=== PATIENT | male | born 1995 | race Two or more races ===

== ENCOUNTER 2024-06-07 17:27 | Inpatient (IN) | payer BC ==
[~2024-06-07] VITALS: Ht 167.6 cm; Wt 68.5 kg
[2024-06-08] VITALS (8 sets, daily range): BP systolic 109–118; BP diastolic 69–79; PULSE 94–126; RESP 17–96; TEMP 97.4–98.4; O2SAT 90–97
--- NOTE | 2024-06-08 10:52 | DVHHP2 ---
History of Present Illness History of Present Illness A 28-year-old homosexual male patient; who was recently diagnosed with HIV, not on treatment; who presented with cough to [facility] and was transferred to [facility] for further evaluation and treatment. Smoke: No ALCOHOL: none Drugs: None Review of Systems Respiratory: Cough (Productive) Allergies: Coded Allergies: NO KNOWN ALLERGIES (Unverified , 06/08/24) Exam Vital Signs Vital Signs Date Time Temp Pulse Resp B/P (MAP) Pulse Ox O2 Delivery O2 Flow Rate FiO2 06/08/24 08:53 97.9 94 17 109/75 (86) 96 97.9 06/08/24 05:35 Room Air* 0 21 Exam Multiple tattoos General Appearance: Alert, Oriented X3, Cooperative, No acute distress HEENT: Atraumatic Respiratory: Other (Scattered crackles; good air entry bilateral) Cardiovascular: Regular rate, Normal S1, Normal S2 Abdominal: Normal bowel sounds, Soft, No tenderness Neuro: Normal gait, Normal speech, Strength at 5/5 X4 ext, Normal tone, Sensation intact, Cranial nerves 3-12 NL, Reflexes 2+ Psych/Mental Status: Mental status NL, Mood NL Labs/Xrays Ordered chest CT without contrast along with blood work and sputum culture Assessment/Plan Assessment/Plan A 28-year-old homosexual male patient; who was recently diagnosed with HIV, not on treatment; who presented with cough to [facility] and was transferred to [facility] for further evaluation and treatment. #Productive cough due to bilateral pneumonia with the possibility of atypical infection including atypical tubercular mycobacterial fungal infections in the setting of recently diagnosed HIV; started on IV azithromycin and ceftriaxone; ordered and reviewed chest CT without IV contrast; ordered sputum culture; pulmonology is following; ID consulted; now on room air; to start oxygen therapy if indicated; continue monitoring #Recently diagnosed with HIV in the setting of homosexual male; ordered blood work; ID consulted; discussed using protection for sexual activities; continue monitoring #Normocytic anemia; unclear etiology; no signs/symptoms of active bleeding; continue monitoring #Elevated liver enzymes; mild; unclear etiology; avoid hepatotoxic agents; continue monitoring Goals of care discussed with the patient for 20 minutes; full code. Late Entry. This medical document was created using an electronic medical record system with computerized dictation system. Although this document has been carefully reviewed, there might still be some phonetic and typographical errors. These areas are purely typographical due to imperfections of the software programs, and do not reflect any compromise in the patient's medical care. Plan discussed with: Patient, Other (Nurse) Date of Service: Jun 08, 2024 Billing Provider: MADY BAEZ MD Common Visit Codes: 90570-[id number] INP/OBS CARE (HIGH) Secondary Visit Codes: 34580-[id number] CARE PLAN 30 MINUTES (20 minutes) MADY BAEZ MD Jun 08, 2024 10:52
[2024-06-08 11:49] LABS: Hematocrit 34.3 % (41.0-53.0); Hemoglobin 11.5 g/dL (13.5-17.5); Mean Corpuscular Hemoglobin 27.7 pg (28.0-32.0); Mean Corpuscular Hgb Conc. 33.5 g/dL (32.0-36.0); Mean Corpuscular Volume 82.6 fL (80.0-100.0); Platelet Count (auto) 253 10^3/uL (140-450); Red Blood Cells 4.16 10^6/uL (4.5-5.90); Red Cell Distribution Width 15.7 % (11.8-14.3); White Blood Cell 5.5 10^3/uL (4.4-10.8)
[2024-06-08 11:56] LABS: Basophils % (manual) 0 (0.0-2.0); Blast Cells 0; Metamyelocytes % 0; Myelocytes % 0; Promyelocytes % 0; Reactive Lymphocytes 0
[2024-06-08 11:57] LABS: Alanine Aminotransferase 30 U/L (7-40); Albumin 3.9 g/dL (3.2-4.8); Anion Gap 8 (5-15); Bilirubin, Total 0.5 mg/dL (0.2-1.0); Calcium 9.7 mg/dL (8.7-10.4); Carbon Dioxide 27 mmol/L (20-31); Chloride 101 mmol/L (98-107); Glucose 93 mg/dL (74-106); Potassium 3.7 mmol/L (3.5-5.1); Sodium 136 mmol/L (136-145); Total Protein 8.1 g/dL (5.7-8.2)
[2024-06-08 12:01] LABS: Alkaline Phosphatase 117 U/L (46-116); Aspartate Aminotransferase 45 U/L (13-40); Blood Urea Nitrogen 9 mg/dL (9-23)
[2024-06-08] MEDS: guaiFENesin-DM 100/10mg/5ml SYR PO ONE (12:10)
--- NOTE | 2024-06-08 12:30 | DVH ---
Procedure: CT CHEST WITHOUT CONTRAST Reason for study/Clinical History: 28 years old, Male; Acute respiratory distress in HIV positive pa steven.. Comparison Study: None available at time of dictation. Exam Date: 06/08/2024 11:27 AM TECHNIQUE: Multidetector CT of the chest was performed from the lung apices to the upper abdomen with out the use of intravenous contract. Axial, coronal and sagittal multiplanar reformats were performed . Radiation dose Information: CT Dose: CTDI volume is 5.45 mGy. Dose-length product is 203.89 mGy*cm The dose indicators for CT are the volume computed Tomography (CT) dose Index (CTDIvol) and the dose Length product (DLP), and are measured in units of mGy and mGy-cm, respectively. These indicators are not patient dose, but values generated from the CT scanner acquisition factors. The report includes radiation exposure data for exposures received during this examination. FINDINGS: Lower neck: Normal thyroid. Lungs: Patchy ground-glass opacities in both lungs. Nodules in the left lower lung measuring up to 23 mm and 12 mm. Atelectasis and scarring in the lung bases. Heart/Vascular Structures: Normal heart size. No pericardial effusion. Lymph Nodes: No adenopathy Pleura: No pleural effusion or significant pneumothorax. Musculoskeletal: No acute osseous abnormality. Soft tissues: Normal. Upper abdomen: Limited portions of the upper abdomen are unremarkable. IMPRESSION: 1. Patchy ground-glass opacities in both lungs with superimposed nodules in the left lower lung. Fin dings are likely infectious / inflammatory. Consider atypical infections. Nodules would be amenable t o CT-guided biopsy if clinically indicated. Recommend clinical correlation and continued follow-up to resolution. Radiation optimization: All CT scans at this facility use at least one of these dose optimization soumya hniques: Automated exposure control mA and/or kV adjustment per patient size (includes targeted exams where dose is matched to clinical indication) or iterative reconstruction. HS:Y
[2024-06-08] MEDS: AZITHROMYCIN 500MG/ 250ML 250 ML IV ONE ×2 (13:15→17:30)
[2024-06-08 13:18] LABS: Band Neutrophils % (manual) 7; Eosinophils % (manual) 4 (0-7); Lymphocytes % (manual) 25 (10.0-50.0); Monocytes % (manual) 14 (0-12); Platelet Estimate Adequate
[2024-06-08] MEDS: cefTRIAXone 1GM/50ML D5W 50 ML IV ONE (15:46)
[2024-06-08] MEDS: guaiFENesin-DM 100/10mg/5ml SYR PO PRN (16:18)
--- NOTE | 2024-06-08 17:01 | ECG ---
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
--- NOTE | 2024-06-08 19:21 | DVHINCON2 ---
Date of service: Jun 08, [address] Cruz Reason for Consultation atypical pneumonia History of Present Illness A 28 yo M with recent diagnosis of HIV at [facility] with bilateral infiltrates. The patient was transferred for possible bronchoscopy and ID evaluation to [facility] c/o cough since February, progressively getting worse. A/w some fever and weight loss. . PAST MEDICAL HISTORY: no medical problems PAST SURGICAL HISTORY: None. ALLERGIES: None. SOCIAL HISTORY: Occasionally drinks. Denies any smoking or major drug use. Homosexual. FAMILY HISTORY: Noncontributory. MEDICATIONS: Reviewed. Family History: Diabetes mellitus G8 MOTHER G8 FATHER Ischemic heart disease G8 MOTHER G8 FATHER Allergies: Coded Allergies: NO KNOWN ALLERGIES (Unverified , 06/08/24) Home Meds No Active Prescriptions or Reported Meds Current Medications Current Medications Medications (Trade) Dose Ordered Sig/Sean Route PRN Reason Start Time Stop Time Status Last Admin Guaifenesin/ Dextromethorphan (Robitussin-Dm Liquid) 10 ml Q4HP PRN PO FOR COUGH 06/08/24 11:00 06/08/24 16:18 Azithromycin 250 ml @ 125 mls/hr DAILY IV 06/09/24 10:00 06/08/24 17:27 DC Ceftriaxone Sodium 50 ml @ 100 mls/hr DAILY@09 IV 06/09/24 09:00 Azithromycin 250 ml @ 125 mls/hr DAILY IV 06/09/24 10:00 Vital Signs Vital Signs Date Time Temp Pulse Resp B/P (MAP) Pulse Ox O2 Delivery O2 Flow Rate FiO2 06/08/24 16:40 98.0 126 17 116/79 (91) 91 98.0 06/08/24 08:00 Room Air* 0 21 Physical Exam General alert and oriented HEENT: Atraumatic Neck: No swelling Lungs: Equal air entry and clear to auscultation Cardiovascular: S2 heard no murmur Abdomen: Soft nontender, no organomegaly, nondistended Neuro: Alert and oriented, no focal deficit Psych: Normal mood and affect Labs/Diagnostic Data Labs Test 06/08/24 11:16 Range/Units White Blood Count 5.5 4.4-10.8 10^3/uL Red Blood Count 4.16 L 4.5-5.90 10^6/uL Hemoglobin 11.5 L 13.5-17.5 g/dL Hematocrit 34.3 L 41.0-53.0 % Mean Corpuscular Volume 82.6 80.0-100.0 fL Mean Corpuscular Hemoglobin 27.7 L 28.0-32.0 pg Mean Corpuscular Hemoglobin Concent 33.5 32.0-36.0 g/dL Red Cell Distribution Width 15.7 H 11.8-14.3 % Platelet Count 253 140-450 10^3/uL Mean Platelet Volume 9.7 6.9-10.8 fL Neutrophils (%) (Auto) 37.0-80.0 % Lymphocytes (%) (Auto) 10.0-50.0 % Monocytes (%) (Auto) 0.0-12.0 % Basophils (%) (Auto) 0.0-2.0 % Neutrophils # (Auto) 1.6-8.6 10 ^3/uL Lymphocytes # (Auto) 0.4-5.4 10 ^3/uL Monocytes # (Auto) 0-1.3 10 ^3/uL Differential Total Cells Counted 100.0 100 Neutrophils % (Manual) 50 37.0-80.0 Band Neutrophils % (Manual) 7 Lymphocytes % (Manual) 25 10.0-50.0 Monocytes % (Manual) 14 H 0-12 Eosinophils % (Manual) 4 0-7 Basophils % (Manual) 0 0.0-2.0 Metamyelocytes % (manual) 0 Myelocytes % (Manual) 0 Promyelocytes % (Manual) 0 Blast Cells % (Manual) 0 Reactive Lymphocytes 0 Platelet Estimate Adequate Sodium Level 136 136-145 mmol/L Potassium Level 3.7 3.5-5.1 mmol/L Chloride Level 101 98-107 mmol/L Carbon Dioxide Level 27 20-31 mmol/L Anion Gap 8 5-15 Blood Urea Nitrogen 9 9-23 mg/dL Creatinine 0.60 L 0.700-1.30 mg/dL Glomerular Filtration Rate Calc 135 >90 mL/min BUN/Creatinine Ratio 15.0 10.0-20.0 Serum Glucose 93 74-106 mg/dL Calcium Level 9.7 8.7-10.4 mg/dL Total Bilirubin 0.5 0.2-1.0 mg/dL Aspartate Amino Transferase (AST) 45 H 13-40 U/L Alanine Aminotransferase (ALT) 30 7-40 U/L Alkaline Phosphatase 117 H 46-116 U/L Total Protein 8.1 5.7-8.2 g/dL Albumin 3.9 3.2-4.8 g/dL Assessment A 28 yo male with Newly diagnosed HIV multifocal pneumonia: atypical in nature pulmonary nodule Homosexual recommendations Pulmonary consult need bronchoscopy patient is clinically stable DD is MAC/ Fungal like PCP or viral.. however bacterial cannot be ruled out send sputum cultures. recommend bronch, BAL sample to be sent for bacterial, fungal, AFB and viral cultures. also need BAL for PCP, urine legionella ag mycoplasma serology send blood sample for Cd4 count. prognosis gaurded thank you for consult Plan discussed with: Other HOMERO VIGIL MD Jun 08, 2024 19:21
--- NOTE | 2024-06-08 20:16 | DVHINCON2 ---
DATE OF CONSULTATION: 06/08/2024 PULMONARY CONSULT PRIMARY PHYSICIAN: Dr. Ernestine Cruz The patient was seen earlier in the day. The patient was transferred to [facility] where he was detected to be HIV positive with bilateral infiltrates. The patient was transferred for possible bronchoscopy and ID evaluation. The patient has been having cough since February, which is sometimes getting worse and sometimes the same. The patient does bring up expectoration, it is mostly blood, but sometimes yellow. He had some fever intermittently, but does not have any fever currently. He denies any orthopnea or PND. He is mildly short of breath with exertion. He has lost about 3-4 pounds. He denies any orthopnea, PND, hemoptysis. PAST MEDICAL HISTORY: Largely unremarkable. Denies any known history of hypertension, diabetes, coronary artery disease, congestive heart failure, strokes. Denies any liver, kidney or thyroid problems. Denies any known cancers. He did not know prior to the admission that he was HIV positive. He was not on any medications. He did not know his viral load or CD4 count. He was not on any prophylaxis. PAST SURGICAL HISTORY: None. ALLERGIES: None. SOCIAL HISTORY: Occasionally drinks. Denies any smoking or major drug use. FAMILY HISTORY: Noncontributory. MEDICATIONS: Reviewed. PHYSICAL EXAMINATION: VITAL SIGNS: Stable, afebrile. Respiratory rate is 18. He is in no distress. GENERAL: He is lying flat in bed. There is no obvious orthopnea, no use of accessory muscles. HEENT: Unremarkable. Tongue moist. NECK: Supple. CHEST: Reveals bilateral rales, diminished air entry at bases. COR: S1, S2. No murmurs, no gallops. ABDOMEN: Soft, nontender. Bowel sounds normal. EXTREMITIES: No edema or clubbing. LABORATORY DATA: Lab work was noted. WBC 5.6, hematocrit 34, platelet count 253, 50% neutrophils, 25% lymphocytes, 14% monocytes. The CMP reveals AST of 45, alkaline phosphatase 117. Serology is pending. PSR is pending. The patient's ID consult is pending. CAT scan from [facility] had shown bilateral infiltrates with some areas of consolidation. There is also ground glass opacities. The patient also had CT done over here, which was reviewed and shows patchy ground glass opacities in both lungs, superimposed nodules in the left lung. HIV antibodies were positive in [place]. The CD4 count was around 89. IMPRESSION: Bilateral pneumonia, possible risk of atypical infections, risk of atypical tubercular mycobacterial fungal infections. PCP were all discussed with the patient. I will await evaluation by ID and start of antiviral therapy. We will start him on azithromycin and Rocephin, guaifenesin for sputum cultures. Titrate oxygen if needed to keep saturations greater than 90. I will await infectious control clearance before proceeding with bronchoscopy. I have asked the bedside RN to call us once that has been obtained. Risks, benefits, options, alternatives and limitations of bronchoscopy were discussed with the patient. Importance of regular followup compliance and treatment of HIV was also discussed. I have also asked him to inform his partners. Rest of medical management depends on response and course in hospital. Dr. Banda is covering for me over the weekend if needed. Thank you for asking me to see this patient. MD JUNIOR Herron/AMARI TID: [id number] RECEIPT: [id number] cc: Ernestine Cruz
[2024-06-09] VITALS (7 sets, daily range): BP systolic 96–123; BP diastolic 50–73; PULSE 98–115; RESP 18–96; TEMP 97.6–98.9; O2SAT 94–98
--- NOTE | 2024-06-09 06:57 | DVHPN2 ---
Subjective Continue to have protective cough Reviewed: Care Plan, H&P, Labs, Medications, Previous Orders, Radiology, Other (Consultations) Changes from previous H/P or p: No Changes Objective Vitals Vital Signs Date Time Temp Pulse Resp B/P (MAP) Pulse Ox O2 Delivery O2 Flow Rate FiO2 06/09/24 05:00 97.6 113 19 105/73 (84) 95 97.6 06/08/24 20:00 Room Air* 0 21 Intake/Output Intake and Output 06/09/24 07:00 Intake Total 800 ml Balance 800 ml Intake Oral 800 ml # Voids 3 # Bowel Movements 2 General Appearance: Alert, Oriented X3, Cooperative, No acute distress HEENT: Atraumatic Lungs: Other (Bibasal wet crackles) Cardiovascular: Regular rate, Normal S1, Normal S2, No murmurs Abdomen: Normal bowel sounds, Soft, No tenderness, No hepatospenomegaly Extremities: No edema Neuro: Normal speech, Cranial nerves 3-12 NL Psych/Mental Status: Mental status NL, Mood NL Medications Current Medications Medications Dose Ordered Sig/Sean Route Start Time Stop Time Status Last Admin Dose Admin Guaifenesin/ Dextromethorphan 10 ml Q4HP PRN PO 06/08/24 11:00 06/08/24 16:18 10 ML Ceftriaxone Sodium 50 ml @ 100 mls/hr DAILY@09 IV 06/09/24 09:00 Azithromycin 250 ml @ 125 mls/hr DAILY IV 06/09/24 10:00 Laboratory Results Laboratory Tests 06/08/24 11:16 Chemistry Test 06/08/24 11:16 Albumin 3.9 g/dL (3.2-4.8) Calcium Level 9.7 mg/dL (8.7-10.4) Total Protein 8.1 g/dL (5.7-8.2) LFT Test 06/08/24 11:16 Alanine Aminotransferase (ALT) 30 U/L (7-40) Alkaline Phosphatase 117 U/L (46-116) H Aspartate Amino Transferase (AST) 45 U/L (13-40) H Total Bilirubin 0.5 mg/dL (0.2-1.0) Labs and/or images reviewed: Labs reviewed by me, Image(s) reviewed by me Assessment/Plan Assessment/Plan A 28-year-old homosexual male patient; who was recently diagnosed with HIV, not on treatment; who presented with cough to [facility] and was transferred to [facility] for further evaluation and treatment. #Productive cough due to bilateral pneumonia with the possibility of atypical infection including atypical tubercular mycobacterial fungal infections in the setting of recently diagnosed HIV; started on IV azithromycin and ceftriaxone; ordered and reviewed chest CT without IV contrast; ordered sputum culture; pulmonology is following; ID is following: Recommended bronchoscopy with BAL; now on room air; to start oxygen therapy if indicated; continue monitoring #Recently diagnosed with HIV in the setting of homosexual male; pending blood work; ID is following; discussed using protection for sexual activities; continue monitoring #Normocytic anemia; unclear etiology; no signs/symptoms of active bleeding; continue monitoring #Elevated liver enzymes; mild; unclear etiology; avoid hepatotoxic agents; continue monitoring Late Entry. This medical document was created using an electronic medical record system with computerized dictation system. Although this document has been carefully reviewed, there might still be some phonetic and typographical errors. These areas are purely typographical due to imperfections of the software programs, and do not reflect any compromise in the patient's medical care. Plan discussed with: Patient, Other (Nurse) My Orders Orders - MADY BAEZ MD Procedure Category Date Status Time Admit ADMIT 06/08/24 Transmitted 10:52 * Infectious [place]- Dr. CONS 06/08/24 Transmitted [place] 10:55 Regular Diet DIET 06/08/24 Transmitted Lunch Guaifenesin-Dextromet PHA 06/08/24 In Process Liquid (Robitussin 11:[address] 06/08/24 Resulted 10:55 Hiv 1 Quant Pcr LAB 06/08/24 In Process Nongraphical 11:00 Complete Blood Count LAB 06/09/24 Logged 04:00 Comprehensive LAB 06/09/24 Logged Metabolic Panel 04:00 Ceftriaxone 1gm/50ml PHA 06/09/24 In Process D5w (Rocephin) 09:00 Azithromycin 500mg/ PHA 06/09/24 In Process 250ml (Zithromax 50 10:00 Hiv 1&2 Antibody LAB 06/08/24 Logged 18:46 Code Status CODE 06/09/24 Transmitted 06:47 Complete Blood Count LAB 06/10/24 Verified 04:00 Comprehensive LAB 06/10/24 Verified Metabolic Panel 04:00 Complete Blood Count LAB 06/11/24 Verified 05:00 Complete Blood Count LAB 06/12/24 Verified 05:00 Complete Blood Count LAB 06/13/24 Verified 05:00 Complete Blood Count LAB 06/14/24 Verified 05:00 Comprehensive LAB 06/11/24 Verified Metabolic Panel 04:00 Date of Service: Jun 09, 2024 Billing Provider: MADY BAEZ MD Common Visit Codes: [id number] INP/OBS CARE(HIGH) MADY BAEZ MD Jun 09, 2024 06:57
[2024-06-09] MEDS ORDERED: AZITHROMYCIN 500MG/ 250ML 250 ML IV SCH (10:00)
[2024-06-09 10:53] LABS: Hemoglobin 11.8 g/dL (13.5-17.5); Mean Corpuscular Hemoglobin 27.9 pg (28.0-32.0); Mean Corpuscular Hgb Conc. 33.8 g/dL (32.0-36.0); Mean Corpuscular Volume 82.5 fL (80.0-100.0); Platelet Count (auto) 262 10^3/uL (140-450); Red Blood Cells 4.24 10^6/uL (4.5-5.90); Red Cell Distribution Width 15.9 % (11.8-14.3); White Blood Cell 5.4 10^3/uL (4.4-10.8)
[2024-06-09 10:56] LABS: Basophils % (manual) 0 (0.0-2.0); Blast Cells 0; Metamyelocytes % 0; Myelocytes % 0; Promyelocytes % 0; Reactive Lymphocytes 0
[2024-06-09 11:03] LABS: Alanine Aminotransferase 31 U/L (7-40); Anion Gap 7 (5-15); BUN/Creatinine Ratio 14.8 (10.0-20.0); Bilirubin, Total 0.5 mg/dL (0.2-1.0); Blood Urea Nitrogen 9 mg/dL (9-23); Calcium 9.5 mg/dL (8.7-10.4); Carbon Dioxide 27 mmol/L (20-31); Chloride 101 mmol/L (98-107); Potassium 3.7 mmol/L (3.5-5.1); Total Protein 8.1 g/dL (5.7-8.2)
[2024-06-09] MEDS: cefTRIAXone 1GM/50ML D5W 50 ML IV SCH (11:08)
[2024-06-09 11:10] LABS: Alkaline Phosphatase 119 U/L (46-116); Aspartate Aminotransferase 40 U/L (13-40); Glucose 114 mg/dL (74-106); Sodium 135 mmol/L (136-145)
[2024-06-09 11:22] LABS: Band Neutrophils % (manual) 2; Eosinophils % (manual) 6 (0-7); Lymphocytes % (manual) 21 (10.0-50.0); Monocytes % (manual) 9 (0-12)
[2024-06-09 11:25] LABS: Platelet Estimate Adequate
[2024-06-09] MEDS: AZITHROMYCIN 500MG/ 250ML 250 ML IV SCH (11:38)
--- NOTE | 2024-06-09 21:21 | DVHPN2 ---
Progress Note - Dictate Date Seen: Jun 09, 2024 Medical Necessity Reason Pt with a Central, PICC or Fol: No Subjective patient is awake and alert. No S/S of distress/SOB or pain. vital signs Vital Sign Date Time Temp Pulse Resp B/P (MAP) Pulse Ox O2 Delivery O2 Flow Rate FiO2 06/09/24 17:00 98.9 111 20 105/52 (69) 96 98.9 06/09/24 07:37 Room Air* 0 21 Total Intake and Output 06/08/24 06/08/24 06/09/24 15:00 23:00 07:00 Intake Total 500 ml 300 ml Balance 500 ml 300 ml medications Current Medications Medications Dose Ordered Sig/Sean Route Start Time Stop Time Status Last Admin Dose Admin Guaifenesin/ Dextromethorphan 10 ml Q4HP PRN PO 06/08/24 11:00 06/09/24 14:24 10 ML Ceftriaxone Sodium 50 ml @ 100 mls/hr DAILY@09 IV 06/09/24 09:00 06/09/24 11:08 100 MLS/HR Azithromycin 250 ml @ 125 mls/hr DAILY IV 06/09/24 10:00 06/09/24 11:38 125 MLS/HR Enoxaparin Sodium 40 mg DAILY SC 06/10/24 10:00 objective General Appearance: Alert, Oriented X3, Cooperative, No acute distress HEENT: Atraumatic Respiratory: Other (Scattered crackles; good air entry bilateral) Cardiovascular: Regular rate, Normal S1, Normal S2 Abdominal: Normal bowel sounds, Soft, No tenderness Neuro: Normal gait, Normal speech, Strength at 5/5 X4 ext, Normal tone, Sensation intact, Cranial nerves 3-12 NL, Reflexes 2+ Psych/Mental Status: Mental status NL, Mood NL laboratory and microbiology Laboratory Tests 06/09/24 10:26 Test 06/09/24 10:26 Range/Units Serum Glucose 114 H 74-106 mg/dL Assessment/Plan A 28 yo male with Newly diagnosed HIV multifocal pneumonia: atypical in nature pulmonary nodule Homosexual elevated LFT anemia recommendations Pulmonary consult need bronchoscopy patient is clinically stable ; cont ceftriaxone and Azithromycin DD is MAC/ Fungal like PCP or viral.. however bacterial cannot be ruled out send sputum cultures. recommend bronch, BAL sample to be sent for bacterial, fungal, AFB and viral cultures. also need BAL for PCP, urine legionella ag mycoplasma serology send blood sample for Cd4 count. prognosis gaurded thank you for consult Plan discussed with: HOMERO Gray MD Jun 09, 2024 21:21
--- NOTE | 2024-06-09 23:51 | DVHINCON2 ---
Date of service: Jun 09, 2024 Referring Physician Ernestine Cruz MD Reason for Consultation Cough, possible bronchoscopy History of Present Illness A 28-year-old man with recent diagnosis of HIV at [facility] with bilateral infiltrates. The patient was transferred for possible bronchoscopy and ID evaluation to [facility] on 06/08/24. Patient complains of cough since February, progressively getting worse and associated with some fever and weight loss. Patient was admitted for further care and pulmonary consultation is requested for evaluation and management due to the above findings. Review of Systems: 14-point review of systems negative unless otherwise noted above. Past Medical History: Recent diagnosis of HIV Past Surgical History: Denies Medications: Reviewed. Allergies: No known drug allergies. Family History: DM and heart disease. Social History: Nonsmoker. Alcohol - occasionally drinks. No illicit drug use. Patient is homosexual. Family History: Diabetes mellitus G8 MOTHER G8 FATHER Ischemic heart disease G8 MOTHER G8 FATHER Allergies: Coded Allergies: NO KNOWN ALLERGIES (Unverified , 06/08/24) Home Meds No Active Prescriptions or Reported Meds Current Medications Current Medications Medications (Trade) Dose Ordered Sig/Sean Route PRN Reason Start Time Stop Time Status Last Admin Azithromycin 250 ml @ 125 mls/hr DAILY IV 06/09/24 10:00 06/08/24 17:27 DC Ceftriaxone Sodium 50 ml @ 100 mls/hr DAILY@09 IV 06/09/24 09:00 06/09/24 11:08 Azithromycin 250 ml @ 125 mls/hr DAILY IV 06/09/24 10:00 06/09/24 11:38 Enoxaparin Sodium (Lovenox) 40 mg DAILY SC 06/10/24 10:00 Vital Signs Vital Signs Date Time Temp Pulse Resp B/P (MAP) Pulse Ox O2 Delivery O2 Flow Rate FiO2 06/09/24 21:00 98.5 115 18 123/73 (90) 94 98.5 06/09/24 20:00 Room Air* 0 21 Physical Exam Gen.: Patient lying in bed in no apparent distress. Breathing on room air. Head: Normocephalic, atraumatic. Eyes: EOMI/PERRLA. Ears: Normal hearing. Normal anatomy. Neck/trachea: Trachea midline, supple. Nose: Normal external anatomy. Mouth: Moist mucous membranes. Chest: Decreased air entry bilaterally. No wheezing or rhonchi. Cardiovascular: Positive S1, positive S2. Regular rate and rhythm. Abdomen: Positive bowel sounds in all 4 quadrants. Soft, non-tender, non- distended. : Deferred. Rectal: Deferred. Skin: Warm, dry. Intact. Extremities: 2+ radial pulses bilaterally. No lower extremity edema. Neuro: Awake, alert, oriented x3. No gross motor or sensory deficits. Cranial nerves II through XII intact. Gait not assessed. Labs/Diagnostic Data Labs Test 06/09/24 23:22 06/09/24 10:26 06/08/24 11:16 Range/Units White Blood Count 5.4 4.4-10.8 10^3/uL Red Blood Count 4.24 L 4.5-5.90 10^6/uL Hemoglobin 11.8 L 13.5-17.5 g/dL Hematocrit 35.0 L 41.0-53.0 % Mean Corpuscular Volume 82.5 80.0-100.0 fL Mean Corpuscular Hemoglobin 27.9 L 28.0-32.0 pg Mean Corpuscular Hemoglobin Concent 33.8 32.0-36.0 g/dL Red Cell Distribution Width 15.9 H 11.8-14.3 % Platelet Count 262 140-450 10^3/uL Mean Platelet Volume 9.7 6.9-10.8 fL Neutrophils (%) (Auto) 37.0-80.0 % Lymphocytes (%) (Auto) 10.0-50.0 % Monocytes (%) (Auto) 0.0-12.0 % Basophils (%) (Auto) 0.0-2.0 % Neutrophils # (Auto) 1.6-8.6 10 ^3/uL Lymphocytes # (Auto) 0.4-5.4 10 ^3/uL Monocytes # (Auto) 0-1.3 10 ^3/uL Differential Total Cells Counted 100.0 100 Neutrophils % (Manual) 62 37.0-80.0 Band Neutrophils % (Manual) 2 Lymphocytes % (Manual) 21 10.0-50.0 Monocytes % (Manual) 9 0-12 Eosinophils % (Manual) 6 0-7 Basophils % (Manual) 0 0.0-2.0 Metamyelocytes % (manual) 0 Myelocytes % (Manual) 0 Promyelocytes % (Manual) 0 Blast Cells % (Manual) 0 Reactive Lymphocytes 0 Platelet Estimate Adequate Sodium Level 135 L 136-145 mmol/L Potassium Level 3.7 3.5-5.1 mmol/L Chloride Level 101 98-107 mmol/L Carbon Dioxide Level 27 20-31 mmol/L Anion Gap 7 5-15 Blood Urea Nitrogen 9 9-23 mg/dL Creatinine 0.61 L 0.700-1.30 mg/dL Glomerular Filtration Rate Calc 134 >90 mL/min BUN/Creatinine Ratio 14.8 10.0-20.0 Serum Glucose 114 H 74-106 mg/dL Calcium Level 9.5 8.7-10.4 mg/dL Total Bilirubin 0.5 0.2-1.0 mg/dL Aspartate Amino Transferase (AST) 40 13-40 U/L Alanine Aminotransferase (ALT) 31 7-40 U/L Alkaline Phosphatase 119 H 46-116 U/L Total Protein 8.1 5.7-8.2 g/dL Albumin 4.0 3.2-4.8 g/dL HIV (1&2) Antibody Deferred Negative Assessment Impression: Cough HIV (recent diagnosis) Anemia Elevated LFTs Acute hypoxic respiratory failure, resolved Plan: Supplemental oxygen PRN Titrate to keep O2 sats above 92%. Follow up ID recommendations regarding bronch with BAL to r/o opportunistic infection Continue antibiotics Follow up cultures Monitor renal function. Monitor electrolytes. Supplement as necessary. Monitor ins and outs. DVT prophylaxis. Prognosis: Poor given patient's multiple co-morbidities. Rest of plan per hospitalist and other consultants. Thank you Dr. Cruz, for allowing me to participate in this patient's care. Further recommendations will depend on the patient's clinical course. Please do not hesitate to contact me if you have any questions or concerns. This medical document was created using an electronic medical record system with [employer] dictation system. Although these documentations are being carefully reviewed, there may still be some phonetic and typographical changes. The errors are purely typographical, due to imperfection on the software program, and do not reflect any compromise in the patient's medical care. Plan discussed with: Patient, Other (RN/MD Cruz) ANGELIC OTOOLE MD Jun 09, 2024 23:51
[2024-06-10] VITALS (8 sets, daily range): BP systolic 111–132; BP diastolic 66–84; PULSE 105–114; RESP 18–20; TEMP 98.1–98.7; O2SAT 95–97
[2024-06-10 05:55] LABS: Hemoglobin 11.7 g/dL (13.5-17.5); Mean Corpuscular Hemoglobin 27.6 pg (28.0-32.0); Mean Corpuscular Hgb Conc. 33.5 g/dL (32.0-36.0); Mean Corpuscular Volume 82.4 fL (80.0-100.0); Platelet Count (auto) 246 10^3/uL (140-450); Red Blood Cells 4.24 10^6/uL (4.5-5.90); White Blood Cell 4.9 10^3/uL (4.4-10.8)
[2024-06-10 06:05] LABS: Basophils % (manual) 0 (0.0-2.0); Blast Cells 0; Metamyelocytes % 0; Myelocytes % 0; Promyelocytes % 0; Reactive Lymphocytes 0
[2024-06-10 06:17] LABS: Alanine Aminotransferase 31 U/L (7-40); Albumin 3.9 g/dL (3.2-4.8); Anion Gap 7 (5-15); Aspartate Aminotransferase 36 U/L (13-40); BUN/Creatinine Ratio 13.3 (10.0-20.0); Calcium 9.6 mg/dL (8.7-10.4); Carbon Dioxide 25 mmol/L (20-31); Chloride 102 mmol/L (98-107); Glucose 103 mg/dL (74-106); Potassium 3.8 mmol/L (3.5-5.1)
[2024-06-10 06:18] LABS: Bilirubin, Total 0.4 mg/dL (0.2-1.0); Total Protein 8.1 g/dL (5.7-8.2)
[2024-06-10 06:34] LABS: Alkaline Phosphatase 121 U/L (46-116); Blood Urea Nitrogen 8 mg/dL (9-23); Sodium 134 mmol/L (136-145)
[2024-06-10 07:32] LABS: Band Neutrophils % (manual) 10; Eosinophils % (manual) 2 (0-7); Lymphocytes % (manual) 23 (10.0-50.0); Monocytes % (manual) 9 (0-12); Platelet Estimate Adequate
[2024-06-10] MEDS: ENOXAPARIN SOD 40 MG/0.4 ML SYRINGE SC SCH (09:55)
--- NOTE | 2024-06-10 16:15 | DVHPN2 ---
Subjective Decreasing protective cough Reviewed: Care Plan, H&P, Labs, Medications, Previous Orders, Radiology, Other (Consultations) Changes from previous H/P or p: Changes Objective Vitals Vital Signs Date Time Temp Pulse Resp B/P (MAP) Pulse Ox O2 Delivery O2 Flow Rate FiO2 06/10/24 13:00 98.1 105 18 114/66 (82) 96 98.1 06/10/24 08:10 Room Air* 0 21 Intake/Output Intake and Output 06/10/24 07:00 Intake Total 2210 ml Balance 2210 ml Intake Oral 1910 ml IV Total 300 ml # Voids 5 # Bowel Movements 1 General Appearance: Alert, Oriented X3, Cooperative, No acute distress HEENT: Atraumatic Lungs: Other (Bibasal wet crackles) Cardiovascular: Regular rate, Normal S1, Normal S2, No murmurs Abdomen: Normal bowel sounds, Soft, No tenderness, No hepatospenomegaly Extremities: No edema Neuro: Normal speech, Cranial nerves 3-12 NL Psych/Mental Status: Mental status NL, Mood NL Medications Current Medications Medications Dose Ordered Sig/Sean Route Start Time Stop Time Status Last Admin Dose Admin Guaifenesin/ Dextromethorphan 10 ml Q4HP PRN PO 06/08/24 11:00 06/10/24 09:10 10 ML Ceftriaxone Sodium 50 ml @ 100 mls/hr DAILY@09 IV 06/09/24 09:00 06/10/24 09:01 100 MLS/HR Azithromycin 250 ml @ 125 mls/hr DAILY IV 06/09/24 10:00 06/10/24 09:55 125 MLS/HR Enoxaparin Sodium 40 mg DAILY SC 06/10/24 10:00 06/10/24 09:55 40 MG Laboratory Results Laboratory Tests 06/10/24 05:42 Chemistry Test 06/10/24 05:42 Albumin 3.9 g/dL (3.2-4.8) Calcium Level 9.6 mg/dL (8.7-10.4) Total Protein 8.1 g/dL (5.7-8.2) LFT Test 06/10/24 05:42 Alanine Aminotransferase (ALT) 31 U/L (7-40) Alkaline Phosphatase 121 U/L (46-116) H Aspartate Amino Transferase (AST) 36 U/L (13-40) Total Bilirubin 0.4 mg/dL (0.2-1.0) Microbiology Microbiology Date/Time Source Procedure Growth Status 06/09/24 05:00 Sputum Gram Stain - Final Resulted 06/09/24 05:00 Sputum Respiratory Culture - Preliminary Resulted Labs and/or images reviewed: Labs reviewed by me, Image(s) reviewed by me Assessment/Plan Assessment/Plan A 28-year-old homosexual male patient; who was recently diagnosed with HIV, not on treatment; who presented with cough to [facility] and was transferred to [facility] for further evaluation and treatment. #Productive cough due to bilateral pneumonia with the possibility of atypical infection including atypical tubercular mycobacterial fungal infections in the setting of recently diagnosed HIV; continue IV azithromycin and ceftriaxone; ordered and reviewed chest CT without IV contrast; reviewed initial results of sputum culture; pulmonology is following; ID is following: Recommended bronchoscopy with BAL; now on room air; to start oxygen therapy if indicated; to rule out TB; to keep in airborne isolation; continue monitoring #Recently diagnosed with HIV in the setting of homosexual male; reviewed resulted blood work by ID; ID is following; discussed using protection for sexual activities; continue monitoring #Normocytic anemia; unclear etiology; no signs/symptoms of active bleeding; continue monitoring #Elevated liver enzymes; mild; unclear etiology; avoid hepatotoxic agents; continue monitoring #Hyponatremia; very mild; asymptomatic; unclear etiology; continue monitoring Late Entry. This medical document was created using an electronic medical record system with computerized dictation system. Although this document has been carefully reviewed, there might still be some phonetic and typographical errors. These areas are purely typographical due to imperfections of the software programs, and do not reflect any compromise in the patient's medical care. Plan discussed with: Patient, Other (Nurse) Date of Service: Jun 10, 2024 Billing Provider: MADY BAEZ MD Common Visit Codes: [id number] INP/OBS CARE(HIGH) MADY BAEZ MD Jun 10, 2024 16:15
--- NOTE | 2024-06-10 19:41 | DVHPN2 ---
Progress Note - Dictate Date Seen: Jun 10, 2024 Medical Necessity Reason Pt with a Central, PICC or Fol: No Subjective patient is awake and alert. No S/S of distress/SOB or pain. Continue to have cough vital signs Vital Sign Date Time Temp Pulse Resp B/P (MAP) Pulse Ox O2 Delivery O2 Flow Rate FiO2 06/10/24 16:33 98.7 110 20 132/84 (100) 97 98.7 06/10/24 08:10 Room Air* 0 21 Total Intake and Output 06/09/24 06/09/24 06/10/24 15:00 23:00 07:00 Intake Total 300 ml 1260 ml 650 ml Balance 300 ml 1260 ml 650 ml medications Current Medications Medications Dose Ordered Sig/Sean Route Start Time Stop Time Status Last Admin Dose Admin Guaifenesin/ Dextromethorphan 10 ml Q4HP PRN PO 06/08/24 11:00 06/10/24 09:10 10 ML Ceftriaxone Sodium 50 ml @ 100 mls/hr DAILY@09 IV 06/09/24 09:00 06/10/24 09:01 100 MLS/HR Azithromycin 250 ml @ 125 mls/hr DAILY IV 06/09/24 10:00 06/10/24 09:55 125 MLS/HR Enoxaparin Sodium 40 mg DAILY SC 06/10/24 10:00 06/10/24 09:55 40 MG objective General Appearance: Alert, Oriented X3, Cooperative, No acute distress HEENT: Atraumatic Respiratory: Other (Scattered crackles; good air entry bilateral) Cardiovascular: Regular rate, Normal S1, Normal S2 Abdominal: Normal bowel sounds, Soft, No tenderness Neuro: Normal gait, Normal speech, Strength at 5/5 X4 ext, Normal tone, Sensation intact, Cranial nerves 3-12 NL, Reflexes 2+ Psych/Mental Status: Mental status NL, Mood NL laboratory and microbiology Laboratory Tests 06/10/24 05:42 Test 06/10/24 05:42 Range/Units Serum Glucose 103 74-106 mg/dL Assessment/Plan A 28 yo male with Newly diagnosed HIV multifocal pneumonia: atypical in nature pulmonary nodule Homosexual elevated LFT anemia recommendations Pulmonary consult need bronchoscopy patient is clinically stable ; cont ceftriaxone and Azithromycin DD is MAC/ Fungal like PCP or viral.. however bacterial cannot be ruled out send sputum cultures. recommend bronch, BAL sample to be sent for bacterial, fungal, AFB and viral cultures. also need BAL for PCP, urine legionella ag mycoplasma serology send blood sample for Cd4 count. 06/09 : Blood cultures : WBC . epithelial cells and gram positive cocci in pairs present respiratory cultures ; Many growth : Normal Oropharyngeal Karina prognosis gaurded thank you for consult Plan discussed with: Patient HOMERO VIGIL MD Jun 10, 2024 19:41
--- NOTE | 2024-06-10 23:26 | DVHPN2 ---
Progress Note - Dictate Date Seen: Jun 10, 2024 Medical Necessity Reason Pt with a Central, PICC or Fol: No Subjective Patient seen and examined at bedside. Breathing comfortably on room air. Overnight events reviewed. vital signs Vital Sign Date Time Temp Pulse Resp B/P (MAP) Pulse Ox O2 Delivery O2 Flow Rate FiO2 06/10/24 21:00 98.3 111 18 111/66 (81) 96 98.3 06/10/24 20:00 Room Air* 0 21 Total Intake and Output 06/09/24 06/09/24 06/10/24 15:00 23:00 07:00 Intake Total 300 ml 1260 ml 650 ml Balance 300 ml 1260 ml 650 ml medications Current Medications Medications Dose Ordered Sig/Sean Route Start Time Stop Time Status Last Admin Dose Admin Guaifenesin/ Dextromethorphan 10 ml Q4HP PRN PO 06/08/24 11:00 06/10/24 20:41 10 ML Ceftriaxone Sodium 50 ml @ 100 mls/hr DAILY@09 IV 06/09/24 09:00 06/10/24 09:01 100 MLS/HR Azithromycin 250 ml @ 125 mls/hr DAILY IV 06/09/24 10:00 06/10/24 09:55 125 MLS/HR Enoxaparin Sodium 40 mg DAILY SC 06/10/24 10:00 06/10/24 09:55 40 MG objective Gen.: Patient lying in bed in no apparent distress. Breathing on room air. Head: Normocephalic, atraumatic. Eyes: EOMI/PERRLA. Ears: Normal hearing. Normal anatomy. Neck/trachea: Trachea midline, supple. Nose: Normal external anatomy. Mouth: Moist mucous membranes. Chest: Decreased air entry bilaterally. No wheezing or rhonchi. Cardiovascular: Positive S1, positive S2. Regular rate and rhythm. Abdomen: Positive bowel sounds in all 4 quadrants. Soft, non-tender, non- distended. : Deferred. Rectal: Deferred. Skin: Warm, dry. Intact. Extremities: 2+ radial pulses bilaterally. No lower extremity edema. Neuro: Awake, alert, oriented x3. No gross motor or sensory deficits. Cranial nerves II through XII intact. Gait not assessed. laboratory and microbiology Laboratory Tests 06/10/24 05:42 Test 06/10/24 05:42 Range/Units Serum Glucose 103 74-106 mg/dL Assessment/Plan Impression: Cough HIV (recent diagnosis) Anemia Elevated LFTs Events: Remains on room air No respiratory distress. Continue antibiotics Antitussive for cough Obtain consent for bronchoscopy ID recommendations appreciated. Labs reviewed. Rest of plan as noted below Plan: Supplemental oxygen PRN Titrate to keep O2 sats above 92%. ID recommendations appreciated. Obtain consent for bronchoscopy with BAL to r/o opportunistic infection Continue antibiotics Follow up cultures Monitor renal function. Monitor electrolytes. Supplement as necessary. Monitor ins and outs. DVT prophylaxis. Prognosis: Poor given patient's multiple co-morbidities. Rest of plan per hospitalist and other consultants. Thank you Dr. Cruz, for allowing me to participate in this patient's care. Further recommendations will depend on the patient's clinical course. Please do not hesitate to contact me if you have any questions or concerns. This medical document was created using an electronic medical record system with [employer] dictation system. Although these documentations are being carefully reviewed, there may still be some phonetic and typographical changes. The errors are purely typographical, due to imperfection on the software program, and do not reflect any compromise in the patient's medical care. Plan discussed with: Patient, Other (AALIYAH Rain) ANGELIC OTOOLE MD Jun 10, 2024 23:26
[2024-06-11] VITALS (16 sets, daily range): BP systolic 107–120; BP diastolic 70–80; PULSE 101–130; RESP 16–20; TEMP 97.8–100; O2SAT 88–99
[2024-06-11 07:04] LABS: Alanine Aminotransferase 27 U/L (7-40); Albumin 4.2 g/dL (3.2-4.8); Anion Gap 9 (5-15); Aspartate Aminotransferase 36 U/L (13-40); BUN/Creatinine Ratio 13.6 (10.0-20.0); Bilirubin, Total 0.6 mg/dL (0.2-1.0); Calcium 9.9 mg/dL (8.7-10.4); Carbon Dioxide 24 mmol/L (20-31); Chloride 100 mmol/L (98-107); Glucose 96 mg/dL (74-106); Potassium 3.9 mmol/L (3.5-5.1)
[2024-06-11 07:12] LABS: Hematocrit 36.4 % (41.0-53.0); Hemoglobin 12.1 g/dL (13.5-17.5); Mean Corpuscular Hemoglobin 27.3 pg (28.0-32.0); Mean Corpuscular Hgb Conc. 33.1 g/dL (32.0-36.0); Mean Corpuscular Volume 82.5 fL (80.0-100.0); Platelet Count (auto) 270 10^3/uL (140-450); Red Blood Cells 4.42 10^6/uL (4.5-5.90); Red Cell Distribution Width 16.1 % (11.8-14.3); White Blood Cell 6.3 10^3/uL (4.4-10.8)
[2024-06-11 07:13] LABS: Alkaline Phosphatase 123 U/L (46-116); Blood Urea Nitrogen 9 mg/dL (9-23); Sodium 133 mmol/L (136-145); Total Protein 8.7 g/dL (5.7-8.2)
[2024-06-11 08:13] LABS: Basophils % (manual) 0 (0.0-2.0); Blast Cells 0; Metamyelocytes % 0; Myelocytes % 0; Promyelocytes % 0; Reactive Lymphocytes 0
[2024-06-11 09:09] LABS: Band Neutrophils % (manual) 2; Eosinophils % (manual) 4 (0-7); Lymphocytes % (manual) 25 (10.0-50.0); Monocytes % (manual) 8 (0-12); Platelet Estimate Adequate
--- NOTE | 2024-06-11 11:40 | DVHPN2 ---
Subjective Complaining of shortness of breath, and chills Reviewed: Care Plan, H&P, Labs, Medications, Previous Orders, Radiology, Other (Consultations) Changes from previous H/P or p: Changes Objective Vitals Vital Signs Date Time Temp Pulse Resp B/P (MAP) Pulse Ox O2 Delivery O2 Flow Rate FiO2 06/11/24 08:32 97.8 110 18 117/80 (92) 95 97.8 06/11/24 08:06 Room Air* 0 21 Intake/Output Intake and Output 06/11/24 07:00 Intake Total 2260 ml Balance 2260 ml Intake Oral 1960 ml IV Total 300 ml # Voids 5 General Appearance: Alert, Oriented X3, Cooperative, moderate distress HEENT: Atraumatic Lungs: Other (Bibasal wet crackles) Cardiovascular: Regular rate, Normal S1, Normal S2, No murmurs Abdomen: Normal bowel sounds, Soft, No tenderness, No hepatospenomegaly Extremities: No edema Neuro: Normal speech, Cranial nerves 3-12 NL Psych/Mental Status: Mental status NL, Mood NL Medications Current Medications Medications Dose Ordered Sig/Sean Route Start Time Stop Time Status Last Admin Dose Admin Guaifenesin/ Dextromethorphan 10 ml Q4HP PRN PO 06/08/24 11:00 06/11/24 09:27 10 ML Ceftriaxone Sodium 50 ml @ 100 mls/hr DAILY@09 IV 06/09/24 09:00 06/11/24 08:55 100 MLS/HR Azithromycin 250 ml @ 125 mls/hr DAILY IV 06/09/24 10:00 06/11/24 09:28 125 MLS/HR Enoxaparin Sodium 40 mg DAILY SC 06/10/24 10:00 06/11/24 09:27 40 MG Laboratory Results Laboratory Tests 06/11/24 06:00 Chemistry Test 06/11/24 06:00 Albumin 4.2 g/dL (3.2-4.8) Calcium Level 9.9 mg/dL (8.7-10.4) Total Protein 8.7 g/dL (5.7-8.2) H LFT Test 06/11/24 06:00 Alanine Aminotransferase (ALT) 27 U/L (7-40) Alkaline Phosphatase 123 U/L (46-116) H Aspartate Amino Transferase (AST) 36 U/L (13-40) Total Bilirubin 0.6 mg/dL (0.2-1.0) Microbiology Microbiology Date/Time Source Procedure Growth Status 06/09/24 05:00 Sputum Gram Stain - Final Resulted 06/09/24 05:00 Sputum Respiratory Culture - Preliminary Resulted Labs and/or images reviewed: Labs reviewed by me, Image(s) reviewed by me Assessment/Plan Assessment/Plan A 28-year-old homosexual male patient; who was recently diagnosed with HIV, not on treatment; who presented with cough to [facility] and was transferred to [facility] for further evaluation and treatment. #Suspected sepsis in the setting of fever and tachycardia; due to suspected bilateral pneumonia; ordered repeat blood cultures; continue current IV antibiotics; ID is following; ordered lactic acid; continue close monitoring #Acute hypoxic respiratory failure; sudden onset with decreased O2 saturation on room air to 88%; ordered and reviewed repeat chest x-ray; started on oxygen therapy as indicated; ordered nebulizer treatments; ordered D-dimer; continue close monitoring #Productive cough due to bilateral pneumonia with the possibility of atypical infection including atypical tubercular mycobacterial fungal infections in the setting of recently diagnosed HIV; continue IV azithromycin and ceftriaxone; ordered and reviewed chest CT without IV contrast; reviewed initial results of sputum culture; pulmonology is following; ID is following: Recommended bronchoscopy with BAL; now on room air; to start oxygen therapy if indicated; to rule out TB; to keep in airborne isolation; continue monitoring #Recently diagnosed with HIV in the setting of homosexual male; reviewed resulted blood work by ID; ID is following; discussed using protection for sexual activities; continue monitoring #Normocytic anemia; unclear etiology; no signs/symptoms of active bleeding; continue monitoring #Elevated liver enzymes; mild; unclear etiology; avoid hepatotoxic agents; continue monitoring #Hyponatremia; very mild; asymptomatic; unclear etiology; continue monitoring #Elevated D-dimer; ordered chest angiogram; on DVT prophylaxis; continue close monitoring 55 minutes of critical care time. Late Entry. This medical document was created using an electronic medical record system with computerized dictation system. Although this document has been carefully reviewed, there might still be some phonetic and typographical errors. These areas are purely typographical due to imperfections of the software programs, and do not reflect any compromise in the patient's medical care. Plan discussed with: Patient, Other (Nurse) Date of Service: Jun 11, 2024 Billing Provider: MADY BAEZ MD Common Visit Codes: [id number] CARE 30-74 MIN (55 minutes) MADY BAEZ MD Jun 11, 2024 11:40
[2024-06-11] MEDS: ALBUTEROL SULF 2.5 MG/0.5ML(0.5%) NEB SOLN NEB SCH (14:42)
--- NOTE | 2024-06-11 15:19 | DVH ---
Chest x-ray AP portable Comparison: CT chest done 06/08/2024 CLINICAL INDICATION: Shortness of breath FINDINGS: Heart size is normal. Bilateral lower lobe infiltrates, right greater than left. IMPRESSION: 1. Compared to prior CT exam continuing evidence of bibasilar infiltrates
--- NOTE | 2024-06-11 17:13 | DVHPN2 ---
Progress Note - Dictate Date Seen: Jun 11, 2024 Medical Necessity Reason Pt with a Central, PICC or Fol: No Subjective No new acute complaint noted at this time. Decreasing productive cough. vital signs Vital Sign Date Time Temp Pulse Resp B/P (MAP) Pulse Ox O2 Delivery O2 Flow Rate FiO2 06/11/24 16:32 98.6 118 20 111/76 (88) 97 98.6 06/11/24 15:06 2.0 06/11/24 14:42 Nasal Cannula* 28 Total Intake and Output 06/10/24 06/10/24 06/11/24 15:00 23:00 07:00 Intake Total 300 ml 1460 ml 500 ml Balance 300 ml 1460 ml 500 ml medications Current Medications Medications Dose Ordered Sig/Sean Route Start Time Stop Time Status Last Admin Dose Admin Guaifenesin/ Dextromethorphan 10 ml Q4HP PRN PO 06/08/24 11:00 06/11/24 09:27 10 ML Ceftriaxone Sodium 50 ml @ 100 mls/hr DAILY@09 IV 06/09/24 09:00 06/11/24 08:55 100 MLS/HR Azithromycin 250 ml @ 125 mls/hr DAILY IV 06/09/24 10:00 06/11/24 09:28 125 MLS/HR Enoxaparin Sodium 40 mg DAILY SC 06/10/24 10:00 06/11/24 09:27 40 MG Albuterol 2.5 mg Q4HR NEB 06/11/24 11:45 06/11/24 14:42 2.5 MG objective General Appearance: Alert, Oriented X3, Cooperative, No acute distress HEENT: Atraumatic Respiratory: Other (Scattered crackles; good air entry bilateral) Cardiovascular: Regular rate, Normal S1, Normal S2 Abdominal: Normal bowel sounds, Soft, No tenderness Neuro: Normal gait, Normal speech, Strength at 5/5 X4 ext, Normal tone, Sensation intact, Cranial nerves 3-12 NL, Reflexes 2+ Psych/Mental Status: Mental status NL, Mood NL laboratory and microbiology Laboratory Tests 06/11/24 06:00 Test 06/11/24 06:00 Range/Units Serum Glucose 96 74-106 mg/dL Assessment/Plan Patient is a 28-year-old male with AIDS, Cd4: 89 multifocal pneumonia: atypical in nature pulmonary nodule Homosexual elevated LFT anemia Recommendations Patient denies exposure to TB, travel to endemic country, being homeless or in half-way. denies iv drug use. 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 Pulmonary consulted Plan for bronchoscopy tomorrow Patient is clinically stable ; cont Ceftriaxone and Azithromycin DD is MAC/ Fungal like PCP or viral.. however bacterial cannot be ruled out recommend bronch, BAL sample to be sent for bacterial, fungal, AFB and viral cultures. also need BAL for PCP, urine legionella ag mycoplasma serology 06/09 : Blood cultures : WBC . epithelial cells and gram positive cocci in pairs present respiratory cultures ; Many growth : Normal Oropharyngeal Karina 06/11, Blood culture showed no growth prognosis guarded Thank you for consult Plan discussed with: Patient HOMERO VIGIL MD Jun 11, 2024 17:13
--- NOTE | 2024-06-11 23:01 | DVHPN2 ---
Progress Note - Dictate Date Seen: Jun 11, 2024 Medical Necessity Reason Pt with a Central, PICC or Fol: No Subjective Patient seen and examined at bedside. Breathing comfortably on room air. Overnight events reviewed. vital signs Vital Sign Date Time Temp Pulse Resp B/P (MAP) Pulse Ox O2 Delivery O2 Flow Rate FiO2 06/11/24 23:00 108 18 99 06/11/24 21:00 98.7 114/73 (87) 98.7 06/11/24 19:49 Nasal Cannula* 2 28 Total Intake and Output 06/10/24 06/10/24 06/11/24 15:00 23:00 07:00 Intake Total 300 ml 1460 ml 500 ml Balance 300 ml 1460 ml 500 ml medications Current Medications Medications Dose Ordered Sig/Sean Route Start Time Stop Time Status Last Admin Dose Admin Guaifenesin/ Dextromethorphan 10 ml Q4HP PRN PO 06/08/24 11:00 06/11/24 20:52 10 ML Ceftriaxone Sodium 50 ml @ 100 mls/hr DAILY@09 IV 06/09/24 09:00 06/11/24 08:55 100 MLS/HR Azithromycin 250 ml @ 125 mls/hr DAILY IV 06/09/24 10:00 06/11/24 09:28 125 MLS/HR Enoxaparin Sodium 40 mg DAILY SC 06/10/24 10:00 06/11/24 09:27 40 MG Albuterol 2.5 mg Q4HR NEB 06/11/24 11:45 06/11/24 22:51 2.5 MG objective Gen.: Patient lying in bed in no apparent distress. Breathing on room air. Head: Normocephalic, atraumatic. Eyes: EOMI/PERRLA. Ears: Normal hearing. Normal anatomy. Neck/trachea: Trachea midline, supple. Nose: Normal external anatomy. Mouth: Moist mucous membranes. Chest: Decreased air entry bilaterally. No wheezing or rhonchi. Cardiovascular: Positive S1, positive S2. Regular rate and rhythm. Abdomen: Positive bowel sounds in all 4 quadrants. Soft, non-tender, non- distended. : Deferred. Rectal: Deferred. Skin: Warm, dry. Intact. Extremities: 2+ radial pulses bilaterally. No lower extremity edema. Neuro: Awake, alert, oriented x3. No gross motor or sensory deficits. Cranial nerves II through XII intact. Gait not assessed. laboratory and microbiology Laboratory Tests 06/11/24 06:00 Test 06/11/24 06:00 Range/Units Serum Glucose 96 74-106 mg/dL Assessment/Plan Impression: Cough HIV (recent diagnosis) Anemia Elevated LFTs Atypical pneumonia Events: Remains on room air No respiratory distress. Continue antibiotics Antitussive for cough Obtain consent for bronchoscopy ID recommendations appreciated. Plan for bronchoscopy in the morning to obtain BAL for cultures. With full knowledge of the risks and benefits, patient agreed to proceed with procedure. Labs reviewed. Rest of plan as noted below Plan: Supplemental oxygen PRN Titrate to keep O2 sats above 92%. ID recommendations appreciated. Obtain consent for bronchoscopy with BAL to r/o opportunistic infection Continue antibiotics Follow up cultures Monitor renal function. Monitor electrolytes. Supplement as necessary. Monitor ins and outs. DVT prophylaxis. Prognosis: Poor given patient's multiple co-morbidities. Rest of plan per hospitalist and other consultants. Thank you Dr. Cruz, for allowing me to participate in this patient's care. Further recommendations will depend on the patient's clinical course. Please do not hesitate to contact me if you have any questions or concerns. This medical document was created using an electronic medical record system with Zafu dictation system. Although these documentations are being carefully reviewed, there may still be some phonetic and typographical changes. The errors are purely typographical, due to imperfection on the software program, and do not reflect any compromise in the patient's medical care. Plan discussed with: Patient, Other (RN, MD) ANGELIC OTOOLE MD Jun 11, 2024 23:01
[2024-06-12] VITALS (19 sets, daily range): BP systolic 96–118; BP diastolic 48–77; PULSE 98–131; RESP 14–65; TEMP 97.4–100.9; O2SAT 92–100
[2024-06-12 06:48] LABS: INR 1.06 (0.9-1.15); Partial Thromboplastin Time 29.3 SEC (24.5-34.5); Prothrombin Time 11.2 sec (9.3-11.8)
[2024-06-12 07:02] LABS: Hematocrit 34.9 % (41.0-53.0); Hemoglobin 11.7 g/dL (13.5-17.5); Mean Corpuscular Hemoglobin 27.7 pg (28.0-32.0); Mean Corpuscular Hgb Conc. 33.6 g/dL (32.0-36.0); Mean Corpuscular Volume 82.4 fL (80.0-100.0); Platelet Count (auto) 233 10^3/uL (140-450); Red Blood Cells 4.24 10^6/uL (4.5-5.90); White Blood Cell 6.4 10^3/uL (4.4-10.8)
[2024-06-12 07:22] LABS: Alanine Aminotransferase 29 U/L (7-40); Albumin 4.3 g/dL (3.2-4.8); Anion Gap 10 (5-15); Aspartate Aminotransferase 37 U/L (13-40); BUN/Creatinine Ratio 14.5 (10.0-20.0); Blood Urea Nitrogen 9 mg/dL (9-23); Calcium 9.8 mg/dL (8.7-10.4); Carbon Dioxide 23 mmol/L (20-31); Chloride 101 mmol/L (98-107); Glucose 102 mg/dL (74-106)
[2024-06-12 07:23] LABS: Bilirubin, Total 0.5 mg/dL (0.2-1.0)
[2024-06-12 07:24] LABS: Basophils % (manual) 0 (0.0-2.0); Blast Cells 0; Eosinophils % (manual) 0 (0-7); Metamyelocytes % 0; Monocytes % (manual) 0 (0-12); Myelocytes % 0; Promyelocytes % 0; Reactive Lymphocytes 0
[2024-06-12 07:26] LABS: Alkaline Phosphatase 123 U/L (46-116); Sodium 134 mmol/L (136-145); Total Protein 8.6 g/dL (5.7-8.2)
[2024-06-12] MEDS ORDERED: SODIUM CHLORIDE LOCK 10 ML ONE (08:31)
[2024-06-12] MEDS ORDERED: MIDAZOLAM HCL 2MG/2ML 2ml VIAL (1mg/ml) ONE (08:31)
[2024-06-12] MEDS ORDERED: LIDOCAINE 2%HCL (LOCAL ANESTH.) INJ 20ML MDV ONE (08:33)
[2024-06-12] MEDS ORDERED: EPINEPHrine HCL 1 MG/1 ML AMP ONE (08:33)
[2024-06-12] MEDS ORDERED: LIDOCAINE 2% JELLY 11ml (GLYDO) ONE (08:33)
[2024-06-12 09:01] LABS: Band Neutrophils % (manual) 2; Lymphocytes % (manual) 27 (10.0-50.0)
[2024-06-12 09:02] LABS: Platelet Estimate Adequate
[2024-06-12] MEDS: fentaNYL CITRATE 100 MCG/2 ML VL ONE (10:40)
[2024-06-12] MEDS: GLYCOPYRROLATE 0.2 MG/ML 1ML VIAL ONE (10:40)
[2024-06-12] MEDS: diphenhdrAMINE HCL 50 MG/1 ML VL ONE (10:40)
[2024-06-12] MEDS: MIDAZOLAM HCL 5 MG/ML-1ML VIAL ONE (10:40)
--- NOTE | 2024-06-12 11:35 | DVHNC2 ---
Procedure - Bronchoscopy procedure note: Indications: Obtain culture for PCP, AFB smear/culture, Viral, fungal, and gram stain and culture due pt being immunocompromised. 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 Versed 2 mg, Fentanyl 25 mcg, Glycopyrrolate 0.2 mg, Benadryl 50 mg IVP Complications: None Procedure: Patient medications and allergies reviewed. The risks and benefits of the procedure and the sedation options and risk were discussed with the patient's healthcare proxy. All questions were answered and informed consent was obtained. Patient identification and proposed procedure were verified prior to the procedure by the physician, and a nurse, and the respiratory therapist in patient's room. The heart rate, respiratory rate, oxygen saturations, blood pressure, adequacy of pulmonary ventilation, and response to care were monitored throughout the procedure. The physical status of the patient was reassessed after the procedure. After obtaining informed consent, the bronchoscope was introduced through the endotracheal tube and advanced into the trachea bronchial tree of both lungs. The procedure was accomplished without difficulty. The patient tolerated the procedure well. Findings: The trachea is in normal caliber. The bucky is sharp. The tracheobronchial tree of the right lung was examined to at least the first subsegmental level. The bronchial mucosa and anatomy in the right lung are normal. There are no endobronchial lesions. There were no secretions. Right middle lobe (RML) Bronchoalveolar lavage (BAL) obtained. RML BAL sent for gram stain and culture, viral culture, fungal culture, and AFB smear and culture and for silver stain to r/o pneumocystis jiroveci. The left upper lobe, lingula, and left lower lobe were examined to at least the first subsegmental level. Bronchial mucosa and anatomy in the left upper lobe and lingula are normal. There were no endobronchial lesions. There were no secretions. Lingula Bronchoalveolar lavage (BAL) obtained. Lingula BAL sent for gram stain and culture, viral culture, fungal culture, and AFB smear and culture and for silver stain to r/o pneumocystis jiroveci. There was no active bleeding at the completion of the procedure. Estimated blood loss: Less than 5 mL. Impression: RML BAL performed Lingula BAL performed Recommendation: Follow-up RML and lingula BAL results. Procedure codes: 72727, bronchoscopy, rigid and flexible, including fluoroscopic guidance, one performed; with bronchial endobronchial broncho-alveolar lavage, single or multiple sites ANGELIC OTOOLE MD Jun 12, 2024 11:35
--- NOTE | 2024-06-12 11:36 | DVHPN2 ---
Subjective Still complaining of shortness breaths; no recurrence of chills Reviewed: Care Plan, H&P, Labs, Medications, Previous Orders, Radiology, Other (Consultations) Changes from previous H/P or p: Changes Objective Vitals Vital Signs Date Time Temp Pulse Resp B/P (MAP) Pulse Ox O2 Delivery O2 Flow Rate FiO2 06/12/24 09:51 107 16 100 06/12/24 09:45 Nasal Cannula 2.0 06/12/24 09:45 28 06/12/24 09:06 98.4 112/74 (87) 98.4 Intake/Output Intake and Output 06/12/24 07:00 Intake Total 2310 ml Balance 2310 ml Intake Oral 2010 ml IV Total 300 ml # Voids 5 General Appearance: Alert, Oriented X3, Cooperative, mild distress HEENT: Atraumatic Lungs: Other (Bibasal wet crackles) Cardiovascular: Regular rate, Normal S1, Normal S2, No murmurs Abdomen: Normal bowel sounds, Soft, No tenderness, No hepatospenomegaly Extremities: No edema Neuro: Normal speech, Cranial nerves 3-12 NL Psych/Mental Status: Mental status NL, Mood NL Medications Current Medications Medications Dose Ordered Sig/Sean Route Start Time Stop Time Status Last Admin Dose Admin Guaifenesin/ Dextromethorphan 10 ml Q4HP PRN PO 06/08/24 11:00 06/11/24 20:52 10 ML Ceftriaxone Sodium 50 ml @ 100 mls/hr DAILY@09 IV 06/09/24 09:00 06/12/24 08:44 100 MLS/HR Azithromycin 250 ml @ 125 mls/hr DAILY IV 06/09/24 10:00 06/11/24 09:28 125 MLS/HR Enoxaparin Sodium 40 mg DAILY SC 06/10/24 10:00 06/12/24 08:45 40 MG Albuterol 2.5 mg Q4HR NEB 06/11/24 11:45 06/12/24 09:45 2.5 MG Laboratory Results Laboratory Tests 06/12/24 05:40 Chemistry Test 06/12/24 05:40 Albumin 4.3 g/dL (3.2-4.8) Calcium Level 9.8 mg/dL (8.7-10.4) Total Protein 8.6 g/dL (5.7-8.2) H Coagulation Test 06/11/24 13:10 06/12/24 05:40 D-Dimer, Quantitative 1.49 mg/L FEU (0.0-0.49) H Prothrombin Time 11.2 sec (9.3-11.8) Prothrombin Time INR 1.06 (0.9-1.15) Activated Partial Thromboplast Time 29.3 SEC (24.5-34.5) LFT Test 06/12/24 05:40 Alanine Aminotransferase (ALT) 29 U/L (7-40) Alkaline Phosphatase 123 U/L (46-116) H Aspartate Amino Transferase (AST) 37 U/L (13-40) Total Bilirubin 0.5 mg/dL (0.2-1.0) Microbiology Microbiology Date/Time Source Procedure Growth Status 06/09/24 05:00 Sputum Gram Stain - Final Complete 06/09/24 05:00 Sputum Respiratory Culture - Final Complete Labs and/or images reviewed: Labs reviewed by me, Image(s) reviewed by me Assessment/Plan Assessment/Plan A 28-year-old homosexual male patient; who was recently diagnosed with HIV, not on treatment; who presented with cough to [facility] and was transferred to [facility] for further evaluation and treatment. #Suspected sepsis in the setting of fever and tachycardia; due to suspected bilateral pneumonia; repeat blood cultures with no growth so far; continue current IV antibiotics; ID is following; normal lactic acid level; continue close monitoring #Acute hypoxic respiratory failure; status post bronchoscopy with BAL this morning by pulmonology; reviewed chest x-ray after bronchoscopy; continue oxygen therapy as indicated; continue nebulizer treatments; continue close monitoring #Productive cough due to bilateral pneumonia with the possibility of atypical infection including atypical tubercular mycobacterial fungal infections in the setting of recently diagnosed HIV; continue IV azithromycin and ceftriaxone; ordered and reviewed chest CT without IV contrast; reviewed initial results of sputum culture; pulmonology is following; ID is following: Recommended bronchoscopy with BAL; now on room air; to start oxygen therapy if indicated; to rule out TB; to keep in airborne isolation; continue monitoring #Recently diagnosed AIDS in the setting of homosexual male; reviewed resulted blood work by ID; ID is following; discussed using protection for sexual activities; continue monitoring #Normocytic anemia; unclear etiology but most likely inflammatory; no signs/symptoms of active bleeding; continue monitoring #Elevated liver enzymes; mild; unclear etiology; avoid hepatotoxic agents; continue monitoring #Hyponatremia; very mild; asymptomatic; unclear etiology; continue monitoring #Elevated D-dimer; reordered chest angiogram and also placed communication order; on DVT prophylaxis; continue close monitoring Late Entry. This medical document was created using an electronic medical record system with computerized dictation system. Although this document has been carefully reviewed, there might still be some phonetic and typographical errors. These areas are purely typographical due to imperfections of the software programs, and do not reflect any compromise in the patient's medical care. Plan discussed with: Patient, Other (Nurse) My Orders Orders - MADY BAEZ MD Procedure Category Date Status Time Chest Xray 1 View XY 06/11/24 Resulted 11:38 Albuterol Medneb PHA 06/11/24 In Process (Ventolin Medneb) 11:45 Blood Culture [place] 06/11/24 In Process 11:51 Oxygen By Nasal RT 06/11/24 Transmitted Cannula 11:[address] 06/11/24 Logged Contrast 14:52 Urinalysis LAB 06/12/24 Uncollected 02:30 Comprehensive LAB 06/13/24 Verified Metabolic Panel 04:00 Communication Order ORDERS 06/12/24 Transmitted 03:51 Date of Service: Jun 12, 2024 Billing Provider: MADY BAEZ MD Common Visit Codes: [id number] INP/OBS CARE(HIGH) MADY BAEZ MD Jun 12, 2024 11:36
--- NOTE | 2024-06-12 11:39 | DVHNC2 ---
Procedure - I administered moderate sedation throughout the 10 minutes of the procedure. An independent observer administered medications at my direction and monitored the patient's level of consciousness and physiological status throughout the procedure. CPT 06360 for the first 15 minutes. CONSCIOUS SEDATION PROCEDURE NOTE: Procedural Sedation Performed by: Dr Banda Indications: Bronchoscopy for BAL [place] Protocol: a time out was performed and the correct patient and site were verified Consent: The risks and benefits of monitored anesthesia care, including the risk of aspiration, deep sedation requiring airway management including possible intubation, nausea/vomiting and the risks of not performing the procedure, including severe pain and inability to complete the procedure, were all discussed with the patient. The alternatives of performing the procedure, including local anesthesia and IV analgesia, also discussed. The patient has a ride home available. ASA Class: II-mild systemic disease Mallampati Score: 2 Pre-anesthesia evaluation, including history, exam, and informed consent is documented in the note above. Monitoring: Continuous monitoring of heart rate, respiratory rate, pulse oximetry and ETCO2. Supplemental oxygen prior to and during procedure via nasal cannula. Resuscitation equipment available at the bedside during sedation. Intra-service start time: 1042 am Intra-service stop time: 1052 am The patient received Fentanyl 25 mcg, Versed 2 mg ivp, Glycopyrrolate 0.2 mg, and Benadryl 50mg IVP and dosages were recorded on the sedation form. The patient was recovered from the sedation without complication or incident. Patient returned to pre-sedation level of awareness. The monitoring was discontinued at this time. Post-anesthesia evaluation: Respiratory function, cardiovascular function, temperature, and mental status [did/did not] return to pre-anesthetic state. Pain was controlled. The patient did tolerate p.o. ANGELIC BANDA MD Jun 12, 2024 11:39
--- NOTE | 2024-06-12 15:56 | DVH ---
CHEST RADIOGRAPH Indication: s/p bronchoscopy with bronchoalveolar lavage, r/o ptx Technique: Single frontal view of the chest was obtained Comparison: XY CHEST XRAY 1 VIEW on DOS: 06/11/24 FINDINGS: Lines and Tubes: None Lungs: Diffuse bilateral perihilar peribronchial thickening. Findings may represent bronchitis. Pleura: No effusion. No pneumothorax. Cardiomediastinal contours: Unremarkable Bones: No acute osseous abnormality. IMPRESSION: 1. Diffuse bilateral perihilar peribronchial thickening. Findings may represent bronchitis. 2. Linear atelectasis both bases
--- NOTE | 2024-06-12 17:43 | DVHPN2 ---
Progress Note - Dictate Date Seen: Jun 12, 2024 Medical Necessity Reason Pt with a Central, PICC or Fol: No Subjective Patient reports shortness of breath and chills. He had bronchoscopy today. vital signs Vital Sign Date Time Temp Pulse Resp B/P (MAP) Pulse Ox O2 Delivery O2 Flow Rate FiO2 06/12/24 16:39 100.9 131 20 103/63 (76) 94 100.9 06/12/24 13:50 Nasal Cannula 2.0 06/12/24 13:50 28 Total Intake and Output 06/11/24 06/11/24 06/12/24 15:00 23:00 07:00 Intake Total 1460 ml 850 ml Balance 1460 ml 850 ml medications Current Medications Medications Dose Ordered Sig/Sean Route Start Time Stop Time Status Last Admin Dose Admin Guaifenesin/ Dextromethorphan 10 ml Q4HP PRN PO 06/08/24 11:00 06/11/24 20:52 10 ML Ceftriaxone Sodium 50 ml @ 100 mls/hr DAILY@09 IV 06/09/24 09:00 06/12/24 08:44 100 MLS/HR Azithromycin 250 ml @ 125 mls/hr DAILY IV 06/09/24 10:00 06/12/24 13:52 125 MLS/HR Enoxaparin Sodium 40 mg DAILY SC 06/10/24 10:00 06/12/24 08:45 40 MG Albuterol 2.5 mg Q4HR NEB 06/11/24 11:45 06/12/24 13:50 2.5 MG objective General Appearance: Alert, Oriented X3, Cooperative, No acute distress HEENT: Atraumatic Respiratory: Other (Scattered crackles; good air entry bilateral) Cardiovascular: Regular rate, Normal S1, Normal S2 Abdominal: Normal bowel sounds, Soft, No tenderness Neuro: Normal gait, Normal speech, Strength at 5/5 X4 ext, Normal tone, Sensation intact, Cranial nerves 3-12 NL, Reflexes 2+ Psych/Mental Status: Mental status NL, Mood NL laboratory and microbiology Laboratory Tests 06/12/24 05:40 Test 06/12/24 05:40 Range/Units Serum Glucose 102 74-106 mg/dL Assessment/Plan Patient is a 28-year-old male with AIDS multifocal pneumonia: atypical in nature Possible PCP pneumonia pulmonary nodule Homosexual elevated LFT anemia Recommendations Patient denies exposure to TB, travel to endemic country, being homeless or in alf. Denies IV drug use. 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 S/P bronchoscopy Cont Ceftriaxone and Azithromycin Will empirically start Bactrim for possible PCP pneumonia DD is MAC/ Fungal like PCP or viral.. however bacterial cannot be ruled out BAL sample to be sent for bacterial, fungal, AFB and viral cultures. also need BAL for PCP, urine legionella ag mycoplasma serology 06/09 : Blood cultures : WBC . epithelial cells and gram positive cocci in pairs present respiratory cultures ; Many growth : Normal Oropharyngeal Karina 06/11, Blood culture showed no growth 06/12 Chest x-ray showed Diffuse bilateral perihilar peribronchial thickening. Findings may represent bronchitis. Linear atelectasis both bases. prognosis guarded Thank you for consult Plan discussed with: Patient HOMERO VIGIL MD Jun 12, 2024 17:43
[2024-06-12] MEDS ORDERED: BACTRIM 5MG/KG Q8HR PER RX 0 ML IV SCH (20:30)
[2024-06-12 20:54] LABS: Urine Bacteria None Seen /hpf (None Seen)
[2024-06-12 21:07] LABS: Urine Blood Negative /uL (Negative); Urine Clarity Clear (Clear); Urine Color Yellow (Yellow); Urine Mucus FEW (None Seen); Urine Protein, UAD TRACE (Negative); Urine Squamous Epithelial Cell None Seen /hpf (<5); Urine Urobilinogen 3 mg/dL (Negative); Urine WBC 1 /hpf (0 - 3); Urine pH 6.5 (5.0-9.0)
[2024-06-12 21:09] LABS: Urine Specific Gravity > 1.035 (1.001-1.035)
[2024-06-12] MEDS: D5W 5% IV SCH (22:50)
[2024-06-12] MEDS: SULFAMETH TRIMETH IV SCH (22:50)
--- NOTE | 2024-06-12 23:39 | DVHPN2 ---
Progress Note - Dictate Date Seen: Jun 12, 2024 Medical Necessity Reason Pt with a Central, PICC or Fol: No Subjective Patient seen and examined at bedside. Breathing comfortably on room air. Overnight events reviewed. vital signs Vital Sign Date Time Temp Pulse Resp B/P (MAP) Pulse Ox O2 Delivery O2 Flow Rate FiO2 06/12/24 23:04 112 18 98 06/12/24 22:56 Nasal Cannula* 2 28 06/12/24 21:00 98.5 102/48 (66) 98.5 Total Intake and Output 06/11/24 06/11/24 06/12/24 15:00 23:00 07:00 Intake Total 1460 ml 850 ml Balance 1460 ml 850 ml medications Current Medications Medications Dose Ordered Sig/Sean Route Start Time Stop Time Status Last Admin Dose Admin Guaifenesin/ Dextromethorphan 10 ml Q4HP PRN PO 06/08/24 11:00 06/12/24 20:34 10 ML Ceftriaxone Sodium 50 ml @ 100 mls/hr DAILY@09 IV 06/09/24 09:00 06/12/24 08:44 100 MLS/HR Azithromycin 250 ml @ 125 mls/hr DAILY IV 06/09/24 10:00 06/12/24 13:52 125 MLS/HR Enoxaparin Sodium 40 mg DAILY SC 06/10/24 10:00 06/12/24 08:45 40 MG Albuterol 2.5 mg Q4HR NEB 06/11/24 11:45 06/12/24 22:56 2.5 MG Trimethoprim/ Sulfamethoxazole 0 ml @ 0 mls/hr PER PHARMACY IV 06/12/24 20:30 Trimethoprim/ Sulfamethoxazole 19 ml/Dextrose 519 ml @ 129.75 mls/ hr Q8HR IV 06/12/24 22:00 06/12/24 22:50 129.75 MLS/HR objective Gen.: Patient lying in bed in no apparent distress. Breathing on room air. Head: Normocephalic, atraumatic. Eyes: EOMI/PERRLA. Ears: Normal hearing. Normal anatomy. Neck/trachea: Trachea midline, supple. Nose: Normal external anatomy. Mouth: Moist mucous membranes. Chest: Decreased air entry bilaterally. No wheezing or rhonchi. Cardiovascular: Positive S1, positive S2. Regular rate and rhythm. Abdomen: Positive bowel sounds in all 4 quadrants. Soft, non-tender, non- distended. : Deferred. Rectal: Deferred. Skin: Warm, dry. Intact. Extremities: 2+ radial pulses bilaterally. No lower extremity edema. Neuro: Awake, alert, oriented x3. No gross motor or sensory deficits. Cranial nerves II through XII intact. Gait not assessed. laboratory and microbiology Laboratory Tests 06/12/24 05:40 Test 06/12/24 05:40 Range/Units Serum Glucose 102 74-106 mg/dL Assessment/Plan Impression: Cough HIV (recent diagnosis) Anemia Elevated LFTs Atypical pneumonia Events: Remains on room air No respiratory distress. Continue antibiotics Antitussive for cough S/p bronchoscopy with bronchoalveolar lavage of RML + lingula Fluid sent for Gram stain and cultures - fungal, viral, AFB smear and culture and silver stain Follow up results. ID recommendations appreciated. Labs reviewed. Rest of plan as noted below Plan: Supplemental oxygen PRN Titrate to keep O2 sats above 92%. ID recommendations appreciated. S/p bronchoscopy with bronchoalveolar lavage of RML + lingula Continue antibiotics Follow up cultures Monitor renal function. Monitor electrolytes. Supplement as necessary. Monitor ins and outs. DVT prophylaxis. Prognosis: Poor given patient's multiple co-morbidities. Rest of plan per hospitalist and other consultants. Thank you Dr. Cruz, for allowing me to participate in this patient's care. Further recommendations will depend on the patient's clinical course. Please do not hesitate to contact me if you have any questions or concerns. This medical document was created using an electronic medical record system with [employer] dictation system. Although these documentations are being carefully reviewed, there may still be some phonetic and typographical changes. The errors are purely typographical, due to imperfection on the software program, and do not reflect any compromise in the patient's medical care. Plan discussed with: Patient, Other (AALIYAH Bruner) ANGELIC OTOOLE MD Jun 12, 2024 23:39
[2024-06-13] VITALS (19 sets, daily range): BP systolic 94–138; BP diastolic 46–71; PULSE 96–118; RESP 16–22; TEMP 97.8–98.9; O2SAT 93–99
[2024-06-13 06:08] LABS: Hematocrit 30.7 % (41.0-53.0); Hemoglobin 10.3 g/dL (13.5-17.5); Mean Corpuscular Hemoglobin 27.8 pg (28.0-32.0); Mean Corpuscular Hgb Conc. 33.5 g/dL (32.0-36.0); Mean Corpuscular Volume 82.8 fL (80.0-100.0); Platelet Count (auto) 180 10^3/uL (140-450); Red Blood Cells 3.71 10^6/uL (4.5-5.90); Red Cell Distribution Width 15.6 % (11.8-14.3); White Blood Cell 4.4 10^3/uL (4.4-10.8)
[2024-06-13 06:24] LABS: Basophils % (manual) 0 (0.0-2.0); Blast Cells 0; Metamyelocytes % 0; Myelocytes % 0; Promyelocytes % 0; Reactive Lymphocytes 0
[2024-06-13 06:28] LABS: Alanine Aminotransferase 25 U/L (7-40); Albumin 3.7 g/dL (3.2-4.8); Anion Gap 8 (5-15); Aspartate Aminotransferase 39 U/L (13-40); BUN/Creatinine Ratio 10.2 (10.0-20.0); Bilirubin, Total 0.3 mg/dL (0.2-1.0); Calcium 9.1 mg/dL (8.7-10.4); Carbon Dioxide 25 mmol/L (20-31); Chloride 100 mmol/L (98-107); Glucose 93 mg/dL (74-106); Potassium 3.7 mmol/L (3.5-5.1)
[2024-06-13 06:29] LABS: Total Protein 7.7 g/dL (5.7-8.2)
[2024-06-13 06:30] LABS: Alkaline Phosphatase 118 U/L (46-116); Blood Urea Nitrogen 6 mg/dL (9-23); Sodium 133 mmol/L (136-145)
--- NOTE | 2024-06-13 07:32 | DVH ---
CLINICAL INFORMATION: 28 years old, Male; Elevated D-dimer. TECHNIQUE: Axial CTA images of the chest were obtained after the uneventful administration of 100 mL of Omnipaque 350 IV contrast. Coronal and sagittal reformatted images and MIP images were obtained, reviewed, and stored. One or more of the following dose reduction techniques were used: Automated exp osure control. Adjustment of mA and/or kV according to patient size. CTDIvol = 9.16, 11.83 mGy DLP = 336.91 mGy-cm COMPARISON: Chest radiograph dated 06/12/2024. Prior CT chest dated 06/08/2024. FINDINGS: Pulmonary arteries: Limited evaluation for pulmonary embolism due to extensive respiratory motion art ifact. No central or lobar pulmonary embolism visualized. Can not exclude segmental or subsegmental p ulmonary emboli. Aorta: No aneurysm or dissection. Cardiac: Heart size is of the upper limits of normal. Mediastinum/marine: No mass or adenopathy. Lungs: Respiratory motion artifact limits evaluation. Worsening ground-glass opacities and interstiti al opacities bilaterally. Patchy airspace opacities opacities in the lower lobes also noted. Focal pu lmonary nodule in the superior segment of the left lower lobe measuring up to 2 cm, unchanged compare d to the recent exam. Additional nodule in the left lower lobe seen on the prior exam may be obscured by respiratory motion. No pneumothorax or pleural effusion. Chest wall: Grossly stable appearing mildly prominent bilateral axillary lymph nodes measuring up to 1 cm in short axis dimension. Upper abdomen: Hepatic steatosis. Left adrenal nodule measuring up to 1.8 cm in greatest dimension ap pears stable. Bones: No fracture or suspicious intraosseous lesions. IMPRESSION: 1. Respiratory motion artifact limits evaluation. 2. No central or lobar pulmonary embolism visualized. Can not exclude segmental or subsegmental pulmo nary emboli due to extensive respiratory motion artifact. 3. Worsening ground-glass opacities and interstitial opacities bilaterally, may be infectious or infl ammatory in nature or due to pulmonary edema. 4. No significant change in size in the 2 cm nodule/ mass in the superior segment of the right lower lobe compared to the recent exam. Additional nodule seen on the prior exam is not visualized, likely obscured by respiratory motion artifact. 5. Stable indeterminate left adrenal nodule. Nonemergent MRI adrenal mass protocol could be obtained to further characterize. 6. Stable nonspecific mildly prominent bilateral axillary lymph nodes, most likely reactive. Correlat e with clinical findings. 7. Additional findings as detailed above.
[2024-06-13 08:52] LABS: Band Neutrophils % (manual) 4; Eosinophils % (manual) 1 (0-7); Lymphocytes % (manual) 17 (10.0-50.0); Monocytes % (manual) 12 (0-12); Platelet Estimate Adequate
--- NOTE | 2024-06-13 15:53 | DVHPN2 ---
Subjective patient in bed. Calm. No new Issues. Reviewed: Care Plan, H&P, Labs, Medications, Previous Orders, Radiology, Other (Consultations) Changes from previous H/P or p: No Changes General: No Night Sweats, No Fatigue Neurological: No Weakness, No Numbness Cardiovascular: No Chest Pain Respiratory: Cough, Shortness of breath Gastrointestinal: No Nausea Musculoskeletal: No leg pain Endocrine: No Cold Intolerance Hematology: No Abnormal Bleeding Objective Vitals Vital Signs Date Time Temp Pulse Resp B/P (MAP) Pulse Ox O2 Delivery O2 Flow Rate FiO2 06/13/24 14:11 118 18 99 06/13/24 14:05 Nasal Cannula 2.0 06/13/24 14:05 28 06/13/24 12:45 97.8 96/52 (67) 97.8 Intake/Output Intake and Output 06/13/24 07:00 Intake Total 2219 ml Balance 2219 ml Intake Oral 1400 ml IV Total 819 ml # Voids 3 General Appearance: Alert, Oriented X3, Cooperative; No mild distress HEENT: Atraumatic Lungs: Other (Bibasal crackles) Cardiovascular: Regular rate, Normal S1, Normal S2, No murmurs Abdomen: Normal bowel sounds, Soft, No tenderness, No hepatospenomegaly Extremities: No edema Neuro: Normal speech, Sensation intact Psych/Mental Status: Mental status NL, Mood NL Medications Current Medications Medications Dose Ordered Sig/Sean Route Start Time Stop Time Status Last Admin Dose Admin Guaifenesin/ Dextromethorphan 10 ml Q4HP PRN PO 06/08/24 11:00 06/12/24 20:34 10 ML Ceftriaxone Sodium 50 ml @ 100 mls/hr DAILY@09 IV 06/09/24 09:00 06/13/24 09:02 100 MLS/HR Azithromycin 250 ml @ 125 mls/hr DAILY IV 06/09/24 10:00 06/13/24 12:01 125 MLS/HR Enoxaparin Sodium 40 mg DAILY SC 06/10/24 10:00 06/13/24 09:03 40 MG Albuterol 2.5 mg Q4HR NEB 06/11/24 11:45 06/13/24 14:05 2.5 MG Trimethoprim/ Sulfamethoxazole 0 ml @ 0 mls/hr PER PHARMACY IV 06/12/24 20:30 Trimethoprim/ Sulfamethoxazole 19 ml/Dextrose 519 ml @ 129.75 mls/ hr Q8HR IV 06/12/24 22:00 06/13/24 14:36 129.75 MLS/HR Laboratory Results Laboratory Tests 06/13/24 05:34 Chemistry Test 06/13/24 05:34 Albumin 3.7 g/dL (3.2-4.8) Calcium Level 9.1 mg/dL (8.7-10.4) Total Protein 7.7 g/dL (5.7-8.2) LFT Test 06/13/24 05:34 Alanine Aminotransferase (ALT) 25 U/L (7-40) Alkaline Phosphatase 118 U/L (46-116) H Aspartate Amino Transferase (AST) 39 U/L (13-40) Total Bilirubin 0.3 mg/dL (0.2-1.0) Urinalysis Test 06/12/24 20:52 Urine Color Yellow (Yellow) Urine Clarity Clear (Clear) Urine pH 6.5 (5.0-9.0) Urine Specific [place] > 1.035 (1.001-1.035) Urine Protein Trace (Negative) H Urine Ketones Trace (Negative) Urine Blood Negative /uL (Negative) Urine Nitrite Negative (Negative) Urine Bilirubin Negative (Negative) Urine Urobilinogen 3 mg/dL (Negative) H Urine Leukocyte Esterase Negative /uL (Negative) Urine RBC <1 /hpf (0 - 3) Urine WBC 1 /hpf (0 - 3) Urine Squamous Epithelial Cells None seen /hpf (<5) Urine Bacteria None seen /hpf (None Seen) Urine Mucus Few (None Seen) Urine Glucose Normal mg/dL (Normal) Microbiology Microbiology Date/Time Source Procedure Growth Status 06/12/24 10:45 Other Pending Resulted 06/12/24 10:45 Other Pending Resulted 06/12/24 10:45 Other Pending Resulted 06/12/24 10:45 Other Pending Resulted 06/12/24 10:45 Other - Final See Separate Report... Resulted 06/12/24 10:45 Bronchial Washings AFB Broth Culture Pending Resulted 06/12/24 10:45 Bronchial Washings - Final Resulted 06/12/24 10:45 Bronchial Washings - Final Resulted 06/12/24 10:45 Bronchial Washings Acid Fast Bacilli Culture Pending Resulted 06/11/24 13:10 Blood Blood Culture - Preliminary NO GROWTH AFTER 48 HOURS OF INCUBATION. Resulted Assessment/Plan Assessment/Plan #Suspected sepsis in the setting of fever and tachycardia; due to suspected bilateral pneumonia; repeat blood cultures with no growth so far; continue ; ID is following; - Cont ABX - F/u TB #Acute hypoxic respiratory failure; status post bronchoscopy with BAL this morning by pulmonology; reviewed chest x-ray after bronchoscopy; continue oxygen therapy as indicated; continue nebulizer treatments; continue close monitoring #Productive cough due to bilateral pneumonia with the possibility of atypical infection including atypical tubercular mycobacterial fungal infections in the setting of recently diagnosed HIV;; ordered and reviewed chest CT without IV contrast; reviewed initial results of sputum culture; pulmonology is following; ID is following: Recommended bronchoscopy with BAL; now on room air; to start oxygen therapy if indicated; to rule out TB; to keep in airborne isolation; continue monitoring - Cont Bactrm, Azitro and Ceft. #HIV - Recently diagnosed homosexual male; reviewed resulted blood work by ID; ID is following; discussed using protection for sexual activities; - ID consulted. #Normocytic anemia; unclear etiology but most likely inflammatory; no signs/symptoms of active bleeding; continue monitoring #Hyponatremia; very mild; asymptomatic; unclear etiology; continue monitoring #Elevated D-dimer; reordered chest angiogram and also placed communication order; on DVT prophylaxis; continue close monitoring Plan discussed with: Patient Date of Service: Jun 13, 2024 Billing Provider: FABY FLANAGAN MD Common Visit Codes: [id number] INP/OBS CARE(HIGH) FABY FLANAGAN MD Jun 13, 2024 15:53
--- NOTE | 2024-06-13 20:16 | DVHPN2 ---
Progress Note - Dictate Date Seen: Jun 13, 2024 Medical Necessity Reason Pt with a Central, PICC or Fol: No Subjective Patient seen and examined at bedside. Breathing comfortably on room air. Overnight events reviewed. vital signs Vital Sign Date Time Temp Pulse Resp B/P (MAP) Pulse Ox O2 Delivery O2 Flow Rate FiO2 06/13/24 18:40 113 22 96 06/13/24 18:30 Nasal Cannula 2.0 06/13/24 18:30 28 06/13/24 16:38 97.9 138/71 (93) 97.9 Total Intake and Output 06/12/24 06/12/24 06/13/24 15:00 23:00 07:00 Intake Total 50 ml 950 ml 1219 ml Balance 50 ml 950 ml 1219 ml medications Current Medications Medications Dose Ordered Sig/Sean Route Start Time Stop Time Status Last Admin Dose Admin Guaifenesin/ Dextromethorphan 10 ml Q4HP PRN PO 06/08/24 11:00 06/12/24 20:34 10 ML Ceftriaxone Sodium 50 ml @ 100 mls/hr DAILY@09 IV 06/09/24 09:00 06/13/24 09:02 100 MLS/HR Azithromycin 250 ml @ 125 mls/hr DAILY IV 06/09/24 10:00 06/13/24 12:01 125 MLS/HR Enoxaparin Sodium 40 mg DAILY SC 06/10/24 10:00 06/13/24 09:03 40 MG Albuterol 2.5 mg Q4HR NEB 06/11/24 11:45 06/13/24 18:30 2.5 MG Trimethoprim/ Sulfamethoxazole 0 ml @ 0 mls/hr PER PHARMACY IV 06/12/24 20:30 Trimethoprim/ Sulfamethoxazole 19 ml/Dextrose 519 ml @ 129.75 mls/ hr Q8HR IV 06/12/24 22:00 06/13/24 14:36 129.75 MLS/HR objective Gen.: Patient lying in bed in no apparent distress. Breathing on room air. Head: Normocephalic, atraumatic. Eyes: EOMI/PERRLA. Ears: Normal hearing. Normal anatomy. Neck/trachea: Trachea midline, supple. Nose: Normal external anatomy. Mouth: Moist mucous membranes. Chest: Decreased air entry bilaterally. No wheezing or rhonchi. Cardiovascular: Positive S1, positive S2. Regular rate and rhythm. Abdomen: Positive bowel sounds in all 4 quadrants. Soft, non-tender, non- distended. : Deferred. Rectal: Deferred. Skin: Warm, dry. Intact. Extremities: 2+ radial pulses bilaterally. No lower extremity edema. Neuro: Awake, alert, oriented x3. No gross motor or sensory deficits. Cranial nerves II through XII intact. Gait not assessed. laboratory and microbiology Laboratory Tests 06/13/24 05:34 Test 06/13/24 05:34 Range/Units Serum Glucose 93 74-106 mg/dL Assessment/Plan Impression: Cough HIV (recent diagnosis) Anemia Elevated LFTs Atypical pneumonia Events: Remains on room air No respiratory distress. Continue antibiotics Antitussive for cough Awaiting cultures ID recommendations appreciated. Labs reviewed. Rest of plan as noted below Plan: Supplemental oxygen PRN Titrate to keep O2 sats above 92%. S/p bronchoscopy on 06/12/24 with bronchoalveolar lavage of RML + lingula Fluid sent for Gram stain and cultures - fungal, viral, AFB smear and culture and silver stain Follow up results. Continue antibiotics Follow up cultures Monitor renal function. Monitor electrolytes. Supplement as necessary. Monitor ins and outs. DVT prophylaxis. Prognosis: Poor given patient's multiple co-morbidities. Rest of plan per hospitalist and other consultants. Thank you Dr. Cruz, for allowing me to participate in this patient's care. Further recommendations will depend on the patient's clinical course. Please do not hesitate to contact me if you have any questions or concerns. This medical document was created using an electronic medical record system with [employer] dictation system. Although these documentations are being carefully reviewed, there may still be some phonetic and typographical changes. The errors are purely typographical, due to imperfection on the software program, and do not reflect any compromise in the patient's medical care. Dietary Evaluation Review Comments: Encourage and monitor PO intake to meet 75% of his needs Expected Outcomes/Goals: free from symptoms, gradual weight gain. Plan discussed with: Patient, Other (AALIYAH Bruner) ANGELIC OTOOLE MD Jun 13, 2024 20:16
--- NOTE | 2024-06-13 21:10 | DVHPN2 ---
Progress Note - Dictate Date Seen: Jun 13, 2024 Medical Necessity Reason Pt with a Central, PICC or Fol: No Subjective No new acute complaints noted at this time. He had bronchoscopy yesterday. vital signs Vital Sign Date Time Temp Pulse Resp B/P (MAP) Pulse Ox O2 Delivery O2 Flow Rate FiO2 06/13/24 18:40 113 22 96 06/13/24 18:30 Nasal Cannula 2.0 06/13/24 18:30 28 06/13/24 16:38 97.9 138/71 (93) 97.9 Total Intake and Output 06/12/24 06/12/24 06/13/24 15:00 23:00 07:00 Intake Total 50 ml 950 ml 1219 ml Balance 50 ml 950 ml 1219 ml medications Current Medications Medications Dose Ordered Sig/Sean Route Start Time Stop Time Status Last Admin Dose Admin Guaifenesin/ Dextromethorphan 10 ml Q4HP PRN PO 06/08/24 11:00 06/12/24 20:34 10 ML Ceftriaxone Sodium 50 ml @ 100 mls/hr DAILY@09 IV 06/09/24 09:00 06/13/24 09:02 100 MLS/HR Azithromycin 250 ml @ 125 mls/hr DAILY IV 06/09/24 10:00 06/13/24 12:01 125 MLS/HR Enoxaparin Sodium 40 mg DAILY SC 06/10/24 10:00 06/13/24 09:03 40 MG Albuterol 2.5 mg Q4HR NEB 06/11/24 11:45 06/13/24 18:30 2.5 MG Trimethoprim/ Sulfamethoxazole 0 ml @ 0 mls/hr PER PHARMACY IV 06/12/24 20:30 Trimethoprim/ Sulfamethoxazole 19 ml/Dextrose 519 ml @ 129.75 mls/ hr Q8HR IV 06/12/24 22:00 06/13/24 14:36 129.75 MLS/HR objective General Appearance: Alert, Oriented X3, Cooperative, No acute distress HEENT: Atraumatic Respiratory: Other (Scattered crackles; good air entry bilateral) Cardiovascular: Regular rate, Normal S1, Normal S2 Abdominal: Normal bowel sounds, Soft, No tenderness Neuro: Normal gait, Normal speech, Strength at 5/5 X4 ext, Normal tone, Sensation intact, Cranial nerves 3-12 NL, Reflexes 2+ Psych/Mental Status: Mental status NL, Mood NL laboratory and microbiology Laboratory Tests 06/13/24 05:34 Test 06/13/24 05:34 Range/Units Serum Glucose 93 74-106 mg/dL Assessment/Plan Patient is a 28-year-old male with AIDS multifocal pneumonia: atypical in nature Possible PCP pneumonia pulmonary nodule Homosexual elevated LFT anemia Recommendations Patient denies exposure to TB, travel to endemic country, being homeless or in fpc. Denies IV drug use. 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 S/P bronchoscopy Cont IV Ceftriaxone and Azithromycin Continue IV Bactrim 519 ml @ 129.75 q8h HIV-1 RNA [PCR]: [id number];need to start ART therapy after AFB cultures are ruled out. DD is MAC/ Fungal like PCP or viral.. however bacterial cannot be ruled out BAL sample to be sent for bacterial, fungal, AFB and viral cultures. also need BAL for PCP, urine legionella ag mycoplasma serology 06/09 : sputum cultures : WBC . epithelial cells and gram positive cocci in pairs present respiratory cultures ; Many growth : Normal Oropharyngeal Karina 06/11, Blood culture showed no growth 06/12 Chest x-ray showed Diffuse bilateral perihilar peribronchial thickening. Findings may represent bronchitis. Linear atelectasis both bases. prognosis guarded Thank you for consult Dietary Evaluation Review Comments: Encourage and monitor PO intake to meet 75% of his needs Expected Outcomes/Goals: free from symptoms, gradual weight gain. Plan discussed with: Patient, Other HOMERO VIGIL MD Jun 13, 2024 21:10
[2024-06-14] VITALS (21 sets, daily range): BP systolic 90–144; BP diastolic 49–68; PULSE 100–120; RESP 17–22; TEMP 97.7–98.2; O2SAT 94–100
[2024-06-14 06:13] LABS: Hematocrit 31.1 % (41.0-53.0); Hemoglobin 10.3 g/dL (13.5-17.5); Mean Corpuscular Hemoglobin 27.5 pg (28.0-32.0); Mean Corpuscular Hgb Conc. 33.2 g/dL (32.0-36.0); Mean Corpuscular Volume 82.7 fL (80.0-100.0); Platelet Count (auto) 187 10^3/uL (140-450); Red Blood Cells 3.77 10^6/uL (4.5-5.90); Red Cell Distribution Width 15.8 % (11.8-14.3); White Blood Cell 3.8 10^3/uL (4.4-10.8)
[2024-06-14 06:35] LABS: Basophils % (manual) 0 (0.0-2.0); Blast Cells 0; Metamyelocytes % 0; Myelocytes % 0; Promyelocytes % 0; Reactive Lymphocytes 0
[2024-06-14 08:06] LABS: HIV 1 Antibody Reactive (Non Reactive); HIV 2 Antibody Non Reactive (Non Reactive); INTERPRETATION HIV-1 Positive (.)
[2024-06-14 08:59] LABS: Anisocytosis Slight; Band Neutrophils % (manual) 2; Eosinophils % (manual) 1 (0-7); Lymphocytes % (manual) 19 (10.0-50.0); Monocytes % (manual) 12 (0-12); Platelet Estimate Adequate
--- NOTE | 2024-06-14 10:15 | DVHPN2 ---
Subjective patient in bed. Calm. has questions about his diagnosis. Reviewed: Care Plan, H&P, Labs, Medications, Previous Orders, Radiology, Other (Consultations) Changes from previous H/P or p: No Changes General: No Night Sweats, No Fatigue Neurological: No Weakness, No Numbness Cardiovascular: No Chest Pain Respiratory: Cough, Shortness of breath Gastrointestinal: No Nausea Musculoskeletal: No leg pain Endocrine: No Cold Intolerance Hematology: No Abnormal Bleeding Objective Vitals Vital Signs Date Time Temp Pulse Resp B/P (MAP) Pulse Ox O2 Delivery O2 Flow Rate FiO2 06/14/24 08:46 97.7 100 18 140/68 (92) 100 97.7 06/14/24 08:00 Nasal Cannula* 2 28 Intake/Output Intake and Output 06/14/24 07:00 Intake Total 3054 ml Output Total 2450 ml Balance 604 ml Intake Oral 1716 ml IV Total 1338 ml Output Urine Total 2450 ml # Bowel Movements 1 General Appearance: Alert, Oriented X3, Cooperative HEENT: Atraumatic Lungs: Other Cardiovascular: Regular rate, Normal S1, Normal S2, No murmurs Abdomen: Normal bowel sounds, Soft, No tenderness, No hepatospenomegaly Extremities: No edema Neuro: Normal speech, Sensation intact Psych/Mental Status: Mental status NL, Mood NL Medications Current Medications Medications Dose Ordered Sig/Sean Route Start Time Stop Time Status Last Admin Dose Admin Guaifenesin/ Dextromethorphan 10 ml Q4HP PRN PO 06/08/24 11:00 06/12/24 20:34 10 ML Ceftriaxone Sodium 50 ml @ 100 mls/hr DAILY@09 IV 06/09/24 09:00 06/14/24 09:50 100 MLS/HR Azithromycin 250 ml @ 125 mls/hr DAILY IV 06/09/24 10:00 06/13/24 12:01 125 MLS/HR Enoxaparin Sodium 40 mg DAILY SC 06/10/24 10:00 06/14/24 09:50 40 MG Albuterol 2.5 mg Q4HR NEB 06/11/24 11:45 06/14/24 06:06 2.5 MG Trimethoprim/ Sulfamethoxazole 0 ml @ 0 mls/hr PER PHARMACY IV 06/12/24 20:30 Trimethoprim/ Sulfamethoxazole 19 ml/Dextrose 519 ml @ 129.75 mls/ hr Q8HR IV 06/12/24 22:00 06/14/24 05:45 129.75 MLS/HR Laboratory Results Laboratory Tests 06/13/24 05:34 06/14/24 05:26 Urinalysis Test 06/12/24 20:52 Urine Color Yellow (Yellow) Urine Clarity Clear (Clear) Urine pH 6.5 (5.0-9.0) Urine Specific [place] > 1.035 (1.001-1.035) Urine Protein Trace (Negative) H Urine Ketones Trace (Negative) Urine Blood Negative /uL (Negative) Urine Nitrite Negative (Negative) Urine Bilirubin Negative (Negative) Urine Urobilinogen 3 mg/dL (Negative) H Urine Leukocyte Esterase Negative /uL (Negative) Urine RBC <1 /hpf (0 - 3) Urine WBC 1 /hpf (0 - 3) Urine Squamous Epithelial Cells None seen /hpf (<5) Urine Bacteria None seen /hpf (None Seen) Urine Mucus Few (None Seen) Urine Glucose Normal mg/dL (Normal) Microbiology Microbiology Date/Time Source Procedure Growth Status 06/13/24 04:50 Sputum Gram Stain Pending Resulted 06/13/24 04:50 Sputum Respiratory Culture - Preliminary Resulted 06/12/24 10:45 Other Pending Resulted 06/12/24 10:45 Other Pending Resulted 06/12/24 10:45 Other Pending Resulted 06/12/24 10:45 Other Pending Resulted 06/12/24 10:45 Other - Final See Separate Report... Resulted 06/11/24 13:10 Blood Blood Culture - Preliminary NO GROWTH AFTER 48 HOURS OF INCUBATION. Resulted Assessment/Plan Assessment/Plan #Suspected sepsis in the setting of fever and tachycardia and HIV and Pneumonia; repeat blood cultures with no growth so far; continue DDX includes bacterial, viral and fungal ID is following; - Cont ABX - F/u TB , legionella, mycoplasma #Acute hypoxic respiratory failure; status post bronchoscopy with BAL this morning by pulmonology; continue oxygen therapy as indicated; continue nebulizer treatments; continue close monitoring - as above. #Productive cough due to bilateral pneumonia with the possibility of atypical infection including atypical tubercular mycobacterial fungal infections in the setting of recently diagnosed HIV;; ordered and reviewed chest CT without IV contrast; reviewed initial results of sputum culture; pulmonology is following; ID is following: Recommended bronchoscopy with BAL; now on room air; to start oxygen therapy if indicated; to rule out TB; to keep in airborne isolation; continue monitoring - Cont Bactrm, Azitro and Ceft. #HIV - Recently diagnosed homosexual male; reviewed resulted blood work by ID; ID is following; discussed using protection for sexual activities; - ID consulted. - Will need to establish care outpatient for ART therapy. #Normocytic anemia; unclear etiology but most likely inflammatory; no signs/symptoms of active bleeding; continue monitoring - rectic and smera. #Hyponatremia; very mild; asymptomatic; unclear etiology; continue monitoring Plan discussed with: Patient My Orders Orders - FABY FLANAGAN MD Procedure Category Date Status Time Reticulocyte Count LAB 06/14/24 In Process 09:55 [place] Stain Slide LAB 06/14/24 In Process 09:55 Date of Service: Jun 14, 2024 Billing Provider: FABY FLANAGAN MD Common Visit Codes: [id number] INP/OBS CARE(HIGH) FABY FLANAGAN MD Jun 14, 2024 10:15
[2024-06-14 11:09] LABS: Wright Stain Ready for Review
[2024-06-14] MEDS: DOCUSATE SOD 100 MG CAP PO PRN (15:50)
--- NOTE | 2024-06-14 17:50 | DVHPN2 ---
Progress Note - Dictate Date Seen: Jun 14, 2024 Medical Necessity Reason Pt with a Central, PICC or Fol: No Subjective No new acute complaints noted at this time. Bactrim tolerating He had bronchoscopy done on 06/12. vital signs Vital Sign Date Time Temp Pulse Resp B/P (MAP) Pulse Ox O2 Delivery O2 Flow Rate FiO2 06/14/24 16:49 98.0 102 17 144/62 (89) 98 98.0 06/14/24 14:53 2.0 28 06/14/24 08:00 Nasal Cannula* Total Intake and Output 06/13/24 06/13/24 06/14/24 15:00 23:00 07:00 Intake Total 819 ml 1435 ml 800 ml Output Total 1350 ml 1100 ml Balance 819 ml 85 ml -300 ml medications Current Medications Medications Dose Ordered Sig/Sean Route Start Time Stop Time Status Last Admin Dose Admin Guaifenesin/ Dextromethorphan 10 ml Q4HP PRN PO 06/08/24 11:00 06/12/24 20:34 10 ML Ceftriaxone Sodium 50 ml @ 100 mls/hr DAILY@09 IV 06/09/24 09:00 06/14/24 09:50 100 MLS/HR Azithromycin 250 ml @ 125 mls/hr DAILY IV 06/09/24 10:00 06/14/24 10:41 125 MLS/HR Enoxaparin Sodium 40 mg DAILY SC 06/10/24 10:00 06/14/24 09:50 40 MG Albuterol 2.5 mg Q4HR NEB 06/11/24 11:45 06/14/24 14:15 2.5 MG Trimethoprim/ Sulfamethoxazole 0 ml @ 0 mls/hr PER PHARMACY IV 06/12/24 20:30 Trimethoprim/ Sulfamethoxazole 19 ml/Dextrose 519 ml @ 129.75 mls/ hr Q8HR IV 06/12/24 22:00 06/14/24 13:18 129.75 MLS/HR Docusate Sodium 100 mg BIDPRN PRN PO 06/14/24 12:45 objective General Appearance: Alert, Oriented X3, Cooperative, No acute distress HEENT: Atraumatic Respiratory: Other (Scattered crackles; good air entry bilateral) Cardiovascular: Regular rate, Normal S1, Normal S2 Abdominal: Normal bowel sounds, Soft, No tenderness Neuro: Normal gait, Normal speech, Strength at 5/5 X4 ext, Normal tone, Sensation intact, Cranial nerves 3-12 NL, Reflexes 2+ Psych/Mental Status: Mental status NL, Mood NL laboratory and microbiology Laboratory Tests 06/14/24 05:26 06/13/24 05:34 Test 06/13/24 05:34 Range/Units Serum Glucose 93 74-106 mg/dL Assessment/Plan Patient is a 28-year-old male with AIDS multifocal pneumonia: atypical in nature Possible PCP pneumonia pulmonary nodule Homosexual elevated LFT anemia Recommendations Patient denies exposure to TB, travel to endemic country, being homeless or in [place] [facility]. Denies IV drug use. 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 S/P bronchoscopy will send Quantiferon gold, Discont Ceftriaxone and Azithromycin Continue IV Bactrim 519 ml @ 129.75 q8h; will switch to oral to complete 21 days course.. as the lab sent to outside labs will take time. HIV-1 RNA [PCR]: [id number]: needs ART therapy however will wait for cultures of AFB; follow up as outpt BAL sample to be sent for bacterial, fungal, AFB and viral cultures. also need BAL for PCP, urine legionella ag mycoplasma serology need to follow all these labs prognosis guarded Thank you for consult Dietary Evaluation Review Comments: Encourage and monitor PO intake to meet 75% of his needs Expected Outcomes/Goals: free from symptoms, gradual weight gain. Plan discussed with: Other HOMERO VIGIL MD Jun 14, 2024 17:50
[2024-06-14 20:06] LABS: Legionella pneumophila Abs Non Reactive (Non Reactive); Mycoplasma pneumoniae IgG Ab 395 U/mL (0-99)
--- NOTE | 2024-06-14 23:07 | DVHPN2 ---
Progress Note - Dictate Date Seen: Jun 14, 2024 Medical Necessity Reason Pt with a Central, PICC or Fol: No Subjective Patient seen and examined at bedside. Breathing comfortably on room air. Overnight events reviewed. vital signs Vital Sign Date Time Temp Pulse Resp B/P (MAP) Pulse Ox O2 Delivery O2 Flow Rate FiO2 06/14/24 21:14 112 20 99 06/14/24 21:09 Nasal Cannula* 2 28 06/14/24 21:00 98.0 96/50 (65) 98.0 Total Intake and Output 06/13/24 06/13/24 06/14/24 15:00 23:00 07:00 Intake Total 819 ml 1435 ml 800 ml Output Total 1350 ml 1100 ml Balance 819 ml 85 ml -300 ml medications Current Medications Medications Dose Ordered Sig/Sean Route Start Time Stop Time Status Last Admin Dose Admin Guaifenesin/ Dextromethorphan 10 ml Q4HP PRN PO 06/08/24 11:00 06/12/24 20:34 10 ML Enoxaparin Sodium 40 mg DAILY SC 06/10/24 10:00 06/14/24 09:50 40 MG Albuterol 2.5 mg Q4HR NEB 06/11/24 11:45 06/14/24 21:09 2.5 MG Trimethoprim/ Sulfamethoxazole 0 ml @ 0 mls/hr PER PHARMACY IV 06/12/24 20:30 Trimethoprim/ Sulfamethoxazole 19 ml/Dextrose 519 ml @ 129.75 mls/ hr Q8HR IV 06/12/24 22:00 06/14/24 22:29 129.75 MLS/HR Docusate Sodium 100 mg BIDPRN PRN PO 06/14/24 12:45 objective Gen.: Patient lying in bed in no apparent distress. Breathing on room air. Head: Normocephalic, atraumatic. Eyes: EOMI/PERRLA. Ears: Normal hearing. Normal anatomy. Neck/trachea: Trachea midline, supple. Nose: Normal external anatomy. Mouth: Moist mucous membranes. Chest: Decreased air entry bilaterally. No wheezing or rhonchi. Cardiovascular: Positive S1, positive S2. Regular rate and rhythm. Abdomen: Positive bowel sounds in all 4 quadrants. Soft, non-tender, non- distended. : Deferred. Rectal: Deferred. Skin: Warm, dry. Intact. Extremities: 2+ radial pulses bilaterally. No lower extremity edema. Neuro: Awake, alert, oriented x3. No gross motor or sensory deficits. Cranial nerves II through XII intact. Gait not assessed. laboratory and microbiology Laboratory Tests 06/14/24 05:26 06/13/24 05:34 Test 06/13/24 05:34 Range/Units Serum Glucose 93 74-106 mg/dL Assessment/Plan Impression: Cough HIV (recent diagnosis) Anemia Elevated LFTs Atypical pneumonia Events: Remains on room air No respiratory distress. Continue antibiotics Antitussive for cough Awaiting cultures ID recommendations appreciated. Labs reviewed. Rest of plan as noted below Plan: Supplemental oxygen PRN Titrate to keep O2 sats above 92%. S/p bronchoscopy on 06/12/24 with bronchoalveolar lavage of RML + lingula Fluid sent for Gram stain and cultures - fungal, viral, AFB smear and culture and silver stain Follow up results. Continue antibiotics Follow up cultures Monitor renal function. Monitor electrolytes. Supplement as necessary. Monitor ins and outs. DVT prophylaxis. Prognosis: Poor given patient's multiple co-morbidities. Rest of plan per hospitalist and other consultants. Thank you Dr. Cruz, for allowing me to participate in this patient's care. Further recommendations will depend on the patient's clinical course. Please do not hesitate to contact me if you have any questions or concerns. This medical document was created using an electronic medical record system with [employer] dictation system. Although these documentations are being carefully reviewed, there may still be some phonetic and typographical changes. The errors are purely typographical, due to imperfection on the software program, and do not reflect any compromise in the patient's medical care. Dietary Evaluation Review Comments: Encourage and monitor PO intake to meet 75% of his needs Expected Outcomes/Goals: free from symptoms, gradual weight gain. Plan discussed with: Patient, Other (AALIYAH Guerra) ANGELIC OTOOLE MD Jun 14, 2024 23:07
[2024-06-15] VITALS (20 sets, daily range): BP systolic 105–160; BP diastolic 55–80; PULSE 11–113; RESP 16–21; TEMP 96.5–98.6; O2SAT 95–100
--- NOTE | 2024-06-15 10:31 | DVH ---
CHEST RADIOGRAPH Indication: F/U PRIOR CXR AND OPACITIES. Technique: Single frontal view of the chest was obtained Comparison: XY CHEST XRAY 1 VIEW on DOS: 06/12/24 FINDINGS: Lines and Tubes: None Lungs: Bilateral opacities noted. Pleura: No effusion. No pneumothorax. Cardiomediastinal contours: Unremarkable Bones: No acute osseous abnormality. IMPRESSION: 1. Bilateral opacities which may reflect multifocal pneumonia.
--- NOTE | 2024-06-15 11:28 | DVHPN2 ---
Subjective still weak. but feeling better. Anxious about diagnosis. Reviewed: Care Plan, H&P, Labs, Medications, Previous Orders, Radiology, Other (Consultations) Changes from previous H/P or p: No Changes General: No Night Sweats, No Fatigue Neurological: No Weakness, No Numbness Cardiovascular: No Chest Pain Respiratory: Cough, Shortness of breath Gastrointestinal: No Nausea Musculoskeletal: No leg pain Endocrine: No Cold Intolerance Hematology: No Abnormal Bleeding Objective Vitals Vital Signs Date Time Temp Pulse Resp B/P (MAP) Pulse Ox O2 Delivery O2 Flow Rate FiO2 06/15/24 10:23 103 18 98 06/15/24 10:17 Nasal Cannula* 2 28 06/15/24 09:00 96.5 106/64 (78) 96.5 Intake/Output Intake and Output 06/15/24 06:59 Intake Total 1919 ml Output Total 2360 ml Balance -441 ml Intake Oral 1100 ml IV Total 819 ml Output Urine Total 2360 ml # Bowel Movements 2 General Appearance: Alert, Oriented X3, Cooperative HEENT: Atraumatic Lungs: Other Cardiovascular: Regular rate, Normal S1, Normal S2, No murmurs Abdomen: Normal bowel sounds, Soft, No tenderness, No hepatospenomegaly Extremities: No edema Neuro: Normal speech, Sensation intact Psych/Mental Status: Mental status NL, Mood NL Medications Current Medications Medications Dose Ordered Sig/Sean Route Start Time Stop Time Status Last Admin Dose Admin Guaifenesin/ Dextromethorphan 10 ml Q4HP PRN PO 06/08/24 11:00 06/12/24 20:34 10 ML Enoxaparin Sodium 40 mg DAILY SC 06/10/24 10:00 06/15/24 10:30 40 MG Albuterol 2.5 mg Q4HR NEB 06/11/24 11:45 06/15/24 10:17 2.5 MG Trimethoprim/ Sulfamethoxazole 0 ml @ 0 mls/hr PER PHARMACY IV 06/12/24 20:30 Trimethoprim/ Sulfamethoxazole 19 ml/Dextrose 519 ml @ 129.75 mls/ hr Q8HR IV 06/12/24 22:00 06/15/24 08:09 129.75 MLS/HR Docusate Sodium 100 mg BIDPRN PRN PO 06/14/24 12:45 Laboratory Results Laboratory Tests 06/13/24 05:34 06/14/24 05:26 Urinalysis Test 06/12/24 20:52 Urine Color Yellow (Yellow) Urine Clarity Clear (Clear) Urine pH 6.5 (5.0-9.0) Urine Specific [place] > 1.035 (1.001-1.035) Urine Protein Trace (Negative) H Urine Ketones Trace (Negative) Urine Blood Negative /uL (Negative) Urine Nitrite Negative (Negative) Urine Bilirubin Negative (Negative) Urine Urobilinogen 3 mg/dL (Negative) H Urine Leukocyte Esterase Negative /uL (Negative) Urine RBC <1 /hpf (0 - 3) Urine WBC 1 /hpf (0 - 3) Urine Squamous Epithelial Cells None seen /hpf (<5) Urine Bacteria None seen /hpf (None Seen) Urine Mucus Few (None Seen) Urine Glucose Normal mg/dL (Normal) Microbiology Microbiology Date/Time Source Procedure Growth Status 06/14/24 15:30 Sputum Gram Stain - Final Resulted 06/14/24 15:30 Sputum Respiratory Culture - Preliminary Resulted 06/12/24 10:45 Other Pending Resulted 06/12/24 10:45 Other Pending Resulted 06/12/24 10:45 Other Pending Resulted 06/12/24 10:45 Other Pending Resulted 06/12/24 10:45 Other - Final See Separate Report... Resulted 06/11/24 13:10 Blood Blood Culture - Preliminary NO GROWTH AFTER 72 HOURS OF INCUBATION. Resulted Assessment/Plan Assessment/Plan #Sespsis improved but continues to have pna and cough. present on admission. Ruling out TB. Labs have been sent our for AFB staining. QFG pending. - Completed course of ceft + azitro - Cont Bactrim for possible HIV Related PCP. - F/u TB - ID following. #Acute hypoxic respiratory failure; status post bronchoscopy with BAL this morning by pulmonology; continue oxygen therapy as indicated; continue nebulizer treatments; continue close monitoring - as above. #Productive cough due to bilateral pneumonia with the possibility of atypical infection including atypical tubercular mycobacterial fungal infections in the setting of recently diagnosed HIV;; ordered and reviewed chest CT without IV contrast; reviewed initial results of sputum culture; pulmonology is following; ID is following: Recommended bronchoscopy with BAL; now on room air; to start oxygen therapy if indicated; to rule out TB; to keep in airborne isolation; continue monitoring - Cont Bactrm, Azitro and Ceft. #HIV - Recently diagnosed homosexual male; reviewed resulted blood work by ID; ID is following; discussed using protection for sexual activities; - ID consulted. - Will need to establish care outpatient for ART therapy. #Normocytic anemia; unclear etiology but most likely early inflammatory; no signs/symptoms of active bleeding; continue monitoring - rectic low. - f/u smeear #Hyponatremia; very mild; asymptomatic; unclear etiology; continue monitoring Plan discussed with: Patient My Orders Orders - FABY FLANAGAN MD Procedure Category Date Status Time Docusate Sodium PHA 06/14/24 In Process Capsule (Colace 12:45 Respiratory Culture [place] 06/14/24 In Process W/ Gs 15:22 Complete Blood Count LAB 06/15/24 Logged 09:34 Chest Xray 1 View XY 06/15/24 Resulted 09:35 Complete Blood Count LAB 06/16/24 Verified 04:00 Comprehensive LAB 06/15/24 Logged Metabolic Panel 09:36 Date of Service: Jun 15, 2024 Billing Provider: FABY FLANAGAN MD Common Visit Codes: [id number] INP/OBS CARE(HIGH) FABY FLANAGAN MD Jun 15, 2024 11:27
[2024-06-15 12:13] LABS: Basophils # (auto) 0 10 ^3/uL (0-0.2); Basophils % (auto) 0.4 % (0.0-2.0); Eosinophils # (auto) 0.1 10 ^3/uL (0-0.8); Eosinophils % (auto) 1.3 % (0.0-7.0); Hematocrit 31.6 % (41.0-53.0); Hemoglobin 10.5 g/dL (13.5-17.5); Lymphocytes # (auto) 1.4 10 ^3/uL (0.4-5.4); Mean Corpuscular Hemoglobin 27.2 pg (28.0-32.0); Mean Corpuscular Hgb Conc. 33.4 g/dL (32.0-36.0); Mean Corpuscular Volume 81.4 fL (80.0-100.0); Monocytes # (auto) 0.4 10 ^3/uL (0-1.3); Monocytes % (auto) 9.9 % (0.0-12.0); Neutrophils # (auto) 2.4 10 ^3/uL (1.6-8.6); Neutrophils % (auto) 56.4 % (37.0-80.0); Platelet Count (auto) 219 10^3/uL (140-450); Red Blood Cells 3.88 10^6/uL (4.5-5.90); White Blood Cell 4.3 10^3/uL (4.4-10.8)
[2024-06-15 12:17] LABS: Alanine Aminotransferase 29 U/L (7-40); Alkaline Phosphatase 112 U/L (46-116); Anion Gap 8 (5-15); Aspartate Aminotransferase 34 U/L (13-40); BUN/Creatinine Ratio 9.5 (10.0-20.0); Calcium 9.6 mg/dL (8.7-10.4); Carbon Dioxide 24 mmol/L (20-31); Potassium 4.3 mmol/L (3.5-5.1); Total Protein 8.2 g/dL (5.7-8.2)
[2024-06-15 12:18] LABS: Bilirubin, Total 0.2 mg/dL (0.2-1.0); Blood Urea Nitrogen 7 mg/dL (9-23); Chloride 97 mmol/L (98-107); Glucose 114 mg/dL (74-106); Sodium 129 mmol/L (136-145)
--- NOTE | 2024-06-15 17:51 | DVHPN2 ---
Progress Note - Dictate Date Seen: Jun 15, 2024 Medical Necessity Reason Pt with a Central, PICC or Fol: No Subjective Patient reports that he is still weak but, feeling better. Bactrim tolerating He had bronchoscopy done on 06/12. vital signs Vital Sign Date Time Temp Pulse Resp B/P (MAP) Pulse Ox O2 Delivery O2 Flow Rate FiO2 06/15/24 17:00 98.6 108 16 112/70 (84) 98 98.6 06/15/24 13:53 Nasal Cannula 2.0 06/15/24 13:53 28 Total Intake and Output 06/14/24 06/14/24 06/15/24 15:00 23:00 07:00 Intake Total 300 ml 1319 ml 300 ml Output Total 1200 ml 1160 ml Balance 300 ml 119 ml -860 ml medications Current Medications Medications Dose Ordered Sig/Sean Route Start Time Stop Time Status Last Admin Dose Admin Guaifenesin/ Dextromethorphan 10 ml Q4HP PRN PO 06/08/24 11:00 06/12/24 20:34 10 ML Enoxaparin Sodium 40 mg DAILY SC 06/10/24 10:00 06/15/24 10:30 40 MG Albuterol 2.5 mg Q4HR NEB 06/11/24 11:45 06/15/24 13:53 2.5 MG Trimethoprim/ Sulfamethoxazole 0 ml @ 0 mls/hr PER PHARMACY IV 06/12/24 20:30 Trimethoprim/ Sulfamethoxazole 19 ml/Dextrose 519 ml @ 129.75 mls/ hr Q8HR IV 06/12/24 22:00 06/15/24 14:00 129.75 MLS/HR Docusate Sodium 100 mg BIDPRN PRN PO 06/14/24 12:45 objective General Appearance: Alert, Oriented X3, Cooperative, No acute distress HEENT: Atraumatic Respiratory: Other (Scattered crackles; good air entry bilateral) Cardiovascular: Regular rate, Normal S1, Normal S2 Abdominal: Normal bowel sounds, Soft, No tenderness Neuro: Normal gait, Normal speech, Strength at 5/5 X4 ext, Normal tone, Sensation intact, Cranial nerves 3-12 NL, Reflexes 2+ Psych/Mental Status: Mental status NL, Mood NL laboratory and microbiology Laboratory Tests 06/15/24 10:41 Test 06/15/24 10:41 Range/Units Serum Glucose 114 H 74-106 mg/dL Assessment/Plan Patient is a 28-year-old male with AIDS Pneumocystis Jerovoci or Carini Pneumonia ( opportunistic infection) multifocal pneumonia: atypical in nature Possible PCP pneumonia pulmonary nodule Homosexual elevated LFT anemia Immunosuppressed Recommendations Discussed with Pathologist Dr Garcia, Silver stain from BAL for PCP Pneumonia is +ve AFB stain is negative follow Quantiferon gold, Discontinue Ceftriaxone and Azithromycin Continue IV Bactrim 519 ml @ 129.75 q8h; will switch to oral to complete 21 days course.. ( trimethoprim 15mg/kg/day dose) HIV-1 RNA [PCR]: [id number]: needs ART therapy will start as outpt 06/14, Sputum culture showed Normal Oropharyngeal Karina BAL sample to be sent for bacterial, fungal, AFB and viral cultures. critical time 35 minutes spent. Prognosis guarded Thank you for consult Dietary Evaluation Review Comments: Encourage and monitor PO intake to meet 75% of his needs Expected Outcomes/Goals: free from symptoms, gradual weight gain. Plan discussed with: Other HOMERO VIGIL MD Jun 15, 2024 17:51
--- NOTE | 2024-06-15 23:20 | DVHPN2 ---
Progress Note - Dictate Date Seen: Jun 15, 2024 Medical Necessity Reason Pt with a Central, PICC or Fol: No Subjective Patient seen and examined at bedside. On supplemental oxygen Overnight events reviewed. vital signs Vital Sign Date Time Temp Pulse Resp B/P (MAP) Pulse Ox O2 Delivery O2 Flow Rate FiO2 06/15/24 22:24 102 18 100 06/15/24 22:17 Nasal Cannula* 2 28 06/15/24 21:00 97.9 108/64 (79) 97.9 Total Intake and Output 06/14/24 06/14/24 06/15/24 15:00 23:00 07:00 Intake Total 300 ml 1319 ml 300 ml Output Total 1200 ml 1160 ml Balance 300 ml 119 ml -860 ml medications Current Medications Medications Dose Ordered Sig/Sean Route Start Time Stop Time Status Last Admin Dose Admin Guaifenesin/ Dextromethorphan 10 ml Q4HP PRN PO 06/08/24 11:00 06/12/24 20:34 10 ML Enoxaparin Sodium 40 mg DAILY SC 06/10/24 10:00 06/15/24 10:30 40 MG Albuterol 2.5 mg Q4HR NEB 06/11/24 11:45 06/15/24 22:18 2.5 MG Trimethoprim/ Sulfamethoxazole 0 ml @ 0 mls/hr PER PHARMACY IV 06/12/24 20:30 Trimethoprim/ Sulfamethoxazole 19 ml/Dextrose 519 ml @ 129.75 mls/ hr Q8HR IV 06/12/24 22:00 06/15/24 21:27 129.75 MLS/HR Docusate Sodium 100 mg BIDPRN PRN PO 06/14/24 12:45 objective Gen.: Patient lying in bed in no apparent distress. On supplemental oxygen Head: Normocephalic, atraumatic. Eyes: EOMI/PERRLA. Ears: Normal hearing. Normal anatomy. Neck/trachea: Trachea midline, supple. Nose: Normal external anatomy. Mouth: Moist mucous membranes. Chest: Decreased air entry bilaterally. No wheezing or rhonchi. Cardiovascular: Positive S1, positive S2. Regular rate and rhythm. Abdomen: Positive bowel sounds in all 4 quadrants. Soft, non-tender, non- distended. : Deferred. Rectal: Deferred. Skin: Warm, dry. Intact. Extremities: 2+ radial pulses bilaterally. No lower extremity edema. Neuro: Awake, alert, oriented x3. No gross motor or sensory deficits. Cranial nerves II through XII intact. Gait not assessed. 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 Labs reviewed. Rest of plan as noted below Plan: Supplemental oxygen Titrate to keep O2 sats above 92%. S/p bronchoscopy on 06/12/24 with bronchoalveolar lavage of RML + lingula Fluid sent for Gram stain and cultures - fungal, viral, AFB smear and culture and silver stain Follow up results. Continue antibiotics Follow up cultures Monitor renal function. Monitor electrolytes. Supplement as necessary. Monitor ins and outs. DVT prophylaxis. Prognosis: Poor given patient's multiple co-morbidities. Rest of plan per hospitalist and other consultants. Thank you Dr. Cruz, for allowing me to participate in this patient's care. Further recommendations will depend on the patient's clinical course. Please do not hesitate to contact me if you have any questions or concerns. This medical document was created using an electronic medical record system with [employer] dictation system. Although these documentations are being carefully reviewed, there may still be some phonetic and typographical changes. The errors are purely typographical, due to imperfection on the software program, and do not reflect any compromise in the patient's medical care. Dietary Evaluation Review Comments: Encourage and monitor PO intake to meet 75% of his needs Expected Outcomes/Goals: free from symptoms, gradual weight gain. Plan discussed with: Patient, Other (RN Cynthia) ANGELIC OTOOLE MD Jun 15, 2024 23:20
[2024-06-16] VITALS (17 sets, daily range): BP systolic 92–171; BP diastolic 56–74; PULSE 90–118; RESP 16–20; TEMP 97.2–98.1; O2SAT 96–100
[2024-06-16 05:41] LABS: Basophils # (auto) 0 10 ^3/uL (0-0.2); Basophils % (auto) 0.4 % (0.0-2.0); Eosinophils # (auto) 0.1 10 ^3/uL (0-0.8); Hematocrit 32.9 % (41.0-53.0); Hemoglobin 11.2 g/dL (13.5-17.5); Lymphocytes # (auto) 0.9 10 ^3/uL (0.4-5.4); Mean Corpuscular Hemoglobin 27.7 pg (28.0-32.0); Mean Corpuscular Hgb Conc. 34.1 g/dL (32.0-36.0); Mean Corpuscular Volume 81.2 fL (80.0-100.0); Monocytes # (auto) 0.4 10 ^3/uL (0-1.3); Monocytes % (auto) 9.3 % (0.0-12.0); Neutrophils # (auto) 2.7 10 ^3/uL (1.6-8.6); Neutrophils % (auto) 65.3 % (37.0-80.0); Nucleated Red Blood Cells % 0.1 %; Platelet Count (auto) 240 10^3/uL (140-450); Red Blood Cells 4.05 10^6/uL (4.5-5.90); Red Cell Distribution Width 16.1 % (11.8-14.3); White Blood Cell 4.2 10^3/uL (4.4-10.8)
[2024-06-16 05:53] LABS: Chloride 99 mmol/L (98-107); Potassium 4.5 mmol/L (3.5-5.1)
[2024-06-16 05:54] LABS: Anion Gap 9 (5-15); Calcium 9.6 mg/dL (8.7-10.4); Carbon Dioxide 22 mmol/L (20-31)
[2024-06-16 05:59] LABS: BUN/Creatinine Ratio 8.3 (10.0-20.0); Glucose 97 mg/dL (74-106)
[2024-06-16 06:36] LABS: Blood Urea Nitrogen 6 mg/dL (9-23); Sodium 130 mmol/L (136-145)
--- NOTE | 2024-06-16 13:57 | DVHPN2 ---
Subjective Patient continues to report shortness of breath. Also reports having lower back pain. Reviewed: Care Plan, H&P, Labs, Medications, Previous Orders, Radiology, Other (Consultations) Changes from previous H/P or p: No Changes General: No Night Sweats, No Fatigue Neurological: No Weakness, No Numbness Cardiovascular: No Chest Pain Respiratory: Cough, Shortness of breath Gastrointestinal: No Nausea Musculoskeletal: No leg pain Endocrine: No Cold Intolerance Hematology: No Abnormal Bleeding Objective Vitals Vital Signs Date Time Temp Pulse Resp B/P (MAP) Pulse Ox O2 Delivery O2 Flow Rate FiO2 06/16/24 12:57 97.3 111 17 109/68 (82) 96 97.3 06/16/24 08:00 Nasal Cannula* 2 28 Intake/Output Intake and Output 06/16/24 07:00 Intake Total 1369 ml Output Total 1625 ml Balance -256 ml Intake Oral 850 ml IV Total 519 ml Output Urine Total 1625 ml General Appearance: Alert, Oriented X3, Cooperative, moderate distress HEENT: Atraumatic Lungs: Other Cardiovascular: Regular rate, Normal S1, Normal S2, No murmurs Abdomen: Normal bowel sounds, Soft, No tenderness, No hepatospenomegaly Extremities: No edema Neuro: Normal speech, Sensation intact Skin: Dry, Intact Psych/Mental Status: Mental status NL, Mood NL Medications Current Medications Medications Dose Ordered Sig/Sean Route Start Time Stop Time Status Last Admin Dose Admin Guaifenesin/ Dextromethorphan 10 ml Q4HP PRN PO 06/08/24 11:00 06/12/24 20:34 10 ML Enoxaparin Sodium 40 mg DAILY SC 06/10/24 10:00 06/16/24 10:03 40 MG Albuterol 2.5 mg Q4HR NEB 06/11/24 11:45 06/16/24 06:43 2.5 MG Trimethoprim/ Sulfamethoxazole 0 ml @ 0 mls/hr PER PHARMACY IV 06/12/24 20:30 Trimethoprim/ Sulfamethoxazole 19 ml/Dextrose 519 ml @ 129.75 mls/ hr Q8HR IV 06/12/24 22:00 06/16/24 07:53 129.75 MLS/HR Docusate Sodium 100 mg BIDPRN PRN PO 06/14/24 12:45 Morphine Sulfate 1 mg Q4HPRN PRN IV 06/16/24 14:00 UNV Acetaminophen/ Hydrocodone Bitart 1 tab Q6HPRN PRN PO 06/16/24 14:00 UNV Acetaminophen 500 mg Q8HP PRN PO 06/16/24 14:00 UNV Ondansetron HCl 4 mg Q6HP PRN IV 06/16/24 14:00 UNV Docusate Sodium 100 mg BID PRN PO 06/16/24 14:00 UNV Laboratory Results Laboratory Tests 06/16/24 05:12 Chemistry Test 06/16/24 05:12 Calcium Level 9.6 mg/dL (8.7-10.4) Urinalysis Test 06/12/24 20:52 Urine Color Yellow (Yellow) Urine Clarity Clear (Clear) Urine pH 6.5 (5.0-9.0) Urine Specific [place] > 1.035 (1.001-1.035) Urine Protein Trace (Negative) H Urine Ketones Trace (Negative) Urine Blood Negative /uL (Negative) Urine Nitrite Negative (Negative) Urine Bilirubin Negative (Negative) Urine Urobilinogen 3 mg/dL (Negative) H Urine Leukocyte Esterase Negative /uL (Negative) Urine RBC <1 /hpf (0 - 3) Urine WBC 1 /hpf (0 - 3) Urine Squamous Epithelial Cells None seen /hpf (<5) Urine Bacteria None seen /hpf (None Seen) Urine Mucus Few (None Seen) Urine Glucose Normal mg/dL (Normal) Microbiology Microbiology Date/Time Source Procedure Growth Status 06/14/24 15:30 Sputum Gram Stain - Final Resulted 06/14/24 15:30 Sputum Respiratory Culture - Preliminary Resulted 06/12/24 10:45 Other Pending Resulted 06/12/24 10:45 Other Pending Resulted 06/12/24 10:45 Other Pending Resulted 06/12/24 10:45 Other Pending Resulted 06/12/24 10:45 Other - Final See Separate Report... Resulted 06/11/24 13:10 Blood Blood Culture - Final NO GROWTH AFTER 5 DAYS OF INCUBATION. Complete Labs and/or images reviewed: Labs reviewed by me, Image(s) reviewed by me Assessment/Plan Assessment/Plan Impression: -acute hypoxic respiratory failure -multifocal pneumonia, probable P [place] -rule out tuberculosis -scoliosis -HIV/aids -hyponatremia Plan: -continue antibiotics per Infectious Disease doctor. Currently on Bactrim. Monitor for worsening hyponatremia -start pain management with Tylenol, [place] -O2 supplementation to keep saturation greater 92% -pulmonary consultation -monitor for results bronchial alveolar wash -repeat labs in a.m. Total time spent with patient discussing and formulating plan of care: 35 minutes. This medical document was created using an electronic medical record system with [employer] dictation system. Although this document has been carefully reviewed, there may still be some phonetic and typographical errors. These areas are purely typographical due to imperfections of the software programs, and do not reflect any compromise in the patient's medical care. Plan discussed with: Patient, Other (RN) My Orders Orders - MATTHEW MAURER NP Procedure Category Date Status Time Morphine Sulfate PHA 06/16/24 Logged Injection 14:00 Hydrocodone-Acet PHA 06/16/24 Logged 5/325mg Tab ([place] 14:00 Acetaminophen Tab Or PHA 06/16/24 Logged Cap (Tylenol Tablet 14:00 Ondansetron Hcl PHA 06/16/24 Logged (Zofran) 14:00 Docusate Sodium PHA 06/16/24 Logged Capsule (Colace 14:00 Basic Metabolic Panel LAB 06/17/24 Verified 04:00 Date of Service: Jun 16, 2024 Billing Provider: MATTHEW MAURER NP Common Visit Codes: [id number] INP/OBS CARE(HIGH) MATTHEW MAURER NP Jun 16, 2024 13:57
[2024-06-16] MEDS ORDERED: SULFAMETH TRIMETH IV SCH (14:58)
[2024-06-16] MEDS ORDERED: D5W 5% IV SCH (14:58)
[2024-06-16] MEDS: SULFAMETH-TRIMETH 80/16MG-ML 10 ML in D5W 5% 250 ML IV SCH (16:00)
--- NOTE | 2024-06-16 18:09 | DVHPN2 ---
Progress Note - Dictate Date Seen: Jun 16, 2024 Medical Necessity Reason Pt with a Central, PICC or Fol: No Subjective Patient seen and examined at bedside. On supplemental oxygen Overnight events reviewed. vital signs Vital Sign Date Time Temp Pulse Resp B/P (MAP) Pulse Ox O2 Delivery O2 Flow Rate FiO2 06/16/24 16:15 98.0 114 17 92/62 (72) 96 98.0 06/16/24 08:00 Nasal Cannula* 2 28 Total Intake and Output 06/15/24 06/15/24 06/16/24 15:00 23:00 07:00 Intake Total 519 ml 450 ml 400 ml Output Total 750 ml 875 ml Balance 519 ml -300 ml -475 ml medications Current Medications Medications Dose Ordered Sig/Sean Route Start Time Stop Time Status Last Admin Dose Admin Guaifenesin/ Dextromethorphan 10 ml Q4HP PRN PO 06/08/24 11:00 06/12/24 20:34 10 ML Enoxaparin Sodium 40 mg DAILY SC 06/10/24 10:00 06/16/24 10:03 40 MG Albuterol 2.5 mg Q4HR NEB 06/11/24 11:45 06/16/24 14:11 2.5 MG Trimethoprim/ Sulfamethoxazole 0 ml @ 0 mls/hr PER PHARMACY IV 06/12/24 20:30 Morphine Sulfate 1 mg Q4HPRN PRN IV 06/16/24 14:00 Acetaminophen/ Hydrocodone Bitart 1 tab Q6HPRN PRN PO 06/16/24 14:00 Acetaminophen 500 mg Q8HP PRN PO 06/16/24 14:00 Ondansetron HCl 4 mg Q6HP PRN IV 06/16/24 14:00 Docusate Sodium 100 mg BID PRN PO 06/16/24 14:00 Trimethoprim/ Sulfamethoxazole 10 ml/Dextrose 260 ml @ 130 mls/hr 0000,0600,0800,1400,1600,2200 IV 06/16/24 16:00 objective Gen.: Patient lying in bed in no apparent distress. On supplemental oxygen Head: Normocephalic, atraumatic. Eyes: EOMI/PERRLA. Ears: Normal hearing. Normal anatomy. Neck/trachea: Trachea midline, supple. Nose: Normal external anatomy. Mouth: Moist mucous membranes. Chest: Decreased air entry bilaterally. No wheezing or rhonchi. Cardiovascular: Positive S1, positive S2. Regular rate and rhythm. Abdomen: Positive bowel sounds in all 4 quadrants. Soft, non-tender, non- distended. : Deferred. Rectal: Deferred. Skin: Warm, dry. Intact. Extremities: 2+ radial pulses bilaterally. No lower extremity edema. Neuro: Awake, alert, oriented x3. No gross motor or sensory deficits. Cranial nerves II through XII intact. Gait not assessed. laboratory and microbiology Laboratory Tests 06/16/24 05:12 Test 06/16/24 05:12 Range/Units Serum Glucose 97 74-106 mg/dL Assessment/Plan Impression: Cough HIV (recent diagnosis) Anemia Elevated LFTs Atypical pneumonia Events: Remains on 2 LPM NC supplemental oxygen Taper O2 as tolerated Continue antibiotics - Bactrim for PCP of lung Continue bronchodilators Antitussive for cough Incentive spirometry ID recommendations appreciated. Labs reviewed. Rest of plan as noted below Plan: Supplemental oxygen Titrate to keep O2 sats above 92%. S/p bronchoscopy on 06/12/24 with bronchoalveolar lavage of RML + lingula Fluid sent for Gram stain and cultures - fungal, viral, AFB smear and culture and silver stain Follow up results. 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 Monitor electrolytes. Supplement as necessary. Monitor ins and outs. DVT prophylaxis. Prognosis: Poor given patient's multiple co-morbidities. Rest of plan per hospitalist and other consultants. Thank you Dr. Cruz, for allowing me to participate in this patient's care. Further recommendations will depend on the patient's clinical course. Please do not hesitate to contact me if you have any questions or concerns. This medical document was created using an electronic medical record system with [employer] dictation system. Although these documentations are being carefully reviewed, there may still be some phonetic and typographical changes. The errors are purely typographical, due to imperfection on the software program, and do not reflect any compromise in the patient's medical care. Dietary Evaluation Review Comments: Encourage and monitor PO intake to meet 75% of his needs Expected Outcomes/Goals: free from symptoms, gradual weight gain. Plan discussed with: Patient, Other (AALIYAH Hidalgo) ANGELIC OTOOLE MD Jun 16, 2024 18:09
--- NOTE | 2024-06-16 21:04 | DVHPN2 ---
Progress Note - Dictate Date Seen: Jun 16, 2024 Medical Necessity Reason Pt with a Central, PICC or Fol: No Subjective Patient continues to report shortness of breath. Also reports having lower back pain. Bactrim tolerating He had bronchoscopy done on 06/12. vital signs Vital Sign Date Time Temp Pulse Resp B/P (MAP) Pulse Ox O2 Delivery O2 Flow Rate FiO2 06/16/24 18:52 102 18 100 06/16/24 18:47 Nasal Cannula 2.0 06/16/24 18:47 28 06/16/24 16:15 98.0 92/62 (72) 98.0 Total Intake and Output 06/15/24 06/15/24 06/16/24 15:00 23:00 07:00 Intake Total 519 ml 450 ml 400 ml Output Total 750 ml 875 ml Balance 519 ml -300 ml -475 ml medications Current Medications Medications Dose Ordered Sig/Sean Route Start Time Stop Time Status Last Admin Dose Admin Guaifenesin/ Dextromethorphan 10 ml Q4HP PRN PO 06/08/24 11:00 06/12/24 20:34 10 ML Enoxaparin Sodium 40 mg DAILY SC 06/10/24 10:00 06/16/24 10:03 40 MG Albuterol 2.5 mg Q4HR NEB 06/11/24 11:45 06/16/24 18:47 2.5 MG Trimethoprim/ Sulfamethoxazole 0 ml @ 0 mls/hr PER PHARMACY IV 06/12/24 20:30 Morphine Sulfate 1 mg Q4HPRN PRN IV 06/16/24 14:00 Acetaminophen/ Hydrocodone Bitart 1 tab Q6HPRN PRN PO 06/16/24 14:00 Acetaminophen 500 mg Q8HP PRN PO 06/16/24 14:00 Ondansetron HCl 4 mg Q6HP PRN IV 06/16/24 14:00 Docusate Sodium 100 mg BID PRN PO 06/16/24 14:00 Trimethoprim/ Sulfamethoxazole 10 ml/Dextrose 260 ml @ 130 mls/hr 0000,0600,0800,1400,1600,2200 IV 06/16/24 16:00 06/16/24 16:00 130 MLS/HR objective General Appearance: Alert, Oriented X3, Cooperative, No acute distress HEENT: Atraumatic Respiratory: Other (Scattered crackles; good air entry bilateral) Cardiovascular: Regular rate, Normal S1, Normal S2 Abdominal: Normal bowel sounds, Soft, No tenderness Neuro: Normal gait, Normal speech, Strength at 5/5 X4 ext, Normal tone, Sensation intact, Cranial nerves 3-12 NL, Reflexes 2+ Psych/Mental Status: Mental status NL, Mood NL laboratory and microbiology Laboratory Tests 06/16/24 05:12 Test 06/16/24 05:12 Range/Units Serum Glucose 97 74-106 mg/dL Assessment/Plan Patient is a 28-year-old male with # hyponatremia AIDS Pneumocystis Jerovoci or Carini Pneumonia ( opportunistic infection) multifocal pneumonia: atypical in nature Possible PCP pneumonia pulmonary nodule Homosexual elevated LFT anemia Immunosuppressed Recommendations Discussed with Pathologist Dr Garcia, Silver stain from BAL for PCP Pneumonia is +ve AFB stain is negative follow Quantiferon gold, Discontinue Ceftriaxone and Azithromycin Continue IV Bactrim 519 ml @ 129.75 q8h; will switch to oral to complete 21 days course.. ( trimethoprim 15mg/kg/day dose) monitor hyponatremia HIV-1 RNA [PCR]: [id number]: needs ART therapy will start as outpt 06/14, Sputum culture showed Normal Oropharyngeal Karina BAL sample to be sent for bacterial, fungal, AFB and viral cultures. 06/15/2024 : Chest x-ray showed Bilateral opacities which may reflect multifocal pneumonia. critical time 35 minutes spent. Prognosis guarded Thank you for consult Dietary Evaluation Review Comments: Encourage and monitor PO intake to meet 75% of his needs Expected Outcomes/Goals: free from symptoms, gradual weight gain. Plan discussed with: HOMERO Gray MD Jun 16, 2024 21:04
[2024-06-16] MEDS: HYDROcodone-ACET 5/325MG TAB PO PRN (21:07)
[2024-06-17] VITALS (18 sets, daily range): BP systolic 103–117; BP diastolic 65–72; PULSE 72–106; RESP 16–19; TEMP 97.6–98.4; O2SAT 96–100
[2024-06-17] MEDS: ONDANSETRON HCL 4 MG/2 ML VIAL IV PRN (05:13)
[2024-06-17 06:17] LABS: Anion Gap 10 (5-15); Calcium 9.8 mg/dL (8.7-10.4); Carbon Dioxide 21 mmol/L (20-31); Potassium 4.2 mmol/L (3.5-5.1)
[2024-06-17 06:23] LABS: BUN/Creatinine Ratio 7.7 (10.0-20.0); Glucose 101 mg/dL (74-106)
[2024-06-17 06:39] LABS: Blood Urea Nitrogen 6 mg/dL (9-23); Chloride 97 mmol/L (98-107); Sodium 128 mmol/L (136-145)
[2024-06-17] MEDS: ACETAMINOPHEN 500 MG TAB or CAP PO PRN (10:35)
--- NOTE | 2024-06-17 16:18 | DVHPN2 ---
Subjective Patient continues to report shortness of breath. Also reports having lower back pain. Reviewed: Care Plan, H&P, Labs, Medications, Previous Orders, Radiology, Other (Consultations) Changes from previous H/P or p: No Changes General: No Night Sweats, No Fatigue Neurological: No Weakness, No Numbness Cardiovascular: No Chest Pain Respiratory: Cough, Shortness of breath Gastrointestinal: No Nausea Musculoskeletal: No leg pain Endocrine: No Cold Intolerance Hematology: No Abnormal Bleeding Objective Vitals Vital Signs Date Time Temp Pulse Resp B/P (MAP) Pulse Ox O2 Delivery O2 Flow Rate FiO2 06/17/24 14:36 100 18 100 06/17/24 14:30 Nasal Cannula 2.0 06/17/24 14:30 28 06/17/24 12:56 98.0 106/68 (81) 98.0 Intake/Output Intake and Output 06/17/24 07:00 Intake Total 1120 ml Output Total 900 ml Balance 220 ml Intake Oral 600 ml IV Total 520 ml Output Urine Total 900 ml # Voids 2 General Appearance: Alert, Oriented X3, Cooperative, moderate distress HEENT: Atraumatic Lungs: Other Cardiovascular: Regular rate, Normal S1, Normal S2, No murmurs Abdomen: Normal bowel sounds, Soft, No tenderness, No hepatospenomegaly Extremities: No edema Neuro: Normal speech, Sensation intact Skin: Dry, Intact Psych/Mental Status: Mental status NL, Mood NL Medications Current Medications Medications Dose Ordered Sig/Sean Route Start Time Stop Time Status Last Admin Dose Admin Guaifenesin/ Dextromethorphan 10 ml Q4HP PRN PO 06/08/24 11:00 06/17/24 05:14 10 ML Enoxaparin Sodium 40 mg DAILY SC 06/10/24 10:00 06/17/24 10:25 40 MG Albuterol 2.5 mg Q4HR NEB 06/11/24 11:45 06/17/24 14:24 2.5 MG Trimethoprim/ Sulfamethoxazole 0 ml @ 0 mls/hr PER PHARMACY IV 06/12/24 20:30 Morphine Sulfate 1 mg Q4HPRN PRN IV 06/16/24 14:00 Acetaminophen/ Hydrocodone Bitart 1 tab Q6HPRN PRN PO 06/16/24 14:00 06/16/24 21:07 1 TAB Acetaminophen 500 mg Q8HP PRN PO 06/16/24 14:00 06/17/24 10:35 500 MG Ondansetron HCl 4 mg Q6HP PRN IV 06/16/24 14:00 06/17/24 05:13 4 MG Docusate Sodium 100 mg BID PRN PO 06/16/24 14:00 Trimethoprim/ Sulfamethoxazole 10 ml/Dextrose 260 ml @ 130 mls/hr 0000,0600,0800,1400,1600,2200 IV 06/16/24 16:00 06/17/24 15:05 130 MLS/HR Laboratory Results Laboratory Tests 06/16/24 05:12 06/17/24 05:26 Chemistry Test 06/17/24 05:26 Calcium Level 9.8 mg/dL (8.7-10.4) Urinalysis Test 06/12/24 20:52 Urine Color Yellow (Yellow) Urine Clarity Clear (Clear) Urine pH 6.5 (5.0-9.0) Urine Specific [place] > 1.035 (1.001-1.035) Urine Protein Trace (Negative) H Urine Ketones Trace (Negative) Urine Blood Negative /uL (Negative) Urine Nitrite Negative (Negative) Urine Bilirubin Negative (Negative) Urine Urobilinogen 3 mg/dL (Negative) H Urine Leukocyte Esterase Negative /uL (Negative) Urine RBC <1 /hpf (0 - 3) Urine WBC 1 /hpf (0 - 3) Urine Squamous Epithelial Cells None seen /hpf (<5) Urine Bacteria None seen /hpf (None Seen) Urine Mucus Few (None Seen) Urine Glucose Normal mg/dL (Normal) Microbiology Microbiology Date/Time Source Procedure Growth Status 06/14/24 15:30 Sputum Gram Stain - Final Complete 06/14/24 15:30 Sputum Respiratory Culture - Final Complete 06/12/24 10:45 Other Pending Resulted 06/12/24 10:45 Other Pending Resulted 06/12/24 10:45 Other Pending Resulted 06/12/24 10:45 Other Pending Resulted 06/12/24 10:45 Other - Final See Separate Report... Resulted 06/11/24 13:10 Blood Blood Culture - Final NO GROWTH AFTER 5 DAYS OF INCUBATION. Complete Labs and/or images reviewed: Labs reviewed by me, Image(s) reviewed by me Assessment/Plan Assessment/Plan Impression: -acute hypoxic respiratory failure -multifocal pneumonia, probable P [place] -rule out tuberculosis -scoliosis -HIV/AIDS : New diagnosis -hyponatremia Plan: Events: Patient was states that his back pain has improved. Reports that he was still dyspneic with ambulation. Continue current treatment plan. -continue antibiotics per Infectious Disease doctor. Currently on Bactrim. Monitor for worsening hyponatremia -pain management: Tylenol, [place] -O2 supplementation to keep saturation greater 92% -pulmonary consultation -monitor for results bronchial alveolar wash -repeat labs in a.m. Total time spent with patient discussing and formulating plan of care: 35 minutes. This medical document was created using an electronic medical record system with [employer] dictation system. Although this document has been carefully reviewed, there may still be some phonetic and typographical errors. These areas are purely typographical due to imperfections of the software programs, and do not reflect any compromise in the patient's medical care. Plan discussed with: Patient, Other (RN) My Orders Orders - MATTHEW MAURER NP Procedure Category Date Status Time Chest Xray 1 View XY 06/17/24 Logged 14:45 Date of Service: Jun 17, 2024 Billing Provider: MATTHEW MAURER NP Common Visit Codes: [id number] INP/OBS CARE(HIGH) MATTHEW MAURER NP Jun 17, 2024 16:18
--- NOTE | 2024-06-17 16:45 | DVH ---
CHEST RADIOGRAPH Indication: pna Technique: Single frontal view of the chest was obtained COMPARISON: XY CHEST XRAY 1 VIEW on DOS: 06/15/24, XY CHEST XRAY 1 VIEW on DOS: 06/12/24, XY CHEST XRAY 1 VIEW on DOS: 06/11/24 FINDINGS: Lines and Tubes: None Lungs: Multifocal airspace disease. Pleura: No effusion. No pneumothorax. Cardiomediastinal contours: Unremarkable Bones: Unremarkable IMPRESSION: No significant interval change.
--- NOTE | 2024-06-17 23:07 | DVHPN2 ---
Progress Note - Dictate Date Seen: Jun 17, 2024 Medical Necessity Reason Pt with a Central, PICC or Fol: No Subjective Patient seen and examined at bedside. On supplemental oxygen Overnight events reviewed. vital signs Vital Sign Date Time Temp Pulse Resp B/P (MAP) Pulse Ox O2 Delivery O2 Flow Rate FiO2 06/17/24 22:00 92 18 100 06/17/24 21:00 98.4 108/65 (79) 98.4 06/17/24 14:30 Nasal Cannula 2.0 06/17/24 14:30 28 Total Intake and Output 06/16/24 06/16/24 06/17/24 15:00 23:00 07:00 Intake Total 200 ml 920 ml Output Total 900 ml Balance 200 ml 20 ml medications Current Medications Medications Dose Ordered Sig/Sean Route Start Time Stop Time Status Last Admin Dose Admin Guaifenesin/ Dextromethorphan 10 ml Q4HP PRN PO 06/08/24 11:00 06/17/24 05:14 10 ML Enoxaparin Sodium 40 mg DAILY SC 06/10/24 10:00 06/17/24 10:25 40 MG Albuterol 2.5 mg Q4HR NEB 06/11/24 11:45 06/17/24 21:57 2.5 MG Trimethoprim/ Sulfamethoxazole 0 ml @ 0 mls/hr PER PHARMACY IV 06/12/24 20:30 Morphine Sulfate 1 mg Q4HPRN PRN IV 06/16/24 14:00 Acetaminophen/ Hydrocodone Bitart 1 tab Q6HPRN PRN PO 06/16/24 14:00 06/17/24 22:21 1 TAB Acetaminophen 500 mg Q8HP PRN PO 06/16/24 14:00 06/17/24 10:35 500 MG Ondansetron HCl 4 mg Q6HP PRN IV 06/16/24 14:00 06/17/24 05:13 4 MG Docusate Sodium 100 mg BID PRN PO 06/16/24 14:00 Trimethoprim/ Sulfamethoxazole 10 ml/Dextrose 260 ml @ 130 mls/hr 0000,0600,0800,1400,1600,2200 IV 06/16/24 16:00 06/17/24 22:20 130 MLS/HR objective Gen.: Patient lying in bed in no apparent distress. On supplemental oxygen Head: Normocephalic, atraumatic. Eyes: EOMI/PERRLA. Ears: Normal hearing. Normal anatomy. Neck/trachea: Trachea midline, supple. Nose: Normal external anatomy. Mouth: Moist mucous membranes. Chest: Decreased air entry bilaterally. No wheezing or rhonchi. Cardiovascular: Positive S1, positive S2. Regular rate and rhythm. Abdomen: Positive bowel sounds in all 4 quadrants. Soft, non-tender, non- distended. : Deferred. Rectal: Deferred. Skin: Warm, dry. Intact. Extremities: 2+ radial pulses bilaterally. No lower extremity edema. Neuro: Awake, alert, oriented x3. No gross motor or sensory deficits. Cranial nerves II through XII intact. Gait not assessed. laboratory and microbiology Laboratory Tests 06/17/24 05:26 06/16/24 05:12 Test 06/17/24 05:26 Range/Units Serum Glucose 101 74-106 mg/dL Assessment/Plan Impression: Cough HIV (recent diagnosis) Anemia Elevated LFTs Atypical pneumonia Events: Remains on 2 LPM NC supplemental oxygen Taper O2 as tolerated Continue antibiotics - Bactrim for PCP of lung Continue bronchodilators Antitussive for cough Incentive spirometry ID recommendations appreciated. DVT prophylaxis w/ Lovenox Labs reviewed. Rest of plan as noted below Plan: Supplemental oxygen Titrate to keep O2 sats above 92%. S/p bronchoscopy on 06/12/24 with bronchoalveolar lavage of RML + lingula Fluid sent for Gram stain and cultures - fungal, viral, AFB smear and culture and silver stain Follow up results. 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 Monitor electrolytes. Supplement as necessary. Monitor ins and outs. DVT prophylaxis. Prognosis: Poor given patient's multiple co-morbidities. Rest of plan per hospitalist and other consultants. Thank you Dr. Cruz, for allowing me to participate in this patient's care. Further recommendations will depend on the patient's clinical course. Please do not hesitate to contact me if you have any questions or concerns. This medical document was created using an electronic medical record system with [employer] system. Although these documentations are being carefully reviewed, there may still be some phonetic and typographical changes. The errors are purely typographical, due to imperfection on the software program, and do not reflect any compromise in the patient's medical care. Dietary Evaluation Review Comments: Encourage and monitor PO intake to meet 75% of his needs Expected Outcomes/Goals: free from symptoms, gradual weight gain. Plan discussed with: Patient, Other (AALIYAH Machado) ANGELIC OTOOLE MD Jun 17, 2024 23:07
[2024-06-18] VITALS (17 sets, daily range): BP systolic 100–130; BP diastolic 60–80; PULSE 92–114; RESP 16–18; TEMP 97.2–98.9; O2SAT 96–100
--- NOTE | 2024-06-18 15:18 | DVHPN2 ---
Subjective Reports that his shortness of breath is improving. Reviewed: Care Plan, H&P, Labs, Medications, Previous Orders, Radiology, Other (Consultations) Changes from previous H/P or p: Changes General: No Night Sweats, No Fatigue Neurological: No Weakness, No Numbness Cardiovascular: No Chest Pain Respiratory: Cough, Shortness of breath Gastrointestinal: No Nausea Musculoskeletal: No leg pain Endocrine: No Cold Intolerance Hematology: No Abnormal Bleeding Objective Vitals Vital Signs Date Time Temp Pulse Resp B/P (MAP) Pulse Ox O2 Delivery O2 Flow Rate FiO2 06/18/24 11:30 99 18 100 06/18/24 11:25 Room Air* 0 21 06/18/24 09:00 97.3 107/77 (87) 97.3 Intake/Output Intake and Output 06/18/24 07:00 Intake Total 2380 ml Output Total 2150 ml Balance 230 ml Intake Oral 1600 ml IV Total 780 ml Output Urine Total 2150 ml General Appearance: Alert, Oriented X3, Cooperative, moderate distress HEENT: Atraumatic Lungs: Other Cardiovascular: Regular rate, Normal S1, Normal S2, No murmurs Abdomen: Normal bowel sounds, Soft, No tenderness, No hepatospenomegaly Extremities: No edema Neuro: Normal speech, Sensation intact Skin: Dry, Intact Psych/Mental Status: Mental status NL, Mood NL Medications Current Medications Medications Dose Ordered Sig/Sean Route Start Time Stop Time Status Last Admin Dose Admin Guaifenesin/ Dextromethorphan 10 ml Q4HP PRN PO 06/08/24 11:00 06/18/24 10:27 10 ML Enoxaparin Sodium 40 mg DAILY SC 06/10/24 10:00 06/18/24 10:10 40 MG Albuterol 2.5 mg Q4HR NEB 06/11/24 11:45 06/18/24 11:25 2.5 MG Trimethoprim/ Sulfamethoxazole 0 ml @ 0 mls/hr PER PHARMACY IV 06/12/24 20:30 Morphine Sulfate 1 mg Q4HPRN PRN IV 06/16/24 14:00 Acetaminophen/ Hydrocodone Bitart 1 tab Q6HPRN PRN PO 06/16/24 14:00 06/17/24 22:21 1 TAB Acetaminophen 500 mg Q8HP PRN PO 06/16/24 14:00 06/18/24 10:27 500 MG Ondansetron HCl 4 mg Q6HP PRN IV 06/16/24 14:00 06/17/24 05:13 4 MG Docusate Sodium 100 mg BID PRN PO 06/16/24 14:00 Trimethoprim/ Sulfamethoxazole 10 ml/Dextrose 260 ml @ 130 mls/hr 0000,0600,0800,1400,1600,2200 IV 06/16/24 16:00 06/18/24 14:43 130 MLS/HR Laboratory Results Laboratory Tests 06/16/24 05:12 06/17/24 05:26 Urinalysis Test 06/12/24 20:52 Urine Color Yellow (Yellow) Urine Clarity Clear (Clear) Urine pH 6.5 (5.0-9.0) Urine Specific [place] > 1.035 (1.001-1.035) Urine Protein Trace (Negative) H Urine Ketones Trace (Negative) Urine Blood Negative /uL (Negative) Urine Nitrite Negative (Negative) Urine Bilirubin Negative (Negative) Urine Urobilinogen 3 mg/dL (Negative) H Urine Leukocyte Esterase Negative /uL (Negative) Urine RBC <1 /hpf (0 - 3) Urine WBC 1 /hpf (0 - 3) Urine Squamous Epithelial Cells None seen /hpf (<5) Urine Bacteria None seen /hpf (None Seen) Urine Mucus Few (None Seen) Urine Glucose Normal mg/dL (Normal) Microbiology Microbiology Date/Time Source Procedure Growth Status 06/14/24 15:30 Sputum Gram Stain - Final Complete 06/14/24 15:30 Sputum Respiratory Culture - Final Complete 06/12/24 10:45 Other Pending Resulted 06/12/24 10:45 Other Pending Resulted 06/12/24 10:45 Other Pending Resulted 06/12/24 10:45 Other Pending Resulted 06/12/24 10:45 Other - Final See Separate Report... Resulted 06/11/24 13:10 Blood Blood Culture - Final NO GROWTH AFTER 5 DAYS OF INCUBATION. Complete Labs and/or images reviewed: Labs reviewed by me, Image(s) reviewed by me Assessment/Plan Assessment/Plan Impression: -acute hypoxic respiratory failure -multifocal pneumonia, probable P [place] -rule out tuberculosis -scoliosis -HIV/AIDS : New diagnosis -hyponatremia Plan: Events: Patient now on room air. Noted persistent hyponatremia. -check urine sodium, serum osmolality -free water restriction -continue antibiotics per Infectious Disease doctor. Currently on Bactrim. Monitor for worsening hyponatremia -pain management: Tylenol, [place] -O2 supplementation to keep saturation greater 92% -pulmonary consultation -monitor for results bronchial alveolar wash -repeat labs in a.m. Total time spent with patient discussing and formulating plan of care: 35 minutes. This medical document was created using an electronic medical record system with [employer] dictation system. Although this document has been carefully reviewed, there may still be some phonetic and typographical errors. These areas are purely typographical due to imperfections of the software programs, and do not reflect any compromise in the patient's medical care. Plan discussed with: Patient, Other (RN) My Orders Orders - MATTHEW MAURER NP Procedure Category Date Status Time Basic Metabolic Panel LAB 06/19/24 Verified 05:00 Basic Metabolic Panel LAB 06/20/24 Verified 05:00 Basic Metabolic Panel LAB 06/21/24 Verified 05:00 Complete Blood Count LAB 06/19/24 Verified 05:00 Complete Blood Count LAB 06/20/24 Verified 05:00 Complete Blood Count LAB 06/21/24 Verified 05:00 Date of Service: Jun 18, 2024 Billing Provider: MATTHEW MAURER NP Common Visit Codes: [id number] INP/OBS CARE(HIGH) MATTHEW MAURER NP Jun 18, 2024 15:18
--- NOTE | 2024-06-18 16:42 | DVHPN2 ---
Progress Note - Dictate Date Seen: Jun 18, 2024 Medical Necessity Reason Pt with a Central, PICC or Fol: No Subjective Patient reports that shortness of breath has been improved. Bactrim tolerating; sodium is low He had bronchoscopy done on 06/12. vital signs Vital Sign Date Time Temp Pulse Resp B/P (MAP) Pulse Ox O2 Delivery O2 Flow Rate FiO2 06/18/24 15:47 97 Room Air 0.0 06/18/24 15:47 96 16 06/18/24 15:47 21 06/18/24 13:00 97.4 130/75 (93) 97.4 Total Intake and Output 06/17/24 06/17/24 06/18/24 15:00 23:00 07:00 Intake Total 860 ml 1520 ml Output Total 800 ml 1350 ml Balance 60 ml 170 ml medications Current Medications Medications Dose Ordered Sig/Sean Route Start Time Stop Time Status Last Admin Dose Admin Guaifenesin/ Dextromethorphan 10 ml Q4HP PRN PO 06/08/24 11:00 06/18/24 10:27 10 ML Enoxaparin Sodium 40 mg DAILY SC 06/10/24 10:00 06/18/24 10:10 40 MG Albuterol 2.5 mg Q4HR NEB 06/11/24 11:45 06/18/24 15:47 2.5 MG Trimethoprim/ Sulfamethoxazole 0 ml @ 0 mls/hr PER PHARMACY IV 06/12/24 20:30 Morphine Sulfate 1 mg Q4HPRN PRN IV 06/16/24 14:00 Acetaminophen/ Hydrocodone Bitart 1 tab Q6HPRN PRN PO 06/16/24 14:00 06/17/24 22:21 1 TAB Acetaminophen 500 mg Q8HP PRN PO 06/16/24 14:00 06/18/24 10:27 500 MG Ondansetron HCl 4 mg Q6HP PRN IV 06/16/24 14:00 06/17/24 05:13 4 MG Docusate Sodium 100 mg BID PRN PO 06/16/24 14:00 Trimethoprim/ Sulfamethoxazole 10 ml/Dextrose 260 ml @ 130 mls/hr 0000,0600,0800,1400,1600,2200 IV 06/16/24 16:00 06/18/24 16:02 130 MLS/HR objective General Appearance: Alert, Oriented X3, Cooperative, No acute distress HEENT: Atraumatic Respiratory: Other (Scattered crackles; good air entry bilateral) Cardiovascular: Regular rate, Normal S1, Normal S2 Abdominal: Normal bowel sounds, Soft, No tenderness Neuro: Normal gait, Normal speech, Strength at 5/5 X4 ext, Normal tone, Sensation intact, Cranial nerves 3-12 NL, Reflexes 2+ Psych/Mental Status: Mental status NL, Mood NL laboratory and microbiology Laboratory Tests 06/17/24 05:26 06/16/24 05:12 Test 06/17/24 05:26 Range/Units Serum Glucose 101 74-106 mg/dL Assessment/Plan Patient is a 28-year-old male with # hyponatremia AIDS Pneumocystis Jerovoci or Carini Pneumonia ( opportunistic infection) multifocal pneumonia: atypical in nature Possible PCP pneumonia pulmonary nodule Homosexual elevated LFT anemia Immunosuppressed Recommendations Discussed with Pathologist Dr Garcia, Silver stain from BAL for PCP Pneumonia is +ve AFB stain is negative follow Quantiferon gold, off Ceftriaxone and Azithromycin Continue IV Bactrim 519 ml @ 129.75 q8h; will switch to oral to complete 21 days course.. ( trimethoprim 15mg/kg/day dose). Stop date is 07/04/2024 hyponatremia; likely due to bactrim follow chemistry restrict free water HIV-1 RNA [PCR]: [id number]: needs ART therapy will start as outpt 06/14, Sputum culture showed Normal Oropharyngeal Karina BAL sample to be sent for bacterial, fungal, AFB and viral cultures. follow 06/17/2024 : Chest x-ray showed Bilateral opacities which may reflect multifocal pneumonia. Prognosis guarded Thank you for consult Dietary Evaluation Review Comments: Encourage and monitor PO intake to meet 75% of his needs Expected Outcomes/Goals: free from symptoms, gradual weight gain. Plan discussed with: Other HOMERO VIGIL MD Jun 18, 2024 16:42
--- NOTE | 2024-06-18 23:12 | DVHPN2 ---
Progress Note - Dictate Date Seen: Jun 18, 2024 Medical Necessity Reason Pt with a Central, PICC or Fol: No Subjective Patient seen and examined at bedside. On supplemental oxygen Overnight events reviewed. vital signs Vital Sign Date Time Temp Pulse Resp B/P (MAP) Pulse Ox O2 Delivery O2 Flow Rate FiO2 06/18/24 21:50 105 18 100 06/18/24 21:43 Room Air* 0 21 06/18/24 21:00 98.9 119/71 (87) 98.9 Total Intake and Output 06/17/24 06/17/24 06/18/24 15:00 23:00 07:00 Intake Total 860 ml 1520 ml Output Total 800 ml 1350 ml Balance 60 ml 170 ml medications Current Medications Medications Dose Ordered Sig/Sean Route Start Time Stop Time Status Last Admin Dose Admin Guaifenesin/ Dextromethorphan 10 ml Q4HP PRN PO 06/08/24 11:00 06/18/24 10:27 10 ML Enoxaparin Sodium 40 mg DAILY SC 06/10/24 10:00 06/18/24 10:10 40 MG Albuterol 2.5 mg Q4HR NEB 06/11/24 11:45 06/18/24 21:43 2.5 MG Trimethoprim/ Sulfamethoxazole 0 ml @ 0 mls/hr PER PHARMACY IV 06/12/24 20:30 Morphine Sulfate 1 mg Q4HPRN PRN IV 06/16/24 14:00 Acetaminophen/ Hydrocodone Bitart 1 tab Q6HPRN PRN PO 06/16/24 14:00 06/17/24 22:21 1 TAB Acetaminophen 500 mg Q8HP PRN PO 06/16/24 14:00 06/18/24 18:41 500 MG Ondansetron HCl 4 mg Q6HP PRN IV 06/16/24 14:00 06/17/24 05:13 4 MG Docusate Sodium 100 mg BID PRN PO 06/16/24 14:00 Trimethoprim/ Sulfamethoxazole 10 ml/Dextrose 260 ml @ 130 mls/hr 0000,0600,0800,1400,1600,2200 IV 06/16/24 16:00 06/18/24 22:00 130 MLS/HR objective Gen.: Patient lying in bed in no apparent distress. On supplemental oxygen Head: Normocephalic, atraumatic. Eyes: EOMI/PERRLA. Ears: Normal hearing. Normal anatomy. Neck/trachea: Trachea midline, supple. Nose: Normal external anatomy. Mouth: Moist mucous membranes. Chest: Decreased air entry bilaterally. No wheezing or rhonchi. Cardiovascular: Positive S1, positive S2. Regular rate and rhythm. Abdomen: Positive bowel sounds in all 4 quadrants. Soft, non-tender, non- distended. : Deferred. Rectal: Deferred. Skin: Warm, dry. Intact. Extremities: 2+ radial pulses bilaterally. No lower extremity edema. Neuro: Awake, alert, oriented x3. No gross motor or sensory deficits. Cranial nerves II through XII intact. Gait not assessed. laboratory and microbiology Laboratory Tests 06/17/24 05:26 06/16/24 05:12 Test 06/17/24 05:26 Range/Units Serum Glucose 101 74-106 mg/dL Assessment/Plan Impression: Cough HIV (recent diagnosis) Anemia Elevated LFTs Atypical pneumonia Events: Remains on 1 LPM NC supplemental oxygen (down from 2 LPM) Taper O2 as tolerated Improved O2 requirements Continue antibiotics - Bactrim for PCP of lung Continue bronchodilators Antitussive for cough Incentive spirometry ID recommendations appreciated. DVT prophylaxis w/ Lovenox Disposition per hospitalist. Labs reviewed. Rest of plan as noted below Plan: Supplemental oxygen Titrate to keep O2 sats above 92%. 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 Monitor electrolytes. Supplement as necessary. Monitor ins and outs. DVT prophylaxis. Prognosis: Poor given patient's multiple co-morbidities. Rest of plan per hospitalist and other consultants. Thank you Dr. Cruz, for allowing me to participate in this patient's care. Further recommendations will depend on the patient's clinical course. Please do not hesitate to contact me if you have any questions or concerns. This medical document was created using an electronic medical record system with [employer] system. Although these documentations are being carefully reviewed, there may still be some phonetic and typographical changes. The errors are purely typographical, due to imperfection on the software program, and do not reflect any compromise in the patient's medical care. Dietary Evaluation Review Comments: Encourage and monitor PO intake to meet 75% of his needs Expected Outcomes/Goals: free from symptoms, gradual weight gain. Plan discussed with: Patient, Other (AALIYAH Machado) ANGELIC OTOOLE MD Jun 18, 2024 23:12
[2024-06-19] VITALS (17 sets, daily range): BP systolic 84–130; BP diastolic 49–78; PULSE 51–136; RESP 16–19; TEMP 97.6–98.6; O2SAT 96–100
[2024-06-19 06:58] LABS: Hemoglobin 11.7 g/dL (13.5-17.5); Mean Corpuscular Hemoglobin 27.3 pg (28.0-32.0); Mean Corpuscular Hgb Conc. 33.5 g/dL (32.0-36.0); Mean Corpuscular Volume 81.4 fL (80.0-100.0); Platelet Count (auto) 256 10^3/uL (140-450); White Blood Cell 2.5 10^3/uL (4.4-10.8)
[2024-06-19 07:13] LABS: Anion Gap 10 (5-15); Carbon Dioxide 22 mmol/L (20-31); Potassium 4.9 mmol/L (3.5-5.1)
[2024-06-19 07:15] LABS: Calcium 9.8 mg/dL (8.7-10.4)
[2024-06-19 07:18] LABS: Glucose 82 mg/dL (74-106)
[2024-06-19 07:19] LABS: BUN/Creatinine Ratio 8.2 (10.0-20.0)
[2024-06-19 07:21] LABS: Blood Urea Nitrogen 7 mg/dL (9-23); Chloride 95 mmol/L (98-107); Sodium 127 mmol/L (136-145)
[2024-06-19 07:26] LABS: Basophils % (manual) 0 (0.0-2.0); Blast Cells 0; Eosinophils % (manual) 0 (0-7); Metamyelocytes % 0; Myelocytes % 0; Promyelocytes % 0; Reactive Lymphocytes 0
[2024-06-19 08:10] LABS: Band Neutrophils % (manual) 11; Lymphocytes % (manual) 16 (10.0-50.0); Monocytes % (manual) 7 (0-12); Platelet Estimate Adequate
--- NOTE | 2024-06-19 14:22 | DVHPN2 ---
Progress Note - Dictate Date Seen: Jun 19, 2024 Medical Necessity Reason Pt with a Central, PICC or Fol: No Subjective Patient reports that shortness of breath has been improved. Bactrim tolerating; sodium is low He had bronchoscopy done on 06/12. vital signs Vital Sign Date Time Temp Pulse Resp B/P (MAP) Pulse Ox O2 Delivery O2 Flow Rate FiO2 06/19/24 12:43 97.9 120 16 127/71 (89) 98 97.9 06/19/24 08:00 Room Air* 0 21 Total Intake and Output 06/18/24 06/18/24 06/19/24 15:00 23:00 07:00 Intake Total 260 ml 420 ml 1075 ml Balance 260 ml 420 ml 1075 ml medications Current Medications Medications Dose Ordered Sig/Sean Route Start Time Stop Time Status Last Admin Dose Admin Guaifenesin/ Dextromethorphan 10 ml Q4HP PRN PO 06/08/24 11:00 06/18/24 10:27 10 ML Enoxaparin Sodium 40 mg DAILY SC 06/10/24 10:00 06/19/24 10:19 40 MG Albuterol 2.5 mg Q4HR NEB 06/11/24 11:45 06/19/24 14:17 2.5 MG Trimethoprim/ Sulfamethoxazole 0 ml @ 0 mls/hr PER PHARMACY IV 06/12/24 20:30 Morphine Sulfate 1 mg Q4HPRN PRN IV 06/16/24 14:00 Acetaminophen/ Hydrocodone Bitart 1 tab Q6HPRN PRN PO 06/16/24 14:00 06/19/24 13:19 1 TAB Acetaminophen 500 mg Q8HP PRN PO 06/16/24 14:00 06/19/24 05:51 500 MG Ondansetron HCl 4 mg Q6HP PRN IV 06/16/24 14:00 06/19/24 10:20 4 MG Docusate Sodium 100 mg BID PRN PO 06/16/24 14:00 Trimethoprim/ Sulfamethoxazole 10 ml/Dextrose 260 ml @ 130 mls/hr 0000,0600,0800,1400,1600,2200 IV 06/16/24 16:00 06/19/24 10:19 130 MLS/HR objective General Appearance: Alert, Oriented X3, Cooperative, No acute distress HEENT: Atraumatic Respiratory: Other (Scattered crackles; good air entry bilateral) Cardiovascular: Regular rate, Normal S1, Normal S2 Abdominal: Normal bowel sounds, Soft, No tenderness Neuro: Normal gait, Normal speech, Strength at 5/5 X4 ext, Normal tone, Sensation intact, Cranial nerves 3-12 NL, Reflexes 2+ Psych/Mental Status: Mental status NL, Mood NL laboratory and microbiology Laboratory Tests 06/19/24 05:41 Test 06/19/24 05:41 Range/Units Serum Glucose 82 74-106 mg/dL Assessment/Plan Patient is a 28-year-old male with # hyponatremia AIDS Pneumocystis Jerovoci or Carini Pneumonia ( opportunistic infection) multifocal pneumonia: atypical in nature Possible PCP pneumonia pulmonary nodule Homosexual elevated LFT anemia Immunosuppressed Recommendations Discussed with Pathologist Dr Garcia, Silver stain from BAL for PCP Pneumonia is +ve AFB stain is negative follow Quantiferon gold, off Ceftriaxone and Azithromycin Continue IV Bactrim 519 ml @ 129.75 q8h; will switch to oral to complete 21 days course.. ( trimethoprim 15mg/kg/day dose). Stop date is 07/04/2024 hyponatremia; likely due to bactrim follow chemistry restrict free water HIV-1 RNA [PCR]: [id number]: needs ART therapy will start as outpt 06/14, Sputum culture showed Normal Oropharyngeal Karina BAL sample to be sent for bacterial, fungal, AFB and viral cultures. follow 06/17/2024 : Chest x-ray showed Bilateral opacities which may reflect multifocal pneumonia. Prognosis guarded Thank you for consult Dietary Evaluation Review Comments: Encourage and monitor PO intake to meet 75% of his needs Expected Outcomes/Goals: free from symptoms, gradual weight gain. Plan discussed with: HOMERO Gray MD Jun 19, 2024 14:22
--- NOTE | 2024-06-19 16:53 | DVHPN2 ---
Subjective Reports that his shortness of breath is improving. Reviewed: Care Plan, H&P, Labs, Medications, Previous Orders, Radiology, Other (Consultations) Changes from previous H/P or p: No Changes General: No Night Sweats, No Fatigue Neurological: No Weakness, No Numbness Cardiovascular: No Chest Pain Respiratory: Cough, Shortness of breath Gastrointestinal: No Nausea Musculoskeletal: No leg pain Endocrine: No Cold Intolerance Hematology: No Abnormal Bleeding Objective Vitals Vital Signs Date Time Temp Pulse Resp B/P (MAP) Pulse Ox O2 Delivery O2 Flow Rate FiO2 06/19/24 16:33 98.0 121 16 130/78 (95) 97 98.0 06/19/24 08:00 Room Air* 0 21 Intake/Output Intake and Output 06/19/24 07:00 Intake Total 1755 ml Balance 1755 ml Intake Oral 980 ml IV Total 775 ml # Voids 2 General Appearance: Alert, Oriented X3, Cooperative, moderate distress HEENT: Atraumatic, PERRLA Lungs: Other Cardiovascular: Regular rate, Normal S1, Normal S2, No murmurs Abdomen: Normal bowel sounds, Soft, No tenderness, No hepatospenomegaly Extremities: No edema Neuro: Normal speech, Sensation intact Skin: Dry, Intact Psych/Mental Status: Mental status NL, Mood NL Medications Current Medications Medications Dose Ordered Sig/Sean Route Start Time Stop Time Status Last Admin Dose Admin Guaifenesin/ Dextromethorphan 10 ml Q4HP PRN PO 06/08/24 11:00 06/18/24 10:27 10 ML Enoxaparin Sodium 40 mg DAILY SC 06/10/24 10:00 06/19/24 10:19 40 MG Albuterol 2.5 mg Q4HR NEB 06/11/24 11:45 06/19/24 14:17 2.5 MG Trimethoprim/ Sulfamethoxazole 0 ml @ 0 mls/hr PER PHARMACY IV 06/12/24 20:30 Morphine Sulfate 1 mg Q4HPRN PRN IV 06/16/24 14:00 Acetaminophen/ Hydrocodone Bitart 1 tab Q6HPRN PRN PO 06/16/24 14:00 06/19/24 13:19 1 TAB Acetaminophen 500 mg Q8HP PRN PO 06/16/24 14:00 06/19/24 05:51 500 MG Ondansetron HCl 4 mg Q6HP PRN IV 06/16/24 14:00 06/19/24 16:22 4 MG Docusate Sodium 100 mg BID PRN PO 06/16/24 14:00 Trimethoprim/ Sulfamethoxazole 10 ml/Dextrose 260 ml @ 130 mls/hr 0000,0600,0800,1400,1600,2200 IV 06/16/24 16:00 06/19/24 15:05 130 MLS/HR Laboratory Results Laboratory Tests 06/19/24 05:41 Chemistry Test 06/19/24 05:41 Calcium Level 9.8 mg/dL (8.7-10.4) Urinalysis Test 06/12/24 20:52 06/19/24 10:30 Urine Color Yellow (Yellow) Urine Clarity Clear (Clear) Urine pH 6.5 (5.0-9.0) Urine Specific [place] > 1.035 (1.001-1.035) Urine Protein Trace (Negative) H Urine Ketones Trace (Negative) Urine Blood Negative /uL (Negative) Urine Nitrite Negative (Negative) Urine Bilirubin Negative (Negative) Urine Urobilinogen 3 mg/dL (Negative) H Urine Leukocyte Esterase Negative /uL (Negative) Urine RBC <1 /hpf (0 - 3) Urine WBC 1 /hpf (0 - 3) Urine Squamous Epithelial Cells None seen /hpf (<5) Urine Bacteria None seen /hpf (None Seen) Urine Mucus Few (None Seen) Urine Glucose Normal mg/dL (Normal) Urine Sodium 76 mmol/L (40-220) Microbiology Microbiology Date/Time Source Procedure Growth Status 06/14/24 15:30 Sputum Gram Stain - Final Complete 06/14/24 15:30 Sputum Respiratory Culture - Final Complete 06/12/24 10:45 Other Pending Resulted 06/12/24 10:45 Other Pending Resulted 06/12/24 10:45 Other Pending Resulted 06/12/24 10:45 Other Pending Resulted 06/12/24 10:45 Other - Final See Separate Report... Resulted 06/11/24 13:10 Blood Blood Culture - Final NO GROWTH AFTER 5 DAYS OF INCUBATION. Complete Labs and/or images reviewed: Labs reviewed by me, Image(s) reviewed by me Assessment/Plan Assessment/Plan Impression: -acute hypoxic respiratory failure -multifocal pneumonia, probable P [place] -rule out tuberculosis -scoliosis -HIV/AIDS : New diagnosis -hyponatremia -rule out SIADH Plan: Events: Discussed case with Infectious Disease. Sodium 127. Serum osmolality normal. Urine sodium pending. -check urine sodium, serum osmolality -nephrology consultation -free water restriction -continue antibiotics per Infectious Disease doctor. Currently on Bactrim. Monitor for worsening hyponatremia -pain management: Tylenol, [place] -O2 supplementation to keep saturation greater 92% -pulmonary consultation -monitor for results bronchial alveolar wash -repeat labs in a.m. Total time spent with patient discussing and formulating plan of care: 35 minutes. This medical document was created using an electronic medical record system with [employer] dictation system. Although this document has been carefully reviewed, there may still be some phonetic and typographical errors. These areas are purely typographical due to imperfections of the software programs, and do not reflect any compromise in the patient's medical care. Plan discussed with: Patient, Other (RN) My Orders Orders - MATTHEW MAURER NP Procedure Category Date Status Time *[facility] CONS 06/19/24 Transmitted -[place] 15:42 Osmolality, Serum LAB 06/19/24 Logged 15:42 Date of Service: Jun 19, 2024 Billing Provider: MATTHEW MAURER NP Common Visit Codes: 60140-HYVUXYTOHS INP/OBS CARE(HIGH) MATTHEW MAURER NP Jun 19, 2024 16:53
[2024-06-19 22:06] LABS: Mycoplasma pneumoniae IgM Ab <770 U/mL (0-769)
--- NOTE | 2024-06-19 22:35 | DVHPN2 ---
Progress Note - Dictate Date Seen: Jun 19, 2024 Medical Necessity Reason Pt with a Central, PICC or Fol: No Subjective Patient seen and examined at bedside. On room air Overnight events reviewed. vital signs Vital Sign Date Time Temp Pulse Resp B/P (MAP) Pulse Ox O2 Delivery O2 Flow Rate FiO2 06/19/24 21:00 97.6 120 18 127/67 (87) 99 97.6 06/19/24 18:32 Room Air* 0 21 Total Intake and Output 06/18/24 06/18/24 06/19/24 15:00 23:00 07:00 Intake Total 260 ml 420 ml 1075 ml Balance 260 ml 420 ml 1075 ml medications Current Medications Medications Dose Ordered Sig/Sean Route Start Time Stop Time Status Last Admin Dose Admin Guaifenesin/ Dextromethorphan 10 ml Q4HP PRN PO 06/08/24 11:00 06/18/24 10:27 10 ML Enoxaparin Sodium 40 mg DAILY SC 06/10/24 10:00 06/19/24 10:19 40 MG Albuterol 2.5 mg Q4HR NEB 06/11/24 11:45 06/19/24 18:32 2.5 MG Trimethoprim/ Sulfamethoxazole 0 ml @ 0 mls/hr PER PHARMACY IV 06/12/24 20:30 Morphine Sulfate 1 mg Q4HPRN PRN IV 06/16/24 14:00 Acetaminophen/ Hydrocodone Bitart 1 tab Q6HPRN PRN PO 06/16/24 14:00 06/19/24 13:19 1 TAB Acetaminophen 500 mg Q8HP PRN PO 06/16/24 14:00 06/19/24 18:20 500 MG Ondansetron HCl 4 mg Q6HP PRN IV 06/16/24 14:00 06/19/24 16:22 4 MG Docusate Sodium 100 mg BID PRN PO 06/16/24 14:00 Trimethoprim/ Sulfamethoxazole 10 ml/Dextrose 260 ml @ 130 mls/hr 0000,0600,0800,1400,1600,2200 IV 06/16/24 16:00 06/19/24 17:22 130 MLS/HR objective Gen.: Patient lying in bed in no apparent distress. On room air Head: Normocephalic, atraumatic. Eyes: EOMI/PERRLA. Ears: Normal hearing. Normal anatomy. Neck/trachea: Trachea midline, supple. Nose: Normal external anatomy. Mouth: Moist mucous membranes. Chest: Decreased air entry bilaterally. No wheezing or rhonchi. Cardiovascular: Positive S1, positive S2. Regular rate and rhythm. Abdomen: Positive bowel sounds in all 4 quadrants. Soft, non-tender, non- distended. : Deferred. Rectal: Deferred. Skin: Warm, dry. Intact. Extremities: 2+ radial pulses bilaterally. No lower extremity edema. Neuro: Awake, alert, oriented x3. No gross motor or sensory deficits. Cranial nerves II through XII intact. Gait not assessed. laboratory and microbiology Laboratory Tests 06/19/24 05:41 Test 06/19/24 05:41 Range/Units Serum Glucose 82 74-106 mg/dL Assessment/Plan Impression: Cough HIV (recent diagnosis) Anemia Elevated LFTs Atypical pneumonia Events: Currently on room air Supplemental oxygen PRN Improved O2 requirements Pt with nausea/vomiting Antiemetic - Zofran Continue antibiotics - Bactrim for PCP of lung Incentive spirometry Follow up ID recommendations DVT prophylaxis w/ Lovenox Disposition per hospitalist. Labs reviewed. Rest of plan as noted below Plan: On room air Supplemental oxygen PRN Titrate to keep O2 sats above 92%. 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 Monitor electrolytes. Supplement as necessary. Monitor ins and outs. DVT prophylaxis. Prognosis: Poor given patient's multiple co-morbidities. Rest of plan per hospitalist and other consultants. Thank you Dr. Cruz, for allowing me to participate in this patient's care. Further recommendations will depend on the patient's clinical course. Please do not hesitate to contact me if you have any questions or concerns. This medical document was created using an electronic medical record system with [employer] dictation system. Although these documentations are being carefully reviewed, there may still be some phonetic and typographical changes. The errors are purely typographical, due to imperfection on the software program, and do not reflect any compromise in the patient's medical care. Dietary Evaluation Review Comments: Encourage and monitor PO intake to meet 75% of his needs Expected Outcomes/Goals: free from symptoms, gradual weight gain. Plan discussed with: Patient, Other (AALIYAH Davis) ANGELIC OTOOLE MD Jun 19, 2024 22:35
[2024-06-20] VITALS (19 sets, daily range): BP systolic 93–112; BP diastolic 57–67; PULSE 20–133; RESP 16–20; TEMP 97.7–100.4; O2SAT 95–100
[2024-06-20 07:14] LABS: Basophils # (auto) 0 10 ^3/uL (0-0.2); Basophils % (auto) 0.8 % (0.0-2.0); Eosinophils # (auto) 0 10 ^3/uL (0-0.8); Eosinophils % (auto) 0.9 % (0.0-7.0); Hemoglobin 11.4 g/dL (13.5-17.5); Lymphocytes # (auto) 0.5 10 ^3/uL (0.4-5.4); Lymphocytes % (auto) 23.3 % (10.0-50.0); Mean Corpuscular Hemoglobin 27.3 pg (28.0-32.0); Mean Corpuscular Hgb Conc. 33.6 g/dL (32.0-36.0); Mean Corpuscular Volume 81.3 fL (80.0-100.0); Monocytes # (auto) 0.1 10 ^3/uL (0-1.3); Monocytes % (auto) 4.7 % (0.0-12.0); Neutrophils # (auto) 1.6 10 ^3/uL (1.6-8.6); Neutrophils % (auto) 70.3 % (37.0-80.0); Nucleated Red Blood Cells % 0.3 %; Platelet Count (auto) 233 10^3/uL (140-450); Red Blood Cells 4.18 10^6/uL (4.5-5.90); Red Cell Distribution Width 16.4 % (11.8-14.3); White Blood Cell 2.3 10^3/uL (4.4-10.8)
[2024-06-20 07:19] LABS: Potassium 4.7 mmol/L (3.5-5.1)
[2024-06-20 07:20] LABS: Anion Gap 7 (5-15); Calcium 9.6 mg/dL (8.7-10.4); Carbon Dioxide 24 mmol/L (20-31)
[2024-06-20 07:22] LABS: Chloride 91 mmol/L (98-107); Sodium 122 mmol/L (136-145)
[2024-06-20 07:25] LABS: BUN/Creatinine Ratio 10.2 (10.0-20.0); Blood Urea Nitrogen 10 mg/dL (9-23); Glucose 92 mg/dL (74-106)
--- NOTE | 2024-06-20 12:49 | DVHPN2 ---
Subjective Reports Nausea Reviewed: Care Plan, H&P, Labs, Medications, Previous Orders, Radiology, Other (Consultations) Changes from previous H/P or p: No Changes General: No Night Sweats, No Fatigue Neurological: No Weakness, No Numbness Cardiovascular: No Chest Pain Respiratory: Cough, Shortness of breath Gastrointestinal: No Nausea Musculoskeletal: No leg pain Endocrine: No Cold Intolerance Hematology: No Abnormal Bleeding Objective Vitals Vital Signs Date Time Temp Pulse Resp B/P (MAP) Pulse Ox O2 Delivery O2 Flow Rate FiO2 06/20/24 09:42 108 18 100 06/20/24 09:37 Room Air* 0 21 06/20/24 09:00 98.4 102/67 (79) 98.4 Intake/Output Intake and Output 06/20/24 07:00 Intake Total 2040 ml Balance 2040 ml Intake Oral 1000 ml IV Total 1040 ml # Voids 4 General Appearance: Alert, Oriented X3, Cooperative, moderate distress HEENT: Atraumatic, PERRLA Lungs: Other Cardiovascular: Regular rate, Normal S1, Normal S2, No murmurs Abdomen: Normal bowel sounds, Soft, No tenderness, No hepatospenomegaly Genitourinary: No Apparent Abnormalities Extremities: No edema Neuro: Normal speech, Sensation intact Skin: Dry, Intact Psych/Mental Status: Mental status NL, Mood NL Medications Current Medications Medications Dose Ordered Sig/Sean Route Start Time Stop Time Status Last Admin Dose Admin Guaifenesin/ Dextromethorphan 10 ml Q4HP PRN PO 06/08/24 11:00 06/18/24 10:27 10 ML Enoxaparin Sodium 40 mg DAILY SC 06/10/24 10:00 06/20/24 10:15 40 MG Albuterol 2.5 mg Q4HR NEB 06/11/24 11:45 06/20/24 09:37 2.5 MG Trimethoprim/ Sulfamethoxazole 0 ml @ 0 mls/hr PER PHARMACY IV 06/12/24 20:30 Morphine Sulfate 1 mg Q4HPRN PRN IV 06/16/24 14:00 Acetaminophen/ Hydrocodone Bitart 1 tab Q6HPRN PRN PO 06/16/24 14:00 06/20/24 06:04 1 TAB Acetaminophen 500 mg Q8HP PRN PO 06/16/24 14:00 06/20/24 10:18 500 MG Ondansetron HCl 4 mg Q6HP PRN IV 06/16/24 14:00 06/20/24 12:03 4 MG Docusate Sodium 100 mg BID PRN PO 06/16/24 14:00 Trimethoprim/ Sulfamethoxazole 10 ml/Dextrose 260 ml @ 130 mls/hr 0000,0600,0800,1400,1600,2200 IV 06/16/24 16:00 06/20/24 10:15 130 MLS/HR Laboratory Results Laboratory Tests 06/20/24 06:42 Chemistry Test 06/20/24 06:42 Calcium Level 9.6 mg/dL (8.7-10.4) Urinalysis Test 06/12/24 20:52 06/19/24 10:30 Urine Color Yellow (Yellow) Urine Clarity Clear (Clear) Urine pH 6.5 (5.0-9.0) Urine Specific [place] > 1.035 (1.001-1.035) Urine Protein Trace (Negative) H Urine Ketones Trace (Negative) Urine Blood Negative /uL (Negative) Urine Nitrite Negative (Negative) Urine Bilirubin Negative (Negative) Urine Urobilinogen 3 mg/dL (Negative) H Urine Leukocyte Esterase Negative /uL (Negative) Urine RBC <1 /hpf (0 - 3) Urine WBC 1 /hpf (0 - 3) Urine Squamous Epithelial Cells None seen /hpf (<5) Urine Bacteria None seen /hpf (None Seen) Urine Mucus Few (None Seen) Urine Glucose Normal mg/dL (Normal) Urine Sodium 76 mmol/L (40-220) Microbiology Microbiology Date/Time Source Procedure Growth Status 06/14/24 15:30 Sputum Gram Stain - Final Complete 06/14/24 15:30 Sputum Respiratory Culture - Final Complete 06/12/24 10:45 Other Pending Resulted 06/12/24 10:45 Other Pending Resulted 06/12/24 10:45 Other Pending Resulted 06/12/24 10:45 Other Pending Resulted 06/12/24 10:45 Other - Final See Separate Report... Resulted 06/11/24 13:10 Blood Blood Culture - Final NO GROWTH AFTER 5 DAYS OF INCUBATION. Complete Labs and/or images reviewed: Labs reviewed by me, Image(s) reviewed by me Assessment/Plan Assessment/Plan Impression: -acute hypoxic respiratory failure -multifocal pneumonia, probable P [place] -rule out tuberculosis -scoliosis -HIV/AIDS : New diagnosis -hyponatremia -rule out SIADH Plan: Events: Sodium now decreased to 122. Discussed case with Nephrology. Urine osmo pending. -antiemetics -nephrology consultation -free water restriction -continue antibiotics per Infectious Disease doctor. Currently on Bactrim. Monitor for worsening hyponatremia -pain management: Tylenol, Sloan -O2 supplementation to keep saturation greater 92% -pulmonary consultation -monitor for results bronchial alveolar wash -repeat labs in a.m. Total time spent with patient discussing and formulating plan of care: 35 minutes. This medical document was created using an electronic medical record system with Preo dictation system. Although this document has been carefully reviewed, there may still be some phonetic and typographical errors. These areas are purely typographical due to imperfections of the software programs, and do not reflect any compromise in the patient's medical care. Plan discussed with: Patient, Other (RN) My Orders Orders - MATTHEW MAURER NP Procedure Category Date Status Time *Dr[facility] CONS 06/19/24 Transmitted -High [facility] 15:42 Osmolality Urine LAB 06/20/24 Logged 11:04 Date of Service: Jun 20, 2024 Billing Provider: MATTHEW MAURER NP Common Visit Codes: [id number] INP/OBS CARE(HIGH) MATTHEW MAURER NP Jun 20, 2024 12:49
--- NOTE | 2024-06-20 15:42 | DVHPNRES ---
Progress Note Date Seen: Jun 20, 2024 Resident Creating Document: SHEILA RUANO RESIDENT Medical Necessity Reason Pt with a Central, PICC or Fol: No Subjective Review of Systems Reasons for consultation: atypical pneumonia Patient reports that shortness of breath has been improved. Bactrim tolerating; sodium is low He had bronchoscopy done on 06/12. Objective vital signs Vital Sign Date Time Temp Pulse Resp B/P (MAP) Pulse Ox O2 Delivery O2 Flow Rate FiO2 06/20/24 13:36 97 Room Air* 0 21 06/20/24 13:36 106 16 06/20/24 12:51 98.1 109/59 (76) 98.1 Total Intake and Output 06/19/24 06/19/24 06/20/24 15:00 23:00 07:00 Intake Total 260 ml 1160 ml 620 ml Balance 260 ml 1160 ml 620 ml medications Current Medications Medications Dose Ordered Sig/Sean Route Start Time Stop Time Status Last Admin Dose Admin Guaifenesin/ Dextromethorphan 10 ml Q4HP PRN PO 06/08/24 11:00 06/18/24 10:27 10 ML Enoxaparin Sodium 40 mg DAILY SC 06/10/24 10:00 06/20/24 10:15 40 MG Albuterol 2.5 mg Q4HR NEB 06/11/24 11:45 06/20/24 09:37 2.5 MG Trimethoprim/ Sulfamethoxazole 0 ml @ 0 mls/hr PER PHARMACY IV 06/12/24 20:30 Morphine Sulfate 1 mg Q4HPRN PRN IV 06/16/24 14:00 Acetaminophen/ Hydrocodone Bitart 1 tab Q6HPRN PRN PO 06/16/24 14:00 06/20/24 06:04 1 TAB Acetaminophen 500 mg Q8HP PRN PO 06/16/24 14:00 06/20/24 10:18 500 MG Ondansetron HCl 4 mg Q6HP PRN IV 06/16/24 14:00 06/20/24 12:03 4 MG Docusate Sodium 100 mg BID PRN PO 06/16/24 14:00 Trimethoprim/ Sulfamethoxazole 10 ml/Dextrose 260 ml @ 130 mls/hr 0000,0600,0800,1400,1600,2200 IV 06/16/24 16:00 06/20/24 15:10 130 MLS/HR Examination General Appearance: Alert, Oriented X3, Cooperative, No acute distress HEENT: Atraumatic Respiratory: Other (Scattered crackles; good air entry bilateral) Cardiovascular: Regular rate, Normal S1, Normal S2 Abdominal: Normal bowel sounds, Soft, No tenderness Neuro: Normal gait, Normal speech, Strength at 5/5 X4 ext, Normal tone, Sensation intact, Cranial nerves 3-12 NL, Reflexes 2+ Psych/Mental Status: Mental status NL, Mood NL laboratory and microbiology Laboratory Tests 06/20/24 06:42 Test 06/20/24 06:42 Range/Units Serum Glucose 92 74-106 mg/dL Microbiology Date/Time Source Procedure Growth Status 06/14/24 15:30 Sputum Gram Stain - Final Complete 06/14/24 15:30 Sputum Respiratory Culture - Final Complete 06/12/24 10:45 Other Pending Resulted 06/12/24 10:45 Other Pending Resulted 06/12/24 10:45 Other Pending Resulted 06/12/24 10:45 Other Pending Resulted 06/12/24 10:45 Other - Final See Separate Report... Resulted 06/11/24 13:10 Blood Blood Culture - Final NO GROWTH AFTER 5 DAYS OF INCUBATION. Complete Problem List/Assessment/Plan Problem List/Assessment/Plan ID Assessment: Patient is a 28-year-old male with hyponatremia AIDS Pneumocystis Jerovoci or Carini Pneumonia ( opportunistic infection) multifocal pneumonia: atypical in nature Possible PCP pneumonia pulmonary nodule Homosexual elevated LFT anemia Immunosuppressed ID Plan: Silver stain from BAL for PCP Pneumonia is +ve AFB stain is negative Quantiferon gold: Result pending # Medications: Antibiotic status: Continue IV Bactrim 519 ml @ 129.75 q8h; will switch to oral to complete 21 days course.. ( trimethoprim 15mg/kg/day dose). Stop date is 07/04/2024 Lab: 06/14, Sputum culture showed Normal Oropharyngeal Karina BAL sample to be sent for bacterial, fungal, AFB and viral cultures. follow 06/17/2024 : Chest x-ray showed Bilateral opacities which may reflect multifocal pneumonia. Others: hyponatremia; likely due to bactrim follow chemistry restrict free water HIV-1 RNA [PCR]: [id number]: needs ART therapy will start as outpt Prognosis guarded Thank you so much for the opportunity to consult on your patient. In case of any questions or concerns please feel free to reach out. Case and plan discussed with Dr. Galvan. Complex care planning needed total 23 minutes of detailed discussion. The patient and caregiver team agreed to the plan. Plan discussed with: Patient Dietary Evaluation Review Comments: Encourage and monitor PO intake to meet 75% of his needs Expected Outcomes/Goals: free from symptoms, gradual weight gain. SHEILA RUANO RESIDENT Jun 20, 2024 15:42
--- NOTE | 2024-06-20 17:01 | DVHINCON2 ---
Date of service: Jun 20, 2024 Reason for Consultation hyponatremia History of Present Illness 28 year old male w/ AIDS p/w SOB. Found to have PCP he was started on bactrim IV for treatment. Nephrology called due to worsening Na Past Medical History as above Allergies: Coded Allergies: NO KNOWN ALLERGIES (Unverified , 06/08/24) Home Meds No Active Prescriptions or Reported Meds Family History: Diabetes mellitus G8 MOTHER G8 FATHER Ischemic heart disease G8 MOTHER G8 FATHER H&P Exam Vital Signs/I&O Vital Sign Date Time Temp Pulse Resp B/P (MAP) Pulse Ox O2 Delivery O2 Flow Rate FiO2 06/20/24 13:36 97 Room Air* 0 21 06/20/24 13:36 106 16 06/20/24 12:51 98.1 109/59 (76) 98.1 Intake and Output 06/19/24 06/20/24 19:00 07:00 Intake Total 1060 ml 980 ml Balance 1060 ml 980 ml Intake Oral 800 ml 200 ml IV Total 260 ml 780 ml # Voids 2 2 Physical Exam young male rrr no edema rhochi Labs/Diagnostic Data Labs/Diagnostic Data Laboratory Tests Test 06/20/24 12:50 06/20/24 06:42 06/19/24 10:30 06/19/24 05:41 Range/Units White Blood Count 2.3 L 2.5 L 4.4-10.8 10^3/uL Red Blood Count 4.18 L 4.30 L 4.5-5.90 10^6/uL Hemoglobin 11.4 L 11.7 L 13.5-17.5 g/dL Hematocrit 34.0 L 35.0 L 41.0-53.0 % Mean Corpuscular Volume 81.3 81.4 80.0-100.0 fL Mean Corpuscular Hemoglobin 27.3 L 27.3 L 28.0-32.0 pg Mean Corpuscular Hemoglobin Concent 33.6 33.5 32.0-36.0 g/dL Red Cell Distribution Width 16.4 H 16.0 H 11.8-14.3 % Platelet Count 233 256 140-450 10^3/uL Mean Platelet Volume 9.1 9.5 6.9-10.8 fL Neutrophils (%) (Auto) 70.3 37.0-80.0 % Lymphocytes (%) (Auto) 23.3 10.0-50.0 % Monocytes (%) (Auto) 4.7 0.0-12.0 % Eosinophils (%) (Auto) 0.9 0.0-7.0 % Basophils (%) (Auto) 0.8 0.0-2.0 % Neutrophils # (Auto) 1.6 1.6-8.6 10 ^3/uL Lymphocytes # (Auto) 0.5 0.4-5.4 10 ^3/uL Monocytes # (Auto) 0.1 0-1.3 10 ^3/uL Eosinophils # (Auto) 0 0-0.8 10 ^3/uL Basophils # (Auto) 0 0-0.2 10 ^3/uL Nucleated Red Blood Cells 0.3 % Sodium Level 122 #L 127 L 136-145 mmol/L Potassium Level 4.7 4.9 3.5-5.1 mmol/L Chloride Level 91 L 95 L 98-107 mmol/L Carbon Dioxide Level 24 22 20-31 mmol/L Anion Gap 7 10 5-15 Blood Urea Nitrogen 10 7 L 9-23 mg/dL Creatinine 0.98 0.85 0.700-1.30 mg/dL Glomerular Filtration Rate Calc 108 121 >90 mL/min BUN/Creatinine Ratio 10.2 8.2 L 10.0-20.0 Serum Glucose 92 82 74-106 mg/dL Calcium Level 9.6 9.8 8.7-10.4 mg/dL Urine Sodium 76 40-220 mmol/L Differential Total Cells Counted 100.0 100 Neutrophils % (Manual) 66 37.0-80.0 Band Neutrophils % (Manual) 11 Lymphocytes % (Manual) 16 10.0-50.0 Monocytes % (Manual) 7 0-12 Eosinophils % (Manual) 0 0-7 Basophils % (Manual) 0 0.0-2.0 Metamyelocytes % (manual) 0 Myelocytes % (Manual) 0 Promyelocytes % (Manual) 0 Blast Cells % (Manual) 0 Reactive Lymphocytes 0 Platelet Estimate Adequate Serum Osmolality 269 L 278-298 mOsm/kg Test 06/18/24 17:58 06/17/24 05:26 06/16/24 05:12 06/15/24 10:41 Range/Units Serum Osmolality 282 278-298 mOsm/kg Sodium Level 128 L 130 L 129 L 136-145 mmol/L Potassium Level 4.2 4.5 4.3 3.5-5.1 mmol/L Chloride Level 97 L 99 97 L 98-107 mmol/L Carbon Dioxide Level 21 22 24 20-31 mmol/L Anion Gap 10 9 8 5-15 Blood Urea Nitrogen 6 L 6 L 7 L 9-23 mg/dL Creatinine 0.78 0.72 0.74 0.700-1.30 mg/dL Glomerular Filtration Rate Calc 125 128 127 >90 mL/min BUN/Creatinine Ratio 7.7 L 8.3 L 9.5 L 10.0-20.0 Serum Glucose 101 97 114 H 74-106 mg/dL Calcium Level 9.8 9.6 9.6 8.7-10.4 mg/dL White Blood Count 4.2 L 4.3 L 4.4-10.8 10^3/uL Red Blood Count 4.05 L 3.88 L 4.5-5.90 10^6/uL Hemoglobin 11.2 L 10.5 L 13.5-17.5 g/dL Hematocrit 32.9 L 31.6 L 41.0-53.0 % Mean Corpuscular Volume 81.2 81.4 80.0-100.0 fL Mean Corpuscular Hemoglobin 27.7 L 27.2 L 28.0-32.0 pg Mean Corpuscular Hemoglobin Concent 34.1 33.4 32.0-36.0 g/dL Red Cell Distribution Width 16.1 H 16.0 H 11.8-14.3 % Platelet Count 240 219 140-450 10^3/uL Mean Platelet Volume 9.9 10.3 6.9-10.8 fL Neutrophils (%) (Auto) 65.3 56.4 37.0-80.0 % Lymphocytes (%) (Auto) 22.0 32.0 10.0-50.0 % Monocytes (%) (Auto) 9.3 9.9 0.0-12.0 % Eosinophils (%) (Auto) 3.0 1.3 0.0-7.0 % Basophils (%) (Auto) 0.4 0.4 0.0-2.0 % Neutrophils # (Auto) 2.7 2.4 1.6-8.6 10 ^3/uL Lymphocytes # (Auto) 0.9 1.4 0.4-5.4 10 ^3/uL Monocytes # (Auto) 0.4 0.4 0-1.3 10 ^3/uL Eosinophils # (Auto) 0.1 0.1 0-0.8 10 ^3/uL Basophils # (Auto) 0 0 0-0.2 10 ^3/uL Nucleated Red Blood Cells 0.1 0.0 % Total Bilirubin 0.2 0.2-1.0 mg/dL Aspartate Amino Transferase (AST) 34 13-40 U/L Alanine Aminotransferase (ALT) 29 7-40 U/L Alkaline Phosphatase 112 46-116 U/L Total Protein 8.2 5.7-8.2 g/dL Albumin 4.0 3.2-4.8 g/dL Test 06/14/24 05:26 06/13/24 05:34 06/12/24 20:52 06/12/24 09:00 Range/Units White Blood Count 3.8 L 4.4 # 4.4-10.8 10^3/uL Red Blood Count 3.77 L 3.71 L 4.5-5.90 10^6/uL Hemoglobin 10.3 L 10.3 L 13.5-17.5 g/dL Hematocrit 31.1 L 30.7 #L 41.0-53.0 % Mean Corpuscular Volume 82.7 82.8 80.0-100.0 fL Mean Corpuscular Hemoglobin 27.5 L 27.8 L 28.0-32.0 pg Mean Corpuscular Hemoglobin Concent 33.2 33.5 32.0-36.0 g/dL Red Cell Distribution Width 15.8 H 15.6 H 11.8-14.3 % Platelet Count 187 180 140-450 10^3/uL Mean Platelet Volume 10.2 10.1 6.9-10.8 fL Neutrophils (%) (Auto) 37.0-80.0 % Lymphocytes (%) (Auto) 10.0-50.0 % Monocytes (%) (Auto) 0.0-12.0 % Basophils (%) (Auto) 0.0-2.0 % Neutrophils # (Auto) 1.6-8.6 10 ^3/uL Lymphocytes # (Auto) 0.4-5.4 10 ^3/uL Monocytes # (Auto) 0-1.3 10 ^3/uL Differential Total Cells Counted 100.0 100.0 100 Neutrophils % (Manual) 66 66 37.0-80.0 Band Neutrophils % (Manual) 2 4 Lymphocytes % (Manual) 19 17 10.0-50.0 Monocytes % (Manual) 12 12 0-12 Eosinophils % (Manual) 1 1 0-7 Basophils % (Manual) 0 0 0.0-2.0 Metamyelocytes % (manual) 0 0 Myelocytes % (Manual) 0 0 Promyelocytes % (Manual) 0 0 Blast Cells % (Manual) 0 0 Reactive Lymphocytes 0 0 Platelet Estimate Adequate Adequate Anisocytosis (manual) Slight Reticulocyte Count (auto) 0.50 0.5-1.5 % Sodium Level 133 L 136-145 mmol/L Potassium Level 3.7 3.5-5.1 mmol/L Chloride Level 100 98-107 mmol/L Carbon Dioxide Level 25 20-31 mmol/L Anion Gap 8 5-15 Blood Urea Nitrogen 6 L 9-23 mg/dL Creatinine 0.59 L 0.700-1.30 mg/dL Glomerular Filtration Rate Calc 136 >90 mL/min BUN/Creatinine Ratio 10.2 10.0-20.0 Serum Glucose 93 74-106 mg/dL Calcium Level 9.1 8.7-10.4 mg/dL Total Bilirubin 0.3 0.2-1.0 mg/dL Aspartate Amino Transferase (AST) 39 13-40 U/L Alanine Aminotransferase (ALT) 25 7-40 U/L Alkaline Phosphatase 118 H 46-116 U/L Total Protein 7.7 5.7-8.2 g/dL Albumin 3.7 3.2-4.8 g/dL Urine Color Yellow Yellow Urine Clarity Clear Clear Urine pH 6.5 5.0-9.0 Urine Specific [place] > 1.035 H 1.001-1.035 Urine Protein Trace H Negative Urine Ketones Trace Negative Urine Blood Negative Negative /uL Urine Nitrite Negative Negative Urine Bilirubin Negative Negative Urine Urobilinogen 3 H Negative mg/dL Urine Leukocyte Esterase Negative Negative /uL Urine RBC <1 0 - 3 /hpf Urine WBC 1 0 - 3 /hpf Urine Squamous Epithelial Cells None seen <5 /hpf Urine Bacteria None seen None Seen /hpf Urine Mucus Few None Seen Urine Glucose Normal Normal mg/dL Lactic Acid Level 0.8 0.4-2.0 mmol/L Test 06/12/24 05:40 06/11/24 13:10 06/11/24 06:00 06/10/24 05:42 Range/Units White Blood Count 6.4 6.3 # 4.9 4.4-10.8 10^3/uL Red Blood Count 4.24 L 4.42 L 4.24 L 4.5-5.90 10^6/uL Hemoglobin 11.7 L 12.1 L 11.7 L 13.5-17.5 g/dL Hematocrit 34.9 L 36.4 L 35.0 L 41.0-53.0 % Mean Corpuscular Volume 82.4 82.5 82.4 80.0-100.0 fL Mean Corpuscular Hemoglobin 27.7 L 27.3 L 27.6 L 28.0-32.0 pg Mean Corpuscular Hemoglobin Concent 33.6 33.1 33.5 32.0-36.0 g/dL Red Cell Distribution Width 16.0 H 16.1 H 16.0 H 11.8-14.3 % Platelet Count 233 270 246 140-450 10^3/uL Mean Platelet Volume 10.1 10.0 9.2 6.9-10.8 fL Neutrophils (%) (Auto) 37.0-80.0 % Lymphocytes (%) (Auto) 10.0-50.0 % Monocytes (%) (Auto) 0.0-12.0 % Basophils (%) (Auto) 0.0-2.0 % Neutrophils # (Auto) 1.6-8.6 10 ^3/uL Lymphocytes # (Auto) 0.4-5.4 10 ^3/uL Monocytes # (Auto) 0-1.3 10 ^3/uL Differential Total Cells Counted 100.0 100.0 100.0 100 Neutrophils % (Manual) 71 61 56 37.0-80.0 Band Neutrophils % (Manual) 2 2 10 Lymphocytes % (Manual) 27 25 23 10.0-50.0 Monocytes % (Manual) 0 8 9 0-12 Eosinophils % (Manual) 0 4 2 0-7 Basophils % (Manual) 0 0 0 0.0-2.0 Metamyelocytes % (manual) 0 0 0 Myelocytes % (Manual) 0 0 0 Promyelocytes % (Manual) 0 0 0 Blast Cells % (Manual) 0 0 0 Reactive Lymphocytes 0 0 0 Platelet Estimate Adequate Adequate Adequate Prothrombin Time 11.2 9.3-11.8 sec Prothrombin Time INR 1.06 0.9-1.15 Activated Partial Thromboplast Time 29.3 24.5-34.5 SEC Sodium Level 134 L 133 L 134 L 136-145 mmol/L Potassium Level 4.0 3.9 3.8 3.5-5.1 mmol/L Chloride Level 101 100 102 98-107 mmol/L Carbon Dioxide Level 23 24 25 20-31 mmol/L Anion Gap 10 9 7 5-15 Blood Urea Nitrogen 9 9 8 L 9-23 mg/dL Creatinine 0.62 L 0.66 L 0.60 L 0.700-1.30 mg/dL Glomerular Filtration Rate Calc 134 131 135 >90 mL/min BUN/Creatinine Ratio 14.5 13.6 13.3 10.0-20.0 Serum Glucose 102 96 103 74-106 mg/dL Calcium Level 9.8 9.9 9.6 8.7-10.4 mg/dL Total Bilirubin 0.5 0.6 0.4 0.2-1.0 mg/dL Aspartate Amino Transferase (AST) 37 36 36 13-40 U/L Alanine Aminotransferase (ALT) 29 27 31 7-40 U/L Alkaline Phosphatase 123 H 123 H 121 H 46-116 U/L Total Protein 8.6 H 8.7 H 8.1 5.7-8.2 g/dL Albumin 4.3 4.2 3.9 3.2-4.8 g/dL D-Dimer, Quantitative 1.49 H 0.0-0.49 mg/L FEU Test 06/09/24 23:22 06/09/24 10:26 06/08/24 11:16 Range/Units Legionella pneumophila S1-6 Abs Non reactive Non Reactive Mycoplasma pneumoniae IgG Antibody 395 H 0-99 U/mL Mycoplasma pneumoniae IgM Antibody <770 0-769 U/mL White Blood Count 5.4 5.5 4.4-10.8 10^3/uL Red Blood Count 4.24 L 4.16 L 4.5-5.90 10^6/uL Hemoglobin 11.8 L 11.5 L 13.5-17.5 g/dL Hematocrit 35.0 L 34.3 L 41.0-53.0 % Mean Corpuscular Volume 82.5 82.6 80.0-100.0 fL Mean Corpuscular Hemoglobin 27.9 L 27.7 L 28.0-32.0 pg Mean Corpuscular Hemoglobin Concent 33.8 33.5 32.0-36.0 g/dL Red Cell Distribution Width 15.9 H 15.7 H 11.8-14.3 % Platelet Count 262 253 140-450 10^3/uL Mean Platelet Volume 9.7 9.7 6.9-10.8 fL Neutrophils (%) (Auto) 37.0-80.0 % Lymphocytes (%) (Auto) 10.0-50.0 % Monocytes (%) (Auto) 0.0-12.0 % Basophils (%) (Auto) 0.0-2.0 % Neutrophils # (Auto) 1.6-8.6 10 ^3/uL Lymphocytes # (Auto) 0.4-5.4 10 ^3/uL Monocytes # (Auto) 0-1.3 10 ^3/uL Differential Total Cells Counted 100.0 100.0 100 Neutrophils % (Manual) 62 50 37.0-80.0 Band Neutrophils % (Manual) 2 7 Lymphocytes % (Manual) 21 25 10.0-50.0 Monocytes % (Manual) 9 14 H 0-12 Eosinophils % (Manual) 6 4 0-7 Basophils % (Manual) 0 0 0.0-2.0 Metamyelocytes % (manual) 0 0 Myelocytes % (Manual) 0 0 Promyelocytes % (Manual) 0 0 Blast Cells % (Manual) 0 0 Reactive Lymphocytes 0 0 Platelet Estimate Adequate Adequate Sodium Level 135 L 136 136-145 mmol/L Potassium Level 3.7 3.7 3.5-5.1 mmol/L Chloride Level 101 101 98-107 mmol/L Carbon Dioxide Level 27 27 20-31 mmol/L Anion Gap 7 8 5-15 Blood Urea Nitrogen 9 9 9-23 mg/dL Creatinine 0.61 L 0.60 L 0.700-1.30 mg/dL Glomerular Filtration Rate Calc 134 135 >90 mL/min BUN/Creatinine Ratio 14.8 15.0 10.0-20.0 Serum Glucose 114 H 93 74-106 mg/dL Calcium Level 9.5 9.7 8.7-10.4 mg/dL Total Bilirubin 0.5 0.5 0.2-1.0 mg/dL Aspartate Amino Transferase (AST) 40 45 H 13-40 U/L Alanine Aminotransferase (ALT) 31 30 7-40 U/L Alkaline Phosphatase 119 H 117 H 46-116 U/L Total Protein 8.1 8.1 5.7-8.2 g/dL Albumin 4.0 3.9 3.2-4.8 g/dL HIV-1 Antibody Confirmation Reactive Non Reactive HIV-2 Antibody Confirmation Non reactive Non Reactive HIV (1&2) Ag and Ab, 4th Generation Preliminary reactive Non Reactive HIV (1&2) Antibody Deferred Negative HIV (1&2) Antibody Interpretation Hiv-1 positive H . HIV-1 RNA (PCR) [id number] . copies/mL HIV-1 RNA (PCR) log10 Value 6.294 . Microbiology Date/Time Source Procedure Growth Status 06/14/24 15:30 Sputum Gram Stain - Final Complete 06/14/24 15:30 Sputum Respiratory Culture - Final Complete 06/11/24 13:10 Blood Blood Culture - Final NO GROWTH AFTER 5 DAYS OF INCUBATION. Complete Assessment hyponatremia AIDS PCP on bactrim IV PNA leukopenia IV Bactrim is large volume also noted to be in D5W. See if can be in be in NS and volume reduced. See if po will be tolerated /or effective if unable will give lasix to increase UOP Plan discussed with: Patient BELL BLANK MD Jun 20, 2024 17:01
[2024-06-20] MEDS: SULFAMETHOX W/TRIMETH(800/160MG) DS TAB PO SCH (21:55)
--- NOTE | 2024-06-20 22:25 | DVHPN2 ---
Progress Note - Dictate Date Seen: Jun 20, 2024 Medical Necessity Reason Pt with a Central, PICC or Fol: No Subjective Patient seen and examined at bedside. On room air Overnight events reviewed. vital signs Vital Sign Date Time Temp Pulse Resp B/P (MAP) Pulse Ox O2 Delivery O2 Flow Rate FiO2 06/20/24 22:15 101 18 100 06/20/24 22:09 Room Air* 0 21 06/20/24 18:06 97.7 97.7 06/20/24 17:07 108/63 (78) Total Intake and Output 06/19/24 06/19/24 06/20/24 15:00 23:00 07:00 Intake Total 260 ml 1160 ml 620 ml Balance 260 ml 1160 ml 620 ml medications Current Medications Medications Dose Ordered Sig/Sean Route Start Time Stop Time Status Last Admin Dose Admin Guaifenesin/ Dextromethorphan 10 ml Q4HP PRN PO 06/08/24 11:00 06/18/24 10:27 10 ML Enoxaparin Sodium 40 mg DAILY SC 06/10/24 10:00 06/20/24 10:15 40 MG Albuterol 2.5 mg Q4HR NEB 06/11/24 11:45 06/20/24 22:06 2.5 MG Morphine Sulfate 1 mg Q4HPRN PRN IV 06/16/24 14:00 Acetaminophen/ Hydrocodone Bitart 1 tab Q6HPRN PRN PO 06/16/24 14:00 06/20/24 16:55 1 TAB Acetaminophen 500 mg Q8HP PRN PO 06/16/24 14:00 06/20/24 10:18 500 MG Ondansetron HCl 4 mg Q6HP PRN IV 06/16/24 14:00 06/20/24 12:03 4 MG Docusate Sodium 100 mg BID PRN PO 06/16/24 14:00 Trimethoprim/ Sulfamethoxazole 2 tab TID PO 06/20/24 22:00 06/20/24 21:55 2 TAB objective Gen.: Patient lying in bed in no apparent distress. On room air Head: Normocephalic, atraumatic. Eyes: EOMI/PERRLA. Ears: Normal hearing. Normal anatomy. Neck/trachea: Trachea midline, supple. Nose: Normal external anatomy. Mouth: Moist mucous membranes. Chest: Decreased air entry bilaterally. No wheezing or rhonchi. Cardiovascular: Positive S1, positive S2. Regular rate and rhythm. Abdomen: Positive bowel sounds in all 4 quadrants. Soft, non-tender, non- distended. : Deferred. Rectal: Deferred. Skin: Warm, dry. Intact. Extremities: 2+ radial pulses bilaterally. No lower extremity edema. Neuro: Awake, alert, oriented x3. No gross motor or sensory deficits. Cranial nerves II through XII intact. Gait not assessed. laboratory and microbiology Laboratory Tests 06/20/24 06:42 Test 06/20/24 06:42 Range/Units Serum Glucose 92 74-106 mg/dL Assessment/Plan Impression: Cough HIV (recent diagnosis) Anemia Elevated LFTs Atypical pneumonia Events: Remains on room air Supplemental oxygen PRN Zofran PRN - complaints of nausea Continue antibiotics - Bactrim for PCP of lung Incentive spirometry ID recommendations appreciated. Monitor renal function Monitor electrolytes - supplement as necessary Monitor sodium Get Quantiferon testing - if negative, can D/C isolation for TB. DVT prophylaxis w/ Lovenox Disposition per hospitalist. Labs reviewed. Rest of plan as noted below Plan: On room air Supplemental oxygen PRN Titrate to keep O2 sats above 92%. 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 Monitor electrolytes. Supplement as necessary. Monitor ins and outs. DVT prophylaxis. Prognosis: Poor given patient's multiple co-morbidities. Rest of plan per hospitalist and other consultants. Thank you Dr. Cruz, for allowing me to participate in this patient's care. Further recommendations will depend on the patient's clinical course. Please do not hesitate to contact me if you have any questions or concerns. This medical document was created using an electronic medical record system with [employer] dictation system. Although these documentations are being carefully reviewed, there may still be some phonetic and typographical changes. The errors are purely typographical, due to imperfection on the software program, and do not reflect any compromise in the patient's medical care. Dietary Evaluation Review Comments: Encourage and monitor PO intake to meet 75% of his needs Expected Outcomes/Goals: free from symptoms, gradual weight gain. Plan discussed with: Patient, Other (AALIYAH Davis) ANGELIC OTOOLE MD Jun 20, 2024 22:25
[2024-06-21] VITALS (36 sets, daily range): BP systolic 88–109; BP diastolic 36–61; PULSE 96–135; RESP 13–29; TEMP 98.1–101.5; O2SAT 93–100
[2024-06-21 06:05] LABS: Basophils # (auto) 0 10 ^3/uL (0-0.2); Basophils % (auto) 0.7 % (0.0-2.0); Eosinophils # (auto) 0 10 ^3/uL (0-0.8); Eosinophils % (auto) 0.1 % (0.0-7.0); Hemoglobin 11.7 g/dL (13.5-17.5); Lymphocytes # (auto) 0.7 10 ^3/uL (0.4-5.4); Lymphocytes % (auto) 26.7 % (10.0-50.0); Mean Corpuscular Hemoglobin 27.2 pg (28.0-32.0); Mean Corpuscular Hgb Conc. 33.5 g/dL (32.0-36.0); Mean Corpuscular Volume 81.2 fL (80.0-100.0); Monocytes # (auto) 0.1 10 ^3/uL (0-1.3); Neutrophils # (auto) 1.6 10 ^3/uL (1.6-8.6); Neutrophils % (auto) 66.5 % (37.0-80.0); Nucleated Red Blood Cells % 0.1 %; Platelet Count (auto) 189 10^3/uL (140-450); Red Blood Cells 4.31 10^6/uL (4.5-5.90); Red Cell Distribution Width 16.4 % (11.8-14.3); White Blood Cell 2.5 10^3/uL (4.4-10.8)
[2024-06-21 06:33] LABS: Anion Gap 9 (5-15); Carbon Dioxide 21 mmol/L (20-31)
[2024-06-21 06:35] LABS: Calcium 9.3 mg/dL (8.7-10.4)
[2024-06-21 06:39] LABS: BUN/Creatinine Ratio 13.3 (10.0-20.0); Blood Urea Nitrogen 20 mg/dL (9-23); Chloride 89 mmol/L (98-107); Glucose 78 mg/dL (74-106); Potassium 5.3 mmol/L (3.5-5.1)
[2024-06-21 06:41] LABS: Sodium 119 mmol/L (136-145)
--- NOTE | 2024-06-21 08:00 | DVHPN2 ---
Progress Note Date Seen: Jun 21, 2024 Medical Necessity Reason Pt with a Central, PICC or Fol: No Subjective Patient reports: No new complaints Objective vital signs Vital Sign Date Time Temp Pulse Resp B/P (MAP) Pulse Ox O2 Delivery O2 Flow Rate FiO2 06/21/24 05:00 99.1 132 18 109/61 (77) 93 99.1 06/20/24 22:09 Room Air* 0 21 Total Intake and Output 06/20/24 06/20/24 06/21/24 14:59 22:59 06:59 Intake Total 220 ml 340 ml 250 ml Output Total 525 ml Balance 220 ml 340 ml -275 ml medications Current Medications Medications Dose Ordered Sig/Sean Route Start Time Stop Time Status Last Admin Dose Admin Guaifenesin/ Dextromethorphan 10 ml Q4HP PRN PO 06/08/24 11:00 06/18/24 10:27 10 ML Enoxaparin Sodium 40 mg DAILY SC 06/10/24 10:00 06/20/24 10:15 40 MG Albuterol 2.5 mg Q4HR NEB 06/11/24 11:45 06/20/24 22:06 2.5 MG Morphine Sulfate 1 mg Q4HPRN PRN IV 06/16/24 14:00 Acetaminophen/ Hydrocodone Bitart 1 tab Q6HPRN PRN PO 06/16/24 14:00 06/21/24 04:21 1 TAB Acetaminophen 500 mg Q8HP PRN PO 06/16/24 14:00 06/20/24 10:18 500 MG Ondansetron HCl 4 mg Q6HP PRN IV 06/16/24 14:00 06/21/24 04:25 4 MG Docusate Sodium 100 mg BID PRN PO 06/16/24 14:00 Trimethoprim/ Sulfamethoxazole 2 tab TID PO 06/20/24 22:00 06/21/24 05:16 2 TAB Examination: GENERAL:Abnormal, CVS:Normal laboratory and microbiology Laboratory Tests 06/21/24 05:29 Test 06/21/24 05:29 Range/Units Serum Glucose 78 74-106 mg/dL Microbiology Date/Time Source Procedure Growth Status 06/14/24 15:30 Sputum Gram Stain - Final Complete 06/14/24 15:30 Sputum Respiratory Culture - Final Complete 06/12/24 10:45 Other Pending Resulted 06/12/24 10:45 Other Pending Resulted 06/12/24 10:45 Other Pending Resulted 06/12/24 10:45 Other Pending Resulted 06/12/24 10:45 Other - Final See Separate Report... Resulted 06/11/24 13:10 Blood Blood Culture - Final NO GROWTH AFTER 5 DAYS OF INCUBATION. 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 will give 3% NACL and repeat Na in 3 hours Plan discussed with: Patient My Orders My Orders Orders - BELL BLANK MD Procedure Category Date Status Time Sodium Chl 3% PHA 06/21/24 Transmitted 08:00 Dietary Evaluation Review Comments: Encourage and monitor PO intake to meet 75% of his needs Expected Outcomes/Goals: free from symptoms, gradual weight gain. BELL BLANK MD Jun 21, 2024 08:00
--- NOTE | 2024-06-21 09:44 | DVHPNRES ---
Progress Note Date Seen: Jun 21, 2024 Resident Creating Document: SHEILA RUANO RESIDENT Medical Necessity Reason Pt with a Central, PICC or Fol: No Subjective Review of Systems Reasons for consultation: atypical pneumonia, AIDS Patient reports that shortness of breath has been improved. Bactrim tolerating; sodium is low He had bronchoscopy done on 06/12. Objective vital signs Vital Sign Date Time Temp Pulse Resp B/P (MAP) Pulse Ox O2 Delivery O2 Flow Rate FiO2 06/21/24 09:00 98.2 121 19 98/51 (67) 98 98.2 06/20/24 22:09 Room Air* 0 21 Total Intake and Output 06/20/24 06/20/24 06/21/24 15:00 23:00 07:00 Intake Total 220 ml 340 ml 250 ml Output Total 525 ml Balance 220 ml 340 ml -275 ml medications Current Medications Medications Dose Ordered Sig/Sean Route Start Time Stop Time Status Last Admin Dose Admin Guaifenesin/ Dextromethorphan 10 ml Q4HP PRN PO 06/08/24 11:00 06/18/24 10:27 10 ML Enoxaparin Sodium 40 mg DAILY SC 06/10/24 10:00 06/20/24 10:15 40 MG Albuterol 2.5 mg Q4HR NEB 06/11/24 11:45 06/20/24 22:06 2.5 MG Morphine Sulfate 1 mg Q4HPRN PRN IV 06/16/24 14:00 Acetaminophen/ Hydrocodone Bitart 1 tab Q6HPRN PRN PO 06/16/24 14:00 06/21/24 04:21 1 TAB Acetaminophen 500 mg Q8HP PRN PO 06/16/24 14:00 06/20/24 10:18 500 MG Ondansetron HCl 4 mg Q6HP PRN IV 06/16/24 14:00 06/21/24 04:25 4 MG Docusate Sodium 100 mg BID PRN PO 06/16/24 14:00 Trimethoprim/ Sulfamethoxazole 2 tab TID PO 06/20/24 22:00 06/21/24 05:16 2 TAB Examination General Appearance: Alert, Oriented X3, Cooperative, No acute distress HEENT: Atraumatic Respiratory: Other (Scattered crackles; good air entry bilateral) Cardiovascular: Regular rate, Normal S1, Normal S2 Abdominal: Normal bowel sounds, Soft, No tenderness Neuro: Normal gait, Normal speech, Strength at 5/5 X4 ext, Normal tone, Sensation intact, Cranial nerves 3-12 NL, Reflexes 2+ Psych/Mental Status: Mental status NL, Mood NL laboratory and microbiology Laboratory Tests 06/21/24 05:29 Test 06/21/24 05:29 Range/Units Serum Glucose 78 74-106 mg/dL Microbiology Date/Time Source Procedure Growth Status 06/14/24 15:30 Sputum Gram Stain - Final Complete 06/14/24 15:30 Sputum Respiratory Culture - Final Complete 06/12/24 10:45 Other Pending Resulted 06/12/24 10:45 Other Pending Resulted 06/12/24 10:45 Other Pending Resulted 06/12/24 10:45 Other Pending Resulted 06/12/24 10:45 Other - Final See Separate Report... Resulted 06/11/24 13:10 Blood Blood Culture - Final NO GROWTH AFTER 5 DAYS OF INCUBATION. Complete Problem List/Assessment/Plan Problem List/Assessment/Plan ID Assessment: Patient is a 28-year-old male with hyponatremia, SIADH AIDS Pneumocystis Jerovoci or Carini Pneumonia ( opportunistic infection) multifocal pneumonia: atypical in nature Possible PCP pneumonia pulmonary nodule Homosexual elevated LFT anemia Immunosuppressed ID Plan: Silver stain from BAL for PCP Pneumonia is +ve AFB stain is negative Quantiferon gold: Result pending # Medications: Antibiotic status: D/C IV Bactrim . switched to oral due to SIADH, to complete 21 days course. Bactrim 2 Tab PO TID. Lab: 06/14, Sputum culture showed Normal Oropharyngeal Karina BAL sample to be sent for bacterial, fungal, AFB and viral cultures. follow 06/17/2024 : Chest x-ray showed Bilateral opacities which may reflect multifocal pneumonia. Na+ Level today 119 Others: hyponatremia (SIADH); likely due to bactrim Nephrology on Board switched IV Bactrim to oral, 2 Tab PO TID. Will will give 3% NACL and repeat Na in 3 hours as per nephrology recommendation follow chemistry restrict free water HIV-1 RNA [PCR]: : needs ART therapy will start as outpt Prognosis guarded Thank you so much for the opportunity to consult on your patient. In case of any questions or concerns please feel free to reach out. Case and plan discussed with Dr. Galvan. Complex care planning needed total 21 minutes of detailed discussion. Plan discussed with: Patient Dietary Evaluation Review Comments: Encourage and monitor PO intake to meet 75% of his needs Expected Outcomes/Goals: free from symptoms, gradual weight gain. SEHILA RUANO RESIDENT Jun 21, 2024 09:44
[2024-06-21] MEDS: SODIUM CHL 3% 150 ML IV ONE (09:55)
--- NOTE | 2024-06-21 12:38 | DVHPN2 ---
Subjective Reports Nausea Reviewed: Care Plan, H&P, Labs, Medications, Previous Orders, Radiology, Other (Consultations) Changes from previous H/P or p: No Changes General: No Night Sweats, No Fatigue Neurological: No Weakness, No Numbness Cardiovascular: No Chest Pain Respiratory: Cough, Shortness of breath Gastrointestinal: No Nausea Musculoskeletal: No leg pain Endocrine: No Cold Intolerance Hematology: No Abnormal Bleeding Objective Vitals Vital Signs Date Time Temp Pulse Resp B/P (MAP) Pulse Ox O2 Delivery O2 Flow Rate FiO2 06/21/24 10:55 120 20 100 06/21/24 10:49 Room Air 06/21/24 10:49 0 21 06/21/24 09:00 98.2 98/51 (67) 98.2 Intake/Output Intake and Output 06/21/24 07:00 Intake Total 810 ml Output Total 525 ml Balance 285 ml Intake Oral 810 ml Output Urine Total 525 ml General Appearance: Alert, Oriented X3, Cooperative, moderate distress HEENT: Atraumatic, PERRLA Lungs: Other Cardiovascular: Regular rate, Normal S1, Normal S2, No murmurs Abdomen: Normal bowel sounds, Soft, No tenderness, No hepatospenomegaly Genitourinary: No Apparent Abnormalities Extremities: No edema Neuro: Normal speech, Sensation intact Skin: Dry, Intact Psych/Mental Status: Mental status NL, Mood NL Medications Current Medications Medications Dose Ordered Sig/Sean Route Start Time Stop Time Status Last Admin Dose Admin Guaifenesin/ Dextromethorphan 10 ml Q4HP PRN PO 06/08/24 11:00 06/18/24 10:27 10 ML Enoxaparin Sodium 40 mg DAILY SC 06/10/24 10:00 06/21/24 09:52 40 MG Albuterol 2.5 mg Q4HR NEB 06/11/24 11:45 06/21/24 10:49 2.5 MG Morphine Sulfate 1 mg Q4HPRN PRN IV 06/16/24 14:00 Acetaminophen/ Hydrocodone Bitart 1 tab Q6HPRN PRN PO 06/16/24 14:00 06/21/24 04:21 1 TAB Acetaminophen 500 mg Q8HP PRN PO 06/16/24 14:00 06/20/24 10:18 500 MG Ondansetron HCl 4 mg Q6HP PRN IV 06/16/24 14:00 06/21/24 04:25 4 MG Docusate Sodium 100 mg BID PRN PO 06/16/24 14:00 Trimethoprim/ Sulfamethoxazole 2 tab TID PO 06/20/24 22:00 06/21/24 05:16 2 TAB Laboratory Results Laboratory Tests 06/21/24 05:29 Chemistry Test 06/21/24 05:29 Calcium Level 9.3 mg/dL (8.7-10.4) Urinalysis Test 06/12/24 20:52 06/19/24 10:30 06/20/24 22:24 Urine Color Yellow (Yellow) Urine Clarity Clear (Clear) Urine pH 6.5 (5.0-9.0) Urine Specific Ona > 1.035 (1.001-1.035) Urine Protein Trace (Negative) H Urine Ketones Trace (Negative) Urine Blood Negative /uL (Negative) Urine Nitrite Negative (Negative) Urine Bilirubin Negative (Negative) Urine Urobilinogen 3 mg/dL (Negative) H Urine Leukocyte Esterase Negative /uL (Negative) Urine RBC <1 /hpf (0 - 3) Urine WBC 1 /hpf (0 - 3) Urine Squamous Epithelial Cells None seen /hpf (<5) Urine Bacteria None seen /hpf (None Seen) Urine Mucus Few (None Seen) Urine Glucose Normal mg/dL (Normal) Urine Sodium 76 mmol/L (40-220) Urine Osmolality 485 mOsm/kg Microbiology Microbiology Date/Time Source Procedure Growth Status 06/14/24 15:30 Sputum Gram Stain - Final Complete 06/14/24 15:30 Sputum Respiratory Culture - Final Complete 06/12/24 10:45 Other Pending Resulted 06/12/24 10:45 Other Pending Resulted 06/12/24 10:45 Other Pending Resulted 06/12/24 10:45 Other Pending Resulted 06/12/24 10:45 Other - Final See Separate Report... Resulted 06/11/24 13:10 Blood Blood Culture - Final NO GROWTH AFTER 5 DAYS OF INCUBATION. Complete Labs and/or images reviewed: Labs reviewed by me, Image(s) reviewed by me Assessment/Plan Assessment/Plan Impression: -acute hypoxic respiratory failure -multifocal pneumonia, probable P [place] -rule out tuberculosis -scoliosis -HIV/AIDS : New diagnosis -hyponatremia -rule out SIADH Plan: Events: Patient was serum sodium now 119. Discussed case with both Infectious Disease doctor as well as Nephrology. Patient has transitioned from IV to oral Bactrim. Patient now on 3% saline. -antiemetics -nephrology consultation -free water restriction -continue antibiotics per Infectious Disease doctor. Currently on Bactrim. Monitor for worsening hyponatremia -pain management: Tylenol, [place] -O2 supplementation to keep saturation greater 92% -pulmonary consultation -monitor for results bronchial alveolar wash -repeat labs in a.m. Transfer to step-down ICU Critical care time spent with patient discussing and formulating plan of care: 40 minutes. This does not include time spent performing procedures. This medical document was created using an electronic medical record system with [employer] dictation system. Although this document has been carefully reviewed, there may still be some phonetic and typographical errors. These areas are purely typographical due to imperfections of the software programs, and do not reflect any compromise in the patient's medical care. Plan discussed with: Patient, Other (RN) My Orders Orders - MATTHEW MAURER NP Procedure Category Date Status Time Sulfamethoxazole PHA 06/20/24 In Process W/Trimeth Tab (Bactrim 22:00 Basic Metabolic Panel LAB 06/22/24 Verified 05:00 Basic Metabolic Panel LAB 06/23/24 Verified 05:00 Basic Metabolic Panel LAB 06/24/24 Verified 05:00 Transfer Orders XFER 06/21/24 Transmitted 12:12 Date of Service: Jun 21, 2024 Billing Provider: MATTHEW MAURER NP Common Visit Codes: 40426-[id number] CARE 30-74 MIN MATTHEW MAURER NP Jun 21, 2024 12:38
[2024-06-21] MEDS: SODIUM CHLORIDE 0.9% 1,000 ML IV ONE (14:15)
[2024-06-21] MEDS: diphenhdrAMINE HCL 50 MG/1 ML VL IV ONE (16:00)
[2024-06-21] MEDS: predniSONE 20 MG TAB PO ONE (16:00)
[2024-06-21 16:28] LABS: BUN/Creatinine Ratio 17.1 (10.0-20.0); Glucose 97 mg/dL (74-106)
[2024-06-21 16:30] LABS: Blood Urea Nitrogen 34 mg/dL (9-23); Calcium 8.7 mg/dL (8.7-10.4); Carbon Dioxide 18 mmol/L (20-31)
[2024-06-21 16:31] LABS: Anion Gap 9 (5-15); Chloride 96 mmol/L (98-107); Potassium 5.2 mmol/L (3.5-5.1); Sodium 123 mmol/L (136-145)
[2024-06-21] MEDS: IBUPROFEN 800 MG TAB PO ONE ×2 (17:00→17:25)
[2024-06-21] MEDS: SODIUM CHLORIDE 0.9% 1,000 ML IV SCH (17:25)
[2024-06-21 20:11] LABS: Anion Gap 8 (5-15)
[2024-06-21 20:12] LABS: Calcium 8.8 mg/dL (8.7-10.4)
[2024-06-21 20:16] LABS: Glucose 89 mg/dL (74-106)
[2024-06-21 20:17] LABS: BUN/Creatinine Ratio 17.7 (10.0-20.0)
[2024-06-21 20:18] LABS: Blood Urea Nitrogen 31 mg/dL (9-23); Carbon Dioxide 20 mmol/L (20-31); Chloride 96 mmol/L (98-107); Potassium 5.2 mmol/L (3.5-5.1); Sodium 124 mmol/L (136-145)
--- NOTE | 2024-06-21 22:49 | DVHPN2 ---
Progress Note - Dictate Date Seen: Jun 21, 2024 Medical Necessity Reason Pt with a Central, PICC or Fol: No Subjective Patient seen and examined at bedside. On room air Overnight events reviewed. vital signs Vital Sign Date Time Temp Pulse Resp B/P (MAP) Pulse Ox O2 Delivery O2 Flow Rate FiO2 06/21/24 22:00 99.7 107 14 88/36 (53) 97 99.7 06/21/24 20:00 Room Air* 0 21 Total Intake and Output 06/20/24 06/20/24 06/21/24 15:00 23:00 07:00 Intake Total 220 ml 340 ml 250 ml Output Total 525 ml Balance 220 ml 340 ml -275 ml medications Current Medications Medications Dose Ordered Sig/Sean Route Start Time Stop Time Status Last Admin Dose Admin Guaifenesin/ Dextromethorphan 10 ml Q4HP PRN PO 06/08/24 11:00 06/18/24 10:27 10 ML Enoxaparin Sodium 40 mg DAILY SC 06/10/24 10:00 06/21/24 09:52 40 MG Albuterol 2.5 mg Q4HR NEB 06/11/24 11:45 06/21/24 18:18 2.5 MG Morphine Sulfate 1 mg Q4HPRN PRN IV 06/16/24 14:00 Docusate Sodium 100 mg BID PRN PO 06/16/24 14:00 Trimethoprim/ Sulfamethoxazole 2 tab TID PO 06/20/24 22:00 06/21/24 22:00 2 TAB Ondansetron HCl 4 mg Q4HP PRN IV 06/21/24 16:00 Oxycodone/ Acetaminophen 1 tab Q4HP PRN PO 06/21/24 16:00 Prednisone 40 mg DAILY PO 06/22/24 10:00 06/27/24 09:59 Metoclopramide HCl 10 mg Q8HPRN PRN IV 06/21/24 16:00 Acetaminophen 500 mg Q6HP PRN PO 06/21/24 17:00 Diphenhydramine HCl 25 mg Q6HP PRN PO 06/21/24 17:00 Sodium Chloride 1,000 ml @ 100 mls/hr Q10H IV 06/21/24 17:15 06/21/24 17:25 100 MLS/HR objective Gen.: Patient lying in bed in no apparent distress. On room air Head: Normocephalic, atraumatic. Eyes: EOMI/PERRLA. Ears: Normal hearing. Normal anatomy. Neck/trachea: Trachea midline, supple. Nose: Normal external anatomy. Mouth: Moist mucous membranes. Chest: Decreased air entry bilaterally. No wheezing or rhonchi. Cardiovascular: Positive S1, positive S2. Regular rate and rhythm. Abdomen: Positive bowel sounds in all 4 quadrants. Soft, non-tender, non- distended. : Deferred. Rectal: Deferred. Skin: Warm, dry. Intact. Extremities: 2+ radial pulses bilaterally. No lower extremity edema. Neuro: Awake, alert, oriented x3. No gross motor or sensory deficits. Cranial nerves II through XII intact. Gait not assessed. laboratory and microbiology Laboratory Tests 06/21/24 19:31 06/21/24 05:29 Test 06/21/24 19:31 Range/Units Serum Glucose 89 74-106 mg/dL Assessment/Plan Impression: Cough HIV (recent diagnosis) Anemia Elevated LFTs Atypical pneumonia Events: Remains on room air Supplemental oxygen PRN Patient continues to have nausea Antiemetic- Zofran PRN Obtain CXR to assess for interval changes. Continue antibiotics - Bactrim for PCP of lung Incentive spirometry Follow up ID recommendations Monitor renal function Monitor electrolytes - supplement as necessary Sodium trending down - continue close monitoring Plan for 3% NS. Awaiting Quantiferon testing - if negative, can D/C isolation for TB. DVT prophylaxis w/ Lovenox We will upgrade to STELLA. Labs reviewed. Rest of plan as noted below Plan: On room air Supplemental oxygen PRN Titrate to keep O2 sats above 92%. 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 Monitor electrolytes. Supplement as necessary. Monitor ins and outs. DVT prophylaxis. Prognosis: Poor given patient's multiple co-morbidities. Rest of plan per hospitalist and other consultants. Thank you Dr. Cruz, for allowing me to participate in this patient's care. Further recommendations will depend on the patient's clinical course. Please do not hesitate to contact me if you have any questions or concerns. This medical document was created using an electronic medical record system with [employer] dictation system. Although these documentations are being carefully reviewed, there may still be some phonetic and typographical changes. The errors are purely typographical, due to imperfection on the software program, and do not reflect any compromise in the patient's medical care. Dietary Evaluation Review Comments: Encourage and monitor PO intake to meet 75% of his needs Expected Outcomes/Goals: free from symptoms, gradual weight gain. Plan discussed with: Patient, Other (RN Ehruz) ANGELIC OTOOLE MD Jun 21, 2024 22:48
[2024-06-21] MEDS: SODIUM ZIRCONIUM CYCL 10 GM PAK PO ONE (23:59)
[2024-06-22] VITALS (29 sets, daily range): BP systolic 100–121; BP diastolic 46–71; PULSE 89–118; RESP 12–31; TEMP 97.9–101.8; O2SAT 15–100
[2024-06-22] MEDS: MORPHINE SULFATE INJ 2 MG/ml SYRG IV PRN (02:34)
[2024-06-22 05:49] LABS: Basophils # (auto) 0 10 ^3/uL (0-0.2); Basophils % (auto) 0.4 % (0.0-2.0); Eosinophils # (auto) 0 10 ^3/uL (0-0.8); Hematocrit 31.4 % (41.0-53.0); Hemoglobin 10.3 g/dL (13.5-17.5); Lymphocytes # (auto) 0.4 10 ^3/uL (0.4-5.4); Lymphocytes % (auto) 12.7 % (10.0-50.0); Mean Corpuscular Hemoglobin 27.3 pg (28.0-32.0); Mean Corpuscular Hgb Conc. 32.9 g/dL (32.0-36.0); Monocytes # (auto) 0.1 10 ^3/uL (0-1.3); Monocytes % (auto) 2.7 % (0.0-12.0); Neutrophils # (auto) 2.6 10 ^3/uL (1.6-8.6); Neutrophils % (auto) 84.2 % (37.0-80.0); Nucleated Red Blood Cells % 0.1 %; Platelet Count (auto) 160 10^3/uL (140-450); Red Blood Cells 3.79 10^6/uL (4.5-5.90); Red Cell Distribution Width 16.2 % (11.8-14.3)
[2024-06-22] MEDS: OXYCODONE W/ ACETAMINOPHEN 5/325MG TABLET PO PRN (05:58)
[2024-06-22 05:59] LABS: Calcium 9.4 mg/dL (8.7-10.4); Potassium 4.8 mmol/L (3.5-5.1)
[2024-06-22 06:00] LABS: Anion Gap 9 (5-15)
[2024-06-22 06:05] LABS: BUN/Creatinine Ratio 19.3 (10.0-20.0); Blood Urea Nitrogen 22 mg/dL (9-23); Glucose 95 mg/dL (74-106)
[2024-06-22 06:19] LABS: Carbon Dioxide 18 mmol/L (20-31); Chloride 97 mmol/L (98-107); Sodium 124 mmol/L (136-145)
[2024-06-22] MEDS: predniSONE 20 MG TAB PO SCH (08:33)
--- NOTE | 2024-06-22 08:56 | DVHPN2 ---
Subjective Patient was states that his nausea and fever have resolved. Reviewed: Care Plan, H&P, Labs, Medications, Previous Orders, Radiology, Other (Consultations) Changes from previous H/P or p: No Changes General: No Night Sweats, No Fatigue Neurological: No Weakness, No Numbness Cardiovascular: No Chest Pain Respiratory: Cough, Shortness of breath Gastrointestinal: No Nausea Musculoskeletal: No leg pain Endocrine: No Cold Intolerance Hematology: No Abnormal Bleeding Objective Vitals Vital Signs Date Time Temp Pulse Resp B/P (MAP) Pulse Ox O2 Delivery O2 Flow Rate FiO2 06/22/24 08:00 98.8 98 12 100/46 (64) 209.8 06/22/24 06:37 99 06/22/24 06:37 Room Air* 0 21 Intake/Output Intake and Output 06/22/24 07:00 Intake Total 2765 ml Output Total 1800 ml Balance 965 ml Intake Oral 405 ml IV Total 2360 ml Output Urine Total 1800 ml # Voids 4 General Appearance: Alert, Oriented X3, Cooperative, moderate distress HEENT: Atraumatic, PERRLA Lungs: Other Cardiovascular: Regular rate, Normal S1, Normal S2, No murmurs Abdomen: Normal bowel sounds, Soft, No tenderness, No hepatospenomegaly Genitourinary: No Apparent Abnormalities Extremities: No edema Neuro: Normal speech, Sensation intact Skin: Dry, Intact Psych/Mental Status: Mental status NL, Mood NL Medications Current Medications Medications Dose Ordered Sig/Sean Route Start Time Stop Time Status Last Admin Dose Admin Guaifenesin/ Dextromethorphan 10 ml Q4HP PRN PO 06/08/24 11:00 06/18/24 10:27 10 ML Enoxaparin Sodium 40 mg DAILY SC 06/10/24 10:00 06/22/24 08:34 40 MG Albuterol 2.5 mg Q4HR NEB 06/11/24 11:45 06/22/24 06:37 2.5 MG Morphine Sulfate 1 mg Q4HPRN PRN IV 06/16/24 14:00 06/22/24 02:34 1 MG Docusate Sodium 100 mg BID PRN PO 06/16/24 14:00 Trimethoprim/ Sulfamethoxazole 2 tab TID PO 06/20/24 22:00 06/22/24 05:30 2 TAB Ondansetron HCl 4 mg Q4HP PRN IV 06/21/24 16:00 Oxycodone/ Acetaminophen 1 tab Q4HP PRN PO 06/21/24 16:00 06/22/24 05:58 1 TAB Metoclopramide HCl 10 mg Q8HPRN PRN IV 06/21/24 16:00 Acetaminophen 500 mg Q6HP PRN PO 06/21/24 17:00 Diphenhydramine HCl 25 mg Q6HP PRN PO 06/21/24 17:00 Sodium Chloride 1,000 ml @ 100 mls/hr Q10H IV 06/21/24 17:15 06/22/24 05:30 100 MLS/HR Prednisone 40 mg BID PO 06/22/24 10:00 06/27/24 09:59 06/22/24 08:33 40 MG Laboratory Results Laboratory Tests 06/22/24 05:09 Chemistry Test 06/21/24 15:55 06/21/24 19:31 06/22/24 05:09 Calcium Level 8.7 mg/dL (8.7-10.4) 8.8 mg/dL (8.7-10.4) 9.4 mg/dL (8.7-10.4) Urinalysis Test 06/12/24 20:52 06/19/24 10:30 06/20/24 22:24 Urine Color Yellow (Yellow) Urine Clarity Clear (Clear) Urine pH 6.5 (5.0-9.0) Urine Specific [place] > 1.035 (1.001-1.035) Urine Protein Trace (Negative) H Urine Ketones Trace (Negative) Urine Blood Negative /uL (Negative) Urine Nitrite Negative (Negative) Urine Bilirubin Negative (Negative) Urine Urobilinogen 3 mg/dL (Negative) H Urine Leukocyte Esterase Negative /uL (Negative) Urine RBC <1 /hpf (0 - 3) Urine WBC 1 /hpf (0 - 3) Urine Squamous Epithelial Cells None seen /hpf (<5) Urine Bacteria None seen /hpf (None Seen) Urine Mucus Few (None Seen) Urine Glucose Normal mg/dL (Normal) Urine Sodium 76 mmol/L (40-220) Urine Osmolality 485 mOsm/kg Microbiology Microbiology Date/Time Source Procedure Growth Status 06/14/24 15:30 Sputum Gram Stain - Final Complete 06/14/24 15:30 Sputum Respiratory Culture - Final Complete 06/12/24 10:45 Other Pending Resulted 06/12/24 10:45 Other Pending Resulted 06/12/24 10:45 Other Pending Resulted 06/12/24 10:45 Other Pending Resulted 06/12/24 10:45 Other - Final See Separate Report... Resulted 06/11/24 13:10 Blood Blood Culture - Final NO GROWTH AFTER 5 DAYS OF INCUBATION. Complete Labs and/or images reviewed: Labs reviewed by me, Image(s) reviewed by me Assessment/Plan Assessment/Plan Impression: -acute hypoxic respiratory failure -multifocal pneumonia, probable P TENNILLE -rule out tuberculosis -scoliosis -HIV/AIDS : New diagnosis -hyponatremia -SIADH Plan: Events: Patient was transferred to step-down ICU yesterday. Patient was treated with 3% saline, as well as 0.9% saline by Nephrology. Both renal function and sodium has improved. Patient no longer symptomatic. Patient was started on prednisone 40 mg p.o. twice a day -antiemetics -nephrology consultation -free water restriction -continue antibiotics per Infectious Disease doctor. Currently on Bactrim. Monitor for worsening hyponatremia -pain management: Tylenol, [place] -O2 supplementation to keep saturation greater 92% -pulmonary consultation -monitor for results bronchial alveolar wash -repeat labs in a.m. Transfer to step-down ICU Critical care time spent with patient discussing and formulating plan of care: 40 minutes. This does not include time spent performing procedures. This medical document was created using an electronic medical record system with [employer] dictation system. Although this document has been carefully reviewed, there may still be some phonetic and typographical errors. These areas are purely typographical due to imperfections of the software programs, and do not reflect any compromise in the patient's medical care. Plan discussed with: Patient, Other My Orders Orders - MATTHEW MAURER ASSISTANT PROFESSOR OF ECONOMICS Procedure Category Date Status Time Transfer Orders XFER 06/21/24 Transmitted 12:12 Mrsa Screen [place] 06/21/24 In Process 14:49 Insert Midline ORDERS 06/21/24 Transmitted 15:31 Ondansetron Hcl PHA 06/21/24 In Process (Zofran) 16:00 Oxycodone W/ Acet PHA 06/21/24 In Process 5/325mg Tab (Percocet 16:00 Metoclopramide PHA 06/21/24 In Process Injection (Reglan 16:00 Acetaminophen Tab Or PHA 06/21/24 In Process Cap (Tylenol Tablet 17:00 Diphenhdramine PHA 06/21/24 In Process Capsule (Benadryl 17:00 Prednisone Tablet PHA 06/22/24 In Process 10:00 Date of Service: Jun 22, 2024 Billing Provider: MATTHEW MAURER NP Common Visit Codes: [id number] CARE 30-74 MIN MATTHEW MAURER NP Jun 22, 2024 08:56
[2024-06-22] MEDS ORDERED: predniSONE 20 MG TAB PO SCH (10:00)
--- NOTE | 2024-06-22 10:50 | DVHPNRES ---
Progress Note Date Seen: Jun 22, 2024 Resident Creating Document: SHEILA RUANO RESIDENT Medical Necessity Reason Pt with a Central, PICC or Fol: No Subjective Review of Systems Reasons for consultation: atypical pneumonia, AIDS Patient reports that shortness of breath has been improved. Bactrim tolerating; sodium is low He had bronchoscopy done on 06/12. Objective vital signs Vital Sign Date Time Temp Pulse Resp B/P (MAP) Pulse Ox O2 Delivery O2 Flow Rate FiO2 06/22/24 09:30 99 15 110/56 06/22/24 08:00 98.8 209.8 06/22/24 06:37 99 06/22/24 06:37 Room Air* 0 21 Total Intake and Output 06/21/24 06/21/24 06/22/24 15:00 23:00 07:00 Intake Total 30 ml 1735 ml 1000 ml Output Total 1800 ml Balance 30 ml 1735 ml -800 ml medications Current Medications Medications Dose Ordered Sig/Sean Route Start Time Stop Time Status Last Admin Dose Admin Guaifenesin/ Dextromethorphan 10 ml Q4HP PRN PO 06/08/24 11:00 06/18/24 10:27 10 ML Enoxaparin Sodium 40 mg DAILY SC 06/10/24 10:00 06/22/24 08:34 40 MG Albuterol 2.5 mg Q4HR NEB 06/11/24 11:45 06/22/24 06:37 2.5 MG Morphine Sulfate 1 mg Q4HPRN PRN IV 06/16/24 14:00 06/22/24 09:00 1 MG Docusate Sodium 100 mg BID PRN PO 06/16/24 14:00 Trimethoprim/ Sulfamethoxazole 2 tab TID PO 06/20/24 22:00 06/22/24 05:30 2 TAB Ondansetron HCl 4 mg Q4HP PRN IV 06/21/24 16:00 Oxycodone/ Acetaminophen 1 tab Q4HP PRN PO 06/21/24 16:00 06/22/24 05:58 1 TAB Metoclopramide HCl 10 mg Q8HPRN PRN IV 06/21/24 16:00 Acetaminophen 500 mg Q6HP PRN PO 06/21/24 17:00 Diphenhydramine HCl 25 mg Q6HP PRN PO 06/21/24 17:00 Sodium Chloride 1,000 ml @ 100 mls/hr Q10H IV 06/21/24 17:15 06/22/24 05:30 100 MLS/HR Prednisone 40 mg BID PO 06/22/24 10:00 06/27/24 09:59 06/22/24 08:33 40 MG Examination General Appearance: Alert, Oriented X3, Cooperative, No acute distress HEENT: Atraumatic Respiratory: Other (Scattered crackles; good air entry bilateral) Cardiovascular: Regular rate, Normal S1, Normal S2 Abdominal: Normal bowel sounds, Soft, No tenderness Neuro: Normal gait, Normal speech, Strength at 5/5 X4 ext, Normal tone, Sensation intact, Cranial nerves 3-12 NL, Reflexes 2+ Psych/Mental Status: Mental status NL, Mood NL laboratory and microbiology Laboratory Tests 06/22/24 05:09 Test 06/22/24 05:09 Range/Units Serum Glucose 95 74-106 mg/dL Microbiology Date/Time Source Procedure Growth Status 06/14/24 15:30 Sputum Gram Stain - Final Complete 06/14/24 15:30 Sputum Respiratory Culture - Final Complete 06/12/24 10:45 Other Pending Resulted 06/12/24 10:45 Other Pending Resulted 06/12/24 10:45 Other Pending Resulted 06/12/24 10:45 Other Pending Resulted 06/12/24 10:45 Other - Final See Separate Report... Resulted 06/11/24 13:10 Blood Blood Culture - Final NO GROWTH AFTER 5 DAYS OF INCUBATION. Complete Problem List/Assessment/Plan Problem List/Assessment/Plan ID Assessment: Patient is a 28-year-old male with hyponatremia, SIADH AIDS Pneumocystis Jerovoci or Carini Pneumonia ( opportunistic infection) multifocal pneumonia: atypical in nature Possible PCP pneumonia pulmonary nodule Homosexual elevated LFT anemia Immunosuppressed Hyperkalemia ID Plan: Silver stain from BAL for PCP Pneumonia is +ve AFB stain is negative Quantiferon gold: Result pending # Medications: Antibiotic status: D/C IV Bactrim . switched to oral due to SIADH, to complete 21 days course. Bactrim 2 Tab PO TID. Lab: 06/14, Sputum culture showed Normal Oropharyngeal Karina BAL sample to be sent for bacterial, fungal, AFB and viral cultures. follow 06/17/2024 : Chest x-ray showed Bilateral opacities which may reflect multifocal pneumonia. Na+ Level today 119 Others: hyponatremia (SIADH); likely due to bactrim Nephrology on Board Cont. IV Bactrim to oral, 2 Tab PO TID. Will will give 3% NACL and repeat Na in 3 hours as per nephrology recommendation follow chemistry restrict free water HIV-1 RNA [PCR]: : needs ART therapy will start as outpt Prognosis guarded Thank you so much for the opportunity to consult on your patient. In case of any questions or concerns please feel free to reach out. Case and plan discussed with Dr. Galvan. Complex care planning needed total 24 minutes of detailed discussion. Plan discussed with: Patient Dietary Evaluation Review Comments: Encourage and monitor PO intake to meet 75% of his needs Expected Outcomes/Goals: free from symptoms, gradual weight gain. SHEILA RUANO RESIDENT Jun 22, 2024 10:50
[2024-06-22] MEDS: ACETAMINOPHEN 500 MG TAB or CAP PO PRN (11:06)
[2024-06-22] MEDS: ONDANSETRON HCL 4 MG/2 ML VIAL IV PRN (14:49)
--- NOTE | 2024-06-22 19:56 | DVHPN2 ---
Progress Note Date Seen: Jun 22, 2024 Medical Necessity Reason Pt with a Central, PICC or Fol: No Subjective Patient reports: No new complaints, Other Review of Systems: Deferred Objective vital signs Vital Sign Date Time Temp Pulse Resp B/P (MAP) Pulse Ox O2 Delivery O2 Flow Rate FiO2 06/22/24 19:05 99 18 99 06/22/24 19:00 99.7 121/64 (83) 211.5 06/22/24 18:57 Room Air 06/22/24 18:57 0 21 Total Intake and Output 06/21/24 06/21/24 06/22/24 15:00 23:00 07:00 Intake Total 30 ml 1735 ml 1100 ml Output Total 1800 ml Balance 30 ml 1735 ml -700 ml medications Current Medications Medications Dose Ordered Sig/Sean Route Start Time Stop Time Status Last Admin Dose Admin Guaifenesin/ Dextromethorphan 10 ml Q4HP PRN PO 06/08/24 11:00 06/18/24 10:27 10 ML Enoxaparin Sodium 40 mg DAILY SC 06/10/24 10:00 06/22/24 08:34 40 MG Albuterol 2.5 mg Q4HR NEB 06/11/24 11:45 06/22/24 18:57 2.5 MG Morphine Sulfate 1 mg Q4HPRN PRN IV 06/16/24 14:00 06/22/24 14:48 1 MG Docusate Sodium 100 mg BID PRN PO 06/16/24 14:00 Trimethoprim/ Sulfamethoxazole 2 tab TID PO 06/20/24 22:00 06/22/24 14:34 2 TAB Ondansetron HCl 4 mg Q4HP PRN IV 06/21/24 16:00 06/22/24 14:49 4 MG Oxycodone/ Acetaminophen 1 tab Q4HP PRN PO 06/21/24 16:00 06/22/24 13:05 1 TAB Metoclopramide HCl 10 mg Q8HPRN PRN IV 06/21/24 16:00 Acetaminophen 500 mg Q6HP PRN PO 06/21/24 17:00 06/22/24 11:06 500 MG Diphenhydramine HCl 25 mg Q6HP PRN PO 06/21/24 17:00 Sodium Chloride 1,000 ml @ 100 mls/hr Q10H IV 06/21/24 17:15 06/22/24 15:02 100 MLS/HR Prednisone 40 mg BID PO 06/22/24 10:00 06/27/24 09:59 06/22/24 08:33 40 MG laboratory and microbiology Laboratory Tests 06/22/24 05:09 Test 06/22/24 05:09 Range/Units Serum Glucose 95 74-106 mg/dL Microbiology Date/Time Source Procedure Growth Status 06/21/24 18:18 Blood Blood Culture - Preliminary NO GROWTH AFTER 24 HOURS OF INCUBATION. Resulted 06/21/24 14:30 Nose MRSA Screen - Final Complete 06/14/24 15:30 Sputum Gram Stain - Final Complete 06/14/24 15:30 Sputum Respiratory Culture - Final Complete Problem List/Assessment/Plan Problem List/Assessment/Plan hyponatremia likely secondary to IV Bactrim AIDS PCP on bactrim IV now switch to p.o. PNA leukopenia Recommendations Continue IV fluids Sodium is better Renal function getting better Plan discussed with: Patient Dietary Evaluation Review Comments: Encourage and monitor PO intake to meet 75% of his needs Expected Outcomes/Goals: free from symptoms, gradual weight gain. BAILEE WATTERS MD Jun 22, 2024 19:56
[2024-06-22] MEDS: DOCUSATE SOD 100 MG CAP PO PRN (21:48)
[2024-06-22] MEDS: diphenhdrAMINE HCL 25 MG CAP PO PRN (21:48)
--- NOTE | 2024-06-22 21:59 | DVHPN2 ---
Progress Note - Dictate Date Seen: Jun 22, 2024 Medical Necessity Reason Pt with a Central, PICC or Fol: No Subjective Patient seen and examined at bedside. On room air Overnight events reviewed. vital signs Vital Sign Date Time Temp Pulse Resp B/P (MAP) Pulse Ox O2 Delivery O2 Flow Rate FiO2 06/22/24 21:47 104 20 111/68 06/22/24 19:05 99 06/22/24 19:00 99.7 211.5 06/22/24 18:57 Room Air 06/22/24 18:57 0 21 Total Intake and Output 06/21/24 06/21/24 06/22/24 15:00 23:00 07:00 Intake Total 30 ml 1735 ml 1100 ml Output Total 1800 ml Balance 30 ml 1735 ml -700 ml medications Current Medications Medications Dose Ordered Sig/Sean Route Start Time Stop Time Status Last Admin Dose Admin Guaifenesin/ Dextromethorphan 10 ml Q4HP PRN PO 06/08/24 11:00 06/22/24 21:47 10 ML Enoxaparin Sodium 40 mg DAILY SC 06/10/24 10:00 06/22/24 08:34 40 MG Albuterol 2.5 mg Q4HR NEB 06/11/24 11:45 06/22/24 18:57 2.5 MG Morphine Sulfate 1 mg Q4HPRN PRN IV 06/16/24 14:00 06/22/24 21:47 1 MG Docusate Sodium 100 mg BID PRN PO 06/16/24 14:00 06/22/24 21:48 100 MG Trimethoprim/ Sulfamethoxazole 2 tab TID PO 06/20/24 22:00 06/22/24 21:47 2 TAB Ondansetron HCl 4 mg Q4HP PRN IV 06/21/24 16:00 06/22/24 14:49 4 MG Oxycodone/ Acetaminophen 1 tab Q4HP PRN PO 06/21/24 16:00 06/22/24 13:05 1 TAB Metoclopramide HCl 10 mg Q8HPRN PRN IV 06/21/24 16:00 Acetaminophen 500 mg Q6HP PRN PO 06/21/24 17:00 06/22/24 11:06 500 MG Diphenhydramine HCl 25 mg Q6HP PRN PO 06/21/24 17:00 06/22/24 21:48 25 MG Sodium Chloride 1,000 ml @ 100 mls/hr Q10H IV 06/21/24 17:15 06/22/24 15:02 100 MLS/HR Prednisone 40 mg BID PO 06/22/24 10:00 06/27/24 09:59 06/22/24 21:48 40 MG objective Gen.: Patient lying in bed in no apparent distress. On room air Head: Normocephalic, atraumatic. Eyes: EOMI/PERRLA. Ears: Normal hearing. Normal anatomy. Neck/trachea: Trachea midline, supple. Nose: Normal external anatomy. Mouth: Moist mucous membranes. Chest: Decreased air entry bilaterally. No wheezing or rhonchi. Cardiovascular: Positive S1, positive S2. Regular rate and rhythm. Abdomen: Positive bowel sounds in all 4 quadrants. Soft, non-tender, non- distended. : Deferred. Rectal: Deferred. Skin: Warm, dry. Intact. Extremities: 2+ radial pulses bilaterally. No lower extremity edema. Neuro: Awake, alert, oriented x3. No gross motor or sensory deficits. Cranial nerves II through XII intact. Gait not assessed. laboratory and microbiology Laboratory Tests 06/22/24 05:09 Test 06/22/24 05:09 Range/Units Serum Glucose 95 74-106 mg/dL Assessment/Plan Impression: Cough HIV (recent diagnosis) Anemia Elevated LFTs Atypical pneumonia Events: Remains on room air Supplemental oxygen PRN Antiemetic- Zofran PRN Continue antibiotics - Bactrim for PCP of lung Incentive spirometry ID recommendations appreciated. Pain control Avoid oversedation Monitor renal function Monitor electrolytes - supplement as necessary Sodium is 124 - received 3% NS for 3 hours yesterday. Awaiting Quantiferon testing - if negative, can D/C isolation for TB. DVT prophylaxis w/ Lovenox Labs reviewed. Rest of plan as noted below Plan: On room air Supplemental oxygen PRN Titrate to keep O2 sats above 92%. 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 Monitor electrolytes. Supplement as necessary. Monitor ins and outs. DVT prophylaxis. Prognosis: Poor given patient's multiple co-morbidities. Condition: Critical Rest of plan per hospitalist and other consultants. A total of 35 minutes of critical care time was spent reviewing the patient record, examining the patient, making a diagnostic and therapeutic plan, discussing this plan with the medical personnel, following up on diagnostic studies and following the patient for clinical stability excluding any and all procedures. At least 50% of this time was spent in direct, [id number] contact. Thank you Dr. Cruz, for allowing me to participate in this patient's care. Further recommendations will depend on the patient's clinical course. Please do not hesitate to contact me if you have any questions or concerns. This medical document was created using an electronic medical record system with [employer] computerized dictation system. Although these documentations are being carefully reviewed, there may still be some phonetic and typographical changes. The errors are purely typographical, due to imperfection on the software program, and do not reflect any compromise in the patient's medical care. Dietary Evaluation Review Comments: Encourage and monitor PO intake to meet 75% of his needs Expected Outcomes/Goals: free from symptoms, gradual weight gain. Plan discussed with: Patient, Other (AALIYAH Lopez) Critical Care Time(min): 35 ANGELIC OTOOLE MD Jun 22, 2024 21:59
[2024-06-23] VITALS (72 sets, daily range): BP systolic 88–114; BP diastolic 48–71; PULSE 88–131; RESP 10–43; TEMP 97.3–101.3; O2SAT 95–100
[2024-06-23 04:33] LABS: Anion Gap 7 (5-15); Carbon Dioxide 21 mmol/L (20-31)
[2024-06-23 04:34] LABS: Calcium 9.3 mg/dL (8.7-10.4)
[2024-06-23 04:39] LABS: Blood Urea Nitrogen 15 mg/dL (9-23); Glucose 103 mg/dL (74-106)
[2024-06-23 04:51] LABS: Chloride 91 mmol/L (98-107); Potassium 5.4 mmol/L (3.5-5.1)
[2024-06-23 04:52] LABS: Sodium 119 mmol/L (136-145)
[2024-06-23] MEDS: SODIUM ZIRCONIUM CYCL 10 GM PAK PO ONE (06:32)
[2024-06-23 06:38] LABS: Basophils # (auto) 0 10 ^3/uL (0-0.2); Basophils % (auto) 0.6 % (0.0-2.0); Eosinophils # (auto) 0 10 ^3/uL (0-0.8); Eosinophils % (auto) 0.1 % (0.0-7.0); Hematocrit 31.3 % (41.0-53.0); Hemoglobin 10.5 g/dL (13.5-17.5); Lymphocytes # (auto) 0.3 10 ^3/uL (0.4-5.4); Mean Corpuscular Hemoglobin 27.2 pg (28.0-32.0); Mean Corpuscular Hgb Conc. 33.5 g/dL (32.0-36.0); Mean Corpuscular Volume 81.3 fL (80.0-100.0); Monocytes # (auto) 0.1 10 ^3/uL (0-1.3); Monocytes % (auto) 2.8 % (0.0-12.0); Neutrophils # (auto) 2.4 10 ^3/uL (1.6-8.6); Neutrophils % (auto) 86.5 % (37.0-80.0); Nucleated Red Blood Cells % 0.4 %; Platelet Count (auto) 151 10^3/uL (140-450); Red Blood Cells 3.86 10^6/uL (4.5-5.90); Red Cell Distribution Width 16.3 % (11.8-14.3); White Blood Cell 2.8 10^3/uL (4.4-10.8)
[2024-06-23 11:23] LABS: Urine Bacteria None Seen /hpf (None Seen)
[2024-06-23 11:45] LABS: Urine Blood TRACE /uL (Negative); Urine Clarity Clear (Clear); Urine Color Yellow (Yellow); Urine Protein, UAD TRACE (Negative); Urine Specific Gravity 1.013 (1.001-1.035); Urine Squamous Epithelial Cell None Seen /hpf (<5); Urine Urobilinogen 6 mg/dL (Negative); Urine WBC 1 /hpf (0 - 3); Urine pH 6.5 (5.0-9.0)
[2024-06-23] MEDS: PANTOPRAZOLE 40 MG/10 ML VIAL INJ IV SCH (12:51)
--- NOTE | 2024-06-23 13:56 | DVHPN2 ---
Reviewed: Care Plan, H&P, Labs, Medications, Previous Orders, Radiology, Other (Consultations) Changes from previous H/P or p: No Changes General: No Night Sweats, No Fatigue Neurological: No Weakness, No Numbness Cardiovascular: No Chest Pain Respiratory: Cough, Shortness of breath Gastrointestinal: No Nausea Musculoskeletal: No leg pain Endocrine: No Cold Intolerance Hematology: No Abnormal Bleeding Objective Vitals Vital Signs Date Time Temp Pulse Resp B/P (MAP) Pulse Ox O2 Delivery O2 Flow Rate FiO2 06/23/24 13:30 99.5 106 14 96 211.1 06/23/24 08:57 21 06/23/24 08:00 Room Air* 0 Intake/Output Intake and Output 06/23/24 07:00 Intake Total 3380 ml Output Total 3550 ml Balance -170 ml Intake Oral 1180 ml IV Total 2200 ml Output Urine Total 3550 ml # Voids 2 General Appearance: Alert, Oriented X3, Cooperative, moderate distress HEENT: Atraumatic, PERRLA Lungs: Other Cardiovascular: Regular rate, Normal S1, Normal S2, No murmurs Abdomen: Normal bowel sounds, Soft, No tenderness, No hepatospenomegaly Genitourinary: No Apparent Abnormalities Extremities: No edema Neuro: Normal speech, Sensation intact Skin: Dry, Intact Psych/Mental Status: Mental status NL, Mood NL Medications Current Medications Medications Dose Ordered Sig/Sean Route Start Time Stop Time Status Last Admin Dose Admin Guaifenesin/ Dextromethorphan 10 ml Q4HP PRN PO 06/08/24 11:00 06/18/24 10:27 10 ML Enoxaparin Sodium 40 mg DAILY SC 06/10/24 10:00 06/23/24 09:52 40 MG Albuterol 2.5 mg Q4HR NEB 06/11/24 11:45 06/23/24 10:00 2.5 MG Morphine Sulfate 1 mg Q4HPRN PRN IV 06/16/24 14:00 06/22/24 21:47 1 MG Docusate Sodium 100 mg BID PRN PO 06/16/24 14:00 06/22/24 21:48 100 MG Trimethoprim/ Sulfamethoxazole 2 tab TID PO 06/20/24 22:00 06/23/24 05:36 2 TAB Ondansetron HCl 4 mg Q4HP PRN IV 06/21/24 16:00 06/22/24 14:49 4 MG Oxycodone/ Acetaminophen 1 tab Q4HP PRN PO 06/21/24 16:00 06/23/24 12:51 1 TAB Metoclopramide HCl 10 mg Q8HPRN PRN IV 06/21/24 16:00 Acetaminophen 500 mg Q6HP PRN PO 06/21/24 17:00 06/23/24 09:50 500 MG Diphenhydramine HCl 25 mg Q6HP PRN PO 06/21/24 17:00 Prednisone 40 mg BID PO 06/22/24 10:00 06/27/24 09:59 06/23/24 09:51 40 MG Pantoprazole Sodium 40 mg DAILY IV 06/23/24 12:45 06/23/24 12:51 40 MG Laboratory Results Laboratory Tests 06/23/24 03:52 Chemistry Test 06/23/24 03:52 Calcium Level 9.3 mg/dL (8.7-10.4) Urinalysis Test 06/12/24 20:52 06/19/24 10:30 06/23/24 09:13 Urine Mucus Few (None Seen) Urine Sodium 76 mmol/L (40-220) Urine Color Yellow (Yellow) Urine Clarity Clear (Clear) Urine pH 6.5 (5.0-9.0) Urine Specific [place] 1.013 (1.001-1.035) Urine Protein Trace (Negative) H Urine Ketones Negative (Negative) Urine Blood Trace /uL (Negative) H Urine Nitrite Negative (Negative) Urine Bilirubin 1+ (Negative) Urine Urobilinogen 6 mg/dL (Negative) Urine Leukocyte Esterase Negative /uL (Negative) Urine RBC <1 /hpf (0 - 3) Urine WBC 1 /hpf (0 - 3) Urine Squamous Epithelial Cells None seen /hpf (<5) Urine Bacteria None seen /hpf (None Seen) Urine Osmolality 421 mOsm/kg Urine Glucose Normal mg/dL (Normal) Microbiology Microbiology Date/Time Source Procedure Growth Status 06/21/24 18:18 Blood Blood Culture - Preliminary NO GROWTH AFTER 24 HOURS OF INCUBATION. 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
--- NOTE | 2024-06-23 17:07 | DVHPN2 ---
Progress Note Date Seen: Jun 23, 2024 Medical Necessity Reason Pt with a Central, PICC or Fol: No Subjective Patient reports: Other (fevers) Review of Systems: Deferred Objective vital signs Vital Sign Date Time Temp Pulse Resp B/P (MAP) Pulse Ox O2 Delivery O2 Flow Rate FiO2 06/23/24 15:30 99.1 104 18 99 210.4 06/23/24 08:57 21 06/23/24 08:00 Room Air* 0 Total Intake and Output 06/22/24 06/22/24 06/23/24 15:00 23:00 07:00 Intake Total 1040 ml 1340 ml 1000 ml Output Total 1250 ml 2300 ml Balance 1040 ml 90 ml -1300 ml medications Current Medications Medications Dose Ordered Sig/Sean Route Start Time Stop Time Status Last Admin Dose Admin Guaifenesin/ Dextromethorphan 10 ml Q4HP PRN PO 06/08/24 11:00 06/18/24 10:27 10 ML Enoxaparin Sodium 40 mg DAILY SC 06/10/24 10:00 06/23/24 09:52 40 MG Albuterol 2.5 mg Q4HR NEB 06/11/24 11:45 06/23/24 14:41 2.5 MG Morphine Sulfate 1 mg Q4HPRN PRN IV 06/16/24 14:00 06/22/24 21:47 1 MG Docusate Sodium 100 mg BID PRN PO 06/16/24 14:00 06/22/24 21:48 100 MG Trimethoprim/ Sulfamethoxazole 2 tab TID PO 06/20/24 22:00 06/23/24 15:21 2 TAB Ondansetron HCl 4 mg Q4HP PRN IV 06/21/24 16:00 06/22/24 14:49 4 MG Oxycodone/ Acetaminophen 1 tab Q4HP PRN PO 06/21/24 16:00 06/23/24 12:51 1 TAB Metoclopramide HCl 10 mg Q8HPRN PRN IV 06/21/24 16:00 Acetaminophen 500 mg Q6HP PRN PO 06/21/24 17:00 06/23/24 09:50 500 MG Diphenhydramine HCl 25 mg Q6HP PRN PO 06/21/24 17:00 Prednisone 40 mg BID PO 06/22/24 10:00 06/27/24 09:59 06/23/24 09:51 40 MG Pantoprazole Sodium 40 mg DAILY IV 06/23/24 12:45 06/23/24 12:51 40 MG Urea 15 gm BID PO 06/23/24 17:15 UNV Examination: LUNGS:Abnormal, MSK:Abnormal, NEURO:Normal laboratory and microbiology Laboratory Tests 06/23/24 03:52 Test 06/23/24 03:52 Range/Units Serum Glucose 103 74-106 mg/dL Microbiology Date/Time Source Procedure Growth Status 06/21/24 18:18 Blood Blood Culture - Preliminary NO GROWTH AFTER 24 HOURS OF INCUBATION. Resulted 06/21/24 14:30 Nose MRSA Screen - Final Complete 06/14/24 15:30 Sputum Gram Stain - Final Complete 06/14/24 15:30 Sputum Respiratory Culture - Final Complete Problem List/Assessment/Plan Problem List/Assessment/Plan hyponatremia likely secondary to IV Bactrim +siadh AIDS PCP on bactrim IV now switched to p.o. PNA leukopenia Recommendations dc ivf trial of simms as ordered lasix 1 dose for kaliuresis Renal function getting better Plan discussed with: Patient My Orders My Orders Orders - BAILEE WATTERS MD Procedure Category Date Status Time Regular Diet DIET 06/23/24 Transmitted Breakfast Pantoprazole PHA 06/23/24 In Process (Protonix) 12:45 Urea (Ure-Na) PHA 06/23/24 Logged 17:15 Furosemide Injection PHA 06/23/24 Logged (Lasix Injection) 17:15 Dietary Evaluation Review Comments: Encourage and monitor PO intake to meet 75% of his needs Expected Outcomes/Goals: free from symptoms, gradual weight gain. BAILEE WATTERS MD Jun 23, 2024 17:07
--- NOTE | 2024-06-23 17:57 | DVHPN2 ---
Progress Note - Dictate Date Seen: Jun 23, 2024 Medical Necessity Reason Pt with a Central, PICC or Fol: No Subjective fever has improved Bactrim tolerating; sodium is low He had bronchoscopy done on 06/12. vital signs Vital Sign Date Time Temp Pulse Resp B/P (MAP) Pulse Ox O2 Delivery O2 Flow Rate FiO2 06/23/24 15:30 99.1 104 18 99 210.4 06/23/24 08:57 21 06/23/24 08:00 Room Air* 0 Total Intake and Output 06/22/24 06/22/24 06/23/24 15:00 23:00 07:00 Intake Total 1040 ml 1340 ml 1000 ml Output Total 1250 ml 2300 ml Balance 1040 ml 90 ml -1300 ml medications Current Medications Medications Dose Ordered Sig/Sean Route Start Time Stop Time Status Last Admin Dose Admin Guaifenesin/ Dextromethorphan 10 ml Q4HP PRN PO 06/08/24 11:00 06/18/24 10:27 10 ML Enoxaparin Sodium 40 mg DAILY SC 06/10/24 10:00 06/23/24 09:52 40 MG Albuterol 2.5 mg Q4HR NEB 06/11/24 11:45 06/23/24 14:41 2.5 MG Morphine Sulfate 1 mg Q4HPRN PRN IV 06/16/24 14:00 06/22/24 21:47 1 MG Docusate Sodium 100 mg BID PRN PO 06/16/24 14:00 06/22/24 21:48 100 MG Trimethoprim/ Sulfamethoxazole 2 tab TID PO 06/20/24 22:00 06/23/24 15:21 2 TAB Ondansetron HCl 4 mg Q4HP PRN IV 06/21/24 16:00 06/22/24 14:49 4 MG Oxycodone/ Acetaminophen 1 tab Q4HP PRN PO 06/21/24 16:00 06/23/24 12:51 1 TAB Metoclopramide HCl 10 mg Q8HPRN PRN IV 06/21/24 16:00 Acetaminophen 500 mg Q6HP PRN PO 06/21/24 17:00 06/23/24 09:50 500 MG Diphenhydramine HCl 25 mg Q6HP PRN PO 06/21/24 17:00 Prednisone 40 mg BID PO 06/22/24 10:00 06/27/24 09:59 06/23/24 09:51 40 MG Pantoprazole Sodium 40 mg DAILY IV 06/23/24 12:45 06/23/24 12:51 40 MG Urea 15 gm BID PO 06/23/24 17:15 objective General Appearance: Alert, Oriented X3, Cooperative, No acute distress HEENT: Atraumatic Respiratory: Other (Scattered crackles; good air entry bilateral) Cardiovascular: Regular rate, Normal S1, Normal S2 Abdominal: Normal bowel sounds, Soft, No tenderness Neuro: Normal gait, Normal speech, Strength at 5/5 X4 ext, Normal tone, Sensation intact, Cranial nerves 3-12 NL, Reflexes 2+ Psych/Mental Status: Mental status NL, Mood NL laboratory and microbiology Laboratory Tests 06/23/24 03:52 Test 06/23/24 03:52 Range/Units Serum Glucose 103 74-106 mg/dL Assessment/Plan Patient is a 28-year-old male with # hyponatremia SIADH AIDS Pneumocystis Jerovoci or Carini Pneumonia ( opportunistic infection) multifocal pneumonia: atypical in nature Possible PCP pneumonia pulmonary nodule Homosexual elevated LFT anemia Immunosuppressed Recommendations Bactrim switched to oral Stop date is 07/04/2024, following which we will switch to prophylaxis dose severe hyponatremia, nephrology on board IVF stopped Discussed with Pathologist Dr Garcia, Silver stain from BAL for PCP Pneumonia is +ve AFB stain is negative follow Quantiferon gold, new blood cultures no growth to date HIV-1 RNA [PCR]: [id number]: needs ART therapy will start as outpt BAL sample to be sent for bacterial, fungal, AFB and viral cultures. follow 06/17/2024 : Chest x-ray showed Bilateral opacities which may reflect multifocal pneumonia. Prognosis guarded Thank you for consult Dietary Evaluation Review Comments: Encourage and monitor PO intake to meet 75% of his needs Expected Outcomes/Goals: free from symptoms, gradual weight gain. Plan discussed with: Other HOMERO VIGIL MD Jun 23, 2024 17:57
[2024-06-23] MEDS: FUROSEMIDE 40 MG/4 ML VIAL IV ONE (18:15)
[2024-06-23] MEDS: UREA 15gm PO Powder PKG PO SCH (18:16)
--- NOTE | 2024-06-23 20:18 | ECG ---
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
[2024-06-23] MEDS: METOCLOPRAMIDE HCL 5MG/ml INJ 2ml VIAL IV PRN (21:15)
[2024-06-23] MEDS ORDERED: MORPHINE SULFATE 4 MG/ML SYR/VIAL IV PRN (21:15)
--- NOTE | 2024-06-23 23:03 | DVHPN2 ---
Progress Note - Dictate Date Seen: Jun 23, 2024 Medical Necessity Reason Pt with a Central, PICC or Fol: No Subjective Patient seen and examined at bedside. On room air Overnight events reviewed. vital signs Vital Sign Date Time Temp Pulse Resp B/P (MAP) Pulse Ox O2 Delivery O2 Flow Rate FiO2 06/23/24 18:30 99.0 113 17 98 210.2 06/23/24 18:12 Room Air 06/23/24 18:12 0 21 Total Intake and Output 06/22/24 06/22/24 06/23/24 15:00 23:00 07:00 Intake Total 1040 ml 1340 ml 1000 ml Output Total 1250 ml 2300 ml Balance 1040 ml 90 ml -1300 ml medications Current Medications Medications Dose Ordered Sig/Sean Route Start Time Stop Time Status Last Admin Dose Admin Guaifenesin/ Dextromethorphan 10 ml Q4HP PRN PO 06/08/24 11:00 06/18/24 10:27 10 ML Enoxaparin Sodium 40 mg DAILY SC 06/10/24 10:00 06/23/24 09:52 40 MG Albuterol 2.5 mg Q4HR NEB 06/11/24 11:45 06/23/24 18:12 2.5 MG Morphine Sulfate 1 mg Q4HPRN PRN IV 06/16/24 14:00 06/22/24 21:47 1 MG Docusate Sodium 100 mg BID PRN PO 06/16/24 14:00 06/22/24 21:48 100 MG Trimethoprim/ Sulfamethoxazole 2 tab TID PO 06/20/24 22:00 06/23/24 21:38 2 TAB Ondansetron HCl 4 mg Q4HP PRN IV 06/21/24 16:00 06/22/24 14:49 4 MG Oxycodone/ Acetaminophen 1 tab Q4HP PRN PO 06/21/24 16:00 06/23/24 20:50 1 TAB Metoclopramide HCl 10 mg Q8HPRN PRN IV 06/21/24 16:00 06/23/24 21:15 10 MG Acetaminophen 500 mg Q6HP PRN PO 06/21/24 17:00 06/23/24 09:50 500 MG Diphenhydramine HCl 25 mg Q6HP PRN PO 06/21/24 17:00 Prednisone 40 mg BID PO 06/22/24 10:00 06/27/24 09:59 06/23/24 21:38 40 MG Pantoprazole Sodium 40 mg DAILY IV 06/23/24 12:45 06/23/24 12:51 40 MG Urea 15 gm BID PO 06/23/24 17:15 06/23/24 21:38 15 GM Morphine Sulfate 2 mg Q30MP PRN IV 06/23/24 21:15 objective Gen.: Patient lying in bed in no apparent distress. On room air Head: Normocephalic, atraumatic. Eyes: EOMI/PERRLA. Ears: Normal hearing. Normal anatomy. Neck/trachea: Trachea midline, supple. Nose: Normal external anatomy. Mouth: Moist mucous membranes. Chest: Decreased air entry bilaterally. No wheezing or rhonchi. Cardiovascular: Positive S1, positive S2. Regular rate and rhythm. Abdomen: Positive bowel sounds in all 4 quadrants. Soft, non-tender, non- distended. : Deferred. Rectal: Deferred. Skin: Warm, dry. Intact. Extremities: 2+ radial pulses bilaterally. No lower extremity edema. Neuro: Awake, alert, oriented x3. No gross motor or sensory deficits. Cranial nerves II through XII intact. Gait not assessed. laboratory and microbiology Laboratory Tests 06/23/24 21:41 06/23/24 03:52 Test 06/23/24 03:52 Range/Units Serum Glucose 103 74-106 mg/dL Assessment/Plan Impression: Cough HIV (recent diagnosis) Anemia Elevated LFTs Atypical pneumonia Events: Remains on room air Supplemental oxygen PRN Continue antibiotics - Bactrim for PCP of lung Incentive spirometry ID recommendations appreciated. WBC trending down. Patient is having on and off fever. Continue steroids - prednisone PO Pain control Avoid oversedation Monitor renal function Monitor electrolytes - supplement as necessary Hyponatremia w/ sodium 119 - f/u Nephrology recommendations Awaiting Quantiferon testing - if negative, can D/C isolation for TB. DVT prophylaxis w/ Lovenox Labs reviewed. Rest of plan as noted below Plan: On room air Supplemental oxygen PRN Titrate to keep O2 sats above 92%. 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 Monitor electrolytes. Supplement as necessary. Monitor ins and outs. DVT prophylaxis. Prognosis: Poor given patient's multiple co-morbidities. Condition: Critical Rest of plan per hospitalist and other consultants. A total of 35 minutes of critical care time was spent reviewing the patient record, examining the patient, making a diagnostic and therapeutic plan, discussing this plan with the medical personnel, following up on diagnostic studies and following the patient for clinical stability excluding any and all procedures. At least 50% of this time was spent in direct, [id number] contact. Thank you Dr. Cruz, for allowing me to participate in this patient's care. Further recommendations will depend on the patient's clinical course. Please do not hesitate to contact me if you have any questions or concerns. This medical document was created using an electronic medical record system with [employer] dictation system. Although these documentations are being carefully reviewed, there may still be some phonetic and typographical changes. The errors are purely typographical, due to imperfection on the software program, and do not reflect any compromise in the patient's medical care. Dietary Evaluation Review Comments: Encourage and monitor PO intake to meet 75% of his needs Expected Outcomes/Goals: free from symptoms, gradual weight gain. Plan discussed with: Patient, Other (AALIYAH Arana) ANGELIC OTOOLE MD Jun 23, 2024 23:03
[2024-06-24] VITALS (22 sets, daily range): BP systolic 103–121; BP diastolic 54–67; PULSE 87–128; RESP 15–20; TEMP 97.3–98.5; O2SAT 95–100
[2024-06-24] MEDS: SODIUM CHLORIDE 1 GM TAB PO ONE (00:39)
[2024-06-24 07:03] LABS: Albumin 3.7 g/dL (3.2-4.8); Anion Gap 9 (5-15); BUN/Creatinine Ratio 48.1 (10.0-20.0); Calcium 9.6 mg/dL (8.7-10.4); Magnesium 2.6 mg/dL (1.6-2.6); Total Protein 8.1 g/dL (5.7-8.2)
[2024-06-24 07:06] LABS: QuantiFERON-TB Gold Plus Indeterminate (Negative)
[2024-06-24 07:12] LABS: Mean Corpuscular Volume 80.5 fL (80.0-100.0); Platelet Count (auto) 145 10^3/uL (140-450)
[2024-06-24 07:15] LABS: Hematocrit 31.8 % (41.0-53.0); Hemoglobin 10.7 g/dL (13.5-17.5); Mean Corpuscular Hemoglobin 27.2 pg (28.0-32.0); Mean Corpuscular Hgb Conc. 33.7 g/dL (32.0-36.0); Red Blood Cells 3.95 10^6/uL (4.5-5.90); Red Cell Distribution Width 16.8 % (11.8-14.3)
[2024-06-24 07:41] LABS: White Blood Cell 1.8 10^3/uL (4.4-10.8)
[2024-06-24 07:42] LABS: Basophils % (manual) 0 (0.0-2.0); Blast Cells 0; Eosinophils % (manual) 0 (0-7); Metamyelocytes % 0; Myelocytes % 0; Promyelocytes % 0; Reactive Lymphocytes 0
[2024-06-24 07:57] LABS: Alanine Aminotransferase 1321 U/L (7-40); Alkaline Phosphatase 482 U/L (46-116); Aspartate Aminotransferase 2516 U/L (13-40); Bilirubin, Total 4.5 mg/dL (0.2-1.0); Blood Urea Nitrogen 39 mg/dL (9-23); Carbon Dioxide 20 mmol/L (20-31); Chloride 90 mmol/L (98-107); Glucose 112 mg/dL (74-106); Potassium 5.1 mmol/L (3.5-5.1)
[2024-06-24 07:58] LABS: Sodium 119 mmol/L (136-145)
--- NOTE | 2024-06-24 08:02 | ECG ---
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
[2024-06-24 09:03] LABS: Band Neutrophils % (manual) 8; Lymphocytes % (manual) 10 (10.0-50.0); Monocytes % (manual) 3 (0-12)
[2024-06-24 09:05] LABS: Platelet Estimate Adequate
[2024-06-24 09:06] LABS: Anisocytosis Slight; Ovalocytes FEW
--- NOTE | 2024-06-24 10:07 | DVHPN2 ---
Reviewed: Care Plan, H&P, Labs, Medications, Previous Orders, Radiology, Other (Consultations) Changes from previous H/P or p: No Changes General: No Night Sweats, No Fatigue Neurological: No Weakness, No Numbness Cardiovascular: No Chest Pain Respiratory: Cough, Shortness of breath Gastrointestinal: No Nausea Musculoskeletal: No leg pain Endocrine: No Cold Intolerance Hematology: No Abnormal Bleeding Objective Vitals Vital Signs Date Time Temp Pulse Resp B/P (MAP) Pulse Ox O2 Delivery O2 Flow Rate FiO2 06/24/24 09:43 110 16 100 06/24/24 09:37 Room Air* 0 21 06/24/24 05:00 98.0 112/56 (74) 98.0 Intake/Output Intake and Output 06/24/24 07:00 Intake Total 900 ml Output Total 1650 ml Balance -750 ml Intake Oral 900 ml Output Urine Total 1350 ml Emesis 300 ml General Appearance: Alert, Oriented X3, Cooperative, moderate distress HEENT: Atraumatic, PERRLA Lungs: Other Cardiovascular: Regular rate, Normal S1, Normal S2, No murmurs Abdomen: Normal bowel sounds, Soft, No tenderness, No hepatospenomegaly Genitourinary: No Apparent Abnormalities Extremities: No edema Neuro: Normal speech, Sensation intact Skin: Dry, Intact Psych/Mental Status: Mental status NL, Mood NL Medications Current Medications Medications Dose Ordered Sig/Sean Route Start Time Stop Time Status Last Admin Dose Admin Guaifenesin/ Dextromethorphan 10 ml Q4HP PRN PO 06/08/24 11:00 06/18/24 10:27 10 ML Enoxaparin Sodium 40 mg DAILY SC 06/10/24 10:00 06/23/24 09:52 40 MG Albuterol 2.5 mg Q4HR NEB 06/11/24 11:45 06/24/24 09:37 2.5 MG Morphine Sulfate 1 mg Q4HPRN PRN IV 06/16/24 14:00 06/22/24 21:47 1 MG Docusate Sodium 100 mg BID PRN PO 06/16/24 14:00 06/22/24 21:48 100 MG Trimethoprim/ Sulfamethoxazole 2 tab TID PO 06/20/24 22:00 06/24/24 05:43 2 TAB Ondansetron HCl 4 mg Q4HP PRN IV 06/21/24 16:00 06/24/24 01:25 4 MG Oxycodone/ Acetaminophen 1 tab Q4HP PRN PO 06/21/24 16:00 06/24/24 01:25 1 TAB Metoclopramide HCl 10 mg Q8HPRN PRN IV 06/21/24 16:00 06/23/24 21:15 10 MG Acetaminophen 500 mg Q6HP PRN PO 06/21/24 17:00 06/23/24 09:50 500 MG Diphenhydramine HCl 25 mg Q6HP PRN PO 06/21/24 17:00 Prednisone 40 mg BID PO 06/22/24 10:00 06/27/24 09:59 06/23/24 21:38 40 MG Pantoprazole Sodium 40 mg DAILY IV 06/23/24 12:45 06/23/24 12:51 40 MG Urea 15 gm BID PO 06/23/24 17:15 06/23/24 21:38 15 GM Morphine Sulfate 2 mg Q30MP PRN IV 06/23/24 21:15 Laboratory Results Laboratory Tests 06/24/24 05:27 Chemistry Test 06/24/24 05:27 Albumin 3.7 g/dL (3.2-4.8) Calcium Level 9.6 mg/dL (8.7-10.4) Magnesium Level 2.6 mg/dL (1.6-2.6) Total Protein 8.1 g/dL (5.7-8.2) LFT Test 06/24/24 05:27 Alanine Aminotransferase (ALT) 1321 U/L (7-40) H Alkaline Phosphatase 482 U/L (46-116) H Aspartate Amino Transferase (AST) 2516 U/L (13-40) H Total Bilirubin 4.5 mg/dL (0.2-1.0) H Urinalysis Test 06/12/24 20:52 06/19/24 10:30 06/23/24 09:13 Urine Mucus Few (None Seen) Urine Sodium 76 mmol/L (40-220) Urine Color Yellow (Yellow) Urine Clarity Clear (Clear) Urine pH 6.5 (5.0-9.0) Urine Specific [place] 1.013 (1.001-1.035) Urine Protein Trace (Negative) H Urine Ketones Negative (Negative) Urine Blood Trace /uL (Negative) H Urine Nitrite Negative (Negative) Urine Bilirubin 1+ (Negative) Urine Urobilinogen 6 mg/dL (Negative) Urine Leukocyte Esterase Negative /uL (Negative) Urine RBC <1 /hpf (0 - 3) Urine WBC 1 /hpf (0 - 3) Urine Squamous Epithelial Cells None seen /hpf (<5) Urine Bacteria None seen /hpf (None Seen) Urine Osmolality 421 mOsm/kg Urine Glucose Normal mg/dL (Normal) Microbiology Microbiology Date/Time Source Procedure Growth Status 06/21/24 18:18 Blood Blood Culture - Preliminary NO GROWTH AFTER 48 HOURS OF INCUBATION. Resulted 06/21/24 14:30 Nose MRSA Screen - Final Complete 06/14/24 15:30 Sputum Gram Stain - Final Complete 06/14/24 15:30 Sputum Respiratory Culture - Final Complete Labs and/or images reviewed: Labs reviewed by me, Image(s) reviewed by me Assessment/Plan Assessment/Plan -covering for WAF[employer] TESTER Blake sullivan acute hypoxic respiratory failure -multifocal pneumonia, probable P [place] -rule out tuberculosis -scoliosis -HIV/AIDS : New diagnosis -hyponatremia -SIADH Continue Current management Time spent 45 minutes Seen in [facility] Plan discussed with: Patient Date of Service: Jun 24, 2024 Billing Provider: ANKITA JOHN MD Common Visit Codes: [id number] INP/OBS CARE(HIGH) ANKITA JOHN MD Jun 24, 2024 10:07
--- NOTE | 2024-06-24 14:01 | DVHPN2 ---
Progress Note Date Seen: Jun 24, 2024 Medical Necessity Reason Pt with a Central, PICC or Fol: No Subjective Patient reports: No new complaints Review of Systems: Deferred Objective vital signs Vital Sign Date Time Temp Pulse Resp B/P (MAP) Pulse Ox O2 Delivery O2 Flow Rate FiO2 06/24/24 13:21 98.1 128 17 115/54 (74) 96 98.1 06/24/24 09:37 Room Air* 0 21 Total Intake and Output 06/23/24 06/23/24 06/24/24 15:00 23:00 07:00 Intake Total 800 ml 100 ml Output Total 1650 ml 0 ml Balance -850 ml 100 ml medications Current Medications Medications Dose Ordered Sig/Sean Route Start Time Stop Time Status Last Admin Dose Admin Guaifenesin/ Dextromethorphan 10 ml Q4HP PRN PO 06/08/24 11:00 06/18/24 10:27 10 ML Enoxaparin Sodium 40 mg DAILY SC 06/10/24 10:00 06/24/24 10:25 40 MG Albuterol 2.5 mg Q4HR NEB 06/11/24 11:45 06/24/24 09:37 2.5 MG Morphine Sulfate 1 mg Q4HPRN PRN IV 06/16/24 14:00 06/22/24 21:47 1 MG Docusate Sodium 100 mg BID PRN PO 06/16/24 14:00 06/22/24 21:48 100 MG Trimethoprim/ Sulfamethoxazole 2 tab TID PO 06/20/24 22:00 06/24/24 05:43 2 TAB Ondansetron HCl 4 mg Q4HP PRN IV 06/21/24 16:00 06/24/24 01:25 4 MG Oxycodone/ Acetaminophen 1 tab Q4HP PRN PO 06/21/24 16:00 06/24/24 01:25 1 TAB Metoclopramide HCl 10 mg Q8HPRN PRN IV 06/21/24 16:00 06/23/24 21:15 10 MG Acetaminophen 500 mg Q6HP PRN PO 06/21/24 17:00 06/23/24 09:50 500 MG Diphenhydramine HCl 25 mg Q6HP PRN PO 06/21/24 17:00 Prednisone 40 mg BID PO 06/22/24 10:00 06/27/24 09:59 06/24/24 10:25 40 MG Pantoprazole Sodium 40 mg DAILY IV 06/23/24 12:45 06/24/24 10:25 40 MG Urea 15 gm BID PO 06/23/24 17:15 06/24/24 11:39 15 GM Morphine Sulfate 2 mg Q30MP PRN IV 06/23/24 21:15 Examination: GENERAL:Normal, LUNGS:Abnormal, ABDOMEN:Abnormal, MSK:Normal, SKIN:Abnormal, NEURO:Normal, :Normal laboratory and microbiology Laboratory Tests 06/24/24 05:27 Test 06/24/24 05:27 Range/Units Serum Glucose 112 H 74-106 mg/dL Microbiology Date/Time Source Procedure Growth Status 06/21/24 18:18 Blood Blood Culture - Preliminary NO GROWTH AFTER 48 HOURS OF INCUBATION. Resulted 06/21/24 14:30 Nose MRSA Screen - Final Complete 06/14/24 15:30 Sputum Gram Stain - Final Complete 06/14/24 15:30 Sputum Respiratory Culture - Final Complete Problem List/Assessment/Plan Problem List/Assessment/Plan hyponatremia likely secondary to IV Bactrim +possible siadh hyperkalemia AIDS PCP on bactrim IV now switched to p.o. PNA leukopenia Recommendations 3% saline for 250ml only k is better got 3 doses of simms ,,, Na is still 119 today --willl hold simms and give 3 % saline Plan discussed with: Patient, Other My Orders My Orders Orders - BAILEE WATTERS MD Procedure Category Date Status Time Sodium LAB 06/24/24 Logged 13:55 Sodium Chl 3% PHA 06/24/24 Transmitted 14:00 Dietary Evaluation Review Comments: Encourage and monitor PO intake to meet 75% of his needs Expected Outcomes/Goals: free from symptoms, gradual weight gain. BAILEE WATTERS MD Jun 24, 2024 14:01
[2024-06-24] MEDS: SODIUM CHL 3% 250 ML IV ONE (15:02)
--- NOTE | 2024-06-24 21:31 | DVHPN2 ---
Progress Note - Dictate Date Seen: Jun 24, 2024 Medical Necessity Reason Pt with a Central, PICC or Fol: No Subjective Patient seen and examined at bedside. On room air Overnight events reviewed. vital signs Vital Sign Date Time Temp Pulse Resp B/P (MAP) Pulse Ox O2 Delivery O2 Flow Rate FiO2 06/24/24 20:00 Room Air* 0 21 06/24/24 18:35 97 06/24/24 18:34 101 20 06/24/24 17:04 98.2 108/54 (72) 98.2 Total Intake and Output 06/23/24 06/23/24 06/24/24 14:59 22:59 06:59 Intake Total 800 ml 100 ml Output Total 1650 ml 0 ml Balance -850 ml 100 ml medications Current Medications Medications Dose Ordered Sig/Sean Route Start Time Stop Time Status Last Admin Dose Admin Guaifenesin/ Dextromethorphan 10 ml Q4HP PRN PO 06/08/24 11:00 06/18/24 10:27 10 ML Enoxaparin Sodium 40 mg DAILY SC 06/10/24 10:00 06/24/24 10:25 40 MG Albuterol 2.5 mg Q4HR NEB 06/11/24 11:45 06/24/24 18:34 2.5 MG Morphine Sulfate 1 mg Q4HPRN PRN IV 06/16/24 14:00 06/22/24 21:47 1 MG Docusate Sodium 100 mg BID PRN PO 06/16/24 14:00 06/24/24 15:03 100 MG Trimethoprim/ Sulfamethoxazole 2 tab TID PO 06/20/24 22:00 06/24/24 15:02 2 TAB Ondansetron HCl 4 mg Q4HP PRN IV 06/21/24 16:00 06/24/24 01:25 4 MG Oxycodone/ Acetaminophen 1 tab Q4HP PRN PO 06/21/24 16:00 06/24/24 15:03 1 TAB Metoclopramide HCl 10 mg Q8HPRN PRN IV 06/21/24 16:00 06/23/24 21:15 10 MG Acetaminophen 500 mg Q6HP PRN PO 06/21/24 17:00 06/23/24 09:50 500 MG Diphenhydramine HCl 25 mg Q6HP PRN PO 06/21/24 17:00 Prednisone 40 mg BID PO 06/22/24 10:00 06/27/24 09:59 06/24/24 10:25 40 MG Pantoprazole Sodium 40 mg DAILY IV 06/23/24 12:45 06/24/24 10:25 40 MG Morphine Sulfate 2 mg Q30MP PRN IV 06/23/24 21:15 objective Gen.: Patient lying in bed in no apparent distress. On room air Head: Normocephalic, atraumatic. Eyes: EOMI/PERRLA. Ears: Normal hearing. Normal anatomy. Neck/trachea: Trachea midline, supple. Nose: Normal external anatomy. Mouth: Moist mucous membranes. Chest: Decreased air entry bilaterally. No wheezing or rhonchi. Cardiovascular: Positive S1, positive S2. Regular rate and rhythm. Abdomen: Positive bowel sounds in all 4 quadrants. Soft, non-tender, non- distended. : Deferred. Rectal: Deferred. Skin: Warm, dry. Intact. Extremities: 2+ radial pulses bilaterally. No lower extremity edema. Neuro: Awake, alert, oriented x3. No gross motor or sensory deficits. Cranial nerves II through XII intact. Gait not assessed. laboratory and microbiology Laboratory Tests 06/24/24 14:51 06/24/24 05:27 Test 06/24/24 05:27 Range/Units Serum Glucose 112 H 74-106 mg/dL Assessment/Plan Impression: Cough HIV (recent diagnosis) Anemia Elevated LFTs Atypical pneumonia SIADH Events: Remains on room air Supplemental oxygen PRN Continue antibiotics - Bactrim PO for Pneumocystis jirovecii Incentive spirometry ID recommendations appreciated. WBC trending down. Quantiferon indeterminate Low suspicion for TB. Discuss with infection control. Continue steroids - prednisone PO Pain control Avoid oversedation Monitor renal function Monitor electrolytes - supplement as necessary Hyponatremia w/ sodium 119 - low, slight improvement. F/u Nephrology recommendations Quantiferon testing - if negative, can D/C isolation for TB. DVT prophylaxis w/ Lovenox Labs reviewed. Rest of plan as noted below Plan: On room air Supplemental oxygen PRN Titrate to keep O2 sats above 92%. 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 Monitor electrolytes. Supplement as necessary. Monitor ins and outs. DVT prophylaxis. Prognosis: Poor given patient's multiple co-morbidities. Rest of plan per hospitalist and other consultants. Thank you Dr. Cruz, for allowing me to participate in this patient's care. Further recommendations will depend on the patient's clinical course. Please do not hesitate to contact me if you have any questions or concerns. This medical document was created using an electronic medical record system with [employer] dictation system. Although these documentations are being carefully reviewed, there may still be some phonetic and typographical changes. The errors are purely typographical, due to imperfection on the software program, and do not reflect any compromise in the patient's medical care. Dietary Evaluation Review Comments: Encourage and monitor PO intake to meet 75% of his needs Expected Outcomes/Goals: free from symptoms, gradual weight gain. Plan discussed with: Patient, Other (AALIYAH Vu) ANGELIC OTOOLE MD Jun 24, 2024 21:31
[2024-06-25] VITALS (18 sets, daily range): BP systolic 117–125; BP diastolic 59–77; PULSE 79–113; RESP 16–22; TEMP 97.5–98; O2SAT 95–100
[2024-06-25 04:36] LABS: Albumin 3.9 g/dL (3.2-4.8); Anion Gap 11 (5-15); BUN/Creatinine Ratio 50.6 (10.0-20.0); Calcium 9.3 mg/dL (8.7-10.4); Potassium 5.1 mmol/L (3.5-5.1)
[2024-06-25 04:55] LABS: Alanine Aminotransferase 1570 U/L (7-40); Alkaline Phosphatase 509 U/L (46-116); Aspartate Aminotransferase 2728 U/L (13-40); Bilirubin, Total 5.8 mg/dL (0.2-1.0); Blood Urea Nitrogen 41 mg/dL (9-23); Carbon Dioxide 16 mmol/L (20-31); Chloride 94 mmol/L (98-107); Glucose 150 mg/dL (74-106); Sodium 121 mmol/L (136-145)
--- NOTE | 2024-06-25 09:15 | DVH ---
CLINICAL INFORMATION: Transaminitis. Rule out biliary obstruction. TECHNIQUE: Multisequence multiplanar MRI images of the abdomen were obtained without IV contrast. [facility] T2-weighted MRCP images were obtained. 3D MRCP images were created. COMPARISON: None. FINDINGS: No gallstones are visualized in the gallbladder. Common bile duct measures up to 6 mm in d iameter, within normal limits. No filling defect or stricture identified in the common bile duct on M RATE SETTER images. Pancreatic duct is unremarkable. No other abnormality identified in the abdomen on limite d noncontrast enhanced images. IMPRESSION: No biliary ductal dilatation. No filling defect or stricture identified in the common bile duct on M RATE SETTER images.
[2024-06-25] MEDS: LACTULOSE 20Gm/30ML SOLN PO SCH ×2 (10:34→22:10)
[2024-06-25 11:32] LABS: Hepatitis A Ab IgM Negative
--- NOTE | 2024-06-25 11:37 | DVHPN2 ---
Progress Note - Dictate Date Seen: Jun 25, 2024 Medical Necessity Reason Pt with a Central, PICC or Fol: No Subjective LFTs high, skin discoloration jaundiced too He had bronchoscopy done on 06/12. vital signs Vital Sign Date Time Temp Pulse Resp B/P (MAP) Pulse Ox O2 Delivery O2 Flow Rate FiO2 06/25/24 09:48 100 16 97 06/25/24 09:43 Room Air* 0 21 06/25/24 08:45 122/77 (92) 06/25/24 05:00 98.0 98.0 Total Intake and Output 06/24/24 06/24/24 06/25/24 15:00 23:00 07:00 Intake Total 375 ml 0 ml Output Total 200 ml 820 ml Balance 175 ml -820 ml medications Current Medications Medications Dose Ordered Sig/Sean Route Start Time Stop Time Status Last Admin Dose Admin Guaifenesin/ Dextromethorphan 10 ml Q4HP PRN PO 06/08/24 11:00 06/18/24 10:27 10 ML Enoxaparin Sodium 40 mg DAILY SC 06/10/24 10:00 06/25/24 10:34 40 MG Albuterol 2.5 mg Q4HR NEB 06/11/24 11:45 06/25/24 09:43 2.5 MG Morphine Sulfate 1 mg Q4HPRN PRN IV 06/16/24 14:00 06/22/24 21:47 1 MG Docusate Sodium 100 mg BID PRN PO 06/16/24 14:00 06/24/24 15:03 100 MG Trimethoprim/ Sulfamethoxazole 2 tab TID PO 06/20/24 22:00 06/24/24 21:33 2 TAB Ondansetron HCl 4 mg Q4HP PRN IV 06/21/24 16:00 06/24/24 23:25 4 MG Oxycodone/ Acetaminophen 1 tab Q4HP PRN PO 06/21/24 16:00 06/24/24 23:25 1 TAB Metoclopramide HCl 10 mg Q8HPRN PRN IV 06/21/24 16:00 06/23/24 21:15 10 MG Acetaminophen 500 mg Q6HP PRN PO 06/21/24 17:00 06/23/24 09:50 500 MG Diphenhydramine HCl 25 mg Q6HP PRN PO 06/21/24 17:00 Prednisone 40 mg BID PO 06/22/24 10:00 06/27/24 09:59 06/25/24 10:34 40 MG Pantoprazole Sodium 40 mg DAILY IV 06/23/24 12:45 06/25/24 10:34 40 MG Morphine Sulfate 2 mg Q30MP PRN IV 06/23/24 21:15 Lactulose 15 ml DAILY PO 06/25/24 10:00 06/25/24 10:34 15 ML Furosemide 20 mg BIDD IV 06/25/24 10:45 objective General Appearance: Alert, Oriented X3, Cooperative, No acute distress HEENT: Atraumatic Respiratory: Other (Scattered crackles; good air entry bilateral) Cardiovascular: Regular rate, Normal S1, Normal S2 Abdominal: Normal bowel sounds, Soft, No tenderness Neuro: Normal gait, Normal speech, Strength at 5/5 X4 ext, Normal tone, Sensation intact, Cranial nerves 3-12 NL, Reflexes 2+ Psych/Mental Status: Mental status NL, Mood NL laboratory and microbiology Laboratory Tests 06/25/24 01:08 06/24/24 05:27 Test 06/25/24 01:08 Range/Units Serum Glucose 150 H 74-106 mg/dL Assessment/Plan Patient is a 28-year-old male with elevated liver enzymes elevated bilirubin # hyponatremia SIADH AIDS Pneumocystis Jerovoci or Carini Pneumonia ( opportunistic infection) multifocal pneumonia: atypical in nature Possible PCP pneumonia pulmonary nodule Homosexual elevated LFT anemia Immunosuppressed Recommendations Dc bactrim ? drug induced but too high recommend GI consult monitor LFTS MRCP unremarkable for biliary dilation stop date of bactrim was 07/04/2024,and plan was to switch to prophylaxis dose severe hyponatremia, nephrology on board AFB stain is negative x1 neg follow Quantiferon gold, indeterminate AFB screen x 3 pending; infection control HIV-1 RNA [PCR]: [id number]: needs ART therapy will start as outpt BAL sample to be sent for bacterial, fungal, AFB and viral cultures. follow 06/17/2024 : Chest x-ray showed Bilateral opacities which may reflect multifocal pneumonia. Prognosis guarded Thank you for consult Dietary Evaluation Review Comments: Encourage and monitor PO intake to meet 75% of his needs Expected Outcomes/Goals: free from symptoms, gradual weight gain. Plan discussed with: HOMERO Gray MD Jun 25, 2024 11:37
[2024-06-25 11:45] LABS: Hepatitis B Core IgM Negative (Negative); Hepatitis C Antibody Negative (Negative)
--- NOTE | 2024-06-25 11:52 | DVH ---
CHEST RADIOGRAPH Indication: pna Technique: Single frontal view of the chest was obtained COMPARISON: XY CHEST XRAY 1 VIEW on DOS: 06/17/24, XY CHEST XRAY 1 VIEW on DOS: 06/15/24, XY CHEST XRAY 1 VIEW on DOS: 06/12/24, XY CHEST XRAY 1 VIEW on DOS: 06/11/24 FINDINGS: No pneumothorax, pulmonary edema, or consolidative infiltrates. There is central peribronchial thicke ross, improved versus prior chest X-ray. The heart is not enlarged. There is thoracic dextroscoliosis . IMPRESSION: Reactive airways disease, improved versus chest X-ray dated 06/17/24.
[2024-06-25 12:22] LABS: Hepatitis B Surface Antigen Negative (Negative)
[2024-06-25] MEDS: FUROSEMIDE 20 MG/2 ML VIAL IV SCH (13:11)
--- NOTE | 2024-06-25 13:39 | DVHPN2 ---
Subjective Patient continues to report having intermittent tremors, without resolution. Reviewed: Care Plan, H&P, Labs, Medications, Previous Orders, Radiology, Other (Consultations) Changes from previous H/P or p: No Changes General: No Night Sweats, No Fatigue Neurological: No Weakness, No Numbness Cardiovascular: No Chest Pain Respiratory: Cough, Shortness of breath Gastrointestinal: No Nausea Musculoskeletal: No leg pain Endocrine: No Cold Intolerance Hematology: No Abnormal Bleeding Objective Vitals Vital Signs Date Time Temp Pulse Resp B/P (MAP) Pulse Ox O2 Delivery O2 Flow Rate FiO2 06/25/24 13:11 124/68 06/25/24 13:00 97.5 108 19 95 97.5 06/25/24 09:43 Room Air* 0 21 Intake/Output Intake and Output 06/25/24 07:00 Intake Total 375 ml Output Total 1020 ml Balance -645 ml Intake Oral 125 ml IV Total 250 ml Output Urine Total 1020 ml General Appearance: Alert, Oriented X3, Cooperative, moderate distress HEENT: Atraumatic, PERRLA Lungs: Other Cardiovascular: Regular rate, Normal S1, Normal S2, No murmurs Abdomen: Normal bowel sounds, Soft, No tenderness, No hepatospenomegaly Genitourinary: No Apparent Abnormalities Extremities: No edema Neuro: Normal speech, Sensation intact Skin: Dry, Intact Psych/Mental Status: Mental status NL, Mood NL Medications Current Medications Medications Dose Ordered Sig/Sean Route Start Time Stop Time Status Last Admin Dose Admin Guaifenesin/ Dextromethorphan 10 ml Q4HP PRN PO 06/08/24 11:00 06/18/24 10:27 10 ML Enoxaparin Sodium 40 mg DAILY SC 06/10/24 10:00 06/25/24 10:34 40 MG Albuterol 2.5 mg Q4HR NEB 06/11/24 11:45 06/25/24 09:43 2.5 MG Morphine Sulfate 1 mg Q4HPRN PRN IV 06/16/24 14:00 06/22/24 21:47 1 MG Docusate Sodium 100 mg BID PRN PO 06/16/24 14:00 06/24/24 15:03 100 MG Ondansetron HCl 4 mg Q4HP PRN IV 06/21/24 16:00 06/24/24 23:25 4 MG Oxycodone/ Acetaminophen 1 tab Q4HP PRN PO 06/21/24 16:00 06/24/24 23:25 1 TAB Metoclopramide HCl 10 mg Q8HPRN PRN IV 06/21/24 16:00 06/23/24 21:15 10 MG Acetaminophen 500 mg Q6HP PRN PO 06/21/24 17:00 06/23/24 09:50 500 MG Diphenhydramine HCl 25 mg Q6HP PRN PO 06/21/24 17:00 Prednisone 40 mg BID PO 06/22/24 10:00 06/27/24 09:59 06/25/24 10:34 40 MG Pantoprazole Sodium 40 mg DAILY IV 06/23/24 12:45 06/25/24 10:34 40 MG Morphine Sulfate 2 mg Q30MP PRN IV 06/23/24 21:15 Lactulose 15 ml DAILY PO 06/25/24 10:00 06/25/24 10:34 15 ML Furosemide 20 mg BIDD IV 06/25/24 10:45 06/25/24 13:11 20 MG Laboratory Results Laboratory Tests 06/24/24 05:27 06/25/24 01:08 Chemistry Test 06/25/24 01:08 Albumin 3.9 g/dL (3.2-4.8) Calcium Level 9.3 mg/dL (8.7-10.4) Total Protein 8.0 g/dL (5.7-8.2) Cardiac Markers Test 06/25/24 10:34 B-Type Natriuretic Peptide 17.98 pg/mL (0-100) LFT Test 06/25/24 01:08 Alanine Aminotransferase (ALT) 1570 U/L (7-40) H Alkaline Phosphatase 509 U/L (46-116) H Aspartate Amino Transferase (AST) 2728 U/L (13-40) H Total Bilirubin 5.8 mg/dL (0.2-1.0) H Urinalysis Test 06/12/24 20:52 06/19/24 10:30 06/23/24 09:13 Urine Mucus Few (None Seen) Urine Sodium 76 mmol/L (40-220) Urine Color Yellow (Yellow) Urine Clarity Clear (Clear) Urine pH 6.5 (5.0-9.0) Urine Specific [place] 1.013 (1.001-1.035) Urine Protein Trace (Negative) H Urine Ketones Negative (Negative) Urine Blood Trace /uL (Negative) H Urine Nitrite Negative (Negative) Urine Bilirubin 1+ (Negative) Urine Urobilinogen 6 mg/dL (Negative) Urine Leukocyte Esterase Negative /uL (Negative) Urine RBC <1 /hpf (0 - 3) Urine WBC 1 /hpf (0 - 3) Urine Squamous Epithelial Cells None seen /hpf (<5) Urine Bacteria None seen /hpf (None Seen) Urine Osmolality 421 mOsm/kg Urine Glucose Normal mg/dL (Normal) Microbiology Microbiology Date/Time Source Procedure Growth Status 06/21/24 18:18 Blood Blood Culture - Preliminary NO GROWTH AFTER 72 HOURS OF INCUBATION. Resulted 06/21/24 14:30 Nose MRSA Screen - Final Complete 06/14/24 15:30 Sputum Gram Stain - Final Complete 06/14/24 15:30 Sputum Respiratory Culture - Final Complete Labs and/or images reviewed: Labs reviewed by me, Image(s) reviewed by me Assessment/Plan Assessment/Plan Impression: -acute hypoxic respiratory failure -multifocal pneumonia, probable P [place] -rule out tuberculosis -scoliosis -HIV/AIDS : New diagnosis -hyponatremia -SIADH Plan: Events: Discussed case with Infectious Disease doctor. Bactrim will be stopped at this time. GI consultation placed. MRCP reviewed. We will order liver ultrasound. Patient has rigors will be treated with calcium gluconate and Demerol. -antiemetics -nephrology consultation -free water restriction -pain management: [place] -O2 supplementation to keep saturation greater 92% -pulmonary consultation -monitor for results bronchial alveolar wash -repeat labs in a.m. Critical care time spent with patient discussing and formulating plan of care: 40 minutes. This does not include time spent performing procedures. This medical document was created using an electronic medical record system with [employer] dictation system. Although this document has been carefully reviewed, there may still be some phonetic and typographical errors. These areas are purely typographical due to imperfections of the software programs, and do not reflect any compromise in the patient's medical care. Plan discussed with: Patient, Other (RN) My Orders Orders - MATTHEW MAURER NP Procedure Category Date Status Time Chest Xray 1 View XY 06/25/24 Resulted 09:59 * [facility] Information [employer] CONS 06/25/24 Transmitted 11:47 LIVER US 06/25/24 Logged 11:49 Calcium Ivpb PHA 06/25/24 Verified 13:45 Creatine Kinase LAB 06/26/24 Verified 04:00 Meperidine Injection PHA 06/25/24 Verified (Demerol Injection) 13:45 Date of Service: Jun 25, 2024 Billing Provider: MATTHEW MAURER NP Common Visit Codes: [id number] CARE 30-74 MIN MATTHEW MAURER NP Jun 25, 2024 13:39
[2024-06-25] MEDS: SODIUM CHL 3% HYPERTONIC 500 ML BAG IN ONE (14:27)
[2024-06-25] MEDS: MEPERIDINE HCL (25 MG/ML) 1ML VIAL IV ONE (15:16)
[2024-06-25] MEDS: CALCIUM GLUC 1,000mg/50ml-NS 50 ML IV ONE (15:16)
[2024-06-25 15:31] LABS: Bilirubin, Direct 5.4 mg/dL (<0.3); Blood Alcohol < 3.0 mg/dL (<10)
[2024-06-25 15:32] LABS: INR 1.13 (0.9-1.15); Prothrombin Time 11.8 sec (9.3-11.8)
--- NOTE | 2024-06-25 16:15 | DVHPN2 ---
Progress Note Date Seen: Jun 25, 2024 Medical Necessity Reason Pt with a Central, PICC or Fol: No Subjective Other Systems: Patient seen and examined by myself today in f/u Objective vital signs Vital Sign Date Time Temp Pulse Resp B/P (MAP) Pulse Ox O2 Delivery O2 Flow Rate FiO2 06/25/24 15:16 108 19 124/68 06/25/24 14:27 98 Room Air 0.0 06/25/24 14:27 21 06/25/24 13:00 97.5 97.5 Total Intake and Output 06/24/24 06/24/24 06/25/24 15:00 23:00 07:00 Intake Total 375 ml 0 ml Output Total 200 ml 820 ml Balance 175 ml -820 ml medications Current Medications Medications Dose Ordered Sig/Sean Route Start Time Stop Time Status Last Admin Dose Admin Guaifenesin/ Dextromethorphan 10 ml Q4HP PRN PO 06/08/24 11:00 06/18/24 10:27 10 ML Enoxaparin Sodium 40 mg DAILY SC 06/10/24 10:00 06/25/24 10:34 40 MG Albuterol 2.5 mg Q4HR NEB 06/11/24 11:45 06/25/24 14:27 2.5 MG Morphine Sulfate 1 mg Q4HPRN PRN IV 06/16/24 14:00 06/22/24 21:47 1 MG Docusate Sodium 100 mg BID PRN PO 06/16/24 14:00 06/24/24 15:03 100 MG Ondansetron HCl 4 mg Q4HP PRN IV 06/21/24 16:00 06/24/24 23:25 4 MG Oxycodone/ Acetaminophen 1 tab Q4HP PRN PO 06/21/24 16:00 06/24/24 23:25 1 TAB Metoclopramide HCl 10 mg Q8HPRN PRN IV 06/21/24 16:00 06/23/24 21:15 10 MG Acetaminophen 500 mg Q6HP PRN PO 06/21/24 17:00 06/23/24 09:50 500 MG Diphenhydramine HCl 25 mg Q6HP PRN PO 06/21/24 17:00 Prednisone 40 mg BID PO 06/22/24 10:00 06/27/24 09:59 06/25/24 10:34 40 MG Pantoprazole Sodium 40 mg DAILY IV 06/23/24 12:45 06/25/24 10:34 40 MG Morphine Sulfate 2 mg Q30MP PRN IV 06/23/24 21:15 Furosemide 20 mg BIDD IV 06/25/24 10:45 06/25/24 13:11 20 MG Lactulose 30 ml BID PO 06/25/24 22:00 Examination: LUNGS:Normal, CVS:Normal, MSK:Normal laboratory and microbiology Laboratory Tests 06/25/24 01:08 06/24/24 05:27 Test 06/25/24 01:08 Range/Units Serum Glucose 150 H 74-106 mg/dL Microbiology Date/Time Source Procedure Growth Status 06/21/24 18:18 Blood Blood Culture - Preliminary NO GROWTH AFTER 72 HOURS OF INCUBATION. Resulted 06/21/24 14:30 Nose MRSA Screen - Final Complete 06/14/24 15:30 Sputum Gram Stain - Final Complete 06/14/24 15:30 Sputum Respiratory Culture - Final Complete Problem List/Assessment/Plan Problem List/Assessment/Plan hyponatremia likely secondary to IV hypotonic IVF hyperkalemia AIDS PCP on bactrim IV now switched to p.o. PNA leukopenia r/o TB Recommendations Ns slowly improving Avoid rapid correction of Na Add furosemide Fluid restriction ID consult will continue to follow Plan discussed with: Patient My Orders My Orders Orders - YONATHAN YAÑEZ MD Procedure Category Date Status Time Furosemide Injection PHA 06/25/24 In Process (Lasix Injection) 10:45 Maintain Fluid [place] 06/25/24 In Process Restrictions 10:34 Dietary Evaluation Review Comments: Encourage and monitor PO intake to meet 75% of his needs Expected Outcomes/Goals: free from symptoms, gradual weight gain. YONATHAN YAÑEZ MD Jun 25, 2024 16:15
--- NOTE | 2024-06-25 16:28 | DVH ---
Ultrasound liver INDICATION: elevated lfts Technique: 2-D real-time ultrasound was performed with axial and sagittal images submitted for evalu ation. FINDINGS: Liver is mildly enlarged and echogenic in appearance. It measures 17.4 cm. The liver surfa ce is smooth. No gallstones or gallbladder wall thickening. There is sludge in the gallbladder. The common bile duct normal in size measuring 4.5 mm IMPRESSION: 1. Prominent right lobe of the liver. Signs of hepatic fatty infiltration without focal hepatic mass 2. Sludge in the gallbladder. No biliary obstruction
[2024-06-25] MEDS: SODIUM BICARBONATE 650 MG TAB PO SCH (18:38)
--- NOTE | 2024-06-25 18:38 | DVHCONRES ---
Date Seen: Jun 25, 2024 Resident Creating Document: LEONIE LIRIANO RESIDENT Referring Physician Jj BRAXTON Reason for Consultation Transaminitis History of Present Illness A 28-year-old homosexual male patient; who was recently diagnosed with HIV, not on treatment; who presented with cough to [facility] and was transferred to [facility] for further evaluation and treatment. He has a history of homosexual activity presents with suspected sepsis, acute hypoxic respiratory failure, and bilateral pneumonia, possibly due to atypical infections. They have a productive cough, fever, tachycardia, and decreased oxygen saturation. The patient is on IV antibiotics, oxygen therapy, and nebulizer treatments, with close monitoring and consultations from infectious d isease, nephrology and pulmonology teams. Additional concerns include normocytic anemia, elevated liver enzymes, mild hyponatremia, and an elevated D-dimer, with a chest angiogram ordered to rule out DVT. Denies any prior EGD or colonoscopy, family history negative for any GI malignancy. Past Medical History Denies Past Surgical History Denies Family History: Diabetes mellitus G8 MOTHER G8 FATHER Ischemic heart disease G8 MOTHER G8 FATHER Family History Noncontributory Social History Comes from home, lives with family, previous history of sexual encounter with male partners. Not taking any medications. Allergies: Coded Allergies: NO KNOWN ALLERGIES (Unverified , 06/08/24) Home Meds No Active Prescriptions or Reported Meds Current Medications Current Medications Medications (Trade) Dose Ordered Sig/Sean Route PRN Reason Start Time Stop Time Status Last Admin Lactulose 15 ml DAILY PO 06/25/24 10:00 06/25/24 13:55 DC 06/25/24 10:34 Furosemide (Lasix Injection) 20 mg BIDD IV 06/25/24 10:45 06/25/24 13:11 Lactulose 30 ml BID PO 06/25/24 22:00 Sodium Bicarbonate 650 mg QID PO 06/25/24 18:00 Review of Systems CONSTITUTIONAL: Fever, night sweats, weight loss, Lymphadenopathy, ecchymoses, fatigue, yellow discoloration of skin and sclera DERMATOLOGIC: Rash, New/growing/changing skin lesions: Negative HEENT: Vision change, eye pain, Rhinorrhea, sinus pain, epistaxis, dysphagia, odynophagia, globus sensation, Change in hearing, tinnitus, vertigo, otalgia, Dental problems, oral ulcers or lesions ENDOCRINE: Weight change, heat or cold intolerance, tremor, insomnia, neck pain or swelling, Polyuria, polydipsia, polyphagia, Abnormal hair growth, change in nails CARDIOVASCULAR: Chest pain, palpitations, syncope, Edema, cyanosis, claudic ation, Orthopnea, paroxysmal nocturnal dyspnea: PULMONARY: Shortness of breath, dyspnea with exertion, Cough, hemoptysis, wheezing, chest pain GI: Nausea, vomiting, diarrhea, melena, hematochezia, Change in appetite, abdominal pain, change in bowel habits or stools : Dysuria, frequency, urgency, Urinary incontinence, hematuria, foamy urine, nocturia, Change in libido, erectile dysfunction, Change in menses, dysmenorrhea, dyspaerunia, pelvic pain MUSCULOSKELETAL: Joint swelling or pain, muscle pain, back pain NEUROLOGIC: Headache, scotoma, Change in smell or taste, change in facial muscles, Muscle weakness, paresthesias, anesthesia, Ataxia, change in speech PSYCHIATRIC: Depression, anxiety, hallucinations, britton, suicidal/homicidal thoughts, Binging, purging Vital Signs Vital Signs Date Time Temp Pulse Resp B/P (MAP) Pulse Ox O2 Delivery O2 Flow Rate FiO2 06/25/24 17:00 97.8 111 17 125/70 (88) 97 97.8 06/25/24 14:27 Room Air 0.0 06/25/24 14:27 21 Physical Exam GENERAL APPEARANCE: Poorly nourished, alert and cooperative, and appears to be in no acute distress. sick looking HEAD: normocephalic. EYES: PERRL, EOMI. Fundi normal, vision is grossly intact. Icterus bilateral EARS: External auditory canals and tympanic membranes clear, hearing grossly intact. NOSE: No nasal discharge. THROAT: Oral cavity and pharynx normal. No inflammation, swelling, exudate, or lesions. Teeth and gingiva in good general condition. NECK: Neck supple, non-tender without lymphadenopathy, masses or thyromegaly. CARDIAC: Normal S1 and S2. No S3, S4 or murmurs. Rhythm is regular. There is no peripheral edema, cyanosis or pallor. Extremities are warm and well perfused. Capillary refill is less than 2 seconds. No carotid bruits. LUNGS: Clear to auscultation and percussion without rales, rhonchi, wheezing or diminished breath sounds. ABDOMEN: Positive bowel sounds. Soft, nondistended, nontender. No guarding or rebound. No masses. MUSKULOSKELETAL: Adequately aligned spine. ROM intact spine and extremities. No joint erythema or tenderness. Normal muscular development. Normal gait. SKIN: Skin yellow color, texture and turgor with no lesions or eruptions. PSYCHIATRIC: The mental examination revealed the patient was oriented to person, place, and time. The patient was able to demonstrate good judgement and reason, without hallucinations, abnormal affect or abnormal behaviors during the examination. Patient is not suicidal. Labs/Diagnostic Data Labs Test 06/25/24 16:06 06/25/24 14:55 06/25/24 10:34 06/25/24 01:08 Range/Units Miscellaneous Referred Test (Refrg) Sent to [facility] Prothrombin Time 11.8 9.3-11.8 sec Prothrombin Time INR 1.13 0.9-1.15 Direct Bilirubin 5.4 H <0.3 mg/dL Acetaminophen Level 6.0 L 10.0-20.0 UG/ML Plasma/Serum Blood Alcohol < 3.0 <10 mg/dL B-Type Natriuretic Peptide 17.98 0-100 pg/mL Sodium Level 121 L 136-145 mmol/L Potassium Level 5.1 3.5-5.1 mmol/L Chloride Level 94 L 98-107 mmol/L Carbon Dioxide Level 16 L 20-31 mmol/L Anion Gap 11 5-15 Blood Urea Nitrogen 41 H 9-23 mg/dL Creatinine 0.81 0.700-1.30 mg/dL Glomerular Filtration Rate Calc 123 >90 mL/min BUN/Creatinine Ratio 50.6 H 10.0-20.0 Serum Glucose 150 H 74-106 mg/dL Calcium Level 9.3 8.7-10.4 mg/dL Total Bilirubin 5.8 H 0.2-1.0 mg/dL Aspartate Amino Transferase (AST) 2728 H 13-40 U/L Alanine Aminotransferase (ALT) 1570 H 7-40 U/L Alkaline Phosphatase 509 H 46-116 U/L Ammonia 48 H 11-32 umol/L Total Protein 8.0 5.7-8.2 g/dL Albumin 3.9 3.2-4.8 g/dL Hepatitis A IgM Antibody Negative Hepatitis B Surface Antigen Negative Negative Hepatitis B Core IgM Antibody Negative Negative Hepatitis C Antibody Negative Negative Test 06/24/24 23:47 06/24/24 05:27 06/23/24 21:41 06/23/24 09:52 Range/Units POC Glucose 149 H 70-106 mg/dl White Blood Count 1.8 #*L 4.4-10.8 10^3/uL Red Blood Count 3.95 L 4.5-5.90 10^6/uL Hemoglobin 10.7 L 13.5-17.5 g/dL Hematocrit 31.8 L 41.0-53.0 % Mean Corpuscular Volume 80.5 80.0-100.0 fL Mean Corpuscular Hemoglobin 27.2 L 28.0-32.0 pg Mean Corpuscular Hemoglobin Concent 33.7 32.0-36.0 g/dL Red Cell Distribution Width 16.8 H 11.8-14.3 % Platelet Count 145 140-450 10^3/uL Mean Platelet Volume 8.2 6.9-10.8 fL Neutrophils (%) (Auto) 37.0-80.0 % Lymphocytes (%) (Auto) 10.0-50.0 % Monocytes (%) (Auto) 0.0-12.0 % Basophils (%) (Auto) 0.0-2.0 % Neutrophils # (Auto) 1.6-8.6 10 ^3/uL Lymphocytes # (Auto) 0.4-5.4 10 ^3/uL Monocytes # (Auto) 0-1.3 10 ^3/uL Differential Total Cells Counted 100.0 100 Neutrophils % (Manual) 79 37.0-80.0 Band Neutrophils % (Manual) 8 Lymphocytes % (Manual) 10 10.0-50.0 Monocytes % (Manual) 3 0-12 Eosinophils % (Manual) 0 0-7 Basophils % (Manual) 0 0.0-2.0 Metamyelocytes % (manual) 0 Myelocytes % (Manual) 0 Promyelocytes % (Manual) 0 Blast Cells % (Manual) 0 Reactive Lymphocytes 0 Platelet Estimate Adequate Anisocytosis (manual) Slight Ovalocytes Few Magnesium Level 2.6 1.6-2.6 mg/dL Troponin I High Sensitivity 10 </=54 ng/L Uric Acid 3.3 L 3.7-9.2 mg/dL Test 06/23/24 09:13 06/23/24 03:52 06/20/24 12:50 06/19/24 10:30 Range/Units Urine Color Yellow Yellow Urine Clarity Clear Clear Urine pH 6.5 5.0-9.0 Urine Specific [place] 1.013 1.001-1.035 Urine Protein Trace H Negative Urine Ketones Negative Negative Urine Blood Trace H Negative /uL Urine Nitrite Negative Negative Urine Bilirubin 1+ Negative Urine Urobilinogen 6 Negative mg/dL Urine Leukocyte Esterase Negative Negative /uL Urine RBC <1 0 - 3 /hpf Urine WBC 1 0 - 3 /hpf Urine Squamous Epithelial Cells None seen <5 /hpf Urine Bacteria None seen None Seen /hpf Urine Osmolality 421 mOsm/kg Urine Glucose Normal Normal mg/dL Eosinophils (%) (Auto) 0.1 0.0-7.0 % Eosinophils # (Auto) 0 0-0.8 10 ^3/uL Basophils # (Auto) 0 0-0.2 10 ^3/uL Nucleated Red Blood Cells 0.4 % TB Test (QFT) Gold Plus Indeterminate H Negative TB Test (QFT) Nil >10.00 . IU/mL TB Test (QFT) Mitogen >10.00 . IU/mL TB Test (QFT) Antigen 1 >10.00 . IU/mL TB Test (QFT) Antigen 2 >10.00 . IU/mL TB Test (QFT) Criteria Comment . Urine Sodium 76 40-220 mmol/L Test 06/19/24 05:41 06/14/24 05:26 06/12/24 20:52 06/12/24 09:00 Range/Units Serum Osmolality 269 L 278-298 mOsm/kg Reticulocyte Count (auto) 0.50 0.5-1.5 % Urine Mucus Few None Seen Lactic Acid Level 0.8 0.4-2.0 mmol/L Test 06/12/24 05:40 06/11/24 13:10 06/09/24 23:22 06/09/24 10:26 Range/Units Activated Partial Thromboplast Time 29.3 24.5-34.5 SEC D-Dimer, Quantitative 1.49 H 0.0-0.49 mg/L FEU Legionella pneumophila S1-6 Abs Non reactive Non Reactive Mycoplasma pneumoniae IgG Antibody 395 H 0-99 U/mL Mycoplasma pneumoniae IgM Antibody <770 0-769 U/mL HIV-1 Antibody Confirmation Reactive Non Reactive HIV-2 Antibody Confirmation Non reactive Non Reactive HIV (1&2) Ag and Ab, 4th Generation Preliminary reactive Non Reactive HIV (1&2) Antibody Deferred Negative HIV (1&2) Antibody Interpretation Hiv-1 positive H . Test 06/08/24 11:16 Range/Units HIV-1 RNA (PCR) [id number] . copies/mL HIV-1 RNA (PCR) log10 Value 6.294 . Microbiology Date/Time Source Procedure Growth Status 06/21/24 18:18 Blood Blood Culture - Preliminary NO GROWTH AFTER 72 HOURS OF INCUBATION. Resulted 06/21/24 14:30 Nose MRSA Screen - Final Complete 06/14/24 15:30 Sputum Gram Stain - Final Complete 06/14/24 15:30 Sputum Respiratory Culture - Final Complete Assessment Assessment/impression: #total hyperbilirubinemia, icterus #mild elevated ammonia #transaminitis significantly elevated, negative hepatitis panel, MRCP negative #fatty liver #gallbladder sludge MRCP negative #hyponatremia likely secondary to IV hypotonic IVF #hyperkalemia #AIDS #PJP pneumonia on Bactrim #leukopenia #history of travel to TB endemic areas/[place] r/o T #sepsis #neutropenia/leukopenia #Acute hypoxic respiratory failure #Recently diagnosed with HIV in the setting of homosexual male #Normocytic anemia; unclear etiology #Elevated D-dimer, negative CT PE #right lower lobe 2 cm nodule in lungs. #left adrenal nodule Plan/Recommendation GI Plan: # medications: pantoprazole 40 mg IV daily for GI prophylaxis. Hold Bactrim for now. Anti retroviral treatment to start as soon as possible/as per discretion of ID when LFT trends down. # labs: Check CD4 count, Check for Tylenol level, PTT/INR, blood alcohol level, UDS, trend CMP by holding Bactrim, Tylenol and other hepatotoxic medications. Need inpatient as well as outpatient close follow up of CMP. # plan procedure: No need of in-hospital procedure, H&H stable, no active bleeding noted. # diet: please avoid NSAIDs, alcohol, caffeine, spicy, highly acidic and caustic diets. # given HIV aids in immunocompromised states broad differential of hepatitis we will include cytomegalovirus, Mycobacterium avium complex or hematogenous seeding of pulmonary tuberculosis if found. # please scheduled follow up with GI as outpatient with Dr. Robins. Thank you so much for the opportunity to consult on your patient. GI team will follow the patient/ GI team signing off the patient. In case of any questions or concerns please feel free to reach out. Case an action plan discussed with Dr. Kiya Robins. Complex care planning needed total 47 minutes of detailed discussion. The patient and caregiver team agreed to the plan. Plan discussed with: Patient, Other (Primary team, RN.) LEONIE LIRIANO RESIDENT Jun 25, 2024 18:38
--- NOTE | 2024-06-25 21:32 | DVHPN2 ---
Progress Note - Dictate Date Seen: Jun 25, 2024 Medical Necessity Reason Pt with a Central, PICC or Fol: No Subjective Patient seen and examined at bedside. On room air Overnight events reviewed. vital signs Vital Sign Date Time Temp Pulse Resp B/P (MAP) Pulse Ox O2 Delivery O2 Flow Rate FiO2 06/25/24 20:00 Room Air* 0 21 06/25/24 18:47 102 20 99 06/25/24 18:38 125/70 06/25/24 17:00 97.8 97.8 Total Intake and Output 06/24/24 06/24/24 06/25/24 15:00 23:00 07:00 Intake Total 375 ml 0 ml Output Total 200 ml 820 ml Balance 175 ml -820 ml medications Current Medications Medications Dose Ordered Sig/Sean Route Start Time Stop Time Status Last Admin Dose Admin Guaifenesin/ Dextromethorphan 10 ml Q4HP PRN PO 06/08/24 11:00 06/18/24 10:27 10 ML Enoxaparin Sodium 40 mg DAILY SC 06/10/24 10:00 06/25/24 10:34 40 MG Albuterol 2.5 mg Q4HR NEB 06/11/24 11:45 06/25/24 18:37 2.5 MG Morphine Sulfate 1 mg Q4HPRN PRN IV 06/16/24 14:00 06/22/24 21:47 1 MG Docusate Sodium 100 mg BID PRN PO 06/16/24 14:00 06/24/24 15:03 100 MG Ondansetron HCl 4 mg Q4HP PRN IV 06/21/24 16:00 06/24/24 23:25 4 MG Oxycodone/ Acetaminophen 1 tab Q4HP PRN PO 06/21/24 16:00 Hold 06/24/24 23:25 1 TAB Metoclopramide HCl 10 mg Q8HPRN PRN IV 06/21/24 16:00 06/23/24 21:15 10 MG Acetaminophen 500 mg Q6HP PRN PO 06/21/24 17:00 Hold 06/23/24 09:50 500 MG Diphenhydramine HCl 25 mg Q6HP PRN PO 06/21/24 17:00 Prednisone 40 mg BID PO 06/22/24 10:00 06/27/24 09:59 06/25/24 10:34 40 MG Pantoprazole Sodium 40 mg DAILY IV 06/23/24 12:45 06/25/24 10:34 40 MG Morphine Sulfate 2 mg Q30MP PRN IV 06/23/24 21:15 Furosemide 20 mg BIDD IV 06/25/24 10:45 06/25/24 18:38 20 MG Lactulose 30 ml BID PO 06/25/24 22:00 Sodium Bicarbonate 650 mg QID PO 06/25/24 18:00 06/25/24 18:38 650 MG objective Gen.: Patient lying in bed in no apparent distress. On room air Head: Normocephalic, atraumatic. Eyes: EOMI/PERRLA. Ears: Normal hearing. Normal anatomy. Neck/trachea: Trachea midline, supple. Nose: Normal external anatomy. Mouth: Moist mucous membranes. Chest: Decreased air entry bilaterally. No wheezing or rhonchi. Cardiovascular: Positive S1, positive S2. Regular rate and rhythm. Abdomen: Positive bowel sounds in all 4 quadrants. Soft, non-tender, non- distended. : Deferred. Rectal: Deferred. Skin: Warm, dry. Intact. Extremities: 2+ radial pulses bilaterally. No lower extremity edema. Neuro: Awake, alert, oriented x3. No gross motor or sensory deficits. Cranial nerves II through XII intact. Gait not assessed. laboratory and microbiology Laboratory Tests 06/25/24 01:08 06/24/24 05:27 Test 06/25/24 01:08 Range/Units Serum Glucose 150 H 74-106 mg/dL Assessment/Plan Impression: Cough HIV (recent diagnosis) Anemia Elevated LFTs Atypical pneumonia SIADH Events: Remains on room air Supplemental oxygen PRN Get AFB smear and culture Quantiferon indeterminate -Low suspicion for TB Bactrim held. Discussed with ID. Get GI evaluation. Monitor WBC. Continue steroids - prednisone PO Incentive spirometry Diurese w/ Lasix as tolerated Monitor renal function Monitor electrolytes - supplement as necessary Hyponatremia w/ sodium 121 - continue to monitor Nephrology recommendations appreciated DVT prophylaxis w/ Lovenox Labs reviewed. Rest of plan as noted below Plan: On room air Supplemental oxygen PRN Titrate to keep O2 sats above 92%. 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 Monitor electrolytes. Supplement as necessary. Monitor ins and outs. DVT prophylaxis. Prognosis: Poor given patient's multiple co-morbidities. Rest of plan per hospitalist and other consultants. Thank you Dr. Cruz, for allowing me to participate in this patient's care. Further recommendations will depend on the patient's clinical course. Please do not hesitate to contact me if you have any questions or concerns. This medical document was created using an electronic medical record system with [employer] dictation system. Although these documentations are being carefully reviewed, there may still be some phonetic and typographical changes. The errors are purely typographical, due to imperfection on the software program, and do not reflect any compromise in the patient's medical care. Dietary Evaluation Review Comments: Encourage and monitor PO intake to meet 75% of his needs Expected Outcomes/Goals: free from symptoms, gradual weight gain. Plan discussed with: Patient, Other (AALIYAH Vu) ANGELIC OTOOLE MD Jun 25, 2024 21:32
[2024-06-26] VITALS (19 sets, daily range): BP systolic 111–126; BP diastolic 63–80; PULSE 103–144; RESP 16–20; TEMP 97.6–98.7; O2SAT 96–100
[2024-06-26] MEDS: SODIUM CHL 3% HYPERTONIC 500 ML BAG IN ONE ×2 (05:49→08:42)
[2024-06-26 06:54] LABS: Albumin 4.4 g/dL (3.2-4.8); Anion Gap 9 (5-15); BUN/Creatinine Ratio 48.1 (10.0-20.0); Calcium 9.6 mg/dL (8.7-10.4)
[2024-06-26 07:14] LABS: Alanine Aminotransferase 1762 U/L (7-40); Alkaline Phosphatase 625 U/L (46-116); Aspartate Aminotransferase 2001 U/L (13-40); Blood Urea Nitrogen 39 mg/dL (9-23); Carbon Dioxide 20 mmol/L (20-31); Chloride 92 mmol/L (98-107); Creatine Kinase IFCC 735 U/L (46-171); Glucose 120 mg/dL (74-106); Potassium 5.3 mmol/L (3.5-5.1); Sodium 121 mmol/L (136-145); Total Protein 8.8 g/dL (5.7-8.2)
--- NOTE | 2024-06-26 09:12 | DVHPN2 ---
Progress Note - Dictate Date Seen: Jun 26, 2024 Medical Necessity Reason Pt with a Central, PICC or Fol: No Subjective Patient reports that Tremors has been improved. LFTs high, skin discoloration jaundiced too He had bronchoscopy done on 06/12. vital signs Vital Sign Date Time Temp Pulse Resp B/P (MAP) Pulse Ox O2 Delivery O2 Flow Rate FiO2 06/26/24 07:19 115 16 96 06/26/24 07:13 Room Air* 0 21 06/26/24 05:29 118/74 06/26/24 05:00 98.4 98.4 Total Intake and Output 06/25/24 06/25/24 06/26/24 15:00 23:00 07:00 Intake Total 480 ml 150 ml Output Total 800 ml 700 ml Balance -320 ml -550 ml medications Current Medications Medications Dose Ordered Sig/Sean Route Start Time Stop Time Status Last Admin Dose Admin Guaifenesin/ Dextromethorphan 10 ml Q4HP PRN PO 06/08/24 11:00 06/18/24 10:27 10 ML Enoxaparin Sodium 40 mg DAILY SC 06/10/24 10:00 06/25/24 10:34 40 MG Albuterol 2.5 mg Q4HR NEB 06/11/24 11:45 06/26/24 07:13 2.5 MG Morphine Sulfate 1 mg Q4HPRN PRN IV 06/16/24 14:00 06/25/24 22:33 1 MG Docusate Sodium 100 mg BID PRN PO 06/16/24 14:00 06/24/24 15:03 100 MG Ondansetron HCl 4 mg Q4HP PRN IV 06/21/24 16:00 06/24/24 23:25 4 MG Oxycodone/ Acetaminophen 1 tab Q4HP PRN PO 06/21/24 16:00 Hold 06/24/24 23:25 1 TAB Metoclopramide HCl 10 mg Q8HPRN PRN IV 06/21/24 16:00 06/23/24 21:15 10 MG Acetaminophen 500 mg Q6HP PRN PO 06/21/24 17:00 Hold 06/23/24 09:50 500 MG Diphenhydramine HCl 25 mg Q6HP PRN PO 06/21/24 17:00 Prednisone 40 mg BID PO 06/22/24 10:00 06/27/24 09:59 06/25/24 22:10 40 MG Pantoprazole Sodium 40 mg DAILY IV 06/23/24 12:45 06/25/24 10:34 40 MG Morphine Sulfate 2 mg Q30MP PRN IV 06/23/24 21:15 Furosemide 20 mg BIDD IV 06/25/24 10:45 06/26/24 05:29 20 MG Lactulose 30 ml BID PO 06/25/24 22:00 06/25/24 22:10 30 ML Sodium Bicarbonate 650 mg QID PO 06/25/24 18:00 06/26/24 05:29 650 MG objective General Appearance: Alert, Oriented X3, Cooperative, No acute distress HEENT: Atraumatic Respiratory: Other (Scattered crackles; good air entry bilateral) Cardiovascular: Regular rate, Normal S1, Normal S2 Abdominal: Normal bowel sounds, Soft, No tenderness Neuro: Normal gait, Normal speech, Strength at 5/5 X4 ext, Normal tone, Sensation intact, Cranial nerves 3-12 NL, Reflexes 2+ Psych/Mental Status: Mental status NL, Mood NL laboratory and microbiology Laboratory Tests 06/26/24 05:27 06/24/24 05:27 Test 06/26/24 05:27 Range/Units Serum Glucose 120 H 74-106 mg/dL Assessment/Plan Patient is a 28-year-old male with elevated liver enzymes elevated bilirubin # hyponatremia SIADH AIDS Pneumocystis Jerovoci or Carini Pneumonia ( opportunistic infection) multifocal pneumonia: atypical in nature Possible PCP pneumonia pulmonary nodule Homosexual elevated LFT anemia Immunosuppressed Recommendations Dc Bactrim ? drug induced but too high recommend GI consult monitor LFTS MRCP unremarkable for biliary dilation stop date of bactrim was 07/04/2024,and plan was to switch to prophylaxis dose severe hyponatremia, nephrology on board 06/25, Sputum culture pending AFB stain is negative x1 neg follow Quantiferon gold, indeterminate AFB screen x 3 pending; infection control HIV-1 RNA [PCR]: [id number]: needs ART therapy will start as outpt BAL sample to be sent for bacterial, fungal, AFB and viral cultures. follow 06/17/2024 : Chest x-ray showed Bilateral opacities which may reflect multifocal pneumonia. Prognosis guarded Thank you for consult Dietary Evaluation Review Comments: Encourage and monitor PO intake to meet 75% of his needs Expected Outcomes/Goals: free from symptoms, gradual weight gain. Plan discussed with: Patient HOMERO VIGIL MD Jun 26, 2024 09:12
--- NOTE | 2024-06-26 10:34 | DVHPN2 ---
Progress Note Date Seen: Jun 26, 2024 Medical Necessity Reason Pt with a Central, PICC or Fol: No Subjective Patient reports: No new complaints Other Systems: Patient seen and examined by myself today in follow-up Objective vital signs Vital Sign Date Time Temp Pulse Resp B/P (MAP) Pulse Ox O2 Delivery O2 Flow Rate FiO2 06/26/24 09:34 123 20 121/75 06/26/24 09:00 98.3 96 98.3 06/26/24 09:00 0.0 21 06/26/24 08:48 Room Air* Total Intake and Output 06/25/24 06/25/24 06/26/24 15:00 23:00 07:00 Intake Total 480 ml 150 ml Output Total 800 ml 700 ml Balance -320 ml -550 ml medications Current Medications Medications Dose Ordered Sig/Sean Route Start Time Stop Time Status Last Admin Dose Admin Guaifenesin/ Dextromethorphan 10 ml Q4HP PRN PO 06/08/24 11:00 06/26/24 09:32 10 ML Enoxaparin Sodium 40 mg DAILY SC 06/10/24 10:00 06/26/24 09:32 40 MG Albuterol 2.5 mg Q4HR NEB 06/11/24 11:45 06/26/24 07:13 2.5 MG Morphine Sulfate 1 mg Q4HPRN PRN IV 06/16/24 14:00 06/26/24 09:34 1 MG Docusate Sodium 100 mg BID PRN PO 06/16/24 14:00 06/26/24 09:32 100 MG Ondansetron HCl 4 mg Q4HP PRN IV 06/21/24 16:00 06/24/24 23:25 4 MG Oxycodone/ Acetaminophen 1 tab Q4HP PRN PO 06/21/24 16:00 Hold 06/24/24 23:25 1 TAB Metoclopramide HCl 10 mg Q8HPRN PRN IV 06/21/24 16:00 06/23/24 21:15 10 MG Acetaminophen 500 mg Q6HP PRN PO 06/21/24 17:00 Hold 06/23/24 09:50 500 MG Diphenhydramine HCl 25 mg Q6HP PRN PO 06/21/24 17:00 Prednisone 40 mg BID PO 06/22/24 10:00 06/27/24 09:59 06/26/24 09:32 40 MG Pantoprazole Sodium 40 mg DAILY IV 06/23/24 12:45 06/26/24 09:32 40 MG Morphine Sulfate 2 mg Q30MP PRN IV 06/23/24 21:15 Furosemide 20 mg BIDD IV 06/25/24 10:45 06/26/24 05:29 20 MG Lactulose 30 ml BID PO 06/25/24 22:00 06/26/24 09:32 30 ML Sodium Bicarbonate 650 mg QID PO 06/25/24 18:00 06/26/24 05:29 650 MG Examination: LUNGS:Normal, LUNGS:Abnormal, MSK:Normal laboratory and microbiology Laboratory Tests 06/26/24 05:27 06/24/24 05:27 Test 06/26/24 05:27 Range/Units Serum Glucose 120 H 74-106 mg/dL Microbiology Date/Time Source Procedure Growth Status 06/21/24 18:18 Blood Blood Culture - Preliminary NO GROWTH AFTER 72 HOURS OF INCUBATION. Resulted 06/21/24 14:30 Nose MRSA Screen - Final Complete 06/14/24 15:30 Sputum Gram Stain - Final Complete 06/14/24 15:30 Sputum Respiratory Culture - Final Complete Problem List/Assessment/Plan Problem List/Assessment/Plan hyponatremia likely secondary to IV hypotonic IVF Syndrome of inappropriate antidiuretic hormone secretion hyperkalemia AIDS PCP on bactrim IV now switched to p.o. PNA leukopenia r/o TB Recommendations Sounds sodium appropriately on slowly improving Avoid rapid correction of Na Furosemide 20 mg IV b.i.d. Fluid restriction Continue salt tablets ID consult will continue to follow Plan discussed with: Patient My Orders My Orders Orders - YONATHAN YAÑEZ MD Procedure Category Date Status Time Furosemide Injection PHA 06/25/24 In Process (Lasix Injection) 10:45 Maintain Fluid STANLEY 06/25/24 In Process Restrictions 10:34 Sodium Bicarb Tab PHA 06/25/24 In Process 18:00 Dietary Evaluation Review Comments: Encourage and monitor PO intake to meet 75% of his needs Expected Outcomes/Goals: free from symptoms, gradual weight gain. YONATHAN YAÑEZ MD Jun 26, 2024 10:34
--- NOTE | 2024-06-26 14:26 | DVHPN2 ---
Subjective PATIENT STATES THAT THE TREMORS HAVE IMPROVED WITH MEDICATION YESTERDAY. Reviewed: Care Plan, H&P, Labs, Medications, Previous Orders, Radiology, Other (Consultations) Changes from previous H/P or p: Changes General: No Night Sweats, No Fatigue Neurological: No Weakness, No Numbness Cardiovascular: No Chest Pain Respiratory: Cough, Shortness of breath Gastrointestinal: No Nausea Musculoskeletal: No leg pain Endocrine: No Cold Intolerance Hematology: No Abnormal Bleeding Objective Vitals Vital Signs Date Time Temp Pulse Resp B/P (MAP) Pulse Ox O2 Delivery O2 Flow Rate FiO2 06/26/24 13:40 118 16 99 06/26/24 13:34 Room Air 0.0 06/26/24 13:34 21 06/26/24 09:34 121/75 06/26/24 09:00 98.3 98.3 Intake/Output Intake and Output 06/26/24 07:00 Intake Total 630 ml Output Total 1500 ml Balance -870 ml Intake Oral 630 ml Output Urine Total 1500 ml # Voids 1 General Appearance: Alert, Oriented X3, Cooperative, moderate distress HEENT: Atraumatic, PERRLA Lungs: Other Cardiovascular: Regular rate, Normal S1, Normal S2, No murmurs Abdomen: Normal bowel sounds, Soft, No tenderness, No hepatospenomegaly Genitourinary: No Apparent Abnormalities Extremities: No edema Neuro: Normal speech, Sensation intact Skin: Dry, Intact Psych/Mental Status: Mental status NL, Mood NL Medications Current Medications Medications Dose Ordered Sig/Sean Route Start Time Stop Time Status Last Admin Dose Admin Guaifenesin/ Dextromethorphan 10 ml Q4HP PRN PO 06/08/24 11:00 06/26/24 09:32 10 ML Enoxaparin Sodium 40 mg DAILY SC 06/10/24 10:00 06/26/24 09:32 40 MG Albuterol 2.5 mg Q4HR NEB 06/11/24 11:45 06/26/24 13:34 2.5 MG Morphine Sulfate 1 mg Q4HPRN PRN IV 06/16/24 14:00 06/26/24 09:34 1 MG Docusate Sodium 100 mg BID PRN PO 06/16/24 14:00 06/26/24 09:32 100 MG Ondansetron HCl 4 mg Q4HP PRN IV 06/21/24 16:00 06/24/24 23:25 4 MG Oxycodone/ Acetaminophen 1 tab Q4HP PRN PO 06/21/24 16:00 Hold 06/24/24 23:25 1 TAB Metoclopramide HCl 10 mg Q8HPRN PRN IV 06/21/24 16:00 06/23/24 21:15 10 MG Acetaminophen 500 mg Q6HP PRN PO 06/21/24 17:00 Hold 06/23/24 09:50 500 MG Diphenhydramine HCl 25 mg Q6HP PRN PO 06/21/24 17:00 Pantoprazole Sodium 40 mg DAILY IV 06/23/24 12:45 06/26/24 09:32 40 MG Morphine Sulfate 2 mg Q30MP PRN IV 06/23/24 21:15 Furosemide 20 mg BIDD IV 06/25/24 10:45 06/26/24 05:29 20 MG Lactulose 30 ml BID PO 06/25/24 22:00 06/26/24 09:32 30 ML Sodium Bicarbonate 650 mg QID PO 06/25/24 18:00 06/26/24 12:00 650 MG Laboratory Results Laboratory Tests 06/24/24 05:27 06/26/24 05:27 Chemistry Test 06/26/24 05:27 Albumin 4.4 g/dL (3.2-4.8) Calcium Level 9.6 mg/dL (8.7-10.4) Total Protein 8.8 g/dL (5.7-8.2) H Coagulation Test 06/25/24 14:55 Prothrombin Time 11.8 sec (9.3-11.8) Prothrombin Time INR 1.13 (0.9-1.15) LFT Test 06/25/24 14:55 06/26/24 05:27 Direct Bilirubin 5.4 mg/dL (<0.3) H Alanine Aminotransferase (ALT) 1762 U/L (7-40) H Alkaline Phosphatase 625 U/L (46-116) H Aspartate Amino Transferase (AST) 2001 U/L (13-40) H Total Bilirubin 8.0 mg/dL (0.2-1.0) H Urinalysis Test 06/12/24 20:52 06/19/24 10:30 06/23/24 09:13 Urine Mucus Few (None Seen) Urine Sodium 76 mmol/L (40-220) Urine Color Yellow (Yellow) Urine Clarity Clear (Clear) Urine pH 6.5 (5.0-9.0) Urine Specific [place] 1.013 (1.001-1.035) Urine Protein Trace (Negative) H Urine Ketones Negative (Negative) Urine Blood Trace /uL (Negative) H Urine Nitrite Negative (Negative) Urine Bilirubin 1+ (Negative) Urine Urobilinogen 6 mg/dL (Negative) Urine Leukocyte Esterase Negative /uL (Negative) Urine RBC <1 /hpf (0 - 3) Urine WBC 1 /hpf (0 - 3) Urine Squamous Epithelial Cells None seen /hpf (<5) Urine Bacteria None seen /hpf (None Seen) Urine Osmolality 421 mOsm/kg Urine Glucose Normal mg/dL (Normal) Microbiology Microbiology Date/Time Source Procedure Growth Status 06/21/24 18:18 Blood Blood Culture - Preliminary NO GROWTH AFTER 72 HOURS OF INCUBATION. Resulted 06/21/24 14:30 Nose MRSA Screen - Final Complete 06/14/24 15:30 Sputum Gram Stain - Final Complete 06/14/24 15:30 Sputum Respiratory Culture - Final Complete Labs and/or images reviewed: Labs reviewed by me, Image(s) reviewed by me Assessment/Plan Assessment/Plan Impression: -acute hypoxic respiratory failure -multifocal pneumonia, probable P [place] -rule out tuberculosis -scoliosis -HIV/AIDS : New diagnosis -hyponatremia -SIADH -rhabdomyolysis from rigors and tremors Plan: Events: Patient was shivering has improved. Liver ultrasound reviewed. Continue IV diuresis per Nephrology -antiemetics -nephrology consultation -free water restriction -pain management: [place] -O2 supplementation to keep saturation greater 92% -pulmonary consultation -monitor for results bronchial alveolar wash -repeat labs in a.m. Total time spent with patient discussing and formulating plan of care: 35 minutes. This medical document was created using an electronic medical record system with [employer] dictation system. Although this document has been carefully reviewed, there may still be some phonetic and typographical errors. These areas are purely typographical due to imperfections of the software programs, and do not reflect any compromise in the patient's medical care. Plan discussed with: Patient, Other (RN) My Orders Orders - MATTHEW MAURER AGENCY RECRUITER Procedure Category Date Status Time Complete Blood Count LAB 06/27/24 Verified 05:00 Complete Blood Count LAB 06/28/24 Verified 05:00 Complete Blood Count LAB 06/29/24 Verified 05:00 Complete Blood Count LAB 06/30/24 Verified 05:00 Basic Metabolic Panel LAB 06/26/24 Logged 16:00 Comprehensive LAB 06/27/24 Verified Metabolic Panel 05:00 Comprehensive LAB 06/28/24 Verified Metabolic Panel 05:00 Comprehensive LAB 06/29/24 Verified Metabolic Panel 05:00 Creatine Kinase LAB 06/27/24 Verified 04:00 Meperidine Injection PHA 06/26/24 Verified (Demerol Injection) 14:30 Date of Service: Jun 26, 2024 Billing Provider: MATTHEW MAURER NP Common Visit Codes: [id number] INP/OBS CARE(HIGH) MATTHEW MAURER NP Jun 26, 2024 14:26
[2024-06-26 17:03] LABS: Opiate Scree,Urine Pos (NEGATIVE)
[2024-06-26 17:04] LABS: Phencyclidine Screen, Urine Neg (NEGATIVE)
[2024-06-26 17:17] LABS: Amphetamine Screen, Urine Neg (NEGATIVE); Barbiturate Scree,Urine Neg (NEGATIVE); Benzodiazephine Screen, Urine Neg (NEGATIVE); Cannabinoid Screen, Urine Neg (NEGATIVE); Cocaine Screen, Urine Neg (NEGATIVE)
[2024-06-26 17:20] LABS: Basophils # (auto) 0 10 ^3/uL (0-0.2); Eosinophils # (auto) 0 10 ^3/uL (0-0.8); Eosinophils % (auto) 0.1 % (0.0-7.0); Hemoglobin 11.1 g/dL (13.5-17.5); Lymphocytes # (auto) 0.2 10 ^3/uL (0.4-5.4); Mean Corpuscular Hgb Conc. 33.2 g/dL (32.0-36.0); Mean Corpuscular Volume 80.9 fL (80.0-100.0); Monocytes # (auto) 0.2 10 ^3/uL (0-1.3); Neutrophils # (auto) 1.5 10 ^3/uL (1.6-8.6); Platelet Count (auto) 111 10^3/uL (140-450)
--- NOTE | 2024-06-26 17:20 | DVHPN2 ---
Progress Note Date Seen: Jun 26, 2024 Resident Creating Document: LEONIE LIRIANO RESIDENT Has the PT tested + for MRSA If YES, has PT been informed?: Yes Medical Necessity Reason Pt with a Central, PICC or Fol: No Objective vital signs Vital Sign Date Time Temp Pulse Resp B/P (MAP) Pulse Ox O2 Delivery O2 Flow Rate FiO2 06/26/24 13:40 118 16 99 06/26/24 13:34 Room Air 0.0 06/26/24 13:34 21 06/26/24 13:00 98.7 121/71 (88) 98.7 Total Intake and Output 06/25/24 06/25/24 06/26/24 15:00 23:00 07:00 Intake Total 480 ml 150 ml Output Total 800 ml 700 ml Balance -320 ml -550 ml medications Current Medications Medications Dose Ordered Sig/Sean Route Start Time Stop Time Status Last Admin Dose Admin Guaifenesin/ Dextromethorphan 10 ml Q4HP PRN PO 06/08/24 11:00 06/26/24 09:32 10 ML Enoxaparin Sodium 40 mg DAILY SC 06/10/24 10:00 Hold 06/26/24 09:32 40 MG Albuterol 2.5 mg Q4HR NEB 06/11/24 11:45 06/26/24 13:34 2.5 MG Morphine Sulfate 1 mg Q4HPRN PRN IV 06/16/24 14:00 06/26/24 09:34 1 MG Docusate Sodium 100 mg BID PRN PO 06/16/24 14:00 06/26/24 09:32 100 MG Ondansetron HCl 4 mg Q4HP PRN IV 06/21/24 16:00 06/24/24 23:25 4 MG Oxycodone/ Acetaminophen 1 tab Q4HP PRN PO 06/21/24 16:00 Hold 06/24/24 23:25 1 TAB Metoclopramide HCl 10 mg Q8HPRN PRN IV 06/21/24 16:00 06/23/24 21:15 10 MG Diphenhydramine HCl 25 mg Q6HP PRN PO 06/21/24 17:00 Pantoprazole Sodium 40 mg DAILY IV 06/23/24 12:45 06/26/24 09:32 40 MG Morphine Sulfate 2 mg Q30MP PRN IV 06/23/24 21:15 Furosemide 20 mg BIDD IV 06/25/24 10:45 06/26/24 05:29 20 MG Lactulose 30 ml BID PO 06/25/24 22:00 06/26/24 09:32 30 ML Sodium Bicarbonate 650 mg QID PO 06/25/24 18:00 06/26/24 12:00 650 MG Meperidine HCl 12.5 mg Q4HP PRN IV 06/26/24 14:30 Examination CONSTITUTIONAL: Fever, night sweats, weight loss, Lymphadenopathy, ecchymoses, fatigue, yellow discoloration of skin and sclera DERMATOLOGIC: Rash, New/growing/changing skin lesions: Negative HEENT: Vision change, eye pain, Rhinorrhea, sinus pain, epistaxis, dysphagia, odynophagia, globus sensation, Change in hearing, tinnitus, vertigo, otalgia, Dental problems, oral ulcers or lesions ENDOCRINE: Weight change, heat or cold intolerance, tremor, insomnia, neck pain or swelling, Polyuria, polydipsia, polyphagia, Abnormal hair growth, change in nails CARDIOVASCULAR: Chest pain, palpitations, syncope, Edema, cyanosis, claudication, Orthopnea, paroxysmal nocturnal dyspnea: PULMONARY: Shortness of breath, dyspnea with exertion, Cough, hemoptysis, wheezing, chest pain GI: Nausea, vomiting, diarrhea, melena, hematochezia, Change in appetite, abdominal pain, change in bowel habits or stools : Dysuria, frequency, urgency, Urinary incontinence, hematuria, foamy urine, nocturia, Change in libido, erectile dysfunction, Change in menses, dysmenorrhea, dyspaerunia, pelvic pain MUSCULOSKELETAL: Joint swelling or pain, muscle pain, back pain NEUROLOGIC: Headache, scotoma, Change in smell or taste, change in facial muscles, Muscle weakness, paresthesias, anesthesia, Ataxia, change in speech PSYCHIATRIC: Depression, anxiety, hallucinations, britton, suicidal/homicidal thoughts, Binging, purging laboratory and microbiology Test 06/26/24 16:36 Range/Units Serum Glucose Pending Microbiology Date/Time Source Procedure Growth Status 06/25/24 16:06 Sputum Expectorated Sputum AFB Broth Culture Pending Resulted 06/25/24 16:06 Sputum Expectorated Sputum - Final Resulted 06/25/24 16:06 Sputum Expectorated Sputum - Final Resulted 06/25/24 16:06 Sputum Expectorated Sputum Acid Fast Bacilli Culture Pending Resulted 06/21/24 18:18 Blood Blood Culture - Preliminary NO GROWTH AFTER 72 HOURS OF INCUBATION. Resulted 06/21/24 14:30 Nose MRSA Screen - Final Complete Labs and/or images reviewed: Labs reviewed by me, Image(s) reviewed by me Problem List/Assessment/Plan Problem List/Assessment/Plan Reason for Consultation Transaminitis History of Present Illness A 28-year-old homosexual male patient; who was recently diagnosed with HIV, not on treatment; who presented with cough to [facility] and was transferred to [facility] for further evaluation and treatment. He has a history of homosexual activity presents with suspected sepsis, acute hypoxic respiratory failure, and bilateral pneumonia, possibly due to atypical infections. They have a productive cough, fever, tachycardia, and decreased oxygen saturation. The patient is on IV antibiotics, oxygen therapy, and nebulizer treatments, with close monitoring and consultations from infectious disease, nephrology and pulmonology teams. Additional concerns include normocytic anemia, elevated liver enzymes, mild hyponatremia, and an elevated D- dimer, with a chest angiogram ordered to rule out DVT. Denies any prior EGD or colonoscopy, family history negative for any GI malignancy. GI Assessment/ impression: #total hyperbilirubinemia, icterus #mild elevated ammonia #transaminitis significantly elevated, negative hepatitis panel, MRCP negative #fatty liver #gallbladder sludge MRCP negative #hyponatremia likely secondary to IV hypotonic IVF #hyperkalemia #AIDS #PJP pneumonia on Bactrim #leukopenia #history of travel to TB endemic areas/[place] r/o T #sepsis #neutropenia/leukopenia #Acute hypoxic respiratory failure #Recently diagnosed with HIV in the setting of homosexual male #Normocytic anemia; unclear etiology #Elevated D-dimer, negative CT PE #right lower lobe 2 cm nodule in lungs. #left adrenal nodule GI Plan: # medications: Pantoprazole 40 mg IV daily for GI prophylaxis. Hold Bactrim for now. Antiretroviral treatment to start as soon as possible/as per discretion of ID when LFT trends down. Hold Anticoagulation. 1 dose Vitamin K given. will consider Ursodeccoxylic acid and if needed FFP tomorrow. # labs: Check CD4 count, trend CMP by holding Bactrim, Need inpatient as well as outpatient close follow up of CMP. Follow Ammonia, CMP and PT/INR. # plan procedure: No need of in-hospital procedure, H&H stable. # diet: please avoid NSAIDs, alcohol, caffeine, spicy, highly acidic and caustic diets. # given HIV aids in immunocompromised states broad differential of hepatitis we will include cytomegalovirus, EBV virus, Mycobacterium avium complex or hematogenous seeding of pulmonary tuberculosis if found. # please scheduled follow up with GI as outpatient with Dr. Robins. Thank you so much for the opportunity to consult on your patient. GI team will follow the patient/ GI team signing off the patient. In case of any questions or concerns please feel free to reach out. Case an action plan discussed with Dr. Kiya Robins. Complex care planning needed total 47 minutes of detailed discussion. The patient and caregiver team agreed to the plan. Plan discussed with: Patient, Other My Orders My Orders Orders - LEONIE LIRIANO RESIDENT Procedure Category Date Status Time Precautions: STANLEY 06/25/24 In Process Neutropenic 19:37 Cd4/Cd8 Ratio Profile LAB 06/25/24 In Process 19:37 Cmv Igg/Igm Antibodies LAB 06/26/24 In Process 14:28 Ebv Acute Infection LAB 06/26/24 In Process Antibodies 14:36 Complete Blood Count LAB 06/26/24 In Process 14:42 Dietary Evaluation Review Comments: Encourage and monitor PO intake to meet 75% of his needs Expected Outcomes/Goals: free from symptoms, gradual weight gain. LEONIE LIRIANO RESIDENT Jun 26, 2024 17:20
[2024-06-26 17:23] LABS: Basophils % (auto) 0.7 % (0.0-2.0); Hematocrit 33.4 % (41.0-53.0); Lymphocytes % (auto) 10.5 % (10.0-50.0); Mean Corpuscular Hemoglobin 26.8 pg (28.0-32.0); Monocytes % (auto) 11.8 % (0.0-12.0); Neutrophils % (auto) 76.9 % (37.0-80.0); Nucleated Red Blood Cells % 0.2 %; Potassium 4.8 mmol/L (3.5-5.1); Red Blood Cells 4.13 10^6/uL (4.5-5.90)
[2024-06-26 17:25] LABS: Anion Gap 9 (5-15); Calcium 9.5 mg/dL (8.7-10.4); Carbon Dioxide 21 mmol/L (20-31)
[2024-06-26 17:36] LABS: BUN/Creatinine Ratio 53.9 (10.0-20.0); Blood Urea Nitrogen 48 mg/dL (9-23); Chloride 91 mmol/L (98-107); Glucose 140 mg/dL (74-106); Sodium 121 mmol/L (136-145)
[2024-06-26] MEDS: phytonadione 10 MG in SODIUM CHL 0.9% 50 ML IV ONE (18:22)
--- NOTE | 2024-06-26 22:57 | DVHPN2 ---
Progress Note - Dictate Date Seen: Jun 26, 2024 Has the PT tested + for MRSA If YES, has PT been informed?: Yes Medical Necessity Reason Pt with a Central, PICC or Fol: No Subjective Patient seen and examined at bedside. On room air Overnight events reviewed. vital signs Vital Sign Date Time Temp Pulse Resp B/P (MAP) Pulse Ox O2 Delivery O2 Flow Rate FiO2 06/26/24 22:45 105 16 100 06/26/24 22:37 Room Air 0.0 06/26/24 22:37 21 06/26/24 21:00 97.7 119/63 (81) 97.7 Total Intake and Output 06/25/24 06/25/24 06/26/24 15:00 23:00 07:00 Intake Total 480 ml 150 ml Output Total 800 ml 700 ml Balance -320 ml -550 ml medications Current Medications Medications Dose Ordered Sig/Sean Route Start Time Stop Time Status Last Admin Dose Admin Guaifenesin/ Dextromethorphan 10 ml Q4HP PRN PO 06/08/24 11:00 06/26/24 09:32 10 ML Albuterol 2.5 mg Q4HR NEB 06/11/24 11:45 06/26/24 22:36 2.5 MG Morphine Sulfate 1 mg Q4HPRN PRN IV 06/16/24 14:00 06/26/24 09:34 1 MG Docusate Sodium 100 mg BID PRN PO 06/16/24 14:00 06/26/24 09:32 100 MG Ondansetron HCl 4 mg Q4HP PRN IV 06/21/24 16:00 06/24/24 23:25 4 MG Metoclopramide HCl 10 mg Q8HPRN PRN IV 06/21/24 16:00 06/23/24 21:15 10 MG Diphenhydramine HCl 25 mg Q6HP PRN PO 06/21/24 17:00 Pantoprazole Sodium 40 mg DAILY IV 06/23/24 12:45 06/26/24 09:32 40 MG Morphine Sulfate 2 mg Q30MP PRN IV 06/23/24 21:15 Furosemide 20 mg BIDD IV 06/25/24 10:45 06/26/24 18:21 20 MG Lactulose 30 ml BID PO 06/25/24 22:00 06/26/24 09:32 30 ML Sodium Bicarbonate 650 mg QID PO 06/25/24 18:00 06/26/24 21:23 650 MG Meperidine HCl 12.5 mg Q4HP PRN IV 06/26/24 14:30 objective Gen.: Patient lying in bed in no apparent distress. On room air Head: Normocephalic, atraumatic. Eyes: EOMI/PERRLA. Ears: Normal hearing. Normal anatomy. Neck/trachea: Trachea midline, supple. Nose: Normal external anatomy. Mouth: Moist mucous membranes. Chest: Decreased air entry bilaterally. No wheezing or rhonchi. Cardiovascular: Positive S1, positive S2. Regular rate and rhythm. Abdomen: Positive bowel sounds in all 4 quadrants. Soft, non-tender, non- distended. : Deferred. Rectal: Deferred. Skin: Warm, dry. Intact. Extremities: 2+ radial pulses bilaterally. No lower extremity edema. Neuro: Awake, alert, oriented x3. No gross motor or sensory deficits. Cranial nerves II through XII intact. Gait not assessed. laboratory and microbiology Laboratory Tests 06/26/24 16:36 Test 06/26/24 16:36 Range/Units Serum Glucose 140 H 74-106 mg/dL Assessment/Plan Impression: Cough HIV (recent diagnosis) Anemia Elevated LFTs Atypical pneumonia SIADH Events: Remains on room air Supplemental oxygen PRN Induce sputum for AFB smear and culture to rule out TB Quantiferon was indeterminate. ID recommendations appreciated. Antiemetics PRN. GI recs appreciated. Bactrim on hold. Monitor WBC. Continue steroids - prednisone PO Incentive spirometry Diurese w/ Lasix as tolerated Monitor renal function Monitor electrolytes - supplement as necessary Hyponatremia w/ sodium 121 - continue to monitor closely Nephrology recommendations appreciated DVT prophylaxis w/ Lovenox Labs reviewed. Rest of plan as noted below Plan: On room air Supplemental oxygen PRN Titrate to keep O2 sats above 92%. 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 Monitor electrolytes. Supplement as necessary. Monitor ins and outs. DVT prophylaxis. Prognosis: Poor given patient's multiple co-morbidities. Rest of plan per hospitalist and other consultants. Thank you Dr. Cruz, for allowing me to participate in this patient's care. Further recommendations will depend on the patient's clinical course. Please do not hesitate to contact me if you have any questions or concerns. This medical document was created using an electronic medical record system with [employer] dictation system. Although these documentations are being carefully reviewed, there may still be some phonetic and typographical changes. The errors are purely typographical, due to imperfection on the software program, and do not reflect any compromise in the patient's medical care. Dietary Evaluation Review Comments: Encourage and monitor PO intake to meet 75% of his needs Expected Outcomes/Goals: free from symptoms, gradual weight gain. Plan discussed with: Patient, Other (AALIYAH Serna) ANGELIC OTOOLE MD Jun 26, 2024 22:57
[2024-06-27] VITALS (18 sets, daily range): BP systolic 99–121; BP diastolic 60–75; PULSE 104–156; RESP 16–22; TEMP 97.3–98.3; O2SAT 94–100
[2024-06-27 06:02] LABS: Hematocrit 34.1 % (41.0-53.0); Hemoglobin 11.5 g/dL (13.5-17.5); Mean Corpuscular Hgb Conc. 33.7 g/dL (32.0-36.0)
[2024-06-27 06:04] LABS: Mean Corpuscular Hemoglobin 27.1 pg (28.0-32.0); Mean Corpuscular Volume 80.4 fL (80.0-100.0); Platelet Count (auto) 103 10^3/uL (140-450); Red Blood Cells 4.24 10^6/uL (4.5-5.90); Red Cell Distribution Width 16.9 % (11.8-14.3)
[2024-06-27 06:06] LABS: Basos 1 % (Not Estab.); Eos 0 % (Not Estab.); Hematocrit 33.5 % (37.5-51.0); Hemoglobin 11.3 g/dL (13.0-17.7); Immature Granulocytes (Abs) 0 x10E3/uL (0.0-0.1); Lymphs 6 % (Not Estab.); Lymphs (Absolute) 0.1 x10E3/uL (0.7-3.1); MCH 26.9 pg (26.6-33.0); MCHC 33.7 g/dL (31.5-35.7); MCV 80 fL (79-97); Monocytes 13 % (Not Estab.); Monocytes (Absolute) 0.3 x10E3/uL (0.1-0.9); Neutrophils 78 % (Not Estab.); Neutrophils (Absolute) 1.7 x10E3/uL (1.4-7.0); Platelets 121 x10E3/uL (150-450); WBC 2.1 x10E3/uL (3.4-10.8)
[2024-06-27 06:14] LABS: INR 0.94 (0.9-1.15)
[2024-06-27 06:19] LABS: Albumin 4.1 g/dL (3.2-4.8); Anion Gap 8 (5-15); Calcium 9.5 mg/dL (8.7-10.4); Carbon Dioxide 22 mmol/L (20-31); Potassium 4.2 mmol/L (3.5-5.1)
[2024-06-27 06:27] LABS: BUN/Creatinine Ratio 63.4 (10.0-20.0)
[2024-06-27 06:40] LABS: White Blood Cell 1.6 10^3/uL (4.4-10.8)
[2024-06-27 06:41] LABS: Basophils % (manual) 0 (0.0-2.0); Blast Cells 0; Metamyelocytes % 0; Myelocytes % 0; Promyelocytes % 0; Reactive Lymphocytes 0
[2024-06-27 06:42] LABS: Alanine Aminotransferase 1296 U/L (7-40); Alkaline Phosphatase 643 U/L (46-116); Aspartate Aminotransferase 845 U/L (13-40); Bilirubin, Total 10.3 mg/dL (0.2-1.0); Blood Urea Nitrogen 45 mg/dL (9-23); Chloride 93 mmol/L (98-107); Creatine Kinase IFCC 291 U/L (46-171); Glucose 114 mg/dL (74-106); Sodium 123 mmol/L (136-145); Total Protein 8.6 g/dL (5.7-8.2)
[2024-06-27 08:06] LABS: CMV IgG Antibody >10.00 U/mL (0.00-0.59); CMV IgM Antibody <30.0 AU/mL (0.0-29.9); EBV Ab VCA IgM Antibody <36.0 U/mL (0.0-35.9); EBV Early Antigen IgG Antibody 64.6 U/mL (0.0-17.9)
[2024-06-27 08:55] LABS: Band Neutrophils % (manual) 4; Eosinophils % (manual) 1 (0-7); Lymphocytes % (manual) 10 (10.0-50.0); Monocytes % (manual) 19 (0-12)
[2024-06-27 08:56] LABS: Platelet Estimate Decreased
[2024-06-27] MEDS: MEPERIDINE HCL (25 MG/ML) 1ML VIAL IV PRN (10:17)
--- NOTE | 2024-06-27 10:18 | DVHPN2 ---
Progress Note - Dictate Date Seen: Jun 27, 2024 Has the PT tested + for MRSA If YES, has PT been informed?: Yes Medical Necessity Reason Pt with a Central, PICC or Fol: No Subjective LFTs slightly improving. no new events vital signs Vital Sign Date Time Temp Pulse Resp B/P (MAP) Pulse Ox O2 Delivery O2 Flow Rate FiO2 06/27/24 08:51 98.2 121 18 119/70 (86) 94 98.2 06/27/24 05:51 Room Air* 0 21 Total Intake and Output 06/26/24 06/26/24 06/27/24 14:59 22:59 06:59 Intake Total 291 ml 400 ml Output Total 1524 ml 2 ml Balance -1233 ml 398 ml medications Current Medications Medications Dose Ordered Sig/Sean Route Start Time Stop Time Status Last Admin Dose Admin Guaifenesin/ Dextromethorphan 10 ml Q4HP PRN PO 06/08/24 11:00 06/26/24 09:32 10 ML Albuterol 2.5 mg Q4HR NEB 06/11/24 11:45 06/27/24 05:51 2.5 MG Morphine Sulfate 1 mg Q4HPRN PRN IV 06/16/24 14:00 06/26/24 09:34 1 MG Docusate Sodium 100 mg BID PRN PO 06/16/24 14:00 06/26/24 09:32 100 MG Ondansetron HCl 4 mg Q4HP PRN IV 06/21/24 16:00 06/24/24 23:25 4 MG Metoclopramide HCl 10 mg Q8HPRN PRN IV 06/21/24 16:00 06/23/24 21:15 10 MG Diphenhydramine HCl 25 mg Q6HP PRN PO 06/21/24 17:00 Pantoprazole Sodium 40 mg DAILY IV 06/23/24 12:45 06/27/24 09:57 40 MG Morphine Sulfate 2 mg Q30MP PRN IV 06/23/24 21:15 Furosemide 20 mg BIDD IV 06/25/24 10:45 06/27/24 05:28 20 MG Lactulose 30 ml BID PO 06/25/24 22:00 06/27/24 09:57 30 ML Sodium Bicarbonate 650 mg QID PO 06/25/24 18:00 06/27/24 05:27 650 MG Meperidine HCl 12.5 mg Q4HP PRN IV 06/26/24 14:30 Nystatin 5 ml QID MT 06/27/24 12:00 UNV Carbamide Peroxide 5 drop Q12HR EACH EAR 06/27/24 10:00 UNV objective General Appearance: Alert, Oriented X3, Cooperative, No acute distress HEENT: Atraumatic Respiratory: Other (Scattered crackles; good air entry bilateral) Cardiovascular: Regular rate, Normal S1, Normal S2 Abdominal: Normal bowel sounds, Soft, No tenderness Neuro: Normal gait, Normal speech, Strength at 5/5 X4 ext, Normal tone, Sensation intact, Cranial nerves 3-12 NL, Reflexes 2+ Psych/Mental Status: Mental status NL, Mood NL laboratory and microbiology Laboratory Tests 06/27/24 05:35 Test 06/27/24 05:35 Range/Units Serum Glucose 114 H 74-106 mg/dL Assessment/Plan Patient is a 28-year-old male with elevated liver enzymes elevated bilirubin # hyponatremia SIADH AIDS Pneumocystis Jerovoci or Carini Pneumonia ( opportunistic infection) multifocal pneumonia: atypical in nature Possible PCP pneumonia pulmonary nodule Homosexual elevated LFT anemia Immunosuppressed Recommendations: LFTS improving send g6pd test for alternative rx option for PcP Pnuemonia Dc Bactrim ? drug induced but too high recommend GI consult monitor LFTS MRCP unremarkable for biliary dilation stop date of bactrim was 07/04/2024,and plan was to switch to prophylaxis dose severe hyponatremia, nephrology on board 06/25, Sputum culture pending AFB stain is negative x1 neg follow Quantiferon gold, indeterminate AFB screen x 3 pending; infection control HIV-1 RNA [PCR]: [id number]: needs ART therapy will start as outpt BAL sample to be sent for bacterial, fungal, AFB and viral cultures. follow 06/17/2024 : Chest x-ray showed Bilateral opacities which may reflect multifocal pneumonia. Prognosis guarded Thank you for consult Dietary Evaluation Review Comments: Encourage and monitor PO intake to meet 75% of his needs Expected Outcomes/Goals: free from symptoms, gradual weight gain. Plan discussed with: HOMERO Gray MD Jun 27, 2024 10:18
--- NOTE | 2024-06-27 10:55 | DVHPN2 ---
Subjective Patient denies any new symptoms. Continues to report having generalized weakness. Reviewed: Care Plan, H&P, Labs, Medications, Previous Orders, Radiology, Other (Consultations) Changes from previous H/P or p: No Changes General: No Night Sweats, No Fatigue Neurological: No Weakness, No Numbness Cardiovascular: No Chest Pain Respiratory: Cough, Shortness of breath Gastrointestinal: No Nausea Musculoskeletal: No leg pain Endocrine: No Cold Intolerance Hematology: No Abnormal Bleeding Objective Vitals Vital Signs Date Time Temp Pulse Resp B/P (MAP) Pulse Ox O2 Delivery O2 Flow Rate FiO2 06/27/24 10:17 121 18 119/70 06/27/24 08:51 98.2 94 98.2 06/27/24 05:51 Room Air* 0 21 Intake/Output Intake and Output 06/27/24 07:00 Intake Total 691 ml Output Total 1526 ml Balance -835 ml Intake Oral 640 ml IV Total 51 ml Output Urine Total 1522 ml Stool Total 4 ml # Bowel Movements 2 General Appearance: Alert, Oriented X3, Cooperative, moderate distress HEENT: Atraumatic, PERRLA Lungs: Other Cardiovascular: Regular rate, Normal S1, Normal S2, No murmurs Abdomen: Normal bowel sounds, Soft, No tenderness, No hepatospenomegaly Genitourinary: No Apparent Abnormalities Extremities: No edema Neuro: Normal speech, Sensation intact Skin: Dry, Intact Psych/Mental Status: Mental status NL, Mood NL Medications Current Medications Medications Dose Ordered Sig/Sean Route Start Time Stop Time Status Last Admin Dose Admin Guaifenesin/ Dextromethorphan 10 ml Q4HP PRN PO 06/08/24 11:00 06/26/24 09:32 10 ML Albuterol 2.5 mg Q4HR NEB 06/11/24 11:45 06/27/24 05:51 2.5 MG Morphine Sulfate 1 mg Q4HPRN PRN IV 06/16/24 14:00 06/26/24 09:34 1 MG Docusate Sodium 100 mg BID PRN PO 06/16/24 14:00 06/26/24 09:32 100 MG Ondansetron HCl 4 mg Q4HP PRN IV 06/21/24 16:00 06/24/24 23:25 4 MG Metoclopramide HCl 10 mg Q8HPRN PRN IV 06/21/24 16:00 06/23/24 21:15 10 MG Diphenhydramine HCl 25 mg Q6HP PRN PO 06/21/24 17:00 Pantoprazole Sodium 40 mg DAILY IV 06/23/24 12:45 06/27/24 09:57 40 MG Morphine Sulfate 2 mg Q30MP PRN IV 06/23/24 21:15 Furosemide 20 mg BIDD IV 06/25/24 10:45 06/27/24 05:28 20 MG Lactulose 30 ml BID PO 06/25/24 22:00 06/27/24 09:57 30 ML Sodium Bicarbonate 650 mg QID PO 06/25/24 18:00 06/27/24 05:27 650 MG Meperidine HCl 12.5 mg Q4HP PRN IV 06/26/24 14:30 06/27/24 10:17 12.5 MG Nystatin 5 ml QID MT 06/27/24 12:00 Carbamide Peroxide 5 drop Q12HR EACH EAR 06/27/24 10:00 Laboratory Results Laboratory Tests 06/27/24 05:35 Chemistry Test 06/26/24 16:36 06/27/24 05:35 Calcium Level 9.5 mg/dL (8.7-10.4) 9.5 mg/dL (8.7-10.4) Albumin 4.1 g/dL (3.2-4.8) Total Protein 8.6 g/dL (5.7-8.2) H Coagulation Test 06/27/24 05:35 Prothrombin Time 10.0 sec (9.3-11.8) Prothrombin Time INR 0.94 (0.9-1.15) LFT Test 06/27/24 05:35 Alanine Aminotransferase (ALT) 1296 U/L (7-40) H Alkaline Phosphatase 643 U/L (46-116) H Aspartate Amino Transferase (AST) 845 U/L (13-40) H Total Bilirubin 10.3 mg/dL (0.2-1.0) H Urinalysis Test 06/12/24 20:52 06/19/24 10:30 06/23/24 09:13 06/26/24 16:32 Urine Mucus Few (None Seen) Urine Sodium 76 mmol/L (40-220) Urine Color Yellow (Yellow) Urine Clarity Clear (Clear) Urine pH 6.5 (5.0-9.0) Urine Specific [place] 1.013 (1.001-1.035) Urine Protein Trace (Negative) H Urine Ketones Negative (Negative) Urine Blood Trace /uL (Negative) H Urine Nitrite Negative (Negative) Urine Bilirubin 1+ (Negative) Urine Urobilinogen 6 mg/dL (Negative) Urine Leukocyte Esterase Negative /uL (Negative) Urine RBC <1 /hpf (0 - 3) Urine WBC 1 /hpf (0 - 3) Urine Squamous Epithelial Cells None seen /hpf (<5) Urine Bacteria None seen /hpf (None Seen) Urine Glucose Normal mg/dL (Normal) Urine Osmolality 752 mOsm/kg Microbiology Microbiology Date/Time Source Procedure Growth Status 06/25/24 16:06 Sputum Expectorated Sputum AFB Broth Culture Pending Resulted 06/25/24 16:06 Sputum Expectorated Sputum - Final Resulted 06/25/24 16:06 Sputum Expectorated Sputum - Final Resulted 06/25/24 16:06 Sputum Expectorated Sputum Acid Fast Bacilli Culture Pending Resulted 06/21/24 18:18 Blood Blood Culture - Final NO GROWTH AFTER 5 DAYS OF INCUBATION. Complete 06/21/24 14:30 Nose MRSA Screen - Final Complete Labs and/or images reviewed: Labs reviewed by me, Image(s) reviewed by me Assessment/Plan Assessment/Plan Impression: -acute hypoxic respiratory failure -multifocal pneumonia, probable P [place] -rule out tuberculosis -scoliosis -HIV/AIDS : New diagnosis -hyponatremia -SIADH -rhabdomyolysis from rigors and tremors -? Oral Jennie Plan: Events: LFTs are improving. Patient with pancytopenia. TB cultures pending. Continues to report having trouble with ears. Start Debrox and nystatin swish and swallow for oral Jennie. -antiemetics -nephrology consultation -free water restriction -pain management: Vista -O2 supplementation to keep saturation greater 92% -pulmonary consultation -monitor for results bronchial alveolar wash -repeat labs in a.m. Total time spent with patient discussing and formulating plan of care: 35 minutes. This medical document was created using an electronic medical record system with [employer] system. Although this document has been carefully reviewed, there may still be some phonetic and typographical errors. These areas are purely typographical due to imperfections of the software programs, and do not reflect any compromise in the patient's medical care. Plan discussed with: Patient, Other (RN) My Orders Orders - MATTHEW MAURER NP Procedure Category Date Status Time Complete Blood Count LAB 06/28/24 Verified 05:00 Complete Blood Count LAB 06/29/24 Verified 05:00 Complete Blood Count LAB 06/30/24 Verified 05:00 Comprehensive LAB 06/28/24 Verified Metabolic Panel 05:00 Comprehensive LAB 06/29/24 Verified Metabolic Panel 05:00 Meperidine Injection PHA 06/26/24 In Process (Demerol Injection) 14:30 Nystatin PHA 06/27/24 In Process (Mouth-Throat) 12:00 Carbamide Peroxide PHA 06/27/24 In Process Otic (Ear) (Debrox Ot 10:00 Date of Service: Jun 27, 2024 Billing Provider: MATTHEW MAURER NP Common Visit Codes: [id number] INP/OBS CARE(HIGH) MATTHEW MAURER NP Jun 27, 2024 10:55
[2024-06-27] MEDS: SODIUM CHL 3% HYPERTONIC 500 ML BAG IN ONE (10:56)
[2024-06-27] MEDS: NYSTATIN (MOUTH-THROAT) 500,000 UNITS/5 ML SUSP MT SCH (12:21)
[2024-06-27] MEDS: CARBAMIDE PEROXIDE 6.5% OTIC(EAR) SOLN 15ML EACH EAR SCH (12:22)
--- NOTE | 2024-06-27 15:59 | DVHPN2 ---
Progress Note Date Seen: Jun 27, 2024 Has the PT tested + for MRSA If YES, has PT been informed?: Yes Medical Necessity Reason Pt with a Central, PICC or Fol: No Subjective Patient reports: No new complaints Other Systems: Patient seen and examined by myself today in follow-up Objective vital signs Vital Sign Date Time Temp Pulse Resp B/P (MAP) Pulse Ox O2 Delivery O2 Flow Rate FiO2 06/27/24 13:53 127 16 99 06/27/24 13:45 Room Air* 0 06/27/24 12:58 97.6 118/75 (89) 97.6 Total Intake and Output 06/26/24 06/26/24 06/27/24 14:59 22:59 06:59 Intake Total 291 ml 400 ml Output Total 1524 ml 2 ml Balance -1233 ml 398 ml medications Current Medications Medications Dose Ordered Sig/Sean Route Start Time Stop Time Status Last Admin Dose Admin Guaifenesin/ Dextromethorphan 10 ml Q4HP PRN PO 06/08/24 11:00 06/26/24 09:32 10 ML Albuterol 2.5 mg Q4HR NEB 06/11/24 11:45 06/27/24 13:45 2.5 MG Morphine Sulfate 1 mg Q4HPRN PRN IV 06/16/24 14:00 06/26/24 09:34 1 MG Docusate Sodium 100 mg BID PRN PO 06/16/24 14:00 06/26/24 09:32 100 MG Ondansetron HCl 4 mg Q4HP PRN IV 06/21/24 16:00 06/24/24 23:25 4 MG Metoclopramide HCl 10 mg Q8HPRN PRN IV 06/21/24 16:00 06/23/24 21:15 10 MG Diphenhydramine HCl 25 mg Q6HP PRN PO 06/21/24 17:00 Pantoprazole Sodium 40 mg DAILY IV 06/23/24 12:45 06/27/24 09:57 40 MG Morphine Sulfate 2 mg Q30MP PRN IV 06/23/24 21:15 Furosemide 20 mg BIDD IV 06/25/24 10:45 06/27/24 05:28 20 MG Lactulose 30 ml BID PO 06/25/24 22:00 06/27/24 09:57 30 ML Sodium Bicarbonate 650 mg QID PO 06/25/24 18:00 06/27/24 12:21 650 MG Meperidine HCl 12.5 mg Q4HP PRN IV 06/26/24 14:30 06/27/24 10:17 12.5 MG Nystatin 5 ml QID MT 06/27/24 12:00 06/27/24 12:21 5 ML Carbamide Peroxide 5 drop Q12HR EACH EAR 06/27/24 10:00 06/27/24 12:22 5 DROP Examination: LUNGS:Normal, CVS:Normal, MSK:Normal laboratory and microbiology Laboratory Tests 06/27/24 05:35 Test 06/27/24 05:35 Range/Units Serum Glucose 114 H 74-106 mg/dL Microbiology Date/Time Source Procedure Growth Status 06/25/24 16:06 Sputum Expectorated Sputum AFB Broth Culture Pending Resulted 06/25/24 16:06 Sputum Expectorated Sputum - Final Resulted 06/25/24 16:06 Sputum Expectorated Sputum - Final Resulted 06/25/24 16:06 Sputum Expectorated Sputum Acid Fast Bacilli Culture Pending Resulted 06/21/24 18:18 Blood Blood Culture - Final NO GROWTH AFTER 5 DAYS OF INCUBATION. Complete 06/21/24 14:30 Nose MRSA Screen - Final Complete Problem List/Assessment/Plan Problem List/Assessment/Plan hyponatremia likely secondary to SIADH aggravated by IV hypotonic solution Syndrome of inappropriate antidiuretic hormone secretion hyperkalemia AIDS PCP on bactrim IV now switched to p.o. PNA leukopenia r/o TB Recommendations Sounds sodium appropriately on slowly improving Avoid rapid correction of Na Furosemide 20 mg IV b.i.d. Fluid restriction Continue salt tablets ID consult will continue to follow Plan discussed with: Patient Dietary Evaluation Review Comments: Encourage and monitor PO intake to meet 75% of his needs Expected Outcomes/Goals: free from symptoms, gradual weight gain. YONATHAN YAÑEZ MD Jun 27, 2024 15:59
[2024-06-27 16:06] LABS: % CD 4 Pos Lymph 9.6 % (30.8-58.5); % CD 8 Pos Lymph 88.2 % (12.0-35.5); Absolute CD 4 Helper 10 /uL (359-1519); CD4/CD8 Ratio 0.11 (0.92-3.72)
--- NOTE | 2024-06-27 21:44 | DVHPN2 ---
Progress Note - Dictate Date Seen: Jun 27, 2024 Has the PT tested + for MRSA If YES, has PT been informed?: Yes Medical Necessity Reason Pt with a Central, PICC or Fol: No Subjective Pt seen at bedside In isolation C/o fatigue and weakness and wants to sleep all the time Liver enzymes and WBC trending down Denies any rectal bleeding today Lovenox has been put on hold vital signs Vital Sign Date Time Temp Pulse Resp B/P (MAP) Pulse Ox O2 Delivery O2 Flow Rate FiO2 06/27/24 21:07 98.3 156 16 99/60 (73) 97 98.3 06/27/24 19:14 Room Air 06/27/24 19:14 0 21 Total Intake and Output 06/26/24 06/26/24 06/27/24 15:00 23:00 07:00 Intake Total 291 ml 400 ml Output Total 1524 ml 2 ml Balance -1233 ml 398 ml medications Current Medications Medications Dose Ordered Sig/Sean Route Start Time Stop Time Status Last Admin Dose Admin Guaifenesin/ Dextromethorphan 10 ml Q4HP PRN PO 06/08/24 11:00 06/26/24 09:32 10 ML Albuterol 2.5 mg Q4HR NEB 06/11/24 11:45 06/27/24 19:14 2.5 MG Morphine Sulfate 1 mg Q4HPRN PRN IV 06/16/24 14:00 06/26/24 09:34 1 MG Docusate Sodium 100 mg BID PRN PO 06/16/24 14:00 06/26/24 09:32 100 MG Ondansetron HCl 4 mg Q4HP PRN IV 06/21/24 16:00 06/24/24 23:25 4 MG Metoclopramide HCl 10 mg Q8HPRN PRN IV 06/21/24 16:00 06/23/24 21:15 10 MG Diphenhydramine HCl 25 mg Q6HP PRN PO 06/21/24 17:00 Pantoprazole Sodium 40 mg DAILY IV 06/23/24 12:45 06/27/24 09:57 40 MG Morphine Sulfate 2 mg Q30MP PRN IV 06/23/24 21:15 Furosemide 20 mg BIDD IV 06/25/24 10:45 06/27/24 17:31 20 MG Lactulose 30 ml BID PO 06/25/24 22:00 06/27/24 09:57 30 ML Sodium Bicarbonate 650 mg QID PO 06/25/24 18:00 06/27/24 17:30 650 MG Meperidine HCl 12.5 mg Q4HP PRN IV 06/26/24 14:30 06/27/24 10:17 12.5 MG Nystatin 5 ml QID MT 06/27/24 12:00 06/27/24 17:30 5 ML Carbamide Peroxide 5 drop Q12HR EACH EAR 06/27/24 10:00 06/27/24 12:22 5 DROP objective General Appearance: Alert, Oriented X3, Cooperative, mild distress; appears chronically ill HEENT: Atraumatic, PERRLA Lungs: Other, bilateral rhonchi Cardiovascular: Regular rate, Normal S1, Normal S2, No murmurs Abdomen: Normal bowel sounds, Soft, No tenderness, No hepatospenomegaly Genitourinary: No Apparent Abnormalities Extremities: No edema Neuro: Normal speech, Sensation intact Skin: Dry, Intact Psych/Mental Status: Mental status NL, Mood NL laboratory and microbiology Laboratory Tests 06/27/24 05:35 Test 06/27/24 05:35 Range/Units Serum Glucose 114 H 74-106 mg/dL Problems(with codes): (1) Elevated liver enzymes (2) Atypical pneumonia (3) HIV (human immunodeficiency virus infection) (4) AIDS (acquired immune deficiency syndrome) Prognosis Plan Continue to monitor labs Appreciate ID input and help with the management Patient will need treatment for HIV as an outpatient G6 PD testing for alternative treatment for possible PCP pneumonia Dietary Evaluation Review Comments: Encourage and monitor PO intake to meet 75% of his needs Expected Outcomes/Goals: free from symptoms, gradual weight gain. Plan discussed with: Patient JOB MCNEIL MD Jun 27, 2024 21:44
[2024-06-27 22:03] LABS: Base Excess 1.8 mmol/L (-2.0-3.0)
[2024-06-27] MEDS: dilTIAZem 25 MG/5 ML VIAL IV ONE (22:22)
--- NOTE | 2024-06-27 23:24 | DVHPN2 ---
Progress Note - Dictate Date Seen: Jun 27, 2024 Has the PT tested + for MRSA If YES, has PT been informed?: Yes Medical Necessity Reason Pt with a Central, PICC or Fol: No Subjective Patient seen and examined at bedside. On room air Overnight events reviewed. vital signs Vital Sign Date Time Temp Pulse Resp B/P (MAP) Pulse Ox O2 Delivery O2 Flow Rate FiO2 06/27/24 23:04 120 22 100 06/27/24 22:58 Room Air* 0 06/27/24 21:07 98.3 99/60 (73) 98.3 Total Intake and Output 06/26/24 06/26/24 06/27/24 15:00 23:00 07:00 Intake Total 291 ml 400 ml Output Total 1524 ml 2 ml Balance -1233 ml 398 ml medications Current Medications Medications Dose Ordered Sig/Sean Route Start Time Stop Time Status Last Admin Dose Admin Guaifenesin/ Dextromethorphan 10 ml Q4HP PRN PO 06/08/24 11:00 06/26/24 09:32 10 ML Albuterol 2.5 mg Q4HR NEB 06/11/24 11:45 06/27/24 22:58 2.5 MG Morphine Sulfate 1 mg Q4HPRN PRN IV 06/16/24 14:00 06/26/24 09:34 1 MG Docusate Sodium 100 mg BID PRN PO 06/16/24 14:00 06/26/24 09:32 100 MG Ondansetron HCl 4 mg Q4HP PRN IV 06/21/24 16:00 06/24/24 23:25 4 MG Metoclopramide HCl 10 mg Q8HPRN PRN IV 06/21/24 16:00 06/23/24 21:15 10 MG Diphenhydramine HCl 25 mg Q6HP PRN PO 06/21/24 17:00 Pantoprazole Sodium 40 mg DAILY IV 06/23/24 12:45 06/27/24 09:57 40 MG Morphine Sulfate 2 mg Q30MP PRN IV 06/23/24 21:15 Furosemide 20 mg BIDD IV 06/25/24 10:45 06/27/24 17:31 20 MG Lactulose 30 ml BID PO 06/25/24 22:00 06/27/24 09:57 30 ML Sodium Bicarbonate 650 mg QID PO 06/25/24 18:00 06/27/24 22:58 650 MG Meperidine HCl 12.5 mg Q4HP PRN IV 06/26/24 14:30 06/27/24 10:17 12.5 MG Nystatin 5 ml QID MT 06/27/24 12:00 06/27/24 22:58 5 ML Carbamide Peroxide 5 drop Q12HR EACH EAR 06/27/24 10:00 06/27/24 23:08 5 DROP objective Gen.: Patient lying in bed in no apparent distress. On room air Head: Normocephalic, atraumatic. Eyes: EOMI/PERRLA. Ears: Normal hearing. Normal anatomy. Neck/trachea: Trachea midline, supple. Nose: Normal external anatomy. Mouth: Moist mucous membranes. Chest: Decreased air entry bilaterally. No wheezing or rhonchi. Cardiovascular: Positive S1, positive S2. Regular rate and rhythm. Abdomen: Positive bowel sounds in all 4 quadrants. Soft, non-tender, non- distended. : Deferred. Rectal: Deferred. Skin: Warm, dry. Intact. Extremities: 2+ radial pulses bilaterally. No lower extremity edema. Neuro: Awake, alert, oriented x3. No gross motor or sensory deficits. Cranial nerves II through XII intact. Gait not assessed. laboratory and microbiology Laboratory Tests 06/27/24 05:35 Test 06/27/24 05:35 Range/Units Serum Glucose 114 H 74-106 mg/dL Assessment/Plan Impression: Cough HIV (recent diagnosis) Anemia Elevated LFTs Atypical pneumonia SIADH Events: Remains on room air Supplemental oxygen PRN Labs reviewed. Sputum sent for AFB smear and culture to rule out TB Quantiferon was indeterminate. Stop abx - Bactrim on hold. ID recommendations appreciated. Monitor WBC. Antiemetics PRN. GI recs appreciated. Incentive spirometry Diurese w/ Lasix as tolerated Monitor renal function Monitor electrolytes - supplement as necessary Hyponatremia w/ sodium 123 - continue to monitor closely Nephrology recommendations appreciated DVT prophylaxis w/ Lovenox Labs reviewed. Rest of plan as noted below Plan: On room air Supplemental oxygen PRN Titrate to keep O2 sats above 92%. 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 Monitor electrolytes. Supplement as necessary. Monitor ins and outs. DVT prophylaxis. Prognosis: Poor given patient's multiple co-morbidities. Rest of plan per hospitalist and other consultants. Thank you Dr. Cruz, for allowing me to participate in this patient's care. Further recommendations will depend on the patient's clinical course. Please do not hesitate to contact me if you have any questions or concerns. This medical document was created using an electronic medical record system with [employer] dictation system. Although these documentations are being carefully reviewed, there may still be some phonetic and typographical changes. The errors are purely typographical, due to imperfection on the software program, and do not reflect any compromise in the patient's medical care. Dietary Evaluation Review Comments: Encourage and monitor PO intake to meet 75% of his needs Expected Outcomes/Goals: free from symptoms, gradual weight gain. Plan discussed with: Patient, Other (AALIYAH Serna) ANGELIC OTOOLE MD Jun 27, 2024 23:24
[2024-06-28] VITALS (12 sets, daily range): BP systolic 101–114; BP diastolic 34–68; PULSE 99–147; RESP 16–20; TEMP 97–98.7; O2SAT 90–100
--- NOTE | 2024-06-28 00:47 | DVH ---
EXAM: XY CHEST PORTABLE CLINICAL HISTORY: HR >130's TECHNIQUE: Single AP view of the chest WID: COMPARISON: XY CHEST XRAY 1 VIEW on DOS: 06/25/24 FINDINGS: Lines and tubes: None Chest: The heart size and pulmonary vasculature is within normal limits. No pleural effusion, pneumothorax, or consolidation. The osseous structures are grossly intact. IMPRESSION: No acute cardiopulmonary abnormality.
[2024-06-28] MEDS: LABETALOL HCL 20 MG/4 ML VL IV ONE (05:06)
[2024-06-28 06:47] LABS: Hematocrit 35.2 % (41.0-53.0); Hemoglobin 11.8 g/dL (13.5-17.5); Mean Corpuscular Hemoglobin 27.3 pg (28.0-32.0); Mean Corpuscular Hgb Conc. 33.6 g/dL (32.0-36.0); Mean Corpuscular Volume 81.1 fL (80.0-100.0); Platelet Count (auto) 127 10^3/uL (140-450); Red Blood Cells 4.35 10^6/uL (4.5-5.90); Red Cell Distribution Width 17.1 % (11.8-14.3); White Blood Cell 2.2 10^3/uL (4.4-10.8)
[2024-06-28 07:01] LABS: Albumin 4.1 g/dL (3.2-4.8); Anion Gap 8 (5-15); Carbon Dioxide 21 mmol/L (20-31); Potassium 4.4 mmol/L (3.5-5.1)
[2024-06-28 07:03] LABS: Alanine Aminotransferase 848 U/L (7-40); Alkaline Phosphatase 700 U/L (46-116); Aspartate Aminotransferase 519 U/L (13-40); Bilirubin, Total 11.6 mg/dL (0.2-1.0); Blood Urea Nitrogen 37 mg/dL (9-23); Chloride 91 mmol/L (98-107); Glucose 111 mg/dL (74-106); Sodium 120 mmol/L (136-145); Total Protein 8.3 g/dL (5.7-8.2)
[2024-06-28 07:17] LABS: Basophils % (manual) 0 (0.0-2.0); Blast Cells 0; Eosinophils % (manual) 0 (0-7); Metamyelocytes % 0; Myelocytes % 0; Promyelocytes % 0; Reactive Lymphocytes 0
[2024-06-28 07:24] LABS: Band Neutrophils % (manual) 2; Large Platelets FEW; Lymphocytes % (manual) 26 (10.0-50.0); Monocytes % (manual) 25 (0-12); Platelet Estimate Decrea; Stomatocytes Few
[2024-06-28 07:26] LABS: Hypochromia Slight
[2024-06-28 07:47] LABS: BUN/Creatinine Ratio 55.2 (10.0-20.0)
--- NOTE | 2024-06-28 12:39 | DVHPN2 ---
Progress Note Date Seen: Jun 28, 2024 Resident Creating Document: LEONIE LIRIANO RESIDENT Has the PT tested + for MRSA If YES, has PT been informed?: Yes Medical Necessity Reason Pt with a Central, PICC or Fol: No Objective vital signs Vital Sign Date Time Temp Pulse Resp B/P (MAP) Pulse Ox O2 Delivery O2 Flow Rate FiO2 06/28/24 10:56 111 18 99 06/28/24 09:00 98.3 101/34 (56) 98.3 06/28/24 08:00 Room Air* 0 21 Total Intake and Output 06/27/24 06/27/24 06/28/24 15:00 23:00 07:00 Intake Total 230 ml 210 ml Output Total 500 ml 200 ml 300 ml Balance -500 ml 30 ml -90 ml medications Current Medications Medications Dose Ordered Sig/Sean Route Start Time Stop Time Status Last Admin Dose Admin Guaifenesin/ Dextromethorphan 10 ml Q4HP PRN PO 06/08/24 11:00 06/26/24 09:32 10 ML Morphine Sulfate 1 mg Q4HPRN PRN IV 06/16/24 14:00 06/26/24 09:34 1 MG Docusate Sodium 100 mg BID PRN PO 06/16/24 14:00 06/26/24 09:32 100 MG Ondansetron HCl 4 mg Q4HP PRN IV 06/21/24 16:00 06/24/24 23:25 4 MG Metoclopramide HCl 10 mg Q8HPRN PRN IV 06/21/24 16:00 06/23/24 21:15 10 MG Diphenhydramine HCl 25 mg Q6HP PRN PO 06/21/24 17:00 Morphine Sulfate 2 mg Q30MP PRN IV 06/23/24 21:15 Furosemide 20 mg BIDD IV 06/25/24 10:45 06/27/24 17:31 20 MG Lactulose 30 ml BID PO 06/25/24 22:00 06/27/24 09:57 30 ML Sodium Bicarbonate 650 mg QID PO 06/25/24 18:00 06/28/24 11:02 650 MG Meperidine HCl 12.5 mg Q4HP PRN IV 06/26/24 14:30 06/27/24 10:17 12.5 MG Nystatin 5 ml QID MT 06/27/24 12:00 06/28/24 11:02 5 ML Carbamide Peroxide 5 drop Q12HR EACH EAR 06/27/24 10:00 06/28/24 11:20 5 DROP Pantoprazole Sodium 40 mg DAILY@0600 PO 06/29/24 06:00 Ursodiol 300 mg BID PO 06/28/24 22:00 UNV Examination: GENERAL:Abnormal (overall sick looking. ), HEENT:Normal, NECK:Normal, LUNGS:Normal, CVS:Normal, ABDOMEN:Normal, MSK:Normal, SKIN:Abnormal (icterus), NEURO:Normal laboratory and microbiology Laboratory Tests 06/28/24 06:00 Test 06/28/24 06:00 Range/Units Serum Glucose 111 H 74-106 mg/dL Microbiology Date/Time Source Procedure Growth Status 06/25/24 16:06 Sputum Expectorated Sputum AFB Broth Culture Pending Resulted 06/25/24 16:06 Sputum Expectorated Sputum - Final Resulted 06/25/24 16:06 Sputum Expectorated Sputum - Final Resulted 06/25/24 16:06 Sputum Expectorated Sputum Acid Fast Bacilli Culture Pending Resulted 06/21/24 18:18 Blood Blood Culture - Final NO GROWTH AFTER 5 DAYS OF INCUBATION. Complete 06/21/24 14:30 Nose MRSA Screen - Final Complete Labs and/or images reviewed: Labs reviewed by me, Image(s) reviewed by me Problem List/Assessment/Plan Problem List/Assessment/Plan Reason for Consultation Transaminitis History of Present Illness A 28-year-old homosexual male patient; who was recently diagnosed with HIV, not on treatment; who presented with cough to [facility] and was transferred to [facility] for further evaluation and treatment. He has a history of homosexual activity presents with suspected sepsis, acute hypoxic respiratory failure, and bilateral pneumonia, possibly due to atypical infections. They have a productive cough, fever, tachycardia, and decreased oxygen saturation. The patient is on IV antibiotics, oxygen therapy, and nebulizer treatments, with close monitoring and consultations from infectious disease, nephrology and pulmonology teams. Additional concerns include normocytic anemia, elevated liver enzymes, mild hyponatremia, and an elevated D- dimer, with a chest angiogram ordered to rule out DVT. Denies any prior EGD or colonoscopy, family history negative for any GI malignancy. Having recurrent diarrhea. GI Assessment/ impression: #Likely diarrhea of AIDS with opportunistic # CD 4 < 10 high risk for opportunistic infection #total hyperbilirubinemia, icterus #possible CMV / EBV hepatitis #mild elevated ammonia #transaminitis significantly elevated, negative hepatitis panel, MRCP negative #fatty liver #gallbladder sludge MRCP negative - #hyponatremia likely secondary to IV hypotonic IVF #hyperkalemia #AIDS #PJP pneumonia on Bactrim #leukopenia #history of travel to TB endemic areas/[place] r/o T #sepsis #neutropenia/leukopenia #Acute hypoxic respiratory failure #Recently diagnosed with HIV in the setting of homosexual male #Normocytic anemia; unclear etiology #Elevated D-dimer, negative CT PE #right lower lobe 2 cm nodule in lungs. #left adrenal nodule GI Plan: # medications: Pantoprazole 40 mg IV daily for GI prophylaxis. Hold Bactrim for now. Antiretroviral treatment to start as soon as possible/as per discretion of ID when LFT trends down. Hold Anticoagulation. 1 dose Vitamin K given. 300 mg po bid Ursodeccoxylic acid and if needed FFP tomorrow. # labs: trend CMP by holding Bactrim, Need inpatient as well as outpatient close follow up of CMP. Follow Ammonia, CMP and PT/INR. check stool culture, stool wbc, c diff and ova parasite. # plan procedure: No need of in-hospital procedure, H&H stable. # diet: please avoid NSAIDs, alcohol, caffeine, spicy, highly acidic and caustic diets. # please scheduled follow up with GI as outpatient with Dr. Robins. Thank you so much for the opportunity to consult on your patient. GI team will follow the patient. In case of any questions or concerns please feel free to reach out. Case an action plan discussed with Dr. Kiya Robins. Complex care planning needed total 43 minutes of detailed discussion. The patient and caregiver team agreed to the plan. Plan discussed with: Patient, Other (primary team, RN) My Orders My Orders Orders - LEONIE LIRIANO Procedure Category Date Status Time Ursodiol (Actigall) PHA 06/28/24 Logged 22:00 Dietary Evaluation Review Comments: Encourage and monitor PO intake to meet 75% of his needs Expected Outcomes/Goals: free from symptoms, gradual weight gain. LEONIE LIRIANO RESIDENT Jun 28, 2024 12:39
--- NOTE | 2024-06-28 13:07 | DVHPN2 ---
Subjective Patient denies any new symptoms. Continues to report having generalized weakness. Reviewed: Care Plan, H&P, Labs, Medications, Previous Orders, Radiology, Other (Consultations) Changes from previous H/P or p: No Changes General: No Night Sweats, No Fatigue Neurological: No Weakness, No Numbness Cardiovascular: No Chest Pain Respiratory: Cough, Shortness of breath Gastrointestinal: No Nausea Musculoskeletal: No leg pain Endocrine: No Cold Intolerance Hematology: No Abnormal Bleeding Objective Vitals Vital Signs Date Time Temp Pulse Resp B/P (MAP) Pulse Ox O2 Delivery O2 Flow Rate FiO2 06/28/24 10:56 111 18 99 06/28/24 09:00 98.3 101/34 (56) 98.3 06/28/24 08:00 Room Air* 0 21 Intake/Output Intake and Output 06/28/24 07:00 Intake Total 440 ml Output Total 1000 ml Balance -560 ml Intake Oral 440 ml Output Urine Total 1000 ml # Voids 1 # Bowel Movements 1 General Appearance: Alert, Oriented X3, Cooperative, moderate distress HEENT: Atraumatic, PERRLA Lungs: Other Cardiovascular: Regular rate, Normal S1, Normal S2, No murmurs Abdomen: Normal bowel sounds, Soft, No tenderness, No hepatospenomegaly Genitourinary: No Apparent Abnormalities Extremities: No edema Neuro: Normal speech, Sensation intact Skin: Dry, Intact Psych/Mental Status: Mental status NL, Mood NL Medications Current Medications Medications Dose Ordered Sig/Sean Route Start Time Stop Time Status Last Admin Dose Admin Guaifenesin/ Dextromethorphan 10 ml Q4HP PRN PO 06/08/24 11:00 06/26/24 09:32 10 ML Morphine Sulfate 1 mg Q4HPRN PRN IV 06/16/24 14:00 06/26/24 09:34 1 MG Docusate Sodium 100 mg BID PRN PO 06/16/24 14:00 06/26/24 09:32 100 MG Ondansetron HCl 4 mg Q4HP PRN IV 06/21/24 16:00 06/24/24 23:25 4 MG Metoclopramide HCl 10 mg Q8HPRN PRN IV 06/21/24 16:00 06/23/24 21:15 10 MG Diphenhydramine HCl 25 mg Q6HP PRN PO 06/21/24 17:00 Morphine Sulfate 2 mg Q30MP PRN IV 06/23/24 21:15 Furosemide 20 mg BIDD IV 06/25/24 10:45 06/27/24 17:31 20 MG Lactulose 30 ml BID PO 06/25/24 22:00 06/27/24 09:57 30 ML Sodium Bicarbonate 650 mg QID PO 06/25/24 18:00 06/28/24 11:02 650 MG Meperidine HCl 12.5 mg Q4HP PRN IV 06/26/24 14:30 06/27/24 10:17 12.5 MG Nystatin 5 ml QID MT 06/27/24 12:00 06/28/24 11:02 5 ML Carbamide Peroxide 5 drop Q12HR EACH EAR 06/27/24 10:00 06/28/24 11:20 5 DROP Pantoprazole Sodium 40 mg DAILY@0600 PO 06/29/24 06:00 Ursodiol 300 mg BID PO 06/28/24 22:00 UNV Laboratory Results Laboratory Tests 06/28/24 06:00 Chemistry Test 06/28/24 06:00 Albumin 4.1 g/dL (3.2-4.8) Calcium Level 9.0 mg/dL (8.7-10.4) Total Protein 8.3 g/dL (5.7-8.2) H LFT Test 06/28/24 06:00 Alanine Aminotransferase (ALT) 848 U/L (7-40) H Alkaline Phosphatase 700 U/L (46-116) H Aspartate Amino Transferase (AST) 519 U/L (13-40) H Total Bilirubin 11.6 mg/dL (0.2-1.0) H Urinalysis Test 06/12/24 20:52 06/19/24 10:30 06/23/24 09:13 06/26/24 16:32 Urine Mucus Few (None Seen) Urine Sodium 76 mmol/L (40-220) Urine Color Yellow (Yellow) Urine Clarity Clear (Clear) Urine pH 6.5 (5.0-9.0) Urine Specific [place] 1.013 (1.001-1.035) Urine Protein Trace (Negative) H Urine Ketones Negative (Negative) Urine Blood Trace /uL (Negative) H Urine Nitrite Negative (Negative) Urine Bilirubin 1+ (Negative) Urine Urobilinogen 6 mg/dL (Negative) Urine Leukocyte Esterase Negative /uL (Negative) Urine RBC <1 /hpf (0 - 3) Urine WBC 1 /hpf (0 - 3) Urine Squamous Epithelial Cells None seen /hpf (<5) Urine Bacteria None seen /hpf (None Seen) Urine Glucose Normal mg/dL (Normal) Urine Osmolality 752 mOsm/kg Blood Gas Results Test 06/27/24 21:50 Arterial Blood pH 7.535 (7.350-7.450) FiO2 % 21.0 Microbiology Microbiology Date/Time Source Procedure Growth Status 06/25/24 16:06 Sputum Expectorated Sputum AFB Broth Culture Pending Resulted 06/25/24 16:06 Sputum Expectorated Sputum - Final Resulted 06/25/24 16:06 Sputum Expectorated Sputum - Final Resulted 06/25/24 16:06 Sputum Expectorated Sputum Acid Fast Bacilli Culture Pending Resulted 06/21/24 18:18 Blood Blood Culture - Final NO GROWTH AFTER 5 DAYS OF INCUBATION. Complete 06/21/24 14:30 Nose MRSA Screen - Final Complete Labs and/or images reviewed: Labs reviewed by me, Image(s) reviewed by me Assessment/Plan Assessment/Plan Impression: -acute hypoxic respiratory failure -multifocal pneumonia, probable P TENNILLE -rule out tuberculosis -scoliosis -HIV/AIDS : New diagnosis -hyponatremia -SIADH -rhabdomyolysis from rigors and tremors -? Oral Jennie Plan: Events: Patient had periods of sinus tachycardia yesterday evening. Probably attributed to IV diuresis as well as albuterol 2.5 mg q.4 hours. -stop breathing treatments -antiemetics -nephrology consultation -free water restriction, continue sodium tablets -pain management: Straughn -O2 supplementation to keep saturation greater 92% -pulmonary consultation -monitor for results bronchial alveolar wash -repeat labs in a.m. Total time spent with patient discussing and formulating plan of care: 35 minutes. This medical document was created using an electronic medical record system with [employer] dictation system. Although this document has been carefully reviewed, there may still be some phonetic and typographical errors. These areas are purely typographical due to imperfections of the software programs, and do not reflect any compromise in the patient's medical care. Plan discussed with: Patient, Other (RN) My Orders Orders - MATTHEW MAURER NP Procedure Category Date Status Time Pantoprazole Tablet PHA 06/29/24 In Process (Protonix Tablet) 06:00 Date of Service: Jun 28, 2024 Billing Provider: MATTHEW MAURER NP Common Visit Codes: [id number] INP/OBS CARE(HIGH) MATTHEW MAURER NP Jun 28, 2024 13:07
--- NOTE | 2024-06-28 14:40 | DVHPN2 ---
Progress Note Date Seen: Jun 28, 2024 Has the PT tested + for MRSA If YES, has PT been informed?: Yes Medical Necessity Reason Pt with a Central, PICC or Fol: No Subjective Patient reports: No new complaints Other Systems: Patient seen and examined by myself today in follow-up Objective vital signs Vital Sign Date Time Temp Pulse Resp B/P (MAP) Pulse Ox O2 Delivery O2 Flow Rate FiO2 06/28/24 13:00 97.0 111 18 113/57 (75) 93 97.0 06/28/24 08:00 Room Air* 0 21 Total Intake and Output 06/27/24 06/27/24 06/28/24 15:00 23:00 07:00 Intake Total 230 ml 210 ml Output Total 500 ml 200 ml 300 ml Balance -500 ml 30 ml -90 ml medications Current Medications Medications Dose Ordered Sig/Sean Route Start Time Stop Time Status Last Admin Dose Admin Guaifenesin/ Dextromethorphan 10 ml Q4HP PRN PO 06/08/24 11:00 06/26/24 09:32 10 ML Morphine Sulfate 1 mg Q4HPRN PRN IV 06/16/24 14:00 06/26/24 09:34 1 MG Docusate Sodium 100 mg BID PRN PO 06/16/24 14:00 06/26/24 09:32 100 MG Ondansetron HCl 4 mg Q4HP PRN IV 06/21/24 16:00 06/24/24 23:25 4 MG Metoclopramide HCl 10 mg Q8HPRN PRN IV 06/21/24 16:00 06/23/24 21:15 10 MG Diphenhydramine HCl 25 mg Q6HP PRN PO 06/21/24 17:00 Morphine Sulfate 2 mg Q30MP PRN IV 06/23/24 21:15 Furosemide 20 mg BIDD IV 06/25/24 10:45 06/27/24 17:31 20 MG Lactulose 30 ml BID PO 06/25/24 22:00 06/27/24 09:57 30 ML Sodium Bicarbonate 650 mg QID PO 06/25/24 18:00 06/28/24 11:02 650 MG Meperidine HCl 12.5 mg Q4HP PRN IV 06/26/24 14:30 06/27/24 10:17 12.5 MG Nystatin 5 ml QID MT 06/27/24 12:00 06/28/24 11:02 5 ML Carbamide Peroxide 5 drop Q12HR EACH EAR 06/27/24 10:00 06/28/24 11:20 5 DROP Pantoprazole Sodium 40 mg DAILY@0600 PO 06/29/24 06:00 Ursodiol 300 mg BID PO 06/28/24 22:00 UNV Examination: LUNGS:Normal, CVS:Normal, MSK:Normal laboratory and microbiology Laboratory Tests 06/28/24 06:00 Test 06/28/24 06:00 Range/Units Serum Glucose 111 H 74-106 mg/dL Microbiology Date/Time Source Procedure Growth Status 06/25/24 16:06 Sputum Expectorated Sputum AFB Broth Culture Pending Resulted 06/25/24 16:06 Sputum Expectorated Sputum - Final Resulted 06/25/24 16:06 Sputum Expectorated Sputum - Final Resulted 06/25/24 16:06 Sputum Expectorated Sputum Acid Fast Bacilli Culture Pending Resulted 06/21/24 18:18 Blood Blood Culture - Final NO GROWTH AFTER 5 DAYS OF INCUBATION. Complete 06/21/24 14:30 Nose MRSA Screen - Final Complete Problem List/Assessment/Plan Problem List/Assessment/Plan hyponatremia likely secondary to SIADH aggravated by IV hypotonic solution Syndrome of inappropriate antidiuretic hormone secretion hyperkalemia , resolved Metabolic acidosis AIDS Jaundice Transaminitis PCP on bactrim IV now switched to p.o. PNA leukopenia r/o TB Recommendations Serum sodium appropriately on slowly improving Avoid rapid correction of Na Furosemide 20 mg IV b.i.d. Fluid restriction Sodium bicarb 650 mg p.o. q.i.d. ID consult will continue to follow Plan discussed with: Patient Dietary Evaluation Review Comments: Encourage and monitor PO intake to meet 75% of his needs Expected Outcomes/Goals: free from symptoms, gradual weight gain. YONATHAN YAÑEZ MD Jun 28, 2024 14:40
--- NOTE | 2024-06-28 20:52 | DVHPN2 ---
Progress Note - Dictate Date Seen: Jun 28, 2024 Has the PT tested + for MRSA If YES, has PT been informed?: Yes Medical Necessity Reason Pt with a Central, PICC or Fol: No Subjective LFTs slightly improving. Patient had a brief episode of tachycardia. vital signs Vital Sign Date Time Temp Pulse Resp B/P (MAP) Pulse Ox O2 Delivery O2 Flow Rate FiO2 06/28/24 20:00 105 16 98 Room Air* 0 21 06/28/24 16:55 97.5 107/65 (79) 97.5 Total Intake and Output 06/27/24 06/27/24 06/28/24 15:00 23:00 07:00 Intake Total 230 ml 210 ml Output Total 500 ml 200 ml 300 ml Balance -500 ml 30 ml -90 ml medications Current Medications Medications Dose Ordered Sig/Sean Route Start Time Stop Time Status Last Admin Dose Admin Guaifenesin/ Dextromethorphan 10 ml Q4HP PRN PO 06/08/24 11:00 06/26/24 09:32 10 ML Morphine Sulfate 1 mg Q4HPRN PRN IV 06/16/24 14:00 06/26/24 09:34 1 MG Docusate Sodium 100 mg BID PRN PO 06/16/24 14:00 06/26/24 09:32 100 MG Ondansetron HCl 4 mg Q4HP PRN IV 06/21/24 16:00 06/24/24 23:25 4 MG Metoclopramide HCl 10 mg Q8HPRN PRN IV 06/21/24 16:00 06/23/24 21:15 10 MG Diphenhydramine HCl 25 mg Q6HP PRN PO 06/21/24 17:00 Morphine Sulfate 2 mg Q30MP PRN IV 06/23/24 21:15 Furosemide 20 mg BIDD IV 06/25/24 10:45 06/27/24 17:31 20 MG Lactulose 30 ml BID PO 06/25/24 22:00 06/27/24 09:57 30 ML Sodium Bicarbonate 650 mg QID PO 06/25/24 18:00 06/28/24 18:32 650 MG Meperidine HCl 12.5 mg Q4HP PRN IV 06/26/24 14:30 06/27/24 10:17 12.5 MG Nystatin 5 ml QID MT 06/27/24 12:00 06/28/24 18:32 5 ML Carbamide Peroxide 5 drop Q12HR EACH EAR 06/27/24 10:00 06/28/24 11:20 5 DROP Pantoprazole Sodium 40 mg DAILY@0600 PO 06/29/24 06:00 Ursodiol 300 mg BID PO 06/28/24 22:00 objective General Appearance: Alert, Oriented X3, Cooperative, No acute distress HEENT: Atraumatic Respiratory: Other (Scattered crackles; good air entry bilateral) Cardiovascular: Regular rate, Normal S1, Normal S2 Abdominal: Normal bowel sounds, Soft, No tenderness Neuro: Normal gait, Normal speech, Strength at 5/5 X4 ext, Normal tone, Sensation intact, Cranial nerves 3-12 NL, Reflexes 2+ Psych/Mental Status: Mental status NL, Mood NL laboratory and microbiology Laboratory Tests 06/28/24 06:00 Test 06/28/24 06:00 Range/Units Serum Glucose 111 H 74-106 mg/dL Assessment/Plan Patient is a 28-year-old male with elevated liver enzymes elevated bilirubin # hyponatremia SIADH AIDS Pneumocystis Jerovoci or Carini Pneumonia ( opportunistic infection) multifocal pneumonia: atypical in nature Possible PCP pneumonia pulmonary nodule Homosexual elevated LFT anemia Immunosuppressed Recommendations: LFTS improving send g6pd test for alternative rx option for PcP Pnuemonia Dc Bactrim ? drug induced but too high recommend GI consult monitor LFTS MRCP unremarkable for biliary dilation stop date of bactrim was 07/04/2024,and plan was to switch to prophylaxis dose severe hyponatremia, nephrology on board Patient is on Sodium tablets 06/25, Sputum culture pending AFB stain is negative x1 neg follow Quantiferon gold, indeterminate AFB screen x 3 pending; infection control HIV-1 RNA [PCR]: [id number]: needs ART therapy will start as outpt BAL sample to be sent for bacterial, fungal, AFB and viral cultures. follow 06/17/2024 : Chest x-ray showed Bilateral opacities which may reflect multifocal pneumonia. Prognosis guarded Thank you for consult Dietary Evaluation Review Comments: Encourage and monitor PO intake to meet 75% of his needs Expected Outcomes/Goals: free from symptoms, gradual weight gain. Plan discussed with: Other HOMERO VIGIL MD Jun 28, 2024 20:52
[2024-06-28] MEDS: URSODIOL 300 MG CAP PO SCH (21:48)
--- NOTE | 2024-06-28 22:05 | DVHPN2 ---
Progress Note - Dictate Date Seen: Jun 28, 2024 Has the PT tested + for MRSA If YES, has PT been informed?: Yes Medical Necessity Reason Pt with a Central, PICC or Fol: No Subjective Patient seen and examined at bedside. On room air Overnight events reviewed. vital signs Vital Sign Date Time Temp Pulse Resp B/P (MAP) Pulse Ox O2 Delivery O2 Flow Rate FiO2 06/28/24 21:00 97.2 107 16 104/63 (77) 98 97.2 06/28/24 20:00 Room Air* 0 21 Total Intake and Output 06/27/24 06/27/24 06/28/24 15:00 23:00 07:00 Intake Total 230 ml 210 ml Output Total 500 ml 200 ml 300 ml Balance -500 ml 30 ml -90 ml medications Current Medications Medications Dose Ordered Sig/Sean Route Start Time Stop Time Status Last Admin Dose Admin Guaifenesin/ Dextromethorphan 10 ml Q4HP PRN PO 06/08/24 11:00 06/26/24 09:32 10 ML Morphine Sulfate 1 mg Q4HPRN PRN IV 06/16/24 14:00 06/26/24 09:34 1 MG Docusate Sodium 100 mg BID PRN PO 06/16/24 14:00 06/26/24 09:32 100 MG Ondansetron HCl 4 mg Q4HP PRN IV 06/21/24 16:00 06/24/24 23:25 4 MG Metoclopramide HCl 10 mg Q8HPRN PRN IV 06/21/24 16:00 06/23/24 21:15 10 MG Diphenhydramine HCl 25 mg Q6HP PRN PO 06/21/24 17:00 Morphine Sulfate 2 mg Q30MP PRN IV 06/23/24 21:15 Furosemide 20 mg BIDD IV 06/25/24 10:45 06/27/24 17:31 20 MG Lactulose 30 ml BID PO 06/25/24 22:00 06/27/24 09:57 30 ML Sodium Bicarbonate 650 mg QID PO 06/25/24 18:00 06/28/24 18:32 650 MG Meperidine HCl 12.5 mg Q4HP PRN IV 06/26/24 14:30 06/27/24 10:17 12.5 MG Nystatin 5 ml QID MT 06/27/24 12:00 06/28/24 18:32 5 ML Carbamide Peroxide 5 drop Q12HR EACH EAR 06/27/24 10:00 06/28/24 11:20 5 DROP Pantoprazole Sodium 40 mg DAILY@0600 PO 06/29/24 06:00 Ursodiol 300 mg BID PO 06/28/24 22:00 objective Gen.: Patient lying in bed in no apparent distress. On room air Head: Normocephalic, atraumatic. Eyes: EOMI/PERRLA. Ears: Normal hearing. Normal anatomy. Neck/trachea: Trachea midline, supple. Nose: Normal external anatomy. Mouth: Moist mucous membranes. Chest: Decreased air entry bilaterally. No wheezing or rhonchi. Cardiovascular: Positive S1, positive S2. Regular rate and rhythm. Abdomen: Positive bowel sounds in all 4 quadrants. Soft, non-tender, non- distended. : Deferred. Rectal: Deferred. Skin: Warm, dry. Intact. Extremities: 2+ radial pulses bilaterally. No lower extremity edema. Neuro: Awake, alert, oriented x3. No gross motor or sensory deficits. Cranial nerves II through XII intact. Gait not assessed. laboratory and microbiology Laboratory Tests 06/28/24 06:00 Test 06/28/24 06:00 Range/Units Serum Glucose 111 H 74-106 mg/dL Assessment/Plan Impression: Cough HIV (recent diagnosis) Anemia Elevated LFTs Atypical pneumonia SIADH Events: Remains on room air Supplemental oxygen PRN Patient was tachycardic overnight - received Lopressor. Diarrhea. STAT ABG overnight showed alkalemia CXR reviewed, no acute opacities, pleural effusion or pneumothorax. Sputum sent for AFB smear and culture to rule out TB Quantiferon was indeterminate. Bactrim on hold. ID recommendations appreciated. Monitor WBC. Antiemetics PRN. GI recs appreciated. Incentive spirometry Lasix on hold d/t low blood pressure Monitor renal function Monitor electrolytes - supplement as necessary Hyponatremia w/ sodium 120 - continue to monitor closely Nephrology recommendations appreciated DVT prophylaxis w/ Lovenox Labs reviewed. Rest of plan as noted below Plan: On room air Supplemental oxygen PRN Titrate to keep O2 sats above 92%. 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 Monitor electrolytes. Supplement as necessary. Monitor ins and outs. DVT prophylaxis. Prognosis: Poor given patient's multiple co-morbidities. Rest of plan per hospitalist and other consultants. Thank you Dr. Cruz, for allowing me to participate in this patient's care. Further recommendations will depend on the patient's clinical course. Please do not hesitate to contact me if you have any questions or concerns. This medical document was created using an electronic medical record system with [employer] dictation system. Although these documentations are being carefully reviewed, there may still be some phonetic and typographical changes. The errors are purely typographical, due to imperfection on the software program, and do not reflect any compromise in the patient's medical care. Dietary Evaluation Review Comments: Encourage and monitor PO intake to meet 75% of his needs Expected Outcomes/Goals: free from symptoms, gradual weight gain. Plan discussed with: Patient, Other (AALIYAH Mabry) ANGELIC OTOOLE MD Jun 28, 2024 22:05
[2024-06-29] VITALS (8 sets, daily range): BP systolic 102–116; BP diastolic 56–71; PULSE 81–125; RESP 14–17; TEMP 97.4–98.1; O2SAT 97–99
[2024-06-29 06:15] LABS: Hematocrit 33.6 % (41.0-53.0); Hemoglobin 11.6 g/dL (13.5-17.5); Mean Corpuscular Hemoglobin 27.2 pg (28.0-32.0); Mean Corpuscular Hgb Conc. 34.4 g/dL (32.0-36.0); Mean Corpuscular Volume 79.1 fL (80.0-100.0); Platelet Count (auto) 92 10^3/uL (140-450); Red Blood Cells 4.26 10^6/uL (4.5-5.90); Red Cell Distribution Width 16.7 % (11.8-14.3); White Blood Cell 2.1 10^3/uL (4.4-10.8)
[2024-06-29] MEDS: PANTOPRAZOLE 40 MG TAB PO SCH (06:26)
[2024-06-29 06:37] LABS: Basophils % (manual) 0 (0.0-2.0); Blast Cells 0; Metamyelocytes % 0; Myelocytes % 0; Promyelocytes % 0; Reactive Lymphocytes 0
[2024-06-29 06:42] LABS: Albumin 3.9 g/dL (3.2-4.8); Anion Gap 8 (5-15); Calcium 9.6 mg/dL (8.7-10.4); Carbon Dioxide 25 mmol/L (20-31)
[2024-06-29 06:43] LABS: Alanine Aminotransferase 608 U/L (7-40); Alkaline Phosphatase 694 U/L (46-116); Aspartate Aminotransferase 254 U/L (13-40); Bilirubin, Total 12.2 mg/dL (0.2-1.0); Blood Urea Nitrogen 34 mg/dL (9-23); Chloride 92 mmol/L (98-107); Glucose 133 mg/dL (74-106); Sodium 125 mmol/L (136-145); Total Protein 8.1 g/dL (5.7-8.2)
[2024-06-29 06:53] LABS: BUN/Creatinine Ratio 50.7 (10.0-20.0)
[2024-06-29 07:15] LABS: Band Neutrophils % (manual) 3; Eosinophils % (manual) 1 (0-7); Lymphocytes % (manual) 20 (10.0-50.0); Monocytes % (manual) 16 (0-12)
[2024-06-29 07:16] LABS: Large Platelets FEW
[2024-06-29 07:17] LABS: Giant Platelets Few; Platelet Estimate Decreased
--- NOTE | 2024-06-29 10:33 | DVHPN2 ---
Progress Note - Dictate Date Seen: Jun 29, 2024 Has the PT tested + for MRSA If YES, has PT been informed?: Yes Medical Necessity Reason Pt with a Central, PICC or Fol: No Subjective Patient had 4 episodes of watery diarrhea possible related to lactulose. After holding lactulose patient's bowel movement stopped. LFTs slightly improving. vital signs Vital Sign Date Time Temp Pulse Resp B/P (MAP) Pulse Ox O2 Delivery O2 Flow Rate FiO2 06/29/24 09:21 97.9 120 14 108/71 (83) 99 97.9 06/28/24 20:00 Room Air* 0 21 Total Intake and Output 06/28/24 06/28/24 06/29/24 15:00 23:00 07:00 Intake Total 520 ml 240 ml Output Total 450 ml Balance 70 ml 240 ml medications Current Medications Medications Dose Ordered Sig/Sean Route Start Time Stop Time Status Last Admin Dose Admin Guaifenesin/ Dextromethorphan 10 ml Q4HP PRN PO 06/08/24 11:00 06/26/24 09:32 10 ML Morphine Sulfate 1 mg Q4HPRN PRN IV 06/16/24 14:00 06/26/24 09:34 1 MG Docusate Sodium 100 mg BID PRN PO 06/16/24 14:00 06/26/24 09:32 100 MG Ondansetron HCl 4 mg Q4HP PRN IV 06/21/24 16:00 06/24/24 23:25 4 MG Metoclopramide HCl 10 mg Q8HPRN PRN IV 06/21/24 16:00 06/23/24 21:15 10 MG Diphenhydramine HCl 25 mg Q6HP PRN PO 06/21/24 17:00 Morphine Sulfate 2 mg Q30MP PRN IV 06/23/24 21:15 Furosemide 20 mg BIDD IV 06/25/24 10:45 06/27/24 17:31 20 MG Lactulose 30 ml BID PO 06/25/24 22:00 06/27/24 09:57 30 ML Sodium Bicarbonate 650 mg QID PO 06/25/24 18:00 06/29/24 06:26 650 MG Meperidine HCl 12.5 mg Q4HP PRN IV 06/26/24 14:30 06/27/24 10:17 12.5 MG Nystatin 5 ml QID VA 06/27/24 12:00 06/29/24 06:26 5 ML Carbamide Peroxide 5 drop Q12HR EACH EAR 06/27/24 10:00 06/28/24 11:20 5 DROP Pantoprazole Sodium 40 mg DAILY@0600 PO 06/29/24 06:00 06/29/24 06:26 40 MG Ursodiol 300 mg BID PO 06/28/24 22:00 06/28/24 21:48 300 MG objective General Appearance: Alert, Oriented X3, Cooperative, No acute distress HEENT: Atraumatic Respiratory: Other (Scattered crackles; good air entry bilateral) Cardiovascular: Regular rate, Normal S1, Normal S2 Abdominal: Normal bowel sounds, Soft, No tenderness Neuro: Normal gait, Normal speech, Strength at 5/5 X4 ext, Normal tone, Sensation intact, Cranial nerves 3-12 NL, Reflexes 2+ Psych/Mental Status: Mental status NL, Mood NL laboratory and microbiology Laboratory Tests 06/29/24 05:55 Test 06/29/24 05:55 Range/Units Serum Glucose 133 H 74-106 mg/dL Assessment/Plan Patient is a 28-year-old male with elevated liver enzymes elevated bilirubin # hyponatremia SIADH AIDS Pneumocystis Jerovoci or Carini Pneumonia ( opportunistic infection) multifocal pneumonia: atypical in nature Possible PCP pneumonia pulmonary nodule Homosexual elevated LFT anemia Immunosuppressed Recommendations: LFTS improving send g6pd test for alternative rx option for PCP Pneumonia Dc Bactrim ? drug induced but too high GI on board monitor LFTS MRCP unremarkable for biliary dilation stop date of bactrim was 07/04/2024,and plan was to switch to prophylaxis dose severe hyponatremia, nephrology on board Patient is on Sodium Tablets 06/25, Sputum culture [AFB] pending 06/28, Sputum AFB pending AFB stain is negative x1 neg follow Quantiferon gold, indeterminate AFB screen x 3 pending; infection control HIV-1 RNA [PCR]: [id number]: needs ART therapy will start as outpt BAL sample to be sent for bacterial, fungal, AFB and viral cultures. follow 06/17/2024 : Chest x-ray showed Bilateral opacities which may reflect multifocal pneumonia. Prognosis guarded Thank you for consult Dietary Evaluation Review Comments: Encourage and monitor PO intake to meet 75% of his needs Expected Outcomes/Goals: free from symptoms, gradual weight gain. Plan discussed with: HOMERO Gray MD Jun 29, 2024 10:33
--- NOTE | 2024-06-29 12:08 | DVHPN2 ---
Progress Note Date Seen: Jun 29, 2024 Has the PT tested + for MRSA If YES, has PT been informed?: Yes Medical Necessity Reason Pt with a Central, PICC or Fol: No Subjective Patient reports: No new complaints Other Systems: Patient seen and examined by myself today in follow-up Objective vital signs Vital Sign Date Time Temp Pulse Resp B/P (MAP) Pulse Ox O2 Delivery O2 Flow Rate FiO2 06/29/24 09:21 97.9 120 14 108/71 (83) 99 97.9 06/28/24 20:00 Room Air* 0 21 Total Intake and Output 06/28/24 06/28/24 06/29/24 15:00 23:00 07:00 Intake Total 520 ml 240 ml Output Total 450 ml Balance 70 ml 240 ml medications Current Medications Medications Dose Ordered Sig/Sean Route Start Time Stop Time Status Last Admin Dose Admin Guaifenesin/ Dextromethorphan 10 ml Q4HP PRN PO 06/08/24 11:00 06/26/24 09:32 10 ML Morphine Sulfate 1 mg Q4HPRN PRN IV 06/16/24 14:00 06/26/24 09:34 1 MG Docusate Sodium 100 mg BID PRN PO 06/16/24 14:00 06/26/24 09:32 100 MG Ondansetron HCl 4 mg Q4HP PRN IV 06/21/24 16:00 06/24/24 23:25 4 MG Metoclopramide HCl 10 mg Q8HPRN PRN IV 06/21/24 16:00 06/23/24 21:15 10 MG Diphenhydramine HCl 25 mg Q6HP PRN PO 06/21/24 17:00 Morphine Sulfate 2 mg Q30MP PRN IV 06/23/24 21:15 Furosemide 20 mg BIDD IV 06/25/24 10:45 06/27/24 17:31 20 MG Sodium Bicarbonate 650 mg QID PO 06/25/24 18:00 06/29/24 06:26 650 MG Meperidine HCl 12.5 mg Q4HP PRN IV 06/26/24 14:30 06/27/24 10:17 12.5 MG Nystatin 5 ml QID MT 06/27/24 12:00 06/29/24 10:31 5 ML Carbamide Peroxide 5 drop Q12HR EACH EAR 06/27/24 10:00 06/28/24 11:20 5 DROP Pantoprazole Sodium 40 mg DAILY@0600 PO 06/29/24 06:00 06/29/24 06:26 40 MG Ursodiol 300 mg BID PO 06/28/24 22:00 06/29/24 10:32 300 MG Metoprolol Tartrate 12.5 mg BID PO 06/29/24 11:45 Examination: LUNGS:Normal, CVS:Normal, MSK:Normal laboratory and microbiology Laboratory Tests 06/29/24 05:55 Test 06/29/24 05:55 Range/Units Serum Glucose 133 H 74-106 mg/dL Microbiology Date/Time Source Procedure Growth Status 06/25/24 16:06 Sputum Expectorated Sputum AFB Broth Culture Pending Resulted 06/25/24 16:06 Sputum Expectorated Sputum - Final Resulted 06/25/24 16:06 Sputum Expectorated Sputum - Final Resulted 06/25/24 16:06 Sputum Expectorated Sputum Acid Fast Bacilli Culture Pending Resulted 06/21/24 18:18 Blood Blood Culture - Final NO GROWTH AFTER 5 DAYS OF INCUBATION. Complete 06/21/24 14:30 Nose MRSA Screen - Final Complete Problem List/Assessment/Plan Problem List/Assessment/Plan hyponatremia likely secondary to SIADH aggravated by IV hypotonic solution Syndrome of inappropriate antidiuretic hormone secretion hyperkalemia , resolved Metabolic acidosis AIDS Jaundice Transaminitis PCP on bactrim IV now switched to p.o. PNA leukopenia r/o TB Recommendations Serum sodium appropriately on slowly improving Avoid rapid correction of Na Furosemide 20 mg IV b.i.d. Fluid restriction Sodium bicarb 650 mg p.o. q.i.d. KCL replacement ID consult will continue to follow Plan discussed with: Patient Dietary Evaluation Review Comments: Encourage and monitor PO intake to meet 75% of his needs Expected Outcomes/Goals: free from symptoms, gradual weight gain. YONATHAN YAÑEZ MD Jun 29, 2024 12:08
--- NOTE | 2024-06-29 13:16 | DVHPN2 ---
Subjective Patient denies any new symptoms. Continues to report having generalized weakness. Reviewed: Care Plan, H&P, Labs, Medications, Previous Orders, Radiology, Other (Consultations) Changes from previous H/P or p: No Changes General: No Night Sweats, No Fatigue Neurological: No Weakness, No Numbness Cardiovascular: No Chest Pain Respiratory: Cough, Shortness of breath Gastrointestinal: No Nausea Musculoskeletal: No leg pain Endocrine: No Cold Intolerance Hematology: No Abnormal Bleeding Objective Vitals Vital Signs Date Time Temp Pulse Resp B/P (MAP) Pulse Ox O2 Delivery O2 Flow Rate FiO2 06/29/24 09:21 97.9 120 14 108/71 (83) 99 97.9 06/28/24 20:00 Room Air* 0 21 Intake/Output Intake and Output 06/29/24 07:00 Intake Total 760 ml Output Total 450 ml Balance 310 ml Intake Oral 760 ml Output Urine Total 450 ml # Voids 1 # Bowel Movements 1 General Appearance: Alert, Oriented X3, Cooperative, moderate distress HEENT: Atraumatic, PERRLA Lungs: Other Cardiovascular: Regular rate, Normal S1, Normal S2, No murmurs Abdomen: Normal bowel sounds, Soft, No tenderness, No hepatospenomegaly Genitourinary: No Apparent Abnormalities Extremities: No edema Neuro: Normal speech, Sensation intact Skin: Dry, Intact Psych/Mental Status: Mental status NL, Mood NL Medications Current Medications Medications Dose Ordered Sig/Sean Route Start Time Stop Time Status Last Admin Dose Admin Guaifenesin/ Dextromethorphan 10 ml Q4HP PRN PO 06/08/24 11:00 06/26/24 09:32 10 ML Morphine Sulfate 1 mg Q4HPRN PRN IV 06/16/24 14:00 06/26/24 09:34 1 MG Docusate Sodium 100 mg BID PRN PO 06/16/24 14:00 06/26/24 09:32 100 MG Ondansetron HCl 4 mg Q4HP PRN IV 06/21/24 16:00 06/24/24 23:25 4 MG Metoclopramide HCl 10 mg Q8HPRN PRN IV 06/21/24 16:00 06/23/24 21:15 10 MG Diphenhydramine HCl 25 mg Q6HP PRN PO 06/21/24 17:00 Morphine Sulfate 2 mg Q30MP PRN IV 06/23/24 21:15 Furosemide 20 mg BIDD IV 06/25/24 10:45 06/27/24 17:31 20 MG Sodium Bicarbonate 650 mg QID PO 06/25/24 18:00 06/29/24 06:26 650 MG Meperidine HCl 12.5 mg Q4HP PRN IV 06/26/24 14:30 06/27/24 10:17 12.5 MG Nystatin 5 ml QID MT 06/27/24 12:00 06/29/24 10:31 5 ML Carbamide Peroxide 5 drop Q12HR EACH EAR 06/27/24 10:00 06/28/24 11:20 5 DROP Pantoprazole Sodium 40 mg DAILY@0600 PO 06/29/24 06:00 06/29/24 06:26 40 MG Ursodiol 300 mg BID PO 06/28/24 22:00 06/29/24 10:32 300 MG Metoprolol Tartrate 12.5 mg BID PO 06/29/24 11:45 Laboratory Results Laboratory Tests 06/29/24 05:55 Chemistry Test 06/29/24 05:55 Albumin 3.9 g/dL (3.2-4.8) Calcium Level 9.6 mg/dL (8.7-10.4) Total Protein 8.1 g/dL (5.7-8.2) LFT Test 06/29/24 05:55 Alanine Aminotransferase (ALT) 608 U/L (7-40) H Alkaline Phosphatase 694 U/L (46-116) H Aspartate Amino Transferase (AST) 254 U/L (13-40) H Total Bilirubin 12.2 mg/dL (0.2-1.0) H Urinalysis Test 06/12/24 20:52 06/19/24 10:30 06/23/24 09:13 06/26/24 16:32 Urine Mucus Few (None Seen) Urine Sodium 76 mmol/L (40-220) Urine Color Yellow (Yellow) Urine Clarity Clear (Clear) Urine pH 6.5 (5.0-9.0) Urine Specific [place] 1.013 (1.001-1.035) Urine Protein Trace (Negative) H Urine Ketones Negative (Negative) Urine Blood Trace /uL (Negative) H Urine Nitrite Negative (Negative) Urine Bilirubin 1+ (Negative) Urine Urobilinogen 6 mg/dL (Negative) Urine Leukocyte Esterase Negative /uL (Negative) Urine RBC <1 /hpf (0 - 3) Urine WBC 1 /hpf (0 - 3) Urine Squamous Epithelial Cells None seen /hpf (<5) Urine Bacteria None seen /hpf (None Seen) Urine Glucose Normal mg/dL (Normal) Urine Osmolality 752 mOsm/kg Microbiology Microbiology Date/Time Source Procedure Growth Status 06/25/24 16:06 Sputum Expectorated Sputum AFB Broth Culture Pending Resulted 06/25/24 16:06 Sputum Expectorated Sputum - Final Resulted 06/25/24 16:06 Sputum Expectorated Sputum - Final Resulted 06/25/24 16:06 Sputum Expectorated Sputum Acid Fast Bacilli Culture Pending Resulted 06/21/24 18:18 Blood Blood Culture - Final NO GROWTH AFTER 5 DAYS OF INCUBATION. Complete 06/21/24 14:30 Nose MRSA Screen - Final Complete Labs and/or images reviewed: Labs reviewed by me, Image(s) reviewed by me Assessment/Plan Assessment/Plan Impression: -acute hypoxic respiratory failure -multifocal pneumonia, probable P [place] -rule out tuberculosis -scoliosis -HIV/AIDS : New diagnosis -hyponatremia -SIADH -rhabdomyolysis from rigors and tremors -? Oral [place] Plan: Events: Continues to have ST. Start low dose BB. NA, LFTs improving -antiemetics -nephrology consultation -free water restriction, continue sodium tablets -pain management: [place] -O2 supplementation to keep saturation greater 92% -pulmonary consultation -Negative TB -repeat labs in a.m. Total time spent with patient discussing and formulating plan of care: 35 minutes. This medical document was created using an electronic medical record system with [employer] dictation system. Although this document has been carefully reviewed, there may still be some phonetic and typographical errors. These areas are purely typographical due to imperfections of the software programs, and do not reflect any compromise in the patient's medical care. Plan discussed with: Patient, Other (RN) My Orders Orders - MATTHEW MAURER NP Procedure Category Date Status Time Metoprolol Tartrate PHA 06/29/24 In Process Tablet (Lopressor Ta 11:45 Basic Metabolic Panel LAB 06/30/24 Verified 04:00 Date of Service: Jun 29, 2024 Billing Provider: MATTHEW MAURER NP Common Visit Codes: [id number] INP/OBS CARE(HIGH) MATTHEW MAURER NP Jun 29, 2024 13:16
[2024-06-29] MEDS: METOPROLOL TARTRATE 25 MG TAB PO SCH (13:19)
--- NOTE | 2024-06-29 17:23 | DVHPN2 ---
Progress Note Date Seen: Jun 29, 2024 Resident Creating Document: LEONIE LIRIANO RESIDENT Has the PT tested + for MRSA If YES, has PT been informed?: Yes Medical Necessity Reason Pt with a Central, PICC or Fol: No Subjective Review of Systems Patient had 4 episodes of watery diarrhea secondary due to the age-related infection/opportunity in the infection/possibly due to lactulose. After holding lactulose patient's bowel movement stopped. Patient reports: Feels better Changes from previous H/P or p: Changes Objective vital signs Vital Sign Date Time Temp Pulse Resp B/P (MAP) Pulse Ox O2 Delivery O2 Flow Rate FiO2 06/29/24 17:00 97.8 105 17 108/62 (77) 98 97.8 06/28/24 20:00 Room Air* 0 21 Total Intake and Output 06/28/24 06/28/24 06/29/24 15:00 23:00 07:00 Intake Total 520 ml 240 ml Output Total 450 ml Balance 70 ml 240 ml medications Current Medications Medications Dose Ordered Sig/Sean Route Start Time Stop Time Status Last Admin Dose Admin Guaifenesin/ Dextromethorphan 10 ml Q4HP PRN PO 06/08/24 11:00 06/26/24 09:32 10 ML Morphine Sulfate 1 mg Q4HPRN PRN IV 06/16/24 14:00 06/26/24 09:34 1 MG Docusate Sodium 100 mg BID PRN PO 06/16/24 14:00 06/26/24 09:32 100 MG Ondansetron HCl 4 mg Q4HP PRN IV 06/21/24 16:00 06/24/24 23:25 4 MG Metoclopramide HCl 10 mg Q8HPRN PRN IV 06/21/24 16:00 06/23/24 21:15 10 MG Diphenhydramine HCl 25 mg Q6HP PRN PO 06/21/24 17:00 Furosemide 20 mg BIDD IV 06/25/24 10:45 06/27/24 17:31 20 MG Sodium Bicarbonate 650 mg QID PO 06/25/24 18:00 06/29/24 13:19 650 MG Nystatin 5 ml QID MT 06/27/24 12:00 06/29/24 10:31 5 ML Carbamide Peroxide 5 drop Q12HR EACH EAR 06/27/24 10:00 06/28/24 11:20 5 DROP Pantoprazole Sodium 40 mg DAILY@0600 PO 06/29/24 06:00 06/29/24 06:26 40 MG Ursodiol 300 mg BID PO 06/28/24 22:00 06/29/24 10:32 300 MG Metoprolol Tartrate 12.5 mg BID PO 06/29/24 11:45 06/29/24 13:19 12.5 MG Morphine Sulfate 2 mg Q4HPRN PRN IV 06/29/24 16:45 Hydrocortisone 1 applic BID TOP 06/29/24 22:00 Examination GENERAL APPEARANCE: Poorly nourished, alert and cooperative, and appears to be in no acute distress. sick looking, no encephalopathy. HEAD: normocephalic. EYES: PERRL, EOMI. Fundi normal, vision is grossly intact. Icterus bilateral EARS: External auditory canals and tympanic membranes clear, hearing grossly intact. NOSE: No nasal discharge. THROAT: Oral cavity and pharynx normal. No inflammation, swelling, exudate, or lesions. Teeth and gingiva in good general condition. NECK: Neck supple, non-tender without lymphadenopathy, masses or thyromegaly. CARDIAC: Normal S1 and S2. No S3, S4 or murmurs. Rhythm is regular. There is no peripheral edema, cyanosis or pallor. Extremities are warm and well perfused. Capillary refill is less than 2 seconds. No carotid bruits. LUNGS: Clear to auscultation and percussion without rales, rhonchi, wheezing or diminished breath sounds. ABDOMEN: Positive bowel sounds. Soft, nondistended, nontender. No guarding or rebound. No masses. Bowel sounds present. MUSKULOSKELETAL: Adequately aligned spine. ROM intact spine and extremities. No joint erythema or tenderness. Normal muscular development. Normal gait. SKIN: Skin yellow color, texture and turgor with no lesions or eruptions. PSYCHIATRIC: The mental examination revealed the patient was oriented to person, place, and time. The patient was able to demonstrate good judgement and reason, without hallucinations, abnormal affect or abnormal behaviors during the examination. Patient is not suicidal. laboratory and microbiology Laboratory Tests 06/29/24 05:55 Test 06/29/24 05:55 Range/Units Serum Glucose 133 H 74-106 mg/dL Microbiology Date/Time Source Procedure Growth Status 06/25/24 16:06 Sputum Expectorated Sputum AFB Broth Culture Pending Resulted 06/25/24 16:06 Sputum Expectorated Sputum - Final Resulted 06/25/24 16:06 Sputum Expectorated Sputum - Final Resulted 06/25/24 16:06 Sputum Expectorated Sputum Acid Fast Bacilli Culture Pending Resulted 06/21/24 18:18 Blood Blood Culture - Final NO GROWTH AFTER 5 DAYS OF INCUBATION. Complete 06/21/24 14:30 Nose MRSA Screen - Final Complete Labs and/or images reviewed: Labs reviewed by me, Image(s) reviewed by me Problem List/Assessment/Plan Problem List/Assessment/Plan Reason for Consultation Transaminitis History of Present Illness A 28-year-old homosexual male patient; who was recently diagnosed with HIV, not on treatment; who presented with cough to [facility] and was transferred to [facility] for further evaluation and treatment. He has a history of homosexual activity presents with suspected sepsis, acute hypoxic respiratory failure, and bilateral pneumonia, possibly due to atypical infections. They have a productive cough, fever, tachycardia, and decreased oxygen saturation. The patient is on IV antibiotics, oxygen therapy, and nebulizer treatments, with close monitoring and consultations from infectious disease, nephrology and pulmonology teams. Additional concerns include normocytic anemia, elevated liver enzymes, mild hyponatremia, and an elevated D- dimer, with a chest angiogram ordered to rule out DVT. Denies any prior EGD or colonoscopy, family history negative for any GI malignancy. Having recurrent diarrhea. GI Assessment/ impression: #Likely diarrhea of AIDS with opportunistic # CD 4 < 10 high risk for opportunistic infection #total hyperbilirubinemia, icterus #possible CMV / EBV hepatitis #mild elevated ammonia #transaminitis significantly elevated, negative hepatitis panel, MRCP negative #fatty liver #gallbladder sludge MRCP negative #diarrhea 4 bowel movement on lactulose. - #hyponatremia likely secondary to IV hypotonic IVF #hyperkalemia #AIDS #PJP pneumonia on Bactrim #leukopenia #history of travel to TB endemic areas/[place] r/o T #sepsis #neutropenia/leukopenia #Acute hypoxic respiratory failure #Recently diagnosed with HIV in the setting of homosexual male #Normocytic anemia; unclear etiology #Elevated D-dimer, negative CT PE #right lower lobe 2 cm nodule in lungs. #left adrenal nodule GI Plan: # medications: Pantoprazole 40 mg po daily for GI prophylaxis. Hold Bactrim for now. Antiretroviral treatment to start as soon as possible/as per discretion of ID when LFT trends down. Hold Anticoagulation. 1 dose Vitamin K given. 300 mg po bid Ursodeccoxylic acid continue. # labs: trend CMP Ammonia, CMP and PT/INR and ammonia. check stool culture, stool wbc, c diff and ova parasite. # plan procedure: No need of in-hospital procedure, H&H stable. # diet: please avoid NSAIDs, alcohol, caffeine, spicy, highly acidic and caustic diets. # please consider starting the patient on antivirals for possible CMV/ EBV infection and restart antibiotic prophylaxis as soon as possible as per ID discretion. # please scheduled follow up with GI as outpatient with Dr. Robins. Thank you so much for the opportunity to consult on your patient. GI team will sign off. In case of any questions or concerns please feel free to reach out. Case an action plan discussed with Dr. Kiya Robins. Complex care planning needed total 43 minutes of detailed discussion. The patient and caregiver team agreed to the plan. Plan discussed with: Patient, Other (primary team, RN) My Orders My Orders Orders - LEONIE LIRIANO Procedure Category Date Status Time Stool Bacterial [place] 06/28/24 Uncollected Culture 19:09 Stool Wbc LAB 06/28/24 Logged 19:09 Ova & Parasite Exam [place] 06/28/24 Uncollected 19:09 Dietary Evaluation Review Comments: Encourage and monitor PO intake to meet 75% of his needs Expected Outcomes/Goals: free from symptoms, gradual weight gain. LEONIE LIRIANO RESIDENT Jun 29, 2024 17:23
--- NOTE | 2024-06-29 20:43 | DVHPN2 ---
Progress Note - Dictate Date Seen: Jun 29, 2024 Has the PT tested + for MRSA If YES, has PT been informed?: Yes Medical Necessity Reason Pt with a Central, PICC or Fol: No Subjective Patient seen and examined at bedside. On room air Overnight events reviewed. vital signs Vital Sign Date Time Temp Pulse Resp B/P (MAP) Pulse Ox O2 Delivery O2 Flow Rate FiO2 06/29/24 17:39 105 108/62 06/29/24 17:00 97.8 17 98 97.8 06/29/24 08:10 Room Air* 0 21 Total Intake and Output 06/28/24 06/28/24 06/29/24 14:59 22:59 06:59 Intake Total 520 ml 240 ml Output Total 300 ml 450 ml Balance -300 ml 70 ml 240 ml medications Current Medications Medications Dose Ordered Sig/Sean Route Start Time Stop Time Status Last Admin Dose Admin Guaifenesin/ Dextromethorphan 10 ml Q4HP PRN PO 06/08/24 11:00 06/26/24 09:32 10 ML Morphine Sulfate 1 mg Q4HPRN PRN IV 06/16/24 14:00 06/26/24 09:34 1 MG Docusate Sodium 100 mg BID PRN PO 06/16/24 14:00 06/26/24 09:32 100 MG Ondansetron HCl 4 mg Q4HP PRN IV 06/21/24 16:00 06/24/24 23:25 4 MG Metoclopramide HCl 10 mg Q8HPRN PRN IV 06/21/24 16:00 06/23/24 21:15 10 MG Diphenhydramine HCl 25 mg Q6HP PRN PO 06/21/24 17:00 Furosemide 20 mg BIDD IV 06/25/24 10:45 06/27/24 17:31 20 MG Sodium Bicarbonate 650 mg QID PO 06/25/24 18:00 06/29/24 17:37 650 MG Nystatin 5 ml QID MT 06/27/24 12:00 06/29/24 17:37 5 ML Carbamide Peroxide 5 drop Q12HR EACH EAR 06/27/24 10:00 06/28/24 11:20 5 DROP Pantoprazole Sodium 40 mg DAILY@0600 PO 06/29/24 06:00 06/29/24 06:26 40 MG Ursodiol 300 mg BID PO 06/28/24 22:00 06/29/24 10:32 300 MG Metoprolol Tartrate 12.5 mg BID PO 06/29/24 11:45 06/29/24 13:19 12.5 MG Morphine Sulfate 2 mg Q4HPRN PRN IV 06/29/24 16:45 Hydrocortisone 1 applic BID TOP 06/29/24 22:00 objective Gen.: Patient lying in bed in no apparent distress. On room air Head: Normocephalic, atraumatic. Eyes: EOMI/PERRLA. Ears: Normal hearing. Normal anatomy. Neck/trachea: Trachea midline, supple. Nose: Normal external anatomy. Mouth: Moist mucous membranes. Chest: Decreased air entry bilaterally. No wheezing or rhonchi. Cardiovascular: Positive S1, positive S2. Regular rate and rhythm. Abdomen: Positive bowel sounds in all 4 quadrants. Soft, non-tender, non- distended. : Deferred. Rectal: Deferred. Skin: Warm, dry. Intact. Extremities: 2+ radial pulses bilaterally. No lower extremity edema. Neuro: Awake, alert, oriented x3. No gross motor or sensory deficits. Cranial nerves II through XII intact. Gait not assessed. laboratory and microbiology Laboratory Tests 06/29/24 05:55 Test 06/29/24 05:55 Range/Units Serum Glucose 133 H 74-106 mg/dL Assessment/Plan Impression: Cough HIV (recent diagnosis) Anemia Elevated LFTs Atypical pneumonia SIADH Events: Remains on room air Supplemental oxygen PRN D/C isolation AFB smears negative x3. Continue lactulose Nystatin suspension Sodium bicarb tabs Continue ursodiol TB negative ID recommendations appreciated. Monitor WBC. Antiemetics PRN. GI recs appreciated. Check stool for bacteria, ova and parasites. Incentive spirometry Lasix held Monitor renal function Monitor electrolytes - supplement as necessary Hyponatremia w/ sodium 125 - continue to monitor closely Nephrology recommendations appreciated DVT prophylaxis w/ Lovenox Patient is stable for discharge from the pulmonary standpoint Labs reviewed. Rest of plan as noted below Plan: On room air Supplemental oxygen PRN Titrate to keep O2 sats above 92%. 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 Monitor electrolytes. Supplement as necessary. Monitor ins and outs. DVT prophylaxis. Prognosis: Poor given patient's multiple co-morbidities. Rest of plan per hospitalist and other consultants. Thank you Dr. Cruz, for allowing me to participate in this patient's care. Further recommendations will depend on the patient's clinical course. Please do not hesitate to contact me if you have any questions or concerns. This medical document was created using an electronic medical record system with [employer] dictation system. Although these documentations are being carefully reviewed, there may still be some phonetic and typographical changes. The errors are purely typographical, due to imperfection on the software program, and do not reflect any compromise in the patient's medical care. Dietary Evaluation Review Comments: Encourage and monitor PO intake to meet 75% of his needs Expected Outcomes/Goals: free from symptoms, gradual weight gain. Plan discussed with: Patient, Other (AALIYAH Gar) ANGELIC OTOOLE MD Jun 29, 2024 20:43
[2024-06-29] MEDS: HYDROCORTISONE 2.5% TOPICAL CREAM 30GM TUBE TOP SCH (21:19)
[2024-06-30] VITALS (8 sets, daily range): BP systolic 92–119; BP diastolic 56–67; PULSE 116–150; RESP 15–20; TEMP 97.2–98.5; O2SAT 98–99
[2024-06-30 06:35] LABS: Potassium 3.8 mmol/L (3.5-5.1)
[2024-06-30 06:36] LABS: Anion Gap 8 (5-15); Calcium 8.9 mg/dL (8.7-10.4); Carbon Dioxide 24 mmol/L (20-31)
[2024-06-30 06:38] LABS: Hematocrit 30.3 % (41.0-53.0); Red Blood Cells 3.84 10^6/uL (4.5-5.90); White Blood Cell 2.3 10^3/uL (4.4-10.8)
[2024-06-30 06:40] LABS: Hemoglobin 10.3 g/dL (13.5-17.5); Mean Corpuscular Hemoglobin 26.8 pg (28.0-32.0); Mean Corpuscular Volume 78.8 fL (80.0-100.0); Platelet Count (auto) 110 10^3/uL (140-450); Red Cell Distribution Width 17.1 % (11.8-14.3)
[2024-06-30 06:41] LABS: Blood Urea Nitrogen 20 mg/dL (9-23)
[2024-06-30 06:43] LABS: BUN/Creatinine Ratio 38.5 (10.0-20.0); Basophils % (manual) 0 (0.0-2.0); Blast Cells 0; Chloride 91 mmol/L (98-107); Eosinophils % (manual) 0 (0-7); Glucose 115 mg/dL (74-106); Metamyelocytes % 0; Myelocytes % 0; Promyelocytes % 0; Reactive Lymphocytes 0; Sodium 123 mmol/L (136-145)
[2024-06-30 07:14] LABS: Band Neutrophils % (manual) 9; Lymphocytes % (manual) 19 (10.0-50.0); Monocytes % (manual) 18 (0-12)
[2024-06-30 07:15] LABS: Anisocytosis Slight; Tear Drop Cells FEW
[2024-06-30 07:16] LABS: Large Platelets FEW; Platelet Estimate Decreased
--- NOTE | 2024-06-30 11:27 | DVHPN2 ---
Progress Note Date Seen: Jun 30, 2024 Has the PT tested + for MRSA If YES, has PT been informed?: Yes Medical Necessity Reason Pt with a Central, PICC or Fol: No Subjective Patient reports: No new complaints Other Systems: Patient seen and examined by myself today in follow-up Objective vital signs Vital Sign Date Time Temp Pulse Resp B/P (MAP) Pulse Ox O2 Delivery O2 Flow Rate FiO2 06/30/24 10:39 120 104/62 06/30/24 09:00 97.9 20 99 97.9 06/29/24 20:00 Room Air* 0 21 Total Intake and Output 06/29/24 06/29/24 06/30/24 15:00 23:00 07:00 Intake Total 400 ml 200 ml Output Total 925 ml 300 ml Balance -925 ml 100 ml 200 ml medications Current Medications Medications Dose Ordered Sig/Sean Route Start Time Stop Time Status Last Admin Dose Admin Guaifenesin/ Dextromethorphan 10 ml Q4HP PRN PO 06/08/24 11:00 06/26/24 09:32 10 ML Morphine Sulfate 1 mg Q4HPRN PRN IV 06/16/24 14:00 06/26/24 09:34 1 MG Docusate Sodium 100 mg BID PRN PO 06/16/24 14:00 06/26/24 09:32 100 MG Ondansetron HCl 4 mg Q4HP PRN IV 06/21/24 16:00 06/29/24 21:36 4 MG Metoclopramide HCl 10 mg Q8HPRN PRN IV 06/21/24 16:00 06/23/24 21:15 10 MG Diphenhydramine HCl 25 mg Q6HP PRN PO 06/21/24 17:00 Furosemide 20 mg BIDD IV 06/25/24 10:45 06/27/24 17:31 20 MG Sodium Bicarbonate 650 mg QID PO 06/25/24 18:00 06/30/24 06:10 650 MG Nystatin 5 ml QID MT 06/27/24 12:00 06/30/24 06:10 5 ML Carbamide Peroxide 5 drop Q12HR EACH EAR 06/27/24 10:00 06/30/24 10:41 5 DROP Pantoprazole Sodium 40 mg DAILY@0600 PO 06/29/24 06:00 06/30/24 06:10 40 MG Ursodiol 300 mg BID PO 06/28/24 22:00 06/30/24 10:40 300 MG Metoprolol Tartrate 12.5 mg BID PO 06/29/24 11:45 06/30/24 10:39 12.5 MG Morphine Sulfate 2 mg Q4HPRN PRN IV 06/29/24 16:45 Hydrocortisone 1 applic BID TOP 06/29/24 22:00 06/30/24 10:40 1 APPLIC Examination: LUNGS:Normal, CVS:Normal, ABDOMEN:Abnormal laboratory and microbiology Laboratory Tests 06/30/24 05:40 Test 06/30/24 05:40 Range/Units Serum Glucose 115 H 74-106 mg/dL Microbiology Date/Time Source Procedure Growth Status 06/25/24 16:06 Sputum Expectorated Sputum AFB Broth Culture Pending Resulted 06/25/24 16:06 Sputum Expectorated Sputum - Final Resulted 06/25/24 16:06 Sputum Expectorated Sputum - Final Resulted 06/25/24 16:06 Sputum Expectorated Sputum Acid Fast Bacilli Culture Pending Resulted 06/21/24 18:18 Blood Blood Culture - Final NO GROWTH AFTER 5 DAYS OF INCUBATION. Complete 06/21/24 14:30 Nose MRSA Screen - Final Complete Problem List/Assessment/Plan Problem List/Assessment/Plan hyponatremia likely secondary to SIADH aggravated by IV hypotonic solution Syndrome of inappropriate antidiuretic hormone secretion hyperkalemia , resolved Metabolic acidosis AIDS Jaundice Transaminitis PCP on bactrim IV now switched to p.o. PNA leukopenia r/o TB Recommendations Serum sodium appropriately on slowly improving Avoid rapid correction of Na Furosemide 20 mg IV b.i.d. Fluid restriction Add urea-sodium 15 g p.o. t.i.d. Sodium bicarb 650 mg p.o. t.i.d. KCL replacement ID consult will continue to follow Plan discussed with: Patient My Orders My Orders Orders - YONATHAN YAÑEZ MD Procedure Category Date Status Time Urea (Ure-Na) PHA 06/30/24 Verified 14:00 Dietary Evaluation Review Comments: Encourage and monitor PO intake to meet 75% of his needs Expected Outcomes/Goals: free from symptoms, gradual weight gain. YONATHAN YAÑEZ MD Jun 30, 2024 11:26
[2024-06-30] MEDS: SODIUM BICARBONATE 650 MG TAB PO SCH (11:30)
--- NOTE | 2024-06-30 13:32 | DVHPN2 ---
Reviewed: Care Plan, H&P, Labs, Medications, Previous Orders, Radiology, Other (Consultations) Changes from previous H/P or p: No Changes General: No Night Sweats, No Fatigue Neurological: No Weakness, No Numbness Cardiovascular: No Chest Pain Respiratory: Cough, Shortness of breath Gastrointestinal: No Nausea Musculoskeletal: No leg pain Endocrine: No Cold Intolerance Hematology: No Abnormal Bleeding Objective Vitals Vital Signs Date Time Temp Pulse Resp B/P (MAP) Pulse Ox O2 Delivery O2 Flow Rate FiO2 06/30/24 10:39 120 104/62 06/30/24 09:00 97.9 20 99 97.9 06/29/24 20:00 Room Air* 0 21 Intake/Output Intake and Output 06/30/24 07:00 Intake Total 600 ml Output Total 1225 ml Balance -625 ml Intake Oral 600 ml Output Urine Total 1225 ml # Voids 2 General Appearance: Alert, Oriented X3, Cooperative, moderate distress HEENT: Atraumatic, PERRLA Lungs: Other Cardiovascular: Regular rate, Normal S1, Normal S2, No murmurs Abdomen: Normal bowel sounds, Soft, No tenderness, No hepatospenomegaly Genitourinary: No Apparent Abnormalities Extremities: No edema Neuro: Normal speech, Sensation intact Skin: Dry, Intact Psych/Mental Status: Mental status NL, Mood NL Medications Current Medications Medications Dose Ordered Sig/Sean Route Start Time Stop Time Status Last Admin Dose Admin Guaifenesin/ Dextromethorphan 10 ml Q4HP PRN PO 06/08/24 11:00 06/26/24 09:32 10 ML Morphine Sulfate 1 mg Q4HPRN PRN IV 06/16/24 14:00 06/26/24 09:34 1 MG Docusate Sodium 100 mg BID PRN PO 06/16/24 14:00 06/26/24 09:32 100 MG Ondansetron HCl 4 mg Q4HP PRN IV 06/21/24 16:00 06/29/24 21:36 4 MG Metoclopramide HCl 10 mg Q8HPRN PRN IV 06/21/24 16:00 06/23/24 21:15 10 MG Diphenhydramine HCl 25 mg Q6HP PRN PO 06/21/24 17:00 Furosemide 20 mg BIDD IV 06/25/24 10:45 06/27/24 17:31 20 MG Nystatin 5 ml QID MT 06/27/24 12:00 06/30/24 06:10 5 ML Carbamide Peroxide 5 drop Q12HR EACH EAR 06/27/24 10:00 06/30/24 10:41 5 DROP Pantoprazole Sodium 40 mg DAILY@0600 PO 06/29/24 06:00 06/30/24 06:10 40 MG Ursodiol 300 mg BID PO 06/28/24 22:00 06/30/24 10:40 300 MG Metoprolol Tartrate 12.5 mg BID PO 06/29/24 11:45 06/30/24 10:39 12.5 MG Morphine Sulfate 2 mg Q4HPRN PRN IV 06/29/24 16:45 Hydrocortisone 1 applic BID TOP 06/29/24 22:00 06/30/24 10:40 1 APPLIC Urea 15 gm TID PO 06/30/24 14:00 Sodium Bicarbonate 650 mg TID PO 06/30/24 11:30 Laboratory Results Laboratory Tests 06/30/24 05:40 Chemistry Test 06/30/24 05:40 Calcium Level 8.9 mg/dL (8.7-10.4) Urinalysis Test 06/12/24 20:52 06/19/24 10:30 06/23/24 09:13 06/26/24 16:32 Urine Mucus Few (None Seen) Urine Sodium 76 mmol/L (40-220) Urine Color Yellow (Yellow) Urine Clarity Clear (Clear) Urine pH 6.5 (5.0-9.0) Urine Specific [place] 1.013 (1.001-1.035) Urine Protein Trace (Negative) H Urine Ketones Negative (Negative) Urine Blood Trace /uL (Negative) H Urine Nitrite Negative (Negative) Urine Bilirubin 1+ (Negative) Urine Urobilinogen 6 mg/dL (Negative) Urine Leukocyte Esterase Negative /uL (Negative) Urine RBC <1 /hpf (0 - 3) Urine WBC 1 /hpf (0 - 3) Urine Squamous Epithelial Cells None seen /hpf (<5) Urine Bacteria None seen /hpf (None Seen) Urine Glucose Normal mg/dL (Normal) Urine Osmolality 752 mOsm/kg Microbiology Microbiology Date/Time Source Procedure Growth Status 06/25/24 16:06 Sputum Expectorated Sputum AFB Broth Culture Pending Resulted 06/25/24 16:06 Sputum Expectorated Sputum - Final Resulted 06/25/24 16:06 Sputum Expectorated Sputum - Final Resulted 06/25/24 16:06 Sputum Expectorated Sputum Acid Fast Bacilli Culture Pending Resulted 06/21/24 18:18 Blood Blood Culture - Final NO GROWTH AFTER 5 DAYS OF INCUBATION. 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
[2024-06-30] MEDS: UREA 15gm PO Powder PKG PO SCH (14:11)
--- NOTE | 2024-06-30 23:13 | DVHPN2 ---
Progress Note - Dictate Date Seen: Jun 30, 2024 Has the PT tested + for MRSA If YES, has PT been informed?: Yes Medical Necessity Reason Pt with a Central, PICC or Fol: No Subjective Patient seen and examined at bedside. On room air Overnight events reviewed. vital signs Vital Sign Date Time Temp Pulse Resp B/P (MAP) Pulse Ox O2 Delivery O2 Flow Rate FiO2 06/30/24 22:16 129 107/67 06/30/24 21:00 98.5 16 99 98.5 06/30/24 08:00 Room Air* 0 21 Total Intake and Output 06/29/24 06/29/24 06/30/24 15:00 23:00 07:00 Intake Total 400 ml 200 ml Output Total 925 ml 300 ml Balance -925 ml 100 ml 200 ml medications Current Medications Medications Dose Ordered Sig/Sean Route Start Time Stop Time Status Last Admin Dose Admin Guaifenesin/ Dextromethorphan 10 ml Q4HP PRN PO 06/08/24 11:00 06/26/24 09:32 10 ML Morphine Sulfate 1 mg Q4HPRN PRN IV 06/16/24 14:00 06/26/24 09:34 1 MG Docusate Sodium 100 mg BID PRN PO 06/16/24 14:00 06/26/24 09:32 100 MG Ondansetron HCl 4 mg Q4HP PRN IV 06/21/24 16:00 06/29/24 21:36 4 MG Metoclopramide HCl 10 mg Q8HPRN PRN IV 06/21/24 16:00 06/23/24 21:15 10 MG Diphenhydramine HCl 25 mg Q6HP PRN PO 06/21/24 17:00 Furosemide 20 mg BIDD IV 06/25/24 10:45 06/27/24 17:31 20 MG Nystatin 5 ml QID MT 06/27/24 12:00 06/30/24 22:14 5 ML Carbamide Peroxide 5 drop Q12HR EACH EAR 06/27/24 10:00 06/30/24 22:15 5 DROP Pantoprazole Sodium 40 mg DAILY@0600 PO 06/29/24 06:00 06/30/24 06:10 40 MG Ursodiol 300 mg BID PO 06/28/24 22:00 06/30/24 22:22 300 MG Metoprolol Tartrate 12.5 mg BID PO 06/29/24 11:45 06/30/24 22:16 12.5 MG Morphine Sulfate 2 mg Q4HPRN PRN IV 06/29/24 16:45 Hydrocortisone 1 applic BID TOP 06/29/24 22:00 06/30/24 22:16 1 APPLIC Urea 15 gm TID PO 06/30/24 14:00 06/30/24 22:16 15 GM Sodium Bicarbonate 650 mg TID PO 06/30/24 11:30 06/30/24 22:18 650 MG objective Gen.: Patient lying in bed in no apparent distress. On room air Head: Normocephalic, atraumatic. Eyes: EOMI/PERRLA. Ears: Normal hearing. Normal anatomy. Neck/trachea: Trachea midline, supple. Nose: Normal external anatomy. Mouth: Moist mucous membranes. Chest: Decreased air entry bilaterally. No wheezing or rhonchi. Cardiovascular: Positive S1, positive S2. Regular rate and rhythm. Abdomen: Positive bowel sounds in all 4 quadrants. Soft, non-tender, non- distended. : Deferred. Rectal: Deferred. Skin: Warm, dry. Intact. Extremities: 2+ radial pulses bilaterally. No lower extremity edema. Neuro: Awake, alert, oriented x3. No gross motor or sensory deficits. Cranial nerves II through XII intact. Gait not assessed. laboratory and microbiology Laboratory Tests 06/30/24 05:40 Test 06/30/24 05:40 Range/Units Serum Glucose 115 H 74-106 mg/dL Assessment/Plan Impression: Cough HIV (recent diagnosis) Anemia Elevated LFTs Atypical pneumonia SIADH Events: Remains on room air Supplemental oxygen PRN AFB smears negative x3. Nystatin suspension Sodium bicarb tabs Continue ursodiol TB negative ID recommendations appreciated. Monitor WBC. Antiemetics PRN. GI recs appreciated. Check stool for bacteria, ova and parasites. Incentive spirometry Lasix on hold Monitor renal function Monitor electrolytes - supplement as necessary Hyponatremia w/ sodium 123 Nephrology recommendations appreciated Ure-Na started by Nephrology DVT prophylaxis w/ Lovenox Patient is stable for discharge from the pulmonary standpoint Disposition per hospitalist Labs reviewed. Rest of plan as noted below Plan: On room air Supplemental oxygen PRN Titrate to keep O2 sats above 92%. 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 Monitor electrolytes. Supplement as necessary. Monitor ins and outs. DVT prophylaxis. Prognosis: Poor given patient's multiple co-morbidities. Rest of plan per hospitalist and other consultants. Thank you Dr. Cruz, for allowing me to participate in this patient's care. Further recommendations will depend on the patient's clinical course. Please do not hesitate to contact me if you have any questions or concerns. This medical document was created using an electronic medical record system with Box dictation system. Although these documentations are being carefully reviewed, there may still be some phonetic and typographical changes. The errors are purely typographical, due to imperfection on the software program, and do not reflect any compromise in the patient's medical care. Dietary Evaluation Review Comments: Encourage and monitor PO intake to meet 75% of his needs Expected Outcomes/Goals: free from symptoms, gradual weight gain. Plan discussed with: Patient, Other (RN Lori) ANGELIC OTOOLE MD Jun 30, 2024 23:13
[2024-07-01] VITALS (10 sets, daily range): BP systolic 108–115; BP diastolic 53–72; PULSE 108–131; RESP 16–19; TEMP 97.5–99.5; O2SAT 98–100
--- NOTE | 2024-07-01 10:22 | DVHPN2 ---
Reviewed: Care Plan, H&P, Labs, Medications, Previous Orders, Radiology, Other (Consultations) Changes from previous H/P or p: No Changes General: No Night Sweats, No Fatigue Neurological: No Weakness, No Numbness Cardiovascular: No Chest Pain Respiratory: Cough, Shortness of breath Gastrointestinal: No Nausea Musculoskeletal: No leg pain Endocrine: No Cold Intolerance Hematology: No Abnormal Bleeding Objective Vitals Vital Signs Date Time Temp Pulse Resp B/P (MAP) Pulse Ox O2 Delivery O2 Flow Rate FiO2 07/01/24 09:00 97.5 114 18 114/72 (86) 99 97.5 06/30/24 20:00 Room Air* 0 21 Intake/Output Intake and Output 07/01/24 07:00 Intake Total 1880 ml Output Total 2190 ml Balance -310 ml Intake Oral 1880 ml Output Urine Total 2190 ml General Appearance: Alert, Oriented X3, Cooperative, moderate distress HEENT: Atraumatic, PERRLA Lungs: Other Cardiovascular: Regular rate, Normal S1, Normal S2, No murmurs Abdomen: Normal bowel sounds, Soft, No tenderness, No hepatospenomegaly Genitourinary: No Apparent Abnormalities Extremities: No edema Neuro: Normal speech, Sensation intact Skin: Dry, Intact Psych/Mental Status: Mental status NL, Mood NL Medications Current Medications Medications Dose Ordered Sig/Sean Route Start Time Stop Time Status Last Admin Dose Admin Guaifenesin/ Dextromethorphan 10 ml Q4HP PRN PO 06/08/24 11:00 06/26/24 09:32 10 ML Morphine Sulfate 1 mg Q4HPRN PRN IV 06/16/24 14:00 06/26/24 09:34 1 MG Docusate Sodium 100 mg BID PRN PO 06/16/24 14:00 06/26/24 09:32 100 MG Ondansetron HCl 4 mg Q4HP PRN IV 06/21/24 16:00 06/29/24 21:36 4 MG Metoclopramide HCl 10 mg Q8HPRN PRN IV 06/21/24 16:00 06/23/24 21:15 10 MG Diphenhydramine HCl 25 mg Q6HP PRN PO 06/21/24 17:00 Furosemide 20 mg BIDD IV 06/25/24 10:45 06/27/24 17:31 20 MG Nystatin 5 ml QID MT 06/27/24 12:00 07/01/24 06:41 5 ML Carbamide Peroxide 5 drop Q12HR EACH EAR 06/27/24 10:00 06/30/24 22:15 5 DROP Pantoprazole Sodium 40 mg DAILY@0600 PO 06/29/24 06:00 07/01/24 06:41 40 MG Ursodiol 300 mg BID PO 06/28/24 22:00 06/30/24 22:22 300 MG Metoprolol Tartrate 12.5 mg BID PO 06/29/24 11:45 06/30/24 22:16 12.5 MG Morphine Sulfate 2 mg Q4HPRN PRN IV 06/29/24 16:45 Hydrocortisone 1 applic BID TOP 06/29/24 22:00 06/30/24 22:16 1 APPLIC Urea 15 gm TID PO 06/30/24 14:00 07/01/24 06:42 15 GM Sodium Bicarbonate 650 mg TID PO 06/30/24 11:30 07/01/24 06:41 650 MG Laboratory Results Laboratory Tests 06/30/24 05:40 Urinalysis Test 06/12/24 20:52 06/19/24 10:30 06/23/24 09:13 06/26/24 16:32 Urine Mucus Few (None Seen) Urine Sodium 76 mmol/L (40-220) Urine Color Yellow (Yellow) Urine Clarity Clear (Clear) Urine pH 6.5 (5.0-9.0) Urine Specific [place] 1.013 (1.001-1.035) Urine Protein Trace (Negative) H Urine Ketones Negative (Negative) Urine Blood Trace /uL (Negative) H Urine Nitrite Negative (Negative) Urine Bilirubin 1+ (Negative) Urine Urobilinogen 6 mg/dL (Negative) Urine Leukocyte Esterase Negative /uL (Negative) Urine RBC <1 /hpf (0 - 3) Urine WBC 1 /hpf (0 - 3) Urine Squamous Epithelial Cells None seen /hpf (<5) Urine Bacteria None seen /hpf (None Seen) Urine Glucose Normal mg/dL (Normal) Urine Osmolality 752 mOsm/kg Microbiology Microbiology Date/Time Source Procedure Growth Status 06/29/24 06:30 Sputum AFB Broth Culture Pending Resulted 06/29/24 06:30 Sputum - Final Resulted 06/29/24 06:30 Sputum - Final Resulted 06/29/24 06:30 Sputum Acid Fast Bacilli Culture Pending Resulted 06/21/24 18:18 Blood Blood Culture - Final NO GROWTH AFTER 5 DAYS OF INCUBATION. Complete 06/21/24 14:30 Nose MRSA Screen - Final Complete Labs and/or images reviewed: Labs reviewed by me, Image(s) reviewed by me Assessment/Plan Assessment/Plan -covering for [employer] Blake sullivan acute hypoxic respiratory failure -multifocal pneumonia, probable -rule out tuberculosis -scoliosis -HIV/AIDS : New diagnosis -hyponatremia: Nephrology placed him on urea sodium -SIADH Continue Current management Time spent 45 minutes Seen in [facility] Sputum acid-fast bacillus cultures pending Continue current management Plan discussed with: Patient Date of Service: Jul 01, 2024 Billing Provider: ANKITA JOHN MD Common Visit Codes: [id number] INP/OBS CARE(HIGH) ANKITA JOHN MD Jul 01, 2024 10:22
--- NOTE | 2024-07-01 11:06 | DVHPN2 ---
Progress Note Date Seen: Jul 01, 2024 Has the PT tested + for MRSA If YES, has PT been informed?: Yes Medical Necessity Reason Pt with a Central, PICC or Fol: No Subjective Patient reports: No new complaints Other Systems: Patient seen and examined by myself today in follow-up Objective vital signs Vital Sign Date Time Temp Pulse Resp B/P (MAP) Pulse Ox O2 Delivery O2 Flow Rate FiO2 07/01/24 10:49 114 114/72 07/01/24 09:00 97.5 18 99 97.5 06/30/24 20:00 Room Air* 0 21 Total Intake and Output 06/30/24 06/30/24 07/01/24 15:00 23:00 07:00 Intake Total 1080 ml 800 ml Output Total 1700 ml 490 ml Balance -620 ml 310 ml medications Current Medications Medications Dose Ordered Sig/Sean Route Start Time Stop Time Status Last Admin Dose Admin Guaifenesin/ Dextromethorphan 10 ml Q4HP PRN PO 06/08/24 11:00 06/26/24 09:32 10 ML Morphine Sulfate 1 mg Q4HPRN PRN IV 06/16/24 14:00 06/26/24 09:34 1 MG Docusate Sodium 100 mg BID PRN PO 06/16/24 14:00 06/26/24 09:32 100 MG Ondansetron HCl 4 mg Q4HP PRN IV 06/21/24 16:00 06/29/24 21:36 4 MG Metoclopramide HCl 10 mg Q8HPRN PRN IV 06/21/24 16:00 06/23/24 21:15 10 MG Diphenhydramine HCl 25 mg Q6HP PRN PO 06/21/24 17:00 Furosemide 20 mg BIDD IV 06/25/24 10:45 06/27/24 17:31 20 MG Nystatin 5 ml QID MT 06/27/24 12:00 07/01/24 06:41 5 ML Carbamide Peroxide 5 drop Q12HR EACH EAR 06/27/24 10:00 06/30/24 22:15 5 DROP Pantoprazole Sodium 40 mg DAILY@0600 PO 06/29/24 06:00 07/01/24 06:41 40 MG Ursodiol 300 mg BID PO 06/28/24 22:00 07/01/24 10:49 300 MG Metoprolol Tartrate 12.5 mg BID PO 06/29/24 11:45 07/01/24 10:49 12.5 MG Morphine Sulfate 2 mg Q4HPRN PRN IV 06/29/24 16:45 Hydrocortisone 1 applic BID TOP 06/29/24 22:00 07/01/24 10:49 1 APPLIC Urea 15 gm TID PO 06/30/24 14:00 07/01/24 06:42 15 GM Sodium Bicarbonate 650 mg TID PO 06/30/24 11:30 07/01/24 06:41 650 MG Examination: LUNGS:Normal, CVS:Normal, MSK:Normal laboratory and microbiology Laboratory Tests 06/30/24 05:40 Test 06/30/24 05:40 Range/Units Serum Glucose 115 H 74-106 mg/dL Microbiology Date/Time Source Procedure Growth Status 06/29/24 06:30 Sputum AFB Broth Culture Pending Resulted 06/29/24 06:30 Sputum - Final Resulted 06/29/24 06:30 Sputum - Final Resulted 06/29/24 06:30 Sputum Acid Fast Bacilli Culture Pending Resulted 06/21/24 18:18 Blood Blood Culture - Final NO GROWTH AFTER 5 DAYS OF INCUBATION. Complete 06/21/24 14:30 Nose MRSA Screen - Final Complete Problem List/Assessment/Plan Problem List/Assessment/Plan hyponatremia likely secondary to SIADH aggravated by IV hypotonic solution Syndrome of inappropriate antidiuretic hormone secretion hyperkalemia , resolved Metabolic acidosis AIDS Jaundice Transaminitis PCP on bactrim IV now switched to p.o. PNA leukopenia r/o TB Recommendations Serum sodium appropriately on slowly improving Kidney function remained within normal limit Avoid rapid correction of Na Furosemide 20 mg IV b.i.d. Fluid restriction Urea-sodium 15 g p.o. t.i.d. Sodium bicarb 650 mg p.o. t.i.d. KCL replacement ID consult will continue to follow Plan discussed with: Patient My Orders My Orders Orders - YONATHAN YAÑEZ MD Procedure Category Date Status Time Urea (Ure-Na) PHA 06/30/24 In Process 14:00 Sodium Bicarb Tab PHA 06/30/24 In Process 11:30 Dietary Evaluation Review Comments: Encourage and monitor PO intake to meet 75% of his needs Expected Outcomes/Goals: free from symptoms, gradual weight gain. YONATHAN YAÑEZ MD Jul 01, 2024 11:06
--- NOTE | 2024-07-01 19:41 | DVHPN2 ---
Progress Note - Dictate Date Seen: Jul 01, 2024 Has the PT tested + for MRSA If YES, has PT been informed?: Yes Medical Necessity Reason Pt with a Central, PICC or Fol: No Subjective Patient is in isolation. Patient has AIDS with opportunistic infection. He reports fatigue and weakness. Diarrhea has resolved after discontinuation of lactulose. Liver enzymes and WBC trending down. vital signs Vital Sign Date Time Temp Pulse Resp B/P (MAP) Pulse Ox O2 Delivery O2 Flow Rate FiO2 07/01/24 16:43 98.0 108 19 113/62 (79) 100 98.0 07/01/24 08:00 Room Air* 0 21 Total Intake and Output 06/30/24 06/30/24 07/01/24 15:00 23:00 07:00 Intake Total 1080 ml 800 ml Output Total 1700 ml 490 ml Balance -620 ml 310 ml medications Current Medications Medications Dose Ordered Sig/Sean Route Start Time Stop Time Status Last Admin Dose Admin Guaifenesin/ Dextromethorphan 10 ml Q4HP PRN PO 06/08/24 11:00 06/26/24 09:32 10 ML Morphine Sulfate 1 mg Q4HPRN PRN IV 06/16/24 14:00 07/01/24 15:14 1 MG Docusate Sodium 100 mg BID PRN PO 06/16/24 14:00 06/26/24 09:32 100 MG Ondansetron HCl 4 mg Q4HP PRN IV 06/21/24 16:00 06/29/24 21:36 4 MG Metoclopramide HCl 10 mg Q8HPRN PRN IV 06/21/24 16:00 06/23/24 21:15 10 MG Diphenhydramine HCl 25 mg Q6HP PRN PO 06/21/24 17:00 Furosemide 20 mg BIDD IV 06/25/24 10:45 06/27/24 17:31 20 MG Nystatin 5 ml QID MT 06/27/24 12:00 07/01/24 17:06 5 ML Carbamide Peroxide 5 drop Q12HR EACH EAR 06/27/24 10:00 06/30/24 22:15 5 DROP Pantoprazole Sodium 40 mg DAILY@0600 PO 06/29/24 06:00 07/01/24 06:41 40 MG Ursodiol 300 mg BID PO 06/28/24 22:00 07/01/24 10:49 300 MG Metoprolol Tartrate 12.5 mg BID PO 06/29/24 11:45 07/01/24 10:49 12.5 MG Morphine Sulfate 2 mg Q4HPRN PRN IV 06/29/24 16:45 Hydrocortisone 1 applic BID TOP 06/29/24 22:00 07/01/24 10:49 1 APPLIC Urea 15 gm TID PO 06/30/24 14:00 07/01/24 14:22 15 GM Sodium Bicarbonate 650 mg TID PO 06/30/24 11:30 07/01/24 14:22 650 MG Potassium Bicarbonate 25 meq DAILY PO 07/02/24 10:00 objective General Appearance: Alert, Oriented X3, Cooperative, No acute distress HEENT: Atraumatic Respiratory: Other (Scattered crackles; good air entry bilateral) Cardiovascular: Regular rate, Normal S1, Normal S2 Abdominal: Normal bowel sounds, Soft, No tenderness Neuro: Normal gait, Normal speech, Strength at 5/5 X4 ext, Normal tone, Sensation intact, Cranial nerves 3-12 NL, Reflexes 2+ Psych/Mental Status: Mental status NL, Mood NL laboratory and microbiology Laboratory Tests 06/30/24 05:40 Test 06/30/24 05:40 Range/Units Serum Glucose 115 H 74-106 mg/dL Assessment/Plan Patient is a 28-year-old male with elevated liver enzymes elevated bilirubin # hyponatremia SIADH AIDS Pneumocystis Jerovoci or Carini Pneumonia ( opportunistic infection) multifocal pneumonia: atypical in nature Possible PCP pneumonia pulmonary nodule Homosexual elevated LFT anemia Immunosuppressed Recommendations: 06/29, Patient's AST is 254 and ALT is 608, repeat labs Liver enzymes and WBC trending down. send g6pd test for alternative rx option for PCP Pneumonia Urine opiates screen is positive Dc Bactrim ? drug induced but too high GI on board monitor LFTS MRCP unremarkable for biliary dilation stop date of bactrim was 07/04/2024,and plan was to switch to prophylaxis dose severe hyponatremia, nephrology on board 06/25, Sputum culture [AFB] pending 06/28, AFB Smear pending , AFB Smear pending AFB stain is negative x1 neg follow Quantiferon gold, indeterminate AFB screen x 3 pending; infection control HIV-1 RNA [PCR]: [id number]: needs ART therapy will start as outpt BAL sample to be sent for bacterial, fungal, AFB and viral cultures. follow 06/17/2024 : Chest x-ray showed Bilateral opacities which may reflect multifocal pneumonia. Prognosis guarded Thank you for consult Dietary Evaluation Review Comments: Encourage and monitor PO intake to meet 75% of his needs Expected Outcomes/Goals: free from symptoms, gradual weight gain. Plan discussed with: Other HOMERO VIGIL MD Jul 01, 2024 19:41
--- NOTE | 2024-07-01 21:13 | DVHPN2 ---
Progress Note - Dictate Date Seen: Jul 01, 2024 Has the PT tested + for MRSA If YES, has PT been informed?: Yes Medical Necessity Reason Pt with a Central, PICC or Fol: No Subjective Patient is in isolation Patient has AIDS with opportunistic infection C/o fatigue and weakness Liver enzymes and WBC trending down Denies any rectal bleeding today Diarrhea has resolved after discontinuation of lactulose vital signs Vital Sign Date Time Temp Pulse Resp B/P (MAP) Pulse Ox O2 Delivery O2 Flow Rate FiO2 07/01/24 20:27 Room Air* 0 21 07/01/24 16:43 98.0 108 19 113/62 (79) 100 98.0 Total Intake and Output 06/30/24 06/30/24 07/01/24 15:00 23:00 07:00 Intake Total 1080 ml 800 ml Output Total 1700 ml 490 ml Balance -620 ml 310 ml medications Current Medications Medications Dose Ordered Sig/Sean Route Start Time Stop Time Status Last Admin Dose Admin Guaifenesin/ Dextromethorphan 10 ml Q4HP PRN PO 06/08/24 11:00 06/26/24 09:32 10 ML Morphine Sulfate 1 mg Q4HPRN PRN IV 06/16/24 14:00 07/01/24 15:14 1 MG Docusate Sodium 100 mg BID PRN PO 06/16/24 14:00 06/26/24 09:32 100 MG Ondansetron HCl 4 mg Q4HP PRN IV 06/21/24 16:00 06/29/24 21:36 4 MG Metoclopramide HCl 10 mg Q8HPRN PRN IV 06/21/24 16:00 06/23/24 21:15 10 MG Diphenhydramine HCl 25 mg Q6HP PRN PO 06/21/24 17:00 Furosemide 20 mg BIDD IV 06/25/24 10:45 06/27/24 17:31 20 MG Nystatin 5 ml QID MT 06/27/24 12:00 07/01/24 17:06 5 ML Carbamide Peroxide 5 drop Q12HR EACH EAR 06/27/24 10:00 06/30/24 22:15 5 DROP Pantoprazole Sodium 40 mg DAILY@0600 PO 06/29/24 06:00 07/01/24 06:41 40 MG Ursodiol 300 mg BID PO 06/28/24 22:00 07/01/24 10:49 300 MG Metoprolol Tartrate 12.5 mg BID PO 06/29/24 11:45 07/01/24 10:49 12.5 MG Morphine Sulfate 2 mg Q4HPRN PRN IV 06/29/24 16:45 Hydrocortisone 1 applic BID TOP 06/29/24 22:00 07/01/24 10:49 1 APPLIC Urea 15 gm TID PO 06/30/24 14:00 07/01/24 14:22 15 GM Sodium Bicarbonate 650 mg TID PO 06/30/24 11:30 07/01/24 14:22 650 MG Potassium Bicarbonate 25 meq DAILY PO 07/02/24 10:00 objective General Appearance: Alert, Oriented X3, Cooperative, mild distress; appears chronically ill HEENT: Atraumatic, PERRLA Lungs: Other, bilateral rhonchi Cardiovascular: Regular rate, Normal S1, Normal S2, No murmurs Abdomen: Normal bowel sounds, Soft, No tenderness, No hepatospenomegaly Genitourinary: No Apparent Abnormalities Extremities: No edema Neuro: Normal speech, Sensation intact Skin: Dry, Intact Psych/Mental Status: Mental status NL, Mood NL laboratory and microbiology Laboratory Tests 06/30/24 05:40 Test 06/30/24 05:40 Range/Units Serum Glucose 115 H 74-106 mg/dL Problems(with codes): (1) Elevated liver enzymes (2) HIV (human immunodeficiency virus infection) (3) Atypical pneumonia (4) AIDS (acquired immune deficiency syndrome) (5) History of SIADH (6) Hyponatremia Prognosis Plan Continue supportive care ID consult appreciated Patient is tolerating diet Monitor labs, sodium level improving He is looking for emotional support and asked for the employment representative Patient will be started on to [facility] as an outpatient Dietary Evaluation Review Comments: Encourage and monitor PO intake to meet 75% of his needs Expected Outcomes/Goals: free from symptoms, gradual weight gain. Plan discussed with: Other (Dr Mai) JOB MCNEIL MD Jul 01, 2024 21:13
--- NOTE | 2024-07-01 23:24 | DVHPN2 ---
Progress Note - Dictate Date Seen: Jul 01, 2024 Has the PT tested + for MRSA If YES, has PT been informed?: Yes Medical Necessity Reason Pt with a Central, PICC or Fol: No Subjective Patient seen and examined at bedside. On room air Overnight events reviewed. vital signs Vital Sign Date Time Temp Pulse Resp B/P (MAP) Pulse Ox O2 Delivery O2 Flow Rate FiO2 07/01/24 22:26 119 113/70 07/01/24 20:27 Room Air* 0 21 07/01/24 16:43 98.0 19 100 98.0 Total Intake and Output 06/30/24 06/30/24 07/01/24 15:00 23:00 07:00 Intake Total 1080 ml 800 ml Output Total 1700 ml 490 ml Balance -620 ml 310 ml medications Current Medications Medications Dose Ordered Sig/Sean Route Start Time Stop Time Status Last Admin Dose Admin Guaifenesin/ Dextromethorphan 10 ml Q4HP PRN PO 06/08/24 11:00 06/26/24 09:32 10 ML Morphine Sulfate 1 mg Q4HPRN PRN IV 06/16/24 14:00 07/01/24 15:14 1 MG Docusate Sodium 100 mg BID PRN PO 06/16/24 14:00 06/26/24 09:32 100 MG Ondansetron HCl 4 mg Q4HP PRN IV 06/21/24 16:00 06/29/24 21:36 4 MG Metoclopramide HCl 10 mg Q8HPRN PRN IV 06/21/24 16:00 06/23/24 21:15 10 MG Diphenhydramine HCl 25 mg Q6HP PRN PO 06/21/24 17:00 Furosemide 20 mg BIDD IV 06/25/24 10:45 06/27/24 17:31 20 MG Nystatin 5 ml QID MT 06/27/24 12:00 07/01/24 22:22 5 ML Carbamide Peroxide 5 drop Q12HR EACH EAR 06/27/24 10:00 07/01/24 22:24 5 DROP Pantoprazole Sodium 40 mg DAILY@0600 PO 06/29/24 06:00 07/01/24 06:41 40 MG Ursodiol 300 mg BID PO 06/28/24 22:00 07/01/24 22:26 300 MG Metoprolol Tartrate 12.5 mg BID PO 06/29/24 11:45 07/01/24 22:26 12.5 MG Morphine Sulfate 2 mg Q4HPRN PRN IV 06/29/24 16:45 Hydrocortisone 1 applic BID TOP 06/29/24 22:00 07/01/24 22:24 1 APPLIC Urea 15 gm TID PO 06/30/24 14:00 07/01/24 22:23 15 GM Sodium Bicarbonate 650 mg TID PO 06/30/24 11:30 07/01/24 22:23 650 MG Potassium Bicarbonate 25 meq DAILY PO 07/02/24 10:00 objective Gen.: Patient lying in bed in no apparent distress. On room air Head: Normocephalic, atraumatic. Eyes: EOMI/PERRLA. Ears: Normal hearing. Normal anatomy. Neck/trachea: Trachea midline, supple. Nose: Normal external anatomy. Mouth: Moist mucous membranes. Chest: Decreased air entry bilaterally. No wheezing or rhonchi. Cardiovascular: Positive S1, positive S2. Regular rate and rhythm. Abdomen: Positive bowel sounds in all 4 quadrants. Soft, non-tender, non- distended. : Deferred. Rectal: Deferred. Skin: Warm, dry. Intact. Extremities: 2+ radial pulses bilaterally. No lower extremity edema. Neuro: Awake, alert, oriented x3. No gross motor or sensory deficits. Cranial nerves II through XII intact. Gait not assessed. laboratory and microbiology Laboratory Tests 06/30/24 05:40 Test 06/30/24 05:40 Range/Units Serum Glucose 115 H 74-106 mg/dL Assessment/Plan Impression: Cough HIV (recent diagnosis) Anemia Elevated LFTs Atypical pneumonia SIADH Events: Remains on room air Supplemental oxygen PRN Nystatin suspension Sodium bicarb tabs Continue ursodiol AFB smears negative x3. TB negative ID recommendations appreciated. Monitor WBC. Antiemetics PRN. GI recs appreciated. Check stool for bacteria, ova and parasites. Incentive spirometry Lasix on hold Monitor renal function Monitor electrolytes - supplement as necessary Monitor sodium d/t hyponatremia Nephrology recommendations appreciated On Ure-Na started by Nephrology DVT prophylaxis w/ Lovenox Patient is stable for discharge from the pulmonary standpoint Disposition per hospitalist Labs reviewed. Rest of plan as noted below Plan: On room air Supplemental oxygen PRN Titrate to keep O2 sats above 92%. 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 Monitor electrolytes. Supplement as necessary. Monitor ins and outs. DVT prophylaxis. Prognosis: Poor given patient's multiple co-morbidities. Rest of plan per hospitalist and other consultants. Thank you Dr. Cruz, for allowing me to participate in this patient's care. Further recommendations will depend on the patient's clinical course. Please do not hesitate to contact me if you have any questions or concerns. This medical document was created using an electronic medical record system with [employer] dictation system. Although these documentations are being carefully reviewed, there may still be some phonetic and typographical changes. The errors are purely typographical, due to imperfection on the software program, and do not reflect any compromise in the patient's medical care. Dietary Evaluation Review Comments: Encourage and monitor PO intake to meet 75% of his needs Expected Outcomes/Goals: free from symptoms, gradual weight gain. Plan discussed with: Patient, Other (AALIYAH Sandoval) ANGELIC OTOOLE MD Jul 01, 2024 23:24
[2024-07-02] VITALS (7 sets, daily range): BP systolic 106–120; BP diastolic 55–73; PULSE 116–129; RESP 18–20; TEMP 98.1–98.2; O2SAT 98–100
[2024-07-02 10:09] LABS: Red Cell Distribution Width 17.1 % (11.8-14.3)
[2024-07-02 10:13] LABS: Hematocrit 24.4 % (41.0-53.0); Hemoglobin 8.4 g/dL (13.5-17.5); Mean Corpuscular Hemoglobin 26.8 pg (28.0-32.0); Mean Corpuscular Hgb Conc. 34.4 g/dL (32.0-36.0); Mean Corpuscular Volume 77.9 fL (80.0-100.0); Platelet Count (auto) 171 10^3/uL (140-450); Red Blood Cells 3.13 10^6/uL (4.5-5.90)
[2024-07-02 10:15] LABS: White Blood Cell 1.8 10^3/uL (4.4-10.8)
[2024-07-02 10:16] LABS: Basophils % (manual) 0 (0.0-2.0); Blast Cells 0; Eosinophils % (manual) 0 (0-7); Metamyelocytes % 0; Myelocytes % 0; Promyelocytes % 0; Reactive Lymphocytes 0
--- NOTE | 2024-07-02 10:25 | DVHPN2 ---
Progress Note Date Seen: Jul 02, 2024 Has the PT tested + for MRSA If YES, has PT been informed?: Yes Medical Necessity Reason Pt with a Central, PICC or Fol: No Objective vital signs Vital Sign Date Time Temp Pulse Resp B/P (MAP) Pulse Ox O2 Delivery O2 Flow Rate FiO2 07/01/24 23:27 125 18 109/64 (79) 98 07/01/24 20:27 Room Air* 0 21 07/01/24 16:43 98.0 98.0 Total Intake and Output 07/01/24 07/01/24 07/02/24 15:00 23:00 07:00 Intake Total 480 ml 200 ml Output Total 850 ml 780 ml Balance -370 ml -580 ml medications Current Medications Medications Dose Ordered Sig/Sean Route Start Time Stop Time Status Last Admin Dose Admin Guaifenesin/ Dextromethorphan 10 ml Q4HP PRN PO 06/08/24 11:00 06/26/24 09:32 10 ML Morphine Sulfate 1 mg Q4HPRN PRN IV 06/16/24 14:00 07/01/24 15:14 1 MG Docusate Sodium 100 mg BID PRN PO 06/16/24 14:00 06/26/24 09:32 100 MG Ondansetron HCl 4 mg Q4HP PRN IV 06/21/24 16:00 07/02/24 00:49 4 MG Metoclopramide HCl 10 mg Q8HPRN PRN IV 06/21/24 16:00 07/02/24 04:23 10 MG Diphenhydramine HCl 25 mg Q6HP PRN PO 06/21/24 17:00 Furosemide 20 mg BIDD IV 06/25/24 10:45 06/27/24 17:31 20 MG Nystatin 5 ml QID MT 06/27/24 12:00 07/02/24 05:42 5 ML Carbamide Peroxide 5 drop Q12HR EACH EAR 06/27/24 10:00 07/01/24 22:24 5 DROP Pantoprazole Sodium 40 mg DAILY@0600 PO 06/29/24 06:00 07/02/24 05:42 40 MG Ursodiol 300 mg BID PO 06/28/24 22:00 07/01/24 22:26 300 MG Metoprolol Tartrate 12.5 mg BID PO 06/29/24 11:45 07/01/24 22:26 12.5 MG Morphine Sulfate 2 mg Q4HPRN PRN IV 06/29/24 16:45 Hydrocortisone 1 applic BID TOP 06/29/24 22:00 07/01/24 22:24 1 APPLIC Urea 15 gm TID PO 06/30/24 14:00 07/01/24 22:23 15 GM Sodium Bicarbonate 650 mg TID PO 06/30/24 11:30 07/02/24 05:42 650 MG Potassium Bicarbonate 25 meq DAILY PO 07/02/24 10:00 Examination: GENERAL:Abnormal, CVS:Abnormal, ABDOMEN:Abnormal laboratory and microbiology Laboratory Tests 07/02/24 09:52 Test 07/02/24 09:52 Range/Units Serum Glucose Pending Microbiology Date/Time Source Procedure Growth Status 06/29/24 06:30 Sputum AFB Broth Culture Pending Resulted 06/29/24 06:30 Sputum - Final Resulted 06/29/24 06:30 Sputum - Final Resulted 06/29/24 06:30 Sputum Acid Fast Bacilli Culture Pending Resulted 06/21/24 18:18 Blood Blood Culture - Final NO GROWTH AFTER 5 DAYS OF INCUBATION. Complete 06/21/24 14:30 Nose MRSA Screen - Final Complete Problem List/Assessment/Plan Problem List/Assessment/Plan hyponatremia likely secondary to SIADH aggravated by IV hypotonic solution Syndrome of inappropriate antidiuretic hormone secretion AIDS Jaundice Transaminitis PCP on bactrim IV now switched to p.o. PNA leukopenia r/o TB Serum sodium appropriately on slowly improving Kidney function remained within normal limit Avoid rapid correction of Na Furosemide 20 mg IV b.i.d. Fluid restriction Urea-sodium 15 g p.o. t.i.d. Sodium bicarb 650 mg p.o. t.i.d. KCL replacement ID consult Plan discussed with: Patient Dietary Evaluation Review Comments: Encourage and monitor PO intake to meet 75% of his needs Expected Outcomes/Goals: free from symptoms, gradual weight gain. BELL BLANK MD Jul 02, 2024 10:25
[2024-07-02 10:30] LABS: Albumin 3.7 g/dL (3.2-4.8); Anion Gap 9 (5-15); Blood Urea Nitrogen 15 mg/dL (9-23); Carbon Dioxide 23 mmol/L (20-31)
[2024-07-02 10:31] LABS: Alanine Aminotransferase 196 U/L (7-40); Alkaline Phosphatase 710 U/L (46-116); Aspartate Aminotransferase 71 U/L (13-40); Bilirubin, Total 9.8 mg/dL (0.2-1.0); Chloride 88 mmol/L (98-107); Glucose 109 mg/dL (74-106); Potassium 3.2 mmol/L (3.5-5.1); Sodium 120 mmol/L (136-145)
[2024-07-02] MEDS: POTASSIUM EFFERVESENT TAB 25 MEQ PO SCH (10:40)
[2024-07-02 10:43] LABS: Band Neutrophils % (manual) 3
[2024-07-02 10:45] LABS: BUN/Creatinine Ratio 30.6 (10.0-20.0); Lymphocytes % (manual) 19 (10.0-50.0); Monocytes % (manual) 16 (0-12)
[2024-07-02 10:46] LABS: Anisocytosis Slight
[2024-07-02 10:47] LABS: Platelet Estimate Adequate
[2024-07-02] MEDS ORDERED: DOCUSATE SOD 100 MG CAP PO PRN (14:30)
--- NOTE | 2024-07-02 14:33 | DVHPN2 ---
Subjective Patient reports not feeling well today. Reports having poor appetite, constipation. Reviewed: Care Plan, H&P, Labs, Medications, Previous Orders, Radiology, Other (Consultations) Changes from previous H/P or p: No Changes General: No Night Sweats, No Fatigue Neurological: No Weakness, No Numbness Cardiovascular: No Chest Pain Respiratory: Cough, Shortness of breath Gastrointestinal: No Nausea Musculoskeletal: No leg pain Endocrine: No Cold Intolerance Hematology: No Abnormal Bleeding Objective Vitals Vital Signs Date Time Temp Pulse Resp B/P (MAP) Pulse Ox O2 Delivery O2 Flow Rate FiO2 07/02/24 12:03 119 115/69 07/02/24 09:00 98.1 19 98 98.1 07/02/24 07:55 Room Air* 0 21 Intake/Output Intake and Output 07/02/24 07:00 Intake Total 680 ml Output Total 1630 ml Balance -950 ml Intake Oral 680 ml Output Urine Total 1630 ml # Voids 2 General Appearance: Alert, Oriented X3, Cooperative, moderate distress HEENT: Atraumatic, PERRLA Lungs: Other Cardiovascular: Regular rate, Normal S1, Normal S2, No murmurs Abdomen: Normal bowel sounds, Soft, No tenderness, No hepatospenomegaly Genitourinary: No Apparent Abnormalities Extremities: No edema Neuro: Normal speech, Sensation intact Skin: Dry, Intact Psych/Mental Status: Mental status NL, Mood NL Medications Current Medications Medications Dose Ordered Sig/Sean Route Start Time Stop Time Status Last Admin Dose Admin Guaifenesin/ Dextromethorphan 10 ml Q4HP PRN PO 06/08/24 11:00 06/26/24 09:32 10 ML Morphine Sulfate 1 mg Q4HPRN PRN IV 06/16/24 14:00 07/01/24 15:14 1 MG Docusate Sodium 100 mg BID PRN PO 06/16/24 14:00 06/26/24 09:32 100 MG Ondansetron HCl 4 mg Q4HP PRN IV 06/21/24 16:00 07/02/24 00:49 4 MG Metoclopramide HCl 10 mg Q8HPRN PRN IV 06/21/24 16:00 07/02/24 04:23 10 MG Diphenhydramine HCl 25 mg Q6HP PRN PO 06/21/24 17:00 Furosemide 20 mg BIDD IV 06/25/24 10:45 06/27/24 17:31 20 MG Nystatin 5 ml QID MT 06/27/24 12:00 07/02/24 12:01 5 ML Carbamide Peroxide 5 drop Q12HR EACH EAR 06/27/24 10:00 07/02/24 10:42 5 DROP Pantoprazole Sodium 40 mg DAILY@0600 PO 06/29/24 06:00 07/02/24 05:42 40 MG Ursodiol 300 mg BID PO 06/28/24 22:00 07/02/24 10:42 300 MG Morphine Sulfate 2 mg Q4HPRN PRN IV 06/29/24 16:45 Hydrocortisone 1 applic BID TOP 06/29/24 22:00 07/02/24 10:42 1 APPLIC Urea 15 gm TID PO 06/30/24 14:00 07/01/24 22:23 15 GM Sodium Bicarbonate 650 mg TID PO 06/30/24 11:30 07/02/24 05:42 650 MG Potassium Bicarbonate 25 meq DAILY PO 07/02/24 10:00 07/02/24 10:40 25 MEQ Metoprolol Tartrate 25 mg BID PO 07/02/24 22:00 Laboratory Results Laboratory Tests 07/02/24 09:52 Chemistry Test 07/02/24 09:52 Albumin 3.7 g/dL (3.2-4.8) Calcium Level 9.0 mg/dL (8.7-10.4) Total Protein 7.0 g/dL (5.7-8.2) LFT Test 07/02/24 09:52 Alanine Aminotransferase (ALT) 196 U/L (7-40) H Alkaline Phosphatase 710 U/L (46-116) H Aspartate Amino Transferase (AST) 71 U/L (13-40) H Total Bilirubin 9.8 mg/dL (0.2-1.0) H Urinalysis Test 06/12/24 20:52 06/19/24 10:30 06/23/24 09:13 06/26/24 16:32 Urine Mucus Few (None Seen) Urine Sodium 76 mmol/L (40-220) Urine Color Yellow (Yellow) Urine Clarity Clear (Clear) Urine pH 6.5 (5.0-9.0) Urine Specific [place] 1.013 (1.001-1.035) Urine Protein Trace (Negative) H Urine Ketones Negative (Negative) Urine Blood Trace /uL (Negative) H Urine Nitrite Negative (Negative) Urine Bilirubin 1+ (Negative) Urine Urobilinogen 6 mg/dL (Negative) Urine Leukocyte Esterase Negative /uL (Negative) Urine RBC <1 /hpf (0 - 3) Urine WBC 1 /hpf (0 - 3) Urine Squamous Epithelial Cells None seen /hpf (<5) Urine Bacteria None seen /hpf (None Seen) Urine Glucose Normal mg/dL (Normal) Urine Osmolality 752 mOsm/kg Microbiology Microbiology Date/Time Source Procedure Growth Status 06/29/24 06:30 Sputum AFB Broth Culture Pending Resulted 06/29/24 06:30 Sputum - Final Resulted 06/29/24 06:30 Sputum - Final Resulted 06/29/24 06:30 Sputum Acid Fast Bacilli Culture Pending Resulted 06/21/24 18:18 Blood Blood Culture - Final NO GROWTH AFTER 5 DAYS OF INCUBATION. Complete 06/21/24 14:30 Nose MRSA Screen - Final Complete Labs and/or images reviewed: Labs reviewed by me, Image(s) reviewed by me Assessment/Plan Assessment/Plan Impression: -acute hypoxic respiratory failure -multifocal pneumonia, probable P [place] -rule out tuberculosis -scoliosis -HIV/AIDS : New diagnosis -hyponatremia -SIADH -rhabdomyolysis from rigors and tremors -? Oral Jennie Plan: Events: Continues to have sinus tachycardia. Increase metoprolol tartrate 25 mg p.o. b.i.d.. Patient's sodium also noted to be decreasing. Continues to be on sodium bicarbonate as well as urea tablets. Patient also on fluid restriction and IV Lasix. -echocardiogram -further recommendations from Infectious Disease recommended -antiemetics -nephrology consultation: Appreciate recommendations for persistent hyponatremia -free water restriction, continue sodium tablets -pain management: [place] -O2 supplementation to keep saturation greater 92% -pulmonary consultation -repeat labs in a.m. Total time spent with patient discussing and formulating plan of care: 35 minutes. This medical document was created using an electronic medical record system with [employer] system. Although this document has been carefully reviewed, there may still be some phonetic and typographical errors. These areas are purely typographical due to imperfections of the software programs, and do not reflect any compromise in the patient's medical care. Plan discussed with: Patient, Other (RN) My Orders Orders - MATTHEW MAURER NP Procedure Category Date Status Time Metoprolol Tartrate PHA 07/02/24 In Process Tablet (Lopressor Ta 22:00 Docusate Sodium PHA 07/02/24 Verified Capsule (Colace 14:30 Docusate Sodium PHA 07/02/24 Verified Capsule (Colace 14:30 Date of Service: Jul 02, 2024 Billing Provider: MATTHEW MAURER NP Common Visit Codes: [id number] INP/OBS CARE(HIGH) MATTHEW MAURER NP Jul 02, 2024 14:33
[2024-07-02] MEDS: DOCUSATE SOD 100 MG CAP PO ONE (14:46)
--- NOTE | 2024-07-02 15:10 | DVHSR ---
APPROVED REPORT EXAM: Two-dimensional and M-mode echocardiogram with Doppler and color Doppler. Blood Pressure: 115/69 mmHg INDICATION Tachycardia ?endocarditis in setting of HIV RISK FACTORS Height: 5'6", Weight: 123 DIMENSIONS LVDd4.4 (3.8-5.7cm)LA (2D) (1.9-4.0cm)Aortic Root2.9 (2.0-3.7cm) LVDs3.0 (2.5-4.0cm)LA (MM) (1.9-4.0cm)Aortic Cusp Exc2.0 (1.5-2.0cm) EF (%) 60.0 (55-70%)Rt. Atrium (1.9-4.0cm)Asc. Aorta cm IVSd0.9 (0.7-1.1cm)RV (D) (1.8-2.4cm) PWd0.9 (0.7-1.1cm) Mitral Valve MitralMitral Stenosis E wave0.53m/sMV Mean GR.mmHg A wave0.51m/sMV Peak GR.mmHg E/A ratio1.02D MVAcm2 DECEL [id number] 1/2 Timems Aortic Valve Aortic ValveAortic Stenosis V10.79m/Renata Mean GR.2mmHg V20.94m/Renata Peak GR.4mmHg LVOT Diameter2.1 (1.8-2.4cm)Doppler AVA2.91cm2 Pulmonic Valve V21.08m/s LEFT VENTRICLE The left ventricle is of normal size. Wall thickness is normal. Ejection fraction is estimated at 6 0%. There is no gross wall motion abnormalities. Diastolic function appears to be preserved. RIGHT VENTRICLE The right ventricle is of normal size. Systolic function is normal. ATRIA Both atria are of normal size. Interatrial septum appears to be normal. MITRAL VALVE Normal structure and function. PULMONIC VALVE Likely normal. TRICUSPID VALVE Normal structure and function. PA systolic pressure isn't adequately estimated. AORTIC VALVE Normal structure and function. GREAT VESSELS The aortic root is of normal size. Proximal ascending aorta isn't visualized. PERICARDIAL EFFUSION No significant pericardial effusion. IVC is of normal size and collapses normally with inspiration. Other Information Quality : Rhythm : Tachycardia Technically limited study due to body habitus. Conclusion Normal left ventricular size and systolic function. Ejection fraction is estimated at 60%. Normal right ventricular size and systolic function. No hemodynamically significant valvular disease. PA systolic pressure is not adequately estimated. No pericardial effusion.
--- NOTE | 2024-07-02 17:20 | DVHPN2 ---
Progress Note Date Seen: Jul 02, 2024 Resident Creating Document: MING VALENTIN RESIDENT Has the PT tested + for MRSA If YES, has PT been informed?: Yes Medical Necessity Reason Pt with a Central, PICC or Fol: No Subjective Review of Systems 28-year-old homosexual male patient; who was recently diagnosed with HIV, not on treatment; who presented with cough to [facility] and was transferred to [facility] for further evaluation and treatment. He has a history of homosexual activity presents with suspected sepsis, acute hypoxic respiratory failure, and bilateral pneumonia, possibly due to atypical infections. They have a productive cough, fever, tachycardia, and decreased oxygen saturation. The patient is on IV antibiotics, oxygen therapy, and nebulizer treatments, with close monitoring and consultations from infectious disease, nephrology and pulmonology teams. Additional concerns include normocytic anemia, elevated liver enzymes, mild hyponatremia, and an elevated D- dimer, with a chest angiogram ordered to rule out DVT. Denies any prior EGD or colonoscopy, family history negative for any GI malignancy. Patient seen and examined at the bedside. Overnight had 4 episodes of watery emesis. Has not had bowel movement in 4 days. Objective vital signs Vital Sign Date Time Temp Pulse Resp B/P (MAP) Pulse Ox O2 Delivery O2 Flow Rate FiO2 07/02/24 13:00 98.1 119 19 112/70 (84) 100 98.1 07/02/24 07:55 Room Air* 0 21 Total Intake and Output 07/01/24 07/01/24 07/02/24 15:00 23:00 07:00 Intake Total 480 ml 200 ml Output Total 850 ml 780 ml Balance -370 ml -580 ml medications Current Medications Medications Dose Ordered Sig/Sean Route Start Time Stop Time Status Last Admin Dose Admin Guaifenesin/ Dextromethorphan 10 ml Q4HP PRN PO 06/08/24 11:00 06/26/24 09:32 10 ML Morphine Sulfate 1 mg Q4HPRN PRN IV 06/16/24 14:00 07/01/24 15:14 1 MG Ondansetron HCl 4 mg Q4HP PRN IV 06/21/24 16:00 07/02/24 00:49 4 MG Metoclopramide HCl 10 mg Q8HPRN PRN IV 06/21/24 16:00 07/02/24 04:23 10 MG Diphenhydramine HCl 25 mg Q6HP PRN PO 06/21/24 17:00 Furosemide 20 mg BIDD IV 06/25/24 10:45 06/27/24 17:31 20 MG Nystatin 5 ml QID MT 06/27/24 12:00 07/02/24 12:01 5 ML Carbamide Peroxide 5 drop Q12HR EACH EAR 06/27/24 10:00 07/02/24 10:42 5 DROP Pantoprazole Sodium 40 mg DAILY@0600 PO 06/29/24 06:00 07/02/24 05:42 40 MG Ursodiol 300 mg BID PO 06/28/24 22:00 07/02/24 10:42 300 MG Morphine Sulfate 2 mg Q4HPRN PRN IV 06/29/24 16:45 Hydrocortisone 1 applic BID TOP 06/29/24 22:00 07/02/24 10:42 1 APPLIC Urea 15 gm TID PO 06/30/24 14:00 07/01/24 22:23 15 GM Sodium Bicarbonate 650 mg TID PO 06/30/24 11:30 07/02/24 14:46 650 MG Potassium Bicarbonate 25 meq DAILY PO 07/02/24 10:00 07/02/24 10:40 25 MEQ Metoprolol Tartrate 25 mg BID PO 07/02/24 22:00 Docusate Sodium 200 mg DAILYPRN PRN PO 07/02/24 14:30 Examination Patient lying in bed, in no acute distress General: Well-built, afebrile, palor, mucosae are moist Cardiovascular: Regular S1 and S2. No murmurs, gallops or rubs. No JVD elevation. No pedal edema Respiratory: Normal B/L air entry on room air. Clear lung sounds on auscultation Abdomen: Soft, nontender, nondistended, normoactive bowel sounds, no rebound tenderness, no organomegaly, no masses Genitourinary: Deferred MSK/skin: Mobilizes 4 limbs. Skin is dry and warm Neurological: No motor, no sensitive deficits, normal speech. Pupils are isocoric and reactive. Psych/Mental Status: A/Ox4 laboratory and microbiology Laboratory Tests 07/02/24 09:52 Test 07/02/24 09:52 Range/Units Serum Glucose 109 H 74-106 mg/dL Microbiology Date/Time Source Procedure Growth Status 06/29/24 06:30 Sputum AFB Broth Culture Pending Resulted 06/29/24 06:30 Sputum - Final Resulted 06/29/24 06:30 Sputum - Final Resulted 06/29/24 06:30 Sputum Acid Fast Bacilli Culture Pending Resulted 06/21/24 18:18 Blood Blood Culture - Final NO GROWTH AFTER 5 DAYS OF INCUBATION. Complete 06/21/24 14:30 Nose MRSA Screen - Final Complete Labs and/or images reviewed: Labs reviewed by me, Image(s) reviewed by me Problem List/Assessment/Plan Problem List/Assessment/Plan Transaminitis, negative hepatitis panel, MRCP negative Pancytopenia secondary to HIV Aids - CD 4 < 10 high risk for opportunistic infection Possible CMV / EBV hepatitis Atypical pneumonia History of SIADH Right lower lobe 2 cm nodule in lungs Left adrenal nodule Hyponatremia Plan: Continue supportive care ID consult appreciated Pantoprazole 40 mg daily LFTs trending down Patient will be started on to Biktarvy as an outpatient Avoid NSAIDs Case discussed with Dr. Robins Plan discussed with: Patient Dietary Evaluation Review Comments: Encourage and monitor PO intake to meet 75% of his needs Expected Outcomes/Goals: free from symptoms, gradual weight gain. MING VALENTIN RESIDENT Jul 02, 2024 17:20
--- NOTE | 2024-07-02 18:19 | DVHPN2 ---
Progress Note - Dictate Date Seen: Jul 02, 2024 Has the PT tested + for MRSA If YES, has PT been informed?: Yes Medical Necessity Reason Pt with a Central, PICC or Fol: No Subjective No new acute complaints noted at this time. vital signs Vital Sign Date Time Temp Pulse Resp B/P (MAP) Pulse Ox O2 Delivery O2 Flow Rate FiO2 07/02/24 17:00 98.1 116 20 113/73 (86) 99 98.1 07/02/24 07:55 Room Air* 0 21 Total Intake and Output 07/01/24 07/01/24 07/02/24 15:00 23:00 07:00 Intake Total 480 ml 200 ml Output Total 850 ml 780 ml Balance -370 ml -580 ml medications Current Medications Medications Dose Ordered Sig/Sean Route Start Time Stop Time Status Last Admin Dose Admin Guaifenesin/ Dextromethorphan 10 ml Q4HP PRN PO 06/08/24 11:00 06/26/24 09:32 10 ML Morphine Sulfate 1 mg Q4HPRN PRN IV 06/16/24 14:00 07/01/24 15:14 1 MG Ondansetron HCl 4 mg Q4HP PRN IV 06/21/24 16:00 07/02/24 00:49 4 MG Metoclopramide HCl 10 mg Q8HPRN PRN IV 06/21/24 16:00 07/02/24 04:23 10 MG Diphenhydramine HCl 25 mg Q6HP PRN PO 06/21/24 17:00 Furosemide 20 mg BIDD IV 06/25/24 10:45 06/27/24 17:31 20 MG Nystatin 5 ml QID MT 06/27/24 12:00 07/02/24 12:01 5 ML Carbamide Peroxide 5 drop Q12HR EACH EAR 06/27/24 10:00 07/02/24 10:42 5 DROP Pantoprazole Sodium 40 mg DAILY@0600 PO 06/29/24 06:00 07/02/24 05:42 40 MG Ursodiol 300 mg BID PO 06/28/24 22:00 07/02/24 10:42 300 MG Morphine Sulfate 2 mg Q4HPRN PRN IV 06/29/24 16:45 Hydrocortisone 1 applic BID TOP 06/29/24 22:00 07/02/24 10:42 1 APPLIC Urea 15 gm TID PO 06/30/24 14:00 07/01/24 22:23 15 GM Sodium Bicarbonate 650 mg TID PO 06/30/24 11:30 07/02/24 14:46 650 MG Potassium Bicarbonate 25 meq DAILY PO 07/02/24 10:00 07/02/24 10:40 25 MEQ Metoprolol Tartrate 25 mg BID PO 07/02/24 22:00 Docusate Sodium 200 mg DAILYPRN PRN PO 07/02/24 14:30 objective General Appearance: Alert, Oriented X3, Cooperative, No acute distress HEENT: Atraumatic Respiratory: Other (Scattered crackles; good air entry bilateral) Cardiovascular: Regular rate, Normal S1, Normal S2 Abdominal: Normal bowel sounds, Soft, No tenderness Neuro: Normal gait, Normal speech, Strength at 5/5 X4 ext, Normal tone, Sensation intact, Cranial nerves 3-12 NL, Reflexes 2+ Psych/Mental Status: Mental status NL, Mood NL laboratory and microbiology Laboratory Tests 07/02/24 09:52 Test 07/02/24 09:52 Range/Units Serum Glucose 109 H 74-106 mg/dL Assessment/Plan Patient is a 28-year-old male with elevated liver enzymes elevated bilirubin # hyponatremia SIADH AIDS Pneumocystis Jerovoci or Carini Pneumonia ( opportunistic infection) multifocal pneumonia: atypical in nature Possible PCP pneumonia pulmonary nodule Homosexual elevated LFT anemia Immunosuppressed Recommendations: 07/02, Patient's AST is 71 and ALT is 196 Liver enzymes and WBC trending down. send g6pd test for alternative rx option for PCP Pneumonia Urine opiates screen is positive Dc Bactrim ? drug induced but too high GI on board monitor LFTS MRCP unremarkable for biliary dilation stop date of bactrim was 07/04/2024,and plan was to switch to prophylaxis dose severe hyponatremia, nephrology on board 06/25, Sputum culture [AFB] pending 06/28, AFB Smear pending , AFB Smear pending AFB stain is negative x1 neg follow Quantiferon gold, indeterminate AFB screen x 3 pending; infection control HIV-1 RNA [PCR]: [id number]: needs ART therapy will start as outpt BAL sample to be sent for bacterial, fungal, AFB and viral cultures. follow 06/17/2024 : Chest x-ray showed Bilateral opacities which may reflect multifocal pneumonia. Prognosis guarded Thank you for consult Dietary Evaluation Review Comments: Encourage and monitor PO intake to meet 75% of his needs Expected Outcomes/Goals: free from symptoms, gradual weight gain. Plan discussed with: Other HOMERO VIGIL MD Jul 02, 2024 18:19
[2024-07-02] MEDS: METOPROLOL TARTRATE 25 MG TAB PO SCH (21:16)
--- NOTE | 2024-07-02 23:28 | DVHPN2 ---
Progress Note - Dictate Date Seen: Jul 02, 2024 Has the PT tested + for MRSA If YES, has PT been informed?: Yes Medical Necessity Reason Pt with a Central, PICC or Fol: No Subjective Patient seen and examined at bedside. On room air Overnight events reviewed. vital signs Vital Sign Date Time Temp Pulse Resp B/P (MAP) Pulse Ox O2 Delivery O2 Flow Rate FiO2 07/02/24 21:16 125 120/73 07/02/24 21:00 98.2 18 99 98.2 07/02/24 20:00 Room Air* 0 21 Total Intake and Output 07/01/24 07/01/24 07/02/24 15:00 23:00 07:00 Intake Total 480 ml 200 ml Output Total 850 ml 780 ml Balance -370 ml -580 ml medications Current Medications Medications Dose Ordered Sig/Sean Route Start Time Stop Time Status Last Admin Dose Admin Guaifenesin/ Dextromethorphan 10 ml Q4HP PRN PO 06/08/24 11:00 06/26/24 09:32 10 ML Morphine Sulfate 1 mg Q4HPRN PRN IV 06/16/24 14:00 07/01/24 15:14 1 MG Ondansetron HCl 4 mg Q4HP PRN IV 06/21/24 16:00 07/02/24 00:49 4 MG Metoclopramide HCl 10 mg Q8HPRN PRN IV 06/21/24 16:00 07/02/24 04:23 10 MG Diphenhydramine HCl 25 mg Q6HP PRN PO 06/21/24 17:00 Furosemide 20 mg BIDD IV 06/25/24 10:45 06/27/24 17:31 20 MG Nystatin 5 ml QID MT 06/27/24 12:00 07/02/24 21:17 5 ML Carbamide Peroxide 5 drop Q12HR EACH EAR 06/27/24 10:00 07/02/24 21:17 5 DROP Pantoprazole Sodium 40 mg DAILY@0600 PO 06/29/24 06:00 07/02/24 05:42 40 MG Ursodiol 300 mg BID PO 06/28/24 22:00 07/02/24 21:15 300 MG Morphine Sulfate 2 mg Q4HPRN PRN IV 06/29/24 16:45 Hydrocortisone 1 applic BID TOP 06/29/24 22:00 07/02/24 21:17 1 APPLIC Urea 15 gm TID PO 06/30/24 14:00 07/01/24 22:23 15 GM Sodium Bicarbonate 650 mg TID PO 06/30/24 11:30 07/02/24 21:16 650 MG Potassium Bicarbonate 25 meq DAILY PO 07/02/24 10:00 07/02/24 10:40 25 MEQ Metoprolol Tartrate 25 mg BID PO 07/02/24 22:00 07/02/24 21:16 25 MG Docusate Sodium 200 mg DAILYPRN PRN PO 07/02/24 14:30 objective Gen.: Patient lying in bed in no apparent distress. On room air Head: Normocephalic, atraumatic. Eyes: EOMI/PERRLA. Ears: Normal hearing. Normal anatomy. Neck/trachea: Trachea midline, supple. Nose: Normal external anatomy. Mouth: Moist mucous membranes. Chest: Decreased air entry bilaterally. No wheezing or rhonchi. Cardiovascular: Positive S1, positive S2. Regular rate and rhythm. Abdomen: Positive bowel sounds in all 4 quadrants. Soft, non-tender, non- distended. : Deferred. Rectal: Deferred. Skin: Warm, dry. Intact. Extremities: 2+ radial pulses bilaterally. No lower extremity edema. Neuro: Awake, alert, oriented x3. No gross motor or sensory deficits. Cranial nerves II through XII intact. Gait not assessed. laboratory and microbiology Laboratory Tests 07/02/24 09:52 Test 07/02/24 09:52 Range/Units Serum Glucose 109 H 74-106 mg/dL Assessment/Plan Impression: Cough HIV (recent diagnosis) Anemia Elevated LFTs Atypical pneumonia SIADH Events: Remains on room air Supplemental oxygen PRN Nystatin suspension Sodium bicarb tabs Continue ursodiol AFB smears negative x3. TB negative ID recommendations appreciated. Monitor WBC. Antiemetics PRN. GI recs appreciated. Check stool for bacteria, ova and parasites. Incentive spirometry Lasix on hold Monitor renal function Monitor electrolytes - supplement as necessary Monitor sodium d/t hyponatremia Nephrology recommendations appreciated On Ure-Na started by Nephrology - pt refused medication DVT prophylaxis w/ Lovenox Patient is stable for discharge from the pulmonary standpoint Disposition per hospitalist Labs reviewed. Rest of plan as noted below Plan: On room air Supplemental oxygen PRN Titrate to keep O2 sats above 92%. 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 Monitor electrolytes. Supplement as necessary. Monitor ins and outs. DVT prophylaxis. Prognosis: Poor given patient's multiple co-morbidities. Rest of plan per hospitalist and other consultants. Thank you Dr. Cruz, for allowing me to participate in this patient's care. Further recommendations will depend on the patient's clinical course. Please do not hesitate to contact me if you have any questions or concerns. This medical document was created using an electronic medical record system with [employer] dictation system. Although these documentations are being carefully reviewed, there may still be some phonetic and typographical changes. The errors are purely typographical, due to imperfection on the software program, and do not reflect any compromise in the patient's medical care. Dietary Evaluation Review Comments: Encourage and monitor PO intake to meet 75% of his needs Expected Outcomes/Goals: free from symptoms, gradual weight gain. Plan discussed with: Patient, Other (AALIYAH Fontana) ANGELIC OTOOLE MD Jul 02, 2024 23:28
[2024-07-03] VITALS (9 sets, daily range): BP systolic 107–121; BP diastolic 59–77; PULSE 108–122; RESP 16–20; TEMP 97.4–100.1; O2SAT 98–100
[2024-07-03 06:59] LABS: Anion Gap 10 (5-15); Carbon Dioxide 23 mmol/L (20-31)
[2024-07-03 07:00] LABS: Calcium 8.9 mg/dL (8.7-10.4); Chloride 87 mmol/L (98-107); Potassium 3.2 mmol/L (3.5-5.1); Sodium 120 mmol/L (136-145)
[2024-07-03 07:10] LABS: Blood Urea Nitrogen 9 mg/dL (9-23); Glucose 117 mg/dL (74-106)
[2024-07-03 07:54] LABS: BUN/Creatinine Ratio 22.5 (10.0-20.0)
--- NOTE | 2024-07-03 10:09 | DVHPN2 ---
Progress Note Date Seen: Jul 03, 2024 Has the PT tested + for MRSA If YES, has PT been informed?: Yes Medical Necessity Reason Pt with a Central, PICC or Fol: No Subjective Patient reports: No new complaints Objective vital signs Vital Sign Date Time Temp Pulse Resp B/P (MAP) Pulse Ox O2 Delivery O2 Flow Rate FiO2 07/03/24 09:00 98.3 113 20 121/77 (92) 98 98.3 07/02/24 20:00 Room Air* 0 21 Total Intake and Output 07/02/24 07/02/24 07/03/24 15:00 23:00 07:00 Intake Total 520 ml 600 ml Output Total 500 ml 1 ml Balance 20 ml 599 ml medications Current Medications Medications Dose Ordered Sig/Sean Route Start Time Stop Time Status Last Admin Dose Admin Guaifenesin/ Dextromethorphan 10 ml Q4HP PRN PO 06/08/24 11:00 06/26/24 09:32 10 ML Morphine Sulfate 1 mg Q4HPRN PRN IV 06/16/24 14:00 07/01/24 15:14 1 MG Ondansetron HCl 4 mg Q4HP PRN IV 06/21/24 16:00 07/02/24 00:49 4 MG Metoclopramide HCl 10 mg Q8HPRN PRN IV 06/21/24 16:00 07/02/24 04:23 10 MG Diphenhydramine HCl 25 mg Q6HP PRN PO 06/21/24 17:00 Furosemide 20 mg BIDD IV 06/25/24 10:45 06/27/24 17:31 20 MG Nystatin 5 ml QID MT 06/27/24 12:00 07/03/24 05:29 5 ML Carbamide Peroxide 5 drop Q12HR EACH EAR 06/27/24 10:00 07/02/24 21:17 5 DROP Pantoprazole Sodium 40 mg DAILY@0600 PO 06/29/24 06:00 07/03/24 05:29 40 MG Ursodiol 300 mg BID PO 06/28/24 22:00 07/02/24 21:15 300 MG Morphine Sulfate 2 mg Q4HPRN PRN IV 06/29/24 16:45 Hydrocortisone 1 applic BID TOP 06/29/24 22:00 07/02/24 21:17 1 APPLIC Urea 15 gm TID PO 06/30/24 14:00 07/01/24 22:23 15 GM Sodium Bicarbonate 650 mg TID PO 06/30/24 11:30 07/03/24 05:29 650 MG Potassium Bicarbonate 25 meq DAILY PO 07/02/24 10:00 07/02/24 10:40 25 MEQ Metoprolol Tartrate 25 mg BID PO 07/02/24 22:00 07/02/24 21:16 25 MG Docusate Sodium 200 mg DAILYPRN PRN PO 07/02/24 14:30 Examination: GENERAL:Abnormal laboratory and microbiology Laboratory Tests 07/03/24 06:10 07/02/24 09:52 Test 07/03/24 06:10 Range/Units Serum Glucose 117 H 74-106 mg/dL Microbiology Date/Time Source Procedure Growth Status 07/02/24 20:23 Stool Stool Culture - Preliminary Resulted 07/02/24 20:23 Stool Shiga Toxin I & II Pending Resulted 06/29/24 06:30 Sputum AFB Broth Culture Pending Resulted 06/29/24 06:30 Sputum - Final Resulted 06/29/24 06:30 Sputum - Final Resulted 06/29/24 06:30 Sputum Acid Fast Bacilli Culture Pending Resulted 06/21/24 18:18 Blood Blood Culture - Final NO GROWTH AFTER 5 DAYS OF INCUBATION. Complete 06/21/24 14:30 Nose MRSA Screen - Final Complete Problem List/Assessment/Plan Problem List/Assessment/Plan hyponatremia likely secondary to SIADH aggravated by IV hypotonic solution Syndrome of inappropriate antidiuretic hormone secretion AIDS Jaundice Transaminitis PCP on bactrim IV now switched to p.o. PNA leukopenia r/o TB Na dropped to 120 yesterday obtain urin osm today 3% NACL today, repeat na level today in 3 hours Kidney function remained within normal limit Avoid rapid correction of Na Furosemide 20 mg IV b.i.d. Fluid restriction Urea-sodium 15 g p.o. t.i.d. Sodium bicarb 650 mg p.o. t.i.d. KCL replacement ID consult Plan discussed with: Patient Dietary Evaluation Review Comments: Encourage and monitor PO intake to meet 75% of his needs Expected Outcomes/Goals: free from symptoms, gradual weight gain. BELL BLANK MD Jul 03, 2024 10:09
[2024-07-03] MEDS: SODIUM CHL 3% 150 ML IV ONE (11:20)
[2024-07-03 12:08] LABS: Albumin 3.6 g/dL (3.2-4.8); Total Protein 6.8 g/dL (5.7-8.2)
[2024-07-03 12:17] LABS: Bilirubin, Direct 7.1 mg/dL (<0.3)
--- NOTE | 2024-07-03 13:53 | DVHPN2 ---
Subjective Patient reports not feeling well today. Reports having poor appetite, constipation. Reviewed: Care Plan, H&P, Labs, Medications, Previous Orders, Radiology, Other (Consultations) Changes from previous H/P or p: No Changes General: No Night Sweats, No Fatigue Neurological: No Weakness, No Numbness Cardiovascular: No Chest Pain Respiratory: Cough, Shortness of breath Gastrointestinal: No Nausea Musculoskeletal: No leg pain Endocrine: No Cold Intolerance Hematology: No Abnormal Bleeding Objective Vitals Vital Signs Date Time Temp Pulse Resp B/P (MAP) Pulse Ox O2 Delivery O2 Flow Rate FiO2 07/03/24 11:18 113 121/77 07/03/24 09:00 98.3 20 98 98.3 07/03/24 08:00 Room Air* 0 21 Intake/Output Intake and Output 07/03/24 07:00 Intake Total 1120 ml Output Total 501 ml Balance 619 ml Intake Oral 1120 ml Output Urine Total 500 ml Stool Total 1 ml Urine/Stool Mix 0 ml # Voids 3 # Bowel Movements 2 General Appearance: Alert, Oriented X3, Cooperative, moderate distress HEENT: Atraumatic, PERRLA Lungs: Other Cardiovascular: Regular rate, Normal S1, Normal S2, No murmurs Abdomen: Normal bowel sounds, Soft, No tenderness, No hepatospenomegaly Genitourinary: No Apparent Abnormalities Extremities: No edema Neuro: Normal speech, Sensation intact Skin: Dry, Intact Psych/Mental Status: Mental status NL, Mood NL Medications Current Medications Medications Dose Ordered Sig/Sean Route Start Time Stop Time Status Last Admin Dose Admin Guaifenesin/ Dextromethorphan 10 ml Q4HP PRN PO 06/08/24 11:00 06/26/24 09:32 10 ML Morphine Sulfate 1 mg Q4HPRN PRN IV 06/16/24 14:00 07/01/24 15:14 1 MG Ondansetron HCl 4 mg Q4HP PRN IV 06/21/24 16:00 07/02/24 00:49 4 MG Metoclopramide HCl 10 mg Q8HPRN PRN IV 06/21/24 16:00 07/02/24 04:23 10 MG Diphenhydramine HCl 25 mg Q6HP PRN PO 06/21/24 17:00 Furosemide 20 mg BIDD IV 06/25/24 10:45 06/27/24 17:31 20 MG Nystatin 5 ml QID MT 06/27/24 12:00 07/03/24 11:19 5 ML Carbamide Peroxide 5 drop Q12HR EACH EAR 06/27/24 10:00 07/03/24 11:18 5 DROP Pantoprazole Sodium 40 mg DAILY@0600 PO 06/29/24 06:00 07/03/24 05:29 40 MG Ursodiol 300 mg BID PO 06/28/24 22:00 07/03/24 11:21 300 MG Morphine Sulfate 2 mg Q4HPRN PRN IV 06/29/24 16:45 Hydrocortisone 1 applic BID TOP 06/29/24 22:00 07/03/24 11:18 1 APPLIC Urea 15 gm TID PO 06/30/24 14:00 07/01/24 22:23 15 GM Sodium Bicarbonate 650 mg TID PO 06/30/24 11:30 07/03/24 05:29 650 MG Potassium Bicarbonate 25 meq DAILY PO 07/02/24 10:00 07/03/24 11:19 25 MEQ Metoprolol Tartrate 25 mg BID PO 07/02/24 22:00 07/03/24 11:18 25 MG Docusate Sodium 200 mg DAILYPRN PRN PO 07/02/24 14:30 Laboratory Results Laboratory Tests 07/02/24 09:52 Chemistry Test 07/03/24 06:10 07/03/24 13:25 Albumin 3.6 g/dL (3.2-4.8) Calcium Level 8.9 mg/dL (8.7-10.4) Pending Total Protein 6.8 g/dL (5.7-8.2) LFT Test 07/03/24 06:10 Alanine Aminotransferase (ALT) 157 U/L (7-40) H Alkaline Phosphatase 733 U/L (46-116) H Aspartate Amino Transferase (AST) 61 U/L (13-40) H Direct Bilirubin 7.1 mg/dL (<0.3) H Total Bilirubin 9.0 mg/dL (0.2-1.0) H Urinalysis Test 06/12/24 20:52 06/19/24 10:30 06/23/24 09:13 06/26/24 16:32 Urine Mucus Few (None Seen) Urine Sodium 76 mmol/L (40-220) Urine Color Yellow (Yellow) Urine Clarity Clear (Clear) Urine pH 6.5 (5.0-9.0) Urine Specific [place] 1.013 (1.001-1.035) Urine Protein Trace (Negative) H Urine Ketones Negative (Negative) Urine Blood Trace /uL (Negative) H Urine Nitrite Negative (Negative) Urine Bilirubin 1+ (Negative) Urine Urobilinogen 6 mg/dL (Negative) Urine Leukocyte Esterase Negative /uL (Negative) Urine RBC <1 /hpf (0 - 3) Urine WBC 1 /hpf (0 - 3) Urine Squamous Epithelial Cells None seen /hpf (<5) Urine Bacteria None seen /hpf (None Seen) Urine Glucose Normal mg/dL (Normal) Urine Osmolality 752 mOsm/kg Microbiology Microbiology Date/Time Source Procedure Growth Status 07/02/24 20:23 Stool Stool Culture - Preliminary Resulted 07/02/24 20:23 Stool Shiga Toxin I & II Pending Resulted 06/29/24 06:30 Sputum AFB Broth Culture Pending Resulted 06/29/24 06:30 Sputum - Final Resulted 06/29/24 06:30 Sputum - Final Resulted 06/29/24 06:30 Sputum Acid Fast Bacilli Culture Pending Resulted 06/21/24 18:18 Blood Blood Culture - Final NO GROWTH AFTER 5 DAYS OF INCUBATION. Complete 06/21/24 14:30 Nose MRSA Screen - Final Complete Labs and/or images reviewed: Labs reviewed by me, Image(s) reviewed by me Assessment/Plan Assessment/Plan Impression: -acute hypoxic respiratory failure -multifocal pneumonia, probable P [place] -rule out tuberculosis -scoliosis -HIV/AIDS : New diagnosis -hyponatremia -SIADH -rhabdomyolysis from rigors and tremors -? Oral Jennie Plan: Events: Heart rate improving. He was disclosed to me today, the patient has been refusing p.o. Lasix as well as p.o. sodium tablets. Patient was now on 3% saline per Nephrology. -echocardiogram: Unremarkable -further recommendations from Infectious Disease recommended -antiemetics -nephrology consultation: Appreciate recommendations for persistent hyponatremia -free water restriction, continue sodium tablets -pain management: [place] -O2 supplementation to keep saturation greater 92% -pulmonary consultation -repeat labs in a.m. Total time spent with patient discussing and formulating plan of care: 35 minutes. This medical document was created using an electronic medical record system with Dragon computerized dictation system. Although this document has been carefully reviewed, there may still be some phonetic and typographical errors. These areas are purely typographical due to imperfections of the software programs, and do not reflect any compromise in the patient's medical care. Plan discussed with: Patient, Other (RN) My Orders Orders - MATTHEW MAURER NP Procedure Category Date Status Time Docusate Sodium PHA 07/02/24 In Process Capsule (Colace 14:30 Date of Service: Jul 03, 2024 Billing Provider: MATTHEW MAURER NP Common Visit Codes: [id number] INP/OBS CARE(HIGH) MATTHEW MAURER NP Jul 03, 2024 13:53
[2024-07-03 13:56] LABS: Potassium 3.8 mmol/L (3.5-5.1)
[2024-07-03 13:57] LABS: Anion Gap 8 (5-15); Calcium 8.8 mg/dL (8.7-10.4); Carbon Dioxide 21 mmol/L (20-31)
[2024-07-03 14:02] LABS: BUN/Creatinine Ratio 18.2 (10.0-20.0)
[2024-07-03 14:10] LABS: Blood Urea Nitrogen 8 mg/dL (9-23); Chloride 91 mmol/L (98-107); Glucose 107 mg/dL (74-106); Sodium 120 mmol/L (136-145)
--- NOTE | 2024-07-03 17:50 | DVHPN2 ---
Progress Note Date Seen: Jul 03, 2024 Resident Creating Document: MING VALENTIN RESIDENT Has the PT tested + for MRSA If YES, has PT been informed?: Yes Medical Necessity Reason Pt with a Central, PICC or Fol: No Subjective Review of Systems 28-year-old homosexual male patient; who was recently diagnosed with HIV, not on treatment; who presented with cough to [facility] and was transferred to [facility] for further evaluation and treatment. He has a history of homosexual activity presents with suspected sepsis, acute hypoxic respiratory failure, and bilateral pneumonia, possibly due to atypical infections. They have a productive cough, fever, tachycardia, and decreased oxygen saturation. The patient is on IV antibiotics, oxygen therapy, and nebulizer treatments, with close monitoring and consultations from infectious disease, nephrology and pulmonology teams. Additional concerns include normocytic anemia, elevated liver enzymes, mild hyponatremia, and an elevated D- dimer, with a chest angiogram ordered to rule out DVT. Denies any prior EGD or colonoscopy, family history negative for any GI malignancy. Patient seen and examined at the bedside. Overnight had 2 bowel movements, which had blood in it. Reports generalized weakness. Lymph stool culture shows Gram-positive summer. No enteric normal summer. Objective vital signs Vital Sign Date Time Temp Pulse Resp B/P (MAP) Pulse Ox O2 Delivery O2 Flow Rate FiO2 07/03/24 17:22 113/72 07/03/24 13:00 98.3 117 20 98 98.3 07/03/24 08:00 Room Air* 0 21 Total Intake and Output 07/02/24 07/02/24 07/03/24 15:00 23:00 07:00 Intake Total 520 ml 600 ml Output Total 500 ml 1 ml Balance 20 ml 599 ml medications Current Medications Medications Dose Ordered Sig/Sean Route Start Time Stop Time Status Last Admin Dose Admin Guaifenesin/ Dextromethorphan 10 ml Q4HP PRN PO 06/08/24 11:00 06/26/24 09:32 10 ML Morphine Sulfate 1 mg Q4HPRN PRN IV 06/16/24 14:00 07/01/24 15:14 1 MG Ondansetron HCl 4 mg Q4HP PRN IV 06/21/24 16:00 07/02/24 00:49 4 MG Metoclopramide HCl 10 mg Q8HPRN PRN IV 06/21/24 16:00 07/02/24 04:23 10 MG Diphenhydramine HCl 25 mg Q6HP PRN PO 06/21/24 17:00 Furosemide 20 mg BIDD IV 06/25/24 10:45 07/03/24 17:22 20 MG Nystatin 5 ml QID MT 06/27/24 12:00 07/03/24 17:24 5 ML Carbamide Peroxide 5 drop Q12HR EACH EAR 06/27/24 10:00 07/03/24 11:18 5 DROP Pantoprazole Sodium 40 mg DAILY@0600 PO 06/29/24 06:00 07/03/24 05:29 40 MG Ursodiol 300 mg BID PO 06/28/24 22:00 07/03/24 11:21 300 MG Morphine Sulfate 2 mg Q4HPRN PRN IV 06/29/24 16:45 Hydrocortisone 1 applic BID TOP 06/29/24 22:00 07/03/24 11:18 1 APPLIC Urea 15 gm TID PO 06/30/24 14:00 07/01/24 22:23 15 GM Sodium Bicarbonate 650 mg TID PO 06/30/24 11:30 07/03/24 15:07 650 MG Potassium Bicarbonate 25 meq DAILY PO 07/02/24 10:00 07/03/24 11:19 25 MEQ Metoprolol Tartrate 25 mg BID PO 07/02/24 22:00 07/03/24 11:18 25 MG Docusate Sodium 200 mg DAILYPRN PRN PO 07/02/24 14:30 Artificial Tears 1 drop Q6HP PRN EACHEYE 07/03/24 14:00 Examination Patient lying in bed, in no acute distress General: Well-built, afebrile, palor, mucosae are moist Cardiovascular: Regular S1 and S2. No murmurs, gallops or rubs. No JVD elevation. No pedal edema Respiratory: Normal B/L air entry on room air. Clear lung sounds on auscultation Abdomen: Soft, nontender, nondistended, normoactive bowel sounds, no rebound tenderness, no organomegaly, no masses Genitourinary: Deferred MSK/skin: Mobilizes 4 limbs. Skin is dry and warm Neurological: No motor, no sensitive deficits, normal speech. Pupils are isocoric and reactive. Psych/Mental Status: A/Ox4 laboratory and microbiology Laboratory Tests 07/03/24 13:25 07/02/24 09:52 Test 07/03/24 13:25 Range/Units Serum Glucose 107 H 74-106 mg/dL Microbiology Date/Time Source Procedure Growth Status 07/02/24 20:23 Stool Stool Culture - Preliminary Resulted 07/02/24 20:23 Stool Shiga Toxin I & II - Final Resulted 06/29/24 06:30 Sputum AFB Broth Culture Pending Resulted 06/29/24 06:30 Sputum - Final Resulted 06/29/24 06:30 Sputum - Final Resulted 06/29/24 06:30 Sputum Acid Fast Bacilli Culture Pending Resulted 06/21/24 18:18 Blood Blood Culture - Final NO GROWTH AFTER 5 DAYS OF INCUBATION. 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 no filling defects. Plan: Follow up with stool ova and parasites. Consider stool studies for Cryptosporidium and isospora Continue supportive care ID consult appreciated Pantoprazole 40 mg daily LFTs trending down Patient will be started on to Biktarvy as an outpatient Avoid NSAIDs Plan discussed with patient in which all questions have been answered Case discussed with Dr. Robins Plan discussed with: Patient Dietary Evaluation Review Comments: Encourage and monitor PO intake to meet 75% of his needs Expected Outcomes/Goals: free from symptoms, gradual weight gain. MING VALENTIN RESIDENT Jul 03, 2024 17:50
--- NOTE | 2024-07-03 18:48 | DVHPN2 ---
Progress Note - Dictate Date Seen: Jul 03, 2024 Has the PT tested + for MRSA If YES, has PT been informed?: Yes Medical Necessity Reason Pt with a Central, PICC or Fol: No Subjective Patient reports generalized weakness. He reports that he has poor appetite. Stool culture shows Gram-positive summer. No enteric normal summer. vital signs Vital Sign Date Time Temp Pulse Resp B/P (MAP) Pulse Ox O2 Delivery O2 Flow Rate FiO2 07/03/24 17:41 113/72 07/03/24 17:00 98.1 122 20 100 98.1 07/03/24 08:00 Room Air* 0 21 Total Intake and Output 07/02/24 07/02/24 07/03/24 15:00 23:00 07:00 Intake Total 520 ml 600 ml Output Total 500 ml 1 ml Balance 20 ml 599 ml medications Current Medications Medications Dose Ordered Sig/Sean Route Start Time Stop Time Status Last Admin Dose Admin Guaifenesin/ Dextromethorphan 10 ml Q4HP PRN PO 06/08/24 11:00 06/26/24 09:32 10 ML Morphine Sulfate 1 mg Q4HPRN PRN IV 06/16/24 14:00 07/01/24 15:14 1 MG Ondansetron HCl 4 mg Q4HP PRN IV 06/21/24 16:00 07/02/24 00:49 4 MG Metoclopramide HCl 10 mg Q8HPRN PRN IV 06/21/24 16:00 07/02/24 04:23 10 MG Diphenhydramine HCl 25 mg Q6HP PRN PO 06/21/24 17:00 Furosemide 20 mg BIDD IV 06/25/24 10:45 06/27/24 17:31 20 MG Nystatin 5 ml QID MT 06/27/24 12:00 07/03/24 17:24 5 ML Carbamide Peroxide 5 drop Q12HR EACH EAR 06/27/24 10:00 07/03/24 11:18 5 DROP Pantoprazole Sodium 40 mg DAILY@0600 PO 06/29/24 06:00 07/03/24 05:29 40 MG Ursodiol 300 mg BID PO 06/28/24 22:00 07/03/24 11:21 300 MG Morphine Sulfate 2 mg Q4HPRN PRN IV 06/29/24 16:45 Hydrocortisone 1 applic BID TOP 06/29/24 22:00 07/03/24 11:18 1 APPLIC Urea 15 gm TID PO 06/30/24 14:00 07/01/24 22:23 15 GM Sodium Bicarbonate 650 mg TID PO 06/30/24 11:30 07/03/24 15:07 650 MG Potassium Bicarbonate 25 meq DAILY PO 07/02/24 10:00 07/03/24 11:19 25 MEQ Metoprolol Tartrate 25 mg BID PO 07/02/24 22:00 07/03/24 11:18 25 MG Docusate Sodium 200 mg DAILYPRN PRN PO 07/02/24 14:30 Artificial Tears 1 drop Q6HP PRN EACHEYE 07/03/24 14:00 objective General Appearance: Alert, Oriented X3, Cooperative, No acute distress HEENT: Atraumatic Respiratory: Other (Scattered crackles; good air entry bilateral) Cardiovascular: Regular rate, Normal S1, Normal S2 Abdominal: Normal bowel sounds, Soft, No tenderness Neuro: Normal gait, Normal speech, Strength at 5/5 X4 ext, Normal tone, Sensation intact, Cranial nerves 3-12 NL, Reflexes 2+ Psych/Mental Status: Mental status NL, Mood NL laboratory and microbiology Laboratory Tests 07/03/24 13:25 07/02/24 09:52 Test 07/03/24 13:25 Range/Units Serum Glucose 107 H 74-106 mg/dL Assessment/Plan Patient is a 28-year-old male with elevated liver enzymes elevated bilirubin # hyponatremia SIADH AIDS Pneumocystis Jerovoci or Carini Pneumonia ( opportunistic infection) multifocal pneumonia: atypical in nature Possible PCP pneumonia pulmonary nodule Homosexual elevated LFT anemia Immunosuppressed Recommendations: Liver enzymes and WBC trending down. send g6pd test for alternative rx option for PCP Pneumonia 07/02, Stool culture Preliminary showed: Many growth: Gram Positive Summer. No Normal Enteric Summer. No Campylobacter antigen detected Shiga Toxin 1: Negative Shiga Toxin 2: Negative Urine opiates screen is positive Dc Bactrim ? drug induced but too high GI consulted monitor LFTS MRCP unremarkable for biliary dilation stop date of bactrim was 07/04/2024,and plan was to switch to prophylaxis dose severe hyponatremia, nephrology on board The patient has been refusing p.o. Lasix as well as p.o. sodium tablets. Patient was now on 3% saline per Nephrology. 06/25, Sputum culture pending 06/28, AFB Smear is pending 06/29, AFB Smear is pending AFB stain is negative x1 neg follow Quantiferon gold, indeterminate AFB screen x 3 pending; infection control HIV-1 RNA [PCR]: [id number]: needs ART therapy will start as outpt BAL sample to be sent for bacterial, fungal, AFB and viral cultures. follow 06/17/2024 : Chest x-ray showed Bilateral opacities which may reflect multifocal pneumonia. Prognosis guarded Thank you for consult Dietary Evaluation Review Comments: Encourage and monitor PO intake to meet 75% of his needs Expected Outcomes/Goals: free from symptoms, gradual weight gain. Plan discussed with: HOMERO Gray MD Jul 03, 2024 18:48
[2024-07-03] MEDS: ARTIFICIAL TEARS 15ml EACHEYE PRN (21:53)
--- NOTE | 2024-07-03 22:43 | DVHPN2 ---
Progress Note - Dictate Date Seen: Jul 03, 2024 Has the PT tested + for MRSA If YES, has PT been informed?: Yes Medical Necessity Reason Pt with a Central, PICC or Fol: No Subjective Patient seen and examined at bedside. On room air Overnight events reviewed. vital signs Vital Sign Date Time Temp Pulse Resp B/P (MAP) Pulse Ox O2 Delivery O2 Flow Rate FiO2 07/03/24 21:45 120 119/68 07/03/24 21:00 100.1 20 98 100.1 07/03/24 19:30 Room Air* 0 21 Total Intake and Output 07/02/24 07/02/24 07/03/24 15:00 23:00 07:00 Intake Total 520 ml 600 ml Output Total 500 ml 1 ml Balance 20 ml 599 ml medications Current Medications Medications Dose Ordered Sig/Sean Route Start Time Stop Time Status Last Admin Dose Admin Guaifenesin/ Dextromethorphan 10 ml Q4HP PRN PO 06/08/24 11:00 06/26/24 09:32 10 ML Morphine Sulfate 1 mg Q4HPRN PRN IV 06/16/24 14:00 07/01/24 15:14 1 MG Ondansetron HCl 4 mg Q4HP PRN IV 06/21/24 16:00 07/02/24 00:49 4 MG Metoclopramide HCl 10 mg Q8HPRN PRN IV 06/21/24 16:00 07/02/24 04:23 10 MG Diphenhydramine HCl 25 mg Q6HP PRN PO 06/21/24 17:00 Furosemide 20 mg BIDD IV 06/25/24 10:45 06/27/24 17:31 20 MG Nystatin 5 ml QID MT 06/27/24 12:00 07/03/24 21:47 5 ML Carbamide Peroxide 5 drop Q12HR EACH EAR 06/27/24 10:00 07/03/24 21:47 5 DROP Pantoprazole Sodium 40 mg DAILY@0600 PO 06/29/24 06:00 07/03/24 05:29 40 MG Ursodiol 300 mg BID PO 06/28/24 22:00 07/03/24 21:46 300 MG Morphine Sulfate 2 mg Q4HPRN PRN IV 06/29/24 16:45 Hydrocortisone 1 applic BID TOP 06/29/24 22:00 07/03/24 21:46 1 APPLIC Urea 15 gm TID PO 06/30/24 14:00 07/01/24 22:23 15 GM Sodium Bicarbonate 650 mg TID PO 06/30/24 11:30 07/03/24 21:43 650 MG Potassium Bicarbonate 25 meq DAILY PO 07/02/24 10:00 07/03/24 11:19 25 MEQ Metoprolol Tartrate 25 mg BID PO 07/02/24 22:00 07/03/24 21:45 25 MG Docusate Sodium 200 mg DAILYPRN PRN PO 07/02/24 14:30 Artificial Tears 1 drop Q6HP PRN EACHEYE 07/03/24 14:00 07/03/24 21:53 1 DROP objective Gen.: Patient lying in bed in no apparent distress. On room air Head: Normocephalic, atraumatic. Eyes: EOMI/PERRLA. Ears: Normal hearing. Normal anatomy. Neck/trachea: Trachea midline, supple. Nose: Normal external anatomy. Mouth: Moist mucous membranes. Chest: Decreased air entry bilaterally. No wheezing or rhonchi. Cardiovascular: Positive S1, positive S2. Regular rate and rhythm. Abdomen: Positive bowel sounds in all 4 quadrants. Soft, non-tender, non- distended. : Deferred. Rectal: Deferred. Skin: Warm, dry. Intact. Extremities: 2+ radial pulses bilaterally. No lower extremity edema. Neuro: Awake, alert, oriented x3. No gross motor or sensory deficits. Cranial nerves II through XII intact. Gait not assessed. laboratory and microbiology Laboratory Tests 07/03/24 13:25 07/02/24 09:52 Test 07/03/24 13:25 Range/Units Serum Glucose 107 H 74-106 mg/dL Assessment/Plan Impression: Cough HIV (recent diagnosis) Anemia Elevated LFTs Atypical pneumonia SIADH Events: Remains on room air Supplemental oxygen PRN Nystatin suspension Sodium bicarb tabs Continue ursodiol AFB smears negative x3. TB negative ID recommendations appreciated. Monitor WBC. Antiemetics PRN. GI recs appreciated. Check stool for bacteria, ova and parasites. Incentive spirometry Lasix on hold Monitor renal function Monitor electrolytes - supplement as necessary Monitor sodium d/t hyponatremia - 3% NS for 5 hours Nephrology recommendations appreciated DVT prophylaxis w/ Lovenox Patient is stable for discharge from the pulmonary standpoint Disposition per hospitalist Labs reviewed. Rest of plan as noted below Plan: On room air Supplemental oxygen PRN Titrate to keep O2 sats above 92%. 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 Monitor electrolytes. Supplement as necessary. Monitor ins and outs. DVT prophylaxis. Prognosis: Poor given patient's multiple co-morbidities. Rest of plan per hospitalist and other consultants. Thank you Dr. Cruz, for allowing me to participate in this patient's care. Further recommendations will depend on the patient's clinical course. Please do not hesitate to contact me if you have any questions or concerns. This medical document was created using an electronic medical record system with [employer] dictation system. Although these documentations are being carefully reviewed, there may still be some phonetic and typographical changes. The errors are purely typographical, due to imperfection on the software program, and do not reflect any compromise in the patient's medical care. Dietary Evaluation Review Comments: Encourage and monitor PO intake to meet 75% of his needs Expected Outcomes/Goals: free from symptoms, gradual weight gain. Plan discussed with: Patient, Other (AALIYAH Orourke) ANGELIC OTOOLE MD Jul 03, 2024 22:43
[2024-07-04] VITALS (9 sets, daily range): BP systolic 114–121; BP diastolic 59–75; PULSE 105–137; RESP 16–20; TEMP 98.1–99.5; O2SAT 98–100
[2024-07-04 06:07] LABS: Hematocrit 22.8 % (41.0-53.0); Hemoglobin 7.7 g/dL (13.5-17.5); Mean Corpuscular Hemoglobin 26.8 pg (28.0-32.0); Mean Corpuscular Hgb Conc. 33.8 g/dL (32.0-36.0); Mean Corpuscular Volume 79.2 fL (80.0-100.0); Platelet Count (auto) 248 10^3/uL (140-450); Red Blood Cells 2.88 10^6/uL (4.5-5.90); Red Cell Distribution Width 17.6 % (11.8-14.3)
[2024-07-04 06:14] LABS: White Blood Cell 1.4 10^3/uL (4.4-10.8)
[2024-07-04 06:16] LABS: Basophils % (manual) 0 (0.0-2.0); Blast Cells 0; Eosinophils % (manual) 0 (0-7); Metamyelocytes % 0; Myelocytes % 0; Promyelocytes % 0
[2024-07-04 06:23] LABS: Albumin 3.4 g/dL (3.2-4.8); Anion Gap 8 (5-15); BUN/Creatinine Ratio 17.4 (10.0-20.0); Carbon Dioxide 22 mmol/L (20-31); Magnesium 1.8 mg/dL (1.6-2.6)
[2024-07-04 06:24] LABS: Alanine Aminotransferase 118 U/L (7-40); Alkaline Phosphatase 749 U/L (46-116); Aspartate Aminotransferase 56 U/L (13-40); Bilirubin, Direct 6.2 mg/dL (<0.3); Bilirubin, Total 7.8 mg/dL (0.2-1.0); Blood Urea Nitrogen 8 mg/dL (9-23); Calcium 8.4 mg/dL (8.7-10.4); Chloride 96 mmol/L (98-107); Glucose 129 mg/dL (74-106); Potassium 3.3 mmol/L (3.5-5.1); Sodium 126 mmol/L (136-145); Total Protein 6.5 g/dL (5.7-8.2)
[2024-07-04 08:08] LABS: Band Neutrophils % (manual) 4; Lymphocytes % (manual) 13 (10.0-50.0); Monocytes % (manual) 8 (0-12); Platelet Estimate Adequate; Reactive Lymphocytes 2; Smudge Cells 3 /100 WBC
--- NOTE | 2024-07-04 08:26 | DVHPN2 ---
Progress Note - Dictate Date Seen: Jul 04, 2024 Has the PT tested + for MRSA If YES, has PT been informed?: Yes Medical Necessity Reason Pt with a Central, PICC or Fol: No Subjective Patient reports fatigue and weakness. Liver enzymes and WBC trending down. Hyponatremia improving sodium up to 126. Lymph stool culture shows Gram-positive summer. No enteric normal summer. vital signs Vital Sign Date Time Temp Pulse Resp B/P (MAP) Pulse Ox O2 Delivery O2 Flow Rate FiO2 07/04/24 05:00 98.9 125 18 115/62 (79) 98 98.9 07/03/24 19:30 Room Air* 0 21 Total Intake and Output 07/03/24 07/03/24 07/04/24 14:59 22:59 06:59 Intake Total 838 ml 950 ml Output Total 1000 ml Balance -162 ml 950 ml medications Current Medications Medications Dose Ordered Sig/Sean Route Start Time Stop Time Status Last Admin Dose Admin Guaifenesin/ Dextromethorphan 10 ml Q4HP PRN PO 06/08/24 11:00 06/26/24 09:32 10 ML Morphine Sulfate 1 mg Q4HPRN PRN IV 06/16/24 14:00 07/01/24 15:14 1 MG Ondansetron HCl 4 mg Q4HP PRN IV 06/21/24 16:00 07/02/24 00:49 4 MG Metoclopramide HCl 10 mg Q8HPRN PRN IV 06/21/24 16:00 07/02/24 04:23 10 MG Diphenhydramine HCl 25 mg Q6HP PRN PO 06/21/24 17:00 Furosemide 20 mg BIDD IV 06/25/24 10:45 06/27/24 17:31 20 MG Nystatin 5 ml QID MT 06/27/24 12:00 07/04/24 05:19 5 ML Carbamide Peroxide 5 drop Q12HR EACH EAR 06/27/24 10:00 07/03/24 21:47 5 DROP Pantoprazole Sodium 40 mg DAILY@0600 PO 06/29/24 06:00 07/04/24 05:19 40 MG Ursodiol 300 mg BID PO 06/28/24 22:00 07/03/24 21:46 300 MG Morphine Sulfate 2 mg Q4HPRN PRN IV 06/29/24 16:45 Hydrocortisone 1 applic BID TOP 06/29/24 22:00 07/03/24 21:46 1 APPLIC Urea 15 gm TID PO 06/30/24 14:00 07/01/24 22:23 15 GM Sodium Bicarbonate 650 mg TID PO 06/30/24 11:30 07/04/24 05:19 650 MG Potassium Bicarbonate 25 meq DAILY PO 07/02/24 10:00 07/03/24 11:19 25 MEQ Metoprolol Tartrate 25 mg BID PO 07/02/24 22:00 07/03/24 21:45 25 MG Docusate Sodium 200 mg DAILYPRN PRN PO 07/02/24 14:30 Artificial Tears 1 drop Q6HP PRN EACHEYE 07/03/24 14:00 07/04/24 05:19 1 DROP objective General Appearance: Alert, Oriented X3, Cooperative, No acute distress HEENT: Atraumatic Respiratory: Other (Scattered crackles; good air entry bilateral) Cardiovascular: Regular rate, Normal S1, Normal S2 Abdominal: Normal bowel sounds, Soft, No tenderness Neuro: Normal gait, Normal speech, Strength at 5/5 X4 ext, Normal tone, Sensation intact, Cranial nerves 3-12 NL, Reflexes 2+ Psych/Mental Status: Mental status NL, Mood NL laboratory and microbiology Laboratory Tests 07/04/24 05:44 Test 07/04/24 05:44 Range/Units Serum Glucose 129 H 74-106 mg/dL Assessment/Plan Patient is a 28-year-old male with elevated liver enzymes elevated bilirubin # hyponatremia SIADH AIDS Pneumocystis Jerovoci or Carini Pneumonia ( opportunistic infection) multifocal pneumonia: atypical in nature Possible PCP pneumonia pulmonary nodule Homosexual elevated LFT anemia Immunosuppressed Recommendations: Liver enzymes and WBC trending down. send g6pd test for alternative rx option for PCP Pneumonia 07/02, Stool culture Preliminary showed: Many growth: Gram Positive Summer. No Normal Enteric Summer. No Campylobacter antigen detected Shiga Toxin 1: Negative Shiga Toxin 2: Negative Urine opiates screen is positive Dc Bactrim ? drug induced but too high GI on board monitor LFTS MRCP unremarkable for biliary dilation stop date of bactrim was 07/04/2024,and plan was to switch to prophylaxis dose however would not recommend using Bactrim due to recent side effects. He still has high Bilirubin severe hyponatremia, nephrology on board, patient is non complaint with Sodium tablets. Discussed with patient about importance of compliance 06/25, Sputum culture pending AFB stain is negative x1 neg follow Quantiferon gold, indeterminate AFB screen x 3 pending; infection control HIV-1 RNA [PCR]: [id number]: needs ART therapy will start as outpt BAL sample to be sent for bacterial, fungal, AFB and viral cultures. follow 06/17/2024 : Chest x-ray showed Bilateral opacities which may reflect multifocal pneumonia. Prognosis guarded Thank you for consult Dietary Evaluation Review Comments: Encourage and monitor PO intake to meet 75% of his needs Expected Outcomes/Goals: free from symptoms, gradual weight gain. Plan discussed with: Other HOMERO VIGIL MD Jul 04, 2024 08:26
--- NOTE | 2024-07-04 12:47 | DVHPN2 ---
Progress Note Date Seen: Jul 04, 2024 Has the PT tested + for MRSA If YES, has PT been informed?: Yes Medical Necessity Reason Pt with a Central, PICC or Fol: No Objective vital signs Vital Sign Date Time Temp Pulse Resp B/P (MAP) Pulse Ox O2 Delivery O2 Flow Rate FiO2 07/04/24 09:02 118 114/65 07/04/24 09:00 98.8 16 98 98.8 07/04/24 08:30 Room Air* 0 21 Total Intake and Output 07/03/24 07/03/24 07/04/24 15:00 23:00 07:00 Intake Total 838 ml 950 ml Output Total 1000 ml Balance -162 ml 950 ml medications Current Medications Medications Dose Ordered Sig/Sean Route Start Time Stop Time Status Last Admin Dose Admin Guaifenesin/ Dextromethorphan 10 ml Q4HP PRN PO 06/08/24 11:00 06/26/24 09:32 10 ML Morphine Sulfate 1 mg Q4HPRN PRN IV 06/16/24 14:00 07/01/24 15:14 1 MG Ondansetron HCl 4 mg Q4HP PRN IV 06/21/24 16:00 07/02/24 00:49 4 MG Metoclopramide HCl 10 mg Q8HPRN PRN IV 06/21/24 16:00 07/02/24 04:23 10 MG Diphenhydramine HCl 25 mg Q6HP PRN PO 06/21/24 17:00 Furosemide 20 mg BIDD IV 06/25/24 10:45 06/27/24 17:31 20 MG Nystatin 5 ml QID MT 06/27/24 12:00 07/04/24 11:44 5 ML Carbamide Peroxide 5 drop Q12HR EACH EAR 06/27/24 10:00 07/04/24 09:03 5 DROP Pantoprazole Sodium 40 mg DAILY@0600 PO 06/29/24 06:00 07/04/24 05:19 40 MG Ursodiol 300 mg BID PO 06/28/24 22:00 07/04/24 09:03 300 MG Morphine Sulfate 2 mg Q4HPRN PRN IV 06/29/24 16:45 Urea 15 gm TID PO 06/30/24 14:00 07/01/24 22:23 15 GM Sodium Bicarbonate 650 mg TID PO 06/30/24 11:30 07/04/24 05:19 650 MG Potassium Bicarbonate 25 meq DAILY PO 07/02/24 10:00 07/04/24 09:02 25 MEQ Docusate Sodium 200 mg DAILYPRN PRN PO 07/02/24 14:30 Artificial Tears 1 drop Q6HP PRN EACHEYE 07/03/24 14:00 07/04/24 05:19 1 DROP Metoprolol Tartrate 50 mg BID PO 07/04/24 22:00 Examination: GENERAL:Abnormal, MSK:Abnormal laboratory and microbiology Laboratory Tests 07/04/24 05:44 Test 07/04/24 05:44 Range/Units Serum Glucose 129 H 74-106 mg/dL Microbiology Date/Time Source Procedure Growth Status 07/02/24 20:23 Stool Stool Culture - Preliminary Resulted 07/02/24 20:23 Stool Shiga Toxin I & II - Final Resulted 06/29/24 06:30 Sputum AFB Broth Culture Pending Resulted 06/29/24 06:30 Sputum - Final Resulted 06/29/24 06:30 Sputum - Final Resulted 06/29/24 06:30 Sputum Acid Fast Bacilli Culture Pending Resulted 06/21/24 18:18 Blood Blood Culture - Final NO GROWTH AFTER 5 DAYS OF INCUBATION. Complete 06/21/24 14:30 Nose MRSA Screen - Final Complete Problem List/Assessment/Plan Problem List/Assessment/Plan hyponatremia likely secondary to SIADH aggravated by IV hypotonic solution Syndrome of inappropriate antidiuretic hormone secretion AIDS Jaundice Transaminitis PCP on bactrim IV now switched to p.o. PNA leukopenia r/o TB Na 126 potassium replacement Kidney function remained within normal limit Avoid rapid correction of Na Furosemide 20 mg IV b.i.d. Fluid restriction Urea-sodium 15 g p.o. t.i.d. Sodium bicarb 650 mg p.o. t.i.d. ID consult Plan discussed with: Patient Dietary Evaluation Review Comments: Encourage and monitor PO intake to meet 75% of his needs Expected Outcomes/Goals: free from symptoms, gradual weight gain. BELL BLANK MD Jul 04, 2024 12:47
--- NOTE | 2024-07-04 13:32 | DVHPN2 ---
Subjective Patient denies any new symptoms Reviewed: Care Plan, H&P, Labs, Medications, Previous Orders, Radiology, Other (Consultations) Changes from previous H/P or p: Changes General: No Night Sweats, No Fatigue Neurological: No Weakness, No Numbness Cardiovascular: No Chest Pain Respiratory: Cough, Shortness of breath Gastrointestinal: No Nausea Musculoskeletal: No leg pain Endocrine: No Cold Intolerance Hematology: No Abnormal Bleeding Objective Vitals Vital Signs Date Time Temp Pulse Resp B/P (MAP) Pulse Ox O2 Delivery O2 Flow Rate FiO2 07/04/24 09:02 118 114/65 07/04/24 09:00 98.8 16 98 98.8 07/04/24 08:30 Room Air* 0 21 Intake/Output Intake and Output 07/04/24 07:00 Intake Total 1788 ml Output Total 1000 ml Balance 788 ml Intake Oral 1638 ml IV Total 150 ml Output Urine Total 1000 ml # Voids 1 # Bowel Movements 1 General Appearance: Alert, Oriented X3, Cooperative, moderate distress HEENT: Atraumatic, PERRLA Lungs: Other Cardiovascular: Regular rate, Normal S1, Normal S2, No murmurs Abdomen: Normal bowel sounds, Soft, No tenderness, No hepatospenomegaly Genitourinary: No Apparent Abnormalities Extremities: No edema Neuro: Normal speech, Sensation intact Skin: Dry, Intact Psych/Mental Status: Mental status NL, Mood NL Medications Current Medications Medications Dose Ordered Sig/Sean Route Start Time Stop Time Status Last Admin Dose Admin Guaifenesin/ Dextromethorphan 10 ml Q4HP PRN PO 06/08/24 11:00 06/26/24 09:32 10 ML Morphine Sulfate 1 mg Q4HPRN PRN IV 06/16/24 14:00 07/01/24 15:14 1 MG Ondansetron HCl 4 mg Q4HP PRN IV 06/21/24 16:00 07/02/24 00:49 4 MG Metoclopramide HCl 10 mg Q8HPRN PRN IV 06/21/24 16:00 07/02/24 04:23 10 MG Diphenhydramine HCl 25 mg Q6HP PRN PO 06/21/24 17:00 Furosemide 20 mg BIDD IV 06/25/24 10:45 06/27/24 17:31 20 MG Nystatin 5 ml QID MT 06/27/24 12:00 07/04/24 11:44 5 ML Carbamide Peroxide 5 drop Q12HR EACH EAR 06/27/24 10:00 07/04/24 09:03 5 DROP Pantoprazole Sodium 40 mg DAILY@0600 PO 06/29/24 06:00 07/04/24 05:19 40 MG Ursodiol 300 mg BID PO 06/28/24 22:00 07/04/24 09:03 300 MG Morphine Sulfate 2 mg Q4HPRN PRN IV 06/29/24 16:45 Urea 15 gm TID PO 06/30/24 14:00 07/01/24 22:23 15 GM Sodium Bicarbonate 650 mg TID PO 06/30/24 11:30 07/04/24 05:19 650 MG Potassium Bicarbonate 25 meq DAILY PO 07/02/24 10:00 07/04/24 09:02 25 MEQ Docusate Sodium 200 mg DAILYPRN PRN PO 07/02/24 14:30 Artificial Tears 1 drop Q6HP PRN EACHEYE 07/03/24 14:00 07/04/24 05:19 1 DROP Metoprolol Tartrate 50 mg BID PO 07/04/24 22:00 Laboratory Results Laboratory Tests 07/04/24 05:44 Chemistry Test 07/04/24 05:44 Albumin 3.4 g/dL (3.2-4.8) Calcium Level 8.4 mg/dL (8.7-10.4) L Magnesium Level 1.8 mg/dL (1.6-2.6) Total Protein 6.5 g/dL (5.7-8.2) LFT Test 07/04/24 05:44 Alanine Aminotransferase (ALT) 118 U/L (7-40) H Alkaline Phosphatase 749 U/L (46-116) H Aspartate Amino Transferase (AST) 56 U/L (13-40) H Direct Bilirubin 6.2 mg/dL (<0.3) H Total Bilirubin 7.8 mg/dL (0.2-1.0) H Urinalysis Test 06/12/24 20:52 06/19/24 10:30 06/23/24 09:13 06/26/24 16:32 Urine Mucus Few (None Seen) Urine Sodium 76 mmol/L (40-220) Urine Color Yellow (Yellow) Urine Clarity Clear (Clear) Urine pH 6.5 (5.0-9.0) Urine Specific [place] 1.013 (1.001-1.035) Urine Protein Trace (Negative) H Urine Ketones Negative (Negative) Urine Blood Trace /uL (Negative) H Urine Nitrite Negative (Negative) Urine Bilirubin 1+ (Negative) Urine Urobilinogen 6 mg/dL (Negative) Urine Leukocyte Esterase Negative /uL (Negative) Urine RBC <1 /hpf (0 - 3) Urine WBC 1 /hpf (0 - 3) Urine Squamous Epithelial Cells None seen /hpf (<5) Urine Bacteria None seen /hpf (None Seen) Urine Glucose Normal mg/dL (Normal) Urine Osmolality 752 mOsm/kg Microbiology Microbiology Date/Time Source Procedure Growth Status 07/02/24 20:23 Stool Stool Culture - Preliminary Resulted 07/02/24 20:23 Stool Shiga Toxin I & II - Final Resulted 06/29/24 06:30 Sputum AFB Broth Culture Pending Resulted 06/29/24 06:30 Sputum - Final Resulted 06/29/24 06:30 Sputum - Final Resulted 06/29/24 06:30 Sputum Acid Fast Bacilli Culture Pending Resulted 06/21/24 18:18 Blood Blood Culture - Final NO GROWTH AFTER 5 DAYS OF INCUBATION. Complete 06/21/24 14:30 Nose MRSA Screen - Final Complete Labs and/or images reviewed: Labs reviewed by me, Image(s) reviewed by me Assessment/Plan Assessment/Plan Impression: -acute hypoxic respiratory failure -multifocal pneumonia, probable P [place] -rule out tuberculosis -scoliosis -HIV/AIDS : New diagnosis -hyponatremia -SIADH -rhabdomyolysis from rigors and tremors -? Oral Jennie Medication noncompliant Plan: Events: Patient continues to refuse Lasix tablets. Sodium is now 126. Increase beta-blockers for tachycardia. Discussed case with Nephrology -echocardiogram: Unremarkable -further recommendations from Infectious Disease recommended -antiemetics -nephrology consultation: Appreciate recommendations for persistent hyponatremia -free water restriction, continue sodium tablets -pain management: Alma -O2 supplementation to keep saturation greater 92% -pulmonary consultation -repeat labs in a.m. Total time spent with patient discussing and formulating plan of care: 35 minutes. This medical document was created using an electronic medical record system with [employer] system. Although this document has been carefully reviewed, there may still be some phonetic and typographical errors. These areas are purely typographical due to imperfections of the software programs, and do not reflect any compromise in the patient's medical care. Plan discussed with: Patient, Other (RN) My Orders Orders - MATTHEW MAURER NP Procedure Category Date Status Time Artificial Tear 15ml PHA 07/03/24 In Process Opthalmic (Tears Na 14:00 Metoprolol Tartrate PHA 07/04/24 In Process Tablet (Lopressor Ta 22:00 Comprehensive LAB 07/05/24 Verified Metabolic Panel 04:00 Complete Blood Count LAB 07/05/24 Verified 04:00 Date of Service: Jul 04, 2024 Billing Provider: MATTHEW MAURER NP Common Visit Codes: [id number] INP/OBS CARE(HIGH) MATTHEW MAURER NP Jul 04, 2024 13:32
[2024-07-04] MEDS: FUROSEMIDE 20 MG TAB PO SCH (17:01)
[2024-07-04] MEDS: SODIUM CHLORIDE 1 GM TAB PO SCH (17:01)
[2024-07-04] MEDS: METOPROLOL TARTRATE 25 MG TAB PO SCH (21:55)
--- NOTE | 2024-07-04 22:05 | DVHPN2 ---
Progress Note - Dictate Date Seen: Jul 04, 2024 Has the PT tested + for MRSA If YES, has PT been informed?: Yes Medical Necessity Reason Pt with a Central, PICC or Fol: No Subjective Patient is in isolation Patient has AIDS with opportunistic infection C/o fatigue and weakness Liver enzymes and WBC trending down Hyponatremia improving sodium up to 126 vital signs Vital Sign Date Time Temp Pulse Resp B/P (MAP) Pulse Ox O2 Delivery O2 Flow Rate FiO2 07/04/24 17:01 116/59 07/04/24 17:00 99.3 136 20 100 99.3 07/04/24 08:30 Room Air* 0 21 Total Intake and Output 07/03/24 07/03/24 07/04/24 15:00 23:00 07:00 Intake Total 838 ml 950 ml Output Total 1000 ml Balance -162 ml 950 ml medications Current Medications Medications Dose Ordered Sig/Sean Route Start Time Stop Time Status Last Admin Dose Admin Guaifenesin/ Dextromethorphan 10 ml Q4HP PRN PO 06/08/24 11:00 06/26/24 09:32 10 ML Morphine Sulfate 1 mg Q4HPRN PRN IV 06/16/24 14:00 07/01/24 15:14 1 MG Ondansetron HCl 4 mg Q4HP PRN IV 06/21/24 16:00 07/02/24 00:49 4 MG Metoclopramide HCl 10 mg Q8HPRN PRN IV 06/21/24 16:00 07/02/24 04:23 10 MG Diphenhydramine HCl 25 mg Q6HP PRN PO 06/21/24 17:00 Nystatin 5 ml QID MT 06/27/24 12:00 07/04/24 17:01 5 ML Carbamide Peroxide 5 drop Q12HR EACH EAR 06/27/24 10:00 07/04/24 09:03 5 DROP Pantoprazole Sodium 40 mg DAILY@0600 PO 06/29/24 06:00 07/04/24 05:19 40 MG Ursodiol 300 mg BID PO 06/28/24 22:00 07/04/24 09:03 300 MG Morphine Sulfate 2 mg Q4HPRN PRN IV 06/29/24 16:45 Potassium Bicarbonate 25 meq DAILY PO 07/02/24 10:00 07/04/24 09:02 25 MEQ Docusate Sodium 200 mg DAILYPRN PRN PO 07/02/24 14:30 Artificial Tears 1 drop Q6HP PRN EACHEYE 07/03/24 14:00 07/04/24 05:19 1 DROP Metoprolol Tartrate 50 mg BID PO 07/04/24 22:00 Sodium Chloride 2 gm BID PO 07/04/24 14:15 07/04/24 17:01 2 GM Furosemide 60 mg DAILY PO 07/04/24 14:15 07/04/24 17:01 60 MG objective General Appearance: Alert, Oriented X3, Cooperative, mild distress; appears chronically ill HEENT: Atraumatic, PERRLA Lungs: Other, bilateral rhonchi Cardiovascular: Regular rate, Normal S1, Normal S2, No murmurs Abdomen: Normal bowel sounds, Soft, No tenderness, No hepatospenomegaly Genitourinary: No Apparent Abnormalities Extremities: No edema Neuro: Normal speech, Sensation intact Skin: Dry, Intact Psych/Mental Status: Mental status NL, Mood NL laboratory and microbiology Laboratory Tests 07/04/24 05:44 Test 07/04/24 05:44 Range/Units Serum Glucose 129 H 74-106 mg/dL Problems(with codes): (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 (2) History of SIADH (3) Hyponatremia (4) Elevated liver enzymes (5) HIV (human immunodeficiency virus infection) (6) Atypical pneumonia (7) AIDS (acquired immune deficiency syndrome) Prognosis Plan Continue supportive care ; continued neutropenia and anemia If possible send stool for cryptosporidiosis Continue IV antibiotics and nutritional support Patient is getting sodium tablets and fluid restriction Monitor labs ; transfused 1 unit PRBC if hemoglobin is less than seven Once hyponatremia resolves patient can be possibly evaluated for discharge planning Patient will be started on Biktarvy as an outpatient and then follow up with GI Services for elective panendoscopy Dietary Evaluation Review Comments: Encourage and monitor PO intake to meet 75% of his needs Expected Outcomes/Goals: free from symptoms, gradual weight gain. Plan discussed with: Patient JOB MCNEIL MD Jul 04, 2024 22:05
--- NOTE | 2024-07-04 23:51 | DVHPN2 ---
Progress Note - Dictate Date Seen: Jul 04, 2024 Has the PT tested + for MRSA If YES, has PT been informed?: Yes Medical Necessity Reason Pt with a Central, PICC or Fol: No Subjective Patient seen and examined at bedside. On room air Overnight events reviewed. vital signs Vital Sign Date Time Temp Pulse Resp B/P (MAP) Pulse Ox O2 Delivery O2 Flow Rate FiO2 07/04/24 21:55 120 119/75 07/04/24 21:00 98.1 19 100 98.1 07/04/24 20:00 Room Air* 0 21 Total Intake and Output 07/03/24 07/03/24 07/04/24 15:00 23:00 07:00 Intake Total 838 ml 950 ml Output Total 1000 ml Balance -162 ml 950 ml medications Current Medications Medications Dose Ordered Sig/Sean Route Start Time Stop Time Status Last Admin Dose Admin Guaifenesin/ Dextromethorphan 10 ml Q4HP PRN PO 06/08/24 11:00 06/26/24 09:32 10 ML Morphine Sulfate 1 mg Q4HPRN PRN IV 06/16/24 14:00 07/01/24 15:14 1 MG Ondansetron HCl 4 mg Q4HP PRN IV 06/21/24 16:00 07/02/24 00:49 4 MG Metoclopramide HCl 10 mg Q8HPRN PRN IV 06/21/24 16:00 07/02/24 04:23 10 MG Diphenhydramine HCl 25 mg Q6HP PRN PO 06/21/24 17:00 Nystatin 5 ml QID MT 06/27/24 12:00 07/04/24 21:57 5 ML Carbamide Peroxide 5 drop Q12HR EACH EAR 06/27/24 10:00 07/04/24 21:51 5 DROP Pantoprazole Sodium 40 mg DAILY@0600 PO 06/29/24 06:00 07/04/24 05:19 40 MG Ursodiol 300 mg BID PO 06/28/24 22:00 07/04/24 21:56 300 MG Morphine Sulfate 2 mg Q4HPRN PRN IV 06/29/24 16:45 Potassium Bicarbonate 25 meq DAILY PO 07/02/24 10:00 07/04/24 09:02 25 MEQ Docusate Sodium 200 mg DAILYPRN PRN PO 07/02/24 14:30 Artificial Tears 1 drop Q6HP PRN EACHEYE 07/03/24 14:00 07/04/24 05:19 1 DROP Metoprolol Tartrate 50 mg BID PO 07/04/24 22:00 07/04/24 21:55 50 MG Sodium Chloride 2 gm BID PO 07/04/24 14:15 07/04/24 21:57 2 GM Furosemide 60 mg DAILY PO 07/04/24 14:15 07/04/24 17:01 60 MG objective Gen.: Patient lying in bed in no apparent distress. On room air Head: Normocephalic, atraumatic. Eyes: EOMI/PERRLA. Ears: Normal hearing. Normal anatomy. Neck/trachea: Trachea midline, supple. Nose: Normal external anatomy. Mouth: Moist mucous membranes. Chest: Decreased air entry bilaterally. No wheezing or rhonchi. Cardiovascular: Positive S1, positive S2. Regular rate and rhythm. Abdomen: Positive bowel sounds in all 4 quadrants. Soft, non-tender, non- distended. : Deferred. Rectal: Deferred. Skin: Warm, dry. Intact. Extremities: 2+ radial pulses bilaterally. No lower extremity edema. Neuro: Awake, alert, oriented x3. No gross motor or sensory deficits. Cranial nerves II through XII intact. Gait not assessed. laboratory and microbiology Laboratory Tests 07/04/24 05:44 Test 07/04/24 05:44 Range/Units Serum Glucose 129 H 74-106 mg/dL Assessment/Plan Impression: Cough HIV (recent diagnosis) Anemia Elevated LFTs Atypical pneumonia SIADH Events: Remains on room air Supplemental oxygen PRN Nystatin suspension On sodium bicarbonate tabs Continue ursodiol AFB smears negative x3. TB negative ID recommendations appreciated. Monitor WBC. Antiemetics PRN. GI recs appreciated. Stool O&P test negative Incentive spirometry Lasix for diuresis Monitor renal function Monitor electrolytes - supplement as necessary Monitor sodium d/t hyponatremia - on sodium chloride tabs Nephrology recommendations appreciated DVT prophylaxis w/ Lovenox Patient is stable for discharge from the pulmonary standpoint Disposition per hospitalist Labs reviewed. Rest of plan as noted below Plan: On room air Supplemental oxygen PRN Titrate to keep O2 sats above 92%. 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 Monitor electrolytes. Supplement as necessary. Monitor ins and outs. DVT prophylaxis. Prognosis: Poor given patient's multiple co-morbidities. Rest of plan per hospitalist and other consultants. Thank you Dr. Cruz, for allowing me to participate in this patient's care. Further recommendations will depend on the patient's clinical course. Please do not hesitate to contact me if you have any questions or concerns. This medical document was created using an electronic medical record system with [employer] dictation system. Although these documentations are being carefully reviewed, there may still be some phonetic and typographical changes. The errors are purely typographical, due to imperfection on the software program, and do not reflect any compromise in the patient's medical care. Dietary Evaluation Review Comments: Encourage and monitor PO intake to meet 75% of his needs Expected Outcomes/Goals: free from symptoms, gradual weight gain. Plan discussed with: Patient, Other (AALIYAH Fontana) ANGELIC OTOOLE MD Jul 04, 2024 23:51
[2024-07-05] VITALS (9 sets, daily range): BP systolic 98–109; BP diastolic 55–65; PULSE 18–132; RESP 16–20; TEMP 98.2–102.9; O2SAT 97–100
[2024-07-05 07:17] LABS: Hemoglobin 7.6 g/dL (13.5-17.5); Mean Corpuscular Volume 79.7 fL (80.0-100.0)
[2024-07-05 07:19] LABS: Hematocrit 23.1 % (41.0-53.0); Mean Corpuscular Hemoglobin 26.2 pg (28.0-32.0); Mean Corpuscular Hgb Conc. 32.9 g/dL (32.0-36.0); Platelet Count (auto) 253 10^3/uL (140-450); Red Cell Distribution Width 17.6 % (11.8-14.3)
[2024-07-05 07:23] LABS: Basophils % (manual) 0 (0.0-2.0); Blast Cells 0; Eosinophils % (manual) 0 (0-7); Metamyelocytes % 0; Myelocytes % 0; Promyelocytes % 0; Reactive Lymphocytes 0; White Blood Cell 1.2 10^3/uL (4.4-10.8)
[2024-07-05 07:24] LABS: Alanine Aminotransferase 100 U/L (7-40); Albumin 3.3 g/dL (3.2-4.8); Alkaline Phosphatase 740 U/L (46-116); Anion Gap 10 (5-15); Aspartate Aminotransferase 66 U/L (13-40); Blood Urea Nitrogen 8 mg/dL (9-23); Calcium 8.6 mg/dL (8.7-10.4); Carbon Dioxide 22 mmol/L (20-31); Chloride 90 mmol/L (98-107); Glucose 105 mg/dL (74-106); Potassium 3.1 mmol/L (3.5-5.1); Sodium 122 mmol/L (136-145); Total Protein 6.5 g/dL (5.7-8.2)
[2024-07-05 07:25] LABS: Bilirubin, Total 7.1 mg/dL (0.2-1.0)
[2024-07-05 08:33] LABS: Band Neutrophils % (manual) 10; Lymphocytes % (manual) 20 (10.0-50.0); Monocytes % (manual) 4 (0-12); Platelet Estimate Adequate
[2024-07-05 08:34] LABS: Anisocytosis Slight
--- NOTE | 2024-07-05 09:38 | DVHPN2 ---
Progress Note - Dictate Date Seen: Jul 05, 2024 Has the PT tested + for MRSA If YES, has PT been informed?: Yes Medical Necessity Reason Pt with a Central, PICC or Fol: No Subjective No new acute complaint noted at this time. vital signs Vital Sign Date Time Temp Pulse Resp B/P (MAP) Pulse Ox O2 Delivery O2 Flow Rate FiO2 07/05/24 09:15 104/64 07/05/24 09:14 114 07/05/24 08:04 98.2 18 100 98.2 07/04/24 20:00 Room Air* 0 21 Total Intake and Output 07/04/24 07/04/24 07/05/24 15:00 23:00 07:00 Intake Total 480 ml 700 ml Output Total 250 ml 950 ml Balance 230 ml -250 ml medications Current Medications Medications Dose Ordered Sig/Sean Route Start Time Stop Time Status Last Admin Dose Admin Guaifenesin/ Dextromethorphan 10 ml Q4HP PRN PO 06/08/24 11:00 06/26/24 09:32 10 ML Morphine Sulfate 1 mg Q4HPRN PRN IV 06/16/24 14:00 07/01/24 15:14 1 MG Ondansetron HCl 4 mg Q4HP PRN IV 06/21/24 16:00 07/02/24 00:49 4 MG Metoclopramide HCl 10 mg Q8HPRN PRN IV 06/21/24 16:00 07/02/24 04:23 10 MG Diphenhydramine HCl 25 mg Q6HP PRN PO 06/21/24 17:00 Nystatin 5 ml QID MT 06/27/24 12:00 07/05/24 05:26 5 ML Carbamide Peroxide 5 drop Q12HR EACH EAR 06/27/24 10:00 07/05/24 09:16 5 DROP Pantoprazole Sodium 40 mg DAILY@0600 PO 06/29/24 06:00 07/05/24 05:26 40 MG Ursodiol 300 mg BID PO 06/28/24 22:00 07/05/24 09:15 300 MG Morphine Sulfate 2 mg Q4HPRN PRN IV 06/29/24 16:45 Potassium Bicarbonate 25 meq DAILY PO 07/02/24 10:00 07/05/24 09:15 25 MEQ Docusate Sodium 200 mg DAILYPRN PRN PO 07/02/24 14:30 Artificial Tears 1 drop Q6HP PRN EACHEYE 07/03/24 14:00 07/04/24 05:19 1 DROP Metoprolol Tartrate 50 mg BID PO 07/04/24 22:00 07/05/24 09:14 50 MG Sodium Chloride 2 gm BID PO 07/04/24 14:15 07/05/24 09:12 2 GM Furosemide 60 mg DAILY PO 07/04/24 14:15 07/05/24 09:15 60 MG objective General Appearance: Alert, Oriented X3, Cooperative, No acute distress HEENT: Atraumatic Respiratory: Other (Scattered crackles; good air entry bilateral) Cardiovascular: Regular rate, Normal S1, Normal S2 Abdominal: Normal bowel sounds, Soft, No tenderness Neuro: Normal gait, Normal speech, Strength at 5/5 X4 ext, Normal tone, Sensation intact, Cranial nerves 3-12 NL, Reflexes 2+ Psych/Mental Status: Mental status NL, Mood NL laboratory and microbiology Laboratory Tests 07/05/24 06:39 Test 07/05/24 06:39 Range/Units Serum Glucose 105 74-106 mg/dL Assessment/Plan Patient is a 28-year-old male with elevated liver enzymes elevated bilirubin # hyponatremia SIADH AIDS Pneumocystis Jerovoci or Carini Pneumonia ( opportunistic infection) multifocal pneumonia: atypical in nature Possible PCP pneumonia pulmonary nodule Homosexual elevated LFT anemia Immunosuppressed Recommendations: Liver enzymes and WBC trending down. send g6pd test for alternative rx option for PCP Pneumonia 07/02, Stool culture Preliminary showed: Many growth: Gram Positive Karina. No Normal Enteric Karina. No Campylobacter antigen detected Shiga Toxin 1: Negative Shiga Toxin 2: Negative Urine opiates screen is positive Dc Bactrim ? drug induced but too high GI consulted monitor LFTS MRCP unremarkable for biliary dilation stop date of bactrim was 07/04/2024 Would not recommend using Bactrim due to recent side effects. He still has high Bilirubin severe hyponatremia, nephrology on board, patient is non complaint with Sodium tablets. Discussed with patient about importance of compliance 06/25, Sputum culture pending AFB stain is negative x1 neg follow Quantiferon gold, indeterminate AFB screen x 3 pending; infection control HIV-1 RNA [PCR]: [id number]: needs ART therapy will start as outpt BAL sample to be sent for bacterial, fungal, AFB and viral cultures. follow 06/17/2024 : Chest x-ray showed Bilateral opacities which may reflect multifocal pneumonia. Prognosis guarded Thank you for consult Dietary Evaluation Review Comments: Encourage and monitor PO intake to meet 75% of his needs Expected Outcomes/Goals: free from symptoms, gradual weight gain. Plan discussed with: HOMERO Gray MD Jul 05, 2024 09:37
--- NOTE | 2024-07-05 12:12 | DVHPN2 ---
Progress Note Date Seen: Jul 05, 2024 Resident Creating Document: MING VALENTIN RESIDENT Has the PT tested + for MRSA If YES, has PT been informed?: Yes Medical Necessity Reason Pt with a Central, PICC or Fol: No Subjective Review of Systems 28-year-old homosexual male patient; who was recently diagnosed with HIV, not on treatment; who presented with cough to [facility] and was transferred to [facility] for further evaluation and treatment. He has a history of homosexual activity presents with suspected sepsis, acute hypoxic respiratory failure, and bilateral pneumonia, possibly due to atypical infections. They have a productive cough, fever, tachycardia, and decreased oxygen saturation. The patient is on IV antibiotics, oxygen therapy, and nebulizer treatments, with close monitoring and consultations from infectious disease, nephrology and pulmonology teams. Additional concerns include normocytic anemia, elevated liver enzymes, mild hyponatremia, and an elevated D- dimer, with a chest angiogram ordered to rule out DVT. Denies any prior EGD or colonoscopy, family history negative for any GI malignancy. Patient seen and examined at the bedside. Last bowel movement 07/03, patient is passing gas. Abdomen is tender and distended. X-ray KUB ordered. Reports generalized weakness. Lymph stool culture shows Gram-positive summer. No enteric normal summer. Objective vital signs Vital Sign Date Time Temp Pulse Resp B/P (MAP) Pulse Ox O2 Delivery O2 Flow Rate FiO2 07/05/24 09:15 104/64 07/05/24 09:14 114 07/05/24 08:30 18 100 Room Air* 0 21 07/05/24 08:04 98.2 98.2 Total Intake and Output 07/04/24 07/04/24 07/05/24 15:00 23:00 07:00 Intake Total 480 ml 700 ml Output Total 250 ml 950 ml Balance 230 ml -250 ml medications Current Medications Medications Dose Ordered Sig/Sean Route Start Time Stop Time Status Last Admin Dose Admin Guaifenesin/ Dextromethorphan 10 ml Q4HP PRN PO 06/08/24 11:00 06/26/24 09:32 10 ML Morphine Sulfate 1 mg Q4HPRN PRN IV 06/16/24 14:00 07/01/24 15:14 1 MG Ondansetron HCl 4 mg Q4HP PRN IV 06/21/24 16:00 07/02/24 00:49 4 MG Metoclopramide HCl 10 mg Q8HPRN PRN IV 06/21/24 16:00 07/02/24 04:23 10 MG Diphenhydramine HCl 25 mg Q6HP PRN PO 06/21/24 17:00 Nystatin 5 ml QID MT 06/27/24 12:00 07/05/24 05:26 5 ML Carbamide Peroxide 5 drop Q12HR EACH EAR 06/27/24 10:00 07/05/24 09:16 5 DROP Pantoprazole Sodium 40 mg DAILY@0600 PO 06/29/24 06:00 07/05/24 05:26 40 MG Ursodiol 300 mg BID PO 06/28/24 22:00 07/05/24 09:15 300 MG Morphine Sulfate 2 mg Q4HPRN PRN IV 06/29/24 16:45 Potassium Bicarbonate 25 meq DAILY PO 07/02/24 10:00 07/05/24 09:15 25 MEQ Docusate Sodium 200 mg DAILYPRN PRN PO 07/02/24 14:30 Artificial Tears 1 drop Q6HP PRN EACHEYE 07/03/24 14:00 07/04/24 05:19 1 DROP Metoprolol Tartrate 50 mg BID PO 07/04/24 22:00 07/05/24 09:14 50 MG Sodium Chloride 2 gm BID PO 07/04/24 14:15 07/05/24 09:12 2 GM Furosemide 60 mg DAILY PO 07/04/24 14:15 07/05/24 09:15 60 MG Examination Patient lying in bed, in no acute distress General: Well-built, afebrile, palor, mucosae are moist Cardiovascular: Regular S1 and S2. No murmurs, gallops or rubs. No JVD elevation. No pedal edema Respiratory: Normal B/L air entry on room air. Clear lung sounds on auscultation Abdomen: Soft, distended nontender to superficial touch, normoactive bowel sounds, no rebound tenderness, no organomegaly, no masses Genitourinary: Deferred MSK/skin: Mobilizes 4 limbs. Skin is dry and warm Neurological: No motor, no sensitive deficits, normal speech. Pupils are isocoric and reactive. Psych/Mental Status: A/Ox4 laboratory and microbiology Laboratory Tests 07/05/24 06:39 Test 07/05/24 06:39 Range/Units Serum Glucose 105 74-106 mg/dL Microbiology Date/Time Source Procedure Growth Status 07/02/24 20:23 Stool Stool Culture - Preliminary Resulted 07/02/24 20:23 Stool Shiga Toxin I & II - Final Resulted 06/29/24 06:30 Sputum AFB Broth Culture Pending Resulted 06/29/24 06:30 Sputum - Final Resulted 06/29/24 06:30 Sputum - Final Resulted 06/29/24 06:30 Sputum Acid Fast Bacilli Culture Pending Resulted 06/21/24 18:18 Blood Blood Culture - Final NO GROWTH AFTER 5 DAYS OF INCUBATION. 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 no filling defects. Plan: Follow up with abdomen KUB LFTs are stable, Follow up with stool ova and parasites. Consider stool studies for Cryptosporidium and isospora Continue supportive care Pantoprazole 40 mg daily LFTs trending down Patient will be started on to Biktarvy as an outpatient Avoid NSAIDs Plan discussed with patient in which all questions have been answered Case discussed with Dr. Robins Plan discussed with: Patient My Orders My Orders Orders - MING VALENTIN Procedure Category Date Status Time Kub Abdomen Single XY 07/05/24 Verified View 12:02 Dietary Evaluation Review Comments: Encourage and monitor PO intake to meet 75% of his needs Expected Outcomes/Goals: free from symptoms, gradual weight gain. MING VALENTIN RESIDENT Jul 05, 2024 12:12
--- NOTE | 2024-07-05 12:51 | DVH ---
XY KUB ABDOMEN SINGLE VIEW HISTORY: bloating and tenderness TECHNICAL DATA: 1 view of the abdomen. COMPARISON: None FINDINGS: Patchy gas is identified within nondistended small bowel. There are no dilated small bowel loops. Th ere is no abdominal mass effect. The renal and liver shadows are not enlarged. No abnormal calcifica tions are demonstrated. IMPRESSION: nonobstructive bowel gas pattern. No acute intra-abdominal process.
--- NOTE | 2024-07-05 13:59 | DVHPN2 ---
Progress Note Date Seen: Jul 05, 2024 Has the PT tested + for MRSA If YES, has PT been informed?: Yes Medical Necessity Reason Pt with a Central, PICC or Fol: No Subjective Patient reports: No new complaints Objective vital signs Vital Sign Date Time Temp Pulse Resp B/P (MAP) Pulse Ox O2 Delivery O2 Flow Rate FiO2 07/05/24 12:30 98.3 112 16 109/64 (79) 98 98.3 07/05/24 08:30 Room Air* 0 21 Total Intake and Output 07/04/24 07/04/24 07/05/24 15:00 23:00 07:00 Intake Total 480 ml 700 ml Output Total 250 ml 950 ml Balance 230 ml -250 ml medications Current Medications Medications Dose Ordered Sig/Sean Route Start Time Stop Time Status Last Admin Dose Admin Guaifenesin/ Dextromethorphan 10 ml Q4HP PRN PO 06/08/24 11:00 06/26/24 09:32 10 ML Morphine Sulfate 1 mg Q4HPRN PRN IV 06/16/24 14:00 07/01/24 15:14 1 MG Ondansetron HCl 4 mg Q4HP PRN IV 06/21/24 16:00 07/02/24 00:49 4 MG Metoclopramide HCl 10 mg Q8HPRN PRN IV 06/21/24 16:00 07/02/24 04:23 10 MG Diphenhydramine HCl 25 mg Q6HP PRN PO 06/21/24 17:00 Nystatin 5 ml QID MT 06/27/24 12:00 07/05/24 05:26 5 ML Carbamide Peroxide 5 drop Q12HR EACH EAR 06/27/24 10:00 07/05/24 09:16 5 DROP Pantoprazole Sodium 40 mg DAILY@0600 PO 06/29/24 06:00 07/05/24 05:26 40 MG Ursodiol 300 mg BID PO 06/28/24 22:00 07/05/24 09:15 300 MG Morphine Sulfate 2 mg Q4HPRN PRN IV 06/29/24 16:45 Potassium Bicarbonate 25 meq DAILY PO 07/02/24 10:00 07/05/24 09:15 25 MEQ Docusate Sodium 200 mg DAILYPRN PRN PO 07/02/24 14:30 Artificial Tears 1 drop Q6HP PRN EACHEYE 07/03/24 14:00 07/04/24 05:19 1 DROP Metoprolol Tartrate 50 mg BID PO 07/04/24 22:00 07/05/24 09:14 50 MG Sodium Chloride 2 gm BID PO 07/04/24 14:15 07/05/24 09:12 2 GM Furosemide 60 mg DAILY PO 07/04/24 14:15 07/05/24 09:15 60 MG Examination: GENERAL:Abnormal laboratory and microbiology Laboratory Tests 07/05/24 06:39 Test 07/05/24 06:39 Range/Units Serum Glucose 105 74-106 mg/dL Microbiology Date/Time Source Procedure Growth Status 07/02/24 20:23 Stool Stool Culture - Preliminary Resulted 07/02/24 20:23 Stool Shiga Toxin I & II - Final Resulted 06/29/24 06:30 Sputum AFB Broth Culture Pending Resulted 06/29/24 06:30 Sputum - Final Resulted 06/29/24 06:30 Sputum - Final Resulted 06/29/24 06:30 Sputum Acid Fast Bacilli Culture Pending Resulted 06/21/24 18:18 Blood Blood Culture - Final NO GROWTH AFTER 5 DAYS OF INCUBATION. Complete 06/21/24 14:30 Nose MRSA Screen - Final Complete Problem List/Assessment/Plan Problem List/Assessment/Plan hyponatremia likely secondary to SIADH aggravated by IV hypotonic solution Syndrome of inappropriate antidiuretic hormone secretion AIDS Jaundice Transaminitis PCP on bactrim IV now switched to p.o. PNA leukopenia r/o TB Na 122 3% NACl if Na < 120 not taking medications as prescribed potassium replacement Kidney function remained within normal limit Avoid rapid correction of Na Furosemide 20 mg IV b.i.d. Fluid restriction Urea-sodium 15 g p.o. t.i.d. Sodium bicarb 650 mg p.o. t.i.d. ID consult Plan discussed with: Patient My Orders My Orders Orders - BELL BLANK MD Procedure Category Date Status Time Sodium Chloride Tab PHA 07/04/24 In Process 14:15 Furosemide Tablet PHA 07/04/24 In Process (Lasix Tablet) 14:15 Dietary Evaluation Review Comments: Encourage and monitor PO intake to meet 75% of his needs Expected Outcomes/Goals: free from symptoms, gradual weight gain. BELL BLANK MD Jul 05, 2024 13:59
--- NOTE | 2024-07-05 14:02 | DVHPN2 ---
Subjective Patient denies any new symptoms Reviewed: Care Plan, H&P, Labs, Medications, Previous Orders, Radiology, Other (Consultations) Changes from previous H/P or p: No Changes General: No Night Sweats, No Fatigue Neurological: No Weakness, No Numbness Cardiovascular: No Chest Pain Respiratory: Cough, Shortness of breath Gastrointestinal: No Nausea Musculoskeletal: No leg pain Endocrine: No Cold Intolerance Hematology: No Abnormal Bleeding Objective Vitals Vital Signs Date Time Temp Pulse Resp B/P (MAP) Pulse Ox O2 Delivery O2 Flow Rate FiO2 07/05/24 12:30 98.3 112 16 109/64 (79) 98 98.3 07/05/24 08:30 Room Air* 0 21 Intake/Output Intake and Output 07/05/24 07:00 Intake Total 1180 ml Output Total 1200 ml Balance -20 ml Intake Oral 1180 ml Output Urine Total 1200 ml # Voids 1 General Appearance: Alert, Oriented X3, Cooperative, moderate distress HEENT: Atraumatic, PERRLA Lungs: Other Cardiovascular: Regular rate, Normal S1, Normal S2, No murmurs Abdomen: Normal bowel sounds, Soft, No tenderness, No hepatospenomegaly Genitourinary: No Apparent Abnormalities Extremities: No edema Neuro: Normal speech, Sensation intact Skin: Dry, Intact Psych/Mental Status: Mental status NL, Mood NL Medications Current Medications Medications Dose Ordered Sig/Sean Route Start Time Stop Time Status Last Admin Dose Admin Guaifenesin/ Dextromethorphan 10 ml Q4HP PRN PO 06/08/24 11:00 06/26/24 09:32 10 ML Morphine Sulfate 1 mg Q4HPRN PRN IV 06/16/24 14:00 07/01/24 15:14 1 MG Ondansetron HCl 4 mg Q4HP PRN IV 06/21/24 16:00 07/02/24 00:49 4 MG Metoclopramide HCl 10 mg Q8HPRN PRN IV 06/21/24 16:00 07/02/24 04:23 10 MG Diphenhydramine HCl 25 mg Q6HP PRN PO 06/21/24 17:00 Nystatin 5 ml QID MT 06/27/24 12:00 07/05/24 05:26 5 ML Carbamide Peroxide 5 drop Q12HR EACH EAR 06/27/24 10:00 07/05/24 09:16 5 DROP Pantoprazole Sodium 40 mg DAILY@0600 PO 06/29/24 06:00 07/05/24 05:26 40 MG Ursodiol 300 mg BID PO 06/28/24 22:00 07/05/24 09:15 300 MG Morphine Sulfate 2 mg Q4HPRN PRN IV 06/29/24 16:45 Potassium Bicarbonate 25 meq DAILY PO 07/02/24 10:00 07/05/24 09:15 25 MEQ Docusate Sodium 200 mg DAILYPRN PRN PO 07/02/24 14:30 Artificial Tears 1 drop Q6HP PRN EACHEYE 07/03/24 14:00 07/04/24 05:19 1 DROP Metoprolol Tartrate 50 mg BID PO 07/04/24 22:00 07/05/24 09:14 50 MG Sodium Chloride 2 gm BID PO 07/04/24 14:15 07/05/24 09:12 2 GM Furosemide 60 mg DAILY PO 07/04/24 14:15 07/05/24 09:15 60 MG Laboratory Results Laboratory Tests 07/05/24 06:39 Chemistry Test 07/05/24 06:39 Albumin 3.3 g/dL (3.2-4.8) Calcium Level 8.6 mg/dL (8.7-10.4) L Total Protein 6.5 g/dL (5.7-8.2) LFT Test 07/05/24 06:39 Alanine Aminotransferase (ALT) 100 U/L (7-40) H Alkaline Phosphatase 740 U/L (46-116) H Aspartate Amino Transferase (AST) 66 U/L (13-40) H Total Bilirubin 7.1 mg/dL (0.2-1.0) H Urinalysis Test 06/12/24 20:52 06/19/24 10:30 06/23/24 09:13 07/03/24 15:36 Urine Mucus Few (None Seen) Urine Sodium 76 mmol/L (40-220) Urine Color Yellow (Yellow) Urine Clarity Clear (Clear) Urine pH 6.5 (5.0-9.0) Urine Specific [place] 1.013 (1.001-1.035) Urine Protein Trace (Negative) H Urine Ketones Negative (Negative) Urine Blood Trace /uL (Negative) H Urine Nitrite Negative (Negative) Urine Bilirubin 1+ (Negative) Urine Urobilinogen 6 mg/dL (Negative) Urine Leukocyte Esterase Negative /uL (Negative) Urine RBC <1 /hpf (0 - 3) Urine WBC 1 /hpf (0 - 3) Urine Squamous Epithelial Cells None seen /hpf (<5) Urine Bacteria None seen /hpf (None Seen) Urine Glucose Normal mg/dL (Normal) Urine Osmolality 539 mOsm/kg Microbiology Microbiology Date/Time Source Procedure Growth Status 07/02/24 20:23 Stool Stool Culture - Preliminary Resulted 07/02/24 20:23 Stool Shiga Toxin I & II - Final Resulted 06/29/24 06:30 Sputum AFB Broth Culture Pending Resulted 06/29/24 06:30 Sputum - Final Resulted 06/29/24 06:30 Sputum - Final Resulted 06/29/24 06:30 Sputum Acid Fast Bacilli Culture Pending Resulted 06/21/24 18:18 Blood Blood Culture - Final NO GROWTH AFTER 5 DAYS OF INCUBATION. Complete 06/21/24 14:30 Nose MRSA Screen - Final Complete Labs and/or images reviewed: Labs reviewed by me, Image(s) reviewed by me Assessment/Plan Assessment/Plan Impression: -acute hypoxic respiratory failure -multifocal pneumonia, probable P [place] -rule out tuberculosis -scoliosis -HIV/AIDS : New diagnosis -hyponatremia -SIADH -rhabdomyolysis from rigors and tremors -? Oral Jennie Medication noncompliant Plan: Events: Discussion made with Infectious Disease regarding patient's leukopenia and threshold for giving Granulex. At this time she request for heme/Onc consultation. Patient also with persistent hyponatremia which was discussed with Nephrology. -echocardiogram: Unremarkable -further recommendations from Infectious Disease recommended -antiemetics -nephrology consultation: Appreciate recommendations for persistent hyponatremia -free water restriction, continue sodium tablets -pain management: [place] -O2 supplementation to keep saturation greater 92% -pulmonary consultation -repeat labs in a.m. Total time spent with patient discussing and formulating plan of care: 35 minutes. This medical document was created using an electronic medical record system with [employer] system. Although this document has been carefully reviewed, there may still be some phonetic and typographical errors. These areas are purely typographical due to imperfections of the software programs, and do not reflect any compromise in the patient's medical care. Plan discussed with: Patient, Other (RN) My Orders Orders - MATTHEW MAURER NP Procedure Category Date Status Time * Hematology/Oncology CONS 07/05/24 Verified Consult 13:59 Date of Service: Jul 05, 2024 Billing Provider: MATTHEW MAURER NP Common Visit Codes: [id number] INP/OBS CARE(HIGH) MATTHEW MAURER NP Jul 05, 2024 14:02
[2024-07-05] MEDS: POTASSIUM EFFERVESENT TAB 25 MEQ PO ONE (14:14)
[2024-07-05] MEDS: ACETAMINOPHEN 325 MG TAB PO PRN (23:11)
--- NOTE | 2024-07-05 23:18 | DVHPN2 ---
Progress Note - Dictate Date Seen: Jul 05, 2024 Has the PT tested + for MRSA If YES, has PT been informed?: Yes Medical Necessity Reason Pt with a Central, PICC or Fol: No Subjective Patient seen and examined at bedside. On room air Overnight events reviewed. vital signs Vital Sign Date Time Temp Pulse Resp B/P (MAP) Pulse Ox O2 Delivery O2 Flow Rate FiO2 07/05/24 21:00 102.9 132 20 105/65 (78) 97 102.9 07/05/24 08:30 Room Air* 0 21 Total Intake and Output 07/04/24 07/04/24 07/05/24 15:00 23:00 07:00 Intake Total 480 ml 700 ml Output Total 250 ml 950 ml Balance 230 ml -250 ml medications Current Medications Medications Dose Ordered Sig/Sean Route Start Time Stop Time Status Last Admin Dose Admin Guaifenesin/ Dextromethorphan 10 ml Q4HP PRN PO 06/08/24 11:00 06/26/24 09:32 10 ML Morphine Sulfate 1 mg Q4HPRN PRN IV 06/16/24 14:00 07/01/24 15:14 1 MG Ondansetron HCl 4 mg Q4HP PRN IV 06/21/24 16:00 07/02/24 00:49 4 MG Metoclopramide HCl 10 mg Q8HPRN PRN IV 06/21/24 16:00 07/02/24 04:23 10 MG Diphenhydramine HCl 25 mg Q6HP PRN PO 06/21/24 17:00 Nystatin 5 ml QID MT 06/27/24 12:00 07/05/24 18:12 5 ML Carbamide Peroxide 5 drop Q12HR EACH EAR 06/27/24 10:00 07/05/24 09:16 5 DROP Pantoprazole Sodium 40 mg DAILY@0600 PO 06/29/24 06:00 07/05/24 05:26 40 MG Ursodiol 300 mg BID PO 06/28/24 22:00 07/05/24 09:15 300 MG Morphine Sulfate 2 mg Q4HPRN PRN IV 06/29/24 16:45 Potassium Bicarbonate 25 meq DAILY PO 07/02/24 10:00 07/05/24 09:15 25 MEQ Docusate Sodium 200 mg DAILYPRN PRN PO 07/02/24 14:30 Artificial Tears 1 drop Q6HP PRN EACHEYE 07/03/24 14:00 07/04/24 05:19 1 DROP Metoprolol Tartrate 50 mg BID PO 07/04/24 22:00 07/05/24 09:14 50 MG Sodium Chloride 2 gm BID PO 07/04/24 14:15 07/05/24 09:12 2 GM Furosemide 60 mg DAILY PO 07/04/24 14:15 07/05/24 09:15 60 MG Enteral Nutritional Formula 240 ml TIDWM PO 07/06/24 08:00 Acetaminophen 650 mg Q6HP PRN PO 07/05/24 22:00 objective Gen.: Patient lying in bed in no apparent distress. On room air Head: Normocephalic, atraumatic. Eyes: EOMI/PERRLA. Ears: Normal hearing. Normal anatomy. Neck/trachea: Trachea midline, supple. Nose: Normal external anatomy. Mouth: Moist mucous membranes. Chest: Decreased air entry bilaterally. No wheezing or rhonchi. Cardiovascular: Positive S1, positive S2. Regular rate and rhythm. Abdomen: Positive bowel sounds in all 4 quadrants. Soft, non-tender, non- distended. : Deferred. Rectal: Deferred. Skin: Warm, dry. Intact. Extremities: 2+ radial pulses bilaterally. No lower extremity edema. Neuro: Awake, alert, oriented x3. No gross motor or sensory deficits. Cranial nerves II through XII intact. Gait not assessed. laboratory and microbiology Laboratory Tests 07/05/24 06:39 Test 07/05/24 06:39 Range/Units Serum Glucose 105 74-106 mg/dL Assessment/Plan Impression: Cough HIV (recent diagnosis) Anemia Elevated LFTs Atypical pneumonia SIADH Events: Remains on room air Supplemental oxygen PRN Nystatin suspension Continue ursodiol Monitor WBC. Antiemetics PRN. GI recs appreciated. Stool O&P test negative Continue bronchodilators Incentive spirometry Lasix for diuresis Monitor renal function Monitor electrolytes - supplement as necessary Monitor sodium d/t hyponatremia - on sodium chloride tabs Nephrology recommendations appreciated DVT prophylaxis w/ Lovenox Patient is stable for discharge from the pulmonary standpoint Disposition per hospitalist Labs reviewed. Rest of plan as noted below Plan: On room air Supplemental oxygen PRN Titrate to keep O2 sats above 92%. 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 TB negative ID recommendations appreciated. Monitor renal function. Monitor electrolytes. Supplement as necessary. Monitor ins and outs. DVT prophylaxis. Prognosis: Poor given patient's multiple co-morbidities. Rest of plan per hospitalist and other consultants. Thank you Dr. Cruz, for allowing me to participate in this patient's care. Further recommendations will depend on the patient's clinical course. Please do not hesitate to contact me if you have any questions or concerns. This medical document was created using an electronic medical record system with [employer] dictation system. Although these documentations are being carefully reviewed, there may still be some phonetic and typographical changes. The errors are purely typographical, due to imperfection on the software program, and do not reflect any compromise in the patient's medical care. Dietary Evaluation Review Comments: Encourage and monitor PO intake to meet 75% of his needs Expected Outcomes/Goals: free from symptoms, gradual weight gain. Plan discussed with: Patient, Other (AALIYAH Fontana) ANGELIC OTOOLE MD Jul 05, 2024 23:18
[2024-07-06] VITALS (21 sets, daily range): BP systolic 75–109; BP diastolic 42–73; PULSE 114–138; RESP 15–29; TEMP 98.4–102.6; O2SAT 95–100
--- NOTE | 2024-07-06 09:25 | DVHPN2 ---
Progress Note Date Seen: Jul 06, 2024 Resident Creating Document: MING VALENTIN RESIDENT Has the PT tested + for MRSA If YES, has PT been informed?: Yes Medical Necessity Reason Pt with a Central, PICC or Fol: No Subjective Review of Systems Patient seen and examined bedside. X-ray KUB was unremarkable. Overnight patient had soft liquid watery bowel movement. No abdominal tenderness. Overnight temperature 102.9. WBC count trending down 1.2 now. Cultures ordered by primary team. LFTs are stable. Objective vital signs Vital Sign Date Time Temp Pulse Resp B/P (MAP) Pulse Ox O2 Delivery O2 Flow Rate FiO2 07/06/24 05:00 98.4 115 20 98/61 (73) 100 98.4 07/05/24 20:00 Room Air* 0 21 Total Intake and Output 07/05/24 07/05/24 07/06/24 15:00 23:00 07:00 Intake Total 300 ml 800 ml Output Total 700 ml 1100 ml Balance -700 ml -800 ml 800 ml medications Current Medications Medications Dose Ordered Sig/Sean Route Start Time Stop Time Status Last Admin Dose Admin Guaifenesin/ Dextromethorphan 10 ml Q4HP PRN PO 06/08/24 11:00 06/26/24 09:32 10 ML Morphine Sulfate 1 mg Q4HPRN PRN IV 06/16/24 14:00 07/01/24 15:14 1 MG Ondansetron HCl 4 mg Q4HP PRN IV 06/21/24 16:00 07/02/24 00:49 4 MG Metoclopramide HCl 10 mg Q8HPRN PRN IV 06/21/24 16:00 07/02/24 04:23 10 MG Diphenhydramine HCl 25 mg Q6HP PRN PO 06/21/24 17:00 07/05/24 23:37 25 MG Nystatin 5 ml QID MT 06/27/24 12:00 07/06/24 05:48 5 ML Carbamide Peroxide 5 drop Q12HR EACH EAR 06/27/24 10:00 07/05/24 23:11 5 DROP Pantoprazole Sodium 40 mg DAILY@0600 PO 06/29/24 06:00 07/06/24 05:48 40 MG Ursodiol 300 mg BID PO 06/28/24 22:00 07/05/24 23:13 300 MG Morphine Sulfate 2 mg Q4HPRN PRN IV 06/29/24 16:45 Potassium Bicarbonate 25 meq DAILY PO 07/02/24 10:00 07/05/24 09:15 25 MEQ Docusate Sodium 200 mg DAILYPRN PRN PO 07/02/24 14:30 Artificial Tears 1 drop Q6HP PRN EACHEYE 07/03/24 14:00 07/04/24 05:19 1 DROP Metoprolol Tartrate 50 mg BID PO 07/04/24 22:00 07/05/24 09:14 50 MG Sodium Chloride 2 gm BID PO 07/04/24 14:15 07/05/24 23:12 2 GM Furosemide 60 mg DAILY PO 07/04/24 14:15 07/05/24 09:15 60 MG Enteral Nutritional Formula 240 ml TIDWM PO 07/06/24 08:00 Acetaminophen 650 mg Q6HP PRN PO 07/05/24 22:00 07/05/24 23:11 650 MG Examination Patient lying in bed, in no acute distress General: Well-built, afebrile, palor, mucosae are moist Cardiovascular: Regular S1 and S2. No murmurs, gallops or rubs. No JVD elevation. No pedal edema Respiratory: Normal B/L air entry on room air. Clear lung sounds on auscultation Abdomen: Soft, distended nontender to superficial touch, normoactive bowel sounds, no rebound tenderness, no organomegaly, no masses Genitourinary: Deferred MSK/skin: Mobilizes 4 limbs. Skin is dry and warm Neurological: No motor, no sensitive deficits, normal speech. Pupils are isocoric and reactive. Psych/Mental Status: A/Ox4 laboratory and microbiology Laboratory Tests 07/05/24 06:39 Test 07/05/24 06:39 Range/Units Serum Glucose 105 74-106 mg/dL Microbiology Date/Time Source Procedure Growth Status 07/02/24 20:23 Stool Stool Culture - Preliminary Resulted 07/02/24 20:23 Stool Shiga Toxin I & II - Final Resulted 06/29/24 06:30 Sputum AFB Broth Culture Pending Resulted 06/29/24 06:30 Sputum - Final Resulted 06/29/24 06:30 Sputum - Final Resulted 06/29/24 06:30 Sputum Acid Fast Bacilli Culture Pending Resulted 06/21/24 18:18 Blood Blood Culture - Final NO GROWTH AFTER 5 DAYS OF INCUBATION. 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 no filling defects. Plan: Stool sample sent for studies. Follow up with the ova and parasite. Stool WBC negative. Consulted infectious disease, patient would likely benefit from IV antibiotics, follow up with cultures. LFTs are stable. Consider stool studies for Cryptosporidium and isospora Continue supportive care Pantoprazole 40 mg daily LFTs trending down Patient will be started on to Biktarvy as an outpatient Avoid NSAIDs Plan discussed with patient in which all questions have been answered Case discussed with Dr. Robins Plan discussed with: Patient My Orders My Orders Orders - MING VALENTIN Procedure Category Date Status Time Kub Abdomen Single XY 07/05/24 Resulted View 12:02 Communication Order ORDERS 07/05/24 Transmitted 12:07 Dietary Evaluation Review Comments: Encourage and monitor PO intake to meet 75% of his needs Expected Outcomes/Goals: free from symptoms, gradual weight gain. MING VALENTIN Jul 06, 2024 09:25
--- NOTE | 2024-07-06 09:26 | DVH ---
CHEST RADIOGRAPH Indication: Elevated HR Temp Technique: Single frontal view of the chest was obtained Comparison: XY CHEST PORTABLE on DOS: 06/27/24, XY CHEST XRAY 1 VIEW on DOS: 06/25/24, XY CHEST XRAY 1 VIEW on DOS: 06/17/24, XY CHEST XRAY 1 VIEW on DOS: 06/15/24, XY CHEST XRAY 1 VIEW on DOS: 06/12/24 FINDINGS: Lines and Tubes: None Lungs: No focal consolidation. Pleura: No effusion. No pneumothorax. Cardiomediastinal contours: Unremarkable Bones: No acute osseous abnormality. IMPRESSION: No acute cardiopulmonary disease.
[2024-07-06] MEDS ORDERED: LACTULOSE 20Gm/30ML SOLN PO PRN (09:30)
[2024-07-06] MEDS: Ensure Enlive Strawberry 8oz Bottle PO SCH (11:04)
[2024-07-06 11:17] LABS: Potassium 3.6 mmol/L (3.5-5.1)
[2024-07-06 11:18] LABS: Anion Gap 10 (5-15); Carbon Dioxide 25 mmol/L (20-31)
[2024-07-06 11:19] LABS: Calcium 8.7 mg/dL (8.7-10.4)
[2024-07-06 11:24] LABS: BUN/Creatinine Ratio 29.2 (10.0-20.0); Blood Urea Nitrogen 14 mg/dL (9-23)
[2024-07-06 11:32] LABS: Chloride 88 mmol/L (98-107); Glucose 123 mg/dL (74-106); Sodium 123 mmol/L (136-145)
--- NOTE | 2024-07-06 17:07 | DVHPN2 ---
Progress Note Date Seen: Jul 06, 2024 Has the PT tested + for MRSA If YES, has PT been informed?: Yes Medical Necessity Reason Pt with a Central, PICC or Fol: No Subjective Patient reports: Feels worse Objective vital signs Vital Sign Date Time Temp Pulse Resp B/P (MAP) Pulse Ox O2 Delivery O2 Flow Rate FiO2 07/06/24 16:46 99.1 133 18 92/46 (61) 98 99.1 07/06/24 08:00 Room Air* 0 21 Total Intake and Output 07/05/24 07/05/24 07/06/24 15:00 23:00 07:00 Intake Total 300 ml 800 ml Output Total 700 ml 1100 ml Balance -700 ml -800 ml 800 ml medications Current Medications Medications Dose Ordered Sig/Sean Route Start Time Stop Time Status Last Admin Dose Admin Guaifenesin/ Dextromethorphan 10 ml Q4HP PRN PO 06/08/24 11:00 06/26/24 09:32 10 ML Morphine Sulfate 1 mg Q4HPRN PRN IV 06/16/24 14:00 07/01/24 15:14 1 MG Ondansetron HCl 4 mg Q4HP PRN IV 06/21/24 16:00 07/02/24 00:49 4 MG Metoclopramide HCl 10 mg Q8HPRN PRN IV 06/21/24 16:00 07/02/24 04:23 10 MG Diphenhydramine HCl 25 mg Q6HP PRN PO 06/21/24 17:00 07/05/24 23:37 25 MG Nystatin 5 ml QID MT 06/27/24 12:00 07/06/24 12:59 5 ML Carbamide Peroxide 5 drop Q12HR EACH EAR 06/27/24 10:00 07/06/24 11:04 5 DROP Pantoprazole Sodium 40 mg DAILY@0600 PO 06/29/24 06:00 07/06/24 05:48 40 MG Ursodiol 300 mg BID PO 06/28/24 22:00 07/06/24 11:05 300 MG Morphine Sulfate 2 mg Q4HPRN PRN IV 06/29/24 16:45 Potassium Bicarbonate 25 meq DAILY PO 07/02/24 10:00 07/06/24 11:03 25 MEQ Docusate Sodium 200 mg DAILYPRN PRN PO 07/02/24 14:30 Artificial Tears 1 drop Q6HP PRN EACHEYE 07/03/24 14:00 07/04/24 05:19 1 DROP Metoprolol Tartrate 50 mg BID PO 07/04/24 22:00 07/06/24 11:04 50 MG Sodium Chloride 2 gm BID PO 07/04/24 14:15 07/06/24 11:02 2 GM Furosemide 60 mg DAILY PO 07/04/24 14:15 07/06/24 11:03 60 MG Enteral Nutritional Formula 240 ml TIDWM PO 07/06/24 08:00 07/06/24 13:01 240 ML Acetaminophen 650 mg Q6HP PRN PO 07/05/24 22:00 07/05/24 23:11 650 MG Clindamycin Phosphate 50 ml @ 50 mls/hr Q8HR IV 07/06/24 22:00 Examination: GENERAL:Abnormal laboratory and microbiology Laboratory Tests 07/05/24 06:39 Test 07/06/24 16:40 Range/Units Serum Glucose Pending Microbiology Date/Time Source Procedure Growth Status 07/02/24 20:23 Stool Stool Culture - Preliminary Resulted 07/02/24 20:23 Stool Shiga Toxin I & II - Final Resulted 06/29/24 06:30 Sputum AFB Broth Culture Pending Resulted 06/29/24 06:30 Sputum - Final Resulted 06/29/24 06:30 Sputum - Final Resulted 06/29/24 06:30 Sputum Acid Fast Bacilli Culture Pending Resulted 06/21/24 18:18 Blood Blood Culture - Final NO GROWTH AFTER 5 DAYS OF INCUBATION. Complete 06/21/24 14:30 Nose MRSA Screen - Final Complete Problem List/Assessment/Plan Problem List/Assessment/Plan hyponatremia likely secondary to SIADH aggravated by IV hypotonic solution Syndrome of inappropriate antidiuretic hormone secretion AIDS Jaundice Transaminitis PCP on bactrim IV now switched to p.o. PNA leukopenia r/o TB + fever today if needs volume replacement use IV albumin Na 123 3% NACl if Na < 120 Avoid rapid correction of Na Furosemide 20 mg IV b.i.d. Fluid restriction Sodium chloride and lasix ID consult Plan discussed with: Patient My Orders My Orders Orders - BELL BLANK MD Procedure Category Date Status Time Osmolality Urine LAB 07/06/24 Logged 07:55 Dietary Evaluation Review Comments: Encourage and monitor PO intake to meet 75% of his needs Expected Outcomes/Goals: free from symptoms, gradual weight gain. BELL BLANK MD Jul 06, 2024 17:07
[2024-07-06 17:32] LABS: Albumin 3.6 g/dL (3.2-4.8); Anion Gap 10 (5-15); BUN/Creatinine Ratio 22.8 (10.0-20.0); Blood Urea Nitrogen 13 mg/dL (9-23); Carbon Dioxide 25 mmol/L (20-31); Total Protein 6.8 g/dL (5.7-8.2)
[2024-07-06 17:33] LABS: Alanine Aminotransferase 88 U/L (7-40); Alkaline Phosphatase 736 U/L (46-116); Aspartate Aminotransferase 66 U/L (13-40); Bilirubin, Total 6.3 mg/dL (0.2-1.0); Calcium 8.6 mg/dL (8.7-10.4); Chloride 88 mmol/L (98-107); Glucose 117 mg/dL (74-106); Potassium 3.3 mmol/L (3.5-5.1); Sodium 123 mmol/L (136-145)
[2024-07-06] MEDS: CLINDAMYCIN 600MG IV 50 ML IV ONE (17:53)
[2024-07-06 19:09] LABS: Urine Bacteria FEW /hpf (None Seen); Urine Blood Negative /uL (Negative); Urine Clarity Clear (Clear); Urine Color Dark-Yellow (Yellow); Urine Protein, UAD 1+ (Negative); Urine Specific Gravity 1.019 (1.001-1.035); Urine Squamous Epithelial Cell FEW /hpf (<5); Urine Urobilinogen 4 mg/dL (Negative); Urine WBC 7 /HPF (0-3); Urine pH 7.5 (5.0-9.0)
--- NOTE | 2024-07-06 19:50 | DVHPN2 ---
Progress Note - Dictate Date Seen: Jul 06, 2024 Has the PT tested + for MRSA If YES, has PT been informed?: Yes Medical Necessity Reason Pt with a Central, PICC or Fol: No Subjective Patient had soft liquid watery bowel movement overnight. No abdominal tenderness. Overnight temperature 102.9. WBC count trending down 1.2 now. Cultures ordered by primary team. LFTs are stable. X-ray KUB was unremarkable. vital signs Vital Sign Date Time Temp Pulse Resp B/P (MAP) Pulse Ox O2 Delivery O2 Flow Rate FiO2 07/06/24 16:46 99.1 133 18 92/46 (61) 98 99.1 07/06/24 08:00 Room Air* 0 21 Total Intake and Output 07/05/24 07/05/24 07/06/24 15:00 23:00 07:00 Intake Total 300 ml 800 ml Output Total 700 ml 1100 ml Balance -700 ml -800 ml 800 ml medications Current Medications Medications Dose Ordered Sig/Sean Route Start Time Stop Time Status Last Admin Dose Admin Guaifenesin/ Dextromethorphan 10 ml Q4HP PRN PO 06/08/24 11:00 06/26/24 09:32 10 ML Morphine Sulfate 1 mg Q4HPRN PRN IV 06/16/24 14:00 07/01/24 15:14 1 MG Ondansetron HCl 4 mg Q4HP PRN IV 06/21/24 16:00 07/02/24 00:49 4 MG Metoclopramide HCl 10 mg Q8HPRN PRN IV 06/21/24 16:00 07/02/24 04:23 10 MG Diphenhydramine HCl 25 mg Q6HP PRN PO 06/21/24 17:00 07/05/24 23:37 25 MG Nystatin 5 ml QID MT 06/27/24 12:00 07/06/24 17:53 5 ML Carbamide Peroxide 5 drop Q12HR EACH EAR 06/27/24 10:00 07/06/24 11:04 5 DROP Pantoprazole Sodium 40 mg DAILY@0600 PO 06/29/24 06:00 07/06/24 05:48 40 MG Ursodiol 300 mg BID PO 06/28/24 22:00 07/06/24 11:05 300 MG Morphine Sulfate 2 mg Q4HPRN PRN IV 06/29/24 16:45 Potassium Bicarbonate 25 meq DAILY PO 07/02/24 10:00 07/06/24 11:03 25 MEQ Docusate Sodium 200 mg DAILYPRN PRN PO 07/02/24 14:30 Artificial Tears 1 drop Q6HP PRN EACHEYE 07/03/24 14:00 07/04/24 05:19 1 DROP Metoprolol Tartrate 50 mg BID PO 07/04/24 22:00 07/06/24 11:04 50 MG Sodium Chloride 2 gm BID PO 07/04/24 14:15 07/06/24 11:02 2 GM Furosemide 60 mg DAILY PO 07/04/24 14:15 07/06/24 11:03 60 MG Enteral Nutritional Formula 240 ml TIDWM PO 07/06/24 08:00 07/06/24 18:21 240 ML Acetaminophen 650 mg Q6HP PRN PO 07/05/24 22:00 07/05/24 23:11 650 MG Clindamycin Phosphate 50 ml @ 50 mls/hr Q8HR IV 07/06/24 22:00 Patient Own Medication 30 mg DAILY PO 07/07/24 10:00 UNV Norepinephrine Bitartrate 250 ml @ 3.75 mls/hr Q24H IV 07/06/24 19:00 objective General Appearance: Alert, Oriented X3, Cooperative, No acute distress HEENT: Atraumatic Respiratory: Other (Scattered crackles; good air entry bilateral) Cardiovascular: Regular rate, Normal S1, Normal S2 Abdominal: Normal bowel sounds, Soft, No tenderness Neuro: Normal gait, Normal speech, Strength at 5/5 X4 ext, Normal tone, Sensation intact, Cranial nerves 3-12 NL, Reflexes 2+ Psych/Mental Status: Mental status NL, Mood NL laboratory and microbiology Laboratory Tests 07/06/24 16:40 07/05/24 06:39 Test 07/06/24 16:40 Range/Units Serum Glucose 117 H 74-106 mg/dL Assessment/Plan Patient is a 28-year-old male with elevated liver enzymes elevated bilirubin ? AIDS cholangiopathy / TMP-SMX prolonged cholangiopathy # hyponatremia SIADH AIDS Pneumocystis Jerovoci or Carini Pneumonia ( opportunistic infection) multifocal pneumonia: atypical in nature Possible PCP pneumonia pulmonary nodule Homosexual elevated LFT anemia Immunosuppressed Recommendations: https://pmc.ncbi.nlm.nih.gov/articles/QKM3334352/ "Severe and Prolonged Cholestasis Caused by Trimethoprim-Sulfamethoxazole: A Case Report" There are case reports of severe and prolonged cholestasis caused by BActrim which has lasted up to months In Ajay Cardona's case, its likely related to Bactrim as it started after IV Bactrim however there is possibility of AIDS cholangiopathy Recommend Liver biopsy as most of the other work up as remained negative for cholangiopathy. Sometimes these patient may develop Duct vanishing syndrome ( ductopenia) secondary to Bactrim as per the literature Navi F, Pal CA, Margoth S, Li S, Newsome M, Leonard KD. Epswacxcjone-ehpytciinlwopmtl-ckvhyeq vanishing bile duct syndrome. Am J Gastroenterol. 1997; In such scenario, they may need liver transplant. GI is on board, recommend further management CMV/ EBV less likely as IgM is negative, however can check PCR level, there might be low level viremia. will send PCR reviewed stool studies neg, pending OVA and parasite as recommended by GI Bactrim treatment on hold. I would not recommend prophylaxis with bactrim either due to Liver injury. send g6pd test for alternative rx option for PCP Pneumonia 07/02, Stool culture Preliminary showed: Many growth: Gram Positive Karina. No Normal Enteric Karina. No Campylobacter antigen detected Shiga Toxin 1: Negative Shiga Toxin 2: Negative Urine opiates screen is positive stop date of bactrim was 07/04/2024,and severe hyponatremia, nephrology on board 06/25, Sputum culture pending AFB stain is negative x3 neg follow Quantiferon gold, indeterminate HIV-1 RNA [PCR]: [id number]: needs ART therapy Prognosis guarded Thank you for consult Dietary Evaluation Review Comments: Encourage and monitor PO intake to meet 75% of his needs Expected Outcomes/Goals: free from symptoms, gradual weight gain. Plan discussed with: Other HOMERO VIGIL MD Jul 06, 2024 19:50
[2024-07-06] MEDS ORDERED: ALBUMIN 25% 100 ML IV ONE (20:00)
[2024-07-06] MEDS: ALBUMIN 25% 100 ML IV SCH (20:24)
[2024-07-06] MEDS: NOREPINEPHRINE 8 MG/250ML KIT 250 ML IV SCH (21:35)
[2024-07-06] MEDS: CLINDAMYCIN 600MG IV 50 ML IV SCH (22:00)
--- NOTE | 2024-07-06 22:04 | DVHPN2 ---
Progress Note - Dictate Date Seen: Jul 06, 2024 Has the PT tested + for MRSA If YES, has PT been informed?: Yes Medical Necessity Reason Pt with a Central, PICC or Fol: No Subjective Patient seen and examined at bedside. On room air Overnight events reviewed. vital signs Vital Sign Date Time Temp Pulse Resp B/P (MAP) Pulse Ox O2 Delivery O2 Flow Rate FiO2 07/06/24 21:35 78/49 07/06/24 20:30 129 07/06/24 20:15 29 99 Room Air* 0 21 07/06/24 20:03 99.6 99.6 Total Intake and Output 07/05/24 07/05/24 07/06/24 15:00 23:00 07:00 Intake Total 300 ml 800 ml Output Total 700 ml 1100 ml Balance -700 ml -800 ml 800 ml medications Current Medications Medications Dose Ordered Sig/Sean Route Start Time Stop Time Status Last Admin Dose Admin Guaifenesin/ Dextromethorphan 10 ml Q4HP PRN PO 06/08/24 11:00 06/26/24 09:32 10 ML Morphine Sulfate 1 mg Q4HPRN PRN IV 06/16/24 14:00 07/01/24 15:14 1 MG Ondansetron HCl 4 mg Q4HP PRN IV 06/21/24 16:00 07/02/24 00:49 4 MG Metoclopramide HCl 10 mg Q8HPRN PRN IV 06/21/24 16:00 07/02/24 04:23 10 MG Diphenhydramine HCl 25 mg Q6HP PRN PO 06/21/24 17:00 07/05/24 23:37 25 MG Nystatin 5 ml QID MT 06/27/24 12:00 07/06/24 17:53 5 ML Carbamide Peroxide 5 drop Q12HR EACH EAR 06/27/24 10:00 07/06/24 11:04 5 DROP Pantoprazole Sodium 40 mg DAILY@0600 PO 06/29/24 06:00 07/06/24 05:48 40 MG Ursodiol 300 mg BID PO 06/28/24 22:00 07/06/24 11:05 300 MG Morphine Sulfate 2 mg Q4HPRN PRN IV 06/29/24 16:45 Potassium Bicarbonate 25 meq DAILY PO 07/02/24 10:00 07/06/24 11:03 25 MEQ Docusate Sodium 200 mg DAILYPRN PRN PO 07/02/24 14:30 Artificial Tears 1 drop Q6HP PRN EACHEYE 07/03/24 14:00 07/04/24 05:19 1 DROP Metoprolol Tartrate 50 mg BID PO 07/04/24 22:00 07/06/24 11:04 50 MG Sodium Chloride 2 gm BID PO 07/04/24 14:15 07/06/24 11:02 2 GM Furosemide 60 mg DAILY PO 07/04/24 14:15 07/06/24 11:03 60 MG Enteral Nutritional Formula 240 ml TIDWM PO 07/06/24 08:00 07/06/24 18:21 240 ML Acetaminophen 650 mg Q6HP PRN PO 07/05/24 22:00 07/05/24 23:11 650 MG Clindamycin Phosphate 50 ml @ 50 mls/hr Q8HR IV 07/06/24 22:00 Patient Own Medication 30 mg DAILY PO 07/07/24 10:00 UNV Norepinephrine Bitartrate 250 ml @ 3.75 mls/hr Q24H IV 07/06/24 19:00 07/06/24 21:35 3.75 MLS/HR Albumin Human 100 ml @ 100 mls/hr Q8H IV 07/06/24 20:15 07/07/24 13:14 07/06/24 20:24 100 MLS/HR objective Gen.: Patient lying in bed in no apparent distress. On room air Head: Normocephalic, atraumatic. Eyes: EOMI/PERRLA. Ears: Normal hearing. Normal anatomy. Neck/trachea: Trachea midline, supple. Nose: Normal external anatomy. Mouth: Moist mucous membranes. Chest: Decreased air entry bilaterally. No wheezing or rhonchi. Cardiovascular: Positive S1, positive S2. Regular rate and rhythm. Abdomen: Positive bowel sounds in all 4 quadrants. Soft, non-tender, non- distended. : Deferred. Rectal: Deferred. Skin: Warm, dry. Intact. Extremities: 2+ radial pulses bilaterally. No lower extremity edema. Neuro: Awake, alert, oriented x3. No gross motor or sensory deficits. Cranial nerves II through XII intact. Gait not assessed. laboratory and microbiology Laboratory Tests 07/06/24 16:40 07/05/24 06:39 Test 07/06/24 16:40 Range/Units Serum Glucose 117 H 74-106 mg/dL Assessment/Plan Impression: Cough HIV (recent diagnosis) Anemia Elevated LFTs Atypical pneumonia SIADH Events: Remains on room air Supplemental oxygen PRN Upgrade to STELLA to monitor heart rate. Tachycardia - HR of 130 Started antibiotics Patient with hypotension Nystatin suspension Continue ursodiol Monitor WBC. Continue bronchodilators Incentive spirometry Follow up Hem-Onc recommendations Lasix for diuresis Monitor renal function Monitor electrolytes - supplement as necessary Monitor sodium d/t hyponatremia - on sodium chloride tabs Monitor potassium Nephrology recommendations appreciated Antiemetics PRN. GI recs appreciated. Stool O&P test negative DVT prophylaxis w/ Lovenox Patient is stable for discharge from the pulmonary standpoint Disposition per hospitalist Labs reviewed. Rest of plan as noted below Plan: On room air Supplemental oxygen PRN Titrate to keep O2 sats above 92%. 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 TB negative ID recommendations appreciated. Monitor renal function. Monitor electrolytes. Supplement as necessary. Monitor ins and outs. DVT prophylaxis. Prognosis: Poor given patient's multiple co-morbidities. Condition: Critical Rest of plan per hospitalist and other consultants. A total of 35 minutes of critical care time was spent reviewing the patient record, examining the patient, making a diagnostic and therapeutic plan, discussing this plan with the medical personnel, following up on diagnostic studies and following the patient for clinical stability excluding any and all procedures. At least 50% of this time was spent in direct, [id number] contact. Thank you Dr. Cruz, for allowing me to participate in this patient's care. Further recommendations will depend on the patient's clinical course. Please do not hesitate to contact me if you have any questions or concerns. This medical document was created using an electronic medical record system with [employer] system. Although these documentations are being carefully reviewed, there may still be some phonetic and typographical changes. The errors are purely typographical, due to imperfection on the software program, and do not reflect any compromise in the patient's medical care. Dietary Evaluation Review Comments: Encourage and monitor PO intake to meet 75% of his needs Expected Outcomes/Goals: free from symptoms, gradual weight gain. Plan discussed with: Patient, Other (AALIYAH Anand) Critical Care Time(min): 35 ANGELIC OTOOLE MD Jul 06, 2024 22:04
[2024-07-06] MEDS: POTASSIUM CHL 20 Meq TABLET PO ONE (22:23)
[2024-07-07] VITALS (91 sets, daily range): BP systolic 89–117; BP diastolic 41–69; PULSE 93–136; RESP 12–28; TEMP 98.5–100.7; O2SAT 93–100
[2024-07-07 04:11] LABS: Anion Gap 10 (5-15); Carbon Dioxide 23 mmol/L (20-31); Potassium 3.5 mmol/L (3.5-5.1)
[2024-07-07 04:12] LABS: Calcium 9.2 mg/dL (8.7-10.4)
[2024-07-07 04:17] LABS: Blood Urea Nitrogen 12 mg/dL (9-23); Chloride 90 mmol/L (98-107); Glucose 115 mg/dL (74-106); Sodium 123 mmol/L (136-145)
--- NOTE | 2024-07-07 07:11 | DVHPN2 ---
Subjective Patient denies any new symptoms Reviewed: Care Plan, H&P, Labs, Medications, Previous Orders, Radiology, Other (Consultations) Changes from previous H/P or p: No Changes General: No Night Sweats, No Fatigue Neurological: No Weakness, No Numbness Cardiovascular: No Chest Pain Respiratory: Cough, Shortness of breath Gastrointestinal: No Nausea Musculoskeletal: No leg pain Endocrine: No Cold Intolerance Hematology: No Abnormal Bleeding Objective Vitals Vital Signs Date Time Temp Pulse Resp B/P (MAP) Pulse Ox O2 Delivery O2 Flow Rate FiO2 07/07/24 03:45 120 18 109/60 (76) 99 07/07/24 00:58 Room Air* 0 21 07/07/24 00:53 98.8 98.8 Intake/Output Intake and Output 07/07/24 07:00 Intake Total 751.25 ml Output Total 400 ml Balance 351.25 ml Intake Oral 640 ml IV Total 111.25 ml Output Urine Total 400 ml # Voids 3 General Appearance: Alert, Oriented X3, Cooperative, moderate distress HEENT: Atraumatic, PERRLA Lungs: Other Cardiovascular: Normal S1, Normal S2, No murmurs, Other (Sinus tachycardia) Abdomen: Normal bowel sounds, Soft, No tenderness, No hepatospenomegaly Genitourinary: No Apparent Abnormalities Extremities: No edema Neuro: Normal speech, Sensation intact Skin: Dry, Intact Psych/Mental Status: Mental status NL, Mood NL Medications Current Medications Medications Dose Ordered Sig/Sean Route Start Time Stop Time Status Last Admin Dose Admin Guaifenesin/ Dextromethorphan 10 ml Q4HP PRN PO 06/08/24 11:00 06/26/24 09:32 10 ML Morphine Sulfate 1 mg Q4HPRN PRN IV 06/16/24 14:00 07/01/24 15:14 1 MG Ondansetron HCl 4 mg Q4HP PRN IV 06/21/24 16:00 07/02/24 00:49 4 MG Metoclopramide HCl 10 mg Q8HPRN PRN IV 06/21/24 16:00 07/02/24 04:23 10 MG Diphenhydramine HCl 25 mg Q6HP PRN PO 06/21/24 17:00 07/05/24 23:37 25 MG Nystatin 5 ml QID MT 06/27/24 12:00 07/07/24 05:44 5 ML Carbamide Peroxide 5 drop Q12HR EACH EAR 06/27/24 10:00 07/06/24 11:04 5 DROP Pantoprazole Sodium 40 mg DAILY@0600 PO 06/29/24 06:00 07/07/24 05:44 40 MG Ursodiol 300 mg BID PO 06/28/24 22:00 07/06/24 22:24 300 MG Morphine Sulfate 2 mg Q4HPRN PRN IV 06/29/24 16:45 Potassium Bicarbonate 25 meq DAILY PO 07/02/24 10:00 07/06/24 11:03 25 MEQ Docusate Sodium 200 mg DAILYPRN PRN PO 07/02/24 14:30 Artificial Tears 1 drop Q6HP PRN EACHEYE 07/03/24 14:00 07/04/24 05:19 1 DROP Metoprolol Tartrate 50 mg BID PO 07/04/24 22:00 07/06/24 11:04 50 MG Sodium Chloride 2 gm BID PO 07/04/24 14:15 07/06/24 22:24 2 GM Furosemide 60 mg DAILY PO 07/04/24 14:15 07/06/24 11:03 60 MG Enteral Nutritional Formula 240 ml TIDWM PO 07/06/24 08:00 07/06/24 18:21 240 ML Acetaminophen 650 mg Q6HP PRN PO 07/05/24 22:00 07/05/24 23:11 650 MG Clindamycin Phosphate 50 ml @ 50 mls/hr Q8HR IV 07/06/24 22:00 07/07/24 05:44 50 MLS/HR Patient Own Medication 30 mg DAILY PO 07/07/24 10:00 UNV Norepinephrine Bitartrate 250 ml @ 3.75 mls/hr Q24H IV 07/06/24 19:00 07/06/24 21:35 3.75 MLS/HR Albumin Human 100 ml @ 100 mls/hr Q8H IV 07/06/24 20:15 07/07/24 13:14 07/07/24 04:26 100 MLS/HR Laboratory Results Laboratory Tests 07/05/24 06:39 07/07/24 03:12 Chemistry Test 07/06/24 10:39 07/06/24 16:40 07/07/24 03:12 Calcium Level 8.7 mg/dL (8.7-10.4) 8.6 mg/dL (8.7-10.4) L 9.2 mg/dL (8.7-10.4) Albumin 3.6 g/dL (3.2-4.8) Total Protein 6.8 g/dL (5.7-8.2) LFT Test 07/06/24 16:40 Alanine Aminotransferase (ALT) 88 U/L (7-40) H Alkaline Phosphatase 736 U/L (46-116) H Aspartate Amino Transferase (AST) 66 U/L (13-40) H Total Bilirubin 6.3 mg/dL (0.2-1.0) H Urinalysis Test 06/12/24 20:52 06/19/24 10:30 06/23/24 09:13 07/06/24 17:06 Urine Mucus Few (None Seen) Urine Sodium 76 mmol/L (40-220) Urine WBC 1 /hpf (0 - 3) Urine Color Dark-yellow (Yellow) Urine Clarity Clear (Clear) Urine pH 7.5 (5.0-9.0) Urine Specific [place] 1.019 (1.001-1.035) Urine Protein 1+ (Negative) H Urine Ketones Negative (Negative) Urine Blood Negative /uL (Negative) Urine Nitrite Negative (Negative) Urine Bilirubin 2+ (Negative) Urine Urobilinogen 4 mg/dL (Negative) H Urine Leukocyte Esterase Negative /uL (Negative) Urine RBC 1 /hpf (0 - 3) Urine Microscopic WBC 7 /HPF (0-3) H Urine Squamous Epithelial Cells Few /hpf (<5) Urine Bacteria Few /hpf (None Seen) H Urine Osmolality 523 mOsm/kg Urine Glucose Normal mg/dL (Normal) Microbiology Microbiology Date/Time Source Procedure Growth Status 07/02/24 20:23 Stool Stool Culture - Preliminary Resulted 07/02/24 20:23 Stool Shiga Toxin I & II - Final Resulted 06/29/24 06:30 Sputum AFB Broth Culture Pending Resulted 06/29/24 06:30 Sputum - Final Resulted 06/29/24 06:30 Sputum - Final Resulted 06/29/24 06:30 Sputum Acid Fast Bacilli Culture Pending Resulted 06/21/24 18:18 Blood Blood Culture - Final NO GROWTH AFTER 5 DAYS OF INCUBATION. Complete 06/21/24 14:30 Nose MRSA Screen - Final Complete Labs and/or images reviewed: Labs reviewed by me, Image(s) reviewed by me Assessment/Plan Assessment/Plan Impression: -acute hypoxic respiratory failure -multifocal pneumonia, probable P [place] -rule out tuberculosis -scoliosis -HIV/AIDS : New diagnosis -hyponatremia -SIADH -rhabdomyolysis from rigors and tremors -? Oral Jennie Medication noncompliant Plan: Events: Patient was transferred to step-down ICU given worsening tachycardia and new onset of fevers. Attempted to speak with ID regarding re-initiation of antibiotic therapy. Unsuccessful. Barton cultures performed. Chest x-ray unremarkable. Given patient has not had significant treatment for PJP pneumonia, treatment we will be restarted with clindamycin and add primaquine. Also discussed with the patient the need to stick with a 1000 mL of total p.o. intake. Assess urine osmolality with patient continuing to have SIADH. -echocardiogram: Unremarkable -further recommendations from Infectious Disease recommended -antiemetics -nephrology consultation: Appreciate recommendations for persistent hyponatremia -free water restriction, continue sodium tablets -pain management: [place] -O2 supplementation to keep saturation greater 92% -pulmonary consultation -repeat labs in a.m. Total time spent with patient discussing and formulating plan of care: 35 minutes. This medical document was created using an electronic medical record system with [employer]ation system. Although this document has been carefully reviewed, there may still be some phonetic and typographical errors. These areas are purely typographical due to imperfections of the software programs, and do not reflect any compromise in the patient's medical care. Plan discussed with: Patient, Other (RN) My Orders Orders - MATTHEW MAURER NP Procedure Category Date Status Time Blood Culture [place] 07/06/24 In Process 08:48 Respiratory Culture [place] 07/07/24 In Process W/ Gs 06:10 Urine Bacterial [place] 07/06/24 In Process Culture 17:52 Chest Xray 1 View XY 07/06/24 Resulted 08:48 * Infectious [place]- CONS 07/06/24 Transmitted Mallad 08:48 Clindamycin 600mg Iv PHA 07/06/24 In Process (Cleocin Iv) 22:00 Transfer Orders XFER 07/06/24 Transmitted 16:32 (Nf) Primaquine PHA 07/07/24 Pending 10:00 Complete Blood Count LAB 07/07/24 Logged 04:21 Comprehensive LAB 2/2/25 Verified Metabolic Panel 05:00 Comprehensive LAB 07/09/24 Verified Metabolic Panel 05:00 Comprehensive LAB 07/10/24 Verified Metabolic Panel 05:00 Date of Service: Jul 07, 2024 Billing Provider: MATTHEW MAURER NP Common Visit Codes: [id number] CARE 30-74 MIN MATTHEW MAURER NP Jul 07, 2024 07:11
[2024-07-07] MEDS: PRIMAQUINE PO SCH (10:00)
[2024-07-07 10:26] LABS: Hematocrit 21.5 % (41.0-53.0); Hemoglobin 7.3 g/dL (13.5-17.5); Mean Corpuscular Hemoglobin 26.8 pg (28.0-32.0); Mean Corpuscular Hgb Conc. 33.9 g/dL (32.0-36.0); Platelet Count (auto) 207 10^3/uL (140-450); Red Blood Cells 2.72 10^6/uL (4.5-5.90); Red Cell Distribution Width 17.8 % (11.8-14.3)
[2024-07-07 10:29] LABS: Basophils % (manual) 0 (0.0-2.0); Blast Cells 0; Eosinophils % (manual) 0 (0-7); Metamyelocytes % 0; Myelocytes % 0; Promyelocytes % 0; Reactive Lymphocytes 0; White Blood Cell 1.3 10^3/uL (4.4-10.8)
[2024-07-07 11:17] LABS: Band Neutrophils % (manual) 11; Lymphocytes % (manual) 21 (10.0-50.0); Monocytes % (manual) 6 (0-12)
[2024-07-07 11:18] LABS: Anisocytosis Slight; Ovalocytes FEW
[2024-07-07 11:19] LABS: Platelet Estimate Adequate; Stomatocytes Moderate
--- NOTE | 2024-07-07 11:56 | DVHPN2 ---
Progress Note - Dictate Date Seen: Jul 07, 2024 Has the PT tested + for MRSA If YES, has PT been informed?: Yes Medical Necessity Reason Pt with a Central, PICC or Fol: No Subjective low wbc vital signs Vital Sign Date Time Temp Pulse Resp B/P (MAP) Pulse Ox O2 Delivery O2 Flow Rate FiO2 07/07/24 08:00 93 07/07/24 08:00 22 108/63 (78) 99 07/07/24 04:00 98.5 98.5 07/07/24 00:58 Room Air* 0 21 Total Intake and Output 07/06/24 07/06/24 07/07/24 15:00 23:00 07:00 Intake Total 747.50 ml 240.00 ml Output Total 400 ml Balance 347.50 ml 240.00 ml medications Current Medications Medications Dose Ordered Sig/Sean Route Start Time Stop Time Status Last Admin Dose Admin Guaifenesin/ Dextromethorphan 10 ml Q4HP PRN PO 06/08/24 11:00 06/26/24 09:32 10 ML Morphine Sulfate 1 mg Q4HPRN PRN IV 06/16/24 14:00 07/01/24 15:14 1 MG Ondansetron HCl 4 mg Q4HP PRN IV 06/21/24 16:00 07/02/24 00:49 4 MG Metoclopramide HCl 10 mg Q8HPRN PRN IV 06/21/24 16:00 07/02/24 04:23 10 MG Diphenhydramine HCl 25 mg Q6HP PRN PO 06/21/24 17:00 07/05/24 23:37 25 MG Nystatin 5 ml QID MT 06/27/24 12:00 07/07/24 05:44 5 ML Carbamide Peroxide 5 drop Q12HR EACH EAR 06/27/24 10:00 07/06/24 11:04 5 DROP Pantoprazole Sodium 40 mg DAILY@0600 PO 06/29/24 06:00 07/07/24 05:44 40 MG Ursodiol 300 mg BID PO 06/28/24 22:00 07/06/24 22:24 300 MG Morphine Sulfate 2 mg Q4HPRN PRN IV 06/29/24 16:45 Potassium Bicarbonate 25 meq DAILY PO 07/02/24 10:00 07/06/24 11:03 25 MEQ Docusate Sodium 200 mg DAILYPRN PRN PO 07/02/24 14:30 Artificial Tears 1 drop Q6HP PRN EACHEYE 07/03/24 14:00 07/04/24 05:19 1 DROP Metoprolol Tartrate 50 mg BID PO 07/04/24 22:00 07/06/24 11:04 50 MG Sodium Chloride 2 gm BID PO 07/04/24 14:15 07/06/24 22:24 2 GM Furosemide 60 mg DAILY PO 07/04/24 14:15 07/06/24 11:03 60 MG Enteral Nutritional Formula 240 ml TIDWM PO 07/06/24 08:00 07/06/24 18:21 240 ML Acetaminophen 650 mg Q6HP PRN PO 07/05/24 22:00 07/05/24 23:11 650 MG Clindamycin Phosphate 50 ml @ 50 mls/hr Q8HR IV 07/06/24 22:00 07/07/24 05:44 50 MLS/HR Patient Own Medication 30 mg DAILY PO 07/07/24 10:00 Norepinephrine Bitartrate 250 ml @ 3.75 mls/hr Q24H IV 07/06/24 19:00 07/06/24 21:35 3.75 MLS/HR Albumin Human 100 ml @ 100 mls/hr Q8H IV 07/06/24 20:15 07/07/24 13:14 07/07/24 04:26 100 MLS/HR objective General Appearance: Alert, Oriented X3, Cooperative, No acute distress HEENT: Atraumatic Respiratory: Other (Scattered crackles; good air entry bilateral) Cardiovascular: Regular rate, Normal S1, Normal S2 Abdominal: Normal bowel sounds, Soft, No tenderness Neuro: Normal gait, Normal speech, Strength at 5/5 X4 ext, Normal tone, Sensation intact, Cranial nerves 3-12 NL, Reflexes 2+ Psych/Mental Status: Mental status NL, Mood NL laboratory and microbiology Laboratory Tests 07/07/24 09:14 07/07/24 03:12 Test 07/07/24 03:12 Range/Units Serum Glucose 115 H 74-106 mg/dL Assessment/Plan Patient is a 28-year-old male with elevated liver enzymes elevated bilirubin ? AIDS cholangiopathy / TMP-SMX prolonged cholangiopathy # hyponatremia SIADH AIDS Pneumocystis Jerovoci or Carini Pneumonia ( opportunistic infection) multifocal pneumonia: atypical in nature Possible PCP pneumonia pulmonary nodule Homosexual elevated LFT anemia Immunosuppressed Recommendations: ordered MRI brain to rule out WHEEL [employer]ENDER cause of SIADH also order yi Redman lets see if he can tolerate it https://pmc.ncbi.nlm.nih.gov/articles/CJV5888238/ "Severe and Prolonged Cholestasis Caused by Trimethoprim-Sulfamethoxazole: A Case Report" There are case reports of severe and prolonged cholestasis caused by BActrim which has lasted up to months In Ajay Cardona's case, its likely related to Bactrim as it started after IV Bactrim however there is possibility of AIDS cholangiopathy Recommend Liver biopsy as most of the other work up as remained negative for cholangiopathy. Sometimes these patient may develop Duct vanishing syndrome ( ductopenia) secondary to Bactrim as per the literature Navi F, Pal CA, Margoth S, Li S, Newsome M, Leonard KD. Sgilepndhkjg-shyzfevzsdfypwwd-wmgczbh vanishing bile duct syndrome. Am J Gastroenterol. 1997; In such scenario, they may need liver transplant. GI is on board, recommend further management CMV/ EBV less likely as IgM is negative, however can check PCR level, there might be low level viremia. will send PCR reviewed stool studies neg, pending OVA and parasite as recommended by GI Bactrim treatment on hold. I would not recommend prophylaxis with bactrim either due to Liver injury. send g6pd test for alternative rx option for PCP Pneumonia 07/02, Stool culture Preliminary showed: Many growth: Gram Positive Karina. No Normal Enteric Karina. No Campylobacter antigen detected Shiga Toxin 1: Negative Shiga Toxin 2: Negative Urine opiates screen is positive stop date of bactrim was 07/04/2024,and severe hyponatremia, nephrology on board 06/25, Sputum culture pending AFB stain is negative x3 neg follow Quantiferon gold, indeterminate HIV-1 RNA [PCR]: [id number]: needs ART therapy Prognosis guarded Thank you for consult Dietary Evaluation Review Comments: Encourage and monitor PO intake to meet 75% of his needs Expected Outcomes/Goals: free from symptoms, gradual weight gain. Plan discussed with: Other HOMERO VIGIL MD Jul 07, 2024 11:56
--- NOTE | 2024-07-07 12:01 | DVHPN2 ---
Progress Note Date Seen: Jul 07, 2024 Has the PT tested + for MRSA If YES, has PT been informed?: Yes Medical Necessity Reason Pt with a Central, PICC or Fol: No Subjective Patient reports: Feels worse Objective vital signs Vital Sign Date Time Temp Pulse Resp B/P (MAP) Pulse Ox O2 Delivery O2 Flow Rate FiO2 07/07/24 11:20 99/57 07/07/24 10:00 108 07/07/24 08:00 22 99 07/07/24 04:00 98.5 98.5 07/07/24 00:58 Room Air* 0 21 Total Intake and Output 07/06/24 07/06/24 07/07/24 15:00 23:00 07:00 Intake Total 747.50 ml 240.00 ml Output Total 400 ml Balance 347.50 ml 240.00 ml medications Current Medications Medications Dose Ordered Sig/Sean Route Start Time Stop Time Status Last Admin Dose Admin Guaifenesin/ Dextromethorphan 10 ml Q4HP PRN PO 06/08/24 11:00 06/26/24 09:32 10 ML Morphine Sulfate 1 mg Q4HPRN PRN IV 06/16/24 14:00 07/01/24 15:14 1 MG Ondansetron HCl 4 mg Q4HP PRN IV 06/21/24 16:00 07/02/24 00:49 4 MG Metoclopramide HCl 10 mg Q8HPRN PRN IV 06/21/24 16:00 07/02/24 04:23 10 MG Diphenhydramine HCl 25 mg Q6HP PRN PO 06/21/24 17:00 07/05/24 23:37 25 MG Nystatin 5 ml QID MT 06/27/24 12:00 07/07/24 05:44 5 ML Carbamide Peroxide 5 drop Q12HR EACH EAR 06/27/24 10:00 07/06/24 11:04 5 DROP Pantoprazole Sodium 40 mg DAILY@0600 PO 06/29/24 06:00 07/07/24 05:44 40 MG Ursodiol 300 mg BID PO 06/28/24 22:00 07/07/24 11:21 300 MG Morphine Sulfate 2 mg Q4HPRN PRN IV 06/29/24 16:45 Potassium Bicarbonate 25 meq DAILY PO 07/02/24 10:00 07/07/24 11:19 25 MEQ Docusate Sodium 200 mg DAILYPRN PRN PO 07/02/24 14:30 Artificial Tears 1 drop Q6HP PRN EACHEYE 07/03/24 14:00 07/04/24 05:19 1 DROP Metoprolol Tartrate 50 mg BID PO 07/04/24 22:00 07/06/24 11:04 50 MG Sodium Chloride 2 gm BID PO 07/04/24 14:15 07/07/24 11:21 2 GM Furosemide 60 mg DAILY PO 07/04/24 14:15 07/07/24 11:20 60 MG Enteral Nutritional Formula 240 ml TIDWM PO 07/06/24 08:00 07/06/24 18:21 240 ML Acetaminophen 650 mg Q6HP PRN PO 07/05/24 22:00 07/05/24 23:11 650 MG Clindamycin Phosphate 50 ml @ 50 mls/hr Q8HR IV 07/06/24 22:00 07/07/24 05:44 50 MLS/HR Patient Own Medication 30 mg DAILY PO 07/07/24 10:00 Norepinephrine Bitartrate 250 ml @ 3.75 mls/hr Q24H IV 07/06/24 19:00 07/06/24 21:35 3.75 MLS/HR Albumin Human 100 ml @ 100 mls/hr Q8H IV 07/06/24 20:15 07/07/24 13:14 07/07/24 04:26 100 MLS/HR Examination: GENERAL:Abnormal laboratory and microbiology Laboratory Tests 07/07/24 09:14 07/07/24 03:12 Test 07/07/24 03:12 Range/Units Serum Glucose 115 H 74-106 mg/dL Microbiology Date/Time Source Procedure Growth Status 07/06/24 17:06 Voided Urine Urine Culture - Preliminary Resulted 07/02/24 20:23 Stool Stool Culture - Preliminary Resulted 07/02/24 20:23 Stool Shiga Toxin I & II - Final Resulted 06/29/24 06:30 Sputum AFB Broth Culture Pending Resulted 06/29/24 06:30 Sputum - Final Resulted 06/29/24 06:30 Sputum - Final Resulted 06/29/24 06:30 Sputum Acid Fast Bacilli Culture Pending Resulted 06/21/24 18:18 Blood Blood Culture - Final NO GROWTH AFTER 5 DAYS OF INCUBATION. Complete 06/21/24 14:30 Nose MRSA Screen - Final Complete Problem List/Assessment/Plan Problem List/Assessment/Plan hyponatremia likely secondary to SIADH aggravated by IV hypotonic solution Syndrome of inappropriate antidiuretic hormone secretion AIDS Jaundice Transaminitis PNA leukopenia r/o TB cachexia now in icu due to hypotension repeat Urine osm and urine Na today IV albumin 3% NACl if Na < 120 Avoid rapid correction of Na Furosemide 20 mg IV b.i.d. Fluid restriction Sodium chloride and lasix ID consult Plan discussed with: Patient My Orders My Orders Orders - BELL BLANK MD Procedure Category Date Status Time Albumin 25% (Albutein) PHA 07/06/24 In Process 20:15 Osmolality Urine LAB 07/07/24 Logged 08:10 Urine Sodium LAB 07/07/24 Logged 08:10 Urinalysis LAB 07/07/24 Logged 08:11 Dietary Evaluation Review Comments: Encourage and monitor PO intake to meet 75% of his needs Expected Outcomes/Goals: free from symptoms, gradual weight gain. Critical Care Time (mins): 33 BELL BLANK MD Jul 07, 2024 12:01
--- NOTE | 2024-07-07 16:12 | DVH ---
EXAM: MRI BRAIN HEAD WO W CONTRAST HISTORY: SIADH rule out commercial housekeeper cause COMPARISON: None TECHNIQUE: MRI was performed utilizing multiple appropriate imaging planes and pulse sequences prior and after uneventful administration of intravenous contrast. FINDINGS: SUPRATENTORIAL REGION: No evidence for acute ischemia or intracranial hemorrhage. POSTERIOR FOSSA: Unremarkable. BRAINSTEM: Unremarkable. SELLAR/SUPRASELLAR REGION: Unremarkable. VENTRICLES, CISTERNS, SULCI: Age-appropriate. ORBITS: Unremarkable. PARANASAL SINUSES: Unremarkable. MASTOID AIR CELLS: Unremarkable. VASCULATURE: Unremarkable. BONES/ SOFT TISSUES: Unremarkable. OTHER: None. IMPRESSION: 1. No acute intracranial process or suspicious lesion identified.
[2024-07-07 17:36] LABS: Urine Bacteria None Seen /hpf (None Seen)
[2024-07-07] MEDS: ACETAMINOPHEN 325 MG TAB PO PRN (17:50)
[2024-07-07 17:55] LABS: Urine Blood Negative /uL (Negative); Urine Clarity Clear (Clear); Urine Color Dark-Yellow (Yellow); Urine Protein, UAD 1+ (Negative); Urine Squamous Epithelial Cell None Seen /hpf (<5); Urine Urobilinogen 2 mg/dL (Negative); Urine WBC 2 /HPF (0-3); Urine pH 7.5 (5.0-9.0)
--- NOTE | 2024-07-07 23:30 | DVHPN2 ---
Progress Note - Dictate Date Seen: Jul 07, 2024 Has the PT tested + for MRSA If YES, has PT been informed?: Yes Medical Necessity Reason Pt with a Central, PICC or Fol: No Subjective Patient seen and examined at bedside. On room air Overnight events reviewed. vital signs Vital Sign Date Time Temp Pulse Resp B/P (MAP) Pulse Ox O2 Delivery O2 Flow Rate FiO2 07/07/24 22:00 114 07/07/24 22:00 22 99 Room Air* 0 21 07/07/24 22:00 96/46 (63) 07/07/24 20:00 99.6 99.6 Total Intake and Output 07/06/24 07/06/24 07/07/24 15:00 23:00 07:00 Intake Total 747.50 ml 240.00 ml Output Total 400 ml Balance 347.50 ml 240.00 ml medications Current Medications Medications Dose Ordered Sig/Sean Route Start Time Stop Time Status Last Admin Dose Admin Guaifenesin/ Dextromethorphan 10 ml Q4HP PRN PO 06/08/24 11:00 06/26/24 09:32 10 ML Morphine Sulfate 1 mg Q4HPRN PRN IV 06/16/24 14:00 07/01/24 15:14 1 MG Ondansetron HCl 4 mg Q4HP PRN IV 06/21/24 16:00 07/02/24 00:49 4 MG Metoclopramide HCl 10 mg Q8HPRN PRN IV 06/21/24 16:00 07/02/24 04:23 10 MG Diphenhydramine HCl 25 mg Q6HP PRN PO 06/21/24 17:00 07/05/24 23:37 25 MG Nystatin 5 ml QID MT 06/27/24 12:00 07/07/24 22:26 5 ML Carbamide Peroxide 5 drop Q12HR EACH EAR 06/27/24 10:00 07/06/24 11:04 5 DROP Pantoprazole Sodium 40 mg DAILY@0600 PO 06/29/24 06:00 07/07/24 05:44 40 MG Ursodiol 300 mg BID PO 06/28/24 22:00 07/07/24 22:27 300 MG Morphine Sulfate 2 mg Q4HPRN PRN IV 06/29/24 16:45 Potassium Bicarbonate 25 meq DAILY PO 07/02/24 10:00 07/07/24 11:19 25 MEQ Docusate Sodium 200 mg DAILYPRN PRN PO 07/02/24 14:30 Artificial Tears 1 drop Q6HP PRN EACHEYE 07/03/24 14:00 07/04/24 05:19 1 DROP Metoprolol Tartrate 50 mg BID PO 07/04/24 22:00 07/06/24 11:04 50 MG Sodium Chloride 2 gm BID PO 07/04/24 14:15 07/07/24 22:26 2 GM Furosemide 60 mg DAILY PO 07/04/24 14:15 07/07/24 11:20 60 MG Enteral Nutritional Formula 240 ml TIDWM PO 07/06/24 08:00 07/07/24 18:46 240 ML Clindamycin Phosphate 50 ml @ 50 mls/hr Q8HR IV 07/06/24 22:00 07/07/24 22:26 50 MLS/HR Norepinephrine Bitartrate 250 ml @ 3.75 mls/hr Q24H IV 07/06/24 19:00 07/06/24 21:35 3.75 MLS/HR Patient Own Medication 30 mg DAILY PO 07/09/24 10:00 Acetaminophen 650 mg Q6HP PRN PO 07/07/24 17:30 07/07/24 17:50 650 MG objective Gen.: Patient lying in bed in no apparent distress. On room air Head: Normocephalic, atraumatic. Eyes: EOMI/PERRLA. Ears: Normal hearing. Normal anatomy. Neck/trachea: Trachea midline, supple. Nose: Normal external anatomy. Mouth: Moist mucous membranes. Chest: Decreased air entry bilaterally. No wheezing or rhonchi. Cardiovascular: Positive S1, positive S2. Regular rate and rhythm. Abdomen: Positive bowel sounds in all 4 quadrants. Soft, non-tender, non- distended. : Deferred. Rectal: Deferred. Skin: Warm, dry. Intact. Extremities: 2+ radial pulses bilaterally. No lower extremity edema. Neuro: Awake, alert, oriented x3. No gross motor or sensory deficits. Cranial nerves II through XII intact. Gait not assessed. laboratory and microbiology Laboratory Tests 07/07/24 09:14 07/07/24 03:12 Test 07/07/24 03:12 Range/Units Serum Glucose 115 H 74-106 mg/dL Assessment/Plan Impression: Cough HIV (recent diagnosis) Anemia Elevated LFTs Atypical pneumonia SIADH Events: Remains on room air Supplemental oxygen PRN Off Levophed since AM. On neutropenic precautions. Diarrhea x3 today. 1 L fluid restriction. Continue antibiotics Nystatin suspension Continue ursodiol Monitor WBC. Incentive spirometry Hem-Onc recommendations appreciated Lasix for diuresis Monitor renal function Monitor electrolytes - supplement as necessary Monitor sodium d/t hyponatremia 123 - on sodium chloride tabs Monitor potassium Nephrology recommendations appreciated Antiemetics PRN. GI recs appreciated. Stool O&P test negative DVT prophylaxis w/ Lovenox Patient is stable for discharge from the pulmonary standpoint Disposition per hospitalist Labs reviewed. Rest of plan as noted below Plan: On room air Supplemental oxygen PRN Titrate to keep O2 sats above 92%. 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 TB negative ID recommendations appreciated. Monitor renal function. Monitor electrolytes. Supplement as necessary. Monitor ins and outs. DVT prophylaxis. Prognosis: Poor given patient's multiple co-morbidities. Condition: Critical Rest of plan per hospitalist and other consultants. A total of 35 minutes of critical care time was spent reviewing the patient record, examining the patient, making a diagnostic and therapeutic plan, discussing this plan with the medical personnel, following up on diagnostic studies and following the patient for clinical stability excluding any and all procedures. At least 50% of this time was spent in direct, [id number] contact. Thank you Dr. Cruz, for allowing me to participate in this patient's care. Further recommendations will depend on the patient's clinical course. Please do not hesitate to contact me if you have any questions or concerns. This medical document was created using an electronic medical record system with [employer] dictation system. Although these documentations are being carefully reviewed, there may still be some phonetic and typographical changes. The errors are purely typographical, due to imperfection on the software program, and do not reflect any compromise in the patient's medical care. Dietary Evaluation Review Comments: Encourage and monitor PO intake to meet 75% of his needs Expected Outcomes/Goals: free from symptoms, gradual weight gain. Plan discussed with: Other (AALIYAH Lopez) Critical Care Time(min): 35 ANGELIC OTOOLE MD Jul 07, 2024 23:30
[2024-07-08] VITALS (100 sets, daily range): BP systolic 83–125; BP diastolic 39–70; PULSE 84–134; RESP 11–26; TEMP 98.3–102.5; O2SAT 94–100
[2024-07-08 04:01] LABS: Anion Gap 11 (5-15); BUN/Creatinine Ratio 27.5 (10.0-20.0); Blood Urea Nitrogen 14 mg/dL (9-23); Carbon Dioxide 24 mmol/L (20-31); Potassium 4.3 mmol/L (3.5-5.1)
[2024-07-08 04:02] LABS: Total Protein 7.2 g/dL (5.7-8.2)
[2024-07-08 04:19] LABS: Alanine Aminotransferase 57 U/L (7-40); Alkaline Phosphatase 559 U/L (46-116); Aspartate Aminotransferase 59 U/L (13-40); Bilirubin, Total 5.8 mg/dL (0.2-1.0); Chloride 92 mmol/L (98-107); Glucose 111 mg/dL (74-106); Sodium 127 mmol/L (136-145)
[2024-07-08] MEDS ORDERED: BICT1TAB PO (09:36)
--- NOTE | 2024-07-08 09:39 | DVHPN2 ---
Subjective Patient denies any new symptoms Reviewed: Care Plan, H&P, Labs, Medications, Previous Orders, Radiology, Other (Consultations) Changes from previous H/P or p: No Changes General: No Night Sweats, No Fatigue Neurological: No Weakness, No Numbness Cardiovascular: No Chest Pain Respiratory: Cough, Shortness of breath Gastrointestinal: No Nausea Musculoskeletal: No leg pain Endocrine: No Cold Intolerance Hematology: No Abnormal Bleeding Objective Vitals Vital Signs Date Time Temp Pulse Resp B/P (MAP) Pulse Ox O2 Delivery O2 Flow Rate FiO2 07/08/24 09:00 94/44 07/08/24 08:42 113 07/08/24 07:40 99.1 07/08/24 07:39 16 98 Room Air* 0 21 Intake/Output Intake and Output 07/08/24 07:00 Intake Total 763.75 ml Output Total 1000 ml Balance -236.25 ml Intake Oral 530 ml IV Total 233.75 ml Output Urine Total 1000 ml # Voids 5 # Bowel Movements 3 General Appearance: Alert, Oriented X3, Cooperative, moderate distress HEENT: Atraumatic, PERRLA Lungs: Other Cardiovascular: Normal S1, Normal S2, No murmurs, Other (Sinus tachycardia) Abdomen: Normal bowel sounds, Soft, No tenderness, No hepatospenomegaly Genitourinary: No Apparent Abnormalities Extremities: No edema Neuro: Normal speech, Sensation intact Skin: Dry, Intact Psych/Mental Status: Mental status NL, Mood NL Medications Current Medications Medications Dose Ordered Sig/Sean Route Start Time Stop Time Status Last Admin Dose Admin Guaifenesin/ Dextromethorphan 10 ml Q4HP PRN PO 06/08/24 11:00 06/26/24 09:32 10 ML Morphine Sulfate 1 mg Q4HPRN PRN IV 06/16/24 14:00 07/01/24 15:14 1 MG Ondansetron HCl 4 mg Q4HP PRN IV 06/21/24 16:00 07/02/24 00:49 4 MG Metoclopramide HCl 10 mg Q8HPRN PRN IV 06/21/24 16:00 07/02/24 04:23 10 MG Diphenhydramine HCl 25 mg Q6HP PRN PO 06/21/24 17:00 07/05/24 23:37 25 MG Nystatin 5 ml QID MT 06/27/24 12:00 07/08/24 06:05 5 ML Carbamide Peroxide 5 drop Q12HR EACH EAR 06/27/24 10:00 07/08/24 08:44 5 DROP Pantoprazole Sodium 40 mg DAILY@0600 PO 06/29/24 06:00 07/08/24 06:05 40 MG Ursodiol 300 mg BID PO 06/28/24 22:00 07/08/24 08:43 300 MG Morphine Sulfate 2 mg Q4HPRN PRN IV 06/29/24 16:45 Potassium Bicarbonate 25 meq DAILY PO 07/02/24 10:00 07/08/24 08:47 25 MEQ Docusate Sodium 200 mg DAILYPRN PRN PO 07/02/24 14:30 Artificial Tears 1 drop Q6HP PRN EACHEYE 07/03/24 14:00 07/04/24 05:19 1 DROP Metoprolol Tartrate 50 mg BID PO 07/04/24 22:00 07/06/24 11:04 50 MG Sodium Chloride 2 gm BID PO 07/04/24 14:15 07/08/24 08:44 2 GM Furosemide 60 mg DAILY PO 07/04/24 14:15 07/08/24 08:42 60 MG Enteral Nutritional Formula 240 ml TIDWM PO 07/06/24 08:00 07/08/24 07:59 240 ML Clindamycin Phosphate 50 ml @ 50 mls/hr Q8HR IV 07/06/24 22:00 07/08/24 06:07 50 MLS/HR Norepinephrine Bitartrate 250 ml @ 3.75 mls/hr Q24H IV 07/06/24 19:00 07/06/24 21:35 3.75 MLS/HR Patient Own Medication 30 mg DAILY PO 07/09/24 10:00 Acetaminophen 650 mg Q6HP PRN PO 07/07/24 17:30 07/08/24 06:40 650 MG Laboratory Results Laboratory Tests 07/07/24 09:14 07/08/24 02:59 Chemistry Test 07/08/24 02:59 Albumin 4.0 g/dL (3.2-4.8) Calcium Level 10.0 mg/dL (8.7-10.4) Total Protein 7.2 g/dL (5.7-8.2) LFT Test 07/08/24 02:59 Alanine Aminotransferase (ALT) 57 U/L (7-40) H Alkaline Phosphatase 559 U/L (46-116) H Aspartate Amino Transferase (AST) 59 U/L (13-40) H Total Bilirubin 5.8 mg/dL (0.2-1.0) H Urinalysis Test 06/12/24 20:52 06/23/24 09:13 07/07/24 17:20 Urine Mucus Few (None Seen) Urine WBC 1 /hpf (0 - 3) Urine Color Dark-yellow (Yellow) Urine Clarity Clear (Clear) Urine pH 7.5 (5.0-9.0) Urine Specific [place] 1.020 (1.001-1.035) Urine Protein 1+ (Negative) H Urine Ketones Negative (Negative) Urine Blood Negative /uL (Negative) Urine Nitrite Negative (Negative) Urine Bilirubin 1+ (Negative) Urine Urobilinogen 2 mg/dL (Negative) H Urine Leukocyte Esterase Negative /uL (Negative) Urine RBC <1 /hpf (0 - 3) Urine Microscopic WBC 2 /HPF (0-3) Urine Squamous Epithelial Cells None seen /hpf (<5) Urine Bacteria None seen /hpf (None Seen) Urine Osmolality 440 mOsm/kg Urine Sodium 60 mmol/L (40-220) Urine Glucose Normal mg/dL (Normal) Microbiology Microbiology Date/Time Source Procedure Growth Status 07/06/24 17:06 Voided Urine Urine Culture - Preliminary Resulted 07/06/24 12:50 Blood Blood Culture - Preliminary NO GROWTH AFTER 24 HOURS OF INCUBATION. Resulted 07/02/24 20:23 Stool Stool Culture - Preliminary Resulted 07/02/24 20:23 Stool Shiga Toxin I & II - Final Resulted 06/29/24 06:30 Sputum AFB Broth Culture Pending Resulted 06/29/24 06:30 Sputum - Final Resulted 06/29/24 06:30 Sputum - Final Resulted 06/29/24 06:30 Sputum Acid Fast Bacilli Culture Pending Resulted 06/21/24 14:30 Nose MRSA Screen - Final Complete Labs and/or images reviewed: Labs reviewed by me, Image(s) reviewed by me Assessment/Plan Assessment/Plan Impression: -acute hypoxic respiratory failure -multifocal pneumonia, probable P TENNILLE -rule out tuberculosis -scoliosis -HIV/AIDS : New diagnosis -hyponatremia -SIADH -rhabdomyolysis from rigors and tremors -? Oral Jennie Medication noncompliant Plan: Events: Patient was sodium level improving. MRI of the brain was ordered yesterday with results having no acute findings. Currently awaiting treatment for P TENNILLE with primaquine, with patient currently on clindamycin. Biktarvy ordered as an outpatient, for medications to be brought in to be used inpatient. Urine culture positive for Enterococcus species -further recommendations from Infectious Disease recommended -antiemetics -nephrology consultation: Appreciate recommendations for persistent hyponatremia -free water restriction, continue sodium tablets -pain management: [place] -O2 supplementation to keep saturation greater 92% -pulmonary consultation -repeat labs in a.m. Total time spent with patient discussing and formulating plan of care: 35 minutes. This medical document was created using an electronic medical record system with [employer] dictation system. Although this document has been carefully reviewed, there may still be some phonetic and typographical errors. These areas are purely typographical due to imperfections of the software programs, and do not reflect any compromise in the patient's medical care. Plan discussed with: Patient, Other (RN) My Orders Orders - MATTHEW MAURER NP Procedure Category Date Status Time (Nf) Primaquine PHA 07/09/24 In Process 10:00 Cleanse Wound With STANLEY 07/07/24 In Process Mild Soap A 12:50 Apply Barrier Cream STANLEY 07/07/24 In Process 15:14 Acetaminophen Tablet PHA 07/07/24 In Process (Tylenol Tablet) 17:30 Date of Service: Jul 08, 2024 Billing Provider: MATTHEW MAURER NP Common Visit Codes: 09961-[id number] CARE 30-74 MIN MATTHEW MAURER NP Jul 08, 2024 09:39
--- NOTE | 2024-07-08 10:18 | DVHINCON2 ---
Date of service: Jul 08, 2024 Referring Physician Blake Gardner NP Reason for Consultation Leukopenia, Anemia History of Present Illness Mr. Yemi Moss is a 28-year-old male with recent diagnosis of HIV, who was transferred from [facility] to [facility] on 06/08/2024 for consideration of possible bronchoscopy. Patient endorses a development of cough since February 2024, with progressive worsening. He reports that he was found to have oxygen saturation at home of 80%, which is why he initially presented to [facility]. He reported intermittent fevers with the cough. CT chest on 06/08/2024 showed patchy ground-glass opacities in both lungs with superimposed nodules in the left lower lung. Findings are likely infectious / inflammatory. Consider atypical infections. Nodules would be amenable to CT-guided biopsy if clinically indicated. Recommend clinical correlation and continued follow-up to resolution. HIV RNA PCR noted to be 1,970,000 on 06/08/2024. Bronchoscopy performed on 06/12/2024. Silver stain from BAL was positive for PCP. He was subsequently diagnosed with PCP pneumonia, and initiated on treatment with Bactrim. He subsequently developed acute kidney injury on 06/21/2024 and progressive hyponatremia 117 on 06/21/2024, due to which Bactrim was discontinued. He was also found to have abnormal LFTs on 06/24/2024, with a total bilirubin of 4.5, which peaked at 12.2 on 06/29/2024. AST was found to be 2516 on 06/24/2024, and ALT was noted to be 1321. Patient's LFTs have progressively improved since then. Most recent labs revealed WBC 1.3, hemoglobin 7.3, MCV 79.0, platelets 207,000. On admission, patient's WBC was within normal limits at 5.5, However progressively declined since 06/14/2024, when it was noted to be 3.8. Patient's WBC count nadired to 1.2 on 07/05/2024. Differential shows immature granulocytes, bands, and lymphocytes. In addition, patient has had progressive anemia, with most recent hemoglobin of 7.3 on 07/07/2024. MCV 79.0. Ferritin >3300.0 on 06/26/2024. Hematology consult has been requested for further evaluation of leukopenia and anemia. Of note, patient reports that he received a call from pharmacy noting that his antiretroviral treatment is ready to be picked up, however he seems to have lost the number to the pharmacy. Family History: Diabetes mellitus G8 MOTHER G8 FATHER Ischemic heart disease G8 MOTHER G8 FATHER Social History Lives in [place]. Previous history of sexual encounter with male partners. Allergies: Coded Allergies: NO KNOWN ALLERGIES (Unverified , 06/08/24) Home Meds Active Scripts Dlzwzlcinuv-Zbfacjksniqin-Pseo (Biktarvy 50-200-25 mg) 1 Tab Tab, 1 TAB PO DAILY for 60 Days, #60 TAB Prov:MATTHEW GARDNER [employer] 07/08/24 Current Medications Current Medications Medications (Trade) Dose Ordered Sig/Sean Route PRN Reason Start Time Stop Time Status Last Admin Patient Own Medication 30 mg DAILY PO 07/09/24 10:00 Acetaminophen (Tylenol Tablet) 650 mg Q6HP PRN PO MILD PAIN (1-3 PAIN SCALE) 07/07/24 17:30 07/08/24 06:40 Review of Systems Negative, otherwise as stated above. Vital Signs Vital Signs Date Time Temp Pulse Resp B/P (MAP) Pulse Ox O2 Delivery O2 Flow Rate FiO2 07/08/24 09:00 94/44 07/08/24 08:42 113 07/08/24 07:40 99.1 07/08/24 07:39 16 98 Room Air* 0 21 Physical Exam GENERAL APPEARANCE: Poorly nourished, alert and cooperative, and appears to be in no acute distress. Thin/frail appearing HEAD: normocephalic. EYES: PERRL, EOMI. Fundi normal, vision is grossly intact. CARDIAC: Normal S1 and S2. No S3, S4 or murmurs. Rhythm is regular. LUNGS: Clear to auscultation and percussion without rales, rhonchi, wheezing or diminished breath sounds. ABDOMEN: Positive bowel sounds. Soft, nondistended, nontender. No guarding or rebound. No masses. EXTREMITIES: No edema Labs/Diagnostic Data Labs Test 07/08/24 02:59 07/07/24 17:20 07/07/24 09:14 07/06/24 16:40 Range/Units Sodium Level 127 L 136-145 mmol/L Potassium Level 4.3 3.5-5.1 mmol/L Chloride Level 92 L 98-107 mmol/L Carbon Dioxide Level 24 20-31 mmol/L Anion Gap 11 5-15 Blood Urea Nitrogen 14 9-23 mg/dL Creatinine 0.51 L 0.700-1.30 mg/dL Glomerular Filtration Rate Calc 142 >90 mL/min BUN/Creatinine Ratio 27.5 H 10.0-20.0 Serum Glucose 111 H 74-106 mg/dL Calcium Level 10.0 8.7-10.4 mg/dL Total Bilirubin 5.8 H 0.2-1.0 mg/dL Aspartate Amino Transferase (AST) 59 H 13-40 U/L Alanine Aminotransferase (ALT) 57 H 7-40 U/L Alkaline Phosphatase 559 H 46-116 U/L Total Protein 7.2 5.7-8.2 g/dL Albumin 4.0 3.2-4.8 g/dL Urine Color Dark-yellow Yellow Urine Clarity Clear Clear Urine pH 7.5 5.0-9.0 Urine Specific [place] 1.020 1.001-1.035 Urine Protein 1+ H Negative Urine Ketones Negative Negative Urine Blood Negative Negative /uL Urine Nitrite Negative Negative Urine Bilirubin 1+ Negative Urine Urobilinogen 2 H Negative mg/dL Urine Leukocyte Esterase Negative Negative /uL Urine RBC <1 0 - 3 /hpf Urine Microscopic WBC 2 0-3 /HPF Urine Squamous Epithelial Cells None seen <5 /hpf Urine Bacteria None seen None Seen /hpf Urine Osmolality 440 mOsm/kg Urine Sodium 60 40-220 mmol/L Urine Glucose Normal Normal mg/dL White Blood Count 1.3 *L 4.4-10.8 10^3/uL Red Blood Count 2.72 L 4.5-5.90 10^6/uL Hemoglobin 7.3 L 13.5-17.5 g/dL Hematocrit 21.5 L 41.0-53.0 % Mean Corpuscular Volume 79.0 L 80.0-100.0 fL Mean Corpuscular Hemoglobin 26.8 L 28.0-32.0 pg Mean Corpuscular Hemoglobin Concent 33.9 32.0-36.0 g/dL Red Cell Distribution Width 17.8 H 11.8-14.3 % Platelet Count 207 140-450 10^3/uL Mean Platelet Volume 9.0 6.9-10.8 fL Neutrophils (%) (Auto) 37.0-80.0 % Lymphocytes (%) (Auto) 10.0-50.0 % Monocytes (%) (Auto) 0.0-12.0 % Basophils (%) (Auto) 0.0-2.0 % Neutrophils # (Auto) 1.6-8.6 10 ^3/uL Lymphocytes # (Auto) 0.4-5.4 10 ^3/uL Monocytes # (Auto) 0-1.3 10 ^3/uL Differential Total Cells Counted 100.0 100 Neutrophils % (Manual) 62 37.0-80.0 Band Neutrophils % (Manual) 11 Lymphocytes % (Manual) 21 10.0-50.0 Monocytes % (Manual) 6 0-12 Eosinophils % (Manual) 0 0-7 Basophils % (Manual) 0 0.0-2.0 Metamyelocytes % (manual) 0 Myelocytes % (Manual) 0 Promyelocytes % (Manual) 0 Blast Cells % (Manual) 0 Reactive Lymphocytes 0 Platelet Estimate Adequate Anisocytosis (manual) Slight Ovalocytes Few Stomatocytes Moderate Lactate Dehydrogenase 268 H 120-246 U/L Test 07/06/24 06:00 07/04/24 05:44 07/02/24 09:52 06/30/24 05:40 Range/Units Stool for White Cells None seen Smudge Cells 3 /100 WBC Magnesium Level 1.8 1.6-2.6 mg/dL Direct Bilirubin 6.2 H <0.3 mg/dL Microcytosis Slight Large Platelets Few Tear Drop Cells Few Test 06/29/24 05:55 06/28/24 06:00 06/27/24 21:50 06/27/24 12:23 Range/Units Giant Platelets Few Hypochromasia (manual) Slight Blood Gas Specimen Type Arterial Blood Gas Sample Site Left radial Blood Gas Patient Temperature 37.0 Arterial Blood Date Drawn [id number] Arterial Blood pH 7.535 H 7.350-7.450 Arterial Blood Partial Pressure CO2 28.6 L 35.0-48.0 mmHg Arterial Blood Partial Pressure O2 77.4 L 83.0-108.0 mmHg Arterial Blood HCO3 23.6 21.0-28.0 mmol/L Arterial Blood Oxygen Saturation 96.1 94.0-98.0 % Arterial Blood Base Excess 1.8 -2.0-3.0 mmol/L Arterial Blood Oxyhemoglobin 94.7 94.0-98.0 % Arterial Blood Carboxyhemoglobin 1.0 0.5-1.5 % Arterial Blood Methemoglobin 0.5 0.0-1.5 % Sam Test Modified Blood Gas Total Hemoglobin 11.90 L 13.5-17.5 g/dL Blood Gas Modality Room air FiO2 % 21.0 Miscellaneous Referred Test (Refrg) Sent to [facility] Test 06/27/24 05:35 06/26/24 16:36 06/26/24 16:32 06/26/24 05:27 Range/Units Prothrombin Time 10.0 9.3-11.8 sec Prothrombin Time INR 0.94 0.9-1.15 Ammonia 45 H 11-32 umol/L Creatine Kinase 291 H 46-171 U/L Eosinophils (%) (Auto) 0.1 0.0-7.0 % Eosinophils # (Auto) 0 0-0.8 10 ^3/uL Basophils # (Auto) 0 0-0.2 10 ^3/uL Absolute Neutrophils (auto) 1.7 1.4-7.0 x10E3/uL Absolute Lymphocytes (auto) 0.1 L 0.7-3.1 x10E3/uL Absolute Monocytes (auto) 0.3 0.1-0.9 x10E3/uL Absolute Eosinophils (auto) 0.0 0.0-0.4 x10E3/uL Absolute Basophils (auto) 0.0 0.0-0.2 x10E3/uL Immature Granulocytes % 2 Not Estab. % Immature Granulocytes # 0 0.0-0.1 x10E3/uL Nucleated Red Blood Cells 0.2 % Immature Blood Cells . Hematology Comments . Percent CD4 Cells 9.6 L 30.8-58.5 % Absolute CD4 Count 10 L 359-1519 /uL T-Lymphocyte CD4/CD8 Ratio 0.11 L 0.92-3.72 Percent CD8 Cells 88.2 H 12.0-35.5 % Absolute CD8 Count 88 L 109-897 /uL Cytomegalovirus IgG Antibody >10.00 H 0.00-0.59 U/mL Cytomegalovirus IgM Antibody <30.0 0.0-29.9 AU/mL Neha-Scott Virus Capsid Ag IgG Ab 301.0 H 0.0-17.9 U/mL Neha-Scott Virus Capsid Ag IgM Ab <36.0 0.0-35.9 U/mL Neha-Scott Early Antigen IgG Ab 64.6 H 0.0-17.9 U/mL Neha-Scott Virus Ab Interpret Comment . Urine Opiates Screen Pos NEGATIVE Urine Fentanyl Screen Neg NEGATIVE Urine Barbiturates Screen Neg NEGATIVE Urine Phencyclidine Screen Neg NEGATIVE Urine Amphetamines Screen Neg NEGATIVE Urine Benzodiazepines Screen Neg NEGATIVE Urine Cocaine Screen Neg NEGATIVE Urine Cannabinoids Screen Neg NEGATIVE Reticulocyte Count (auto) 0.18 L 0.5-1.5 % Haptoglobin <10 L 17-317 mg/dL Ferritin > 3300.0 H 22-322 ng/mL Test 06/25/24 14:55 06/25/24 10:34 06/25/24 01:08 06/24/24 23:47 Range/Units Acetaminophen Level 6.0 L 10.0-20.0 UG/ML Plasma/Serum Blood Alcohol < 3.0 <10 mg/dL B-Type Natriuretic Peptide 17.98 0-100 pg/mL Hepatitis A IgM Antibody Negative Hepatitis B Surface Antigen Negative Negative Hepatitis B Core IgM Antibody Negative Negative Hepatitis C Antibody Negative Negative POC Glucose 149 H 70-106 mg/dl Test 06/23/24 21:41 06/23/24 09:52 06/23/24 09:13 06/20/24 12:50 Range/Units Troponin I High Sensitivity 10 </=54 ng/L Uric Acid 3.3 L 3.7-9.2 mg/dL Urine WBC 1 0 - 3 /hpf TB Test (QFT) Gold Plus Indeterminate H Negative TB Test (QFT) Nil >10.00 . IU/mL TB Test (QFT) Mitogen >10.00 . IU/mL TB Test (QFT) Antigen 1 >10.00 . IU/mL TB Test (QFT) Antigen 2 >10.00 . IU/mL TB Test (QFT) Criteria Comment . Test 06/19/24 05:41 06/12/24 20:52 06/12/24 09:00 06/12/24 05:40 Range/Units Serum Osmolality 269 L 278-298 mOsm/kg Urine Mucus Few None Seen Lactic Acid Level 0.8 0.4-2.0 mmol/L Activated Partial Thromboplast Time 29.3 24.5-34.5 SEC Test 06/11/24 13:10 06/09/24 23:22 06/09/24 10:26 06/08/24 11:16 Range/Units D-Dimer, Quantitative 1.49 H 0.0-0.49 mg/L FEU Legionella pneumophila S1-6 Abs Non reactive Non Reactive Mycoplasma pneumoniae IgG Antibody 395 H 0-99 U/mL Mycoplasma pneumoniae IgM Antibody <770 0-769 U/mL HIV-1 Antibody Confirmation Reactive Non Reactive HIV-2 Antibody Confirmation Non reactive Non Reactive HIV (1&2) Ag and Ab, 4th Generation Preliminary reactive Non Reactive HIV (1&2) Antibody Deferred Negative HIV (1&2) Antibody Interpretation Hiv-1 positive H . HIV-1 RNA (PCR) . copies/mL HIV-1 RNA (PCR) log10 Value 6.294 . Microbiology Date/Time Source Procedure Growth Status 07/06/24 17:06 Voided Urine Urine Culture - Preliminary Resulted 07/06/24 12:50 Blood Blood Culture - Preliminary NO GROWTH AFTER 24 HOURS OF INCUBATION. Resulted 07/02/24 20:23 Stool Stool Culture - Preliminary Resulted 07/02/24 20:23 Stool Shiga Toxin I & II - Final Resulted 06/29/24 06:30 Sputum AFB Broth Culture Pending Resulted 06/29/24 06:30 Sputum - Final Resulted 06/29/24 06:30 Sputum - Final Resulted 06/29/24 06:30 Sputum Acid Fast Bacilli Culture Pending Resulted 06/21/24 14:30 Nose MRSA Screen - Final Complete Assessment Leukopenia - The reduction in blood counts may be multifactorial, potentially related to HIV-associated bone marrow suppression, opportunistic infections affecting the bone marrow, or drug-inducted cytopenia (such as Bactrim). The necessity for a bone marrow biopsy was highlighted to identify the etiology. - Bactrim induced bone marrow suppression can occur with prolonged use or in patients to develop renal impairment. - Lastly, may also be secondary to nutritional deficiencies, such as B12 and folate deficiency. Anemia Anemia may be secondary to red cell aplasia from parvovirus (gin low reticulocyte count) vs anemia of chronic disease. New diagnosis of HIV Viral load: PCP Pneumonia Hyponatremia SIADH Liver dysfunctional . Plan/Recommendation Obtain peripheral flow cytometry. Would repeat LDH, reticulocyte count, haptoglobin, and check Jg and a peripheral smear. Check vitamin B12 and folate, and iron studies. Check Parvovirus B19 PCR/IgM/IgG Would consider bone marrow biopsy if cytopenias progress or persist, to rule out an underlying hematologic disorder or opportunistic infections. Transfuse PRBC if hemoglobin less than 7. Nursing staff to investigate whether patient's ART that is available for pick-up at pharmacy, as per patient. Plan discussed with: Patient BIJAN NAIR MD Jul 08, 2024 10:18
[2024-07-08] MEDS ORDERED: VANCOMYCIN PER PHARMACY 0 MG IV SCH (13:00)
[2024-07-08] MEDS: VANCOMYCIN 1GM/250ML KIT 250 ML IV SCH (14:18)
--- NOTE | 2024-07-08 19:00 | DVHPN2 ---
Progress Note Date Seen: Jul 08, 2024 Has the PT tested + for MRSA If YES, has PT been informed?: Yes Medical Necessity Reason Pt with a Central, PICC or Fol: No Objective vital signs Vital Sign Date Time Temp Pulse Resp B/P (MAP) Pulse Ox O2 Delivery O2 Flow Rate FiO2 07/08/24 18:45 98.3 119 20 95 98.3 07/08/24 17:32 Room Air* 0 21 Total Intake and Output 07/07/24 07/07/24 07/08/24 15:00 23:00 07:00 Intake Total 161.25 ml 400 ml 202.50 ml Output Total 310 ml 690 ml Balance 161.25 ml 90 ml -487.50 ml medications Current Medications Medications Dose Ordered Sig/Sean Route Start Time Stop Time Status Last Admin Dose Admin Guaifenesin/ Dextromethorphan 10 ml Q4HP PRN PO 06/08/24 11:00 06/26/24 09:32 10 ML Morphine Sulfate 1 mg Q4HPRN PRN IV 06/16/24 14:00 07/01/24 15:14 1 MG Ondansetron HCl 4 mg Q4HP PRN IV 06/21/24 16:00 07/02/24 00:49 4 MG Metoclopramide HCl 10 mg Q8HPRN PRN IV 06/21/24 16:00 07/02/24 04:23 10 MG Diphenhydramine HCl 25 mg Q6HP PRN PO 06/21/24 17:00 07/05/24 23:37 25 MG Nystatin 5 ml QID MT 06/27/24 12:00 07/08/24 18:06 5 ML Carbamide Peroxide 5 drop Q12HR EACH EAR 06/27/24 10:00 07/06/24 11:04 5 DROP Pantoprazole Sodium 40 mg DAILY@0600 PO 06/29/24 06:00 07/08/24 06:05 40 MG Ursodiol 300 mg BID PO 06/28/24 22:00 07/08/24 08:43 300 MG Morphine Sulfate 2 mg Q4HPRN PRN IV 06/29/24 16:45 Potassium Bicarbonate 25 meq DAILY PO 07/02/24 10:00 07/08/24 08:47 25 MEQ Docusate Sodium 200 mg DAILYPRN PRN PO 07/02/24 14:30 Artificial Tears 1 drop Q6HP PRN EACHEYE 07/03/24 14:00 07/04/24 05:19 1 DROP Metoprolol Tartrate 50 mg BID PO 07/04/24 22:00 07/06/24 11:04 50 MG Sodium Chloride 2 gm BID PO 07/04/24 14:15 07/08/24 08:44 2 GM Furosemide 60 mg DAILY PO 07/04/24 14:15 07/08/24 08:42 60 MG Enteral Nutritional Formula 240 ml TIDWM PO 07/06/24 08:00 07/08/24 17:44 240 ML Norepinephrine Bitartrate 250 ml @ 3.75 mls/hr Q24H IV 07/06/24 19:00 07/06/24 21:35 3.75 MLS/HR Patient Own Medication 30 mg DAILY PO 07/09/24 10:00 Acetaminophen 650 mg Q6HP PRN PO 07/07/24 17:30 07/08/24 18:06 650 MG Vancomycin HCl 0 ml @ 0 mls/hr UD IV 07/08/24 13:00 Vancomycin HCl 250 ml @ 250 mls/hr Q8H IV 07/08/24 14:00 07/08/24 14:18 250 MLS/HR Examination: GENERAL:Abnormal, CVS:Abnormal, ABDOMEN:Abnormal laboratory and microbiology Laboratory Tests 07/08/24 02:59 07/07/24 09:14 Test 07/08/24 02:59 Range/Units Serum Glucose 111 H 74-106 mg/dL Microbiology Date/Time Source Procedure Growth Status 07/07/24 06:10 Sputum Gram Stain - Final Resulted 07/07/24 06:10 Sputum Respiratory Culture - Preliminary Resulted 07/06/24 17:06 Voided Urine Urine Culture - Final Enterococcus faecalis Complete 07/06/24 12:50 Blood Blood Culture - Preliminary NO GROWTH AFTER 48 HOURS OF INCUBATION. 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 Fluid restriction Sodium chloride and lasix ID consult Plan discussed with: Patient Dietary Evaluation Review Comments: Encourage and monitor PO intake to meet 75% of his needs Expected Outcomes/Goals: free from symptoms, gradual weight gain. BELL BLANK MD Jul 08, 2024 19:00
--- NOTE | 2024-07-08 21:02 | DVHPN2 ---
Progress Note - Dictate Date Seen: Jul 08, 2024 Has the PT tested + for MRSA If YES, has PT been informed?: Yes Medical Necessity Reason Pt with a Central, PICC or Fol: No Subjective Overnight patient was hypotensive. He was transferred to ICU. He required brief pressors. He has fever. vital signs Vital Sign Date Time Temp Pulse Resp B/P (MAP) Pulse Ox O2 Delivery O2 Flow Rate FiO2 07/08/24 18:45 98.3 119 20 95 98.3 07/08/24 17:32 Room Air* 0 21 Total Intake and Output 07/07/24 07/07/24 07/08/24 15:00 23:00 07:00 Intake Total 161.25 ml 400 ml 202.50 ml Output Total 310 ml 690 ml Balance 161.25 ml 90 ml -487.50 ml medications Current Medications Medications Dose Ordered Sig/Sean Route Start Time Stop Time Status Last Admin Dose Admin Guaifenesin/ Dextromethorphan 10 ml Q4HP PRN PO 06/08/24 11:00 06/26/24 09:32 10 ML Morphine Sulfate 1 mg Q4HPRN PRN IV 06/16/24 14:00 07/01/24 15:14 1 MG Ondansetron HCl 4 mg Q4HP PRN IV 06/21/24 16:00 07/02/24 00:49 4 MG Metoclopramide HCl 10 mg Q8HPRN PRN IV 06/21/24 16:00 07/02/24 04:23 10 MG Diphenhydramine HCl 25 mg Q6HP PRN PO 06/21/24 17:00 07/05/24 23:37 25 MG Nystatin 5 ml QID MT 06/27/24 12:00 07/08/24 18:06 5 ML Carbamide Peroxide 5 drop Q12HR EACH EAR 06/27/24 10:00 07/06/24 11:04 5 DROP Pantoprazole Sodium 40 mg DAILY@0600 PO 06/29/24 06:00 07/08/24 06:05 40 MG Ursodiol 300 mg BID PO 06/28/24 22:00 07/08/24 08:43 300 MG Morphine Sulfate 2 mg Q4HPRN PRN IV 06/29/24 16:45 Potassium Bicarbonate 25 meq DAILY PO 07/02/24 10:00 07/08/24 08:47 25 MEQ Docusate Sodium 200 mg DAILYPRN PRN PO 07/02/24 14:30 Artificial Tears 1 drop Q6HP PRN EACHEYE 07/03/24 14:00 07/04/24 05:19 1 DROP Metoprolol Tartrate 50 mg BID PO 07/04/24 22:00 07/06/24 11:04 50 MG Sodium Chloride 2 gm BID PO 07/04/24 14:15 07/08/24 08:44 2 GM Furosemide 60 mg DAILY PO 07/04/24 14:15 07/08/24 08:42 60 MG Enteral Nutritional Formula 240 ml TIDWM PO 07/06/24 08:00 07/08/24 17:44 240 ML Norepinephrine Bitartrate 250 ml @ 3.75 mls/hr Q24H IV 07/06/24 19:00 07/06/24 21:35 3.75 MLS/HR Patient Own Medication 30 mg DAILY PO 07/09/24 10:00 Acetaminophen 650 mg Q6HP PRN PO 07/07/24 17:30 07/08/24 18:06 650 MG Vancomycin HCl 0 ml @ 0 mls/hr UD IV 07/08/24 13:00 Vancomycin HCl 250 ml @ 250 mls/hr Q8H IV 07/08/24 14:00 07/08/24 14:18 250 MLS/HR objective General Appearance: Alert, Oriented X3, Cooperative, No acute distress HEENT: Atraumatic Respiratory: Other (Scattered crackles; good air entry bilateral) Cardiovascular: Regular rate, Normal S1, Normal S2 Abdominal: Normal bowel sounds, Soft, No tenderness Neuro: Normal gait, Normal speech, Strength at 5/5 X4 ext, Normal tone, Sensation intact, Cranial nerves 3-12 NL, Reflexes 2+ Psych/Mental Status: Mental status NL, Mood NL laboratory and microbiology Laboratory Tests 07/08/24 02:59 07/07/24 09:14 Test 07/08/24 02:59 Range/Units Serum Glucose 111 H 74-106 mg/dL Assessment/Plan Patient is a 28-year-old male with Fever Hypotensive Enterococcus Feacalis UTI elevated liver enzymes elevated bilirubin ? AIDS cholangiopathy / TMP-SMX prolonged cholangiopathy # hyponatremia SIADH AIDS Pneumocystis Jerovoci or Carini Pneumonia ( opportunistic infection) multifocal pneumonia: atypical in nature Possible PCP pneumonia pulmonary nodule Homosexual elevated LFT anemia Immunosuppressed Recommendations: Dc Vancomycin and Clindamycin. Switched to IV Ampicillin for E.faecalis UTI, Plan for 5 days Ordered COVID and Flu screen MRI brain reviewed, no acute abnormality Patient is off pressor From tomorrow 07/09, please contact Dr Junior Guzman for recommendations. I will sign off patient to him for coverage. also order Biktarvy, n lets see if he can tolerate it https://pmc.ncbi.nlm.nih.gov/articles/FSV6745029/ "Severe and Prolonged Cholestasis Caused by Trimethoprim-Sulfamethoxazole: A Case Report" There are case reports of severe and prolonged cholestasis caused by BActrim which has lasted up to months In Ajay Cardona's case, its likely related to Bactrim as it started after IV Bactrim however there is possibility of AIDS cholangiopathy Recommend Liver biopsy as most of the other work up as remained negative for cholangiopathy. Sometimes these patient may develop Duct vanishing syndrome ( ductopenia) secondary to Bactrim as per the literature Navi F, Pal CA, Margoth S, Li S, Newsome M, Leonard KD. Tdvdyctmxuyk-lyefnhgvxcqziqor-plyoqhv vanishing bile duct syndrome. Am J Gastroenterol. 1997; In such scenario, they may need liver transplant. GI is on board, recommend further management CMV/ EBV less likely as IgM is negative, however can check PCR level, there might be low level viremia. will send PCR reviewed stool studies neg, pending OVA and parasite as recommended by GI Bactrim treatment on hold. I would not recommend prophylaxis with bactrim either due to Liver injury. send g6pd test for alternative rx option for PCP Pneumonia 07/02, Stool culture Preliminary showed: Many growth: Gram Positive Karina. No Normal Enteric Karina. No Campylobacter antigen detected Shiga Toxin 1: Negative Shiga Toxin 2: Negative Urine opiates screen is positive stop date of bactrim was 07/04/2024,and severe hyponatremia, nephrology on board 06/25, Sputum culture pending AFB stain is negative x3 neg follow Quantiferon gold, indeterminate HIV-1 RNA [PCR]: [id number]: needs ART therapy Prognosis guarded Critical Time: 35 minutes Thank you for consult Dietary Evaluation Review Comments: Encourage and monitor PO intake to meet 75% of his needs Expected Outcomes/Goals: free from symptoms, gradual weight gain. Plan discussed with: HOMERO Gray MD Jul 08, 2024 21:02
--- NOTE | 2024-07-08 22:37 | DVHPN2 ---
Progress Note - Dictate Date Seen: Jul 08, 2024 Has the PT tested + for MRSA If YES, has PT been informed?: Yes Medical Necessity Reason Pt with a Central, PICC or Fol: No Subjective Patient seen and examined at bedside. On room air Overnight events reviewed. vital signs Vital Sign Date Time Temp Pulse Resp B/P (MAP) Pulse Ox O2 Delivery O2 Flow Rate FiO2 07/08/24 18:45 98.3 119 20 95 98.3 07/08/24 17:32 Room Air* 0 21 Total Intake and Output 07/07/24 07/07/24 07/08/24 15:00 23:00 07:00 Intake Total 161.25 ml 400 ml 202.50 ml Output Total 310 ml 690 ml Balance 161.25 ml 90 ml -487.50 ml medications Current Medications Medications Dose Ordered Sig/Sean Route Start Time Stop Time Status Last Admin Dose Admin Guaifenesin/ Dextromethorphan 10 ml Q4HP PRN PO 06/08/24 11:00 06/26/24 09:32 10 ML Morphine Sulfate 1 mg Q4HPRN PRN IV 06/16/24 14:00 07/01/24 15:14 1 MG Ondansetron HCl 4 mg Q4HP PRN IV 06/21/24 16:00 07/02/24 00:49 4 MG Metoclopramide HCl 10 mg Q8HPRN PRN IV 06/21/24 16:00 07/02/24 04:23 10 MG Diphenhydramine HCl 25 mg Q6HP PRN PO 06/21/24 17:00 07/05/24 23:37 25 MG Nystatin 5 ml QID MT 06/27/24 12:00 07/08/24 22:04 5 ML Carbamide Peroxide 5 drop Q12HR EACH EAR 06/27/24 10:00 07/08/24 22:04 5 DROP Pantoprazole Sodium 40 mg DAILY@0600 PO 06/29/24 06:00 07/08/24 06:05 40 MG Ursodiol 300 mg BID PO 06/28/24 22:00 07/08/24 22:04 300 MG Morphine Sulfate 2 mg Q4HPRN PRN IV 06/29/24 16:45 Potassium Bicarbonate 25 meq DAILY PO 07/02/24 10:00 07/08/24 08:47 25 MEQ Docusate Sodium 200 mg DAILYPRN PRN PO 07/02/24 14:30 Artificial Tears 1 drop Q6HP PRN EACHEYE 07/03/24 14:00 07/04/24 05:19 1 DROP Metoprolol Tartrate 50 mg BID PO 07/04/24 22:00 07/06/24 11:04 50 MG Sodium Chloride 2 gm BID PO 07/04/24 14:15 07/08/24 22:04 2 GM Furosemide 60 mg DAILY PO 07/04/24 14:15 07/08/24 08:42 60 MG Enteral Nutritional Formula 240 ml TIDWM PO 07/06/24 08:00 07/08/24 17:44 240 ML Norepinephrine Bitartrate 250 ml @ 3.75 mls/hr Q24H IV 07/06/24 19:00 07/06/24 21:35 3.75 MLS/HR Patient Own Medication 30 mg DAILY PO 07/09/24 10:00 Acetaminophen 650 mg Q6HP PRN PO 07/07/24 17:30 07/08/24 18:06 650 MG Ampicillin Sodium 1 gm/Sodium Chloride 100 ml @ 200 mls/hr Q6HR IV 07/09/24 00:00 objective Gen.: Patient lying in bed in no apparent distress. On room air Head: Normocephalic, atraumatic. Eyes: EOMI/PERRLA. Ears: Normal hearing. Normal anatomy. Neck/trachea: Trachea midline, supple. Nose: Normal external anatomy. Mouth: Moist mucous membranes. Chest: Decreased air entry bilaterally. No wheezing or rhonchi. Cardiovascular: Positive S1, positive S2. Regular rate and rhythm. Abdomen: Positive bowel sounds in all 4 quadrants. Soft, non-tender, non- distended. : Deferred. Rectal: Deferred. Skin: Warm, dry. Intact. Extremities: 2+ radial pulses bilaterally. No lower extremity edema. Neuro: Awake, alert, oriented x3. No gross motor or sensory deficits. Cranial nerves II through XII intact. Gait not assessed. laboratory and microbiology Laboratory Tests 07/08/24 02:59 07/07/24 09:14 Test 07/08/24 02:59 Range/Units Serum Glucose 111 H 74-106 mg/dL Assessment/Plan Impression: Cough HIV (recent diagnosis) Anemia Elevated LFTs Atypical pneumonia SIADH Events: Remains on room air Supplemental oxygen PRN Off pressors, hemodynamically stable. On neutropenic precautions. ID recommendations appreciated Awaiting for HIV meds. Diarrhea IV fluid restriction to 1 L. Continue antibiotics - vancomycin Continue antifungal Nystatin suspension Continue ursodiol Monitor WBC. Incentive spirometry Lasix for diuresis Monitor renal function Continue to monitor electrolytes closely - supplement as necessary Monitor sodium d/t hyponatremia 125 - on sodium chloride tabs Monitor potassium Nephrology recommendations appreciated Antiemetics PRN. GI recs appreciated. Stool O&P test negative DVT prophylaxis w/ Lovenox Patient is stable for discharge from the pulmonary standpoint Disposition per hospitalist Labs reviewed. Rest of plan as noted below Plan: On room air Supplemental oxygen PRN Titrate to keep O2 sats above 92%. 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 TB negative ID recommendations appreciated. Monitor renal function. Monitor electrolytes. Supplement as necessary. Monitor ins and outs. DVT prophylaxis. Prognosis: Poor given patient's multiple co-morbidities. Condition: Critical Rest of plan per hospitalist and other consultants. A total of 35 minutes of critical care time was spent reviewing the patient record, examining the patient, making a diagnostic and therapeutic plan, discussing this plan with the medical personnel, following up on diagnostic studies and following the patient for clinical stability excluding any and all procedures. At least 50% of this time was spent in direct, [id number] contact. Thank you Dr. Cruz, for allowing me to participate in this patient's care. Further recommendations will depend on the patient's clinical course. Please do not hesitate to contact me if you have any questions or concerns. This medical document was created using an electronic medical record system with [employer] system. Although these documentations are being carefully reviewed, there may still be some phonetic and typographical changes. The errors are purely typographical, due to imperfection on the software program, and do not reflect any compromise in the patient's medical care. Dietary Evaluation Review Comments: Encourage and monitor PO intake to meet 75% of his needs Expected Outcomes/Goals: free from symptoms, gradual weight gain. Plan discussed with: Patient, Other (AALIYAH Brooke) Critical Care Time(min): 35 ANGELIC OTOOLE MD Jul 08, 2024 22:37
[2024-07-09] VITALS (54 sets, daily range): BP systolic 88–130; BP diastolic 43–73; PULSE 109–136; RESP 15–27; TEMP 98.4–99.2; O2SAT 93–100
[2024-07-09] MEDS: AMPICILLIN INJ 1 GM in SODIUM CHL 0.9% 100 ML IV SCH
[2024-07-09 01:26] LABS: COVID19 ANTIGEN SOFIA FIA NEGATIVE (NEGATIVE); Rapid Influenza A Negative (Negative); Rapid Influenza B Negative (Negative)
[2024-07-09 04:12] LABS: Hematocrit 22.5 % (41.0-53.0); Hemoglobin 7.6 g/dL (13.5-17.5); Mean Corpuscular Hemoglobin 26.9 pg (28.0-32.0); Mean Corpuscular Hgb Conc. 33.6 g/dL (32.0-36.0); Mean Corpuscular Volume 79.9 fL (80.0-100.0); Platelet Count (auto) 278 10^3/uL (140-450); Red Blood Cells 2.81 10^6/uL (4.5-5.90); Red Cell Distribution Width 18.3 % (11.8-14.3)
[2024-07-09 04:28] LABS: Basophils % (manual) 0 (0.0-2.0); Blast Cells 0; Myelocytes % 0; Promyelocytes % 0; Reactive Lymphocytes 0
[2024-07-09 04:29] LABS: Anion Gap 9 (5-15); BUN/Creatinine Ratio 26.9 (10.0-20.0); Blood Urea Nitrogen 18 mg/dL (9-23); Calcium 9.9 mg/dL (8.7-10.4); Carbon Dioxide 26 mmol/L (20-31); Potassium 4.3 mmol/L (3.5-5.1)
[2024-07-09 04:30] LABS: Albumin 3.9 g/dL (3.2-4.8); Total Protein 7.1 g/dL (5.7-8.2)
[2024-07-09 04:42] LABS: Alanine Aminotransferase 54 U/L (7-40); Alkaline Phosphatase 583 U/L (46-116); Aspartate Aminotransferase 63 U/L (13-40); Bilirubin, Total 6.1 mg/dL (0.2-1.0); Chloride 93 mmol/L (98-107); Glucose 109 mg/dL (74-106); Sodium 128 mmol/L (136-145)
[2024-07-09 05:28] LABS: Band Neutrophils % (manual) 3; Eosinophils % (manual) 1 (0-7); Metamyelocytes % 1; Monocytes % (manual) 15 (0-12)
[2024-07-09 05:29] LABS: Anisocytosis Slight; Large Platelets FEW; Lymphocytes % (manual) 8 (10.0-50.0); Ovalocytes FEW; Platelet Estimate Adequate; Stomatocytes Few
[2024-07-09 05:30] LABS: Giant Platelets Few
--- NOTE | 2024-07-09 09:25 | DVHPN2 ---
Progress Note Date Seen: Jul 09, 2024 Resident Creating Document: MING VALENTIN RESIDENT Has the PT tested + for MRSA If YES, has PT been informed?: Yes Medical Necessity Reason Pt with a Central, PICC or Fol: No Subjective Review of Systems Patient seen and examined in the ICU. Patient was transferred to ICU given hypotension, was started on norepinephrine 2 mcg over the weekend. Abdomen is soft, nontender. Off Levophed. T-max 100.5 F. 1 bowel movement which was formed. No active issues. Objective vital signs Vital Sign Date Time Temp Pulse Resp B/P (MAP) Pulse Ox O2 Delivery O2 Flow Rate FiO2 07/09/24 06:30 116 19 109/57 (74) 96 07/09/24 06:00 Room Air* 0 21 07/09/24 04:00 98.8 98.8 Total Intake and Output 07/08/24 07/08/24 07/09/24 15:00 23:00 07:00 Intake Total 305.0 ml 600 ml 300 ml Output Total 800 ml 450 ml Balance 305.0 ml -200 ml -150 ml medications Current Medications Medications Dose Ordered Sig/Sean Route Start Time Stop Time Status Last Admin Dose Admin Guaifenesin/ Dextromethorphan 10 ml Q4HP PRN PO 06/08/24 11:00 06/26/24 09:32 10 ML Morphine Sulfate 1 mg Q4HPRN PRN IV 06/16/24 14:00 07/01/24 15:14 1 MG Ondansetron HCl 4 mg Q4HP PRN IV 06/21/24 16:00 07/02/24 00:49 4 MG Metoclopramide HCl 10 mg Q8HPRN PRN IV 06/21/24 16:00 07/02/24 04:23 10 MG Diphenhydramine HCl 25 mg Q6HP PRN PO 06/21/24 17:00 07/05/24 23:37 25 MG Nystatin 5 ml QID MT 06/27/24 12:00 07/09/24 05:48 5 ML Carbamide Peroxide 5 drop Q12HR EACH EAR 06/27/24 10:00 07/08/24 22:04 5 DROP Pantoprazole Sodium 40 mg DAILY@0600 PO 06/29/24 06:00 07/09/24 05:48 40 MG Ursodiol 300 mg BID PO 06/28/24 22:00 07/08/24 22:04 300 MG Morphine Sulfate 2 mg Q4HPRN PRN IV 06/29/24 16:45 Potassium Bicarbonate 25 meq DAILY PO 07/02/24 10:00 07/08/24 08:47 25 MEQ Docusate Sodium 200 mg DAILYPRN PRN PO 07/02/24 14:30 Artificial Tears 1 drop Q6HP PRN EACHEYE 07/03/24 14:00 07/04/24 05:19 1 DROP Metoprolol Tartrate 50 mg BID PO 07/04/24 22:00 07/06/24 11:04 50 MG Sodium Chloride 2 gm BID PO 07/04/24 14:15 07/08/24 22:04 2 GM Furosemide 60 mg DAILY PO 07/04/24 14:15 07/08/24 08:42 60 MG Enteral Nutritional Formula 240 ml TIDWM PO 07/06/24 08:00 07/08/24 17:44 240 ML Norepinephrine Bitartrate 250 ml @ 3.75 mls/hr Q24H IV 07/06/24 19:00 07/06/24 21:35 3.75 MLS/HR Patient Own Medication 30 mg DAILY PO 07/09/24 10:00 Acetaminophen 650 mg Q6HP PRN PO 07/07/24 17:30 07/08/24 18:06 650 MG Ampicillin Sodium 1 gm/Sodium Chloride 100 ml @ 200 mls/hr Q6HR IV 07/09/24 00:00 Examination Patient lying in bed, in no acute distress General: Well-built, afebrile, palor, mucosae are moist Cardiovascular: Regular S1 and S2. No murmurs, gallops or rubs. No JVD elevation. No pedal edema Respiratory: Normal B/L air entry on room air. Clear lung sounds on auscultation Abdomen: Soft, distended nontender to superficial touch, normoactive bowel sounds, no rebound tenderness, no organomegaly, no masses Genitourinary: Deferred MSK/skin: Mobilizes 4 limbs. Skin is dry and warm Neurological: No motor, no sensitive deficits, normal speech. Pupils are isocoric and reactive. Psych/Mental Status: A/Ox4 laboratory and microbiology Laboratory Tests 07/09/24 03:30 Test 07/09/24 03:30 Range/Units Serum Glucose 109 H 74-106 mg/dL Microbiology Date/Time Source Procedure Growth Status 07/07/24 06:10 Sputum Gram Stain - Final Resulted 07/07/24 06:10 Sputum Respiratory Culture - Preliminary Resulted 07/06/24 17:06 Voided Urine Urine Culture - Final Enterococcus faecalis Complete 07/06/24 12:50 Blood Blood Culture - Preliminary NO GROWTH AFTER 48 HOURS OF INCUBATION. Resulted 07/02/24 20:23 Stool Stool Culture - Preliminary Resulted 07/02/24 20:23 Stool Shiga Toxin I & II - Final Resulted 06/21/24 14:30 Nose MRSA Screen - Final Complete Labs and/or images reviewed: Labs reviewed by me, Image(s) reviewed by me Problem List/Assessment/Plan Problem List/Assessment/Plan Transaminitis, negative hepatitis panel, MRCP negative ? 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 no filling defects. Plan: Stool sample sent for studies. Follow up with the ova and parasite. Stool WBC negative. Antibiotics per primary team LFTs are stable. Consider stool studies for Cryptosporidium and isospora Continue supportive care Pantoprazole 40 mg daily LFTs trending down Patient will be started on to Biktarvy as an outpatient Avoid NSAIDs Plan discussed with patient in which all questions have been answered Case discussed with Dr. Robins Plan discussed with: Patient Dietary Evaluation Review Comments: Encourage and monitor PO intake to meet 75% of his needs Expected Outcomes/Goals: free from symptoms, gradual weight gain. MING VALENTIN RESIDENT Jul 09, 2024 09:25
[2024-07-09] MEDS ORDERED: PRIMAQUINE PO SCH (10:00)
[2024-07-09] MEDS: PRIMAQUINE PO SCH (11:29)
[2024-07-09] MEDS: GADOTERATE MEG 10 MMOL/20ml INJ (0.5MMOL/ml) IV ONE (11:46)
--- NOTE | 2024-07-09 15:46 | DVHPN2 ---
Progress Note Date Seen: Jul 09, 2024 Has the PT tested + for MRSA If YES, has PT been informed?: Yes Medical Necessity Reason Pt with a Central, PICC or Fol: No Subjective Patient reports: No new complaints, Feels better, Other (Seen in ICU with RN bedside) Review of Systems: HEENT:Normal, CVS:Normal, RESPIRATORY:Normal, GI:Normal, :Normal, MSK:Normal, NEURO:Normal Objective vital signs Vital Sign Date Time Temp Pulse Resp B/P (MAP) Pulse Ox O2 Delivery O2 Flow Rate FiO2 07/09/24 15:00 126 24 121/70 (87) 96 07/09/24 14:00 Room Air* 0 21 07/09/24 04:00 98.8 98.8 Total Intake and Output 07/08/24 07/08/24 07/09/24 14:59 22:59 06:59 Intake Total 308.75 ml 600 ml 300 ml Output Total 800 ml 450 ml Balance 308.75 ml -200 ml -150 ml medications Current Medications Medications Dose Ordered Sig/Sean Route Start Time Stop Time Status Last Admin Dose Admin Guaifenesin/ Dextromethorphan 10 ml Q4HP PRN PO 06/08/24 11:00 06/26/24 09:32 10 ML Morphine Sulfate 1 mg Q4HPRN PRN IV 06/16/24 14:00 07/01/24 15:14 1 MG Ondansetron HCl 4 mg Q4HP PRN IV 06/21/24 16:00 07/02/24 00:49 4 MG Metoclopramide HCl 10 mg Q8HPRN PRN IV 06/21/24 16:00 07/02/24 04:23 10 MG Diphenhydramine HCl 25 mg Q6HP PRN PO 06/21/24 17:00 07/05/24 23:37 25 MG Nystatin 5 ml QID MT 06/27/24 12:00 07/09/24 12:00 5 ML Carbamide Peroxide 5 drop Q12HR EACH EAR 06/27/24 10:00 07/09/24 10:00 5 DROP Pantoprazole Sodium 40 mg DAILY@0600 PO 06/29/24 06:00 07/09/24 05:48 40 MG Ursodiol 300 mg BID PO 06/28/24 22:00 07/09/24 10:44 300 MG Morphine Sulfate 2 mg Q4HPRN PRN IV 06/29/24 16:45 Docusate Sodium 200 mg DAILYPRN PRN PO 07/02/24 14:30 Artificial Tears 1 drop Q6HP PRN EACHEYE 07/03/24 14:00 07/04/24 05:19 1 DROP Sodium Chloride 2 gm BID PO 07/04/24 14:15 07/09/24 10:44 2 GM Enteral Nutritional Formula 240 ml TIDWM PO 07/06/24 08:00 07/09/24 12:00 240 ML Acetaminophen 650 mg Q6HP PRN PO 07/07/24 17:30 07/08/24 18:06 650 MG Ampicillin Sodium 1 gm/Sodium Chloride 100 ml @ 200 mls/hr Q6HR IV 07/09/24 00:00 07/09/24 12:00 200 MLS/HR laboratory and microbiology Laboratory Tests 07/09/24 03:30 Test 07/09/24 03:30 Range/Units Serum Glucose 109 H 74-106 mg/dL Microbiology Date/Time Source Procedure Growth Status 07/07/24 06:10 Sputum Gram Stain - Final Resulted 07/07/24 06:10 Sputum Respiratory Culture - Preliminary Resulted 07/06/24 17:06 Voided Urine Urine Culture - Final Enterococcus faecalis Complete 07/06/24 12:50 Blood Blood Culture - Preliminary NO GROWTH AFTER 72 HOURS OF INCUBATION. Resulted 07/02/24 20:23 Stool Stool Culture - Preliminary Resulted 07/02/24 20:23 Stool Shiga Toxin I & II - Final Resulted 06/21/24 14:30 Nose MRSA Screen - Final Complete Problem List/Assessment/Plan Problem List/Assessment/Plan hyponatremia SIADH plus IV Bactrim use recently hyperkalemia AIDS PCP on bactrim IV now switched to p.o. PNA leukopenia Recommendations Fluid restriction Sodium stable We will follow closely Currently on salt tablets Plan discussed with: Patient Dietary Evaluation Review Comments: Encourage and monitor PO intake to meet 75% of his needs Expected Outcomes/Goals: free from symptoms, gradual weight gain. BAILEE WATTERS MD Jul 09, 2024 15:46
[2024-07-09] MEDS ORDERED: VANCOMYCIN PER PHARMACY 0 MG IV SCH (18:00)
[2024-07-09] MEDS: VANCOMYCIN 1GM/250ML KIT 250 ML IV SCH (19:00)
--- NOTE | 2024-07-09 19:27 | DVHINCON2 ---
ELVA VU RESIDENT 07/09/24 1927: Date of service: Jul 09, 2024 Referring Physician Jj BRAXTON Reason for Consultation PCP pneumonia/HIV History of Present Illness Patient is 28-year-old male who was recently diagnosed with HIV and bilateral infiltrates at [facility] who transferred to [facility] for pulmonology and Infectious Disease evaluation. Patient admitted on 06/08/2024. Initially patient came to the hospital with a chief complaint of shortness of breath, fever, chills, weight loss which initially require oxygen via nasal cannula, patient underwent bronchoscopy on 06/12/2024 which microbiologic came positive for PCP, negative for acid-fast bacilli, initially patient was given ceftriaxone azithromycin, L patient transitioned to IV Bactrim for covering PCP pneumonia. Patient received total seven days of IV/oral Bactrim, given worsening liver function tests, Bactrim was discontinued. Given CV neutropenia and higher viral load of HIV, and possible infection associated with acid-fast bacilli, fungus, three acid-fast bacilli smear negative, two acid-fast bacilli PCR negative, one culture came positive for acid-fast bacilli pending further evaluation. Currently patient is on room air, not requiring vasopressor, denying any complaints at this point. Patient has been not started on any anti- retroviral therapy for HIV till now, currently patient is feeling stable and, with the transferred to telemetry from ICU given patient does not requiring vasopressor. No any other new complaints including fever, chills, shortness of breath, chest pain, abdominal pain, dysuria, muscle weakness, sensory deficits, any other symptoms. Past Medical History HIV Past Surgical History As per HPI Family History: Diabetes mellitus G8 MOTHER G8 FATHER Ischemic heart disease G8 MOTHER G8 FATHER Social History Patient denied recent travel, IV drug use, however patient is homosexual. Allergies: Coded Allergies: NO KNOWN ALLERGIES (Unverified , 06/08/24) Home Meds Active Scripts Bucvmzzaffl-Tnbqormidhitl-Mbmm (Biktarvy 50-200-25 mg) 1 Tab Tab, 1 TAB PO DAILY for 60 Days, #60 TAB Prov:MATTHEW MAURER NP 07/08/24 Current Medications Current Medications Medications (Trade) Dose Ordered Sig/Sean Route PRN Reason Start Time Stop Time Status Last Admin Patient Own Medication 30 mg DAILY PO 07/09/24 10:00 07/09/24 11:29 DC Ampicillin Sodium 1 gm/Sodium Chloride 100 ml @ 200 mls/hr Q6HR IV 07/09/24 00:00 07/09/24 17:55 DC 07/09/24 12:00 Patient Own Medication 30 mg DAILY PO 07/09/24 11:29 07/09/24 14:06 DC 07/09/24 11:29 Trimethoprim/ Sulfamethoxazole (Bactrim Ds Tablet) 2 tab TID PO 07/09/24 22:00 UNV Cefepime HCl 50 ml @ 12.5 mls/hr Q8HR IV 07/09/24 22:00 Vancomycin HCl 0 ml @ 0 mls/hr UD IV 07/09/24 18:00 Vancomycin HCl 250 ml @ 250 mls/hr Q8H IV 07/09/24 19:00 Review of Systems Eyes: No Pain, No Vision change, No Conjunctivae inflammation, No Eyelid inflammation, No Other, No Redness ENT: No Ear pain, No Ear discharge, No Nose pain, No Nose discharge, No Nose congestion, No Mouth pain, No Mouth swelling, No Throat pain, No Throat swelling, No Other Cardiovascular: No Chest Pain, No Palpitations, No Orthopnea, No Paroxysmal Noc. Dyspnea, No Edema, No Lt Headedness, No Other Respiratory: No Cough, No Dry, No Shortness of breath, No SOB with excertion, No Wheezing, No Hemoptysis, No Pleuritic Pain, No Sputum, No Other Gastrointestinal: No Nausea, No Vomiting, No Abdominal Pain, No Diarrhea, No Constipation, No Melena, No Hematochezia, No Other Genitourinary: No Dysuria, No Frequency, No Incontinence, No Hematuria, No Retention, No Other Musculoskeletal: No other, No neck pain, No shoulder pain, No arm pain, No back pain, No hand pain, No leg pain, No foot pain Skin: No Rash, No Lesions, No Jaundice, No Bruising, No Other Vital Signs Vital Signs Date Time Temp Pulse Resp B/P (MAP) Pulse Ox O2 Delivery O2 Flow Rate FiO2 07/09/24 18:25 98.6 120 22 110/60 (77) 95 98.6 07/09/24 18:00 Room Air* 0 21 Physical Exam General Appearance: Cooperative. Well developed. Thin body habitus. NAD Head Exam: Normal inspection Neck Exam: Normal inspection. Non-tender. Normal alignment Pulmonary/Respiratory: Chest non-tender. Clear bilateral breath sounds Cardiovascular/Chest: Regular rate and rhythm. No murmurs. No JVD. Peripheral Pulses: 2+ Radial (R). 2+ Radial (L). 2+ Pedal (R). 2+ Pedal (L) Abdominal Exam: Normal bowel sounds. Soft. Nontender. No hepatospenomegaly. No masses Ankle Exam: Negative ankle edema Lower extremities: Negative lower extremity edema Neuro/Mental Status: A&O x4. Coherent Thoughts/Psych: Normal thought pattern. Appropriate mood and affect. Good judgement and insight Appearance: In no acute distress Skin Exam: Normal inspection. Normal color. Warm. Dry Labs/Diagnostic Data Labs Test 07/09/24 13:00 07/09/24 03:30 07/09/24 00:00 07/07/24 17:20 Range/Units Vancomycin Level Trough < 3.0 L 5-10 ug/mL White Blood Count 2.0 L 4.4-10.8 10^3/uL Red Blood Count 2.81 L 4.5-5.90 10^6/uL Hemoglobin 7.6 L 13.5-17.5 g/dL Hematocrit 22.5 L 41.0-53.0 % Mean Corpuscular Volume 79.9 L 80.0-100.0 fL Mean Corpuscular Hemoglobin 26.9 L 28.0-32.0 pg Mean Corpuscular Hemoglobin Concent 33.6 32.0-36.0 g/dL Red Cell Distribution Width 18.3 H 11.8-14.3 % Platelet Count 278 140-450 10^3/uL Mean Platelet Volume 9.7 6.9-10.8 fL Neutrophils (%) (Auto) 37.0-80.0 % Lymphocytes (%) (Auto) 10.0-50.0 % Monocytes (%) (Auto) 0.0-12.0 % Basophils (%) (Auto) 0.0-2.0 % Neutrophils # (Auto) 1.6-8.6 10 ^3/uL Lymphocytes # (Auto) 0.4-5.4 10 ^3/uL Monocytes # (Auto) 0-1.3 10 ^3/uL Differential Total Cells Counted 100.0 100 Neutrophils % (Manual) 72 37.0-80.0 Band Neutrophils % (Manual) 3 Lymphocytes % (Manual) 8 L 10.0-50.0 Monocytes % (Manual) 15 H 0-12 Eosinophils % (Manual) 1 0-7 Basophils % (Manual) 0 0.0-2.0 Metamyelocytes % (manual) 1 Myelocytes % (Manual) 0 Promyelocytes % (Manual) 0 Blast Cells % (Manual) 0 Nucleated Red Blood Cells 1.0 % Reactive Lymphocytes 0 Platelet Estimate Adequate Large Platelets Few Giant Platelets Few Anisocytosis (manual) Slight Ovalocytes Few Stomatocytes Few Schistocytes Few Sodium Level 128 L 136-145 mmol/L Potassium Level 4.3 3.5-5.1 mmol/L Chloride Level 93 L 98-107 mmol/L Carbon Dioxide Level 26 20-31 mmol/L Anion Gap 9 5-15 Blood Urea Nitrogen 18 9-23 mg/dL Creatinine 0.67 L 0.700-1.30 mg/dL Glomerular Filtration Rate Calc 130 >90 mL/min BUN/Creatinine Ratio 26.9 H 10.0-20.0 Serum Glucose 109 H 74-106 mg/dL Calcium Level 9.9 8.7-10.4 mg/dL Total Bilirubin 6.1 H 0.2-1.0 mg/dL Aspartate Amino Transferase (AST) 63 H 13-40 U/L Alanine Aminotransferase (ALT) 54 H 7-40 U/L Alkaline Phosphatase 583 H 46-116 U/L Total Protein 7.1 5.7-8.2 g/dL Albumin 3.9 3.2-4.8 g/dL Influenza Type A Antigen Negative Negative Influenza Type B Antigen Negative Negative SARS-CoV-2 Antigen (Rapid) Negative NEGATIVE Urine Color Dark-yellow Yellow Urine Clarity Clear Clear Urine pH 7.5 5.0-9.0 Urine Specific [place] 1.020 1.001-1.035 Urine Protein 1+ H Negative Urine Ketones Negative Negative Urine Blood Negative Negative /uL Urine Nitrite Negative Negative Urine Bilirubin 1+ Negative Urine Urobilinogen 2 H Negative mg/dL Urine Leukocyte Esterase Negative Negative /uL Urine RBC <1 0 - 3 /hpf Urine Microscopic WBC 2 0-3 /HPF Urine Squamous Epithelial Cells None seen <5 /hpf Urine Bacteria None seen None Seen /hpf Urine Osmolality 440 mOsm/kg Urine Sodium 60 40-220 mmol/L Urine Glucose Normal Normal mg/dL Test 07/06/24 16:40 07/06/24 06:00 07/04/24 05:44 07/02/24 09:52 Range/Units Lactate Dehydrogenase 268 H 120-246 U/L Stool for White Cells None seen Smudge Cells 3 /100 WBC Magnesium Level 1.8 1.6-2.6 mg/dL Direct Bilirubin 6.2 H <0.3 mg/dL Microcytosis Slight Test 06/30/24 05:40 06/28/24 06:00 06/27/24 21:50 06/27/24 12:23 Range/Units Tear Drop Cells Few Hypochromasia (manual) Slight Blood Gas Specimen Type Arterial Blood Gas Sample Site Left radial Blood Gas Patient Temperature 37.0 Arterial Blood Date Drawn Arterial Blood pH 7.535 H 7.350-7.450 Arterial Blood Partial Pressure CO2 28.6 L 35.0-48.0 mmHg Arterial Blood Partial Pressure O2 77.4 L 83.0-108.0 mmHg Arterial Blood HCO3 23.6 21.0-28.0 mmol/L Arterial Blood Oxygen Saturation 96.1 94.0-98.0 % Arterial Blood Base Excess 1.8 -2.0-3.0 mmol/L Arterial Blood Oxyhemoglobin 94.7 94.0-98.0 % Arterial Blood Carboxyhemoglobin 1.0 0.5-1.5 % Arterial Blood Methemoglobin 0.5 0.0-1.5 % Sam Test Modified Blood Gas Total Hemoglobin 11.90 L 13.5-17.5 g/dL Blood Gas Modality Room air FiO2 % 21.0 Miscellaneous Referred Test (Refrg) Sent to [facility] Test 06/27/24 05:35 06/26/24 16:36 06/26/24 16:32 06/26/24 05:27 Range/Units Prothrombin Time 10.0 9.3-11.8 sec Prothrombin Time INR 0.94 0.9-1.15 Ammonia 45 H 11-32 umol/L Creatine Kinase 291 H 46-171 U/L Eosinophils (%) (Auto) 0.1 0.0-7.0 % Eosinophils # (Auto) 0 0-0.8 10 ^3/uL Basophils # (Auto) 0 0-0.2 10 ^3/uL Absolute Neutrophils (auto) 1.7 1.4-7.0 x10E3/uL Absolute Lymphocytes (auto) 0.1 L 0.7-3.1 x10E3/uL Absolute Monocytes (auto) 0.3 0.1-0.9 x10E3/uL Absolute Eosinophils (auto) 0.0 0.0-0.4 x10E3/uL Absolute Basophils (auto) 0.0 0.0-0.2 x10E3/uL Immature Granulocytes % 2 Not Estab. % Immature Granulocytes # 0 0.0-0.1 x10E3/uL Immature Blood Cells . Hematology Comments . Percent CD4 Cells 9.6 L 30.8-58.5 % Absolute CD4 Count 10 L 359-1519 /uL T-Lymphocyte CD4/CD8 Ratio 0.11 L 0.92-3.72 Percent CD8 Cells 88.2 H 12.0-35.5 % Absolute CD8 Count 88 L 109-897 /uL Cytomegalovirus IgG Antibody >10.00 H 0.00-0.59 U/mL Cytomegalovirus IgM Antibody <30.0 0.0-29.9 AU/mL Neha-Scott Virus Capsid Ag IgG Ab 301.0 H 0.0-17.9 U/mL Neha-Scott Virus Capsid Ag IgM Ab <36.0 0.0-35.9 U/mL Neha-Scott Early Antigen IgG Ab 64.6 H 0.0-17.9 U/mL Neha-Scott Virus Ab Interpret Comment . Urine Opiates Screen Pos NEGATIVE Urine Fentanyl Screen Neg NEGATIVE Urine Barbiturates Screen Neg NEGATIVE Urine Phencyclidine Screen Neg NEGATIVE Urine Amphetamines Screen Neg NEGATIVE Urine Benzodiazepines Screen Neg NEGATIVE Urine Cocaine Screen Neg NEGATIVE Urine Cannabinoids Screen Neg NEGATIVE Reticulocyte Count (auto) 0.18 L 0.5-1.5 % Haptoglobin <10 L 17-317 mg/dL Ferritin > 3300.0 H 22-322 ng/mL Test 06/25/24 14:55 06/25/24 10:34 06/25/24 01:08 06/24/24 23:47 Range/Units Acetaminophen Level 6.0 L 10.0-20.0 UG/ML Plasma/Serum Blood Alcohol < 3.0 <10 mg/dL B-Type Natriuretic Peptide 17.98 0-100 pg/mL Hepatitis A IgM Antibody Negative Hepatitis B Surface Antigen Negative Negative Hepatitis B Core IgM Antibody Negative Negative Hepatitis C Antibody Negative Negative POC Glucose 149 H 70-106 mg/dl Test 06/23/24 21:41 06/23/24 09:52 06/23/24 09:13 06/20/24 12:50 Range/Units Troponin I High Sensitivity 10 </=54 ng/L Uric Acid 3.3 L 3.7-9.2 mg/dL Urine WBC 1 0 - 3 /hpf TB Test (QFT) Gold Plus Indeterminate H Negative TB Test (QFT) Nil >10.00 . IU/mL TB Test (QFT) Mitogen >10.00 . IU/mL TB Test (QFT) Antigen 1 >10.00 . IU/mL TB Test (QFT) Antigen 2 >10.00 . IU/mL TB Test (QFT) Criteria Comment . Test 06/19/24 05:41 06/12/24 20:52 06/12/24 09:00 06/12/24 05:40 Range/Units Serum Osmolality 269 L 278-298 mOsm/kg Urine Mucus Few None Seen Lactic Acid Level 0.8 0.4-2.0 mmol/L Activated Partial Thromboplast Time 29.3 24.5-34.5 SEC Test 06/11/24 13:10 06/09/24 23:22 06/09/24 10:26 06/08/24 11:16 Range/Units D-Dimer, Quantitative 1.49 H 0.0-0.49 mg/L FEU Legionella pneumophila S1-6 Abs Non reactive Non Reactive Mycoplasma pneumoniae IgG Antibody 395 H 0-99 U/mL Mycoplasma pneumoniae IgM Antibody <770 0-769 U/mL HIV-1 Antibody Confirmation Reactive Non Reactive HIV-2 Antibody Confirmation Non reactive Non Reactive HIV (1&2) Ag and Ab, 4th Generation Preliminary reactive Non Reactive HIV (1&2) Antibody Deferred Negative HIV (1&2) Antibody Interpretation Hiv-1 positive H . HIV-1 RNA (PCR) [id number] . copies/mL HIV-1 RNA (PCR) log10 Value 6.294 . Microbiology Date/Time Source Procedure Growth Status 07/07/24 06:10 Sputum Gram Stain - Final Resulted 07/07/24 06:10 Sputum Respiratory Culture - Preliminary Resulted 07/06/24 17:06 Voided Urine Urine Culture - Final Enterococcus faecalis Complete 07/06/24 12:50 Blood Blood Culture - Preliminary NO GROWTH AFTER 72 HOURS OF INCUBATION. Resulted 07/02/24 20:23 Stool Stool Culture - Preliminary Resulted 07/02/24 20:23 Stool Shiga Toxin I & II - Final Resulted 06/21/24 14:30 Nose MRSA Screen - Final Complete Assessment Pneumocystis Jerovoci or Carini Pneumonia ( opportunistic infection) AIDS, CD4 count less than 10 Acid-fast bacilli culture positive ? Rule out tuberculosis/MAC infection Neutropenic fever UTI Enterococcus faecalis Multifocal pneumonia Septic shock due to pneumonia: Currently off vasopressor Transaminitis with elevated bilirubin ? Age cholangiopathy/medication induced Hyponatremia likely due to SIADH Pulmonary nodule, 2 cm in size Left adrenal nodule Severe anemia Immunosuppressed Homosexual Plan/recommendation Dr. Guzman -Continue double-stranded Bactrim two tablets 3 times daily, closely monitor liver function tests, liver function trend trending down. Patient will need total three weeks of Bactrim coverage for PCP pneumonia -Holding anti-retroviral therapy until rule out tuberculosis/mac infection, p ending further lab results of acid-fast bacilli culture, three acid-fast bacilli smear negative, two acid-fast bacilli PCR negative. HIV-1 viral load RNA:[id number]. We will need ART therapy, currently holding until ruled out possible active TB/MAC infection and cryptococcal infection. -Continue airborne/droplet isolation, with reverse isolation. -Initiate IV antibiotic cefepime and vancomycin given patient continued to have neutropenic fever -Follow-up with acid-fast bacilli blood and stool, toxoplasma accordingly IgM/IgG G, cryptococcal antibody, chlamydia/gonorrhea amplification test, cytomegalovirus PCR. -Patient will also need HIV Genosure plus integrace for sensitivity to anti retroviral therapy -MRI brain negative for acute intracranial abnormality, less likely cryptococcus infection. -Check cMV PCR given possibility of low-level viremia -GI consultation for continue monitoring liver function -Pending G6PD test -Stool study negative for Campylobacter, Shiga toxin. -Bronchoscopy on 06/12/2024: Positive for PCP, negative for acid-fast bacilli. -MRCP 06/25 shows no biliary ductal dilation. no filling defects. Poor prognosis, guarded. Critical care time spent greater than 50 minutes, majority of the time spent [id number] interacting with patient. Thank you for consultation. Plan discussed with: Patient, Other (RN) JONO GUZMAN MD 07/09/24 6619: Family History: Diabetes mellitus G8 MOTHER G8 FATHER Ischemic heart disease G8 MOTHER G8 FATHER Allergies: Coded Allergies: NO KNOWN ALLERGIES (Unverified , 06/08/24) Home Meds Active Scripts Zxhyxgtbtzf-Ifqlqffbtkcko-Olhs (Biktarvy 50-200-25 mg) 1 Tab Tab, 1 TAB PO DAILY for 60 Days, #60 TAB Prov:MATTHEW MAURER JOB PRINTER 07/08/24 Assessment Attending Addendum: Case discussed with Dr. Vu. at the time of visit. Patient is an HIV patient , 28 years old and diagnosed in may 2024 [facility] and transferred to [facility] . Patient seen by myself and Dr Benito reviewed chart and disscussed p aln with Dr Benito . Patient CD4 count of 10 , viral load over 1 million and patient presented with acute hypoxic respiratory failure fevers and has been in hospital for about 1 month and in ICU requiring levofed . has a bronchoscopy done showing BAL cytology finding consistency with PJP pneumonia so started on bactrum from 7 days and then discontinued due to patient developing LFT elevation as well as hyperbilirubinemia . switched to climdamycin then discontinued due to patient improving and put on room ai r, evaluated for TB , AFB sputum has been negative and MTBPCR x2 has been negative however after 2 weeks 1 of patients sputum is growing AFB organism thats yet to be identified. feels a bit weak and has been having weightloss , fevers , chills for the last several months, last febrile was 48 hours ago with a temp of 100.5 and is neuropenic with a whitecount of 1.2 and is tachycardic with HR of 128 . low body weight of 54.1 kg and kexia and poor historia , having anemia with a hemoglobin of 7.6 which has been going down during admission . problem list includes HIV Aids , pneumonia , multi opportunistic organism infection including PJP and possibly TB vs Mac infection , cytopenias , neutropenic fever , sepsis , anemia , UTI with enterococcus . 12 point review systems and vitals signs and relevant imaging has been reviewed by me . plan for patient would be to stop ampicillin and start vancomycin and cefamine empirically due to fevers and unresolved sepsis and continue until fevers have resolved for 48 hours and meutropenia has improved . would check prior hold HAART therapy until TB infection is ruled out as cryptococal toxoplasm and CMV infections . check serologies for these and would restart patient on bactrum to finish 21 day course , will monitor LFTs and anemia . recommend checking AFB blood in stool for further evaluation of MAC infection and follow up on AFB cultures . continue airborne and droplet isolation precautions Otherwise reviewed and agree with Dr Vu's findings, A/P as written in note. PE: General Appearance: Cooperative. Well developed. Well nourished. NAD Head Exam: Normal inspection Neck Exam: Normal inspection. Non-tender. Normal alignment Pulmonary/Respiratory: Chest non-tender. Clear bilateral breath sounds. crackles in lungs Cardiovascular/Chest: tacycardic No murmurs. No JVD. Abdominal Exam: Normal bowel sounds. Soft. Nontender. No hepatosplenomegaly. No masses Ankle Exam: Lower extremities: ELVA Bonner MD RESIDENT Jul 09, 2024 19:27 JONO GUZMAN MD Jul 09, 2024 23:25
[2024-07-09] MEDS: CEFEPIME 2GM/50ML NS 50 ML IV SCH (21:48)
--- NOTE | 2024-07-09 22:02 | DVHPNRES ---
Progress Note Date Seen: Jul 09, 2024 Resident Creating Document: REGINE OCHOA RESIDENT Has the PT tested + for MRSA If YES, has PT been informed?: Yes Medical Necessity Reason Pt with a Central, PICC or Fol: No Subjective Review of Systems pt seen and examined at bedside mentions of no new complaints on room air Objective vital signs Vital Sign Date Time Temp Pulse Resp B/P (MAP) Pulse Ox O2 Delivery O2 Flow Rate FiO2 07/09/24 21:00 99.2 128 18 108/54 (72) 97 99.2 07/09/24 18:00 Room Air* 0 21 Total Intake and Output 07/08/24 07/08/24 07/09/24 15:00 23:00 07:00 Intake Total 305.0 ml 600 ml 300 ml Output Total 800 ml 450 ml Balance 305.0 ml -200 ml -150 ml medications Current Medications Medications Dose Ordered Sig/Sean Route Start Time Stop Time Status Last Admin Dose Admin Guaifenesin/ Dextromethorphan 10 ml Q4HP PRN PO 06/08/24 11:00 06/26/24 09:32 10 ML Morphine Sulfate 1 mg Q4HPRN PRN IV 06/16/24 14:00 07/01/24 15:14 1 MG Ondansetron HCl 4 mg Q4HP PRN IV 06/21/24 16:00 07/02/24 00:49 4 MG Metoclopramide HCl 10 mg Q8HPRN PRN IV 06/21/24 16:00 07/02/24 04:23 10 MG Diphenhydramine HCl 25 mg Q6HP PRN PO 06/21/24 17:00 07/05/24 23:37 25 MG Nystatin 5 ml QID MT 06/27/24 12:00 07/09/24 18:20 5 ML Carbamide Peroxide 5 drop Q12HR EACH EAR 06/27/24 10:00 07/09/24 10:00 5 DROP Pantoprazole Sodium 40 mg DAILY@0600 PO 06/29/24 06:00 07/09/24 05:48 40 MG Ursodiol 300 mg BID PO 06/28/24 22:00 07/09/24 10:44 300 MG Morphine Sulfate 2 mg Q4HPRN PRN IV 06/29/24 16:45 Docusate Sodium 200 mg DAILYPRN PRN PO 07/02/24 14:30 Artificial Tears 1 drop Q6HP PRN EACHEYE 07/03/24 14:00 07/04/24 05:19 1 DROP Sodium Chloride 2 gm BID PO 07/04/24 14:15 07/09/24 10:44 2 GM Enteral Nutritional Formula 240 ml TIDWM PO 07/06/24 08:00 07/09/24 18:00 240 ML Acetaminophen 650 mg Q6HP PRN PO 07/07/24 17:30 07/08/24 18:06 650 MG Trimethoprim/ Sulfamethoxazole 2 tab TID PO 07/09/24 22:00 Cefepime HCl 50 ml @ 12.5 mls/hr Q8HR IV 07/09/24 22:00 Vancomycin HCl 0 ml @ 0 mls/hr UD IV 07/09/24 18:00 Vancomycin HCl 250 ml @ 250 mls/hr Q8H IV 07/09/24 19:00 Examination Examination General Appearance: Alert, Oriented X3, Cooperative, No acute distress HEENT: EOMI Respiratory: Clear to auscultation, Normal air movement Cardiovascular: Regular rate, Normal S1, Normal S2 Abdominal: Normal bowel sounds Extremities: No cyanosis, No edema, Normal pulses, No tenderness/swelling Skin: No rashes, No breakdown Neuro: normal speech and tone laboratory and microbiology Laboratory Tests 07/09/24 03:30 Test 07/09/24 03:30 Range/Units Serum Glucose 109 H 74-106 mg/dL Microbiology Date/Time Source Procedure Growth Status 07/07/24 06:10 Sputum Gram Stain - Final Resulted 07/07/24 06:10 Sputum Respiratory Culture - Preliminary Resulted 07/06/24 17:06 Voided Urine Urine Culture - Final Enterococcus faecalis Complete 07/06/24 12:50 Blood Blood Culture - Preliminary NO GROWTH AFTER 72 HOURS OF INCUBATION. Resulted 07/02/24 20:23 Stool Stool Culture - Preliminary Resulted 07/02/24 20:23 Stool Shiga Toxin I & II - Final Resulted 06/21/24 14:30 Nose MRSA Screen - Final Complete Labs and/or images reviewed: Labs reviewed by me, Image(s) reviewed by me Problem List/Assessment/Plan Problem List/Assessment/Plan Assessment/plan Neurology Cardiology # shock likely due to septic shock -patient is off vasopressors since yesterday Respiratory # acute hypoxic respiratory 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 -currently on room air #Multifocal pneumonia, Pneumocystis Jerovoci or Carini Pneumonia ( opportunistic infection) -patient was initially on Bactrim was discontinued and was planned to start on primaquine -infectious disease on board #Pulmonary nodule, 2 cm in size -seen on imaging GI #Transaminitis with elevated bilirubin ?cholangiopathy/medication induced -monitor Urology #UTI Enterococcus faecalis -currently on IV ampicillin Endocrine #Left adrenal nodule -cortisol AM Hematology/Oncology # microcytic anemia Monitor # leukopenia with neutropenic fever ?likely due to sepsis -monitor Nephrology #VEL due to ?bacterim use -nephrology on board #Hyponatremia ?SIADH due to PCP pneumonia/bacterim use -monitor #hypokalemia -corrected #Hyperkalemia -corrected Infectious disease #oral candidiasis -nystatin swish and swallow #AIDS, CD4 count less than 10 -ID on board #Acid-fast bacilli culture positive ? Rule out tuberculosis/MAC infection -ID on board #Pneumocystis Jerovoci or Carini Pneumonia ( opportunistic infection) -ID on board Social Homosexual Lines peripheral IV Drips off norepi drip DVT prophylaxis SCD PUD prophylaxis not indicated nutrition regular diet Code status discussed with the pt >21min , FULL CODE Critical care time excluding procedures 83 minutes Case discussion with Dr Pettit Plan discussed with: Other My Orders My Orders Orders - REGINE OCHOA Procedure Category Date Status Time Electrocardigram EKG 07/09/24 Logged 13:04 Dietary Evaluation Review Comments: Encourage and monitor PO intake to meet 75% of his needs Expected Outcomes/Goals: free from symptoms, gradual weight gain. Date of Service: Jul 09, 2024 Billing Provider: ANDRE PETTIT MD Common Visit Codes: 39784-[id number] CARE 30-74 MIN, [id number] CARE-EACH +30MIN REGINE OCHOA Jul 09, 2024 22:02 ANDRE PETTIT MD Jul 10, 2024 15:47
[2024-07-09] MEDS: SULFAMETHOX W/TRIMETH(800/160MG) DS TAB PO SCH (22:22)
[2024-07-10] VITALS (10 sets, daily range): BP systolic 70–104; BP diastolic 35–57; PULSE 64–147; RESP 17–19; TEMP 97.2–103.2; O2SAT 92–99
--- NOTE | 2024-07-10 02:40 | ECG ---
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
[2024-07-10 07:23] LABS: Hematocrit 24.9 % (41.0-53.0); Hemoglobin 8.3 g/dL (13.5-17.5); Mean Corpuscular Hemoglobin 26.4 pg (28.0-32.0); Mean Corpuscular Hgb Conc. 33.4 g/dL (32.0-36.0)
[2024-07-10 07:26] LABS: Mean Corpuscular Volume 79.2 fL (80.0-100.0); Platelet Count (auto) 307 10^3/uL (140-450); Red Blood Cells 3.14 10^6/uL (4.5-5.90); Red Cell Distribution Width 17.7 % (11.8-14.3); White Blood Cell 4.5 10^3/uL (4.4-10.8)
[2024-07-10 07:34] LABS: Albumin 3.9 g/dL (3.2-4.8); Anion Gap 14 (5-15); BUN/Creatinine Ratio 19.4 (10.0-20.0); Calcium 9.9 mg/dL (8.7-10.4); Carbon Dioxide 23 mmol/L (20-31); Glucose 89 mg/dL (74-106); Magnesium 1.7 mg/dL (1.6-2.6); Potassium 3.7 mmol/L (3.5-5.1)
[2024-07-10 07:35] LABS: Total Protein 7.3 g/dL (5.7-8.2)
[2024-07-10 07:36] LABS: Basophils % (manual) 0 (0.0-2.0); Blast Cells 0; Eosinophils % (manual) 0 (0-7); Metamyelocytes % 0; Monocytes % (manual) 0 (0-12); Myelocytes % 0; Promyelocytes % 0; Reactive Lymphocytes 0
[2024-07-10 07:48] LABS: Alanine Aminotransferase 61 U/L (7-40); Alkaline Phosphatase 624 U/L (46-116); Aspartate Aminotransferase 108 U/L (13-40); Bilirubin, Total 6.6 mg/dL (0.2-1.0); Blood Urea Nitrogen 27 mg/dL (9-23); Chloride 92 mmol/L (98-107); Sodium 129 mmol/L (136-145)
[2024-07-10 09:54] LABS: Band Neutrophils % (manual) 12; Lymphocytes % (manual) 21 (10.0-50.0); Platelet Estimate Adequate
--- NOTE | 2024-07-10 10:40 | ECG ---
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
[2024-07-10] MEDS: SODIUM CHLORIDE 0.9% 250 ML IV ONE ×2 (10:45→16:09)
--- NOTE | 2024-07-10 14:55 | DVHPN2 ---
Progress Note Date Seen: Jul 10, 2024 Has the PT tested + for MRSA If YES, has PT been informed?: Yes Medical Necessity Reason Pt with a Central, PICC or Fol: No Subjective Patient reports: No new complaints, Other Review of Systems: Deferred Objective vital signs Vital Sign Date Time Temp Pulse Resp B/P (MAP) Pulse Ox O2 Delivery O2 Flow Rate FiO2 07/10/24 13:00 98.5 143 19 70/40 (50) 92 98.5 07/10/24 06:00 Room Air* 0 21 Total Intake and Output 07/09/24 07/09/24 07/10/24 15:00 23:00 07:00 Intake Total 1050 ml 50 ml Output Total 850 ml Balance 200 ml 50 ml medications Current Medications Medications Dose Ordered Sig/Sean Route Start Time Stop Time Status Last Admin Dose Admin Guaifenesin/ Dextromethorphan 10 ml Q4HP PRN PO 06/08/24 11:00 07/10/24 01:48 10 ML Morphine Sulfate 1 mg Q4HPRN PRN IV 06/16/24 14:00 07/01/24 15:14 1 MG Ondansetron HCl 4 mg Q4HP PRN IV 06/21/24 16:00 07/10/24 05:56 4 MG Metoclopramide HCl 10 mg Q8HPRN PRN IV 06/21/24 16:00 07/02/24 04:23 10 MG Diphenhydramine HCl 25 mg Q6HP PRN PO 06/21/24 17:00 07/05/24 23:37 25 MG Nystatin 5 ml QID MT 06/27/24 12:00 07/10/24 11:45 5 ML Carbamide Peroxide 5 drop Q12HR EACH EAR 06/27/24 10:00 07/09/24 21:48 5 DROP Pantoprazole Sodium 40 mg DAILY@0600 PO 06/29/24 06:00 07/10/24 05:57 40 MG Ursodiol 300 mg BID PO 06/28/24 22:00 07/10/24 12:35 300 MG Morphine Sulfate 2 mg Q4HPRN PRN IV 06/29/24 16:45 Docusate Sodium 200 mg DAILYPRN PRN PO 07/02/24 14:30 Artificial Tears 1 drop Q6HP PRN EACHEYE 07/03/24 14:00 07/04/24 05:19 1 DROP Sodium Chloride 2 gm BID PO 07/04/24 14:15 07/10/24 10:00 2 GM Enteral Nutritional Formula 240 ml TIDWM PO 07/06/24 08:00 07/10/24 12:00 240 ML Acetaminophen 650 mg Q6HP PRN PO 07/07/24 17:30 07/10/24 01:41 650 MG Trimethoprim/ Sulfamethoxazole 2 tab TID PO 07/09/24 22:00 07/10/24 05:57 2 TAB Cefepime HCl 50 ml @ 12.5 mls/hr Q8HR IV 07/09/24 22:00 07/10/24 05:56 12.5 MLS/HR Vancomycin HCl 0 ml @ 0 mls/hr UD IV 07/09/24 18:00 Vancomycin HCl 250 ml @ 250 mls/hr Q8H IV 07/09/24 19:00 07/10/24 12:35 250 MLS/HR Sodium Chloride 1,000 ml @ 100 mls/hr Q10H IV 07/10/24 14:15 laboratory and microbiology Laboratory Tests 07/10/24 05:10 Test 07/10/24 05:10 Range/Units Serum Glucose 89 74-106 mg/dL Microbiology Date/Time Source Procedure Growth Status 07/07/24 06:10 Sputum Gram Stain - Final Complete 07/07/24 06:10 Respiratory Culture - Final Staphylococcus aureus Complete 07/06/24 17:06 Voided Urine Urine Culture - Final Enterococcus faecalis Complete 07/06/24 12:50 Blood Blood Culture - Preliminary NO GROWTH AFTER 72 HOURS OF INCUBATION. Resulted 07/02/24 20:23 Stool Stool Culture - Preliminary Resulted 07/02/24 20:23 Stool Shiga Toxin I & II - Final Resulted 06/21/24 14:30 Nose MRSA Screen - Final Complete Problem List/Assessment/Plan Problem List/Assessment/Plan VEL in the setting of hypotension/shock hyponatremia SIADH plus IV Bactrim use recently hyperkalemia AIDS PCP on bactrim IV now switched to p.o. PNA leukopenia Recommendations NS iv as ordered continuously maintain map>65, vasopressors as needed Plan discussed with: Patient My Orders My Orders Orders - BAILEE WATTERS MD Procedure Category Date Status Time Sodium Chloride 0.9% PHA 07/10/24 In Process 14:15 Dietary Evaluation Review Comments: Encourage and monitor PO intake to meet 75% of his needs Expected Outcomes/Goals: free from symptoms, gradual weight gain. BAILEE WATTERS MD Jul 10, 2024 14:55
[2024-07-10] MEDS: SODIUM CHLORIDE 0.9% 1,000 ML IV SCH (15:00)
--- NOTE | 2024-07-10 16:34 | DVHPN2 ---
Progress Note Date Seen: Jul 10, 2024 Resident Creating Document: MING VALENTIN RESIDENT Has the PT tested + for MRSA If YES, has PT been informed?: Yes Medical Necessity Reason Pt with a Central, PICC or Fol: No Subjective Review of Systems Patient seen and examined in the ICU. Patient was transferred to ICU given hypotension, was started on norepinephrine 2 mcg over the weekend. Abdomen is soft, nontender. Objective vital signs Vital Sign Date Time Temp Pulse Resp B/P (MAP) Pulse Ox O2 Delivery O2 Flow Rate FiO2 07/10/24 13:00 98.5 143 19 70/40 (50) 92 98.5 07/10/24 06:00 Room Air* 0 21 Total Intake and Output 07/09/24 07/09/24 07/10/24 15:00 23:00 07:00 Intake Total 1050 ml 50 ml Output Total 850 ml Balance 200 ml 50 ml medications Current Medications Medications Dose Ordered Sig/Sean Route Start Time Stop Time Status Last Admin Dose Admin Guaifenesin/ Dextromethorphan 10 ml Q4HP PRN PO 06/08/24 11:00 07/10/24 01:48 10 ML Morphine Sulfate 1 mg Q4HPRN PRN IV 06/16/24 14:00 07/01/24 15:14 1 MG Ondansetron HCl 4 mg Q4HP PRN IV 06/21/24 16:00 07/10/24 11:32 4 MG Metoclopramide HCl 10 mg Q8HPRN PRN IV 06/21/24 16:00 07/10/24 16:03 10 MG Diphenhydramine HCl 25 mg Q6HP PRN PO 06/21/24 17:00 07/05/24 23:37 25 MG Nystatin 5 ml QID MT 06/27/24 12:00 07/10/24 11:45 5 ML Carbamide Peroxide 5 drop Q12HR EACH EAR 06/27/24 10:00 07/09/24 21:48 5 DROP Pantoprazole Sodium 40 mg DAILY@0600 PO 06/29/24 06:00 07/10/24 05:57 40 MG Ursodiol 300 mg BID PO 06/28/24 22:00 07/10/24 12:35 300 MG Morphine Sulfate 2 mg Q4HPRN PRN IV 06/29/24 16:45 Docusate Sodium 200 mg DAILYPRN PRN PO 07/02/24 14:30 Artificial Tears 1 drop Q6HP PRN EACHEYE 07/03/24 14:00 07/04/24 05:19 1 DROP Sodium Chloride 2 gm BID PO 07/04/24 14:15 07/10/24 10:00 2 GM Enteral Nutritional Formula 240 ml TIDWM PO 07/06/24 08:00 07/10/24 12:00 240 ML Acetaminophen 650 mg Q6HP PRN PO 07/07/24 17:30 07/10/24 01:41 650 MG Trimethoprim/ Sulfamethoxazole 2 tab TID PO 07/09/24 22:00 07/10/24 05:57 2 TAB Cefepime HCl 50 ml @ 12.5 mls/hr Q8HR IV 07/09/24 22:00 07/10/24 15:13 12.5 MLS/HR Sodium Chloride 1,000 ml @ 100 mls/hr Q10H IV 07/10/24 14:15 07/10/24 15:00 100 MLS/HR Examination Patient lying in bed, in no acute distress General: Well-built, afebrile, palor, mucosae are moist Cardiovascular: Regular S1 and S2. No murmurs, gallops or rubs. No JVD elevation. No pedal edema Respiratory: Normal B/L air entry on room air. Clear lung sounds on auscultation Abdomen: Soft, distended nontender to superficial touch, normoactive bowel sounds, no rebound tenderness, no organomegaly, no masses Genitourinary: Deferred MSK/skin: Mobilizes 4 limbs. Skin is dry and warm Neurological: No motor, no sensitive deficits, normal speech. Pupils are isocoric and reactive. Psych/Mental Status: A/Ox4 laboratory and microbiology Laboratory Tests 07/10/24 05:10 Test 07/10/24 05:10 Range/Units Serum Glucose 89 74-106 mg/dL Microbiology Date/Time Source Procedure Growth Status 07/07/24 06:10 Sputum Gram Stain - Final Complete 07/07/24 06:10 Respiratory Culture - Final Staphylococcus aureus Complete 07/06/24 17:06 Voided Urine Urine Culture - Final Enterococcus faecalis Complete 07/06/24 12:50 Blood Blood Culture - Preliminary NO GROWTH AFTER 72 HOURS OF INCUBATION. Resulted 07/02/24 20:23 Stool Stool Culture - Preliminary Resulted 07/02/24 20:23 Stool Shiga Toxin I & II - Final Resulted 06/21/24 14:30 Nose MRSA Screen - Final Complete Labs and/or images reviewed: Labs reviewed by me, Image(s) reviewed by me Problem List/Assessment/Plan Problem List/Assessment/Plan Transaminitis secondary to HIV versus medication induced, negative hepatitis panel, MRCP negative ? 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 no filling defects. Plan: Recommend transferring to higher level of care Stool sample sent for studies. Follow up with the ova and parasite. Stool WBC negative. Antibiotics per primary team LFTs are up trending . Consider stool studies for Cryptosporidium and isospora Continue supportive care Pantoprazole 40 mg daily LFTs trending down Patient will be started on to Biktarvy as an outpatient Avoid NSAIDs Plan discussed with patient in which all questions have been answered Case discussed with Dr. Robins Plan discussed with: Patient Dietary Evaluation Review Comments: Encourage and monitor PO intake to meet 75% of his needs Expected Outcomes/Goals: free from symptoms, gradual weight gain. MING VALENTIN RESIDENT Jul 10, 2024 16:34
[2024-07-10] MEDS: ACETAMINOPHEN 500 MG TAB or CAP PO ONE (18:46)
[2024-07-10] MEDS ORDERED: AMPICILLIN INJ 1 GM in SODIUM CHL 0.9% 100 ML IV ONE (19:15)
[2024-07-10] MEDS ORDERED: SODIUM CHLORIDE 0.9% 1,000 ML IV SCH (19:15)
--- NOTE | 2024-07-10 19:28 | DVHPNRES ---
Progress Note Date Seen: Jul 10, 2024 Resident Creating Document: REGINE OCHOA RESIDENT Has the PT tested + for MRSA If YES, has PT been informed?: Yes Medical Necessity Reason Pt with a Central, PICC or Fol: No Subjective Review of Systems pt seen and examined at bedside mentions of no new complaints on room air Objective vital signs Vital Sign Date Time Temp Pulse Resp B/P (MAP) Pulse Ox O2 Delivery O2 Flow Rate FiO2 07/10/24 19:08 98.5 07/10/24 17:00 64 17 104/35 (58) 93 07/10/24 06:00 Room Air* 0 21 Total Intake and Output 07/09/24 07/09/24 07/10/24 15:00 23:00 07:00 Intake Total 1050 ml 50 ml Output Total 850 ml Balance 200 ml 50 ml medications Current Medications Medications Dose Ordered Sig/Sean Route Start Time Stop Time Status Last Admin Dose Admin Guaifenesin/ Dextromethorphan 10 ml Q4HP PRN PO 06/08/24 11:00 07/10/24 01:48 10 ML Morphine Sulfate 1 mg Q4HPRN PRN IV 06/16/24 14:00 07/01/24 15:14 1 MG Ondansetron HCl 4 mg Q4HP PRN IV 06/21/24 16:00 07/10/24 11:32 4 MG Metoclopramide HCl 10 mg Q8HPRN PRN IV 06/21/24 16:00 07/10/24 16:03 10 MG Diphenhydramine HCl 25 mg Q6HP PRN PO 06/21/24 17:00 07/05/24 23:37 25 MG Nystatin 5 ml QID MT 06/27/24 12:00 07/10/24 18:45 5 ML Carbamide Peroxide 5 drop Q12HR EACH EAR 06/27/24 10:00 07/09/24 21:48 5 DROP Pantoprazole Sodium 40 mg DAILY@0600 PO 06/29/24 06:00 07/10/24 05:57 40 MG Ursodiol 300 mg BID PO 06/28/24 22:00 07/10/24 12:35 300 MG Morphine Sulfate 2 mg Q4HPRN PRN IV 06/29/24 16:45 Docusate Sodium 200 mg DAILYPRN PRN PO 07/02/24 14:30 Artificial Tears 1 drop Q6HP PRN EACHEYE 07/03/24 14:00 07/04/24 05:19 1 DROP Sodium Chloride 2 gm BID PO 07/04/24 14:15 07/10/24 10:00 2 GM Enteral Nutritional Formula 240 ml TIDWM PO 07/06/24 08:00 07/10/24 18:45 240 ML Acetaminophen 650 mg Q6HP PRN PO 07/07/24 17:30 07/10/24 16:30 650 MG Cefepime HCl 50 ml @ 12.5 mls/hr Q8HR IV 07/09/24 22:00 07/10/24 15:13 12.5 MLS/HR Sodium Chloride 1,000 ml @ 100 mls/hr Q10H IV 07/10/24 14:15 07/10/24 15:00 100 MLS/HR Trimethoprim/ Sulfamethoxazole 1 tab TID PO 07/10/24 22:00 Examination Examination General Appearance: Alert, Oriented X3, Cooperative, No acute distress HEENT: EOMI Respiratory: Clear to auscultation, Normal air movement Cardiovascular: Regular rate, Normal S1, Normal S2 Abdominal: Normal bowel sounds Extremities: No cyanosis, No edema, Normal pulses, No tenderness/swelling Skin: No rashes, No breakdown Neuro: normal speech and tone laboratory and microbiology Laboratory Tests 07/10/24 05:10 Test 07/10/24 05:10 Range/Units Serum Glucose 89 74-106 mg/dL Microbiology Date/Time Source Procedure Growth Status 07/07/24 06:10 Sputum Gram Stain - Final Complete 07/07/24 06:10 Respiratory Culture - Final Staphylococcus aureus Complete 07/06/24 17:06 Voided Urine Urine Culture - Final Enterococcus faecalis Complete 07/06/24 12:50 Blood Blood Culture - Preliminary NO GROWTH AFTER 72 HOURS OF INCUBATION. Resulted 07/02/24 20:23 Stool Stool Culture - Preliminary Resulted 07/02/24 20:23 Stool Shiga Toxin I & II - Final Resulted 06/21/24 14:30 Nose MRSA Screen - Final Complete Labs and/or images reviewed: Image(s) reviewed by me Problem List/Assessment/Plan Problem List/Assessment/Plan Assessment/plan Neurology Cardiology # shock likely due to septic shock -patient is off vasopressors since yesterday -started on IV fluids --vanco discontinued -continue cefepime Respiratory # acute hypoxic respiratory 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 -currently on room air #Multifocal pneumonia, Pneumocystis Jerovoci or Carini Pneumonia ( opportunistic infection) -patient was initially on Bactrim was discontinued -infectious disease on board, started bacterim again #Pulmonary nodule, 2 cm in size -seen on imaging GI #Transaminitis with elevated bilirubin ?cholangiopathy/medication induced -monitor Urology #UTI Enterococcus faecalis -ampicillin stopped by ID Endocrine #Left adrenal nodule -cortisol AM Hematology/Oncology # microcytic anemia Monitor # leukopenia with neutropenic fever ?likely due to sepsis -monitor Nephrology #VEL due to ?bacterim use -nephrology on board -IV fluids #Hyponatremia ?SIADH due to PCP pneumonia/bacterim use -monitor #hypokalemia -corrected #Hyperkalemia -corrected Infectious disease #oral candidiasis -nystatin swish and swallow #AIDS, CD4 count less than 10 -ID on board #Acid-fast bacilli culture positive ? Rule out tuberculosis/MAC infection -ID on board #Pneumocystis Jerovoci or Carini Pneumonia ( opportunistic infection) -ID on board Social Homosexual Lines peripheral IV Drips off norepi drip DVT prophylaxis SCD PUD prophylaxis not indicated nutrition regular diet Code status discussed with the pt >21min , FULL CODE pt downgraded to telemetry Case discussion with Dr Pettit Plan discussed with: Other My Orders My Orders Orders - REGINE OCHOA Procedure Category Date Status Time Up In Chair Qid STANLEY 07/09/24 In Process 22:03 Thyroid Stimulating LAB 07/10/24 In Process Hormone 04:00 Electrocardigram EKG 07/10/24 Resulted 02:12 Communication Order ORDERS 07/10/24 Transmitted 18:38 Dietary Evaluation Review Comments: Encourage and monitor PO intake to meet 75% of his needs Expected Outcomes/Goals: free from symptoms, gradual weight gain. Date of Service: Jul 10, 2024 Billing Provider: ANDRE PETTIT MD Common Visit Codes: 37490-[id number] INP/OBS CARE(HIGH) Secondary Visit Codes: [id number] CARE PLAN 30 MINUTES REGINE OCHOA RESIDENT Jul 10, 2024 19:28 ANDRE PETTIT MD Jul 11, 2024 18:15
--- NOTE | 2024-07-10 19:58 | DVHPN2 ---
ELVA VU RESIDENT 07/10/241957: Consult Progress Note Date Seen: Jul 10, 2024 Subjective Patient reports: No new complaints Other Systems: Patient seen and examined at bedside. No other new complaints. Review of Systems Eyes: No Pain, No Vision change, No Conjunctivae inflammation, No Eyelid inflammation, No Other, No Redness ENT: No Ear pain, No Ear discharge, No Nose pain, No Nose discharge, No Nose congestion, No Mouth pain, No Mouth swelling, No Throat pain, No Throat swelling, No Other Cardiovascular: No Chest Pain, No Palpitations, No Orthopnea, No Paroxysmal Noc. Dyspnea, No Edema, No Lt Headedness, No Other Respiratory: No Cough, No Dry, No Shortness of breath, No SOB with excertion, No Wheezing, No Hemoptysis, No Pleuritic Pain, No Sputum, No Other Gastrointestinal: No Nausea, No Vomiting, No Abdominal Pain, No Diarrhea, No Constipation, No Melena, No Hematochezia, No Other Genitourinary: No Dysuria, No Frequency, No Incontinence, No Hematuria, No Retention, No Other Musculoskeletal: No other, No neck pain, No shoulder pain, No arm pain, No back pain, No hand pain, No leg pain, No foot pain Skin: No Rash, No Lesions, No Jaundice, No Bruising, No Other Physical Exam General Appearance: Cooperative. Well developed. Thin body habitus. NAD Head Exam: Normal inspection Neck Exam: Normal inspection. Non-tender. Normal alignment Pulmonary/Respiratory: Chest non-tender. Clear bilateral breath sounds Cardiovascular/Chest: Regular rate and rhythm. No murmurs. No JVD. Peripheral Pulses: 2+ Radial (R). 2+ Radial (L). 2+ Pedal (R). 2+ Pedal (L) Abdominal Exam: Normal bowel sounds. Soft. Nontender. No hepatospenomegaly. No masses Ankle Exam: Negative ankle edema Lower extremities: Negative lower extremity edema Neuro/Mental Status: A&O x4. Coherent Thoughts/Psych: Normal thought pattern. Appropriate mood and affect. Good judgement and insight Appearance: In no acute distress Skin Exam: Normal inspection. Normal color. Warm. Dry Objective vital signs Vital Sign Date Time Temp Pulse Resp B/P (MAP) Pulse Ox O2 Delivery O2 Flow Rate FiO2 07/10/24 19:08 98.5 07/10/24 17:00 64 17 104/35 (58) 93 07/10/24 06:00 Room Air* 0 21 Total Intake and Output 07/09/24 07/09/24 07/10/24 15:00 23:00 07:00 Intake Total 1050 ml 50 ml Output Total 850 ml Balance 200 ml 50 ml medications Current Medications Medications Dose Ordered Sig/Sean Route Start Time Stop Time Status Last Admin Dose Admin Guaifenesin/ Dextromethorphan 10 ml Q4HP PRN PO 06/08/24 11:00 07/10/24 01:48 10 ML Morphine Sulfate 1 mg Q4HPRN PRN IV 06/16/24 14:00 07/01/24 15:14 1 MG Ondansetron HCl 4 mg Q4HP PRN IV 06/21/24 16:00 07/10/24 11:32 4 MG Metoclopramide HCl 10 mg Q8HPRN PRN IV 06/21/24 16:00 07/10/24 16:03 10 MG Diphenhydramine HCl 25 mg Q6HP PRN PO 06/21/24 17:00 07/05/24 23:37 25 MG Nystatin 5 ml QID MT 06/27/24 12:00 07/10/24 18:45 5 ML Carbamide Peroxide 5 drop Q12HR EACH EAR 06/27/24 10:00 07/09/24 21:48 5 DROP Pantoprazole Sodium 40 mg DAILY@0600 PO 06/29/24 06:00 07/10/24 05:57 40 MG Ursodiol 300 mg BID PO 06/28/24 22:00 07/10/24 12:35 300 MG Morphine Sulfate 2 mg Q4HPRN PRN IV 06/29/24 16:45 Docusate Sodium 200 mg DAILYPRN PRN PO 07/02/24 14:30 Artificial Tears 1 drop Q6HP PRN EACHEYE 07/03/24 14:00 07/04/24 05:19 1 DROP Sodium Chloride 2 gm BID PO 07/04/24 14:15 07/10/24 10:00 2 GM Enteral Nutritional Formula 240 ml TIDWM PO 07/06/24 08:00 07/10/24 18:45 240 ML Acetaminophen 650 mg Q6HP PRN PO 07/07/24 17:30 07/10/24 16:30 650 MG Cefepime HCl 50 ml @ 12.5 mls/hr Q8HR IV 07/09/24 22:00 07/10/24 15:13 12.5 MLS/HR Sodium Chloride 1,000 ml @ 100 mls/hr Q10H IV 07/10/24 14:15 07/10/24 15:00 100 MLS/HR Trimethoprim/ Sulfamethoxazole 1 tab TID PO 07/10/24 22:00 laboratory and microbiology Laboratory Tests 07/10/24 05:10 Test 07/10/24 05:10 Range/Units Serum Glucose 89 74-106 mg/dL Problem List/Assessment/Plan Problem List/Assessment/Plan Pneumocystis Jerovoci or Carini Pneumonia ( opportunistic infection) AIDS, CD4 count less than 10 Acid-fast bacilli culture positive ? Rule out tuberculosis/MAC infection Neutropenic fever UTI Enterococcus faecalis Multifocal pneumonia Septic shock due to pneumonia: Currently off vasopressor Transaminitis with elevated bilirubin ? Age cholangiopathy/medication induced Hyponatremia likely due to SIADH Pulmonary nodule, 2 cm in size Left adrenal nodule Severe anemia Immunosuppressed Homosexual Plan/recommendation Dr. Guzman -Continue double-stranded Bactrim 1 tablets 3 times daily, closely monitor liver function tests, liver function. Patient will need total three weeks of Bactrim coverage for PCP pneumonia. -continue vancomycin given worsening kidney function, continue to monitor kidney function. Continue with cefepime. He continued to have fever and requiring IV fluid with worsening low blood pressure. No requiring vasopressor at this point. -Holding anti-retroviral therapy until rule out tuberculosis/mac infection, pending further lab results of acid-fast bacilli culture, three acid-fast bacilli smear negative, two acid-fast bacilli PCR negative. HIV-1 viral load RNA:[id number]. We will need ART therapy, currently holding until ruled out possible active TB/MAC infection and cryptococcal infection. -Continue airborne/droplet isolation, with reverse isolation. -respiratory culture came back positive for Staphylococcus aureus. -Follow-up with acid-fast bacilli blood and stool, toxoplasma accordingly IgM/IgG G, cryptococcal antibody, chlamydia/gonorrhea amplification test, cytomegalovirus PCR. -Patient will also need HIV Genosure plus integrace for sensitivity to anti retroviral therapy -MRI brain negative for acute intracranial abnormality, less likely cryptococcus infection. -Check cMV PCR given possibility of low-level viremia -GI consultation for continue monitoring liver function -Pending G6PD test -Stool study negative for Campylobacter, Shiga toxin. -Bronchoscopy on 06/12/2024: Positive for PCP, negative for acid-fast bacilli. -MRCP 06/25 shows no biliary ductal dilation. no filling defects. Poor prognosis, guarded. Plan discussed with: Patient, Other (RN) Dietary Evaluation Review Comments: Encourage and monitor PO intake to meet 75% of his needs Expected Outcomes/Goals: free from symptoms, gradual weight gain. JONO GUZMAN MD 07/14/241918: Consult Progress Note Problem List/Assessment/Plan Problem List/Assessment/Plan Attending Addendum: Case discussed with Dr. Vu. at the time of visit. Patient is an HIV patient , 28 years old and diagnosed in may 2024 [facility] and transferred to [facility] . Patient seen by myself and Dr Benito reviewed chart and disscussed paln with Dr Benito . Patient CD4 count of 10 , viral load over 1 million and patient presented with acute hypoxic respiratory failure fevers and has been in hospital for about 1 month and in ICU requiring levofed . has a bronchoscopy done showing BAL cytology finding consistency with PJP pneumonia so started on bactrum from 7 days and then discontinued due to patient developing LFT elevation as well as hyperbilirubinemia . switched to climdamycin then discontinued due to patient improving and put on room ai r, evaluated for TB , AFB sputum has been negative and MTBPCR x2 has been negative however after 2 weeks 1 of patients sputum is growing AFB organism thats yet to be identified. feels a bit weak and has been having weightloss , fevers , chills for the last several months, last febrile was 48 hours ago with a temp of 100.5 and is neuropenic with a whitecount of 1.2 and is tachycardic with HR of 128 . low body weight of 54.1 kg and kexia and poor historia , having anemia with a hemoglobin of 7.6 which has been going down during admission . problem list includes HIV Aids , pneumonia , multi opportunistic organism infection including PJP and possibly TB vs Mac infection , cytopenias , neutropenic fever , sepsis , anemia , UTI with enterococcus . 12 point review systems and vitals signs and relevant imaging has been reviewed by me . plan for patient would be to stop ampicillin and start vancomycin and cefamine empirically due to fevers and unresolved sepsis and continue until fevers have resolved for 48 hours and meutropenia has improved . would check prior hold HAART therapy until TB infection is ruled out as cryptococal toxoplasm and CMV infections . check serologies for these and would restart patient on bactrum to finish 21 day course , will monitor LFTs and anemia . recommend checking AFB blood in stool for further evaluation of MAC infection and follow up on AFB cultures . continue airborne and droplet isolation precautions 2/4; continues to be febrile and was reported by Dr Vu in the AM to be more alert , lethargic and not responding to questions but responding to deep sternal rub . patients whitecount is rising and kidney function is worsening. Is on room air and can forgo PJP treatments since it is unlikely playing a large role in septic picture and patietns on room ait . Patient weighs 106 lbs , so attempt to lower bactrum to 1 double strength tablet 3x a day and monitor kidney function , can stop vancomycin in setting of VEL and will switch to linasolid and continue cefepime. If mentation does not improve in next 24 hours patient will need lumbar puncture. recommend repeating blood cultures and doing a chest ct of abdomen and pelvis Otherwise reviewed and agree with Dr Vu's findings, A/P as written in note. PE: General Appearance: Cooperative. Well developed. Well nourished. NAD Head Exam: Normal inspection Neck Exam: Normal inspection. Non-tender. Normal alignment Pulmonary/Respiratory: Chest non-tender. Clear bilateral breath sounds. crackles in lungs Cardiovascular/Chest: tacycardic No murmurs. No JVD. Abdominal Exam: Normal bowel sounds. Soft. Nontender. No hepatosplenomegaly. No masses Ankle Exam: Lower extremities: ELVA VU RESIDENT Jul 10, 2024 19:58 JONO GUZMAN MD Jul 14, 2024 19:19
[2024-07-10] MEDS: SULFAMETHOX W/TRIMETH(800/160MG) DS TAB PO SCH (22:00)
--- NOTE | 2024-07-10 23:44 | DVHPN2 ---
Progress Note - Dictate Date Seen: Jul 10, 2024 Has the PT tested + for MRSA If YES, has PT been informed?: Yes Medical Necessity Reason Pt with a Central, PICC or Fol: No Subjective Patient seen and examined at bedside. On room air Overnight events reviewed. vital signs Vital Sign Date Time Temp Pulse Resp B/P (MAP) Pulse Ox O2 Delivery O2 Flow Rate FiO2 07/10/24 21:00 65 18 98/51 (67) 92 07/10/24 19:08 98.5 07/10/24 06:00 Room Air* 0 21 Total Intake and Output 07/09/24 07/09/24 07/10/24 14:59 22:59 06:59 Intake Total 1050 ml 50 ml Output Total 850 ml Balance 200 ml 50 ml medications Current Medications Medications Dose Ordered Sig/Sean Route Start Time Stop Time Status Last Admin Dose Admin Guaifenesin/ Dextromethorphan 10 ml Q4HP PRN PO 06/08/24 11:00 07/10/24 01:48 10 ML Morphine Sulfate 1 mg Q4HPRN PRN IV 06/16/24 14:00 07/01/24 15:14 1 MG Ondansetron HCl 4 mg Q4HP PRN IV 06/21/24 16:00 07/10/24 11:32 4 MG Metoclopramide HCl 10 mg Q8HPRN PRN IV 06/21/24 16:00 07/10/24 16:03 10 MG Diphenhydramine HCl 25 mg Q6HP PRN PO 06/21/24 17:00 07/05/24 23:37 25 MG Nystatin 5 ml QID MT 06/27/24 12:00 07/10/24 22:09 5 ML Carbamide Peroxide 5 drop Q12HR EACH EAR 06/27/24 10:00 07/09/24 21:48 5 DROP Pantoprazole Sodium 40 mg DAILY@0600 PO 06/29/24 06:00 07/10/24 05:57 40 MG Ursodiol 300 mg BID PO 06/28/24 22:00 07/10/24 12:35 300 MG Morphine Sulfate 2 mg Q4HPRN PRN IV 06/29/24 16:45 Docusate Sodium 200 mg DAILYPRN PRN PO 07/02/24 14:30 Artificial Tears 1 drop Q6HP PRN EACHEYE 07/03/24 14:00 07/04/24 05:19 1 DROP Sodium Chloride 2 gm BID PO 07/04/24 14:15 07/10/24 10:00 2 GM Enteral Nutritional Formula 240 ml TIDWM PO 07/06/24 08:00 07/10/24 18:45 240 ML Acetaminophen 650 mg Q6HP PRN PO 07/07/24 17:30 07/10/24 16:30 650 MG Cefepime HCl 50 ml @ 12.5 mls/hr Q8HR IV 07/09/24 22:00 07/10/24 22:08 12.5 MLS/HR Sodium Chloride 1,000 ml @ 100 mls/hr Q10H IV 07/10/24 14:15 07/10/24 15:00 100 MLS/HR Trimethoprim/ Sulfamethoxazole 1 tab TID PO 07/10/24 22:00 objective Gen.: Patient lying in bed in no apparent distress. On room air Head: Normocephalic, atraumatic. Eyes: EOMI/PERRLA. Ears: Normal hearing. Normal anatomy. Neck/trachea: Trachea midline, supple. Nose: Normal external anatomy. Mouth: Moist mucous membranes. Chest: Decreased air entry bilaterally. No wheezing or rhonchi. Cardiovascular: Positive S1, positive S2. Regular rate and rhythm. Abdomen: Positive bowel sounds in all 4 quadrants. Soft, non-tender, non- distended. : Deferred. Rectal: Deferred. Skin: Warm, dry. Intact. Extremities: 2+ radial pulses bilaterally. No lower extremity edema. Neuro: Awake, alert, oriented x3. No gross motor or sensory deficits. Cranial nerves II through XII intact. Gait not assessed. laboratory and microbiology Laboratory Tests 07/10/24 05:10 Test 07/10/24 05:10 Range/Units Serum Glucose 89 74-106 mg/dL Assessment/Plan Impression: Cough HIV (recent diagnosis) Anemia Elevated LFTs Atypical pneumonia SIADH Events: Remains on room air Supplemental oxygen PRN Improved Patient is spiking fevers. Continue antibiotics Follow up cultures Antiemetics for nausea/vomiting - Reglan On neutropenic precautions. ID recommendations appreciated Awaiting for HIV meds. Continue antifungal Nystatin suspension Continue ursodiol Monitor WBC. Incentive spirometry Monitor renal function Continue to monitor electrolytes closely - supplement as necessary Monitor sodium d/t hyponatremia 129 - on supplementation Nephrology recommendations appreciated GI recs appreciated. Stool O&P test negative DVT prophylaxis w/ Lovenox Patient is stable for discharge from the pulmonary standpoint Disposition per hospitalist Labs reviewed. Rest of plan as noted below Plan: On room air Supplemental oxygen PRN Titrate to keep O2 sats above 92%. 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 TB negative ID recommendations appreciated. Monitor renal function. Monitor electrolytes. Supplement as necessary. Monitor ins and outs. DVT prophylaxis. Prognosis: Guarded given patient's multiple co-morbidities. Rest of plan per hospitalist and other consultants. Thank you Dr. Cruz, for allowing me to participate in this patient's care. Further recommendations will depend on the patient's clinical course. Please do not hesitate to contact me if you have any questions or concerns. This medical document was created using an electronic medical record system with [employer] dictation system. Although these documentations are being carefully reviewed, there may still be some phonetic and typographical changes. The errors are purely typographical, due to imperfection on the software program, and do not reflect any compromise in the patient's medical care. Dietary Evaluation Review Comments: Encourage and monitor PO intake to meet 75% of his needs Expected Outcomes/Goals: free from symptoms, gradual weight gain. Plan discussed with: Patient, Other (AALIYAH Serna) ANGELIC OTOOLE MD Jul 10, 2024 23:44
[2024-07-11] VITALS (24 sets, daily range): BP systolic 92–119; BP diastolic 48–70; PULSE 91–122; RESP 16–22; TEMP 97.2–98.1; O2SAT 96–100
[2024-07-11] MEDS ORDERED: AMPICILLIN SOD 2GM INJ 2 GM in SODIUM CHL 0.9% 100 ML IV SCH
[2024-07-11 07:31] LABS: Anion Gap 15 (5-15); Carbon Dioxide 20 mmol/L (20-31); Potassium 3.9 mmol/L (3.5-5.1)
[2024-07-11 07:36] LABS: Glucose 104 mg/dL (74-106)
[2024-07-11 07:37] LABS: Magnesium 1.9 mg/dL (1.6-2.6)
[2024-07-11 07:44] LABS: Hemoglobin 7.2 g/dL (13.5-17.5); Red Blood Cells 2.74 10^6/uL (4.5-5.90)
[2024-07-11 07:46] LABS: Hematocrit 21.4 % (41.0-53.0); Mean Corpuscular Hemoglobin 26.4 pg (28.0-32.0); Mean Corpuscular Hgb Conc. 33.9 g/dL (32.0-36.0); Platelet Count (auto) 301 10^3/uL (140-450); Red Cell Distribution Width 18.5 % (11.8-14.3)
[2024-07-11 07:51] LABS: Blood Urea Nitrogen 52 mg/dL (9-23); Chloride 95 mmol/L (98-107); Sodium 130 mmol/L (136-145)
[2024-07-11 07:56] LABS: Basophils % (manual) 0 (0.0-2.0); Blast Cells 0; Eosinophils % (manual) 0 (0-7); Myelocytes % 0; Promyelocytes % 0; Reactive Lymphocytes 0
[2024-07-11] MEDS ORDERED: PIPERACILLIN-TAZOB 3.375GM 100 ML IV ONE (09:15)
[2024-07-11] MEDS: CLINDAMYCIN 600MG IV 50 ML IV ONE (09:45)
[2024-07-11] MEDS: LORazepam 2MG/ML-1ML VIAL IV PRN (10:36)
[2024-07-11 11:02] LABS: Albumin 3.7 g/dL (3.2-4.8)
[2024-07-11 11:03] LABS: Total Protein 6.8 g/dL (5.7-8.2)
[2024-07-11 11:09] LABS: Bilirubin, Direct 3.8 mg/dL (<0.3); Bilirubin, Total 4.6 mg/dL (0.2-1.0)
[2024-07-11] MEDS ORDERED: SODIUM CHLORIDE 0.9% 1,000 ML IV ONE (12:00)
--- NOTE | 2024-07-11 12:03 | DVH ---
EXAM: CT HEAD WITHOUT CONTRAST HISTORY: Seizure like activity COMPARISON: CT CHEST WITHOUT CONTRAST on DOS: 06/08/24 TECHNIQUE: Axial images of the head were obtained and reformatted in coronal and sagittal planes. All CT scans at this medical facility are performed using dose modulation techniques as appropriate t o a performed exam including the following: Automated exposure control was utilized; adjustment of th e MA and/or KV according to patient size; and use of iterative reconstruction technique. CT Dose: CTDI volume is 53.68 mGy. Dose-length product is 1058.02 mGy*cm FINDINGS: There is no evidence of acute intracranial hemorrhage, mass, mass effect midline shift. There is no h ydrocephalus or extra-axial fluid collection. [place]-white matter differentiation is maintained. The visualized paranasal sinuses and mastoid air cells are clear. The calvarium is intact. IMPRESSION: 1. No acute intracranial process. HS:Y
[2024-07-11 12:48] LABS: Band Neutrophils % (manual) 12; Lymphocytes % (manual) 1 (10.0-50.0); Metamyelocytes % 1; Monocytes % (manual) 4 (0-12)
[2024-07-11 12:49] LABS: Platelet Estimate Adequate
[2024-07-11] MEDS: levETIRAcetam 500 mg/100ml 100 ML IV ONE (13:05)
[2024-07-11] MEDS: DEXTROSE (50%) 50ML SYRG IV ONE (13:08)
[2024-07-11] MEDS ORDERED: PIPERACILLIN-TAZOB 3.375GM 100 ML IV SCH (14:00)
--- NOTE | 2024-07-11 14:07 | DVHPN2 ---
Progress Note Date Seen: Jul 11, 2024 Resident Creating Document: MING VALENTIN RESIDENT Has the PT tested + for MRSA If YES, has PT been informed?: Yes Medical Necessity Reason Pt with a Central, PICC or Fol: No Subjective Review of Systems Patient seen and examined at the bedside. Seizure-like activity, CT head is negative. LFTs downtrending. Creatinine increased to 3.46. Objective vital signs Vital Sign Date Time Temp Pulse Resp B/P (MAP) Pulse Ox O2 Delivery O2 Flow Rate FiO2 07/11/24 13:00 97.9 108 16 96/52 (67) 100 97.9 07/10/24 06:00 Room Air* 0 21 Total Intake and Output 07/10/24 07/10/24 07/11/24 15:00 23:00 07:00 Intake Total 500 ml 1615 ml 300 ml Balance 500 ml 1615 ml 300 ml medications Current Medications Medications Dose Ordered Sig/Sean Route Start Time Stop Time Status Last Admin Dose Admin Guaifenesin/ Dextromethorphan 10 ml Q4HP PRN PO 06/08/24 11:00 07/10/24 01:48 10 ML Morphine Sulfate 1 mg Q4HPRN PRN IV 06/16/24 14:00 07/01/24 15:14 1 MG Ondansetron HCl 4 mg Q4HP PRN IV 06/21/24 16:00 07/11/24 06:17 4 MG Metoclopramide HCl 10 mg Q8HPRN PRN IV 06/21/24 16:00 07/10/24 16:03 10 MG Diphenhydramine HCl 25 mg Q6HP PRN PO 06/21/24 17:00 07/05/24 23:37 25 MG Nystatin 5 ml QID MT 06/27/24 12:00 07/10/24 22:09 5 ML Carbamide Peroxide 5 drop Q12HR EACH EAR 06/27/24 10:00 07/09/24 21:48 5 DROP Pantoprazole Sodium 40 mg DAILY@0600 PO 06/29/24 06:00 07/10/24 05:57 40 MG Ursodiol 300 mg BID PO 06/28/24 22:00 07/10/24 12:35 300 MG Morphine Sulfate 2 mg Q4HPRN PRN IV 06/29/24 16:45 Docusate Sodium 200 mg DAILYPRN PRN PO 07/02/24 14:30 Artificial Tears 1 drop Q6HP PRN EACHEYE 07/03/24 14:00 07/04/24 05:19 1 DROP Sodium Chloride 2 gm BID PO 07/04/24 14:15 07/10/24 10:00 2 GM Enteral Nutritional Formula 240 ml TIDWM PO 07/06/24 08:00 07/10/24 18:45 240 ML Acetaminophen 650 mg Q6HP PRN PO 07/07/24 17:30 07/10/24 16:30 650 MG Sodium Chloride 1,000 ml @ 100 mls/hr Q10H IV 07/10/24 14:15 07/11/24 00:04 100 MLS/HR Clindamycin Phosphate 50 ml @ 50 mls/hr Q6HR IV 07/11/24 12:00 Lorazepam 1 mg Q5MINP PRN IV 07/11/24 10:15 07/11/24 10:58 1 MG Levetiracetam 100 ml @ 400 mls/hr BID IV 07/11/24 22:00 Examination Patient lying in bed, in no acute distress General: Well-built, afebrile, palor, mucosae are moist Cardiovascular: Regular S1 and S2. No murmurs, gallops or rubs. No JVD elevation. No pedal edema Respiratory: Normal B/L air entry on room air. Clear lung sounds on auscultation Abdomen: Soft, distended nontender to superficial touch, normoactive bowel sounds, no rebound tenderness, no organomegaly, no masses Genitourinary: Deferred MSK/skin: Mobilizes 4 limbs. Skin is dry and warm Neurological: No motor, no sensitive deficits, normal speech. Pupils are isocoric and reactive. Psych/Mental Status: A/Ox4 laboratory and microbiology Laboratory Tests 07/11/24 06:37 Test 07/11/24 06:37 Range/Units Serum Glucose 104 74-106 mg/dL Microbiology Date/Time Source Procedure Growth Status 07/07/24 06:10 Sputum Gram Stain - Final Complete 07/07/24 06:10 Respiratory Culture - Final Staphylococcus aureus Complete 07/06/24 17:06 Voided Urine Urine Culture - Final Enterococcus faecalis Complete 07/06/24 12:50 Blood Blood Culture - Final NO GROWTH AFTER 5 DAYS OF INCUBATION. Complete 07/02/24 20:23 Stool Stool Culture - Preliminary Resulted 07/02/24 20:23 Stool Shiga Toxin I & II - Final Resulted 06/21/24 14:30 Nose MRSA Screen - Final Complete Labs and/or images reviewed: Labs reviewed by me, Image(s) reviewed by me Problem List/Assessment/Plan Problem List/Assessment/Plan Transaminitis secondary to HIV versus medication induced, negative hepatitis panel, MRCP negative ? 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 no filling defects. Plan: Recommend transferring to higher level of care Stool sample sent for studies. Follow up with the ova and parasite. Stool WBC negative. Antibiotics per primary team LFTs are up trending . Consider stool studies for Cryptosporidium and isospora Continue supportive care Pantoprazole 40 mg daily LFTs trending down Patient will be started on to Biktarvy as an outpatient Avoid NSAIDs Plan discussed with patient in which all questions have been answered Case discussed with Dr. Robins Plan discussed with: Patient Dietary Evaluation Review Comments: Encourage and monitor PO intake to meet 75% of his needs Expected Outcomes/Goals: free from symptoms, gradual weight gain. MING VALENTIN RESIDENT Jul 11, 2024 14:07
[2024-07-11] MEDS: CLINDAMYCIN 600MG IV 50 ML IV SCH (14:14)
--- NOTE | 2024-07-11 14:22 | DVH ---
INDICATION: nenita TECHNIQUE: Multiple real-time sonographic images of the kidneys and bladder were obtained. COMPARISON: None FINDINGS: The right kidney measures 11.8 cm in length, which is normal in size. There is increased echogenicity of the right kidney. No hydronephrosis. The left kidney measures 12.7 cm in length, which is normal in size. There is increased echogenicity of the left kidney. No hydronephrosis. No large intraluminal masses are seen in the bladder. Prior to voiding the bladder volume measures volume 341 cc. IMPRESSION: Echogenic bilateral kidneys suggestive of chronic medical renal disease. No hydronephrosis.
--- NOTE | 2024-07-11 15:07 | DVHPN2 ---
Progress Note Date Seen: Jul 11, 2024 Has the PT tested + for MRSA If YES, has PT been informed?: Yes Medical Necessity Reason Pt with a Central, PICC or Fol: No Subjective Patient reports: Other (events noted--diarrhoea last night,altered mental status now , sitter bedside) Review of Systems: Deferred Objective vital signs Vital Sign Date Time Temp Pulse Resp B/P (MAP) Pulse Ox O2 Delivery O2 Flow Rate FiO2 07/11/24 14:28 97.7 122 16 108/66 (80) 98 97.7 07/10/24 06:00 Room Air* 0 21 Total Intake and Output 07/10/24 07/10/24 07/11/24 15:00 23:00 07:00 Intake Total 500 ml 1615 ml 300 ml Balance 500 ml 1615 ml 300 ml medications Current Medications Medications Dose Ordered Sig/Sean Route Start Time Stop Time Status Last Admin Dose Admin Guaifenesin/ Dextromethorphan 10 ml Q4HP PRN PO 06/08/24 11:00 07/10/24 01:48 10 ML Morphine Sulfate 1 mg Q4HPRN PRN IV 06/16/24 14:00 07/01/24 15:14 1 MG Ondansetron HCl 4 mg Q4HP PRN IV 06/21/24 16:00 07/11/24 06:17 4 MG Metoclopramide HCl 10 mg Q8HPRN PRN IV 06/21/24 16:00 07/10/24 16:03 10 MG Diphenhydramine HCl 25 mg Q6HP PRN PO 06/21/24 17:00 07/05/24 23:37 25 MG Nystatin 5 ml QID MT 06/27/24 12:00 07/10/24 22:09 5 ML Carbamide Peroxide 5 drop Q12HR EACH EAR 06/27/24 10:00 07/09/24 21:48 5 DROP Pantoprazole Sodium 40 mg DAILY@0600 PO 06/29/24 06:00 07/10/24 05:57 40 MG Ursodiol 300 mg BID PO 06/28/24 22:00 07/10/24 12:35 300 MG Morphine Sulfate 2 mg Q4HPRN PRN IV 06/29/24 16:45 Docusate Sodium 200 mg DAILYPRN PRN PO 07/02/24 14:30 Artificial Tears 1 drop Q6HP PRN EACHEYE 07/03/24 14:00 07/04/24 05:19 1 DROP Sodium Chloride 2 gm BID PO 07/04/24 14:15 07/10/24 10:00 2 GM Enteral Nutritional Formula 240 ml TIDWM PO 07/06/24 08:00 07/10/24 18:45 240 ML Acetaminophen 650 mg Q6HP PRN PO 07/07/24 17:30 07/10/24 16:30 650 MG Sodium Chloride 1,000 ml @ 100 mls/hr Q10H IV 07/10/24 14:15 07/11/24 00:04 100 MLS/HR Clindamycin Phosphate 50 ml @ 50 mls/hr Q6HR IV 07/11/24 12:00 07/11/24 14:14 50 MLS/HR Lorazepam 1 mg Q5MINP PRN IV 07/11/24 10:15 07/11/24 10:58 1 MG Levetiracetam 100 ml @ 400 mls/hr BID IV 07/11/24 22:00 Examination: GENERAL:Abnormal, MSK:Normal, SKIN:Abnormal, NEURO:Abnormal, :Abnormal laboratory and microbiology Laboratory Tests 07/11/24 06:37 Test 07/11/24 06:37 Range/Units Serum Glucose 104 74-106 mg/dL Microbiology Date/Time Source Procedure Growth Status 07/07/24 06:10 Sputum Gram Stain - Final Complete 07/07/24 06:10 Respiratory Culture - Final Staphylococcus aureus Complete 07/06/24 17:06 Voided Urine Urine Culture - Final Enterococcus faecalis Complete 07/06/24 12:50 Blood Blood Culture - Final NO GROWTH AFTER 5 DAYS OF INCUBATION. Complete 07/02/24 20:23 Stool Ova and Parasites - Final Complete 07/02/24 20:23 Stool - Final Complete 06/21/24 14:30 Nose MRSA Screen - Final Complete Problem List/Assessment/Plan Problem List/Assessment/Plan VEL in the setting of hypotension/shock +nephrotoxicity from Abx hyponatremia SIADH plus Bactrim use recently hyperkalemia AIDS PCP PNA leukopenia Recommendations NS iv as ordered continuously maintain map>65, vasopressors as needed chua kidney US,,strict i and o events noted LP possibly nestor hester on hold Plan discussed with: Other My Orders My Orders Orders - BAILEE WATTERS MD Procedure Category Date Status Time Insert Chua Catheter STANLEY 07/11/24 In Process 13:20 Kidney US 07/11/24 Resulted 13:20 Strict I & O STANLEY 07/11/24 In Process 14:28 Dietary Evaluation Review Comments: Encourage and monitor PO intake to meet 75% of his needs Expected Outcomes/Goals: free from symptoms, gradual weight gain. BAILEE WATTERS MD Jul 11, 2024 15:07
[2024-07-11] MEDS: SODIUM CHLORIDE 0.9% 250 ML IV ONE (16:14)
[2024-07-11] MEDS ORDERED: cefTRIAXone 2GM/50ML D5W 50 ML IV ONE (18:15)
--- NOTE | 2024-07-11 19:06 | DVHPNRES ---
Progress Note Date Seen: Jul 11, 2024 Resident Creating Document: REGINE OCHOA RESIDENT Has the PT tested + for MRSA If YES, has PT been informed?: Yes Medical Necessity Reason Pt with a Central, PICC or Fol: No Subjective Review of Systems pt seen and examined at bedside had seizure like activity in the AM was given ativan later had LP in the PM ROS could not be done as patient is confused Objective vital signs Vital Sign Date Time Temp Pulse Resp B/P (MAP) Pulse Ox O2 Delivery O2 Flow Rate FiO2 07/11/24 18:09 110 16 102/60 07/11/24 17:00 97.7 98 97.7 07/10/24 06:00 Room Air* 0 21 Total Intake and Output 07/10/24 07/10/24 07/11/24 15:00 23:00 07:00 Intake Total 500 ml 1615 ml 300 ml Balance 500 ml 1615 ml 300 ml medications Current Medications Medications Dose Ordered Sig/Sean Route Start Time Stop Time Status Last Admin Dose Admin Guaifenesin/ Dextromethorphan 10 ml Q4HP PRN PO 06/08/24 11:00 07/10/24 01:48 10 ML Morphine Sulfate 1 mg Q4HPRN PRN IV 06/16/24 14:00 07/11/24 18:09 1 MG Ondansetron HCl 4 mg Q4HP PRN IV 06/21/24 16:00 07/11/24 06:17 4 MG Metoclopramide HCl 10 mg Q8HPRN PRN IV 06/21/24 16:00 07/10/24 16:03 10 MG Diphenhydramine HCl 25 mg Q6HP PRN PO 06/21/24 17:00 07/05/24 23:37 25 MG Nystatin 5 ml QID MT 06/27/24 12:00 07/10/24 22:09 5 ML Pantoprazole Sodium 40 mg DAILY@0600 PO 06/29/24 06:00 07/10/24 05:57 40 MG Ursodiol 300 mg BID PO 06/28/24 22:00 07/10/24 12:35 300 MG Morphine Sulfate 2 mg Q4HPRN PRN IV 06/29/24 16:45 Docusate Sodium 200 mg DAILYPRN PRN PO 07/02/24 14:30 Artificial Tears 1 drop Q6HP PRN EACHEYE 07/03/24 14:00 07/04/24 05:19 1 DROP Sodium Chloride 2 gm BID PO 07/04/24 14:15 07/10/24 10:00 2 GM Enteral Nutritional Formula 240 ml TIDWM PO 07/06/24 08:00 07/10/24 18:45 240 ML Acetaminophen 650 mg Q6HP PRN PO 07/07/24 17:30 07/10/24 16:30 650 MG Sodium Chloride 1,000 ml @ 100 mls/hr Q10H IV 07/10/24 14:15 07/11/24 00:04 100 MLS/HR Lorazepam 1 mg Q5MINP PRN IV 07/11/24 10:15 07/11/24 10:58 1 MG Levetiracetam 100 ml @ 400 mls/hr BID IV 07/11/24 22:00 Cefepime HCl 50 ml @ 12.5 mls/hr Q12HR IV 07/12/24 10:00 Linezolid 300 ml @ 150 mls/hr Q12HR IV 07/11/24 22:00 Examination Examination General Appearance: confused HEENT: EOMI Respiratory: Clear to auscultation, Normal air movement Cardiovascular: Regular rate, Normal S1, Normal S2 Abdominal: Normal bowel sounds Extremities: No cyanosis, No edema, Normal pulses, No tenderness/swelling Skin: No rashes, No breakdown Neuro: confused , hypertonic laboratory and microbiology Laboratory Tests 07/11/24 06:37 Test 07/11/24 06:37 Range/Units Serum Glucose 104 74-106 mg/dL Microbiology Date/Time Source Procedure Growth Status 07/07/24 06:10 Sputum Gram Stain - Final Complete 07/07/24 06:10 Respiratory Culture - Final Staphylococcus aureus Complete 07/06/24 17:06 Voided Urine Urine Culture - Final Enterococcus faecalis Complete 07/06/24 12:50 Blood Blood Culture - Final NO GROWTH AFTER 5 DAYS OF INCUBATION. Complete 07/02/24 20:23 Stool Ova and Parasites - Final Complete 07/02/24 20:23 Stool - Final Complete 06/21/24 14:30 Nose MRSA Screen - Final Complete Labs and/or images reviewed: Labs reviewed by me, Image(s) reviewed by me Problem List/Assessment/Plan Problem List/Assessment/Plan Assessment/plan Neurology #?Seizure due to ?Meningitis -Head CT -ativan prn -IV kepra -neurology consult #?Meningitis -IV antibiotics as per ID -LP done Cardiology # shock likely due to septic shock -patient is off vasopressors since yesterday -started on IV fluids -IV fluids per ID Respiratory # acute hypoxic respiratory 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 -currently on room air #Multifocal pneumonia, Pneumocystis Jerovoci or Carini Pneumonia ( opportunistic infection) -patient was initially on Bactrim was discontinued -infectious disease on board -IV antibiotics #Pulmonary nodule, 2 cm in size -seen on imaging GI #Transaminitis with elevated bilirubin ?cholangiopathy/medication induced -monitor Urology #UTI Enterococcus faecalis -ampicillin stopped by ID Endocrine #Left adrenal nodule -cortisol AM Hematology/Oncology # microcytic anemia Monitor # leukopenia with neutropenic fever ?likely due to sepsis -monitor Nephrology #VEL due to ?bacterim use -nephrology on board -IV fluids #Hyponatremia ?SIADH due to PCP pneumonia/bacterim use -monitor #hypokalemia -corrected #Hyperkalemia -corrected Infectious disease #oral candidiasis -nystatin swish and swallow #AIDS, CD4 count less than 10 -ID on board #Acid-fast bacilli culture positive ? Rule out tuberculosis/MAC infection -ID on board #Pneumocystis Jerovoci or Carini Pneumonia ( opportunistic infection) -ID on board Social Homosexual Lines peripheral IV Drips off norepi drip DVT prophylaxis SCD PUD prophylaxis not indicated nutrition NPO considering aspiration risk Code status discussed with the pt >21min , FULL CODE Critical care time excluding procedures : 87 minutes pt upgraded to STELLA Case discussion with Dr Pettit Plan discussed with: Other My Orders My Orders Orders - REGINE OCHOA RESIDENT Procedure Category Date Status Time Urine Bacterial [place] 07/11/24 In Process Culture 14:57 Lorazepam 2mg/Ml Inj PHA 07/11/24 In Process (Ativan Inj) 10:[address] 07/11/24 Resulted 10:18 Blood Culture [place] 07/11/24 Uncollected 10:19 Levetiracetam 500 PHA 07/11/24 In Process Mg/100ml (Levetiraceta 22:00 Npo (Nothing By DIET 07/11/24 Transmitted Mouth) Diet Dinner Transfer Orders XFER 2/5/25 Transmitted 17:19 Complete Blood Count LAB 07/12/24 Verified 04:00 Comprehensive LAB 07/12/24 Verified Metabolic Panel 04:00 Magnesium LAB 07/12/24 Verified 04:00 Abg W/ Co-Ox RT 07/12/24 Verified 04:00 Basic Metabolic Panel LAB 07/11/24 Verified 19:04 Magnesium LAB 07/11/24 Verified 19:04 Dietary Evaluation Review Comments: Encourage and monitor PO intake to meet 75% of his needs Expected Outcomes/Goals: free from symptoms, gradual weight gain. Date of Service: Jul 11, 2024 Billing Provider: ANDRE PETTIT MD Common Visit Codes: 61544-[id number] CARE 30-74 MIN, [id number] CARE-EACH +30MIN REGINE OCHOA RESIDENT Jul 11, 2024 19:06 ANDRE PETTIT MD Jul 12, 2024 11:58
[2024-07-11] MEDS: CEFEPIME 2GM/50ML NS 50 ML IV ONE (19:12)
--- NOTE | 2024-07-11 19:38 | DVHPN2 ---
ELVA VU RESIDENT 07/11/248: Consult Progress Note Date Seen: Jul 11, 2024 Subjective Patient reports: No new complaints Other Systems: Patient seen and examined at bedside. Patient became altered, probably GCS around 10, not able to answer questions. However he is protecting his airway. Possible seizure-like activity observed by primary care team. Physical Exam General Appearance: Altered, protecting his airway, responding to pain stimuli, reactive pupils, Head Exam: Normal inspection Neck Exam: Normal inspection. Non-tender. Normal alignment Pulmonary/Respiratory: Chest non-tender. Clear bilateral breath sounds Cardiovascular/Chest: Regular rate and rhythm. No murmurs. No JVD. Peripheral Pulses: 2+ Radial (R). 2+ Radial (L). 2+ Pedal (R). 2+ Pedal (L) Abdominal Exam: Normal bowel sounds. Soft. Nontender. No hepatospenomegaly. No masses Ankle Exam: Negative ankle edema Lower extremities: Negative lower extremity edema Neuro/Mental Status: Alert, not oriented to time place and person. Pupillary reflex present, upper and and lower extremity muscular strength 4/5. Sensory examination can not be done. Objective vital signs Vital Sign Date Time Temp Pulse Resp B/P (MAP) Pulse Ox O2 Delivery O2 Flow Rate FiO2 07/11/24 18:39 98 16 94/52 07/11/24 17:00 97.7 98 97.7 07/10/24 06:00 Room Air* 0 21 Total Intake and Output 07/10/24 07/10/24 07/11/24 15:00 23:00 07:00 Intake Total 500 ml 1615 ml 300 ml Balance 500 ml 1615 ml 300 ml medications Current Medications Medications Dose Ordered Sig/Sean Route Start Time Stop Time Status Last Admin Dose Admin Guaifenesin/ Dextromethorphan 10 ml Q4HP PRN PO 06/08/24 11:00 07/10/24 01:48 10 ML Morphine Sulfate 1 mg Q4HPRN PRN IV 06/16/24 14:00 07/11/24 18:09 1 MG Ondansetron HCl 4 mg Q4HP PRN IV 06/21/24 16:00 07/11/24 06:17 4 MG Metoclopramide HCl 10 mg Q8HPRN PRN IV 06/21/24 16:00 07/10/24 16:03 10 MG Diphenhydramine HCl 25 mg Q6HP PRN PO 06/21/24 17:00 07/05/24 23:37 25 MG Nystatin 5 ml QID MT 06/27/24 12:00 07/10/24 22:09 5 ML Pantoprazole Sodium 40 mg DAILY@0600 PO 06/29/24 06:00 07/10/24 05:57 40 MG Ursodiol 300 mg BID PO 06/28/24 22:00 07/10/24 12:35 300 MG Morphine Sulfate 2 mg Q4HPRN PRN IV 06/29/24 16:45 Docusate Sodium 200 mg DAILYPRN PRN PO 07/02/24 14:30 Artificial Tears 1 drop Q6HP PRN EACHEYE 07/03/24 14:00 07/04/24 05:19 1 DROP Sodium Chloride 2 gm BID PO 07/04/24 14:15 07/10/24 10:00 2 GM Enteral Nutritional Formula 240 ml TIDWM PO 07/06/24 08:00 07/10/24 18:45 240 ML Acetaminophen 650 mg Q6HP PRN PO 07/07/24 17:30 07/10/24 16:30 650 MG Sodium Chloride 1,000 ml @ 100 mls/hr Q10H IV 07/10/24 14:15 07/11/24 00:04 100 MLS/HR Lorazepam 1 mg Q5MINP PRN IV 07/11/24 10:15 07/11/24 10:58 1 MG Levetiracetam 100 ml @ 400 mls/hr BID IV 07/11/24 22:00 Cefepime HCl 50 ml @ 12.5 mls/hr Q12HR IV 07/12/24 10:00 Linezolid 300 ml @ 150 mls/hr Q12HR IV 07/11/24 22:00 laboratory and microbiology Laboratory Tests 07/11/24 06:37 Test 07/11/24 06:37 Range/Units Serum Glucose 104 74-106 mg/dL Problem List/Assessment/Plan Problem List/Assessment/Plan Pneumocystis Jerovoci or Carini Pneumonia ( opportunistic infection) AIDS, CD4 count less than 10 Acid-fast bacilli culture positive ? Rule out tuberculosis/MAC infection Neutropenic fever UTI Enterococcus faecalis Multifocal pneumonia Septic shock due to pneumonia: Currently off vasopressor Transaminitis with elevated bilirubin ? Age cholangiopathy/medication induced Hyponatremia likely due to SIADH Pulmonary nodule, 2 cm in size Left adrenal nodule Severe anemia Immunosuppressed Homosexual Plan/recommendation Dr. Guzman -Initiate cefepime and linezolid for brought coverage of antibiotic given patient is in septic shock, requiring IV fluid bolus, vancomycin has been discontinued given worsening kidney function, we will continue with linezolid at this point. Oral Bactrim also has been discontinued given worsening kidney function. At this point given patient's saturating well on oxygen, we will hold off for PJP treatment at this point, we will more focus on underlying septic shock, we will continue with broad-spectrum at this point and we will follow with acid-fast bacilli cultures once available, could be patient have disseminated tuberculosis/MAC infection. -We will go ahead with pancultures and CT scan of abdomen and pelvis and chest given brought range of pathogens could be causative for worsening sepsis. Further recommendation based on cultures and imaging studies and clinical status -Holding anti-retroviral therapy until rule out tuberculosis/mac infection, pending further lab results of acid-fast bacilli culture, three acid-fast bacilli smear negative, two acid-fast bacilli PCR negative. HIV-1 viral load RNA:[id number]. We will need ART therapy, currently holding until ruled out possible active TB/MAC infection and cryptococcal infection. -Continue airborne/droplet isolation, with reverse isolation. -respiratory culture came back positive for Staphylococcus aureus. -Follow-up with acid-fast bacilli blood and stool, toxoplasma accordingly IgM/IgG G, cryptococcal antibody, chlamydia/gonorrhea amplification test, cytomegalovirus PCR. -Patient will also need HIV Genosure plus integrace for sensitivity to anti retroviral therapy -MRI brain negative for acute intracranial abnormality, less likely cryptococcus infection. -Check cMV PCR given possibility of low-level viremia -GI consultation for continue monitoring liver function -Pending G6PD test -Stool study negative for Campylobacter, Shiga toxin. -Bronchoscopy on 06/12/2024: Positive for PCP, negative for acid-fast bacilli. -MRCP 06/25 shows no biliary ductal dilation. no filling defects. Poor prognosis, guarded. Plan discussed with: Other (RN) Dietary Evaluation Review Comments: Encourage and monitor PO intake to meet 75% of his needs Expected Outcomes/Goals: free from symptoms, gradual weight gain. JONO GUZMAN MD 07/14/241921: Consult Progress Note Problem List/Assessment/Plan Problem List/Assessment/Plan _ Attending Addendum: Case discussed with Dr. Vu. at the time of visit. Patient is an HIV patient , 28 years old and diagnosed in may 2024 [facility] and transferred to [facility] . Patient seen by myself and Dr Benito reviewed chart and disscussed paln with Dr Benito . Patient CD4 count of 10 , viral load over 1 million and patient presented with acute hypoxic respiratory failure fevers and has been in hospital for about 1 month and in ICU requiring levofed . has a bronchoscopy done showing BAL cytology finding consistency with PJP pneumonia so started on bactrum from 7 days and then discontinued due to patient developing LFT elevation as well as hyperbilirubinemia . switched to climdamycin then discontinued due to patient improving and put on room ai r, evaluated for TB , AFB sputum has been negative and MTBPCR x2 has been negative however after 2 weeks 1 of patients sputum is growing AFB organism thats yet to be identified. feels a bit weak and has been having weightloss , fevers , chills for the last several months, last febrile was 48 hours ago with a temp of 100.5 and is neuropenic with a whitecount of 1.2 and is tachycardic with HR of 128 . low body weight of 54.1 kg and kexia and poor historia , having anemia with a hemoglobin of 7.6 which has been going down during admission . problem list includes HIV Aids , pneumonia , multi opportunistic organism infection including PJP and possibly TB vs Mac infection , cytopenias , neutropenic fever , sepsis , anemia , UTI with enterococcus . 12 point review systems and vitals signs and relevant imaging has been reviewed by me . plan for patient would be to stop ampicillin and start vancomycin and cefamine empirically due to fevers and unresolved sepsis and continue until fevers have resolved for 48 hours and meutropenia has improved . would check prior hold HAART therapy until TB infection is ruled out as cryptococal toxoplasm and CMV infections . check serologies for these and would restart patient on bactrum to finish 21 day course , will monitor LFTs and anemia . recommend checking AFB blood in stool for further evaluation of MAC infection and follow up on AFB cultures . continue airborne and droplet isolation precautions 2/; continues to be febrile and was reported by Dr Vu in the AM to be more alert , lethargic and not responding to questions but responding to deep sternal rub . patients whitecount is rising and kidney function is worsening. Is on room air and can forgo PJP treatments since it is unlikely playing a large role in septic picture and patietns on room ait . Patient weighs 106 lbs , so attempt to lower bactrum to 1 double strength tablet 3x a day and monitor kidney function , can stop vancomycin in setting of VEL and will switch to linasolid and continue cefepime. If mentation does not improve in next 24 hours patient will need lumbar puncture. recommend repeating blood cultures and doing a chest ct of abdomen and pelvis 07/11: remains uptunded but is able to protenct airway , underwent a lumbar puncture earlier in the day and is still not responsive and pulling out lines . no fever in the last 24 hours but patient is having rising keratin , BUN 68 which is possibly contributing to an altered mental staus . however would want to rule out any type of infectious meningitis in the setting of AIDs for lumbar punture recommend bacterial AFB fungal culture , viral culture , CMV antibuody , VZV antibody , cryptococcus antibody , coxy antibody , RPR , HSVPR , PCR , VDRL . Continue linazolid and cefepime which will provide patient with adequate menegitis coverage . unclear ideology staus at this stime but suspect its a combination of HIV encephalopathy with providing a low baseline mentation in setting of uremia , worsening kidney function may be attributable to bactrum vs HIV nephropathy . Patients BP is holding steady a bit on the low side , waiting to follow up on AFB culture speciation to see if we are attempting to treat MAC vs TB . Hold of on HAART therapy for now while awaiting results for cryptococcal and AFB studies. will hold off bactrum to avoid worsening keratin from nephrotoxicity and PJP is not a priority to treat at this time Otherwise reviewed and agree with Dr Vu's findings, A/P as written in note. PE: General Appearance: Cooperative. Well developed. Well nourished. NAD Head Exam: Normal inspection Neck Exam: Normal inspection. Non-tender. Normal alignment Pulmonary/Respiratory: Chest non-tender. Clear bilateral breath sounds. crackles in lungs Cardiovascular/Chest: tacycardic No murmurs. No JVD. Abdominal Exam: Normal bowel sounds. Soft. Nontender. No hepatosplenomegaly. No masses Ankle Exam: Lower extremities: ELVA Bonner MD RESIDENT Jul 11, 2024 19:38 JONO GUZMAN MD Jul 14, 2024 19:22
[2024-07-11 20:34] LABS: Protein, CSF 46.8 mg/dL (15-45)
[2024-07-11 20:37] LABS: Anion Gap 13 (5-15); Chloride 99 mmol/L (98-107); Potassium 4.2 mmol/L (3.5-5.1)
[2024-07-11 20:43] LABS: Glucose 82 mg/dL (74-106); Magnesium 2.1 mg/dL (1.6-2.6)
[2024-07-11 20:44] LABS: Blood Urea Nitrogen 68 mg/dL (9-23); Calcium 8.5 mg/dL (8.7-10.4); Carbon Dioxide 18 mmol/L (20-31); Sodium 130 mmol/L (136-145)
[2024-07-11] MEDS ORDERED: DEXTROSE (50%) 50ML SYRG IV PRN (20:45)
[2024-07-11] MEDS ORDERED: cefTRIAXone 2GM/50ML D5W 50 ML IV SCH (21:00)
[2024-07-11 21:10] LABS: Description,CSF CLEAR
--- NOTE | 2024-07-11 22:36 | DVHNC2 ---
Lumbar Puncture Indication: Evaluation for possible, Infection Procedure: Left-lateral decubitus Success: Was successful CSF Fluid: Clear Notes PROCEDURE SUMMARY: A time-out was performed. My hands were washed immediately prior to the procedure. I wore a surgical cap, mask with protective eyewear, sterile gown and sterile gloves throughout the procedure. The patient was placed in left lateral decubitus position with help from the nursing staff. The area was cleansed and draped in usual sterile fashion using Betadine scrub. Anesthesia was achieved with 1% lidocaine. spinal needle was placed in the L4-L5 lumbar interspace. clear, colorless cerebral spinal fluid was obtained. CSF was collected into 4 tubes. These were sent for the usual tests. A sterile bandaid was placed over the puncture site. The patient had no immediate complications and tolerated the procedure well. Estimated blood loss was 2ml. Favian Moctezuma Resident David Pettit MD Date of Service: Jul 11, 2024 Billing Provider: ANDRE PETTIT MD Common Visit Codes: PROCEDURE ONLY Procedure Codes: 26418-[id number] PUNCTURE FAVIAN MOCTEZUMA Jul 11, 2024 22:36 ANDRE PETTIT MD Jul 15, 2024 13:16
[2024-07-11] MEDS: levETIRAcetam 500 mg/100ml 100 ML IV SCH (23:25)
[2024-07-11] MEDS: LINEZOLID 600MG/300ML 300 ML IV SCH (23:28)
[2024-07-11 23:29] LABS: CSF White Blood Cells 5 CUMM (0-5)
[2024-07-11] MEDS: InsuLIN REG 1unit/0.01ml Soln (100units/ml) SC SCH (23:29)
[2024-07-11] MEDS: ACCU-CHEK COMFORT CURVE STRIP VI SCH (23:41)
[2024-07-12] VITALS (53 sets, daily range): BP systolic 86–113; BP diastolic 44–71; PULSE 79–125; RESP 15–24; TEMP 96.4–99.1; O2SAT 93–98
[2024-07-12 07:16] LABS: Mean Corpuscular Hgb Conc. 33.2 g/dL (32.0-36.0); White Blood Cell 4.4 10^3/uL (4.4-10.8)
[2024-07-12 07:19] LABS: Hematocrit 19.2 % (41.0-53.0); Mean Corpuscular Hemoglobin 25.9 pg (28.0-32.0); Mean Corpuscular Volume 78.1 fL (80.0-100.0); Platelet Count (auto) 331 10^3/uL (140-450); Red Blood Cells 2.45 10^6/uL (4.5-5.90); Red Cell Distribution Width 18.2 % (11.8-14.3)
[2024-07-12 07:30] LABS: Hemoglobin 6.4 g/dL (13.5-17.5)
[2024-07-12 07:31] LABS: Basophils % (manual) 0 (0.0-2.0); Blast Cells 0; Myelocytes % 0; Promyelocytes % 0; Reactive Lymphocytes 0
[2024-07-12 07:37] LABS: Anion Gap 16 (5-15); BUN/Creatinine Ratio 15.8 (10.0-20.0); Chloride 100 mmol/L (98-107); Potassium 3.8 mmol/L (3.5-5.1)
[2024-07-12 07:38] LABS: Albumin 3.3 g/dL (3.2-4.8)
[2024-07-12 07:40] LABS: Alanine Aminotransferase 50 U/L (7-40); Alkaline Phosphatase 395 U/L (46-116); Aspartate Aminotransferase 79 U/L (13-40); Blood Urea Nitrogen 68 mg/dL (9-23); Calcium 8.5 mg/dL (8.7-10.4); Carbon Dioxide 16 mmol/L (20-31); Glucose 73 mg/dL (74-106); Sodium 132 mmol/L (136-145)
[2024-07-12 07:41] LABS: Bilirubin, Total 3.2 mg/dL (0.2-1.0)
[2024-07-12 08:00] LABS: Band Neutrophils % (manual) 10; Eosinophils % (manual) 1 (0-7); Lymphocytes % (manual) 3 (10.0-50.0); Metamyelocytes % 1; Monocytes % (manual) 6 (0-12)
[2024-07-12 08:01] LABS: Anisocytosis Slight; Platelet Estimate Adequate
[2024-07-12] MEDS ORDERED: D5W 5% 1,000 ML IV SCH (09:00)
[2024-07-12 11:16] LABS: Base Excess -7.4 mmol/L (-2.0-3.0)
[2024-07-12] MEDS: ACETAMINOPHEN 650 MG RECT SUPP PR ONE (11:41)
--- NOTE | 2024-07-12 11:56 | DVHPN2 ---
Progress Note Date Seen: Jul 12, 2024 Has the PT tested + for MRSA If YES, has PT been informed?: Yes Medical Necessity Reason Pt with a Central, PICC or Fol: No Subjective Patient reports: Other (altered/sitter bedside) Review of Systems: Deferred Objective vital signs Vital Sign Date Time Temp Pulse Resp B/P (MAP) Pulse Ox O2 Delivery O2 Flow Rate FiO2 07/12/24 11:41 99.1 07/12/24 09:00 124 21 113/59 (77) 97 07/11/24 20:00 Room Air* 0 21 Total Intake and Output 07/11/24 07/11/24 07/12/24 15:00 23:00 07:00 Intake Total 100 ml 250 ml 450 ml Output Total 300 ml 200 ml Balance 100 ml -50 ml 250 ml medications Current Medications Medications Dose Ordered Sig/Sean Route Start Time Stop Time Status Last Admin Dose Admin Guaifenesin/ Dextromethorphan 10 ml Q4HP PRN PO 06/08/24 11:00 07/10/24 01:48 10 ML Morphine Sulfate 1 mg Q4HPRN PRN IV 06/16/24 14:00 07/11/24 18:09 1 MG Ondansetron HCl 4 mg Q4HP PRN IV 06/21/24 16:00 07/11/24 06:17 4 MG Metoclopramide HCl 10 mg Q8HPRN PRN IV 06/21/24 16:00 07/12/24 00:58 10 MG Diphenhydramine HCl 25 mg Q6HP PRN PO 06/21/24 17:00 07/05/24 23:37 25 MG Nystatin 5 ml QID MT 06/27/24 12:00 07/10/24 22:09 5 ML Pantoprazole Sodium 40 mg DAILY@0600 PO 06/29/24 06:00 07/10/24 05:57 40 MG Ursodiol 300 mg BID PO 06/28/24 22:00 07/10/24 12:35 300 MG Morphine Sulfate 2 mg Q4HPRN PRN IV 06/29/24 16:45 Docusate Sodium 200 mg DAILYPRN PRN PO 07/02/24 14:30 Artificial Tears 1 drop Q6HP PRN EACHEYE 07/03/24 14:00 07/04/24 05:19 1 DROP Sodium Chloride 2 gm BID PO 07/04/24 14:15 07/10/24 10:00 2 GM Enteral Nutritional Formula 240 ml TIDWM PO 07/06/24 08:00 07/10/24 18:45 240 ML Acetaminophen 650 mg Q6HP PRN PO 07/07/24 17:30 07/10/24 16:30 650 MG Sodium Chloride 1,000 ml @ 100 mls/hr Q10H IV 07/10/24 14:15 07/12/24 07:21 100 MLS/HR Lorazepam 1 mg Q5MINP PRN IV 07/11/24 10:15 07/12/24 09:16 1 MG Levetiracetam 100 ml @ 400 mls/hr BID IV 07/11/24 22:00 07/12/24 11:39 400 MLS/HR Cefepime HCl 50 ml @ 12.5 mls/hr Q12HR IV 07/12/24 10:00 Linezolid 300 ml @ 150 mls/hr Q12HR IV 07/11/24 22:00 07/12/24 11:37 150 MLS/HR Diagnostic Test (Pha) 1 strip IQ4HR 07/12/24 00:00 07/12/24 08:15 1 STRIP Insulin Human Regular IQ4HR SC 07/12/24 00:00 Dextrose 50 ml UD PRN IV 07/11/24 20:45 Examination: GENERAL:Abnormal, LUNGS:Abnormal, CVS:Abnormal (tachy), NEURO:Abnormal laboratory and microbiology Laboratory Tests 07/12/24 06:28 Test 07/12/24 06:28 Range/Units Serum Glucose 73 L 74-106 mg/dL Microbiology Date/Time Source Procedure Growth Status 07/11/24 19:32 Other Pending Resulted 07/11/24 19:32 Other Pending Resulted 07/11/24 19:32 Other Pending Resulted 07/11/24 19:32 Other Pending Resulted 07/11/24 19:32 Other - Final See Separate Report... Resulted 07/11/24 19:32 Cerebral Spinal Fluid Gram Stain - Final Resulted 07/11/24 19:32 Cerebral Spinal Fluid CSF Culture & Gram Stain (Tube 2) M Pending Resulted 07/11/24 14:54 Voided Urine Urine Culture - Preliminary Resulted 07/07/24 06:10 Sputum Gram Stain - Final Complete 07/07/24 06:10 Respiratory Culture - Final Staphylococcus aureus Complete 07/06/24 12:50 Blood Blood Culture - Final NO GROWTH AFTER 5 DAYS OF INCUBATION. Complete 07/02/24 20:23 Stool Ova and Parasites - Final Complete 07/02/24 20:23 Stool - Final Complete Problem List/Assessment/Plan Problem List/Assessment/Plan VEL in the setting of hypotension/sepsis +nephrotoxicity from Abx hyponatremia sec to Bactrim use recently hyperkalemia AIDS PCP PNA leukopenia Recommendations NS iv as ordered continuously maintain map>65, vasopressors as needed chua kidney US noted ,,strict i and o events noted LP done consideration for dialysis should renal function continues to deteriorate in next 24-48hrs abg Plan discussed with: Other (hospitalist) My Orders My Orders Orders - BAILEE WATTERS MD Procedure Category Date Status Time Insert Chua Catheter [place] 07/11/24 In Process 13:20 Kidney US 07/11/24 Resulted 13:20 Strict I & O [place] 07/11/24 In Process 14:28 Basic Metabolic Panel LAB 07/13/24 Verified 05:00 Basic Metabolic Panel LAB 07/14/24 Verified 05:00 Basic Metabolic Panel LAB 07/15/24 Verified 05:00 Basic Metabolic Panel LAB 07/16/24 Verified 05:00 Basic Metabolic Panel LAB 07/17/24 Verified 05:00 Basic Metabolic Panel LAB 07/18/24 Verified 05:00 Dietary Evaluation Review Comments: Encourage and monitor PO intake to meet 75% of his needs Expected Outcomes/Goals: free from symptoms, gradual weight gain. BAILEE WATTERS MD Jul 12, 2024 11:55
--- NOTE | 2024-07-12 12:02 | DVHPN2 ---
Progress Note Date Seen: Jul 12, 2024 Resident Creating Document: MING VALENTIN RESIDENT Has the PT tested + for MRSA If YES, has PT been informed?: Yes Medical Necessity Reason Pt with a Central, PICC or Fol: No Objective vital signs Vital Sign Date Time Temp Pulse Resp B/P (MAP) Pulse Ox O2 Delivery O2 Flow Rate FiO2 07/12/24 11:41 99.1 07/12/24 09:00 124 21 113/59 (77) 97 07/11/24 20:00 Room Air* 0 21 Total Intake and Output 07/11/24 07/11/24 07/12/24 15:00 23:00 07:00 Intake Total 100 ml 250 ml 450 ml Output Total 300 ml 200 ml Balance 100 ml -50 ml 250 ml medications Current Medications Medications Dose Ordered Sig/Sean Route Start Time Stop Time Status Last Admin Dose Admin Guaifenesin/ Dextromethorphan 10 ml Q4HP PRN PO 06/08/24 11:00 07/10/24 01:48 10 ML Morphine Sulfate 1 mg Q4HPRN PRN IV 06/16/24 14:00 07/11/24 18:09 1 MG Ondansetron HCl 4 mg Q4HP PRN IV 06/21/24 16:00 07/11/24 06:17 4 MG Metoclopramide HCl 10 mg Q8HPRN PRN IV 06/21/24 16:00 07/12/24 00:58 10 MG Diphenhydramine HCl 25 mg Q6HP PRN PO 06/21/24 17:00 07/05/24 23:37 25 MG Nystatin 5 ml QID MT 06/27/24 12:00 07/10/24 22:09 5 ML Pantoprazole Sodium 40 mg DAILY@0600 PO 06/29/24 06:00 07/10/24 05:57 40 MG Ursodiol 300 mg BID PO 06/28/24 22:00 07/10/24 12:35 300 MG Morphine Sulfate 2 mg Q4HPRN PRN IV 06/29/24 16:45 Docusate Sodium 200 mg DAILYPRN PRN PO 07/02/24 14:30 Artificial Tears 1 drop Q6HP PRN EACHEYE 07/03/24 14:00 07/04/24 05:19 1 DROP Sodium Chloride 2 gm BID PO 07/04/24 14:15 07/10/24 10:00 2 GM Enteral Nutritional Formula 240 ml TIDWM PO 07/06/24 08:00 07/10/24 18:45 240 ML Acetaminophen 650 mg Q6HP PRN PO 07/07/24 17:30 07/10/24 16:30 650 MG Sodium Chloride 1,000 ml @ 100 mls/hr Q10H IV 07/10/24 14:15 07/12/24 07:21 100 MLS/HR Lorazepam 1 mg Q5MINP PRN IV 07/11/24 10:15 07/12/24 09:16 1 MG Levetiracetam 100 ml @ 400 mls/hr BID IV 07/11/24 22:00 07/12/24 11:39 400 MLS/HR Cefepime HCl 50 ml @ 12.5 mls/hr Q12HR IV 07/12/24 10:00 Linezolid 300 ml @ 150 mls/hr Q12HR IV 07/11/24 22:00 07/12/24 11:37 150 MLS/HR Diagnostic Test (Pha) 1 strip IQ4HR 07/12/24 00:00 07/12/24 08:15 1 STRIP Insulin Human Regular IQ4HR SC 07/12/24 00:00 Dextrose 50 ml UD PRN IV 07/11/24 20:45 Examination Patient lying in bed, not communicating, GCS 10, maintaining airway General: Febrile, palor, mucosae are moist Cardiovascular: Regular S1 and S2. No murmurs, gallops or rubs. No JVD elevation. No pedal edema Respiratory: Normal B/L air entry on room air. Clear lung sounds on auscultation Abdomen: Soft, nontender, nondistended, hyperactive bowel sounds, no rebound tenderness, no organomegaly, no masses Genitourinary: Deferred MSK/skin: Mobilizes 4 limbs. Skin is dry and warm Psych/Mental Status: A/Ox1 laboratory and microbiology Laboratory Tests 07/12/24 06:28 Test 07/12/24 06:28 Range/Units Serum Glucose 73 L 74-106 mg/dL Microbiology Date/Time Source Procedure Growth Status 07/11/24 19:32 Other Pending Resulted 07/11/24 19:32 Other Pending Resulted 07/11/24 19:32 Other Pending Resulted 07/11/24 19:32 Other Pending Resulted 07/11/24 19:32 Other - Final See Separate Report... Resulted 07/11/24 19:32 Cerebral Spinal Fluid Gram Stain - Final Resulted 07/11/24 19:32 Cerebral Spinal Fluid CSF Culture & Gram Stain (Tube 2) M Pending Resulted 07/11/24 14:54 Voided Urine Urine Culture - Preliminary Resulted 07/07/24 06:10 Sputum Gram Stain - Final Complete 07/07/24 06:10 Respiratory Culture - Final Staphylococcus aureus Complete 07/06/24 12:50 Blood Blood Culture - Final NO GROWTH AFTER 5 DAYS OF INCUBATION. Complete 07/02/24 20:23 Stool Ova and Parasites - Final Complete 07/02/24 20:23 Stool - Final Complete Problem List/Assessment/Plan Problem List/Assessment/Plan Altered mental status ? Seizure - active Transaminitis secondary to HIV versus medication induced, negative hepatitis panel, MRCP negative ? 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 no filling defects. Plan: Recommend transferring to higher level of care Follow up with C diff studies, stool WBC and stool Cryptosporidium Consider starting Clinimix for nutrition Stool sample sent for studies. Follow up with the ova and parasite. Stool WBC negative. LFTs trending down. Patient is started on cefepime and linezolid by ID, dimitrio was DC given worsening creatinine. Bactrim also the seed given worsening creatinine. Pending AFB culture Consider stool studies for Cryptosporidium and isospora Continue supportive care Pantoprazole 40 mg daily LFTs trending down Patient will be started on to Biktarvy as an outpatient Avoid NSAIDs Plan discussed with patient in which all questions have been answered Case discussed with Dr. Robins Plan discussed with: Patient Dietary Evaluation Review Comments: Encourage and monitor PO intake to meet 75% of his needs Expected Outcomes/Goals: free from symptoms, gradual weight gain. MING VALENTIN RESIDENT Jul 12, 2024 12:02
[2024-07-12] MEDS ORDERED: Nepro With Carb Steady 1 Liter Bottle GT SCH (12:15)
[2024-07-12] MEDS: CEFEPIME 2GM/50ML NS 50 ML IV SCH (12:23)
[2024-07-12] MEDS ORDERED: CLINIMIX PER PHARMACY 0 ML IV SCH (17:15)
[2024-07-12] MEDS ORDERED: DEXTROSE (50%) 50ML SYRG IV SCH (17:45)
[2024-07-12] MEDS: InsuLIN REG 1unit/0.01ml Soln (100units/ml) SC SCH (18:00)
[2024-07-12] MEDS: ACCU-CHEK COMFORT CURVE STRIP VI SCH (18:11)
--- NOTE | 2024-07-12 18:25 | DVH ---
Procedure: CT CHST AB PEL WO CON-NO IV/ORAL Study Date and Requested Time: 07/12/2024 05:07 PM History: worsening sepsis Comparison: CT angio chest 06/12/[address] chest abdomen and pelvis 02/17/2024 Dose: CTDI: 8.08 mGy DLP: 597.08 mGycm Technique: Multiplanar images obtained through the chest, abdomen and pelvis without contrast Findings: Chest: The thyroid gland is unremarkable. Heart size is within normal limits. No evidence of aortic aneurysm. Pulmonary trunk is normal in size . Subcentimeter mediastinal lymph nodes measuring up to 0.9 cm. No pneumothorax, or pleural effusion. Tree-in-bud opacities involving the bilateral lower lobes and l eft upper lobe. 1.9 cm left lower lobe solid nodule. Minimal soft tissue edema. Slightly prominent bilateral axillary lymph nodes measuring up to 1 cm on the left which may be reactive. No destructive osseous lesions noted. Abdomen and pelvis: Yenni's lobe of the liver. Otherwise, liver, spleen, pancreas and right adrenal gland are unremarkab le. 1.2 cm left adrenal nodule measuring up to 38 Hounsfield units. Kidneys, and ureters unremarkable. Urinary bladder is mildly distended with Elliott catheter in place. Focus of nondependent air within the urinary bladder which is most likely iatrogenic. Prostate is un remarkable. Mild wall thickening of the distal esophagus. Stomach is unremarkable. Small bowel loops unremarkabl e. Appendix is not definitely visualized. No pericecal inflammatory reaction to suggest acute appendi citis. Small to moderate amount of fecal material within the colon. 1.2 x 0.6 cm lipoma within the re ctum. Mild rectal wall thickening. Minimal mesenteric edema. Trace amount of free fluid within the pelvis. No evidence of aortic aneurysm. No significant lymphadenopathy. Mild soft tissue edema. No destructive osseous lesions are noted. Impression: Tree-in-bud opacities bilateral lower lobes and left upper lobe which may represent infectious bronch iolitis. Redemonstration of 1.9 cm left lower lobe solid nodule. Mild wall thickening of the distal esophagus which may be due to inadequate distention/esophagitis. 1.2 cm left adrenal nodule. Rectal lipoma. Mild wall thickening of the rectum which may be due to inadequate distention with pro ctitis not excluded.
--- NOTE | 2024-07-12 19:00 | DVHPN2 ---
ELVA VU RESIDENT 07/12/24 1900: Consult Progress Note Date Seen: Jul 12, 2024 Subjective Other Systems: Patient seen and examined at bedside. Patient continued to be altered, not able to answer any questions, GCS probably 10. Physical Exam General Appearance: Altered, protecting his airway, responding to pain stimuli, reactive pupils, Head Exam: Normal inspection Neck Exam: Normal inspection. Non-tender. Normal alignment Pulmonary/Respiratory: Chest non-tender. Clear bilateral breath sounds Cardiovascular/Chest: Regular rate and rhythm. No murmurs. No JVD. Peripheral Pulses: 2+ Radial (R). 2+ Radial (L). 2+ Pedal (R). 2+ Pedal (L) Abdominal Exam: Normal bowel sounds. Soft. Nontender. No hepatospenomegaly. No masses Ankle Exam: Negative ankle edema Lower extremities: Negative lower extremity edema Neuro/Mental Status: Alert, not oriented to time place and person. Pupillary reflex present, upper and and lower extremity muscular strength 4/5. Sensory examination can not be done. Objective vital signs Vital Sign Date Time Temp Pulse Resp B/P (MAP) Pulse Ox O2 Delivery O2 Flow Rate FiO2 07/12/24 17:00 97.9 91 21 109/59 (76) 97 97.9 07/12/24 08:00 Room Air* 0 21 Total Intake and Output 07/11/24 07/11/24 07/12/24 15:00 23:00 07:00 Intake Total 100 ml 250 ml 450 ml Output Total 300 ml 200 ml Balance 100 ml -50 ml 250 ml medications Current Medications Medications Dose Ordered Sig/Sean Route Start Time Stop Time Status Last Admin Dose Admin Guaifenesin/ Dextromethorphan 10 ml Q4HP PRN PO 06/08/24 11:00 07/10/24 01:48 Morphine Sulfate 1 mg Q4HPRN PRN IV 06/16/24 14:00 07/11/24 18:09 Ondansetron HCl 4 mg Q4HP PRN IV 06/21/24 16:00 07/11/24 06:17 Nystatin 5 ml QID MT 06/27/24 12:00 07/10/24 22:09 Pantoprazole Sodium 40 mg DAILY@0600 PO 06/29/24 06:00 07/10/24 05:57 Ursodiol 300 mg BID PO 06/28/24 22:00 07/10/24 12:35 Morphine Sulfate 2 mg Q4HPRN PRN IV 06/29/24 16:45 Docusate Sodium 200 mg DAILYPRN PRN PO 07/02/24 14:30 Artificial Tears 1 drop Q6HP PRN EACHEYE 07/03/24 14:00 07/04/24 05:19 Sodium Chloride 2 gm BID PO 07/04/24 14:15 07/10/24 10:00 Acetaminophen 650 mg Q6HP PRN PO 07/07/24 17:30 07/10/24 16:30 Sodium Chloride 1,000 ml @ 100 mls/hr Q10H IV 07/10/24 14:15 07/12/24 07:21 Lorazepam 1 mg Q5MINP PRN IV 07/11/24 10:15 07/12/24 09:16 Levetiracetam 100 ml @ 400 mls/hr BID IV 07/11/24 22:00 07/12/24 11:39 Linezolid 300 ml @ 150 mls/hr Q12HR IV 07/11/24 22:00 07/12/24 11:37 Metoclopramide HCl 5 mg Q8HPRN PRN IV 07/12/24 12:00 Cefepime HCl 50 ml @ 12.5 mls/hr Q24H IV 07/13/24 12:00 Amino Acids 0 ml @ 0 mls/hr PER PHARMACY IV 07/12/24 17:15 Diagnostic Test (Pha) 1 strip Q6HR 07/12/24 18:00 07/12/24 18:11 Insulin Human Regular FOLLOW SLIDING SCALE Q6HR SC 07/12/24 18:00 Dextrose 50 ml UD IV 07/12/24 17:45 Amino Acids/ Electrolytes/ Dextrose 1,000 ml @ 41 mls/hr DAILY@2200 IV 07/12/24 22:00 laboratory and microbiology Laboratory Tests 07/12/24 06:28 Test 07/12/24 06:28 Range/Units Serum Glucose 73 L 74-106 mg/dL Problem List/Assessment/Plan Problem List/Assessment/Plan Pneumocystis Jerovoci or Carini Pneumonia ( opportunistic infection) AIDS, CD4 count less than 10 Acid-fast bacilli culture positive ? Rule out tuberculosis/MAC infection Neutropenic fever UTI Enterococcus faecalis Multifocal pneumonia Septic shock due to pneumonia: Currently off vasopressor Transaminitis with elevated bilirubin ? Age cholangiopathy/medication induced Hyponatremia likely due to SIADH Pulmonary nodule, 2 cm in size Left adrenal nodule Severe anemia Immunosuppressed Homosexual Plan/recommendation Dr. Guzman -Continue cefepime and linezolid for brought coverage of antibiotic given patient is in septic shock, requiring IV fluid bolus, vancomycin has been discontinued given worsening kidney function, we will continue with linezolid at this point. Oral Bactrim also has been discontinued given worsening kidney function. At this point given patient's saturating well on oxygen, we will hold off for PJP treatment at this point, we will more focus on underlying septic shock, we will continue with broad-spectrum at this point and we will follow with acid-fast bacilli cultures once available, could be patient have disseminated tuberculosis/MAC infection. -We will hold of antiviral therapy at this point given worsening kidney function, pending CSF lab results. -CT scan of abdomen pelvis and chest showed likely infectious bronchiolitis, left lung lower lobe nodule, adrenal nodule, possible proctitis. No signs of abscess. -Holding anti-retroviral therapy until rule out tuberculosis/mac infection, pending further lab results of acid-fast bacilli culture, three acid-fast bacilli smear negative, two acid-fast bacilli PCR negative. HIV-1 viral load RNA:[id number]. We will need ART therapy, currently holding until ruled out possible active TB/MAC infection and cryptococcal infection. -Continue airborne/droplet isolation, with reverse isolation. -Respiratory culture came back positive for Staphylococcus aureus. -Follow-up with acid-fast bacilli blood and stool, toxoplasma accordingly IgM/IgG G, cryptococcal antibody, chlamydia/gonorrhea amplification test, cytomegalovirus PCR. -Patient will also need HIV Genosure plus integrace for sensitivity to anti retroviral therapy -MRI brain negative for acute intracranial abnormality, less likely cryptococcus infection. -Check cMV PCR given possibility of low-level viremia -GI consultation for continue monitoring liver function -Pending G6PD test -Stool study negative for Campylobacter, Shiga toxin. -Bronchoscopy on 06/12/2024: Positive for PCP, negative for acid-fast bacilli. -MRCP 06/25 shows no biliary ductal dilation. no filling defects. Poor prognosis, guarded. Plan discussed with: Other Dietary Evaluation Review Comments: Encourage and monitor PO intake to meet 75% of his needs Expected Outcomes/Goals: free from symptoms, gradual weight gain. JONO GUZMAN MD 07/15/24 1413: Consult Progress Note Problem List/Assessment/Plan Problem List/Assessment/Plan _ Attending Addendum: Case discussed with Dr. Vu. at the time of visit. Patient is an HIV patient , 28 years old and diagnosed in may 2024 [facility] and transferred to [facility] . Patient seen by myself and Dr Benito reviewed chart and disscussed paln with Dr Benito . Patient CD4 count of 10 , viral load over 1 million and patient presented with acute hypoxic respiratory failure fevers and has been in hospital for about 1 month and in ICU requiring levofed . has a bronchoscopy done showing BAL cytology finding consistency with PJP pneumonia so started on bactrum from 7 days and then discontinued due to patient developing LFT elevation as well as hyperbilirubinemia . switched to climdamycin then discontinued due to patient improving and put on room ai r, evaluated for TB , AFB sputum has been negative and MTBPCR x2 has been negative however after 2 weeks 1 of patients sputum is growing AFB organism thats yet to be identified. feels a bit weak and has been having weightloss , fevers , chills for the last several months, last febrile was 48 hours ago with a temp of 100.5 and is neuropenic with a whitecount of 1.2 and is tachycardic with HR of 128 . low body weight of 54.1 kg and kexia and poor historia , having anemia with a hemoglobin of 7.6 which has been going down during admission . problem list includes HIV Aids , pneumonia , multi opportunistic organism infection including PJP and possibly TB vs Mac infection , cytopenias , neutropenic fever , sepsis , anemia , UTI with enterococcus . 12 point review systems and vitals signs and relevant imaging has been reviewed by me . plan for patient would be to stop ampicillin and start vancomycin and cefamine empirically due to fevers and unresolved sepsis and continue until fevers have resolved for 48 hours and meutropenia has improved . would check prior hold HAART therapy until TB infection is ruled out as cryptococal toxoplasm and CMV infections . check serologies for these and would restart patient on bactrum to finish 21 day course , will monitor LFTs and anemia . recommend checking AFB blood in stool for further evaluation of MAC infection and follow up on AFB cultures . continue airborne and droplet isolation precautions 2/; continues to be febrile and was reported by Dr Vu in the AM to be more alert , lethargic and not responding to questions but responding to deep sternal rub . patients whitecount is rising and kidney function is worsening. Is on room air and can forgo PJP treatments since it is unlikely playing a large role in septic picture and patietns on room ait . Patient weighs 106 lbs , so attempt to lower bactrum to 1 double strength tablet 3x a day and monitor kidney function , can stop vancomycin in setting of VEL and will switch to linasolid and continue cefepime. If mentation does not improve in next 24 hours patient will need lumbar puncture. recommend repeating blood cultures and doing a chest ct of abdomen and pelvis 07/11: remains uptunded but is able to protenct airway , underwent a lumbar puncture earlier in the day and is still not responsive and pulling out lines . no fever in the last 24 hours but patient is having rising keratin , BUN 68 which is possibly contributing to an altered mental staus . however would want to rule out any type of infectious meningitis in the setting of AIDs for lumbar punture recommend bacterial AFB fungal culture , viral culture , CMV antibuody , VZV antibody , cryptococcus antibody , coxy antibody , RPR , HSVPR , PCR , VDRL . Continue linazolid and cefepime which will provide patient with adequate menegitis coverage . unclear ideology staus at this stime but suspect its a combination of HIV encephalopathy with providing a low baseline mentation in setting of uremia , worsening kidney function may be attributable to bactrum vs HIV nephropathy . Patients BP is holding steady a bit on the low side , waiting to follow up on AFB culture speciation to see if we are attempting to treat MAC vs TB . Hold of on HAART therapy for now while awaiting results for cryptococcal and AFB studies. will hold off Bactrim to avoid worsening keratin from nephrotoxicity and PJP is not a priority to treat at this time 07/12: Is breathing on room air and remains largely obtained but is still protecting his airway . lumbar puncture bacterial culture suggests that there is no acute concern for bacterial infection in the CSF . Plan for patient to stop Bactrim due to rising creatine and continue empirical therapy with linezolid and cefepime . will continue to follow up on AFB culture results Otherwise reviewed and agree with Dr Vu's findings, A/P as written in note. PE: General Appearance: Cooperative. Well developed. Well nourished. NAD Head Exam: Normal inspection Neck Exam: Normal inspection. Non-tender. Normal alignment Pulmonary/Respiratory: Chest non-tender. Clear bilateral breath sounds. crackles in lungs Cardiovascular/Chest: tacycardic No murmurs. No JVD. Abdominal Exam: Normal bowel sounds. Soft. Nontender. No hepatosplenomegaly. No masses Ankle Exam: Lower extremities: ELVA VU RESIDENT Jul 12, 2024 19:00 JONO GUZMAN MD Jul 15, 2024 14:13
--- NOTE | 2024-07-12 20:31 | DVHINCON2 ---
Date of service: Jul 12, [address] Moctezuma Reason for Consultation ? Seizure History of Present Illness PATIENT DOES NOT WANT ANY INFORMATION SHARED Mr. Moss is a 28 years old gentleman with a history of HIV/aids, he was transferred from the [facility] on 06/08/2024 for further evaluation treatment. On 07/11/24, he had seizure-like activity however his nurse and medical staff did not witnessed symptoms. At this time, the patient's eyes are slightly open, deviated to the left side, but he is not responsive to verbal stimuli, there was some twitching or jerking movement in the shoulders, neck, and questionable in both legs Keppra 500 mg b.i.d. started on 07/11/24 CSF, 07/11/2024: RBC: Five, protein: 46 found eight, glucose: 49 UDS, 06/26/2024: Opiates Plasma alcohol, 06/25/2024: Normal Urinalysis, 07/17/2024: WBC: Negative, urine leukocyte esterase: Negative WBC/HB/PLT/MCV, 07/12/2024: 4.4/6.4/331/78 0.1 PT/INR/PTT, 06/15/2024: 0.2/35/29/112, 06/12/2024: 11.1/1.06/29.3 Na, 06/08/2024: 136, 06/15/24:129, 06/20/24: 122, 06/24/2024: 117, 06/25 06/30: 121, 07/03/2024: 120, 07/06/2024: 123, 07/12/24: 132 BUN/CR, 07/02/2024: 15/0.49 07/12/2024: 68/4.30 TBI/AST/ALT/AP, 06/24/2024: 4.10/2515/1321/482, 07/02/2024: 9.8/71/196/710, 07/12/2024: 3.2/79/50/395 CT head, 07/11/2024: No acute intracranial process. MRI head, 07/06/2024: No acute cardiopulmonary disease. 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 Allergies: Coded Allergies: NO KNOWN ALLERGIES (Unverified , 06/08/24) Home Meds Active Scripts Sdpkahefvqh-Fqlfebkkhjtnx-Fzeu (Biktarvy 50-200-25 mg) 1 Tab Tab, 1 TAB PO DAILY for 60 Days, #60 TAB Prov:MATTHEW MAURER L[employer] HE[employer] BUILDER 07/08/24 Current Medications Current Medications Medications (Trade) Dose Ordered Sig/Sean Route PRN Reason Start Time Stop Time Status Last Admin Levetiracetam 100 ml @ 400 mls/hr BID IV 07/11/24 22:00 07/12/24 11:39 Ceftriaxone Sodium/Dextrose 50 ml @ 50 mls/hr Q12HR@09,21 IV 07/11/24 21:00 07/11/24 18:38 DC Cefepime HCl 50 ml @ 12.5 mls/hr Q12HR IV 07/12/24 10:00 07/12/24 15:34 DC 07/12/24 12:23 Linezolid 300 ml @ 150 mls/hr Q12HR IV 07/11/24 22:00 07/12/24 11:37 Diagnostic Test (Pha) (Accu-Chek Comfort Curve T) 1 strip IQ4HR 07/12/24 00:00 07/12/24 17:32 DC 07/12/24 16:00 Insulin Human Regular (InsuLIN R) IQ4HR SC 07/12/24 00:00 07/12/24 17:32 DC Dextrose 50 ml UD PRN IV Blood Sugar LESS THAN 60 07/11/24 20:45 07/12/24 17:32 DC Dextrose 1,000 ml @ 30 mls/hr Q24H IV 07/12/24 09:00 07/12/24 11:45 DC Metoclopramide HCl (Reglan Injection) 5 mg Q8HPRN PRN IV NAUSEA / VOMITING 07/12/24 12:00 Enteral Nutritional Formula (Nepro With Carb Steady) 1,000 ml 30ML/HR GT 07/12/24 12:15 07/12/24 14:51 DC Cefepime HCl 50 ml @ 12.5 mls/hr Q24H IV 07/13/24 12:00 Amino Acids 0 ml @ 0 mls/hr PER PHARMACY IV 07/12/24 17:15 Diagnostic Test (Pha) (Accu-Chek Comfort Curve T) 1 strip Q6HR 07/12/24 18:00 07/12/24 18:11 Insulin Human Regular (InsuLIN R) FOLLOW SLIDING SCALE Q6HR SC 07/12/24 18:00 Dextrose 50 ml UD IV 07/12/24 17:45 Amino Acids/ Electrolytes/ Dextrose 1,000 ml @ 41 mls/hr DAILY@2200 IV 07/12/24 22:00 Review of Systems Unobtainable Vital Signs Vital Signs Date Time Temp Pulse Resp B/P (MAP) Pulse Ox O2 Delivery O2 Flow Rate FiO2 07/12/24 19:30 96.6 94 21 99/63 (75) 98 205.9 07/12/24 08:00 Room Air* 0 21 Physical Exam GENERAL EXAM: General: the patient is well developed and nourished. No acute distress. HEENT: Normocephalic, neck is supple, no carotid bruits. No mass. RESPIRATORY: Normal respiratory effort with symmetrical lung expansion. Lungs clear to auscultation. CARDIOVASCULAR: Regular rate and rhythm with no murmurs. S1, S2. ABDOMEN: Soft, nontender, normal bowel sound NEUROLOGICAL: MENTAL STATUS: HPI SPEECH, LANGUAGE, HIGHER CORTICAL FUNCTION: Deferred CRANIAL NERVES: #2: Deferred #3,4,6: Pupils are equal, round and reactive. Eyes 10 to deviated to left side #5: Deferred #7: Facial muscles symmetrical and strength intact. #8: Deferred. #9,10: Deferred. #11: Deferred #12: Deferred SENSATION: Possible responsive to painful stimuli MOTOR: Normal tone in the upper and lower extremity. Subtle muscle twitching in the shoulders,, possibly both legs REFLEXES: Deep tendon reflexes are symmetrical. No pathological reflexes. CEREBELLAR/COORDINATION: Deferred GAIT/STATION: deferred Labs/Diagnostic Data Labs Test 07/12/24 19:47 07/12/24 18:08 07/12/24 11:00 07/12/24 06:28 Range/Units Phosphorus Level 8.5 H 2.4-5.1 mg/dL POC Glucose 97 70-106 mg/dl Blood Gas Specimen Type Arterial Blood Gas Sample Site Right radial Blood Gas Patient Temperature 37.0 Arterial Blood Date Drawn [id number] Arterial Blood pH 7.409 7.350-7.450 Arterial Blood Partial Pressure CO2 26.7 L 35.0-48.0 mmHg Arterial Blood Partial Pressure O2 95.7 83.0-108.0 mmHg Arterial Blood HCO3 16.5 L 21.0-28.0 mmol/L Arterial Blood Oxygen Saturation 96.3 94.0-98.0 % Arterial Blood Base Excess -7.4 L -2.0-3.0 mmol/L Arterial Blood Oxyhemoglobin 93.6 L 94.0-98.0 % Arterial Blood Carboxyhemoglobin 1.2 0.5-1.5 % Arterial Blood Methemoglobin 1.6 H 0.0-1.5 % Sam Test Yes Blood Gas Total Hemoglobin 6.30 *L 13.5-17.5 g/dL Blood Gas Modality Room air FiO2 % 21.0 Blood Gas Critical Value Read Back Yes Blood Gas Notified Whom yohana Bauer Blood Gas Notified Time [id number] Blood Gas Notified By Pollo cervantes White Blood Count 4.4 4.4-10.8 10^3/uL Red Blood Count 2.45 L 4.5-5.90 10^6/uL Hemoglobin 6.4 *L 13.5-17.5 g/dL Hematocrit 19.2 #L 41.0-53.0 % Mean Corpuscular Volume 78.1 L 80.0-100.0 fL Mean Corpuscular Hemoglobin 25.9 L 28.0-32.0 pg Mean Corpuscular Hemoglobin Concent 33.2 32.0-36.0 g/dL Red Cell Distribution Width 18.2 H 11.8-14.3 % Platelet Count 331 140-450 10^3/uL Mean Platelet Volume 10.0 6.9-10.8 fL Neutrophils (%) (Auto) 37.0-80.0 % Lymphocytes (%) (Auto) 10.0-50.0 % Monocytes (%) (Auto) 0.0-12.0 % Basophils (%) (Auto) 0.0-2.0 % Neutrophils # (Auto) 1.6-8.6 10 ^3/uL Lymphocytes # (Auto) 0.4-5.4 10 ^3/uL Monocytes # (Auto) 0-1.3 10 ^3/uL Differential Total Cells Counted 100.0 100 Neutrophils % (Manual) 79 37.0-80.0 Band Neutrophils % (Manual) 10 Lymphocytes % (Manual) 3 L 10.0-50.0 Monocytes % (Manual) 6 0-12 Eosinophils % (Manual) 1 0-7 Basophils % (Manual) 0 0.0-2.0 Metamyelocytes % (manual) 1 Myelocytes % (Manual) 0 Promyelocytes % (Manual) 0 Blast Cells % (Manual) 0 Reactive Lymphocytes 0 Platelet Estimate Adequate Anisocytosis (manual) Slight Microcytosis Slight Sodium Level 132 L 136-145 mmol/L Potassium Level 3.8 3.5-5.1 mmol/L Chloride Level 100 98-107 mmol/L Carbon Dioxide Level 16 L 20-31 mmol/L Anion Gap 16 H 5-15 Blood Urea Nitrogen 68 H 9-23 mg/dL Creatinine 4.30 H 0.700-1.30 mg/dL Glomerular Filtration Rate Calc 18 >90 mL/min BUN/Creatinine Ratio 15.8 10.0-20.0 Serum Glucose 73 L 74-106 mg/dL Calcium Level 8.5 L 8.7-10.4 mg/dL Magnesium Level 2.0 1.6-2.6 mg/dL Total Bilirubin 3.2 H 0.2-1.0 mg/dL Aspartate Amino Transferase (AST) 79 H 13-40 U/L Alanine Aminotransferase (ALT) 50 H 7-40 U/L Alkaline Phosphatase 395 H 46-116 U/L Total Protein 6.0 5.7-8.2 g/dL Albumin 3.3 3.2-4.8 g/dL Test 07/11/24 19:32 07/11/24 18:09 07/11/24 13:18 07/11/24 06:37 Range/Units CSF Tube Number Tube 4 CSF Appearance Clear CSF WBC 5 0-5 CUMM CSF RBC 73 H 0-5 CUMM CSF Protein (Tube 2) 46.8 H 15-45 mg/dL CSF Mononuclear Cells % CSF Polymorphonuclear Cells % CSF Glucose 49 40-70 mg/dL Lactic Acid Level 0.7 0.4-2.0 mmol/L Direct Bilirubin 3.8 H <0.3 mg/dL Creatine Kinase 206 H 46-171 U/L Test 07/10/24 05:10 07/09/24 13:00 07/09/24 03:30 07/09/24 00:00 Range/Units Thyroid Stimulating Hormone (TSH) 5.52 H 0.55-4.78 uIU/mL Cortisol AM Sample 45.68 H 5.27-22.45 ug/dL Vancomycin Level Trough < 3.0 L 5-10 ug/mL Nucleated Red Blood Cells 1.0 % Large Platelets Few Giant Platelets Few Ovalocytes Few Stomatocytes Few Schistocytes Few Influenza Type A Antigen Negative Negative Influenza Type B Antigen Negative Negative SARS-CoV-2 Antigen (Rapid) Negative NEGATIVE Test 07/07/24 17:20 07/06/24 16:40 07/06/24 06:00 07/04/24 05:44 Range/Units Urine Color Dark-yellow Yellow Urine Clarity Clear Clear Urine pH 7.5 5.0-9.0 Urine Specific [place] 1.020 1.001-1.035 Urine Protein 1+ H Negative Urine Ketones Negative Negative Urine Blood Negative Negative /uL Urine Nitrite Negative Negative Urine Bilirubin 1+ Negative Urine Urobilinogen 2 H Negative mg/dL Urine Leukocyte Esterase Negative Negative /uL Urine RBC <1 0 - 3 /hpf Urine Microscopic WBC 2 0-3 /HPF Urine Squamous Epithelial Cells None seen <5 /hpf Urine Bacteria None seen None Seen /hpf Urine Osmolality 440 mOsm/kg Urine Sodium 60 40-220 mmol/L Urine Glucose Normal Normal mg/dL Lactate Dehydrogenase 268 H 120-246 U/L Stool for White Cells None seen Smudge Cells 3 /100 WBC Test 06/30/24 05:40 06/28/24 06:00 06/27/24 12:23 06/27/24 05:35 Range/Units Tear Drop Cells Few Hypochromasia (manual) Slight Miscellaneous Referred Test (Refrg) Sent to [facility] Prothrombin Time 10.0 9.3-11.8 sec Prothrombin Time INR 0.94 0.9-1.15 Ammonia 45 H 11-32 umol/L Test 06/26/24 16:36 06/26/24 16:32 06/26/24 05:27 06/25/24 14:55 Range/Units Eosinophils (%) (Auto) 0.1 0.0-7.0 % Eosinophils # (Auto) 0 0-0.8 10 ^3/uL Basophils # (Auto) 0 0-0.2 10 ^3/uL Absolute Neutrophils (auto) 1.7 1.4-7.0 x10E3/uL Absolute Lymphocytes (auto) 0.1 L 0.7-3.1 x10E3/uL Absolute Monocytes (auto) 0.3 0.1-0.9 x10E3/uL Absolute Eosinophils (auto) 0.0 0.0-0.4 x10E3/uL Absolute Basophils (auto) 0.0 0.0-0.2 x10E3/uL Immature Granulocytes % 2 Not Estab. % Immature Granulocytes # 0 0.0-0.1 x10E3/uL Immature Blood Cells . Hematology Comments . Percent CD4 Cells 9.6 L 30.8-58.5 % Absolute CD4 Count 10 L 359-1519 /uL T-Lymphocyte CD4/CD8 Ratio 0.11 L 0.92-3.72 Percent CD8 Cells 88.2 H 12.0-35.5 % Absolute CD8 Count 88 L 109-897 /uL Cytomegalovirus IgG Antibody >10.00 H 0.00-0.59 U/mL Cytomegalovirus IgM Antibody <30.0 0.0-29.9 AU/mL Neha-Scott Virus Capsid Ag IgG Ab 301.0 H 0.0-17.9 U/mL Neha-Scott Virus Capsid Ag IgM Ab <36.0 0.0-35.9 U/mL Neha-Soctt Early Antigen IgG Ab 64.6 H 0.0-17.9 U/mL Neha-Scott Virus Ab Interpret Comment . Urine Opiates Screen Pos NEGATIVE Urine Fentanyl Screen Neg NEGATIVE Urine Barbiturates Screen Neg NEGATIVE Urine Phencyclidine Screen Neg NEGATIVE Urine Amphetamines Screen Neg NEGATIVE Urine Benzodiazepines Screen Neg NEGATIVE Urine Cocaine Screen Neg NEGATIVE Urine Cannabinoids Screen Neg NEGATIVE Reticulocyte Count (auto) 0.18 L 0.5-1.5 % Haptoglobin <10 L 17-317 mg/dL Ferritin > 3300.0 H 22-322 ng/mL Acetaminophen Level 6.0 L 10.0-20.0 UG/ML Plasma/Serum Blood Alcohol < 3.0 <10 mg/dL Test 06/25/24 10:34 06/25/24 01:08 06/23/24 21:41 06/23/24 09:52 Range/Units B-Type Natriuretic Peptide 17.98 0-100 pg/mL Hepatitis A IgM Antibody Negative Hepatitis B Surface Antigen Negative Negative Hepatitis B Core IgM Antibody Negative Negative Hepatitis C Antibody Negative Negative Troponin I High Sensitivity 10 </=54 ng/L Uric Acid 3.3 L 3.7-9.2 mg/dL Test 06/23/24 09:13 06/20/24 12:50 06/19/24 05:41 06/12/24 20:52 Range/Units Urine WBC 1 0 - 3 /hpf TB Test (QFT) Gold Plus Indeterminate H Negative TB Test (QFT) Nil >10.00 . IU/mL TB Test (QFT) Mitogen >10.00 . IU/mL TB Test (QFT) Antigen 1 >10.00 . IU/mL TB Test (QFT) Antigen 2 >10.00 . IU/mL TB Test (QFT) Criteria Comment . Serum Osmolality 269 L 278-298 mOsm/kg Urine Mucus Few None Seen Test 06/12/24 05:40 06/11/24 13:10 06/09/24 23:22 06/09/24 10:26 Range/Units Activated Partial Thromboplast Time 29.3 24.5-34.5 SEC D-Dimer, Quantitative 1.49 H 0.0-0.49 mg/L FEU Legionella pneumophila S1-6 Abs Non reactive Non Reactive Mycoplasma pneumoniae IgG Antibody 395 H 0-99 U/mL Mycoplasma pneumoniae IgM Antibody <770 0-769 U/mL HIV-1 Antibody Confirmation Reactive Non Reactive HIV-2 Antibody Confirmation Non reactive Non Reactive HIV (1&2) Ag and Ab, 4th Generation Preliminary reactive Non Reactive HIV (1&2) Antibody Deferred Negative HIV (1&2) Antibody Interpretation Hiv-1 positive H . Test 06/08/24 11:16 Range/Units HIV-1 RNA (PCR) [id number] . copies/mL HIV-1 RNA (PCR) log10 Value 6.294 . Microbiology Date/Time Source Procedure Growth Status 07/11/24 19:32 Other Pending Resulted 07/11/24 19:32 Other Pending Resulted 07/11/24 19:32 Other Pending Resulted 07/11/24 19:32 Other Pending Resulted 07/11/24 19:32 Other - Final See Separate Report... Resulted 07/11/24 19:32 Cerebral Spinal Fluid Gram Stain - Final Resulted 07/11/24 19:32 Cerebral Spinal Fluid CSF Culture & Gram Stain (Tube 2) M - Preliminary Resulted 07/11/24 14:54 Voided Urine Urine Culture - Preliminary Resulted 07/07/24 06:10 Sputum Gram Stain - Final Complete 07/07/24 06:10 Respiratory Culture - Final Staphylococcus aureus Complete 07/06/24 12:50 Blood Blood Culture - Final NO GROWTH AFTER 5 DAYS OF INCUBATION. Complete 07/02/24 20:23 Stool Ova and Parasites - Final Complete 07/02/24 20:23 Stool - Final Complete Assessment Witnessed seizure-like activity Altered mental status ? Status epilepticus ? Metabolic encephalopathy Aids Anemia Leukopenia Kidney failure Elevated liver function tests Hyponatremia Plan/Recommendation Monitoring Supportive treatment EEG STELLA care Aerosol isolation Oxygen Respiratory support p.r.n. Stabilize vitals p.r.n. IV antibiotics Increase the Keppra to 1000 mg b.i.d. if okay with pharmacy Ativan for seizure breakthrough More recommendation per clinical course Progress: Poor Critical care time spent is 50 minutes This medical document was created using an electronic medical record system with [employer] computerized dictation system. Although this document has been carefully reviewed, there may still be some phonetic and typographical errors. These areas are purely typographical due to imperfections of the software programs, and do not reflect any compromise in the patient's medical care. Plan discussed with: Other JEFFERY CHAVEZ MD Jul 12, 2024 20:31
--- NOTE | 2024-07-12 21:28 | DVHPNRES ---
Progress Note Date Seen: Jul 12, 2024 Resident Creating Document: REGINE OCHOA RESIDENT Has the PT tested + for MRSA If YES, has PT been informed?: Yes Medical Necessity Reason Pt with a Central, PICC or Fol: No Subjective Review of Systems pt seen and examined at bedside is confused GCS 10 NG tube ordered IV clinimix 1 unit of PRBC upgraded to STELLA ROS could not be done Objective vital signs Vital Sign Date Time Temp Pulse Resp B/P (MAP) Pulse Ox O2 Delivery O2 Flow Rate FiO2 07/12/24 20:00 96.8 99 22 100/64 (76) 98 96.8 07/12/24 08:00 Room Air* 0 21 Total Intake and Output 07/11/24 07/11/24 07/12/24 15:00 23:00 07:00 Intake Total 100 ml 250 ml 450 ml Output Total 300 ml 200 ml Balance 100 ml -50 ml 250 ml medications Current Medications Medications Dose Ordered Sig/Sean Route Start Time Stop Time Status Last Admin Dose Admin Guaifenesin/ Dextromethorphan 10 ml Q4HP PRN PO 06/08/24 11:00 07/10/24 01:48 10 ML Morphine Sulfate 1 mg Q4HPRN PRN IV 06/16/24 14:00 07/11/24 18:09 1 MG Ondansetron HCl 4 mg Q4HP PRN IV 06/21/24 16:00 07/11/24 06:17 4 MG Nystatin 5 ml QID MT 06/27/24 12:00 07/10/24 22:09 5 ML Pantoprazole Sodium 40 mg DAILY@0600 PO 06/29/24 06:00 07/10/24 05:57 40 MG Ursodiol 300 mg BID PO 06/28/24 22:00 07/10/24 12:35 300 MG Morphine Sulfate 2 mg Q4HPRN PRN IV 06/29/24 16:45 Docusate Sodium 200 mg DAILYPRN PRN PO 07/02/24 14:30 Artificial Tears 1 drop Q6HP PRN EACHEYE 07/03/24 14:00 07/04/24 05:19 1 DROP Sodium Chloride 2 gm BID PO 07/04/24 14:15 07/10/24 10:00 2 GM Acetaminophen 650 mg Q6HP PRN PO 07/07/24 17:30 07/10/24 16:30 650 MG Sodium Chloride 1,000 ml @ 100 mls/hr Q10H IV 07/10/24 14:15 07/12/24 07:21 100 MLS/HR Lorazepam 1 mg Q5MINP PRN IV 07/11/24 10:15 07/12/24 09:16 1 MG Linezolid 300 ml @ 150 mls/hr Q12HR IV 07/11/24 22:00 07/12/24 11:37 150 MLS/HR Metoclopramide HCl 5 mg Q8HPRN PRN IV 07/12/24 12:00 Cefepime HCl 50 ml @ 12.5 mls/hr Q24H IV 07/13/24 12:00 Amino Acids 0 ml @ 0 mls/hr PER PHARMACY IV 07/12/24 17:15 Diagnostic Test (Pha) 1 strip Q6HR 07/12/24 18:00 07/12/24 18:11 1 STRIP Insulin Human Regular FOLLOW SLIDING SCALE Q6HR SC 07/12/24 18:00 Dextrose 50 ml UD IV 07/12/24 17:45 Amino Acids/ Electrolytes/ Dextrose 1,000 ml @ 41 mls/hr DAILY@2200 IV 07/12/24 22:00 Levetiracetam 100 ml @ 400 mls/hr BID IV 07/12/24 22:00 UNV Lorazepam 1 mg Q5MINP PRN IV 07/12/24 21:15 UNV Examination Examination General Appearance: confused HEENT: EOMI Respiratory: Clear to auscultation, Normal air movement Cardiovascular: Regular rate, Normal S1, Normal S2 Abdominal: Normal bowel sounds Extremities: No cyanosis, No edema, Normal pulses, No tenderness/swelling Skin: No rashes, No breakdown Neuro: confused , hypertonic laboratory and microbiology Laboratory Tests 07/12/24 06:28 Test 07/12/24 06:28 Range/Units Serum Glucose 73 L 74-106 mg/dL Microbiology Date/Time Source Procedure Growth Status 07/11/24 20:09 Blood Blood Culture - Preliminary NO GROWTH AFTER 24 HOURS OF INCUBATION. Resulted 07/11/24 19:32 Other Pending Resulted 07/11/24 19:32 Other Pending Resulted 07/11/24 19:32 Other Pending Resulted 07/11/24 19:32 Other Pending Resulted 07/11/24 19:32 Other - Final See Separate Report... Resulted 07/11/24 19:32 Cerebral Spinal Fluid Gram Stain - Final Resulted 07/11/24 19:32 Cerebral Spinal Fluid CSF Culture & Gram Stain (Tube 2) M - Preliminary Resulted 07/11/24 14:54 Voided Urine Urine Culture - Preliminary Resulted 07/07/24 06:10 Sputum Gram Stain - Final Complete 07/07/24 06:10 Respiratory Culture - Final Staphylococcus aureus Complete 07/02/24 20:23 Stool Ova and Parasites - Final Complete 07/02/24 20:23 Stool - Final Complete Labs and/or images reviewed: Labs reviewed by me, Image(s) reviewed by me Problem List/Assessment/Plan Problem List/Assessment/Plan Assessment/plan Neurology #Metabolic encephalopathy due to sepsis/?meningitis -Head CT #?Seizure due to ?Meningitis -Head CT -ativan prn -IV kepra -neurology consult #?Meningitis -IV antibiotics as per ID -LP done Cardiology # shock likely due to septic shock -patient is off vasopressors since yesterday -started on IV fluids -IV fluids per Nephrology Respiratory # acute hypoxic respiratory 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 -currently on room air #Multifocal pneumonia, Pneumocystis Jerovoci or Carini Pneumonia ( opportunistic infection) -patient was initially on Bactrim was discontinued -infectious disease on board -IV antibiotics #Pulmonary nodule, 2 cm in size -seen on imaging GI #Transaminitis with elevated bilirubin ?cholangiopathy/medication induced -monitor Urology #UTI Enterococcus faecalis -ampicillin stopped by ID Endocrine #Left adrenal nodule -cortisol AM Hematology/Oncology # microcytic anemia, Severe, requiring blood transfusion -1 unit of PRBC Monitor # leukopenia with neutropenic fever ?likely due to sepsis -monitor Nephrology #VEL due to ?bacterim use -nephrology on board -IV fluids #Hyponatremia ?SIADH due to PCP pneumonia/bacterim use -monitor #hypokalemia -corrected #Hyperkalemia -corrected Infectious disease #oral candidiasis -nystatin swish and swallow #AIDS, CD4 count less than 10 -ID on board #Acid-fast bacilli culture positive ? Rule out tuberculosis/MAC infection -ID on board #Pneumocystis Jerovoci or Carini Pneumonia ( opportunistic infection) -ID on board Social Homosexual Lines peripheral IV Drips off norepi drip DVT prophylaxis SCD PUD prophylaxis not indicated nutrition NPO considering aspiration risk Code status discussed with the pt >21min , FULL CODE Critical care time excluding procedures : 83 minutes pt upgraded to STELLA Case discussion with Dr Pettit Plan discussed with: Other My Orders My Orders Orders - REGINE OCHOA Procedure Category Date Status Time Insert Midline ORDERS 07/12/24 Transmitted 09:55 Abg W/ Co-Ox RT 07/13/24 Logged 04:00 Clostridium Difficile [place] 07/12/24 Logged Toxin 12:04 * Wound Consult CONS 07/12/24 Transmitted Mrsa Screen [place] 07/12/24 In Process 18:26 Dietary Evaluation Review Comments: Encourage and monitor PO intake to meet 75% of his needs Expected Outcomes/Goals: free from symptoms, gradual weight gain. Date of Service: Jul 12, 2024 Billing Provider: ANDRE PETTIT MD Common Visit Codes: [id number] CARE 30-74 MIN, [id number] CARE-EACH +30MIN REGINE OCHOA RESIDENT Jul 12, 2024 21:28 ANDRE PETTIT MD Jul 15, 2024 13:10
[2024-07-12] MEDS: levETIRAcetam 1000 mg/100ml 100 ML IV SCH (21:52)
[2024-07-12] MEDS: AMINO ACID INFUSION IN D10W 1,000 ML IV SCH (22:06)
[2024-07-13] VITALS (90 sets, daily range): BP systolic 88–251; BP diastolic 51–216; PULSE 73–114; RESP 15–28; TEMP 96.3–97.9; O2SAT 89–99
[2024-07-13 08:27] LABS: Base Excess -9.7 mmol/L (-2.0-3.0)
[2024-07-13 09:10] LABS: Anion Gap 15 (5-15); Chloride 105 mmol/L (98-107)
[2024-07-13 09:14] LABS: Alanine Aminotransferase 41 U/L (7-40); Albumin 3.1 g/dL (3.2-4.8); Alkaline Phosphatase 350 U/L (46-116); Aspartate Aminotransferase 58 U/L (13-40); Carbon Dioxide 14 mmol/L (20-31); Glucose 119 mg/dL (74-106); Potassium 3.4 mmol/L (3.5-5.1); Sodium 134 mmol/L (136-145)
[2024-07-13 09:37] LABS: Calcium 8.3 mg/dL (8.7-10.4)
[2024-07-13 09:42] LABS: Blood Urea Nitrogen 67 mg/dL (9-23); Triglycerides 507 mg/dL (< 150)
[2024-07-13 09:56] LABS: Bilirubin, Total 2.5 mg/dL (0.2-1.0); Phosphorus 6.4 mg/dL (2.4-5.1); Total Protein 5.7 g/dL (5.7-8.2)
[2024-07-13 11:24] LABS: Hematocrit 21.9 % (41.0-53.0); Hemoglobin 7.4 g/dL (13.5-17.5); Mean Corpuscular Hemoglobin 27.5 pg (28.0-32.0); Mean Corpuscular Hgb Conc. 33.7 g/dL (32.0-36.0); Mean Corpuscular Volume 81.6 fL (80.0-100.0); Platelet Count (auto) 313 10^3/uL (140-450); Red Blood Cells 2.69 10^6/uL (4.5-5.90); Red Cell Distribution Width 18.8 % (11.8-14.3); White Blood Cell 4.5 10^3/uL (4.4-10.8)
[2024-07-13] MEDS: SODIUM CHLORIDE 0.9% 1,000 ML IV SCH (11:30)
[2024-07-13] MEDS: CEFEPIME 2GM/50ML NS 50 ML IV SCH (11:33)
[2024-07-13 11:43] LABS: Basophils % (manual) 0 (0.0-2.0); Blast Cells 0; Eosinophils % (manual) 0 (0-7); Promyelocytes % 0; Reactive Lymphocytes 0
--- NOTE | 2024-07-13 12:51 | DVHPN2 ---
Progress Note Date Seen: Jul 13, 2024 Has the PT tested + for MRSA If YES, has PT been informed?: Yes Medical Necessity Reason Pt with a Central, PICC or Fol: No Subjective Patient reports: Other (Events yesterday noted patient had seizures currently upgraded to ICU uncle bedside) Review of Systems: Deferred Objective vital signs Vital Sign Date Time Temp Pulse Resp B/P (MAP) Pulse Ox O2 Delivery O2 Flow Rate FiO2 07/13/24 09:00 96.6 88 21 102/66 (78) 97 205.9 07/13/24 08:00 Room Air* 0 21 Total Intake and Output 07/12/24 07/12/24 07/13/24 15:00 23:00 07:00 Intake Total 1000 ml 1041 ml 1148 ml Output Total 950 ml 750 ml Balance 1000 ml 91 ml 398 ml medications Current Medications Medications Dose Ordered Sig/Sean Route Start Time Stop Time Status Last Admin Dose Admin Guaifenesin/ Dextromethorphan 10 ml Q4HP PRN PO 06/08/24 11:00 07/10/24 01:48 10 ML Morphine Sulfate 1 mg Q4HPRN PRN IV 06/16/24 14:00 07/11/24 18:09 1 MG Ondansetron HCl 4 mg Q4HP PRN IV 06/21/24 16:00 07/11/24 06:17 4 MG Nystatin 5 ml QID MT 06/27/24 12:00 07/13/24 11:33 5 ML Pantoprazole Sodium 40 mg DAILY@0600 PO 06/29/24 06:00 07/10/24 05:57 40 MG Ursodiol 300 mg BID PO 06/28/24 22:00 07/13/24 09:41 300 MG Morphine Sulfate 2 mg Q4HPRN PRN IV 06/29/24 16:45 Docusate Sodium 200 mg DAILYPRN PRN PO 07/02/24 14:30 Artificial Tears 1 drop Q6HP PRN EACHEYE 07/03/24 14:00 07/04/24 05:19 1 DROP Sodium Chloride 2 gm BID PO 07/04/24 14:15 07/13/24 09:41 2 GM Acetaminophen 650 mg Q6HP PRN PO 07/07/24 17:30 07/10/24 16:30 650 MG Linezolid 300 ml @ 150 mls/hr Q12HR IV 07/11/24 22:00 07/13/24 09:41 150 MLS/HR Metoclopramide HCl 5 mg Q8HPRN PRN IV 07/12/24 12:00 Cefepime HCl 50 ml @ 12.5 mls/hr Q24H IV 07/13/24 12:00 07/13/24 11:33 12.5 MLS/HR Amino Acids 0 ml @ 0 mls/hr PER PHARMACY IV 07/12/24 17:15 Diagnostic Test (Pha) 1 strip Q6HR 07/12/24 18:00 07/13/24 05:28 1 STRIP Insulin Human Regular FOLLOW SLIDING SCALE Q6HR SC 07/12/24 18:00 Dextrose 50 ml UD IV 07/12/24 17:45 Amino Acids/ Electrolytes/ Dextrose 1,000 ml @ 41 mls/hr DAILY@2200 IV 07/12/24 22:00 07/12/24 22:06 41 MLS/HR Levetiracetam 100 ml @ 400 mls/hr BID IV 07/12/24 22:00 07/13/24 09:41 400 MLS/HR Lorazepam 1 mg Q5MINP PRN IV 07/12/24 21:15 Sodium Chloride 1,000 ml @ 75 mls/hr [id number] IV 07/13/24 11:30 07/13/24 11:30 75 MLS/HR Examination: GENERAL:Abnormal, LUNGS:Abnormal, MSK:Normal, SKIN:Abnormal, NEURO:Abnormal (Change) laboratory and microbiology Laboratory Tests 07/13/24 11:00 07/13/24 07:50 Test 07/13/24 07:50 Range/Units Serum Glucose 119 H 74-106 mg/dL Microbiology Date/Time Source Procedure Growth Status 07/11/24 20:09 Blood Blood Culture - Preliminary NO GROWTH AFTER 24 HOURS OF INCUBATION. Resulted 07/11/24 19:32 Other Pending Resulted 07/11/24 19:32 Other Pending Resulted 07/11/24 19:32 Other Pending Resulted 07/11/24 19:32 Other Pending Resulted 07/11/24 19:32 Other - Final See Separate Report... Resulted 07/11/24 19:32 Cerebral Spinal Fluid Gram Stain - Final Resulted 07/11/24 19:32 Cerebral Spinal Fluid CSF Culture & Gram Stain (Tube 2) M - Preliminary Resulted 07/11/24 14:54 Voided Urine Urine Culture - Preliminary Resulted 07/07/24 06:10 Sputum Gram Stain - Final Complete 07/07/24 06:10 Respiratory Culture - Final Staphylococcus aureus Complete 07/02/24 20:23 Stool Ova and Parasites - Final Complete 07/02/24 20:23 Stool - Final Complete Problem List/Assessment/Plan Problem List/Assessment/Plan VEL likely acute tubular necrosis in the setting of hypotension/sepsis +nephrotoxicity from Abx hyponatremia sec to Bactrim use recently hyperkalemia AIDS PCP PNA leukopenia Recommendations NS iv as ordered maintain map>65, vasopressors as needed chua kidney US noted ,,strict i and o events noted consideration for dialysis should renal function continues to deteriorate Discussed in detail with uncle bedside Plan discussed with: Other My Orders My Orders Orders - BAILEE WATTERS MD Procedure Category Date Status Time Sodium Chloride 0.9% PHA 07/13/24 In Process 11:30 Dietary Evaluation Review Comments: Encourage and monitor PO intake to meet 75% of his needs Expected Outcomes/Goals: free from symptoms, gradual weight gain. BAILEE WATTERS MD Jul 13, 2024 12:51
[2024-07-13 14:07] LABS: Anisocytosis Slight; Band Neutrophils % (manual) 8; Large Platelets FEW; Lymphocytes % (manual) 2 (10.0-50.0); Metamyelocytes % 1; Monocytes % (manual) 7 (0-12); Myelocytes % 1
[2024-07-13 14:08] LABS: Giant Platelets Few
[2024-07-13 14:11] LABS: Ovalocytes FEW; Platelet Estimate Adequate
--- NOTE | 2024-07-13 14:12 | DVHPN2 ---
Progress Note Date Seen: Jul 13, 2024 Resident Creating Document: MING VALENTIN RESIDENT Has the PT tested + for MRSA If YES, has PT been informed?: Yes Medical Necessity Reason Pt with a Central, PICC or Fol: No Subjective Review of Systems Seen and examined at the bedside. Objective vital signs Vital Sign Date Time Temp Pulse Resp B/P (MAP) Pulse Ox O2 Delivery O2 Flow Rate FiO2 07/13/24 13:15 97.0 93 26 98/69 (79) 97 206.6 07/13/24 08:00 Room Air* 0 21 Total Intake and Output 07/12/24 07/12/24 07/13/24 14:59 22:59 06:59 Intake Total 1000 ml 900 ml 1148 ml Output Total 950 ml 750 ml Balance 1000 ml -50 ml 398 ml medications Current Medications Medications Dose Ordered Sig/Sean Route Start Time Stop Time Status Last Admin Dose Admin Guaifenesin/ Dextromethorphan 10 ml Q4HP PRN PO 06/08/24 11:00 07/10/24 01:48 10 ML Morphine Sulfate 1 mg Q4HPRN PRN IV 06/16/24 14:00 07/11/24 18:09 1 MG Ondansetron HCl 4 mg Q4HP PRN IV 06/21/24 16:00 07/11/24 06:17 4 MG Nystatin 5 ml QID MT 06/27/24 12:00 07/13/24 11:33 5 ML Pantoprazole Sodium 40 mg DAILY@0600 PO 06/29/24 06:00 07/10/24 05:57 40 MG Ursodiol 300 mg BID PO 06/28/24 22:00 07/13/24 09:41 300 MG Morphine Sulfate 2 mg Q4HPRN PRN IV 06/29/24 16:45 Docusate Sodium 200 mg DAILYPRN PRN PO 07/02/24 14:30 Artificial Tears 1 drop Q6HP PRN EACHEYE 07/03/24 14:00 07/04/24 05:19 1 DROP Sodium Chloride 2 gm BID PO 07/04/24 14:15 07/13/24 09:41 2 GM Acetaminophen 650 mg Q6HP PRN PO 07/07/24 17:30 07/10/24 16:30 650 MG Linezolid 300 ml @ 150 mls/hr Q12HR IV 07/11/24 22:00 07/13/24 09:41 150 MLS/HR Metoclopramide HCl 5 mg Q8HPRN PRN IV 07/12/24 12:00 Cefepime HCl 50 ml @ 12.5 mls/hr Q24H IV 07/13/24 12:00 07/13/24 11:33 12.5 MLS/HR Amino Acids 0 ml @ 0 mls/hr PER PHARMACY IV 07/12/24 17:15 Diagnostic Test (Pha) 1 strip Q6HR 07/12/24 18:00 07/13/24 12:00 1 STRIP Insulin Human Regular FOLLOW SLIDING SCALE Q6HR SC 07/12/24 18:00 Dextrose 50 ml UD IV 07/12/24 17:45 Amino Acids/ Electrolytes/ Dextrose 1,000 ml @ 41 mls/hr DAILY@2200 IV 07/12/24 22:00 07/12/24 22:06 41 MLS/HR Levetiracetam 100 ml @ 400 mls/hr BID IV 07/12/24 22:00 07/13/24 09:41 400 MLS/HR Lorazepam 1 mg Q5MINP PRN IV 07/12/24 21:15 Sodium Chloride 1,000 ml @ 75 mls/hr [id number] IV 07/13/24 11:30 07/13/24 11:30 75 MLS/HR Examination Patient lying in bed, not communicating, maintaining airway General: Febrile, palor, mucosae are moist Cardiovascular: Regular S1 and S2. No murmurs, gallops or rubs. No JVD elevation. No pedal edema Respiratory: Normal B/L air entry on room air. Clear lung sounds on auscultation Abdomen: Soft, nontender, nondistended, hyperactive bowel sounds, no rebound tenderness, no organomegaly, no masses Genitourinary: Deferred MSK/skin: Mobilizes 4 limbs. Skin is dry and warm Psych/Mental Status: A/Ox0 laboratory and microbiology Laboratory Tests 07/13/24 11:00 07/13/24 07:50 Test 07/13/24 07:50 Range/Units Serum Glucose 119 H 74-106 mg/dL Microbiology Date/Time Source Procedure Growth Status 07/11/24 20:09 Blood Blood Culture - Preliminary NO GROWTH AFTER 24 HOURS OF INCUBATION. Resulted 07/11/24 19:32 Other Pending Resulted 07/11/24 19:32 Other Pending Resulted 07/11/24 19:32 Other Pending Resulted 07/11/24 19:32 Other Pending Resulted 07/11/24 19:32 Other - Final See Separate Report... Resulted 07/11/24 19:32 Cerebral Spinal Fluid Gram Stain - Final Resulted 07/11/24 19:32 Cerebral Spinal Fluid CSF Culture & Gram Stain (Tube 2) M - Preliminary Resulted 07/11/24 14:54 Voided Urine Urine Culture - Preliminary Resulted 07/07/24 06:10 Sputum Gram Stain - Final Complete 07/07/24 06:10 Respiratory Culture - Final Staphylococcus aureus Complete 07/02/24 20:23 Stool Ova and Parasites - Final Complete 07/02/24 20:23 Stool - Final Complete Labs and/or images reviewed: Labs reviewed by me, Image(s) reviewed by me Problem List/Assessment/Plan Problem List/Assessment/Plan Altered mental status ? Seizure - active Transaminitis secondary to HIV versus medication induced, negative hepatitis panel, MRCP negative ? 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 no filling defects. Plan: Recommend transferring to higher level of care Follow up with C diff studies, stool WBC and stool Cryptosporidium Continue Clinimix Stool sample sent for studies. Follow up with the ova and parasite. Stool WBC negative. LFTs trending down. Patient is started on cefepime and linezolid by ID, vanco was DC given worsening creatinine. Bactrim also the seed given worsening creatinine. Pending AFB culture Consider stool studies for Cryptosporidium and isospora Continue supportive care Pantoprazole 40 mg daily LFTs trending down Patient will be started on to Biktarvy as an outpatient Avoid NSAIDs Plan discussed with patient in which all questions have been answered Case discussed with Dr. Robins Plan discussed with: Patient Dietary Evaluation Review Comments: 1. advance diet when medically feasible: Renal Sepcific 40g Protein restriction diet, supplement his protein needs with clinimix @ 41ml/hr (42.5 gPro 510 kcal) 2. TPN per pharmacy if NPO > 7 days Expected Outcomes/Goals: gradual wt gain, improved nutrition status. grdual healed wounds. MING VALENTIN RESIDENT Jul 13, 2024 14:12
[2024-07-13] MEDS: POTASSIUM CHL 20MEQ/100ML 100 ML IV ONE (14:45)
--- NOTE | 2024-07-13 15:53 | DVHPN2 ---
Consult Progress Note Date Seen: Jul 13, 2024 Objective vital signs Vital Sign Date Time Temp Pulse Resp B/P (MAP) Pulse Ox O2 Delivery O2 Flow Rate FiO2 07/13/24 13:15 97.0 93 26 98/69 (79) 97 206.6 07/13/24 08:00 Room Air* 0 21 Total Intake and Output 07/12/24 07/12/24 07/13/24 15:00 23:00 07:00 Intake Total 1000 ml 1041 ml 1148 ml Output Total 950 ml 750 ml Balance 1000 ml 91 ml 398 ml medications Current Medications Medications Dose Ordered Sig/Sean Route Start Time Stop Time Status Last Admin Dose Admin Guaifenesin/ Dextromethorphan 10 ml Q4HP PRN PO 06/08/24 11:00 07/10/24 01:48 10 ML Morphine Sulfate 1 mg Q4HPRN PRN IV 06/16/24 14:00 07/11/24 18:09 1 MG Ondansetron HCl 4 mg Q4HP PRN IV 06/21/24 16:00 07/11/24 06:17 4 MG Nystatin 5 ml QID MT 06/27/24 12:00 07/13/24 11:33 5 ML Pantoprazole Sodium 40 mg DAILY@0600 PO 06/29/24 06:00 07/10/24 05:57 40 MG Ursodiol 300 mg BID PO 06/28/24 22:00 07/13/24 09:41 300 MG Morphine Sulfate 2 mg Q4HPRN PRN IV 06/29/24 16:45 Docusate Sodium 200 mg DAILYPRN PRN PO 07/02/24 14:30 Artificial Tears 1 drop Q6HP PRN EACHEYE 07/03/24 14:00 07/04/24 05:19 1 DROP Sodium Chloride 2 gm BID PO 07/04/24 14:15 07/13/24 09:41 2 GM Acetaminophen 650 mg Q6HP PRN PO 07/07/24 17:30 07/10/24 16:30 650 MG Linezolid 300 ml @ 150 mls/hr Q12HR IV 07/11/24 22:00 07/13/24 09:41 150 MLS/HR Metoclopramide HCl 5 mg Q8HPRN PRN IV 07/12/24 12:00 Cefepime HCl 50 ml @ 12.5 mls/hr Q24H IV 07/13/24 12:00 07/13/24 11:33 12.5 MLS/HR Amino Acids 0 ml @ 0 mls/hr PER PHARMACY IV 07/12/24 17:15 Diagnostic Test (Pha) 1 strip Q6HR 07/12/24 18:00 07/13/24 12:00 1 STRIP Insulin Human Regular FOLLOW SLIDING SCALE Q6HR SC 07/12/24 18:00 Dextrose 50 ml UD IV 07/12/24 17:45 Amino Acids/ Electrolytes/ Dextrose 1,000 ml @ 41 mls/hr DAILY@2200 IV 07/12/24 22:00 07/12/24 22:06 41 MLS/HR Levetiracetam 100 ml @ 400 mls/hr BID IV 07/12/24 22:00 07/13/24 09:41 400 MLS/HR Lorazepam 1 mg Q5MINP PRN IV 07/12/24 21:15 Sodium Chloride 1,000 ml @ 75 mls/hr [id number] IV 07/13/24 11:30 07/13/24 11:30 75 MLS/HR laboratory and microbiology Laboratory Tests 07/13/24 11:00 07/13/24 07:50 Test 07/13/24 07:50 Range/Units Serum Glucose 119 H 74-106 mg/dL Problem List/Assessment/Plan Problems(with codes): (1) AIDS (acquired immune deficiency syndrome) (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 Vu. at the time of visit. Patient is an HIV patient , 28 years old and diagnosed in may 2024 [facility] and transferred to [facility] . Patient seen by myself and Dr Benito reviewed chart and disscussed paln with Dr Benito . Patient CD4 count of 10 , viral load over 1 million and patient presented with acute hypoxic respiratory failure fevers and has been in hospital for about 1 month and in ICU requiring levofed . has a bronchoscopy done showing BAL cytology finding consistency with PJP pneumonia so started on bactrum from 7 days and then discontinued due to patient developing LFT elevation as well as hyperbilirubinemia . switched to climdamycin then discontinued due to patient improving and put on room ai r, evaluated for TB , AFB sputum has been negative and MTBPCR x2 has been negative however after 2 weeks 1 of patients sputum is growing AFB organism thats yet to be identified. feels a bit weak and has been having weightloss , fevers , chills for the last several months, last febrile was 48 hours ago with a temp of 100.5 and is neuropenic with a whitecount of 1.2 and is tachycardic with HR of 128 . low body weight of 54.1 kg and kexia and poor historia , having anemia with a hemoglobin of 7.6 which has been going down during admission . problem list includes HIV Aids , pneumonia , multi opportunistic organism infection including PJP and possibly TB vs Mac infection , cytopenias , neutropenic fever , sepsis , anemia , UTI with enterococcus . 12 point review systems and vitals signs and relevant imaging has been reviewed by me . plan for patient would be to stop ampicillin and start vancomycin and cefamine empirically due to fevers and unresolved sepsis and continue until fevers have resolved for 48 hours and meutropenia has improved . would check prior hold HAART therapy until TB infection is ruled out as cryptococal toxoplasm and CMV infections . check serologies for these and would restart patient on bactrum to finish 21 day course , will monitor LFTs and anemia . recommend checking AFB blood in stool for further evaluation of MAC infection and follow up on AFB cultures . continue airborne and droplet isolation precautions 2/4; continues to be febrile and was reported by Dr Vu in the AM to be more alert , lethargic and not responding to questions but responding to deep sternal rub . patients whitecount is rising and kidney function is worsening. Is on room air and can forgo PJP treatments since it is unlikely playing a large role in septic picture and patietns on room ait . Patient weighs 106 lbs , so attempt to lower bactrum to 1 double strength tablet 3x a day and monitor kidney function , can stop vancomycin in setting of VEL and will switch to linasolid and continue cefepime. If mentation does not improve in next 24 hours patient will need lumbar puncture. recommend repeating blood cultures and doing a chest ct of abdomen and pelvis Otherwise reviewed and agree with Dr Vu's findings, A/P as written in note. PE: General Appearance: Cooperative. Well developed. Well nourished. NAD Head Exam: Normal inspection Neck Exam: Normal inspection. Non-tender. Normal alignment Pulmonary/Respiratory: Chest non-tender. Clear bilateral breath sounds. crackles in lungs Cardiovascular/Chest: tacycardic No murmurs. No JVD. Abdominal Exam: Normal bowel sounds. Soft. Nontender. No hepatosplenomegaly. No masses Ankle Exam: Lower extremities: Jono Guzman MD Plan discussed with: Other Dietary Evaluation Review Comments: 1. advance diet when medically feasible: Renal Sepcific 40g Protein restriction diet, supplement his protein needs with clinimix @ 41ml/hr (42.5 gPro 510 kcal) 2. TPN per pharmacy if NPO > 7 days Expected Outcomes/Goals: gradual wt gain, improved nutrition status. grdual healed wounds. JONO GUZMAN MD Jul 13, 2024 15:53
--- NOTE | 2024-07-13 16:06 | DVHPN2 ---
Consult Progress Note Date Seen: Jul 11, 2024 Objective vital signs Vital Sign Date Time Temp Pulse Resp B/P (MAP) Pulse Ox O2 Delivery O2 Flow Rate FiO2 07/13/24 13:15 97.0 93 26 98/69 (79) 97 206.6 07/13/24 08:00 Room Air* 0 21 Total Intake and Output 07/12/24 07/12/24 07/13/24 15:00 23:00 07:00 Intake Total 1000 ml 1041 ml 1148 ml Output Total 950 ml 750 ml Balance 1000 ml 91 ml 398 ml medications Current Medications Medications Dose Ordered Sig/Sean Route Start Time Stop Time Status Last Admin Dose Admin Guaifenesin/ Dextromethorphan 10 ml Q4HP PRN PO 06/08/24 11:00 07/10/24 01:48 10 ML Morphine Sulfate 1 mg Q4HPRN PRN IV 06/16/24 14:00 07/11/24 18:09 1 MG Ondansetron HCl 4 mg Q4HP PRN IV 06/21/24 16:00 07/11/24 06:17 4 MG Nystatin 5 ml QID MT 06/27/24 12:00 07/13/24 11:33 5 ML Pantoprazole Sodium 40 mg DAILY@0600 PO 06/29/24 06:00 07/10/24 05:57 40 MG Ursodiol 300 mg BID PO 06/28/24 22:00 07/13/24 09:41 300 MG Morphine Sulfate 2 mg Q4HPRN PRN IV 06/29/24 16:45 Docusate Sodium 200 mg DAILYPRN PRN PO 07/02/24 14:30 Artificial Tears 1 drop Q6HP PRN EACHEYE 07/03/24 14:00 07/04/24 05:19 1 DROP Sodium Chloride 2 gm BID PO 07/04/24 14:15 07/13/24 09:41 2 GM Acetaminophen 650 mg Q6HP PRN PO 07/07/24 17:30 07/10/24 16:30 650 MG Linezolid 300 ml @ 150 mls/hr Q12HR IV 07/11/24 22:00 07/13/24 09:41 150 MLS/HR Metoclopramide HCl 5 mg Q8HPRN PRN IV 07/12/24 12:00 Cefepime HCl 50 ml @ 12.5 mls/hr Q24H IV 07/13/24 12:00 07/13/24 11:33 12.5 MLS/HR Amino Acids 0 ml @ 0 mls/hr PER PHARMACY IV 07/12/24 17:15 Diagnostic Test (Pha) 1 strip Q6HR 07/12/24 18:00 07/13/24 12:00 1 STRIP Insulin Human Regular FOLLOW SLIDING SCALE Q6HR SC 07/12/24 18:00 Dextrose 50 ml UD IV 07/12/24 17:45 Amino Acids/ Electrolytes/ Dextrose 1,000 ml @ 41 mls/hr DAILY@2200 IV 07/12/24 22:00 07/12/24 22:06 41 MLS/HR Levetiracetam 100 ml @ 400 mls/hr BID IV 07/12/24 22:00 07/13/24 09:41 400 MLS/HR Lorazepam 1 mg Q5MINP PRN IV 07/12/24 21:15 Sodium Chloride 1,000 ml @ 75 mls/hr [id number] IV 07/13/24 11:30 07/13/24 11:30 75 MLS/HR laboratory and microbiology Laboratory Tests 07/13/24 11:00 07/13/24 07:50 Test 07/13/24 07:50 Range/Units Serum Glucose 119 H 74-106 mg/dL Problem List/Assessment/Plan Problems(with codes): (1) Atypical pneumonia (2) HIV (human immunodeficiency virus infection) (3) Hyponatremia (4) Elevated liver enzymes (5) History of SIADH (6) Sclerosing cholangitis associated with HIV disease (7) AIDS (acquired immune deficiency syndrome) Problem List/Assessment/Plan _ Attending Addendum: Case discussed with Dr. Vu. at the time of visit. Patient is an HIV patient , 28 years old and diagnosed in may 2024 [facility] and transferred to [facility] . Patient seen by myself and Dr Benito reviewed chart and disscussed paln with Dr Benito . Patient CD4 count of 10 , viral load over 1 million and patient presented with acute hypoxic respiratory failure fevers and has been in hospital for about 1 month and in ICU requiring levofed . has a bronchoscopy done showing BAL cytology finding consistency with PJP pneumonia so started on bactrum from 7 days and then discontinued due to patient developing LFT elevation as well as hyperbilirubinemia . switched to climdamycin then discontinued due to patient improving and put on room ai r, evaluated for TB , AFB sputum has been negative and MTBPCR x2 has been negative however after 2 weeks 1 of patients sputum is growing AFB organism thats yet to be identified. feels a bit weak and has been having weightloss , fevers , chills for the last several months, last febrile was 48 hours ago with a temp of 100.5 and is neuropenic with a whitecount of 1.2 and is tachycardic with HR of 128 . low body weight of 54.1 kg and kexia and poor historia , having anemia with a hemoglobin of 7.6 which has been going down during admission . problem list includes HIV Aids , pneumonia , multi opportunistic organism infection including PJP and possibly TB vs Mac infection , cytopenias , neutropenic fever , sepsis , anemia , UTI with enterococcus . 12 point review systems and vitals signs and relevant imaging has been reviewed by me . plan for patient would be to stop ampicillin and start vancomycin and cefamine empirically due to fevers and unresolved sepsis and continue until fevers have resolved for 48 hours and meutropenia has improved . would check prior hold HAART therapy until TB infection is ruled out as cryptococal toxoplasm and CMV infections . check serologies for these and would restart patient on bactrum to finish 21 day course , will monitor LFTs and anemia . recommend checking AFB blood in stool for further evaluation of MAC infection and follow up on AFB cultures . continue airborne and droplet isolation precautions 2/4; continues to be febrile and was reported by Dr Vu in the AM to be more alert , lethargic and not responding to questions but responding to deep sternal rub . patients whitecount is rising and kidney function is worsening. Is on room air and can forgo PJP treatments since it is unlikely playing a large role in septic picture and patietns on room ait . Patient weighs 106 lbs , so attempt to lower bactrum to 1 double strength tablet 3x a day and monitor kidney function , can stop vancomycin in setting of VEL and will switch to linasolid and continue cefepime. If mentation does not improve in next 24 hours patient will need lumbar puncture. recommend repeating blood cultures and doing a chest ct of abdomen and pelvis 07/11: remains uptunded but is able to protenct airway , underwent a lumbar puncture earlier in the day and is still not responsive and pulling out lines . no fever in the last 24 hours but patient is having rising keratin , BUN 68 which is possibly contributing to an altered mental staus . however would want to rule out any type of infectious meningitis in the setting of AIDs for lumbar punture recommend bacterial AFB fungal culture , viral culture , CMV antibuody , VZV antibody , cryptococcus antibody , coxy antibody , RPR , HSVPR , PCR , VDRL . Continue linazolid and cefepime which will provide patient with adequate menegitis coverage . unclear ideology staus at this stime but suspect its a combination of HIV encephalopathy with providing a low baseline mentation in setting of uremia , worsening kidney function may be attributable to bactrum vs HIV nephropathy . Patients BP is holding steady a bit on the low side , waiting to follow up on AFB culture speciation to see if we are attempting to treat MAC vs TB . Hold of on HAART therapy for now while awaiting results for cryptococcal and AFB studies. will hold off bactrum to avoid worsening keratin from nephrotoxicity and PJP is not a priority to treat at this time Otherwise reviewed and agree with Dr Vu's findings, A/P as written in note. PE: General Appearance: Cooperative. Well developed. Well nourished. NAD Head Exam: Normal inspection Neck Exam: Normal inspection. Non-tender. Normal alignment Pulmonary/Respiratory: Chest non-tender. Clear bilateral breath sounds. crackles in lungs Cardiovascular/Chest: tacycardic No murmurs. No JVD. Abdominal Exam: Normal bowel sounds. Soft. Nontender. No hepatosplenomegaly. No masses Ankle Exam: Lower extremities: Jono Guzman MD Plan discussed with: Other Dietary Evaluation Review Comments: 1. advance diet when medically feasible: Renal Sepcific 40g Protein restriction diet, supplement his protein needs with clinimix @ 41ml/hr (42.5 gPro 510 kcal) 2. TPN per pharmacy if NPO > 7 days Expected Outcomes/Goals: gradual wt gain, improved nutrition status. grdual healed wounds. JONO GUZMAN MD Jul 13, 2024 16:06
[2024-07-13] MEDS: AZITHROMYCIN 500MG/ 250ML 250 ML IV ONE (18:00)
--- NOTE | 2024-07-13 19:29 | DVHPN2 ---
Progress Note - Dictate Date Seen: Jul 13, 2024 Has the PT tested + for MRSA If YES, has PT been informed?: Yes Medical Necessity Reason Pt with a Central, PICC or Fol: No Subjective PATIENT DOES NOT WANT ANY INFORMATION SHARED 07/13/24 Re-Assessment Re: HIGINIO HUANG spoke with patient uncle Blaine ([phone]) in regards to patients wishes when he was a/ox4. Per patient he did not want any family to be provided with any medical information. Since patient is unable to make any medical decisions at that moment, who will make any medical decisions would have to be determined. [employer] Producer will be consulted. Per patients Uncle patient has no Next of Kin, last remaining member of his immediate family. Mr. Moss is a 28 years old gentleman with a history of HIV/aids, he was transferred from the [facility] on 06/08/2024 for further evaluation treatment. On 07/11/24, he had seizure-like activity however his nurse and medical staff did not witnessed symptoms. I have seen and examined the patient, I have discussed with his nurse and the medical staff, mentally there is no obvious change, the patient was eyes are open, but is nonresponsive to verbal stimuli, eyes deviated to the left side, mild twitching in the right face, bilateral shoulder, arms, legs, and torso CSF, 07/11/2024: RBC: Five, protein: 46 found eight, glucose: 49 UDS, 06/26/2024: Opiates Plasma alcohol, 06/25/2024: Normal Urinalysis, 07/17/2024: WBC: Negative, urine leukocyte esterase: Negative WBC/HB/PLT/MCV, 07/12/2024: 4.4/6.4/331/78 0.1 PT/INR/PTT, 06/15/2024: 0.2/35/29/112, 06/12/2024: 11.1/1.06/29.3 Na, 06/08/2024: 136, 06/15/24:129, 06/20/24: 122, 06/24/2024: 117, 06/25 06/30: 121, 07/03/2024: 120, 07/06/2024: 123, 07/12/24: 132 BUN/CR, 07/02/2024: 15/0.49 07/12/2024: 68/4.30 TBI/AST/ALT/AP, 06/24/2024: 4.10/2515/1321/482, 07/02/2024: 9.8/71/196/710, 07/12/2024: 3.2/79/50/395 EEG, 07/13/2024: Electrographic status epileptics CT head, 07/11/2024: No acute intracranial process. MRI head, 07/06/2024: No acute cardiopulmonary disease. vital signs Vital Sign Date Time Temp Pulse Resp B/P (MAP) Pulse Ox O2 Delivery O2 Flow Rate FiO2 07/13/24 19:15 97.2 95 22 108/66 (80) 98 207.0 07/13/24 08:00 Room Air* 0 21 Total Intake and Output 07/12/24 07/12/24 07/13/24 15:00 23:00 07:00 Intake Total 1000 ml 1041 ml 1148 ml Output Total 950 ml 750 ml Balance 1000 ml 91 ml 398 ml medications Current Medications Medications Dose Ordered Sig/Sean Route Start Time Stop Time Status Last Admin Dose Admin Guaifenesin/ Dextromethorphan 10 ml Q4HP PRN PO 06/08/24 11:00 07/10/24 01:48 10 ML Morphine Sulfate 1 mg Q4HPRN PRN IV 06/16/24 14:00 07/11/24 18:09 1 MG Ondansetron HCl 4 mg Q4HP PRN IV 06/21/24 16:00 07/11/24 06:17 4 MG Nystatin 5 ml QID MT 06/27/24 12:00 07/13/24 18:18 5 ML Pantoprazole Sodium 40 mg DAILY@0600 PO 06/29/24 06:00 07/10/24 05:57 40 MG Ursodiol 300 mg BID PO 06/28/24 22:00 07/13/24 09:41 300 MG Morphine Sulfate 2 mg Q4HPRN PRN IV 06/29/24 16:45 Docusate Sodium 200 mg DAILYPRN PRN PO 07/02/24 14:30 Artificial Tears 1 drop Q6HP PRN EACHEYE 07/03/24 14:00 07/04/24 05:19 1 DROP Sodium Chloride 2 gm BID PO 07/04/24 14:15 07/13/24 09:41 2 GM Acetaminophen 650 mg Q6HP PRN PO 07/07/24 17:30 07/10/24 16:30 650 MG Linezolid 300 ml @ 150 mls/hr Q12HR IV 07/11/24 22:00 07/13/24 09:41 150 MLS/HR Metoclopramide HCl 5 mg Q8HPRN PRN IV 07/12/24 12:00 Cefepime HCl 50 ml @ 12.5 mls/hr Q24H IV 07/13/24 12:00 07/13/24 11:33 12.5 MLS/HR Amino Acids 0 ml @ 0 mls/hr PER PHARMACY IV 07/12/24 17:15 Diagnostic Test (Pha) 1 strip Q6HR 07/12/24 18:00 07/13/24 18:20 1 STRIP Insulin Human Regular FOLLOW SLIDING SCALE Q6HR SC 07/12/24 18:00 Dextrose 50 ml UD IV 07/12/24 17:45 Amino Acids/ Electrolytes/ Dextrose 1,000 ml @ 41 mls/hr DAILY@2200 IV 07/12/24 22:00 07/12/24 22:06 41 MLS/HR Levetiracetam 100 ml @ 400 mls/hr BID IV 07/12/24 22:00 07/13/24 09:41 400 MLS/HR Lorazepam 1 mg Q5MINP PRN IV 07/12/24 21:15 Sodium Chloride 1,000 ml @ 75 mls/hr [id number] IV 07/13/24 11:30 07/13/24 11:30 75 MLS/HR Azithromycin 250 ml @ 125 mls/hr DAILY@1800 IV 07/14/24 18:00 Rifampin 600 mg DAILY GT 07/14/24 10:00 UNV Ethambutol HCl 800 mg DAILY PO 07/13/24 18:00 UNV objective General: the patient is well developed and nourished. No acute distress. MENTAL STATUS: Subjective SPEECH, LANGUAGE, HIGHER CORTICAL FUNCTION: Deferred CRANIAL NERVES: Pupils are equal, round and reactive. Eyes deviated to deviated to left side Facial muscles symmetrical and strength intact. SENSATION: Possibly responsive to painful stimuli MOTOR: Normal tone in the upper and lower extremity. Subtle muscle twitching in the right face, shoulders, torso and extremities REFLEXES: Deep tendon reflexes are symmetrical. No pathological reflexes. CEREBELLAR/COORDINATION: Deferred GAIT/STATION: deferred laboratory and microbiology Laboratory Tests 07/13/24 11:00 07/13/24 07:50 Test 07/13/24 07:50 Range/Units Serum Glucose 119 H 74-106 mg/dL Problem List Witnessed seizure-like activity Altered mental status ? Status epilepticus ? Metabolic encephalopathy Aids Anemia Leukopenia Kidney failure Elevated liver function tests Hyponatremia Assessment/Plan Monitoring Supportive treatment STELLA care Dilantin level Aerosol isolation Oxygen Respiratory support p.r.n. Stabilize vitals p.r.n. IV antibiotics Dilantin 1000 mg IV x1 Dilantin 100 mg IV Q 8 hours Keppra 1000 mg b.i.d. if okay with pharmacy Ativan for seizure breakthrough More recommendation per clinical course This medical document was created using an electronic medical record system with Unii dictation system. Although this document has been carefully reviewed, there may still be some phonetic and typographical errors. These areas are purely typographical due to imperfections of the software programs, and do not reflect any compromise in the patient's medical care Prognosis guarded Dietary Evaluation Review Comments: 1. advance diet when medically feasible: Renal Sepcific 40g Protein restriction diet, supplement his protein needs with clinimix @ 41ml/hr (42.5 gPro 510 kcal) 2. TPN per pharmacy if NPO > 7 days Expected Outcomes/Goals: gradual wt gain, improved nutrition status. grdual healed wounds. Plan discussed with: Other Critical Care Time(min): 35 JEFFERY CHAVEZ MD Jul 13, 2024 19:29
--- NOTE | 2024-07-13 20:56 | DVHPNRES ---
Progress Note Date Seen: Jul 13, 2024 Resident Creating Document: REGINE OCHOA RESIDENT Has the PT tested + for MRSA If YES, has PT been informed?: Yes Medical Necessity Reason Pt with a Central, PICC or Fol: No Subjective Review of Systems pt seen and examined at bedside is confused GCS 10 NG tube ordered IV clinimix 1 unit of PRBC upgraded to STELLA ROS could not be done Objective vital signs Vital Sign Date Time Temp Pulse Resp B/P (MAP) Pulse Ox O2 Delivery O2 Flow Rate FiO2 07/13/24 20:00 97.2 100 23 112/89 (97) 98 97.2 07/13/24 08:00 Room Air* 0 21 Total Intake and Output 07/12/24 07/12/24 07/13/24 15:00 23:00 07:00 Intake Total 1000 ml 1041 ml 1148 ml Output Total 950 ml 750 ml Balance 1000 ml 91 ml 398 ml medications Current Medications Medications Dose Ordered Sig/Sean Route Start Time Stop Time Status Last Admin Dose Admin Guaifenesin/ Dextromethorphan 10 ml Q4HP PRN PO 06/08/24 11:00 07/10/24 01:48 10 ML Morphine Sulfate 1 mg Q4HPRN PRN IV 06/16/24 14:00 07/11/24 18:09 1 MG Ondansetron HCl 4 mg Q4HP PRN IV 06/21/24 16:00 07/11/24 06:17 4 MG Nystatin 5 ml QID MT 06/27/24 12:00 07/13/24 18:18 5 ML Pantoprazole Sodium 40 mg DAILY@0600 PO 06/29/24 06:00 07/10/24 05:57 40 MG Ursodiol 300 mg BID PO 06/28/24 22:00 07/13/24 09:41 300 MG Morphine Sulfate 2 mg Q4HPRN PRN IV 06/29/24 16:45 Docusate Sodium 200 mg DAILYPRN PRN PO 07/02/24 14:30 Artificial Tears 1 drop Q6HP PRN EACHEYE 07/03/24 14:00 07/04/24 05:19 1 DROP Sodium Chloride 2 gm BID PO 07/04/24 14:15 07/13/24 09:41 2 GM Acetaminophen 650 mg Q6HP PRN PO 07/07/24 17:30 07/10/24 16:30 650 MG Linezolid 300 ml @ 150 mls/hr Q12HR IV 07/11/24 22:00 07/13/24 09:41 150 MLS/HR Metoclopramide HCl 5 mg Q8HPRN PRN IV 07/12/24 12:00 Cefepime HCl 50 ml @ 12.5 mls/hr Q24H IV 07/13/24 12:00 07/13/24 11:33 12.5 MLS/HR Amino Acids 0 ml @ 0 mls/hr PER PHARMACY IV 07/12/24 17:15 Diagnostic Test (Pha) 1 strip Q6HR 07/12/24 18:00 07/13/24 18:20 1 STRIP Insulin Human Regular FOLLOW SLIDING SCALE Q6HR SC 07/12/24 18:00 Dextrose 50 ml UD IV 07/12/24 17:45 Amino Acids/ Electrolytes/ Dextrose 1,000 ml @ 41 mls/hr DAILY@2200 IV 07/12/24 22:00 07/12/24 22:06 41 MLS/HR Levetiracetam 100 ml @ 400 mls/hr BID IV 07/12/24 22:00 07/13/24 09:41 400 MLS/HR Lorazepam 1 mg Q5MINP PRN IV 07/12/24 21:15 Sodium Chloride 1,000 ml @ 75 mls/hr [id number] IV 07/13/24 11:30 07/13/24 11:30 75 MLS/HR Azithromycin 250 ml @ 125 mls/hr DAILY@1800 IV 07/14/24 18:00 Rifampin 600 mg DAILY@2100 GT 07/13/24 21:00 Ethambutol HCl 800 mg MWF GT 07/13/24 21:00 Examination Examination General Appearance: confused HEENT: EOMI Respiratory: Clear to auscultation, Normal air movement Cardiovascular: Regular rate, Normal S1, Normal S2 Abdominal: Normal bowel sounds Extremities: No cyanosis, No edema, Normal pulses, No tenderness/swelling Skin: No rashes, No breakdown Neuro: confused , hypertonic laboratory and microbiology Laboratory Tests 07/13/24 11:00 07/13/24 07:50 Test 07/13/24 07:50 Range/Units Serum Glucose 119 H 74-106 mg/dL Microbiology Date/Time Source Procedure Growth Status 07/11/24 20:09 Blood Blood Culture - Preliminary NO GROWTH AFTER 48 HOURS OF INCUBATION. Resulted 07/11/24 19:32 Other Pending Resulted 07/11/24 19:32 Other Pending Resulted 07/11/24 19:32 Other Pending Resulted 07/11/24 19:32 Other Pending Resulted 07/11/24 19:32 Other - Final See Separate Report... Resulted 07/11/24 19:32 Cerebral Spinal Fluid Gram Stain - Final Resulted 07/11/24 19:32 Cerebral Spinal Fluid CSF Culture & Gram Stain (Tube 2) M - Preliminary Resulted 07/11/24 14:54 Voided Urine Urine Culture - Preliminary Resulted 07/07/24 06:10 Sputum Gram Stain - Final Complete 07/07/24 06:10 Respiratory Culture - Final Staphylococcus aureus Complete 07/02/24 20:23 Stool Ova and Parasites - Final Complete 07/02/24 20:23 Stool - Final Complete Labs and/or images reviewed: Labs reviewed by me, Image(s) reviewed by me Problem List/Assessment/Plan Problem List/Assessment/Plan Assessment/plan Neurology #Metabolic encephalopathy due to sepsis/?meningitis -Head CT #?Seizure due to ?Meningitis -Head CT -ativan prn -IV kepra -neurology consult #?Meningitis -IV antibiotics as per ID -LP done Cardiology # shock likely due to septic shock -patient is off vasopressors since yesterday -started on IV fluids -IV fluids per Nephrology Respiratory # acute hypoxic respiratory 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 -currently on room air #Multifocal pneumonia, Pneumocystis Jerovoci or Carini Pneumonia ( opportunistic infection) -patient was initially on Bactrim was discontinued -infectious disease on board -IV antibiotics #Pulmonary nodule, 2 cm in size -seen on imaging GI #Transaminitis with elevated bilirubin ?cholangiopathy/medication induced -monitor Urology #UTI Enterococcus faecalis -ampicillin stopped by ID Endocrine #Left adrenal nodule -cortisol AM Hematology/Oncology # microcytic anemia, Severe, requiring blood transfusion -1 unit of PRBC Monitor # leukopenia with neutropenic fever ?likely due to sepsis -monitor Nephrology #VEL due to ?bacterim use -nephrology on board -IV fluids #Hyponatremia ?SIADH due to PCP pneumonia/bacterim use -monitor #hypokalemia -corrected #Hyperkalemia -corrected Infectious disease #oral candidiasis -nystatin swish and swallow #AIDS, CD4 count less than 10 -ID on board #Acid-fast bacilli culture positive ? Rule out tuberculosis/MAC infection -ID on board #Pneumocystis Jerovoci or Carini Pneumonia ( opportunistic infection) -ID on board Social Homosexual Lines peripheral IV Drips off norepi drip DVT prophylaxis SCD PUD prophylaxis not indicated nutrition will start enteral feeding Code status discussed with the pt >21min , FULL CODE Critical care time excluding procedures : 63 minutes pt upgraded to STELLA Case discussion with Dr Carmichael Plan discussed with: Other Dietary Evaluation Review Comments: 1. advance diet when medically feasible: Renal Sepcific 40g Protein restriction diet, supplement his protein needs with clinimix @ 41ml/hr (42.5 gPro 510 kcal) 2. TPN per pharmacy if NPO > 7 days Expected Outcomes/Goals: gradual wt gain, improved nutrition status. grdual healed wounds. REGINE OCHOA RESIDENT Jul 13, 2024 20:56
--- NOTE | 2024-07-13 21:12 | DVHPN2 ---
ELVA UV RESIDENT 07/13/242111: Consult Progress Note Date Seen: Jul 13, 2024 Subjective Patient reports: No new complaints Other Systems: Patient seen and examined at bedside. Patient continued to be altered, not able to answer any questions, GCS probably 10. Culture came back postiive for MAC infection, Had few episodes of vomiting, one episode of watert stool. Physical Exam General Appearance: Altered, protecting his airway, responding to pain stimuli, reactive pupils, Head Exam: Normal inspection Neck Exam: Normal inspection. Non-tender. Normal alignment Pulmonary/Respiratory: Chest non-tender. Clear bilateral breath sounds Cardiovascular/Chest: Regular rate and rhythm. No murmurs. No JVD. Peripheral Pulses: 2+ Radial (R). 2+ Radial (L). 2+ Pedal (R). 2+ Pedal (L) Abdominal Exam: Normal bowel sounds. Soft. Nontender. No hepatospenomegaly. No masses Ankle Exam: Negative ankle edema Lower extremities: Negative lower extremity edema Neuro/Mental Status: Alert, not oriented to time place and person. Pupillary reflex present, upper and and lower extremity muscular strength 4/5. Sensory examination can not be done Objective vital signs Vital Sign Date Time Temp Pulse Resp B/P (MAP) Pulse Ox O2 Delivery O2 Flow Rate FiO2 07/13/24 20:00 97.2 100 23 112/89 (97) 98 97.2 07/13/24 08:00 Room Air* 0 21 Total Intake and Output 07/12/24 07/12/24 07/13/24 15:00 23:00 07:00 Intake Total 1000 ml 1041 ml 1148 ml Output Total 950 ml 750 ml Balance 1000 ml 91 ml 398 ml medications Current Medications Medications Dose Ordered Sig/Sean Route Start Time Stop Time Status Last Admin Dose Admin Guaifenesin/ Dextromethorphan 10 ml Q4HP PRN PO 06/08/24 11:00 07/10/24 01:48 10 ML Morphine Sulfate 1 mg Q4HPRN PRN IV 06/16/24 14:00 07/11/24 18:09 1 MG Ondansetron HCl 4 mg Q4HP PRN IV 06/21/24 16:00 07/11/24 06:17 4 MG Nystatin 5 ml QID MT 06/27/24 12:00 07/13/24 18:18 5 ML Pantoprazole Sodium 40 mg DAILY@0600 PO 06/29/24 06:00 07/10/24 05:57 40 MG Ursodiol 300 mg BID PO 06/28/24 22:00 07/13/24 09:41 300 MG Morphine Sulfate 2 mg Q4HPRN PRN IV 06/29/24 16:45 Docusate Sodium 200 mg DAILYPRN PRN PO 07/02/24 14:30 Artificial Tears 1 drop Q6HP PRN EACHEYE 07/03/24 14:00 07/04/24 05:19 1 DROP Sodium Chloride 2 gm BID PO 07/04/24 14:15 07/13/24 09:41 2 GM Acetaminophen 650 mg Q6HP PRN PO 07/07/24 17:30 07/10/24 16:30 650 MG Linezolid 300 ml @ 150 mls/hr Q12HR IV 07/11/24 22:00 07/13/24 09:41 150 MLS/HR Metoclopramide HCl 5 mg Q8HPRN PRN IV 07/12/24 12:00 Cefepime HCl 50 ml @ 12.5 mls/hr Q24H IV 07/13/24 12:00 07/13/24 11:33 12.5 MLS/HR Amino Acids 0 ml @ 0 mls/hr PER PHARMACY IV 07/12/24 17:15 Diagnostic Test (Pha) 1 strip Q6HR 07/12/24 18:00 07/13/24 18:20 1 STRIP Insulin Human Regular FOLLOW SLIDING SCALE Q6HR SC 07/12/24 18:00 Dextrose 50 ml UD IV 07/12/24 17:45 Amino Acids/ Electrolytes/ Dextrose 1,000 ml @ 41 mls/hr DAILY@2200 IV 07/12/24 22:00 07/12/24 22:06 41 MLS/HR Levetiracetam 100 ml @ 400 mls/hr BID IV 07/12/24 22:00 07/13/24 09:41 400 MLS/HR Lorazepam 1 mg Q5MINP PRN IV 07/12/24 21:15 Sodium Chloride 1,000 ml @ 75 mls/hr [id number] IV 07/13/24 11:30 07/13/24 11:30 75 MLS/HR Azithromycin 250 ml @ 125 mls/hr DAILY@1800 IV 07/14/24 18:00 Rifampin 600 mg DAILY@2100 GT 07/13/24 21:00 Ethambutol HCl 800 mg MWF GT 07/13/24 21:00 laboratory and microbiology Laboratory Tests 07/13/24 11:00 07/13/24 07:50 Test 07/13/24 07:50 Range/Units Serum Glucose 119 H 74-106 mg/dL Problem List/Assessment/Plan Problem List/Assessment/Plan Pneumocystis Jerovoci or Carini Pneumonia ( opportunistic infection) AIDS, CD4 count less than 10 Acid-fast bacilli culture positive , Mycobacterium avium complex infection Neutropenic fever UTI Enterococcus faecalis Multifocal pneumonia Septic shock due to pneumonia: Currently off vasopressor Transaminitis with elevated bilirubin ? Age cholangiopathy/medication induced Hyponatremia likely due to SIADH Pulmonary nodule, 2 cm in size Left adrenal nodule Severe anemia Immunosuppressed Homosexual. Plan/recommendation Dr. Guzman -culture came back positive for Mycobacterium avium complex. DC isolation for tuberculosis. Initiated IV azithromycin, ethambutol 800 mg via G-tube. daily, rifampin 600 mg via G-tube daily. -Continue cefepime and linezolid for brought coverage of antibiotic given patient is in septic shock, requiring IV fluid bolus, vancomycin has been discontinued given worsening kidney function, we will continue with linezolid at this point. Oral Bactrim also has been discontinued given worsening kidney function. At this point given patient's saturating well on oxygen, we will hold off for PJP treatment at this point, we will more focus on underlying septic shock, we will continue with broad-spectrum at this point -We will hold of antiviral therapy at this point given worsening kidney function, pending CSF lab results. -CT scan of abdomen pelvis and chest showed likely infectious bronchiolitis, left lung lower lobe nodule, adrenal nodule, possible proctitis. No signs of abscess. -Holding anti-retroviral therapy until rule out tuberculosis/mac infection, pending further lab results of acid-fast bacilli culture, three acid-fast bacilli smear negative, two acid-fast bacilli PCR negative. HIV-1 viral load RNA:[id number]. We will need ART therapy, currently holding until ruled out possible active TB/MAC infection and cryptococcal infection. -Respiratory culture came back positive for Staphylococcus aureus. -Follow-up with acid-fast bacilli blood and stool, toxoplasma accordingly IgM/IgG G, cryptococcal antibody, chlamydia/gonorrhea amplification test, cytomegalovirus PCR. -Patient will also need HIV Genosure plus integrace for sensitivity to anti retroviral therapy -MRI brain negative for acute intracranial abnormality, less likely cryptococcus infection. -Check cMV PCR given possibility of low-level viremia -GI consultation for continue monitoring liver function -Pending G6PD test -Stool study negative for Campylobacter, Shiga toxin. -Bronchoscopy on 06/12/2024: Positive for PCP, negative for acid-fast bacilli. -MRCP 06/25 shows no biliary ductal dilation. no filling defects. Poor prognosis, guarded. Plan discussed with: Other (RN) Dietary Evaluation Review Comments: 1. advance diet when medically feasible: Renal Sepcific 40g Protein restriction diet, supplement his protein needs with clinimix @ 41ml/hr (42.5 gPro 510 kcal) 2. TPN per pharmacy if NPO > 7 days Expected Outcomes/Goals: gradual wt gain, improved nutrition status. grdual healed wounds. JONO GUZMAN MD 07/15/24 1420: Consult Progress Note Problem List/Assessment/Plan Problem List/Assessment/Plan _ Attending Addendum: Case discussed with Dr. Vu. at the time of visit. Patient is an HIV patient , 28 years old and diagnosed in may 2024 [facility] and transferred to [facility] . Patient seen by myself and Dr Benito reviewed chart and disscussed paln with Dr Benito . Patient CD4 count of 10 , viral load over 1 million and patient presented with acute hypoxic respiratory failure fevers and has been in hospital for about 1 month and in ICU requiring levofed . has a bronchoscopy done showing BAL cytology finding consistency with PJP pneumonia so started on bactrum from 7 days and then discontinued due to patient developing LFT elevation as well as hyperbilirubinemia . switched to climdamycin then discontinued due to patient improving and put on room ai r, evaluated for TB , AFB sputum has been negative and MTBPCR x2 has been negative however after 2 weeks 1 of patients sputum is growing AFB organism thats yet to be identified. feels a bit weak and has been having weightloss , fevers , chills for the last several months, last febrile was 48 hours ago with a temp of 100.5 and is neuropenic with a whitecount of 1.2 and is tachycardic with HR of 128 . low body weight of 54.1 kg and kexia and poor historia , having anemia with a hemoglobin of 7.6 which has been going down during admission . problem list includes HIV Aids , pneumonia , multi opportunistic organism infection including PJP and possibly TB vs Mac infection , cytopenias , neutropenic fever , sepsis , anemia , UTI with enterococcus . 12 point review systems and vitals signs and relevant imaging has been reviewed by me . plan for patient would be to stop ampicillin and start vancomycin and cefamine empirically due to fevers and unresolved sepsis and continue until fevers have resolved for 48 hours and meutropenia has improved . would check prior hold HAART therapy until TB infection is ruled out as cryptococal toxoplasm and CMV infections . check serologies for these and would restart patient on bactrum to finish 21 day course , will monitor LFTs and anemia . recommend checking AFB blood in stool for further evaluation of MAC infection and follow up on AFB cultures . continue airborne and droplet isolation precautions 2/4; continues to be febrile and was reported by Dr Vu in the AM to be more alert , lethargic and not responding to questions but responding to deep sternal rub . patients whitecount is rising and kidney function is worsening. Is on room air and can forgo PJP treatments since it is unlikely playing a large role in septic picture and patietns on room ait . Patient weighs 106 lbs , so attempt to lower bactrum to 1 double strength tablet 3x a day and monitor kidney function , can stop vancomycin in setting of VEL and will switch to linasolid and continue cefepime. If mentation does not improve in next 24 hours patient will need lumbar puncture. recommend repeating blood cultures and doing a chest ct of abdomen and pelvis 2/5: remains uptunded but is able to protenct airway , underwent a lumbar puncture earlier in the day and is still not responsive and pulling out lines . no fever in the last 24 hours but patient is having rising keratin , BUN 68 which is possibly contributing to an altered mental staus . however would want to rule out any type of infectious meningitis in the setting of AIDs for lumbar punture recommend bacterial AFB fungal culture , viral culture , CMV antibuody , VZV antibody , cryptococcus antibody , coxy antibody , RPR , HSVPR , PCR , VDRL . Continue linazolid and cefepime which will provide patient with adequate menegitis coverage . unclear ideology staus at this stime but suspect its a combination of HIV encephalopathy with providing a low baseline mentation in setting of uremia , worsening kidney function may be attributable to bactrum vs HIV nephropathy . Patients BP is holding steady a bit on the low side , waiting to follow up on AFB culture speciation to see if we are attempting to treat MAC vs TB . Hold of on HAART therapy for now while awaiting results for cryptococcal and AFB studies. will hold off Bactrim to avoid worsening keratin from nephrotoxicity and PJP is not a priority to treat at this time 2/: Is breathing on room air and remains largely obtained but is still protecting his airway . lumbar puncture bacterial culture suggests that there is no acute concern for bacterial infection in the CSF . Plan for patient to stop Bactrim due to rising creatine and continue empirical therapy with linezolid and cefepime . will continue to follow up on AFB culture results 07/13: continues to feel lethargic and not really waking up but does respond to sternal rub and is protecting his airway . no neck ridgitiy . AFB cultures have return positive for microbacterial avium complex still awaiting AFB blood and stool to confirm disseminated MAC infection so for now continue linezolid and cefepime therapy in addition will add ethambutol and rifampin and azithromycin via Ngtube . Would recommend repeating EKG to monitor QTC in 5 days as well as check LTFs daily while on rifampin therapy Otherwise reviewed and agree with Dr Vu's findings, A/P as written in note. PE: General Appearance: Cooperative. Well developed. Well nourished. NAD Head Exam: Normal inspection Neck Exam: Normal inspection. Non-tender. Normal alignment Pulmonary/Respiratory: Chest non-tender. Clear bilateral breath sounds. crackles in lungs Cardiovascular/Chest: tacycardic No murmurs. No JVD. Abdominal Exam: Normal bowel sounds. Soft. Nontender. No hepatosplenomegaly. No masses Ankle Exam: Lower extremities: ELVA VU Jul 13, 2024 21:12 JONO GUZMAN MD Jul 15, 2024 14:20
[2024-07-13] MEDS: PHENYTOIN IV DILANTIN 1,000 MG in SODIUM CHL 0.9% 250 ML IV ONE (21:15)
[2024-07-13] MEDS: rifAMPin 300 MG CAP GT SCH (21:48)
[2024-07-13] MEDS: ETHAMBUTOL HCL 400 MG TAB GT SCH (21:48)
--- NOTE | 2024-07-13 21:55 | DVHPNRES ---
Progress Note Date Seen: Jul 13, 2024 Resident Creating Document: REGINE OCHOA RESIDENT Has the PT tested + for MRSA If YES, has PT been informed?: Yes Medical Necessity Reason Pt with a Central, PICC or Fol: No Subjective Review of Systems pt seen and examined at bedside is confused GCS 10 NG tube ordered IV clinimix 1 unit of PRBC upgraded to STELLA ROS could not be done Objective vital signs Vital Sign Date Time Temp Pulse Resp B/P (MAP) Pulse Ox O2 Delivery O2 Flow Rate FiO2 07/13/24 20:00 97.2 100 23 112/89 (97) 98 97.2 07/13/24 08:00 Room Air* 0 21 Total Intake and Output 07/12/24 07/12/24 07/13/24 15:00 23:00 07:00 Intake Total 1000 ml 1041 ml 1148 ml Output Total 950 ml 750 ml Balance 1000 ml 91 ml 398 ml medications Current Medications Medications Dose Ordered Sig/Sean Route Start Time Stop Time Status Last Admin Dose Admin Guaifenesin/ Dextromethorphan 10 ml Q4HP PRN PO 06/08/24 11:00 07/10/24 01:48 10 ML Morphine Sulfate 1 mg Q4HPRN PRN IV 06/16/24 14:00 07/11/24 18:09 1 MG Ondansetron HCl 4 mg Q4HP PRN IV 06/21/24 16:00 07/11/24 06:17 4 MG Nystatin 5 ml QID MT 06/27/24 12:00 07/13/24 18:18 5 ML Pantoprazole Sodium 40 mg DAILY@0600 PO 06/29/24 06:00 07/10/24 05:57 40 MG Ursodiol 300 mg BID PO 06/28/24 22:00 07/13/24 09:41 300 MG Morphine Sulfate 2 mg Q4HPRN PRN IV 06/29/24 16:45 Docusate Sodium 200 mg DAILYPRN PRN PO 07/02/24 14:30 Artificial Tears 1 drop Q6HP PRN EACHEYE 07/03/24 14:00 07/04/24 05:19 1 DROP Sodium Chloride 2 gm BID PO 07/04/24 14:15 07/13/24 09:41 2 GM Acetaminophen 650 mg Q6HP PRN PO 07/07/24 17:30 07/10/24 16:30 650 MG Linezolid 300 ml @ 150 mls/hr Q12HR IV 07/11/24 22:00 07/13/24 09:41 150 MLS/HR Metoclopramide HCl 5 mg Q8HPRN PRN IV 07/12/24 12:00 Cefepime HCl 50 ml @ 12.5 mls/hr Q24H IV 07/13/24 12:00 07/13/24 11:33 12.5 MLS/HR Amino Acids 0 ml @ 0 mls/hr PER PHARMACY IV 07/12/24 17:15 Diagnostic Test (Pha) 1 strip Q6HR 07/12/24 18:00 07/13/24 18:20 1 STRIP Insulin Human Regular FOLLOW SLIDING SCALE Q6HR SC 07/12/24 18:00 Dextrose 50 ml UD IV 07/12/24 17:45 Amino Acids/ Electrolytes/ Dextrose 1,000 ml @ 41 mls/hr DAILY@2200 IV 07/12/24 22:00 07/12/24 22:06 41 MLS/HR Levetiracetam 100 ml @ 400 mls/hr BID IV 07/12/24 22:00 07/13/24 09:41 400 MLS/HR Lorazepam 1 mg Q5MINP PRN IV 07/12/24 21:15 Sodium Chloride 1,000 ml @ 75 mls/hr [id number] IV 07/13/24 11:30 07/13/24 11:30 75 MLS/HR Azithromycin 250 ml @ 125 mls/hr DAILY@1800 IV 07/14/24 18:00 Rifampin 600 mg DAILY@2100 GT 07/13/24 21:00 Ethambutol HCl 800 mg MWF GT 07/13/24 21:00 Phenytoin Sodium 100 mg Q8HR IV 07/14/24 06:00 Examination Examination General Appearance: confused HEENT: EOMI Respiratory: Clear to auscultation, Normal air movement Cardiovascular: Regular rate, Normal S1, Normal S2 Abdominal: Normal bowel sounds Extremities: No cyanosis, No edema, Normal pulses, No tenderness/swelling Skin: No rashes, No breakdown Neuro: confused , hypertonic laboratory and microbiology Laboratory Tests 07/13/24 11:00 07/13/24 07:50 Test 07/13/24 07:50 Range/Units Serum Glucose 119 H 74-106 mg/dL Microbiology Date/Time Source Procedure Growth Status 07/11/24 20:09 Blood Blood Culture - Preliminary NO GROWTH AFTER 48 HOURS OF INCUBATION. Resulted 07/11/24 19:32 Other Pending Resulted 07/11/24 19:32 Other Pending Resulted 07/11/24 19:32 Other Pending Resulted 07/11/24 19:32 Other Pending Resulted 07/11/24 19:32 Other - Final See Separate Report... Resulted 07/11/24 19:32 Cerebral Spinal Fluid Gram Stain - Final Resulted 07/11/24 19:32 Cerebral Spinal Fluid CSF Culture & Gram Stain (Tube 2) M - Preliminary Resulted 07/11/24 14:54 Voided Urine Urine Culture - Preliminary Resulted 07/07/24 06:10 Sputum Gram Stain - Final Complete 07/07/24 06:10 Respiratory Culture - Final Staphylococcus aureus Complete 07/02/24 20:23 Stool Ova and Parasites - Final Complete 07/02/24 20:23 Stool - Final Complete Labs and/or images reviewed: Labs reviewed by me, Image(s) reviewed by me Problem List/Assessment/Plan Problem List/Assessment/Plan Assessment/plan Neurology #Metabolic encephalopathy due to sepsis/?meningitis -Head CT #?Seizure due to ?Meningitis -Head CT -ativan prn -IV kepra -neurology consult #?Meningitis -IV antibiotics as per ID -LP done Cardiology # shock likely due to septic shock -patient is off vasopressors since yesterday -started on IV fluids -IV fluids per Nephrology Respiratory # acute hypoxic respiratory 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 -currently on room air #Multifocal pneumonia, Pneumocystis Jerovoci or Carini Pneumonia ( opportunistic infection) -patient was initially on Bactrim was discontinued -infectious disease on board -IV antibiotics #Pulmonary nodule, 2 cm in size -seen on imaging GI #Transaminitis with elevated bilirubin ?cholangiopathy/medication induced -monitor Urology #UTI Enterococcus faecalis -ampicillin stopped by ID Endocrine #Left adrenal nodule -cortisol AM Hematology/Oncology # microcytic anemia, Severe, requiring blood transfusion -1 unit of PRBC Monitor # leukopenia with neutropenic fever ?likely due to sepsis -monitor Nephrology #VEL due to ?bacterim use -nephrology on board -IV fluids #Hyponatremia ?SIADH due to PCP pneumonia/bacterim use -monitor #hypokalemia -corrected #Hyperkalemia -corrected Infectious disease #oral candidiasis -nystatin swish and swallow #AIDS, CD4 count less than 10 -ID on board #Acid-fast bacilli culture positive ? Rule out tuberculosis/MAC infection -ID on board #Pneumocystis Jerovoci or Carini Pneumonia ( opportunistic infection) -ID on board Social Homosexual Lines peripheral IV Drips off norepi drip DVT prophylaxis SCD PUD prophylaxis not indicated nutrition will start enteral feeding Code status discussed with the pt >21min , FULL CODE Critical care time excluding procedures : 61 minutes pt upgraded to STELLA Case discussion with Dr Carmichael Plan discussed with: Other My Orders My Orders Orders - REGINE OCHOA RESIDENT Procedure Category Date Status Time Complete Blood Count LAB 07/14/24 Verified 04:00 Chest Portable XY 07/14/24 Logged 04:00 Dietary Evaluation Review Comments: 1. advance diet when medically feasible: Renal Sepcific 40g Protein restriction diet, supplement his protein needs with clinimix @ 41ml/hr (42.5 gPro 510 kcal) 2. TPN per pharmacy if NPO > 7 days Expected Outcomes/Goals: gradual wt gain, improved nutrition status. grdual healed wounds. REGINE OCHOA RESIDENT Jul 13, 2024 21:55
--- NOTE | 2024-07-13 22:53 | DVHEEG2 ---
Neurology EEG Procedural Note Procedural Note EXAM DATE: 07/13/2024 REFERRING DOCTOR: Dr. Chavez TECHNIQUE: Eighteen channels of EEG, 2 channels of EOG, and 1 channel of EKG were recorded using the International 10/20 system. CLINICAL DATA: The patient was referred for an EEG evaluation for the evidence of seizure disorder. MEDICATIONS: See the chart BACKGROUND ACTIVITY: The recreation showed high amplitude rhythmic 2-3 hertz sharp and wave complex symmetrically over both hemispheres ACTIVATION: Hyperventilation: Not done Photic Stimulation: Not done Sleep: Nonresponsiveness IMPRESSION: This is an abnormal EEG, this EEG showed evidence suggestive of electrographic seizure, please correlate clinically and consider appropriate treatment if a seizure disorder is suspected The EKG channel showed a regular heart rate of 90/min[place] [address] JEFFERY CHAVEZ MD Jul 13, 2024 22:53
--- NOTE | 2024-07-13 23:02 | DVHTSRES ---
Transfer Summary Transfer Summary Resident Creating Document: REGINE OCHOA RESIDENT Date of Admission Jun 08, 2024 at 05:13 Brief Hx & Hospital Course: A 28-year-old homosexual male patient; who was recently diagnosed with HIV, not on treatment; who presented with cough to [facility] and was transferred to [facility] for further evaluation and treatment with the initial history The patient has been having cough since February, which is sometimes getting worse and sometimes the same. The patient does bring up expectoration, it is mostly blood, but sometimes yellow. He had some fever intermittently, but does not have any fever currently. He denies any orthopnea or PND. He is mildly short of breath with exertion. He has lost about 3-4 pounds. He denies any orthopnea, PND, hemoptysis. Initial assessment and plan : #Productive cough due to bilateral pneumonia with the possibility of atypical infection including atypical tubercular mycobacterial fungal infections in the setting of recently diagnosed HIV; started on IV azithromycin and ceftriaxone; ordered and reviewed chest CT without IV contrast; ordered sputum culture; pulmonology is following; ID consulted; now on room air; to start oxygen therapy if indicated; continue monitoring #Recently diagnosed with HIV in the setting of homosexual male; ordered blood work; ID consulted; discussed using protection for sexual activities; continue monitoring #Normocytic anemia; unclear etiology; no signs/symptoms of active bleeding; continue monitoring #Elevated liver enzymes; mild; unclear etiology; avoid hepatotoxic agents; continue monitoring Infectious diseases was consulted. Antibiotics were started per ID recommendation. + Elevated D-dimer; Ct Angiogram was ordered, which reveled Respiratory motion artifact limits evaluation. 2. No central or lobar pulmonary embolism visualized. Can not exclude segmental or subsegmental pulmonary emboli due to extensive respiratory motion artifact. 3. Worsening ground-glass opacities and interstitial opacities bilaterally, may be infectious or inflammatory in nature or due to pulmonary edema. 4. No significant change in size in the 2 cm nodule/ mass in the superior segme nt of the right lower lobe compared to the recent exam. Additional nodule seen on the prior exam is not visualized, likely obscured by respiratory motion artifact. 5. Stable indeterminate left adrenal nodule. Nonemergent MRI adrenal mass protocol could be obtained to further characterize. 6. Stable nonspecific mildly prominent bilateral axillary lymph nodes, most likely reactive. Correlate with clinical findings. 7. Additional findings as detailed above. Rn Complex Care was consulted. Initial sputum culture was collected but later bronchial liver lavage sample was sent after bronchoscopy done on 06/12/2024. Patient had PCP pneumonia diagnosed on bronchiolar lavage sample smear and was started on Bactrim. Patient developed hyponatremia/VEL later after which Bactrim was discontinued as patient was planned to be started on primaquine but for that G6PD test was needed and were awaiting results. Imaging revealed bilateral multifocal pneumonia, and pulmonary nodule 2 cm in size. Imaging also revealed left adrenal nodule. Urine culture later revealed UTI with Enterococcus faecalis. Patient had microcytic anemia for which 1 unit of PRBC was transfused. Hypokalemia, hyperkalemia, was corrected. Patient had oral candidiasis for which in his statin swish and swallow was started patient was diagnosed with AIDS considering CD4 count was 89. Patient was upgraded to ICU for sepsis with septic shock requiring inotrope/vasopressors, which were later turned off. Patient was downgraded to telemetry. Patient had episode of seizures after which patient was started on IV Ativan p.r.n. and IV Keppra. Neurologist was consulted. Lumbar puncture was done, and CSF was sent for analysis. Patient was started on IV vancomycin, IV cefepime and IV Bactrim by Infectious Disease for sepsis and PCP, patient had worsening of the VEL after we initially vancomycin was discontinued by ID and later IV Bactrim was discontinued and patient was started on IV linezolid. Patient was upgraded to the STELLA. NG tube was connected for prevention for aspiration pneumonia. At the time of transfer, patient has GCS of 10-11, is currently altered, had EEG done, results are pending. CT chest/abd/pelvis revealed Tree-in-bud opacities bilateral lower lobes and left upper lobe which may represent infectious bronchiolitis. Redemonstration of 1.9 cm left lower lobe solid nodule. Mild wall thickening of the distal esophagus which may be due to inadequate distention/esophagitis. 1.2 cm left adrenal nodule. Rectal lipoma. Mild wall thickening of the rectum which may be due to inadequate distention with proctitis not excluded. Care will be transferred to the upcoming ICU resident team including Dr Mai, Dr Zamora and Dr Garcia. REGINE OCHOA RESIDENT Jul 13, 2024 23:02
[2024-07-14] VITALS (81 sets, daily range): BP systolic 85–120; BP diastolic 54–82; PULSE 81–117; RESP 13–29; TEMP 97.2–99; O2SAT 94–100
[2024-07-14] MEDS: LORazepam 2MG/ML-1ML VIAL IV PRN (02:40)
--- NOTE | 2024-07-14 05:28 | DVH ---
CHEST RADIOGRAPH Indication: seizures Technique: Single frontal view of the chest was obtained Comparison: XY CHEST XRAY 1 VIEW on DOS: 07/06/24, XY CHEST PORTABLE on DOS: 06/27/24, XY CHEST XRAY 1 VIEW on DOS: 06/25/24 IMPRESSION: Heart appears normal in size. The lungs appear clear without focal airspace opacity, effusion, or pn eumothorax. Enteric tube tip is in the region of the stomach.
[2024-07-14 05:43] LABS: Hematocrit 25.9 % (41.0-53.0); Hemoglobin 8.7 g/dL (13.5-17.5); Mean Corpuscular Hemoglobin 27.9 pg (28.0-32.0); Mean Corpuscular Hgb Conc. 33.7 g/dL (32.0-36.0); Mean Corpuscular Volume 82.6 fL (80.0-100.0); Platelet Count (auto) 327 10^3/uL (140-450); Red Blood Cells 3.13 10^6/uL (4.5-5.90); Red Cell Distribution Width 19.8 % (11.8-14.3); White Blood Cell 9.4 10^3/uL (4.4-10.8)
[2024-07-14 05:52] LABS: Basophils % (manual) 0 (0.0-2.0); Blast Cells 0; Myelocytes % 0; Promyelocytes % 0; Reactive Lymphocytes 0
[2024-07-14 06:00] LABS: Alanine Aminotransferase 37 U/L (7-40); Anion Gap 13 (5-15); BUN/Creatinine Ratio 17.1 (10.0-20.0); Glucose 103 mg/dL (74-106); Magnesium 1.8 mg/dL (1.6-2.6); Potassium 3.7 mmol/L (3.5-5.1); Sodium 138 mmol/L (136-145)
[2024-07-14 06:01] LABS: Blood Urea Nitrogen 75 mg/dL (9-23); Carbon Dioxide 15 mmol/L (20-31); Chloride 110 mmol/L (98-107); Phosphorus 4.2 mg/dL (2.4-5.1)
[2024-07-14 06:02] LABS: Albumin 2.8 g/dL (3.2-4.8); Alkaline Phosphatase 356 U/L (46-116); Aspartate Aminotransferase 55 U/L (13-40); Bilirubin, Total 2.4 mg/dL (0.2-1.0); Calcium 7.8 mg/dL (8.7-10.4); Total Protein 5.2 g/dL (5.7-8.2)
[2024-07-14] MEDS: PHENYTOIN SODIUM 50 MG/ML 2ML VIAL IV SCH (06:07)
[2024-07-14 06:34] LABS: Band Neutrophils % (manual) 11; Eosinophils % (manual) 2 (0-7); Lymphocytes % (manual) 6 (10.0-50.0); Metamyelocytes % 2; Monocytes % (manual) 4 (0-12); Platelet Estimate Adequate
--- NOTE | 2024-07-14 12:17 | DVHPN2 ---
Subjective Lethargic Reviewed: Care Plan, H&P, Labs, Medications, Previous Orders, Radiology, Other (Consultations) Changes from previous H/P or p: Changes Musculoskeletal: No leg pain Objective Vitals Vital Signs Date Time Temp Pulse Resp B/P (MAP) Pulse Ox O2 Delivery O2 Flow Rate FiO2 07/14/24 08:00 92 15 100 Room Air* 0 21 07/14/24 06:45 98.6 99/63 (75) 209.5 Intake/Output Intake and Output 07/14/24 07:00 Intake Total 4094.0 ml Output Total 1100 ml Balance 2994.0 ml Intake Oral 60 ml IV Total 4034.0 ml Output Urine Total 750 ml Gastric Drainage Total 350 ml # Bowel Movements 3 General Appearance: Other (Lethargic) HEENT: Atraumatic, Other (NGT in place) Lungs: Other (Decreased air entry bilateral with crackles ) Cardiovascular: Regular rate, Normal S1, Normal S2, No murmurs Abdomen: Normal bowel sounds, Soft Genitourinary: Other (Elliott's) Neuro: Sensation intact, Other (Lethargic) Skin: Dry, Intact Medications Current Medications Medications Dose Ordered Sig/Sean Route Start Time Stop Time Status Last Admin Dose Admin Guaifenesin/ Dextromethorphan 10 ml Q4HP PRN PO 06/08/24 11:00 07/10/24 01:48 10 ML Morphine Sulfate 1 mg Q4HPRN PRN IV 06/16/24 14:00 07/11/24 18:09 1 MG Ondansetron HCl 4 mg Q4HP PRN IV 06/21/24 16:00 07/11/24 06:17 4 MG Nystatin 5 ml QID MT 06/27/24 12:00 07/13/24 21:48 5 ML Pantoprazole Sodium 40 mg DAILY@0600 PO 06/29/24 06:00 07/10/24 05:57 40 MG Ursodiol 300 mg BID PO 06/28/24 22:00 07/14/24 09:34 300 MG Morphine Sulfate 2 mg Q4HPRN PRN IV 06/29/24 16:45 Docusate Sodium 200 mg DAILYPRN PRN PO 07/02/24 14:30 Artificial Tears 1 drop Q6HP PRN EACHEYE 07/03/24 14:00 07/04/24 05:19 1 DROP Sodium Chloride 2 gm BID PO 07/04/24 14:15 07/14/24 09:33 2 GM Acetaminophen 650 mg Q6HP PRN PO 07/07/24 17:30 07/10/24 16:30 650 MG Linezolid 300 ml @ 150 mls/hr Q12HR IV 07/11/24 22:00 07/14/24 09:33 150 MLS/HR Metoclopramide HCl 5 mg Q8HPRN PRN IV 07/12/24 12:00 Cefepime HCl 50 ml @ 12.5 mls/hr Q24H IV 07/13/24 12:00 07/13/24 11:33 12.5 MLS/HR Amino Acids 0 ml @ 0 mls/hr PER PHARMACY IV 07/12/24 17:15 Diagnostic Test (Pha) 1 strip Q6HR 07/12/24 18:00 07/14/24 06:00 1 STRIP Insulin Human Regular FOLLOW SLIDING SCALE Q6HR SC 07/12/24 18:00 07/13/24 23:55 2 UNITS Dextrose 50 ml UD IV 07/12/24 17:45 Amino Acids/ Electrolytes/ Dextrose 1,000 ml @ 41 mls/hr DAILY@2200 IV 07/12/24 22:00 07/13/24 21:51 41 MLS/HR Levetiracetam 100 ml @ 400 mls/hr BID IV 07/12/24 22:00 07/14/24 09:33 400 MLS/HR Lorazepam 1 mg Q5MINP PRN IV 07/12/24 21:15 07/14/24 02:40 1 MG Sodium Chloride 1,000 ml @ 75 mls/hr [id number] IV 07/13/24 11:30 07/14/24 00:36 75 MLS/HR Azithromycin 250 ml @ 125 mls/hr DAILY@1800 IV 07/14/24 18:00 Rifampin 600 mg DAILY@2100 GT 07/13/24 21:00 07/13/24 21:48 600 MG Ethambutol HCl 800 mg MWF GT 07/13/24 21:00 07/13/24 21:48 800 MG Phenytoin Sodium 100 mg Q8HR IV 07/14/24 06:00 07/14/24 06:07 100 MG Laboratory Results Laboratory Tests 07/14/24 05:00 Chemistry Test 07/14/24 05:00 Albumin 2.8 g/dL (3.2-4.8) L Calcium Level 7.8 mg/dL (8.7-10.4) L Magnesium Level 1.8 mg/dL (1.6-2.6) Phosphorus Level 4.2 mg/dL (2.4-5.1) Total Protein 5.2 g/dL (5.7-8.2) L LFT Test 07/14/24 05:00 Alanine Aminotransferase (ALT) 37 U/L (7-40) Alkaline Phosphatase 356 U/L (46-116) H Aspartate Amino Transferase (AST) 55 U/L (13-40) H Total Bilirubin 2.4 mg/dL (0.2-1.0) H Urinalysis Test 06/12/24 20:52 06/23/24 09:13 07/07/24 17:20 Urine Mucus Few (None Seen) Urine WBC 1 /hpf (0 - 3) Urine Color Dark-yellow (Yellow) Urine Clarity Clear (Clear) Urine pH 7.5 (5.0-9.0) Urine Specific [place] 1.020 (1.001-1.035) Urine Protein 1+ (Negative) H Urine Ketones Negative (Negative) Urine Blood Negative /uL (Negative) Urine Nitrite Negative (Negative) Urine Bilirubin 1+ (Negative) Urine Urobilinogen 2 mg/dL (Negative) H Urine Leukocyte Esterase Negative /uL (Negative) Urine RBC <1 /hpf (0 - 3) Urine Microscopic WBC 2 /HPF (0-3) Urine Squamous Epithelial Cells None seen /hpf (<5) Urine Bacteria None seen /hpf (None Seen) Urine Osmolality 440 mOsm/kg Urine Sodium 60 mmol/L (40-220) Urine Glucose Normal mg/dL (Normal) Microbiology Microbiology Date/Time Source Procedure Growth Status 07/13/24 07:50 Blood Blood Culture - Preliminary NO GROWTH AFTER 24 HOURS OF INCUBATION. Resulted 07/11/24 19:32 Other Pending Resulted 07/11/24 19:32 Other Pending Resulted 07/11/24 19:32 Other Pending Resulted 07/11/24 19:32 Other Pending Resulted 07/11/24 19:32 Other - Final See Separate Report... Resulted 07/11/24 19:32 Cerebral Spinal Fluid Gram Stain - Final Resulted 07/11/24 19:32 Cerebral Spinal Fluid CSF Culture & Gram Stain (Tube 2) M - Preliminary Resulted 07/11/24 14:54 Voided Urine Urine Culture - Final Complete 07/07/24 06:10 Sputum Gram Stain - Final Complete 07/07/24 06:10 Respiratory Culture - Final Staphylococcus aureus Complete 07/02/24 20:23 Stool Ova and Parasites - Final Complete 07/02/24 20:23 Stool - Final Complete Labs and/or images reviewed: Labs reviewed by me, Image(s) reviewed by me Assessment/Plan Assessment/Plan Covering Dr. Garcia: #Acute metabolic/toxic encephalopathy in the setting of witnessed seizure-like activity;altered mental status; status epilepticus as per neurology #AIDS #Sclerosing cholangitis associated with HIV disease #Severe sepsis due to UTI, and atypical pneumonia #Atypical pneumonia #Elevated liver enzymes #VEL likely acute tubular necrosis/VMN in the setting of hypotension/sepsis and nephrotoxicity from antibiotics as per nephrology #Hyponatremia due to recent Bactrim use as per nephrology #Hyperkalemia due to VEL but now with hypokalemia #Leukopenia due to AIDS Neurology, Pulmonology, Infectious Disease, Nephrology, and GI are following Continue broad-spectrum IV antibiotics Continue anti-seizures medications as per neurology Monitor electrolytes closely and replace/correct as needed as per nephrology Avoid hepato/nephrotoxic agents Reviewed available cultures, labs, and imaging studies including CXRs, and head CT Seizures precautions Droplet precations Continue close monitoring 99 minutes of critical care time. Late Entry. This medical document was created using an electronic medical record system with computerized dictation system. Although this document has been carefully reviewed, there might still be some phonetic and typographical errors. These areas are purely typographical due to imperfections of the software programs, and do not reflect any compromise in the patient's medical care. Plan discussed with: Other (Nurse) Date of Service: Jul 14, 2024 Billing Provider: MADY BAEZ MD Common Visit Codes: [id number] CARE 30-74 MIN (99 minutes), [id number] CARE-EACH +30MIN MADY BAEZ MD Jul 14, 2024 12:17
--- NOTE | 2024-07-14 15:36 | DVHPN2 ---
Progress Note Date Seen: Jul 14, 2024 Resident Creating Document: MING VALENTIN RESIDENT Has the PT tested + for MRSA If YES, has PT been informed?: Yes Medical Necessity Reason Pt with a Central, PICC or Fol: Yes Subjective Review of Systems Patient seen and examined at the bedside. Consider starting TPN, keep NPO. Objective vital signs Vital Sign Date Time Temp Pulse Resp B/P (MAP) Pulse Ox O2 Delivery O2 Flow Rate FiO2 07/14/24 08:00 92 15 100 Room Air* 0 21 07/14/24 06:45 98.6 99/63 (75) 209.5 Total Intake and Output 07/13/24 07/13/24 07/14/24 15:00 23:00 07:00 Intake Total 1828.0 ml 1308 ml 958 ml Output Total 1000 ml 100 ml Balance 1828.0 ml 308 ml 858 ml medications Current Medications Medications Dose Ordered Sig/Sean Route Start Time Stop Time Status Last Admin Dose Admin Guaifenesin/ Dextromethorphan 10 ml Q4HP PRN PO 06/08/24 11:00 07/10/24 01:48 10 ML Morphine Sulfate 1 mg Q4HPRN PRN IV 06/16/24 14:00 07/11/24 18:09 1 MG Ondansetron HCl 4 mg Q4HP PRN IV 06/21/24 16:00 07/11/24 06:17 4 MG Nystatin 5 ml QID MT 06/27/24 12:00 07/14/24 12:00 5 ML Pantoprazole Sodium 40 mg DAILY@0600 PO 06/29/24 06:00 07/10/24 05:57 40 MG Ursodiol 300 mg BID PO 06/28/24 22:00 07/14/24 09:34 300 MG Morphine Sulfate 2 mg Q4HPRN PRN IV 06/29/24 16:45 Docusate Sodium 200 mg DAILYPRN PRN PO 07/02/24 14:30 Artificial Tears 1 drop Q6HP PRN EACHEYE 07/03/24 14:00 07/04/24 05:19 1 DROP Sodium Chloride 2 gm BID PO 07/04/24 14:15 07/14/24 09:33 2 GM Acetaminophen 650 mg Q6HP PRN PO 07/07/24 17:30 07/10/24 16:30 650 MG Linezolid 300 ml @ 150 mls/hr Q12HR IV 07/11/24 22:00 07/14/24 09:33 150 MLS/HR Metoclopramide HCl 5 mg Q8HPRN PRN IV 07/12/24 12:00 Cefepime HCl 50 ml @ 12.5 mls/hr Q24H IV 07/13/24 12:00 07/14/24 12:00 12.5 MLS/HR Amino Acids 0 ml @ 0 mls/hr PER PHARMACY IV 07/12/24 17:15 Diagnostic Test (Pha) 1 strip Q6HR 07/12/24 18:00 07/14/24 12:00 1 STRIP Insulin Human Regular FOLLOW SLIDING SCALE Q6HR SC 07/12/24 18:00 07/13/24 23:55 2 UNITS Dextrose 50 ml UD IV 07/12/24 17:45 Amino Acids/ Electrolytes/ Dextrose 1,000 ml @ 41 mls/hr DAILY@2200 IV 07/12/24 22:00 07/13/24 21:51 41 MLS/HR Levetiracetam 100 ml @ 400 mls/hr BID IV 07/12/24 22:00 07/14/24 09:33 400 MLS/HR Lorazepam 1 mg Q5MINP PRN IV 07/12/24 21:15 07/14/24 02:40 1 MG Sodium Chloride 1,000 ml @ 75 mls/hr [id number] IV 07/13/24 11:30 07/14/24 14:37 75 MLS/HR Azithromycin 250 ml @ 125 mls/hr DAILY@1800 IV 07/14/24 18:00 Rifampin 600 mg DAILY@2100 GT 07/13/24 21:00 07/13/24 21:48 600 MG Ethambutol HCl 800 mg MWF GT 07/13/24 21:00 07/13/24 21:48 800 MG Phenytoin Sodium 100 mg Q8HR IV 07/14/24 06:00 07/14/24 14:00 100 MG Examination Patient lying in bed, not communicating, maintaining airway General: Febrile, palor, mucosae are moist Cardiovascular: Regular S1 and S2. No murmurs, gallops or rubs. No JVD elevation. No pedal edema Respiratory: Normal B/L air entry on room air. Clear lung sounds on auscultation Abdomen: Soft, nontender, nondistended, hyperactive bowel sounds, no rebound tenderness, no organomegaly, no masses Genitourinary: Deferred MSK/skin: Mobilizes 4 limbs. Skin is dry and warm Psych/Mental Status: A/Ox0 laboratory and microbiology Laboratory Tests 07/14/24 05:00 Test 07/14/24 05:00 Range/Units Serum Glucose 103 74-106 mg/dL Microbiology Date/Time Source Procedure Growth Status 07/13/24 11:38 Stool Clostridium difficile Toxin Assay - Final Complete 07/13/24 07:50 Blood Blood Culture - Preliminary NO GROWTH AFTER 24 HOURS OF INCUBATION. Resulted 07/12/24 20:25 Nose MRSA Screen - Final Complete 07/11/24 19:32 Cerebral Spinal Fluid Gram Stain - Final Resulted 07/11/24 19:32 Cerebral Spinal Fluid CSF Culture & Gram Stain (Tube 2) M - Preliminary Resulted 07/11/24 14:54 Voided Urine Urine Culture - Final Complete 07/07/24 06:10 Sputum Gram Stain - Final Complete 07/07/24 06:10 Respiratory Culture - Final Staphylococcus aureus Complete Labs and/or images reviewed: Labs reviewed by me, Image(s) reviewed by me Problem List/Assessment/Plan Problem List/Assessment/Plan Altered mental status ? Seizure - active Transaminitis secondary to HIV versus medication induced, negative hepatitis panel, MRCP negative ? Elevated lipase secondary to pancreatitis ? 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 no filling defects. Plan: Recommend transferring to higher level of care Negative C diff, no WBC in stool. LFTs trending down. Recommended starting TPN, elevated lipase could be secondary to pancreatitis. Follow up on EEG Patient is started on cefepime and linezolid by ID, vanco was DC given worsening creatinine. Bactrim also the seed given worsening creatinine. Pending AFB culture Consider stool studies for Cryptosporidium and isospora Continue supportive care Pantoprazole 40 mg daily LFTs trending down Patient will be started on to Biktarvy as an outpatient Avoid NSAIDs Plan discussed with patient in which all questions have been answered Case discussed with Dr. Robins Plan discussed with: Patient Dietary Evaluation Review Comments: 1. advance diet when medically feasible: Renal Sepcific 40g Protein restriction diet, supplement his protein needs with clinimix @ 41ml/hr (42.5 gPro 510 kcal) 2. TPN per pharmacy if NPO > 7 days Expected Outcomes/Goals: gradual wt gain, improved nutrition status. grdual healed wounds. MING VALENTIN RESIDENT Jul 14, 2024 15:36
--- NOTE | 2024-07-14 17:31 | DVHPN2 ---
Progress Note Date Seen: Jul 14, 2024 Has the PT tested + for MRSA If YES, has PT been informed?: Yes Medical Necessity Reason Pt with a Central, PICC or Fol: Yes Subjective Patient reports: Other Review of Systems: Deferred Objective vital signs Vital Sign Date Time Temp Pulse Resp B/P (MAP) Pulse Ox O2 Delivery O2 Flow Rate FiO2 07/14/24 15:45 98.1 93 14 106/68 (81) 99 208.6 07/14/24 08:00 Room Air* 0 21 Total Intake and Output 07/13/24 07/13/24 07/14/24 15:00 23:00 07:00 Intake Total 1828.0 ml 1308 ml 958 ml Output Total 1000 ml 100 ml Balance 1828.0 ml 308 ml 858 ml medications Current Medications Medications Dose Ordered Sig/Sean Route Start Time Stop Time Status Last Admin Dose Admin Guaifenesin/ Dextromethorphan 10 ml Q4HP PRN PO 06/08/24 11:00 07/10/24 01:48 10 ML Morphine Sulfate 1 mg Q4HPRN PRN IV 06/16/24 14:00 07/11/24 18:09 1 MG Ondansetron HCl 4 mg Q4HP PRN IV 06/21/24 16:00 07/11/24 06:17 4 MG Nystatin 5 ml QID MT 06/27/24 12:00 07/14/24 12:00 5 ML Pantoprazole Sodium 40 mg DAILY@0600 PO 06/29/24 06:00 07/10/24 05:57 40 MG Ursodiol 300 mg BID PO 06/28/24 22:00 07/14/24 09:34 300 MG Morphine Sulfate 2 mg Q4HPRN PRN IV 06/29/24 16:45 Docusate Sodium 200 mg DAILYPRN PRN PO 07/02/24 14:30 Artificial Tears 1 drop Q6HP PRN EACHEYE 07/03/24 14:00 07/04/24 05:19 1 DROP Sodium Chloride 2 gm BID PO 07/04/24 14:15 07/14/24 09:33 2 GM Acetaminophen 650 mg Q6HP PRN PO 07/07/24 17:30 07/10/24 16:30 650 MG Linezolid 300 ml @ 150 mls/hr Q12HR IV 07/11/24:00 07/14/24 09:33 150 MLS/HR Metoclopramide HCl 5 mg Q8HPRN PRN IV 07/12/24 12:00 Cefepime HCl 50 ml @ 12.5 mls/hr Q24H IV 07/13/24 12:00 07/14/24 12:00 12.5 MLS/HR Amino Acids 0 ml @ 0 mls/hr PER PHARMACY IV 07/12/24 17:15 Diagnostic Test (Pha) 1 strip Q6HR 07/12/24 18:00 07/14/24 12:00 1 STRIP Insulin Human Regular FOLLOW SLIDING SCALE Q6HR SC 07/12/24 18:00 07/13/24 23:55 2 UNITS Dextrose 50 ml UD IV 07/12/24 17:45 Amino Acids/ Electrolytes/ Dextrose 1,000 ml @ 41 mls/hr DAILY@2200 IV 07/12/24 22:00 07/13/24 21:51 41 MLS/HR Levetiracetam 100 ml @ 400 mls/hr BID IV 07/12/24 22:00 07/14/24 09:33 400 MLS/HR Lorazepam 1 mg Q5MINP PRN IV 07/12/24 21:15 07/14/24 16:23 1 MG Sodium Chloride 1,000 ml @ 75 mls/hr [id number] IV 07/13/24 11:30 07/14/24 14:37 75 MLS/HR Azithromycin 250 ml @ 125 mls/hr DAILY@1800 IV 07/14/24 18:00 Rifampin 600 mg DAILY@2100 GT 07/13/24 21:00 07/13/24 21:48 600 MG Ethambutol HCl 800 mg MWF GT 07/13/24 21:00 07/13/24 21:48 800 MG Phenytoin Sodium 100 mg Q8HR IV 07/14/24 06:00 07/14/24 14:00 100 MG Examination: GENERAL:Abnormal, LUNGS:Abnormal, NEURO:Abnormal laboratory and microbiology Laboratory Tests 07/14/24 05:00 Test 07/14/24 05:00 Range/Units Serum Glucose 103 74-106 mg/dL Microbiology Date/Time Source Procedure Growth Status 07/13/24 11:38 Stool Clostridium difficile Toxin Assay - Final Complete 07/13/24 07:50 Blood Blood Culture - Preliminary NO GROWTH AFTER 24 HOURS OF INCUBATION. Resulted 07/12/24 20:25 Nose MRSA Screen - Final Complete 07/11/24 19:32 Cerebral Spinal Fluid Gram Stain - Final Resulted 07/11/24 19:32 Cerebral Spinal Fluid CSF Culture & Gram Stain (Tube 2) M - Preliminary Resulted 07/11/24 14:54 Voided Urine Urine Culture - Final Complete 07/07/24 06:10 Sputum Gram Stain - Final Complete 07/07/24 06:10 Respiratory Culture - Final Staphylococcus aureus Complete Problem List/Assessment/Plan Problem List/Assessment/Plan VEL likely acute tubular necrosis in the setting of hypotension/sepsis +nephrotoxicity from Abx hyponatremia sec to Bactrim use recently hyperkalemia AIDS PCP PNA leukopenia Recommendations NS iv as ordered //lasix iv 1 dose maintain map>65, vasopressors as needed chua kidney US noted ,,strict i and o events noted consideration for dialysis should renal function continues to deteriorate Discussed in detail with uncle bedside Plan discussed with: Other My Orders My Orders Orders - BAILEE WATTERS MD Procedure Category Date Status Time Furosemide Injection PHA 07/14/24 Transmitted (Lasix Injection) 17:30 Dietary Evaluation Review Comments: 1. advance diet when medically feasible: Renal Sepcific 40g Protein restriction diet, supplement his protein needs with clinimix @ 41ml/hr (42.5 gPro 510 kcal) 2. TPN per pharmacy if NPO > 7 days Expected Outcomes/Goals: gradual wt gain, improved nutrition status. grdual healed wounds. BAILEE WATTERS MD Jul 14, 2024 17:31
[2024-07-14] MEDS: SODIUM CHLORIDE 0.9% 1,000 ML IV SCH (18:11)
[2024-07-14] MEDS: AZITHROMYCIN 500MG/ 250ML 250 ML IV SCH (18:26)
[2024-07-14] MEDS: FUROSEMIDE 40 MG/4 ML VIAL IV ONE (18:26)
--- NOTE | 2024-07-14 20:24 | DVHPN2 ---
Progress Note - Dictate Date Seen: Jul 14, 2024 Has the PT tested + for MRSA If YES, has PT been informed?: Yes Medical Necessity Reason Pt with a Central, PICC or Fol: Yes Subjective PATIENT DOES NOT WANT ANY INFORMATION SHARED 07/13/24 Re-Assessment Re: HIGINIO HUANG spoke with patient uncle Blaine ([phone]) in regards to patients wishes when he was a/ox4. Per patient he did not want any family to be provided with any medical information. Since patient is unable to make any medical decisions at that moment, who will make any medical decisions would have to be determined. Tiger Machine Operator will be consulted. Per patients Uncle patient has no Next of Kin, last remaining member of his immediate family. Mr. Moss is a 28 years old gentleman with a history of HIV/aids, he was transferred from the [facility] on 06/08/2024 for further evaluation treatment. On 07/11/24, he had seizure-like activity however his nurse and medical staff did not witnessed symptoms. I have seen and examined the patient, I have discussed with his daytime and shift lab technician nurses and the medical staff, eyes are closed, respond to painful stimuli, I do not see muscle twitching or other symptoms suggestive of seizure. Eyes are in neutral position Phenytoin, 07/14/2019 5:15.7 (Alb: 2.8) CSF, 07/11/2024: RBC: Five, protein: 46 found eight, glucose: 49 UDS, 06/26/2024: Opiates Plasma alcohol, 06/25/2024: Normal Urinalysis, 07/17/2024: WBC: Negative, urine leukocyte esterase: Negative WBC/HB/PLT/MCV, 07/12/2024: 4.4/6.4/331/78 0.1 PT/INR/PTT, 06/15/2024: 0.2/35/29/112, 06/12/2024: 11.1/1.06/29.3 Na, 06/08/2024: 136, 06/15/24:129, 06/20/24: 122, 06/24/2024: 117, 06/25 06/30: 121, 07/03/2024: 120, 07/06/2024: 123, 07/12/24: 132 BUN/CR, 07/02/2024: 15/0.49 07/12/2024: 68/4.30 TBI/AST/ALT/AP, 06/24/2024: 4.10/2515/1321/482, 07/02/2024: 9.8/71/196/710, 07/12/2024: 3.2/79/50/395 EEG, 07/13/2024: Electrographic status epileptics CT head, 07/11/2024: No acute intracranial process. MRI head, 07/06/2024: No acute cardiopulmonary disease. vital signs Vital Sign Date Time Temp Pulse Resp B/P (MAP) Pulse Ox O2 Delivery O2 Flow Rate FiO2 07/14/24 20:00 97.2 113 22 120/82 (95) 99 207.0 07/14/24 08:00 Room Air* 0 21 Total Intake and Output 07/13/24 07/13/24 07/14/24 15:00 23:00 07:00 Intake Total 1828.0 ml 1308 ml 958 ml Output Total 1000 ml 100 ml Balance 1828.0 ml 308 ml 858 ml medications Current Medications Medications Dose Ordered Sig/Sean Route Start Time Stop Time Status Last Admin Dose Admin Guaifenesin/ Dextromethorphan 10 ml Q4HP PRN PO 06/08/24 11:00 07/10/24 01:48 10 ML Morphine Sulfate 1 mg Q4HPRN PRN IV 06/16/24 14:00 07/11/24 18:09 1 MG Ondansetron HCl 4 mg Q4HP PRN IV 06/21/24 16:00 07/11/24 06:17 4 MG Nystatin 5 ml QID MT 06/27/24 12:00 07/14/24 12:00 5 ML Pantoprazole Sodium 40 mg DAILY@0600 PO 06/29/24 06:00 07/10/24 05:57 40 MG Ursodiol 300 mg BID PO 06/28/24 22:00 07/14/24 09:34 300 MG Morphine Sulfate 2 mg Q4HPRN PRN IV 06/29/24 16:45 Docusate Sodium 200 mg DAILYPRN PRN PO 07/02/24 14:30 Artificial Tears 1 drop Q6HP PRN EACHEYE 07/03/24 14:00 07/04/24 05:19 1 DROP Acetaminophen 650 mg Q6HP PRN PO 07/07/24 17:30 07/10/24 16:30 650 MG Linezolid 300 ml @ 150 mls/hr Q12HR IV 07/11/24 22:00 07/14/24 09:33 150 MLS/HR Metoclopramide HCl 5 mg Q8HPRN PRN IV 07/12/24 12:00 Cefepime HCl 50 ml @ 12.5 mls/hr Q24H IV 07/13/24 12:00 07/14/24 12:00 12.5 MLS/HR Amino Acids 0 ml @ 0 mls/hr PER PHARMACY IV 07/12/24 17:15 Diagnostic Test (Pha) 1 strip Q6HR 07/12/24 18:00 07/14/24 18:12 1 STRIP Insulin Human Regular FOLLOW SLIDING SCALE Q6HR SC 07/12/24 18:00 07/13/24 23:55 2 UNITS Dextrose 50 ml UD IV 07/12/24 17:45 Amino Acids/ Electrolytes/ Dextrose 1,000 ml @ 41 mls/hr DAILY@2200 IV 07/12/24 22:00 07/13/24 21:51 41 MLS/HR Levetiracetam 100 ml @ 400 mls/hr BID IV 07/12/24 22:00 07/14/24 09:33 400 MLS/HR Lorazepam 1 mg Q5MINP PRN IV 07/12/24 21:15 07/14/24 16:23 1 MG Azithromycin 250 ml @ 125 mls/hr DAILY@1800 IV 07/14/24 18:00 07/14/24 18:26 125 MLS/HR Rifampin 600 mg DAILY@2100 GT 07/13/24 21:00 07/13/24 21:48 600 MG Ethambutol HCl 800 mg MWF GT 07/13/24 21:00 07/13/24 21:48 800 MG Phenytoin Sodium 100 mg Q8HR IV 07/14/24 06:00 07/14/24 14:00 100 MG Sodium Chloride 1,000 ml @ 50 mls/hr Q20H IV 07/14/24 17:45 07/14/24 18:11 50 MLS/HR objective General: the patient is well developed and nourished. No acute distress. MENTAL STATUS: Subjective SPEECH, LANGUAGE, HIGHER CORTICAL FUNCTION: Deferred CRANIAL NERVES: Pupils are equal, round and reactive. Eyes deviated to deviated to left side Facial muscles symmetrical and strength intact. SENSATION: Possibly responsive to painful stimuli MOTOR: Normal tone in the upper and lower extremity. No spontaneous movement noticed REFLEXES: Deep tendon reflexes are symmetrical. No pathological reflexes. CEREBELLAR/COORDINATION: Deferred GAIT/STATION: deferred laboratory and microbiology Laboratory Tests 07/14/24 05:00 Test 07/14/24 05:00 Range/Units Serum Glucose 103 74-106 mg/dL Problem List Witnessed seizure-like activity Altered mental status Status epilepticus Metabolic encephalopathy Aids Anemia Leukopenia Kidney failure Elevated liver function tests Hyponatremia Assessment/Plan Monitoring Supportive treatment STELLA care Aerosol isolation Oxygen Respiratory support p.r.n. Stabilize vitals p.r.n. IV antibiotics Dilantin 100 mg IV Q 8 hours Keppra 1000 mg b.i.d. Ativan for seizure breakthrough More recommendation per clinical course This medical document was created using an electronic medical record system with [employer] dictation system. Although this document has been carefully reviewed, there may still be some phonetic and typographical errors. These areas are purely typographical due to imperfections of the software programs, and do not reflect any compromise in the patient's medical care Prognosis Guarded Dietary Evaluation Review Comments: 1. advance diet when medically feasible: Renal Sepcific 40g Protein restriction diet, supplement his protein needs with clinimix @ 41ml/hr (42.5 gPro 510 kcal) 2. TPN per pharmacy if NPO > 7 days Expected Outcomes/Goals: gradual wt gain, improved nutrition status. grdual healed wounds. Plan discussed with: Other Critical Care Time(min): 40 JEFFERY CHAVEZ MD Jul 14, 2024 20:24
--- NOTE | 2024-07-14 22:55 | DVHEEG2 ---
Neurology EEG Procedural Note Procedural Note EXAM DATE: 07/14/2024 REFERRING DOCTOR: Dr. Chavez TECHNIQUE: Eighteen channels of EEG, 2 channels of EOG, and 1 channel of EKG were recorded using the International 10/20 system. CLINICAL DATA: The patient was referred for an EEG evaluation for the evidence of seizure disorder. MEDICATIONS: See the chart BACKGROUND ACTIVITY: This record showed diffuse low to medium voltage polymorphic delta and theta activity over both hemispheres, that was reactive to external stimuli, intermixed with this was frequent medium voltage sharp waves, slow sharp waves, she was wave complexes over both hemispheres, ACTIVATION: Hyperventilation: Not done Photic Stimulation: Not done Sleep: Nonresponsiveness IMPRESSION: This is an abnormal EEG, this EEG showed evidence suggestive of epileptiform discharges from bilateral hemispheres, please correlate clinically Compared to EEG obtained on 07/13/2024, this EEG shows no evidence of electrographic seizure The EKG channel showed a regular heart rate of 102/min. [place] [address] JEFFERY CHAVEZ MD Jul 14, 2024 22:55
[2024-07-14 23:06] LABS: HSV-1 DNA CSF Negative (Negative); HSV-2 DNA Negative (Negative)
--- NOTE | 2024-07-14 23:14 | DVHPN2 ---
Progress Note - Dictate Date Seen: Jul 14, 2024 Has the PT tested + for MRSA If YES, has PT been informed?: Yes Medical Necessity Reason Pt with a Central, PICC or Fol: Yes The following are medically ne: Chua Catheter Reason for chua catheter: Strict I&O Subjective Patient seen and examined at bedside. On room air Overnight events reviewed. vital signs Vital Sign Date Time Temp Pulse Resp B/P (MAP) Pulse Ox O2 Delivery O2 Flow Rate FiO2 07/14/24 22:00 90 07/14/24 22:00 97.2 16 107/72 (84) 100 207.0 07/14/24 20:00 Room Air* 0 21 Total Intake and Output 07/13/24 07/13/24 07/14/24 15:00 23:00 07:00 Intake Total 1828.0 ml 1308 ml 958 ml Output Total 1000 ml 100 ml Balance 1828.0 ml 308 ml 858 ml medications Current Medications Medications Dose Ordered Sig/Sean Route Start Time Stop Time Status Last Admin Dose Admin Guaifenesin/ Dextromethorphan 10 ml Q4HP PRN PO 06/08/24 11:00 07/10/24 01:48 10 ML Morphine Sulfate 1 mg Q4HPRN PRN IV 06/16/24 14:00 07/11/24 18:09 1 MG Ondansetron HCl 4 mg Q4HP PRN IV 06/21/24 16:00 07/11/24 06:17 4 MG Nystatin 5 ml QID MT 06/27/24 12:00 07/14/24 12:00 5 ML Pantoprazole Sodium 40 mg DAILY@0600 PO 06/29/24 06:00 07/10/24 05:57 40 MG Ursodiol 300 mg BID PO 06/28/24 22:00 07/14/24 21:23 300 MG Morphine Sulfate 2 mg Q4HPRN PRN IV 06/29/24 16:45 Docusate Sodium 200 mg DAILYPRN PRN PO 07/02/24 14:30 Artificial Tears 1 drop Q6HP PRN EACHEYE 07/03/24 14:00 07/04/24 05:19 1 DROP Acetaminophen 650 mg Q6HP PRN PO 07/07/24 17:30 07/10/24 16:30 650 MG Linezolid 300 ml @ 150 mls/hr Q12HR IV 07/11/24 22:00 07/14/24 21:24 150 MLS/HR Metoclopramide HCl 5 mg Q8HPRN PRN IV 07/12/24 12:00 Cefepime HCl 50 ml @ 12.5 mls/hr Q24H IV 07/13/24 12:00 07/14/24 12:00 12.5 MLS/HR Amino Acids 0 ml @ 0 mls/hr PER PHARMACY IV 07/12/24 17:15 Diagnostic Test (Pha) 1 strip Q6HR 07/12/24 18:00 07/14/24 18:12 1 STRIP Insulin Human Regular FOLLOW SLIDING SCALE Q6HR SC 07/12/24 18:00 07/13/24 23:55 2 UNITS Dextrose 50 ml UD IV 07/12/24 17:45 Amino Acids/ Electrolytes/ Dextrose 1,000 ml @ 41 mls/hr DAILY@2200 IV 07/12/24 22:00 07/14/24 21:24 41 MLS/HR Levetiracetam 100 ml @ 400 mls/hr BID IV 07/12/24 22:00 07/14/24 21:24 400 MLS/HR Lorazepam 1 mg Q5MINP PRN IV 07/12/24 21:15 07/14/24 16:23 1 MG Azithromycin 250 ml @ 125 mls/hr DAILY@1800 IV 07/14/24 18:00 07/14/24 18:26 125 MLS/HR Rifampin 600 mg DAILY@2100 GT 07/13/24 21:00 07/14/24 21:22 600 MG Ethambutol HCl 800 mg MWF GT 07/13/24 21:00 07/13/24 21:48 800 MG Phenytoin Sodium 100 mg Q8HR IV 07/14/24 06:00 07/14/24 21:24 100 MG Sodium Chloride 1,000 ml @ 50 mls/hr Q20H IV 07/14/24 17:45 07/14/24 18:11 50 MLS/HR objective Gen.: Patient lying in bed in no apparent distress. On room air Head: Normocephalic, atraumatic. Eyes: EOMI/PERRLA. Ears: Normal hearing. Normal anatomy. Neck/trachea: Trachea midline, supple. Nose: Normal external anatomy. Mouth: Moist mucous membranes. Chest: Decreased air entry bilaterally. No wheezing or rhonchi. Cardiovascular: Positive S1, positive S2. Regular rate and rhythm. Abdomen: Positive bowel sounds in all 4 quadrants. Soft, non-tender, non- distended. : Deferred. Rectal: Deferred. Skin: Warm, dry. Intact. Extremities: 2+ radial pulses bilaterally. No lower extremity edema. Neuro: Awake, alert, oriented x3. No gross motor or sensory deficits. Cranial nerves II through XII intact. Gait not assessed. laboratory and microbiology Laboratory Tests 07/14/24 05:00 Test 07/14/24 05:00 Range/Units Serum Glucose 103 74-106 mg/dL Assessment/Plan Impression: Cough HIV (recent diagnosis) Anemia Elevated LFTs Atypical pneumonia SIADH Events: Remains on room air Supplemental oxygen PRN Patient is altered Obtain EEG Patient had a seizure on 07/11/24. IV fluids with NS at 75 ml/hr. Clinimix for nutritional support Follow up Neurology recs. Continue antibiotics Incentive spirometry On neutropenic precautions. ID recommendations appreciated Continue antifungal Nystatin suspension On ursodiol Monitor WBC. Monitor renal function Continue to monitor electrolytes closely - supplement as necessary Nephrology recommendations appreciated GI recs appreciated. DVT prophylaxis w/ Lovenox Disposition per hospitalist Labs reviewed. Rest of plan as noted below Plan: On room air Supplemental oxygen PRN Titrate to keep O2 sats above 92%. 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 TB negative ID recommendations appreciated. Monitor renal function. Monitor electrolytes. Supplement as necessary. Monitor ins and outs. DVT prophylaxis. Prognosis: Guarded given patient's multiple co-morbidities. Condition: Critical Rest of plan per hospitalist and other consultants. A total of 35 minutes of critical care time was spent reviewing the patient record, examining the patient, making a diagnostic and therapeutic plan, discussing this plan with the medical personnel, following up on diagnostic studies and following the patient for clinical stability excluding any and all procedures. At least 50% of this time was spent in direct, [id number] contact. Thank you Dr. Cruz, for allowing me to participate in this patient's care. Further recommendations will depend on the patient's clinical course. Please do not hesitate to contact me if you have any questions or concerns. This medical document was created using an electronic medical record system with [employer] dictation system. Although these documentations are being carefully reviewed, there may still be some phonetic and typographical changes. The errors are purely typographical, due to imperfection on the software program, and do not reflect any compromise in the patient's medical care. Dietary Evaluation Review Comments: 1. advance diet when medically feasible: Renal Sepcific 40g Protein restriction diet, supplement his protein needs with clinimix @ 41ml/hr (42.5 gPro 510 kcal) 2. TPN per pharmacy if NPO > 7 days Expected Outcomes/Goals: gradual wt gain, improved nutrition status. grdual healed wounds. Plan discussed with: Other (AALIYAH Ovalles) Critical Care Time(min): 35 ANGELIC OTOOLE MD Jul 14, 2024 23:14
[2024-07-15] VITALS (42 sets, daily range): BP systolic 97–121; BP diastolic 67–85; PULSE 88–124; RESP 11–24; TEMP 96.6–98.1; O2SAT 98–100
[2024-07-15 05:55] LABS: Hematocrit 26.1 % (41.0-53.0); Hemoglobin 8.9 g/dL (13.5-17.5); Mean Corpuscular Hgb Conc. 34.2 g/dL (32.0-36.0); Platelet Count (auto) 347 10^3/uL (140-450); Red Blood Cells 3.18 10^6/uL (4.5-5.90); Red Cell Distribution Width 20.1 % (11.8-14.3); White Blood Cell 9.4 10^3/uL (4.4-10.8)
[2024-07-15 06:09] LABS: Basophils % (manual) 0 (0.0-2.0); Blast Cells 0; Metamyelocytes % 0; Myelocytes % 0; Promyelocytes % 0; Reactive Lymphocytes 0
[2024-07-15 06:13] LABS: Alanine Aminotransferase 27 U/L (7-40); Anion Gap 14 (5-15); BUN/Creatinine Ratio 16.2 (10.0-20.0); Glucose 102 mg/dL (74-106); Sodium 136 mmol/L (136-145)
[2024-07-15 06:15] LABS: Albumin 2.9 g/dL (3.2-4.8); Alkaline Phosphatase 301 U/L (46-116); Aspartate Aminotransferase 40 U/L (13-40); Bilirubin, Total 2.1 mg/dL (0.2-1.0); Blood Urea Nitrogen 72 mg/dL (9-23); Calcium 8.3 mg/dL (8.7-10.4); Carbon Dioxide 12 mmol/L (20-31); Chloride 110 mmol/L (98-107); Potassium 2.8 mmol/L (3.5-5.1); Total Protein 5.6 g/dL (5.7-8.2)
[2024-07-15 06:46] LABS: Band Neutrophils % (manual) 13; Eosinophils % (manual) 1 (0-7); Lymphocytes % (manual) 14 (10.0-50.0); Monocytes % (manual) 3 (0-12); Platelet Estimate Adequate
[2024-07-15] MEDS: POTASSIUM CHL 20MEQ/100ML 100 ML IV SCH (09:00)
[2024-07-15] MEDS: MAGNESIUM SULFATE 1GM/100ML 100 ML IV SCH (11:45)
--- NOTE | 2024-07-15 12:47 | DVH ---
EXAM: CT HEAD WITHOUT CONTRAST INDICATION: CHANGE IN MENTAL STATUS TECHNIQUE: CT of the head without intravenous contrast. Coronal and sagittal reformatted images are submitted. Radiation Dose : 1. Head: CT Dose: CTDI volume is 53.79 mGy. Dose-length product is 971.75 mGy*cm The dose indicators for CT are the volume Computed Tomography (CT) Dose Index (CTDIvol) and the Dose Length Product (DLP), and are measured in units of mGy and mGy-cm, respectively. These indicators are not patient dose, but values generated from the CT scanner acquisition factors. The report includes radiation exposure data for exposures received during this examination. All CT scans at this medical facility are performed using dose modulation techniques as appropriate to a performed exam including the following: Automated exposure control was utilized; adjustment of the MA and/or KV according to patient size; and use of iterative reconstruction technique. COMPARISON: CT HEAD WITHOUT CONTRAST on DOS: 07/11/24, CT CHEST WITHOUT CONTRAST on DOS: 06/08/24 FINDINGS: There is no evidence of acute intracranial hemorrhage, extra-axial collection, mass effect, midline s hift, herniation or hydrocephalus. The ventricles, sulci and cisterns are age appropriate. The larson-white differentiation is intact. The visualized paranasal sinuses and mastoid air cells are clear. No depressed calvarial fracture. Left parieto-occipitalscalp dressing. IMPRESSION: 1. No evidence of acute intracranial abnormality.
[2024-07-15] MEDS: POTASSIUM CHL 20MEQ/100ML 100 ML IV ONE (18:00)
[2024-07-15] MEDS: FUROSEMIDE 40 MG/4 ML VIAL IV ONE (18:00)
[2024-07-15] MEDS ORDERED: SODIUM BICARB 50mEq/50ml Vial 150 ML in D5W 5% 1,000 ML IV SCH (18:30)
--- NOTE | 2024-07-15 18:39 | DVHPN2 ---
Progress Note Date Seen: Jul 15, 2024 Has the PT tested + for MRSA If YES, has PT been informed?: Yes Medical Necessity Reason Pt with a Central, PICC or Fol: Yes The following are medically ne: Chua Catheter Reason for chua catheter: Strict I&O Subjective Patient reports: Other (altered) Review of Systems: Deferred Objective vital signs Vital Sign Date Time Temp Pulse Resp B/P (MAP) Pulse Ox O2 Delivery O2 Flow Rate FiO2 07/15/24 18:30 97.0 122 22 119/75 (90) 99 206.6 07/15/24 08:00 Room Air* 0 21 Total Intake and Output 07/14/24 07/14/24 07/15/24 15:00 23:00 07:00 Intake Total 1249.5 ml 1195.5 ml 1088 ml Output Total 450 ml 1625 ml Balance 1249.5 ml 745.5 ml -537 ml medications Current Medications Medications Dose Ordered Sig/Sean Route Start Time Stop Time Status Last Admin Dose Admin Guaifenesin/ Dextromethorphan 10 ml Q4HP PRN PO 06/08/24 11:00 07/10/24 01:48 10 ML Morphine Sulfate 1 mg Q4HPRN PRN IV 06/16/24 14:00 07/11/24 18:09 1 MG Ondansetron HCl 4 mg Q4HP PRN IV 06/21/24 16:00 07/11/24 06:17 4 MG Nystatin 5 ml QID MT 06/27/24 12:00 07/15/24 17:39 5 ML Pantoprazole Sodium 40 mg DAILY@0600 PO 06/29/24 06:00 07/15/24 06:01 40 MG Ursodiol 300 mg BID PO 06/28/24 22:00 07/15/24 09:00 300 MG Morphine Sulfate 2 mg Q4HPRN PRN IV 06/29/24 16:45 Docusate Sodium 200 mg DAILYPRN PRN PO 07/02/24 14:30 Artificial Tears 1 drop Q6HP PRN EACHEYE 07/03/24 14:00 07/04/24 05:19 1 DROP Acetaminophen 650 mg Q6HP PRN PO 07/07/24 17:30 07/10/24 16:30 650 MG Linezolid 300 ml @ 150 mls/hr Q12HR IV 07/11/24 22:00 07/15/24 09:30 150 MLS/HR Metoclopramide HCl 5 mg Q8HPRN PRN IV 07/12/24 12:00 Cefepime HCl 50 ml @ 12.5 mls/hr Q24H IV 07/13/24 12:00 07/15/24 12:00 12.5 MLS/HR Diagnostic Test (Pha) 1 strip Q6HR 07/12/24 18:00 07/15/24 17:38 1 STRIP Insulin Human Regular FOLLOW SLIDING SCALE Q6HR SC 07/12/24 18:00 07/15/24 17:39 2 UNITS Dextrose 50 ml UD IV 07/12/24 17:45 Amino Acids/ Electrolytes/ Dextrose 1,000 ml @ 41 mls/hr DAILY@2200 IV 07/12/24 22:00 07/15/24 21:59 07/14/24 21:24 41 MLS/HR Levetiracetam 100 ml @ 400 mls/hr BID IV 07/12/24 22:00 07/15/24 09:00 400 MLS/HR Lorazepam 1 mg Q5MINP PRN IV 07/12/24 21:15 07/14/24 16:23 1 MG Azithromycin 250 ml @ 125 mls/hr DAILY@1800 IV 07/14/24 18:00 07/15/24 18:23 125 MLS/HR Rifampin 600 mg DAILY@2100 GT 07/13/24 21:00 07/14/24 21:22 600 MG Ethambutol HCl 800 mg MWF GT 07/13/24 21:00 07/13/24 21:48 800 MG Phenytoin Sodium 100 mg Q8HR IV 07/14/24 06:00 07/15/24 14:50 100 MG Amino Acids 0 ml @ 0 mls/hr PER PHARMACY IV 07/15/24 22:00 Multivitamins 10 ml/Amino Acids/ Dextrose/Purified Water 1,210 ml @ 50 mls/hr [id number] IV 07/15/24 22:00 07/16/24 21:59 Sodium Bicarbonate 150 ml/Dextrose 1,150 ml @ 70 mls/hr [id number] IV 07/15/24 18:45 UNV Examination: LUNGS:Abnormal, MSK:Abnormal, SKIN:Abnormal, NEURO:Abnormal laboratory and microbiology Laboratory Tests 07/15/24 17:04 07/15/24 05:40 Test 07/15/24 05:40 Range/Units Serum Glucose 102 74-106 mg/dL Microbiology Date/Time Source Procedure Growth Status 07/13/24 11:38 Stool Clostridium difficile Toxin Assay - Final Complete 07/13/24 07:50 Blood Blood Culture - Preliminary NO GROWTH AFTER 48 HOURS OF INCUBATION. Resulted 07/12/24 20:25 Nose MRSA Screen - Final Complete 07/11/24 19:32 Cerebral Spinal Fluid Gram Stain - Final Resulted 07/11/24 19:32 Cerebral Spinal Fluid CSF Culture & Gram Stain (Tube 2) M - Preliminary Resulted 07/11/24 14:54 Voided Urine Urine Culture - Final Complete 07/07/24 06:10 Sputum Gram Stain - Final Complete 07/07/24 06:10 Respiratory Culture - Final Staphylococcus aureus Complete Problem List/Assessment/Plan Problem List/Assessment/Plan VEL likely acute tubular necrosis in the setting of hypotension/sepsis +nephrotoxicity from Abx hyponatremia sec to Bactrim use recently hyperkalemia AIDS PCP PNA leukopenia Recommendations bicarb drip d5 with 3amps bicarb,,non oliguric maintain map>65, vasopressors as needed chua kidney US noted ,,strict i and o events noted consideration for dialysis should renal function continues to deteriorate Discussed in detail with uncle bedside Plan discussed with: Other My Orders My Orders Orders - BAILEE WATTERS MD Procedure Category Date Status Time D5w 5% (Dextrose 5%) PHA 07/15/24 Logged W/Sodium Bicarb 50m 18:45 Dietary Evaluation Review Comments: 1. advance diet when medically feasible: Renal Sepcific 40g Protein restriction diet, supplement his protein needs with clinimix @ 41ml/hr (42.5 gPro 510 kcal) 2. TPN per pharmacy if NPO > 7 days Expected Outcomes/Goals: gradual wt gain, improved nutrition status. grdual healed wounds. BAILEE WATTERS MD Jul 15, 2024 18:39
--- NOTE | 2024-07-15 19:15 | DVHPN2 ---
Progress Note - Dictate Date Seen: Jul 15, 2024 Has the PT tested + for MRSA If YES, has PT been informed?: Yes Medical Necessity Reason Pt with a Central, PICC or Fol: Yes The following are medically ne: Chua Catheter Reason for chua catheter: Strict I&O Subjective PATIENT DOES NOT WANT ANY INFORMATION SHARED 07/13/24 Re-Assessment Re: HIGINIO HUANG spoke with patient uncle Blaine ([phone]) in regards to patients wishes when he was a/ox4. Per patient he did not want any family to be provided with any medical information. Since patient is unable to make any medical decisions at that moment, who will make any medical decisions would have to be determined. Respiratory Care Technician will be consulted. Per patients Uncle patient has no Next of Kin, last remaining member of his immediate family. On 07/15/24, his nurse told him that I could talked to his uncle and friend, Aleena Moss is a 28 years old gentleman with a history of HIV/aids, he was [facility]2024 for further evaluation treatment. On 07/11/24, he had seizure-like activity however his nurse and medical staff did not witnessed symptoms. He can move the fingers slightly on verbal commands Phenytoin, 07/14/2019 5:15.7 (Alb: 2.8) CSF, 07/11/2024: RBC: Five, protein: 46 found eight, glucose: 49 UDS, 06/26/2024: Opiates Plasma alcohol, 06/25/2024: Normal Urinalysis, 07/17/2024: WBC: Negative, urine leukocyte esterase: Negative WBC/HB/PLT/MCV, 07/12/2024: 4.4/6.4/331/78 0.1 PT/INR/PTT, 06/15/2024: 0.2/35/29/112, 06/12/2024: 11.1/1.06/29.3 Na, 06/08/2024: 136, 06/15/24:129, 06/20/24: 122, 06/24/2024: 117, 06/25 06/30: 121, 07/03/2024: 120, 07/06/2024: 123, 07/12/24: 132 BUN/CR, 07/02/2024: 15/0.49 07/12/2024: 68/4.30 TBI/AST/ALT/AP, 06/24/2024: 4.10/2515/1321/482, 07/02/2024: 9.8/71/196/710, 07/12/2024: 3.2/79/50/395 EEG, 07/13/2024: Electrographic status epileptics CT head, 07/11/2024: No acute intracranial process. MRI head, 07/06/2024: No acute cardiopulmonary disease. vital signs Vital Sign Date Time Temp Pulse Resp B/P (MAP) Pulse Ox O2 Delivery O2 Flow Rate FiO2 07/15/24 19:00 97.2 108 14 118/81 (93) 99 207.0 07/15/24 08:00 Room Air* 0 21 Total Intake and Output 07/14/24 07/14/24 07/15/24 15:00 23:00 07:00 Intake Total 1249.5 ml 1195.5 ml 1088 ml Output Total 450 ml 1625 ml Balance 1249.5 ml 745.5 ml -537 ml medications Current Medications Medications Dose Ordered Sig/Sean Route Start Time Stop Time Status Last Admin Dose Admin Guaifenesin/ Dextromethorphan 10 ml Q4HP PRN PO 06/08/24 11:00 07/10/24 01:48 10 ML Morphine Sulfate 1 mg Q4HPRN PRN IV 06/16/24 14:00 07/11/24 18:09 1 MG Ondansetron HCl 4 mg Q4HP PRN IV 06/21/24 16:00 07/11/24 06:17 4 MG Nystatin 5 ml QID MT 06/27/24 12:00 07/15/24 17:39 5 ML Pantoprazole Sodium 40 mg DAILY@0600 PO 06/29/24 06:00 07/15/24 06:01 40 MG Ursodiol 300 mg BID PO 06/28/24 22:00 07/15/24 09:00 300 MG Morphine Sulfate 2 mg Q4HPRN PRN IV 06/29/24 16:45 Docusate Sodium 200 mg DAILYPRN PRN PO 07/02/24 14:30 Artificial Tears 1 drop Q6HP PRN EACHEYE 07/03/24 14:00 07/04/24 05:19 1 DROP Acetaminophen 650 mg Q6HP PRN PO 07/07/24 17:30 07/10/24 16:30 650 MG Linezolid 300 ml @ 150 mls/hr Q12HR IV 07/11/24 22:00 07/15/24 09:30 150 MLS/HR Metoclopramide HCl 5 mg Q8HPRN PRN IV 07/12/24 12:00 Cefepime HCl 50 ml @ 12.5 mls/hr Q24H IV 07/13/24 12:00 07/15/24 12:00 12.5 MLS/HR Diagnostic Test (Pha) 1 strip Q6HR 07/12/24 18:00 07/15/24 17:38 1 STRIP Insulin Human Regular FOLLOW SLIDING SCALE Q6HR SC 07/12/24 18:00 07/15/24 17:39 2 UNITS Dextrose 50 ml UD IV 07/12/24 17:45 Amino Acids/ Electrolytes/ Dextrose 1,000 ml @ 41 mls/hr DAILY@2200 IV 07/12/24 22:00 07/15/24 21:59 07/14/24 21:24 41 MLS/HR Levetiracetam 100 ml @ 400 mls/hr BID IV 07/12/24 22:00 07/15/24 09:00 400 MLS/HR Lorazepam 1 mg Q5MINP PRN IV 07/12/24 21:15 07/14/24 16:23 1 MG Azithromycin 250 ml @ 125 mls/hr DAILY@1800 IV 07/14/24 18:00 07/15/24 18:23 125 MLS/HR Rifampin 600 mg DAILY@2100 GT 07/13/24 21:00 07/14/24 21:22 600 MG Ethambutol HCl 800 mg MWF GT 07/13/24 21:00 07/13/24 21:48 800 MG Phenytoin Sodium 100 mg Q8HR IV 07/14/24 06:00 07/15/24 14:50 100 MG Amino Acids 0 ml @ 0 mls/hr PER PHARMACY IV 07/15/24 22:00 Multivitamins 10 ml/Amino Acids/ Dextrose/Purified Water 1,210 ml @ 50 mls/hr [id number] IV 07/15/24 22:00 07/16/24 21:59 Sodium Bicarbonate 150 ml/Dextrose 1,150 ml @ 70 mls/hr [id number] IV 07/15/24 18:45 objective General: the patient is well developed and nourished. No acute distress. MENTAL STATUS: Subjective SPEECH, LANGUAGE, HIGHER CORTICAL FUNCTION: Deferred CRANIAL NERVES: Pupils are equal, round and reactive. Eyes deviated to deviated to left side Facial muscles symmetrical and strength intact. SENSATION: Possibly responsive to painful stimuli MOTOR: Normal tone in the upper and lower extremity. Subjective REFLEXES: Deep tendon reflexes are symmetrical. No pathological reflexes. CEREBELLAR/COORDINATION: Deferred GAIT/STATION: deferred laboratory and microbiology Laboratory Tests 07/15/24 17:04 07/15/24 05:40 Test 07/15/24 05:40 Range/Units Serum Glucose 102 74-106 mg/dL Problem List Witnessed seizure-like activity Altered mental status Status epilepticus Metabolic encephalopathy Aids Anemia Leukopenia Kidney failure Elevated liver function tests Hyponatremia Assessment/Plan Monitoring Supportive treatment STELLA care Aerosol isolation Oxygen Respiratory support p.r.n. Stabilize vitals p.r.n. IV antibiotics Dilantin 100 mg IV Q 8 hours Keppra 1000 mg b.i.d. Ativan for seizure breakthrough More recommendation per clinical course This medical document was created using an electronic medical record system with [employer] dictation system. Although this document has been carefully reviewed, there may still be some phonetic and typographical errors. These areas are purely typographical due to imperfections of the software programs, and do not reflect any compromise in the patient's medical care Prognosis guarded Dietary Evaluation Review Comments: 1. advance diet when medically feasible: Renal Sepcific 40g Protein restriction diet, supplement his protein needs with clinimix @ 41ml/hr (42.5 gPro 510 kcal) 2. TPN per pharmacy if NPO > 7 days Expected Outcomes/Goals: gradual wt gain, improved nutrition status. grdual healed wounds. Plan discussed with: Other Critical Care Time(min): 35 JEFFERY CHAVEZ MD Jul 15, 2024 19:15
--- NOTE | 2024-07-15 19:31 | DVHPN2 ---
Progress Note - Dictate Date Seen: Jul 15, 2024 Has the PT tested + for MRSA If YES, has PT been informed?: Yes Medical Necessity Reason Pt with a Central, PICC or Fol: Yes The following are medically ne: Chua Catheter Reason for chua catheter: Strict I&O Subjective Patient is in isolation room 261 Patient has AIDS with opportunistic infection Patient is having nystagmus with deviation of his I EEG was showing seizure activity every [address] of the brain was negative Liver enzymes and WBC trending down CT brain negative Sodium is improved to 136 H&H is stable Hyponatremia improving sodium up to 126 vital signs Vital Sign Date Time Temp Pulse Resp B/P (MAP) Pulse Ox O2 Delivery O2 Flow Rate FiO2 07/15/24 19:00 97.2 108 14 118/81 (93) 99 207.0 07/15/24 08:00 Room Air* 0 21 Total Intake and Output 07/14/24 07/14/24 07/15/24 15:00 23:00 07:00 Intake Total 1249.5 ml 1195.5 ml 1088 ml Output Total 450 ml 1625 ml Balance 1249.5 ml 745.5 ml -537 ml medications Current Medications Medications Dose Ordered Sig/Sean Route Start Time Stop Time Status Last Admin Dose Admin Guaifenesin/ Dextromethorphan 10 ml Q4HP PRN PO 06/08/24 11:00 07/10/24 01:48 10 ML Morphine Sulfate 1 mg Q4HPRN PRN IV 06/16/24 14:00 07/11/24 18:09 1 MG Ondansetron HCl 4 mg Q4HP PRN IV 06/21/24 16:00 07/11/24 06:17 4 MG Nystatin 5 ml QID MT 06/27/24 12:00 07/15/24 17:39 5 ML Pantoprazole Sodium 40 mg DAILY@0600 PO 06/29/24 06:00 07/15/24 06:01 40 MG Ursodiol 300 mg BID PO 06/28/24 22:00 07/15/24 09:00 300 MG Morphine Sulfate 2 mg Q4HPRN PRN IV 06/29/24 16:45 Docusate Sodium 200 mg DAILYPRN PRN PO 07/02/24 14:30 Artificial Tears 1 drop Q6HP PRN EACHEYE 07/03/24 14:00 1/29/25 05:19 1 DROP Acetaminophen 650 mg Q6HP PRN PO 07/07/24 17:30 07/10/24 16:30 650 MG Linezolid 300 ml @ 150 mls/hr Q12HR IV 07/11/24 22:00 07/15/24 09:30 150 MLS/HR Metoclopramide HCl 5 mg Q8HPRN PRN IV 07/12/24 12:00 Cefepime HCl 50 ml @ 12.5 mls/hr Q24H IV 07/13/24 12:00 07/15/24 12:00 12.5 MLS/HR Diagnostic Test (Pha) 1 strip Q6HR 07/12/24 18:00 07/15/24 17:38 1 STRIP Insulin Human Regular FOLLOW SLIDING SCALE Q6HR SC 07/12/24 18:00 07/15/24 17:39 2 UNITS Dextrose 50 ml UD IV 07/12/24 17:45 Amino Acids/ Electrolytes/ Dextrose 1,000 ml @ 41 mls/hr DAILY@2200 IV 07/12/24 22:00 07/15/24 21:59 07/14/24 21:24 41 MLS/HR Levetiracetam 100 ml @ 400 mls/hr BID IV 07/12/24 22:00 07/15/24 09:00 400 MLS/HR Lorazepam 1 mg Q5MINP PRN IV 07/12/24 21:15 07/14/24 16:23 1 MG Azithromycin 250 ml @ 125 mls/hr DAILY@1800 IV 07/14/24 18:00 07/15/24 18:23 125 MLS/HR Rifampin 600 mg DAILY@2100 GT 07/13/24 21:00 07/14/24 21:22 600 MG Ethambutol HCl 800 mg MWF GT 07/13/24 21:00 07/13/24 21:48 800 MG Phenytoin Sodium 100 mg Q8HR IV 07/14/24 06:00 07/15/24 14:50 100 MG Amino Acids 0 ml @ 0 mls/hr PER PHARMACY IV 07/15/24 22:00 Multivitamins 10 ml/Amino Acids/ Dextrose/Purified Water 1,210 ml @ 50 mls/hr [id number] IV 07/15/24 22:00 07/16/24 21:59 Sodium Bicarbonate 150 ml/Dextrose 1,150 ml @ 70 mls/hr [id number] IV 07/15/24 18:45 objective General Appearance: Altered ;appears chronically ill Eyes deviated to deviated to left side Facial muscles symmetrical and strength intact. 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 advance diet when medically feasible: Renal Sepcific 40g Protein restriction diet, supplement his protein needs with clinimix @ 41ml/hr (42.5 gPro 510 kcal) 2. TPN per pharmacy if NPO > 7 days Expected Outcomes/Goals: gradual wt gain, improved nutrition status. grdual healed wounds. Plan discussed with: Other (STELLA Nurse) JOB MCNEIL MD Jul 15, 2024 19:30
[2024-07-15] MEDS: SODIUM BICARB 8.4% 50Meq/50ml SYR Vial IV ONE (21:14)
[2024-07-15] MEDS: SODIUM BICARB 50mEq/50ml Vial 150 ML in D5W 5% 1,000 ML IV SCH (21:14)
[2024-07-15] MEDS: PPN PER PHARMACY IV NR (21:18)
[2024-07-15] MEDS ORDERED: TPN PER PHARMACY 0 ML IV SCH (22:00)
[2024-07-15] MEDS ORDERED: PPN PER PHARMACY IV NR (22:00)
--- NOTE | 2024-07-15 22:16 | DVHPN2 ---
Subjective Lethargic Reviewed: Care Plan, H&P, Labs, Medications, Previous Orders, Radiology, Other (Consultations) Changes from previous H/P or p: No Changes Musculoskeletal: No leg pain Objective Vitals Vital Signs Date Time Temp Pulse Resp B/P (MAP) Pulse Ox O2 Delivery O2 Flow Rate FiO2 07/15/24 20:00 122 07/15/24 19:00 97.2 14 118/81 (93) 99 207.0 07/15/24 08:00 Room Air* 0 21 Intake/Output Intake and Output 07/15/24 07:00 Intake Total 3533.0 ml Output Total 2075 ml Balance 1458.0 ml Intake Oral 30 ml IV Total 3443.0 ml Other 60 ml Output Urine Total 1375 ml Gastric Drainage Total 700 ml # Bowel Movements 3 General Appearance: Other (Lethargic) HEENT: Atraumatic, Other (NGT in place) Lungs: Other (Decreased air entry bilateral with crackles ) Cardiovascular: Regular rate, Normal S1, Normal S2, No murmurs Abdomen: Normal bowel sounds, Soft Genitourinary: Other (Elliott's) Neuro: Sensation intact, Other (Lethargic) Skin: Dry, Intact Medications Current Medications Medications Dose Ordered Sig/Sean Route Start Time Stop Time Status Last Admin Dose Admin Guaifenesin/ Dextromethorphan 10 ml Q4HP PRN PO 06/08/24 11:00 07/10/24 01:48 10 ML Morphine Sulfate 1 mg Q4HPRN PRN IV 06/16/24 14:00 07/11/24 18:09 1 MG Ondansetron HCl 4 mg Q4HP PRN IV 06/21/24 16:00 07/11/24 06:17 4 MG Nystatin 5 ml QID MT 06/27/24 12:00 07/15/24 21:51 5 ML Pantoprazole Sodium 40 mg DAILY@0600 PO 06/29/24 06:00 07/15/24 06:01 40 MG Ursodiol 300 mg BID PO 06/28/24 22:00 07/15/24 21:15 300 MG Morphine Sulfate 2 mg Q4HPRN PRN IV 06/29/24 16:45 Docusate Sodium 200 mg DAILYPRN PRN PO 07/02/24 14:30 Artificial Tears 1 drop Q6HP PRN EACHEYE 07/03/24 14:00 07/04/24 05:19 1 DROP Acetaminophen 650 mg Q6HP PRN PO 07/07/24 17:30 07/10/24 16:30 650 MG Linezolid 300 ml @ 150 mls/hr Q12HR IV 07/11/24 22:00 07/15/24 21:16 150 MLS/HR Metoclopramide HCl 5 mg Q8HPRN PRN IV 07/12/24 12:00 Cefepime HCl 50 ml @ 12.5 mls/hr Q24H IV 07/13/24 12:00 07/15/24 12:00 12.5 MLS/HR Diagnostic Test (Pha) 1 strip Q6HR 07/12/24 18:00 07/15/24 17:38 1 STRIP Insulin Human Regular FOLLOW SLIDING SCALE Q6HR SC 07/12/24 18:00 07/15/24 17:39 2 UNITS Dextrose 50 ml UD IV 07/12/24 17:45 Amino Acids/ Electrolytes/ Dextrose 1,000 ml @ 41 mls/hr DAILY@2200 IV 07/12/24 22:00 07/15/24 21:59 07/14/24 21:24 41 MLS/HR Levetiracetam 100 ml @ 400 mls/hr BID IV 07/12/24 22:00 07/15/24 21:16 400 MLS/HR Lorazepam 1 mg Q5MINP PRN IV 07/12/24 21:15 07/14/24 16:23 1 MG Azithromycin 250 ml @ 125 mls/hr DAILY@1800 IV 07/14/24 18:00 07/15/24 18:23 125 MLS/HR Rifampin 600 mg DAILY@2100 GT 07/13/24 21:00 07/15/24 21:16 600 MG Ethambutol HCl 800 mg MWF GT 07/13/24 21:00 07/13/24 21:48 800 MG Phenytoin Sodium 100 mg Q8HR IV 07/14/24 06:00 07/15/24 21:15 100 MG Amino Acids 0 ml @ 0 mls/hr PER PHARMACY IV 07/15/24 22:00 Multivitamins 10 ml/Amino Acids/ Dextrose/Purified Water 1,210 ml @ 50 mls/hr [id number] IV 07/15/24 22:00 2/10/25 21:59 07/15/24 21:18 50 MLS/HR Sodium Bicarbonate 150 ml/Dextrose 1,150 ml @ 70 mls/hr [id number] IV 07/15/24 18:45 07/15/24 21:14 70 MLS/HR Laboratory Results Laboratory Tests 07/15/24 05:40 07/15/24 17:04 Chemistry Test 07/15/24 05:40 Albumin 2.9 g/dL (3.2-4.8) L Calcium Level 8.3 mg/dL (8.7-10.4) L Magnesium Level 1.6 mg/dL (1.6-2.6) Phosphorus Level 3.8 mg/dL (2.4-5.1) Total Protein 5.6 g/dL (5.7-8.2) L LFT Test 07/15/24 05:40 Alanine Aminotransferase (ALT) 27 U/L (7-40) Alkaline Phosphatase 301 U/L (46-116) H Aspartate Amino Transferase (AST) 40 U/L (13-40) Total Bilirubin 2.1 mg/dL (0.2-1.0) H Urinalysis Test 06/12/24 20:52 06/23/24 09:13 07/07/24 17:20 Urine Mucus Few (None Seen) Urine WBC 1 /hpf (0 - 3) Urine Color Dark-yellow (Yellow) Urine Clarity Clear (Clear) Urine pH 7.5 (5.0-9.0) Urine Specific [place] 1.020 (1.001-1.035) Urine Protein 1+ (Negative) H Urine Ketones Negative (Negative) Urine Blood Negative /uL (Negative) Urine Nitrite Negative (Negative) Urine Bilirubin 1+ (Negative) Urine Urobilinogen 2 mg/dL (Negative) H Urine Leukocyte Esterase Negative /uL (Negative) Urine RBC <1 /hpf (0 - 3) Urine Microscopic WBC 2 /HPF (0-3) Urine Squamous Epithelial Cells None seen /hpf (<5) Urine Bacteria None seen /hpf (None Seen) Urine Osmolality 440 mOsm/kg Urine Sodium 60 mmol/L (40-220) Urine Glucose Normal mg/dL (Normal) Microbiology Microbiology Date/Time Source Procedure Growth Status 07/13/24 11:38 Stool Clostridium difficile Toxin Assay - Final Complete 07/13/24 07:50 Blood Blood Culture - Preliminary NO GROWTH AFTER 48 HOURS OF INCUBATION. Resulted 07/12/24 20:25 Nose MRSA Screen - Final Complete 07/11/24 19:32 Cerebral Spinal Fluid Gram Stain - Final Resulted 07/11/24 19:32 Cerebral Spinal Fluid CSF Culture & Gram Stain (Tube 2) M - Preliminary Resulted 07/11/24 14:54 Voided Urine Urine Culture - Final Complete 07/07/24 06:10 Sputum Gram Stain - Final Complete 07/07/24 06:10 Respiratory Culture - Final Staphylococcus aureus Complete Labs and/or images reviewed: Labs reviewed by me, Image(s) reviewed by me Assessment/Plan Assessment/Plan Covering Dr. Garcia: #Acute metabolic/toxic encephalopathy in the setting of witnessed seizure-like activity;altered mental status; status epilepticus as per neurology #AIDS #Sclerosing cholangitis associated with HIV disease #Severe sepsis due to UTI, and atypical pneumonia #Atypical pneumonia #Elevated liver enzymes #VEL likely acute tubular necrosis/VMN in the setting of hypotension/sepsis and nephrotoxicity from antibiotics as per nephrology #Hyponatremia due to recent Bactrim use as per nephrology #Hyperkalemia due to VEL but now with hypokalemia #Leukopenia due to AIDS Neurology, Pulmonology, Infectious Disease, Nephrology, and GI are following Continue broad-spectrum IV antibiotics Continue anti-seizures medications as per neurology Monitor electrolytes closely and replace/correct as needed as per nephrology Avoid hepato/nephrotoxic agents Reviewed available cultures, labs, and imaging studies including CXRs, and repeat head CT of 07/15/2024 Seizures precautions Droplet precautions Continue close monitoring 55 minutes of critical care time. Late Entry. This medical document was created using an electronic medical record system with computerized dictation system. Although this document has been carefully reviewed, there might still be some phonetic and typographical errors. These areas are purely typographical due to imperfections of the software programs, and do not reflect any compromise in the patient's medical care. Plan discussed with: Other (Nurse) My Orders Orders - MADY BAEZ MD Procedure Category Date Status Time Head Without Contrast CT 07/15/24 Resulted 10:27 * Fixed Wing Pilot CONS 07/15/24 Transmitted Consult Date of Service: Jul 15, 2024 Billing Provider: MADY BAEZ MD Common Visit Codes: [id number] CARE 30-74 MIN (55 minutes) MADY BAEZ MD Jul 15, 2024 22:16
--- NOTE | 2024-07-15 23:24 | DVHPN2 ---
Consult Progress Note Date Seen: Jul 15, 2024 Subjective Patient reports: Other (doing well , still altered , not awakening , still having mild diarrhea . is only arousable with deep sternal rub ) Objective vital signs Vital Sign Date Time Temp Pulse Resp B/P (MAP) Pulse Ox O2 Delivery O2 Flow Rate FiO2 07/15/24 20:00 122 07/15/24 19:00 97.2 14 118/81 (93) 99 207.0 07/15/24 08:00 Room Air* 0 21 Total Intake and Output 07/14/24 07/14/24 07/15/24 15:00 23:00 07:00 Intake Total 1249.5 ml 1195.5 ml 1088 ml Output Total 450 ml 1625 ml Balance 1249.5 ml 745.5 ml -537 ml medications Current Medications Medications Dose Ordered Sig/Sean Route Start Time Stop Time Status Last Admin Dose Admin Guaifenesin/ Dextromethorphan 10 ml Q4HP PRN PO 06/08/24 11:00 07/10/24 01:48 10 ML Morphine Sulfate 1 mg Q4HPRN PRN IV 06/16/24 14:00 07/11/24 18:09 1 MG Ondansetron HCl 4 mg Q4HP PRN IV 06/21/24 16:00 07/11/24 06:17 4 MG Nystatin 5 ml QID MT 06/27/24 12:00 07/15/24 21:51 5 ML Pantoprazole Sodium 40 mg DAILY@0600 PO 06/29/24 06:00 07/15/24 06:01 40 MG Ursodiol 300 mg BID PO 06/28/24 22:00 07/15/24 21:15 300 MG Morphine Sulfate 2 mg Q4HPRN PRN IV 06/29/24 16:45 Docusate Sodium 200 mg DAILYPRN PRN PO 07/02/24 14:30 Artificial Tears 1 drop Q6HP PRN EACHEYE 07/03/24 14:00 07/04/24 05:19 1 DROP Acetaminophen 650 mg Q6HP PRN PO 07/07/24 17:30 07/10/24 16:30 650 MG Linezolid 300 ml @ 150 mls/hr Q12HR IV 07/11/24 22:00 07/15/24 21:16 150 MLS/HR Metoclopramide HCl 5 mg Q8HPRN PRN IV 07/12/24 12:00 Cefepime HCl 50 ml @ 12.5 mls/hr Q24H IV 07/13/24 12:00 07/15/24 12:00 12.5 MLS/HR Diagnostic Test (Pha) 1 strip Q6HR 07/12/24 18:00 07/15/24 17:38 1 STRIP Insulin Human Regular FOLLOW SLIDING SCALE Q6HR SC 07/12/24 18:00 07/15/24 17:39 2 UNITS Dextrose 50 ml UD IV 07/12/24 17:45 Levetiracetam 100 ml @ 400 mls/hr BID IV 07/12/24 22:00 07/15/24 21:16 400 MLS/HR Lorazepam 1 mg Q5MINP PRN IV 07/12/24 21:15 07/14/24 16:23 1 MG Azithromycin 250 ml @ 125 mls/hr DAILY@1800 IV 07/14/24 18:00 07/15/24 18:23 125 MLS/HR Rifampin 600 mg DAILY@2100 GT 07/13/24 21:00 07/15/24 21:16 600 MG Ethambutol HCl 800 mg MWF GT 07/13/24 21:00 07/13/24 21:48 800 MG Phenytoin Sodium 100 mg Q8HR IV 07/14/24 06:00 07/15/24 21:15 100 MG Amino Acids 0 ml @ 0 mls/hr PER PHARMACY IV 07/15/24 22:00 Multivitamins 10 ml/Amino Acids/ Dextrose/Purified Water 1,210 ml @ 50 mls/hr [id number] IV 07/15/24 22:00 07/16/24 21:59 07/15/24 21:18 50 MLS/HR Sodium Bicarbonate 150 ml/Dextrose 1,150 ml @ 70 mls/hr [id number] IV 07/15/24 18:45 07/15/24 21:14 70 MLS/HR Physical Exam General Appearance: Altered, protecting his airway, responding to pain stimuli, reactive pupils, Head Exam: Normal inspection Neck Exam: Normal inspection. Non-tender. Normal alignment Pulmonary/Respiratory: Chest non-tender. Clear bilateral breath sounds Cardiovascular/Chest: Regular rate and rhythm. No murmurs. No JVD. Peripheral Pulses: 2+ Radial (R). 2+ Radial (L). 2+ Pedal (R). 2+ Pedal (L) Abdominal Exam: Normal bowel sounds. Soft. Nontender. No hepatospenomegaly. No masses Ankle Exam: Negative ankle edema Lower extremities: Negative lower extremity edema Neuro/Mental Status: Alert, not oriented to time place and person. Pupillary reflex present, upper and and lower extremity muscular strength 4/5. 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 Age cholangiopathy/medication induced Hyponatremia likely due to SIADH Pulmonary nodule, 2 cm in size Left adrenal nodule Severe anemia Immunosuppressed Homosexual. Assessment: Patient is an HIV patient , 28 years old and diagnosed in May 2024 [facility] and transferred to [facility] . Patient CD4 count of 10 , viral load over 1 million and patient presented with acute hypoxic respiratory failure fevers and has been in hospital for about 1 month and in ICU requiring levofed . has a bronchoscopy done showing BAL cytology finding consistency with PJP pneumonia so started on bactrum from 7 days and then discontinued due to patient developing LFT elevation as well as hyperbilirubinemia . switched to climdamycin then discontinued due to patient improving and put on room ai r, evaluated for TB , AFB sputum has been negative and MTBPCR x2 has been negative however after 2 weeks 1 of patients sputum is growing AFB organism thats yet to be identified. feels a bit weak and has been having weightloss , fevers , chills for the last several months, last febrile was 48 hours ago with a temp of 100.5 and is neuropenic with a whitecount of 1.2 and is tachycardic with HR of 128 . low body weight of 54.1 kg and kexia and poor historia , having anemia with a hemoglobin of 7.6 which has been going down during admission . problem list includes HIV Aids , pneumonia , multi opportunistic organism infection including PJP and possibly TB vs Mac infection , cytopenias , neutropenic fever , sepsis , anemia , UTI with enterococcus . 12 point review systems and vitals signs and relevant imaging has been reviewed by me . plan for patient would be to stop ampicillin and start vancomycin and cefamine empirically due to fevers and unresolved sepsis and continue until fevers have resolved for 48 hours and meutropenia has improved . would check prior hold HAART therapy until TB infection is ruled out as cryptococal toxoplasm and CMV infections . check serologies for these and would restart patient on bactrum to finish 21 day course , will monitor LFTs and anemia . recommend checking AFB blood in stool for further evaluation of MAC infection and follow up on AFB cultures . continue airborne and droplet isolation precautions 2/4; continues to be febrile and was reported by Dr Vu in the AM to be more alert , lethargic and not responding to questions but responding to deep sternal rub . patients whitecount is rising and kidney function is worsening. Is on room air and can forgo PJP treatments since it is unlikely playing a large role in septic picture and patietns on room ait . Patient weighs 106 lbs , so attempt to lower bactrum to 1 double strength tablet 3x a day and monitor kidney function , can stop vancomycin in setting of VEL and will switch to linasolid and continue cefepime. If mentation does not improve in next 24 hours patient will need lumbar puncture. recommend repeating blood cultures and doing a chest ct of abdomen and pelvis 2/: remains uptunded but is able to protenct airway , underwent a lumbar puncture earlier in the day and is still not responsive and pulling out lines . no fever in the last 24 hours but patient is having rising keratin , BUN 68 which is possibly contributing to an altered mental staus . however would want to rule out any type of infectious meningitis in the setting of AIDs for lumbar punture recommend bacterial AFB fungal culture , viral culture , CMV antibuody , VZV antibody , cryptococcus antibody , coxy antibody , RPR , HSVPR , PCR , VDRL . Continue linazolid and cefepime which will provide patient with adequate menegitis coverage . unclear ideology staus at this stime but suspect its a combination of HIV encephalopathy with providing a low baseline mentation in setting of uremia , worsening kidney function may be attributable to bactrum vs HIV nephropathy . Patients BP is holding steady a bit on the low side , waiting to follow up on AFB culture speciation to see if we are attempting to treat MAC vs TB . Hold of on HAART therapy for now while awaiting results for cryptococcal and AFB studies. will hold off Bactrim to avoid worsening keratin from nephrotoxicity and PJP is not a priority to treat at this time 07/12: Is breathing on room air and remains largely obtained but is still protecting his airway . lumbar puncture bacterial culture suggests that there is no acute concern for bacterial infection in the CSF . Plan for patient to stop Bactrim due to rising creatine and continue empirical therapy with linezolid and cefepime . will continue to follow up on AFB culture results 07/13: continues to feel lethargic and not really waking up but does respond to sternal rub and is protecting his airway . no neck ridgitiy . AFB cultures have return positive for microbacterial avium complex still awaiting AFB blood and stool to confirm disseminated MAC infection so for now continue linezolid and cefepime therapy in addition will add ethambutol and rifampin and azithromycin via Ngtube . Would recommend repeating EKG to monitor QTC in 5 days as well as check LTFs daily while on rifampin therapy 07/14: C diff testing is negative . renal function continues to worsen . patients altered mental status is likely related to uremia , BUN of 75 , creatine of 4.39 , patient may require dialysis 07/15: patients kidney function continues to decline Plan: - Will talk with pharmacy to add a HAART therapy compatible with patients renal failure to if controlling viremia would help with improving renal function however will need to await for CSF antigen to return Plan discussed with: Other Dietary Evaluation Review Comments: 1. advance diet when medically feasible: Renal Sepcific 40g Protein restriction diet, supplement his protein needs with clinimix @ 41ml/hr (42.5 gPro 510 kcal) 2. TPN per pharmacy if NPO > 7 days Expected Outcomes/Goals: gradual wt gain, improved nutrition status. grdual healed wounds. JONO CAPUTO MD Jul 15, 2024 23:24
--- NOTE | 2024-07-15 23:24 | DVHPN2 ---
Consult Progress Note Date Seen: Jul 14, 2024 Subjective Patient reports: Other (no seizure activity , Dr Bailey has seen patient and placed him on antiepileptics . having mild diarrhea and lose stolls with a total of 3 bowel movements in last 24 hours ) Objective vital signs Vital Sign Date Time Temp Pulse Resp B/P (MAP) Pulse Ox O2 Delivery O2 Flow Rate FiO2 07/15/24 20:00 122 07/15/24 19:00 97.2 14 118/81 (93) 99 207.0 07/15/24 08:00 Room Air* 0 21 Total Intake and Output 07/14/24 07/14/24 07/15/24 15:00 23:00 07:00 Intake Total 1249.5 ml 1195.5 ml 1088 ml Output Total 450 ml 1625 ml Balance 1249.5 ml 745.5 ml -537 ml medications Current Medications Medications Dose Ordered Sig/Sean Route Start Time Stop Time Status Last Admin Dose Admin Guaifenesin/ Dextromethorphan 10 ml Q4HP PRN PO 06/08/24 11:00 07/10/24 01:48 10 ML Morphine Sulfate 1 mg Q4HPRN PRN IV 06/16/24 14:00 07/11/24 18:09 1 MG Ondansetron HCl 4 mg Q4HP PRN IV 06/21/24 16:00 07/11/24 06:17 4 MG Nystatin 5 ml QID MT 06/27/24 12:00 07/15/24 21:51 5 ML Pantoprazole Sodium 40 mg DAILY@0600 PO 06/29/24 06:00 07/15/24 06:01 40 MG Ursodiol 300 mg BID PO 06/28/24 22:00 07/15/24 21:15 300 MG Morphine Sulfate 2 mg Q4HPRN PRN IV 06/29/24 16:45 Docusate Sodium 200 mg DAILYPRN PRN PO 07/02/24 14:30 Artificial Tears 1 drop Q6HP PRN EACHEYE 07/03/24 14:00 07/04/24 05:19 1 DROP Acetaminophen 650 mg Q6HP PRN PO 07/07/24 17:30 07/10/24 16:30 650 MG Linezolid 300 ml @ 150 mls/hr Q12HR IV 07/11/24 22:00 07/15/24 21:16 150 MLS/HR Metoclopramide HCl 5 mg Q8HPRN PRN IV 07/12/24 12:00 Cefepime HCl 50 ml @ 12.5 mls/hr Q24H IV 07/13/24 12:00 07/15/24 12:00 12.5 MLS/HR Diagnostic Test (Pha) 1 strip Q6HR 07/12/24 18:00 07/15/24 17:38 1 STRIP Insulin Human Regular FOLLOW SLIDING SCALE Q6HR SC 07/12/24 18:00 07/15/24 17:39 2 UNITS Dextrose 50 ml UD IV 07/12/24 17:45 Levetiracetam 100 ml @ 400 mls/hr BID IV 07/12/24 22:00 07/15/24 21:16 400 MLS/HR Lorazepam 1 mg Q5MINP PRN IV 07/12/24 21:15 07/14/24 16:23 1 MG Azithromycin 250 ml @ 125 mls/hr DAILY@1800 IV 07/14/24 18:00 07/15/24 18:23 125 MLS/HR Rifampin 600 mg DAILY@2100 GT 07/13/24 21:00 07/15/24 21:16 600 MG Ethambutol HCl 800 mg MWF GT 07/13/24 21:00 07/13/24 21:48 800 MG Phenytoin Sodium 100 mg Q8HR IV 07/14/24 06:00 07/15/24 21:15 100 MG Amino Acids 0 ml @ 0 mls/hr PER PHARMACY IV 07/15/24 22:00 Multivitamins 10 ml/Amino Acids/ Dextrose/Purified Water 1,210 ml @ 50 mls/hr [id number] IV 07/15/24 22:00 07/16/24 21:59 07/15/24 21:18 50 MLS/HR Sodium Bicarbonate 150 ml/Dextrose 1,150 ml @ 70 mls/hr [id number] IV 07/15/24 18:45 07/15/24 21:14 70 MLS/HR Physical Exam General Appearance: Altered, protecting his airway, responding to pain stimuli, reactive pupils, Head Exam: Normal inspection Neck Exam: Normal inspection. Non-tender. Normal alignment Pulmonary/Respiratory: Chest non-tender. Clear bilateral breath sounds Cardiovascular/Chest: Regular rate and rhythm. No murmurs. No JVD. Peripheral Pulses: 2+ Radial (R). 2+ Radial (L). 2+ Pedal (R). 2+ Pedal (L) Abdominal Exam: Normal bowel sounds. Soft. Nontender. No hepatospenomegaly. No masses Ankle Exam: Negative ankle edema Lower extremities: Negative lower extremity edema Neuro/Mental Status: Alert, not oriented to time place and person. Pupillary reflex present, upper and and lower extremity muscular strength 4/5. Sensory examination can not be done laboratory and microbiology Laboratory Tests 07/15/24 17:04 07/15/24 05:40 Test 07/15/24 05:40 Range/Units Serum Glucose 102 74-106 mg/dL Problem List/Assessment/Plan Problems(with codes): (1) AIDS (acquired immune deficiency syndrome) (2) Sclerosing cholangitis associated with HIV disease (3) History of SIADH (4) Hyponatremia (5) Elevated liver enzymes (6) HIV (human immunodeficiency virus infection) (7) Atypical pneumonia Problem List/Assessment/Plan Problem List : Pneumocystis Jerovoci or Carini Pneumonia ( opportunistic infection) AIDS, CD4 count less than 10 Acid-fast bacilli culture positive , Mycobacterium avium complex infection Neutropenic fever UTI Enterococcus faecalis Multifocal pneumonia Septic shock due to pneumonia: Currently off vasopressor Transaminitis with elevated bilirubin ? Age cholangiopathy/medication induced Hyponatremia likely due to SIADH Pulmonary nodule, 2 cm in size Left adrenal nodule Severe anemia Immunosuppressed Homosexual. Assessment: Patient is an HIV patient , 28 years old and diagnosed in may 2024 [facility] and transferred to [facility] . Patient seen by myself and Dr Benito reviewed chart and disscussed paln with Dr Benito . Patient CD4 count of 10 , viral load over 1 million and patient presented with acute hypoxic respiratory failure fevers and has been in hospital for about 1 month and in ICU requiring levofed . has a bronchoscopy done showing BAL cytology finding consistency with PJP pneumonia so started on bactrum from 7 days and then discontinued due to patient developing LFT elevation as well as hyperbilirubinemia . switched to climdamycin then discontinued due to patient improving and put on room ai r, evaluated for TB , AFB sputum has been negative and MTBPCR x2 has been negative however after 2 weeks 1 of patients sputum is growing AFB organism thats yet to be identified. feels a bit weak and has been having weightloss , fevers , chills for the last several months, last febrile was 48 hours ago with a temp of 100.5 and is neuropenic with a whitecount of 1.2 and is tachycardic with HR of 128 . low body weight of 54.1 kg and kexia and poor historia , having anemia with a hemoglobin of 7.6 which has been going down during admission . problem list includes HIV Aids , pneumonia , multi opportunistic organism infection including PJP and possibly TB vs Mac infection , cytopenias , neutropenic fever , sepsis , anemia , UTI with enterococcus . 12 point review systems and vitals signs and relevant imaging has been reviewed by me . plan for patient would be to stop ampicillin and start vancomycin and cefamine empirically due to fevers and unresolved sepsis and continue until fevers have resolved for 48 hours and meutropenia has improved . would check prior hold HAART therapy until TB infection is ruled out as cryptococal toxoplasm and CMV infections . check serologies for these and would restart patient on bactrum to finish 21 day course , will monitor LFTs and anemia . recommend checking AFB blood in stool for further evaluation of MAC infection and follow up on AFB cultures . continue airborne and droplet isolation precautions 2/4; continues to be febrile and was reported by Dr Vu in the AM to be more alert , lethargic and not responding to questions but responding to deep sternal rub . patients whitecount is rising and kidney function is worsening. Is on room air and can forgo PJP treatments since it is unlikely playing a large role in septic picture and patietns on room ait . Patient weighs 106 lbs , so attempt to lower bactrum to 1 double strength tablet 3x a day and monitor kidney function , can stop vancomycin in setting of VEL and will switch to linasolid and continue cefepime. If mentation does not improve in next 24 hours patient will need lumbar puncture. recommend repeating blood cultures and doing a chest ct of abdomen and pelvis 2: remains uptunded but is able to protenct airway , underwent a lumbar puncture earlier in the day and is still not responsive and pulling out lines . no fever in the last 24 hours but patient is having rising keratin , BUN 68 which is possibly contributing to an altered mental staus . however would want to rule out any type of infectious meningitis in the setting of AIDs for lumbar punture recommend bacterial AFB fungal culture , viral culture , CMV antibuody , VZV antibody , cryptococcus antibody , coxy antibody , RPR , HSVPR , PCR , VDRL . Continue linazolid and cefepime which will provide patient with adequate menegitis coverage . unclear ideology staus at this stime but suspect its a combination of HIV encephalopathy with providing a low baseline mentation in setting of uremia , worsening kidney function may be attributable to bactrum vs HIV nephropathy . Patients BP is holding steady a bit on the low side , waiting to follow up on AFB culture speciation to see if we are attempting to treat MAC vs TB . Hold of on HAART therapy for now while awaiting results for cryptococcal and AFB studies. will hold off Bactrim to avoid worsening keratin from nephrotoxicity and PJP is not a priority to treat at this time 2: Is breathing on room air and remains largely obtained but is still protecting his airway . lumbar puncture bacterial culture suggests that there is no acute concern for bacterial infection in the CSF . Plan for patient to stop Bactrim due to rising creatine and continue empirical therapy with linezolid and cefepime . will continue to follow up on AFB culture results 07/13: continues to feel lethargic and not really waking up but does respond to sternal rub and is protecting his airway . no neck ridgitiy . AFB cultures have return positive for microbacterial avium complex still awaiting AFB blood and stool to confirm disseminated MAC infection so for now continue linezolid and cefepime therapy in addition will add ethambutol and rifampin and azithromycin via Ngtube . Would recommend repeating EKG to monitor QTC in 5 days as well as check LTFs daily while on rifampin therapy 07/14: C diff testing is negative . renal function continues to worsen . patients altered mental staus is likely related to uremia , BUN of 75 , creatine of 4.39 , patient may require dialysis Plan discussed with: Other Dietary Evaluation Review Comments: 1. advance diet when medically feasible: Renal Sepcific 40g Protein restriction diet, supplement his protein needs with clinimix @ 41ml/hr (42.5 gPro 510 kcal) 2. TPN per pharmacy if NPO > 7 days Expected Outcomes/Goals: gradual wt gain, improved nutrition status. grdual healed wounds. JONO CAPUTO MD Jul 15, 2024 23:24
[2024-07-16] VITALS (24 sets, daily range): BP systolic 102–132; BP diastolic 64–89; PULSE 100–135; RESP 11–20; TEMP 97.4–98.4; O2SAT 97–100
[2024-07-16 08:57] LABS: Hematocrit 23.3 % (41.0-53.0); Mean Corpuscular Hemoglobin 27.7 pg (28.0-32.0); Mean Corpuscular Hgb Conc. 34.3 g/dL (32.0-36.0); Mean Corpuscular Volume 80.7 fL (80.0-100.0); Platelet Count (auto) 342 10^3/uL (140-450); Red Blood Cells 2.89 10^6/uL (4.5-5.90); Red Cell Distribution Width 20.3 % (11.8-14.3); White Blood Cell 10.1 10^3/uL (4.4-10.8)
[2024-07-16 09:04] LABS: Basophils % (manual) 0 (0.0-2.0); Blast Cells 0; Eosinophils % (manual) 0 (0-7); Myelocytes % 0; Promyelocytes % 0; Reactive Lymphocytes 0
[2024-07-16 09:12] LABS: Alanine Aminotransferase 23 U/L (7-40); Albumin 2.8 g/dL (3.2-4.8); Alkaline Phosphatase 271 U/L (46-116); Anion Gap 13 (5-15); Aspartate Aminotransferase 24 U/L (13-40); BUN/Creatinine Ratio 14.3 (10.0-20.0); Blood Urea Nitrogen 66 mg/dL (9-23); Calcium 8.3 mg/dL (8.7-10.4); Carbon Dioxide 14 mmol/L (20-31); Chloride 107 mmol/L (98-107); Glucose 107 mg/dL (74-106); Magnesium 2.1 mg/dL (1.6-2.6); Potassium 2.7 mmol/L (3.5-5.1); Sodium 134 mmol/L (136-145)
[2024-07-16 09:13] LABS: Bilirubin, Total 1.9 mg/dL (0.2-1.0); Phosphorus 2.3 mg/dL (2.4-5.1); Total Protein 5.4 g/dL (5.7-8.2)
[2024-07-16] MEDS: POTASSIUM PHOSPHATE 44 MEQ in D5W 5% 250 ML IV ONE (09:30)
[2024-07-16 10:47] LABS: Band Neutrophils % (manual) 12; Lymphocytes % (manual) 4 (10.0-50.0); Metamyelocytes % 2; Monocytes % (manual) 15 (0-12)
[2024-07-16 10:48] LABS: Anisocytosis Moderate; Platelet Estimate Adequate
[2024-07-16] MEDS: SODIUM BICARB 50mEq/50ml Vial 100 ML in SOD CHL 0.45% 1,000 ML IV SCH (11:15)
--- NOTE | 2024-07-16 11:28 | DVHPN2 ---
Progress Note Date Seen: Jul 16, 2024 Has the PT tested + for MRSA If YES, has PT been informed?: Yes Medical Necessity Reason Pt with a Central, PICC or Fol: Yes The following are medically ne: Chua Catheter Reason for chua catheter: Strict I&O Subjective Review of Systems: GI:Abnormal Other Systems: Patient seen and examined by myself today in follow-up Objective vital signs Vital Sign Date Time Temp Pulse Resp B/P (MAP) Pulse Ox O2 Delivery O2 Flow Rate FiO2 07/16/24 10:00 113 07/16/24 09:00 12 115/75 (88) 100 07/16/24 08:00 Room Air* 0 21 07/16/24 08:00 97.4 97.4 Total Intake and Output 07/15/24 07/15/24 07/16/24 14:59 22:59 06:59 Intake Total 1128 ml 778 ml 1180 ml Output Total 600 ml 1300 ml Balance 1128 ml 178 ml -120 ml medications Current Medications Medications Dose Ordered Sig/Sean Route Start Time Stop Time Status Last Admin Dose Admin Guaifenesin/ Dextromethorphan 10 ml Q4HP PRN PO 06/08/24 11:00 07/10/24 01:48 10 ML Morphine Sulfate 1 mg Q4HPRN PRN IV 06/16/24 14:00 07/16/24 05:50 1 MG Ondansetron HCl 4 mg Q4HP PRN IV 06/21/24 16:00 07/16/24 02:15 4 MG Nystatin 5 ml QID MT 06/27/24 12:00 07/16/24 05:47 5 ML Pantoprazole Sodium 40 mg DAILY@0600 PO 06/29/24 06:00 07/15/24 06:01 40 MG Ursodiol 300 mg BID PO 06/28/24 22:00 07/16/24 10:21 300 MG Morphine Sulfate 2 mg Q4HPRN PRN IV 06/29/24 16:45 Docusate Sodium 200 mg DAILYPRN PRN PO 07/02/24 14:30 Artificial Tears 1 drop Q6HP PRN EACHEYE 07/03/24 14:00 07/04/24 05:19 1 DROP Acetaminophen 650 mg Q6HP PRN PO 07/07/24 17:30 07/10/24 16:30 650 MG Linezolid 300 ml @ 150 mls/hr Q12HR IV 07/11/24 22:00 07/16/24 10:21 150 MLS/HR Metoclopramide HCl 5 mg Q8HPRN PRN IV 07/12/24 12:00 Cefepime HCl 50 ml @ 12.5 mls/hr Q24H IV 07/13/24 12:00 07/15/24 12:00 12.5 MLS/HR Diagnostic Test (Pha) 1 strip Q6HR 07/12/24 18:00 07/16/24 05:28 1 STRIP Insulin Human Regular FOLLOW SLIDING SCALE Q6HR SC 07/12/24 18:00 07/15/24 17:39 2 UNITS Dextrose 50 ml UD IV 07/12/24 17:45 Levetiracetam 100 ml @ 400 mls/hr BID IV 07/12/24 22:00 07/16/24 09:30 400 MLS/HR Lorazepam 1 mg Q5MINP PRN IV 07/12/24 21:15 07/16/24 03:50 1 MG Azithromycin 250 ml @ 125 mls/hr DAILY@1800 IV 07/14/24 18:00 07/15/24 18:23 125 MLS/HR Rifampin 600 mg DAILY@2100 GT 07/13/24 21:00 07/14/24 21:22 600 MG Ethambutol HCl 800 mg MWF GT 07/13/24 21:00 07/16/24 10:20 800 MG Phenytoin Sodium 100 mg Q8HR IV 07/14/24 06:00 07/16/24 05:46 100 MG Amino Acids 0 ml @ 0 mls/hr PER PHARMACY IV 07/15/24 22:00 Multivitamins 10 ml/Amino Acids/ Dextrose/Purified Water 1,210 ml @ 50 mls/hr [id number] IV 07/15/24 22:00 07/16/24 21:59 07/15/24 21:18 50 MLS/HR Sodium Bicarbonate 150 ml/Dextrose 1,150 ml @ 70 mls/hr [id number] IV 07/15/24 18:45 07/15/24 21:14 70 MLS/HR Albumin Human 50 ml @ 100 mls/hr Q12HR IV 07/16/24 22:00 07/18/24 10:29 UNV Sodium Bicarbonate 100 ml/Sodium Chloride 1,100 ml @ 100 mls/hr Q11H IV 07/16/24 11:15 UNV Examination: LUNGS:Normal, CVS:Normal, MSK:Normal laboratory and microbiology Laboratory Tests 07/16/24 08:32 Test 07/16/24 08:32 Range/Units Serum Glucose 107 H 74-106 mg/dL Microbiology Date/Time Source Procedure Growth Status 07/13/24 11:38 Stool Clostridium difficile Toxin Assay - Final Complete 07/13/24 07:50 Blood Blood Culture - Preliminary NO GROWTH AFTER 72 HOURS OF INCUBATION. Resulted 07/12/24 20:25 Nose MRSA Screen - Final Complete 07/11/24 19:32 Cerebral Spinal Fluid Gram Stain - Final Resulted 07/11/24 19:32 Cerebral Spinal Fluid CSF Culture & Gram Stain (Tube 2) M - Preliminary Resulted 07/11/24 14:54 Voided Urine Urine Culture - Final Complete 07/07/24 06:10 Sputum Gram Stain - Final Complete 07/07/24 06:10 Respiratory Culture - Final Staphylococcus aureus Complete Problem List/Assessment/Plan Problem List/Assessment/Plan Acute kidney injury secondary hemodynamic mediated ATN, feNa > 2% nonoliguric Creatinine was 0.6 on 07/09/2024 Hyponatremia likely secondary to SIADH aggravated by IV hypotonic solution Syndrome of inappropriate antidiuretic hormone secretion Hypokalemia Diarrhea Metabolic acidosis AIDS Jaundice Transaminitis Hypoalbuminemia PCP on bactrim IV now switched to p.o. PNA Anemia due to blood loss status post packed red blood cell transfusion Recommendations Kidney function slightly worsened today Increased urine output KCL replacement IVF with 1/2 NS 100 mEq sodium bicarb at 100 cc/hour KCL replacement Albumin 25% IV piggyback Kidney ultrasound reported bilateral echogenic kidney ID consult will continue to follow Plan discussed with: Other (Nurse) My Orders My Orders Orders - YONATHAN YAÑEZ MD Procedure Category Date Status Time Potassium Chl PHA 07/16/24 In Process 20meq/100ml 11:00 Communication Order ORDERS 07/16/24 Transmitted 10:58 Albumin 25% (Albutein) PHA 07/16/24 Logged 22:00 Urinalysis LAB 07/16/24 Logged 10:58 Urine Sodium LAB 07/16/24 Logged 10:58 Urine Creatinine LAB 07/16/24 Logged 10:58 Urine LAB 2/10/25 Logged Protein/Creatinine Creatine Kinase LAB 07/16/24 Logged 10:58 Sod Chl 0.45% PHA 07/16/24 Logged (Sodi... W/Sodium 11:15 Dietary Evaluation Review Comments: 1. advance diet when medically feasible: Renal Sepcific 40g Protein restriction diet, supplement his protein needs with clinimix @ 41ml/hr (42.5 gPro 510 kcal) 2. TPN per pharmacy if NPO > 7 days Expected Outcomes/Goals: gradual wt gain, improved nutrition status. grdual healed wounds. YONATHAN YAÑEZ MD Jul 16, 2024 11:28
[2024-07-16] MEDS: MORPHINE SULFATE INJ 2 MG/ml SYRG IV PRN (12:38)
--- NOTE | 2024-07-16 13:48 | DVHPNRES ---
Progress Note Date Seen: Jul 16, 2024 Resident Creating Document: CESAR LIRIANO RESIDENT Has the PT tested + for MRSA If YES, has PT been informed?: Yes Medical Necessity Reason Pt with a Central, PICC or Fol: Yes The following are medically ne: Chua Catheter Reason for hcua catheter: Strict I&O Medical Necessity Reason Overall patient looks sick, mild improvement in mentation, no further seizures, remains in the room air, on NG tube, remains in the [facility] Subjective Patient reports: No new complaints Objective vital signs Vital Sign Date Time Temp Pulse Resp B/P (MAP) Pulse Ox O2 Delivery O2 Flow Rate FiO2 07/16/24 13:08 102 14 114/67 07/16/24 13:00 99 07/16/24 12:00 97.6 97.6 07/16/24 08:00 Room Air* 0 21 Total Intake and Output 07/15/24 07/15/24 07/16/24 15:00 23:00 07:00 Intake Total 1078 ml 787 ml 1250 ml Output Total 600 ml 1300 ml Balance 1078 ml 187 ml -50 ml medications Current Medications Medications Dose Ordered Sig/Sean Route Start Time Stop Time Status Last Admin Dose Admin Guaifenesin/ Dextromethorphan 10 ml Q4HP PRN PO 06/08/24 11:00 07/10/24 01:48 10 ML Morphine Sulfate 1 mg Q4HPRN PRN IV 06/16/24 14:00 07/16/24 05:50 1 MG Ondansetron HCl 4 mg Q4HP PRN IV 06/21/24 16:00 07/16/24 02:15 4 MG Nystatin 5 ml QID MT 06/27/24 12:00 07/16/24 05:47 5 ML Pantoprazole Sodium 40 mg DAILY@0600 PO 06/29/24 06:00 07/15/24 06:01 40 MG Ursodiol 300 mg BID PO 06/28/24 22:00 07/16/24 10:21 300 MG Morphine Sulfate 2 mg Q4HPRN PRN IV 06/29/24 16:45 07/16/24 12:38 2 MG Docusate Sodium 200 mg DAILYPRN PRN PO 07/02/24 14:30 Artificial Tears 1 drop Q6HP PRN EACHEYE 07/03/24 14:00 07/04/24 05:19 1 DROP Acetaminophen 650 mg Q6HP PRN PO 07/07/24 17:30 07/10/24 16:30 650 MG Linezolid 300 ml @ 150 mls/hr Q12HR IV 07/11/24 22:00 07/16/24 10:21 150 MLS/HR Metoclopramide HCl 5 mg Q8HPRN PRN IV 07/12/24 12:00 Cefepime HCl 50 ml @ 12.5 mls/hr Q24H IV 07/13/24 12:00 07/16/24 12:20 12.5 MLS/HR Diagnostic Test (Pha) 1 strip Q6HR 07/12/24 18:00 07/16/24 11:34 1 STRIP Insulin Human Regular FOLLOW SLIDING SCALE Q6HR SC 07/12/24 18:00 07/15/24 17:39 2 UNITS Dextrose 50 ml UD IV 07/12/24 17:45 Levetiracetam 100 ml @ 400 mls/hr BID IV 07/12/24 22:00 07/16/24 09:30 400 MLS/HR Lorazepam 1 mg Q5MINP PRN IV 07/12/24 21:15 07/16/24 03:50 1 MG Azithromycin 250 ml @ 125 mls/hr DAILY@1800 IV 07/14/24 18:00 07/15/24 18:23 125 MLS/HR Rifampin 600 mg DAILY@2100 GT 07/13/24 21:00 07/14/24 21:22 600 MG Ethambutol HCl 800 mg MWF GT 07/13/24 21:00 07/16/24 10:20 800 MG Phenytoin Sodium 100 mg Q8HR IV 07/14/24 06:00 07/16/24 05:46 100 MG Amino Acids 0 ml @ 0 mls/hr PER PHARMACY IV 07/15/24 22:00 Multivitamins 10 ml/Amino Acids/ Dextrose/Purified Water 1,210 ml @ 50 mls/hr [id number] IV 07/15/24 22:00 07/16/24 21:59 07/15/24 21:18 50 MLS/HR Albumin Human 50 ml @ 100 mls/hr Q12HR IV 07/16/24 22:00 07/18/24 10:29 Sodium Bicarbonate 100 ml/Sodium Chloride 1,100 ml @ 100 mls/hr Q11H IV 07/16/24 11:15 07/16/24 11:15 100 MLS/HR Fat Emulsion Intravenous 50 ml/ Sodium Acetate 40 meq/Sodium Phosphate 40 meq/ Potassium Acetate 60 meq/Magnesium Sulfate 8 meq/ Multivitamins 10 ml/Amino Acids/ Dextrose/Purified Water 1,522 ml @ 63 mls/hr [id number] IV 07/16/24 22:00 07/17/24 21:59 Examination: GENERAL:Normal (Looks sick), HEENT:Normal (Oral mucosa dry and cracked , chelitis. ), NECK:Normal, LUNGS:Abnormal (Bilateral basal rales likely due to atelectasis), CVS:Normal (Blood pressure well controlled with the MAP over 65.), ABDOMEN:Normal, MSK:Abnormal (Low muscle mass), SKIN:Abnormal (Low skin turgor), NEURO:Abnormal (Alert but not oriented responding sparsely to verbal stimuli and pain), :Abnormal (And retract tube still having brown loose stool) laboratory and microbiology Laboratory Tests 07/16/24 12:55 07/16/24 08:32 Test 07/16/24 08:32 Range/Units Serum Glucose 107 H 74-106 mg/dL Microbiology Date/Time Source Procedure Growth Status 07/13/24 11:38 Stool Clostridium difficile Toxin Assay - Final Complete 07/13/24 07:50 Blood Blood Culture - Preliminary NO GROWTH AFTER 72 HOURS OF INCUBATION. Resulted 07/12/24 20:25 Nose MRSA Screen - Final Complete 07/11/24 19:32 Cerebral Spinal Fluid Gram Stain - Final Resulted 07/11/24 19:32 Cerebral Spinal Fluid CSF Culture & Gram Stain (Tube 2) M - Preliminary Resulted 07/11/24 14:54 Voided Urine Urine Culture - Final Complete 07/07/24 06:10 Sputum Gram Stain - Final Complete 07/07/24 06:10 Respiratory Culture - Final Staphylococcus aureus Complete Labs and/or images reviewed: Labs reviewed by me, Image(s) reviewed by me Problem List/Assessment/Plan Problem List/Assessment/Plan ICU Course: A 28-year-old homosexual male patient; who was recently diagnosed with HIV, not on treatment; who presented with cough to [facility] and was transferred to [facility] for further evaluation and treatment. He has a history of homosexual activity presents with suspected sepsis, acute hypoxic respiratory failure, and bilateral pneumonia, possibly due to atypical infections. They have a productive cough, fever, tachycardia, and decreased oxygen saturation. The patient is on IV antibiotics, oxygen therapy, and nebulizer treatments, with close monitoring and consultations from infectious disease, nephrology and pulmonology teams. Additional concerns include normocytic anemia, elevated liver enzymes, mild hyponatremia, and an elevated D-dimer, with a chest angiogram ordered to rule out DVT. Denies any prior EGD or colonoscopy, family history negative for any GI malignancy. Having recurrent diarrhea. Patient has full-blown AIDS with multiple infections possibly night now having encephalopathy with meningitis. Hospitalization day: A. Neurolgy: #Metabolic encephalopathy due to sepsis/?meningitis: Head CT unremarkable, patient is more arousable #?Seizure due to ?Meningitis: Head CT unremarkable, CSF pointing towards viral meningitis likely, neurology on board continue IV Keppra p.r.n. ID on board, continue antibiotics, consider antiviral B. Cardiology: # septic shock: Due to multiple opportunity seeing infections: Off of vasopressor maintaining map over 65, IV fluids as needed C. Respiratory: # acute hypoxic respiratory failure: Recovered # Pneumocystis jiroveci multifocal pneumonia: partially treated likely improve patient is on room air. # Multifocal pneumonia, Pneumocystis Jerovoci or Carini Pneumonia ( opportunistic infection) # Pulmonary nodule, 2 cm in size, accidental finding D. Gastrointenstinal: #Transaminitis with elevated bilirubin ?cholangiopathy/medication induced: Improved, continue oral Actigall # antibiotic associated diarrhea: Due to immunocompromised state can not start patient on Florastor patient continues to have greenish liquid stool. C diff toxin negative. Check stool parasite n ova # nutrition: Patient is on enteral nutrition, we will consider further supplementation as per GI when patient has a PICC line E. Geniotourinary: # UTI Enterococcus faecalis status post ampicillin stopped by ID F. Infectious Disease: # leukopenia with neutropenic fever ?likely due to sepsis #oral candidiasis: Can not tolerate change to fluconazole #AIDS, CD4 count less than 10: Outpatient started on Biktarvy #Acid-fast bacilli culture positive likely MAC infection: Patient on antibiotics, continue ID on board. Rifampin, ethambutol to continue #Pneumocystis Jerovoci or Carini Pneumonia ( opportunistic infection): Partially treated. # respiratory culture positive for G. Hematology & Oncology: # microcytic anemia, Severe, requiring blood transfusion: Status post 1 unit PRBC H. Nephrology: #VEL due to ?bacterim use: Close I&O patient is making urine, conservative management daily BNP nephrology on board continue IV fluids #Hyponatremia ?SIADH due to PCP pneumonia/bacterim improved #hypokalemia: Recurrent slowly correct hypokalemia with 40 IV potassium with repeat potassium check as kidney functions poor #Hyperkalemia: Previously corrected I. Endocrine: #Left adrenal nodule: Morning cortisol elevated on 07/10/2024 45.68 J. MSK: # mild to moderate malnutrition with loss of muscle mass K. Prophylaxis: PPI: Pantoprazole Oral DVT: SCDs L. Lines & Drains (with insertion date): NG tube IV lines infiltrated, removed PICC line pending today N. Disposition: Remains STELLA The plan was discussed with the ICU attending Dr. Pettit. The patient care consists of total 83 minutes of critical care time excluding the procedures. Dictated by Cesar Liriano MD with 3M MModal Fluency. Plan discussed with: Patient, Other Dietary Evaluation Review Comments: 1. advance diet when medically feasible: Renal Sepcific 40g Protein restriction diet, supplement his protein needs with clinimix @ 41ml/hr (42.5 gPro 510 kcal) 2. TPN per pharmacy if NPO > 7 days Expected Outcomes/Goals: gradual wt gain, improved nutrition status. grdual healed wounds. Date of Service: Jul 16, 2024 Billing Provider: ANDRE PETTIT MD Common Visit Codes: 67996-[id number] CARE 30-74 MIN, [id number] CARE-EACH +30MIN CESAR LIRIANO Jul 16, 2024 13:48 ANDRE PETTIT MD Jul 18, 2024 17:13
[2024-07-16] MEDS: POTASSIUM CHL 20MEQ/100ML 100 ML IV ONE (14:00)
--- NOTE | 2024-07-16 16:17 | DVHPNRES ---
Progress Note Date Seen: Jul 16, 2024 Resident Creating Document: ELVA SAEZ RESIDENT Has the PT tested + for MRSA If YES, has PT been informed?: Yes Medical Necessity Reason Pt with a Central, PICC or Fol: Yes The following are medically ne: Chua Catheter Reason for chua catheter: Strict I&O Subjective Review of Systems Patient seen and examined at bedside. Patient's mentation improving, opening eyes spontaneously, has appropriate motor function, however not responding to questions properly. Still somnolent. Head when episodes of vomiting early in the morning, 200 mL output. Physical Exam General Appearance: Altered, protecting his airway, responding to pain stimuli, reactive pupils, Head Exam: Normal inspection Neck Exam: Normal inspection. Non-tender. Normal alignment Pulmonary/Respiratory: Chest non-tender. Clear bilateral breath sounds Cardiovascular/Chest: Regular rate and rhythm. No murmurs. No JVD. Peripheral Pulses: 2+ Radial (R). 2+ Radial (L). 2+ Pedal (R). 2+ Pedal (L) Abdominal Exam: Normal bowel sounds. Soft. Nontender. No hepatospenomegaly. No masses Ankle Exam: Negative ankle edema Lower extremities: Negative lower extremity edema Neuro/Mental Status: Alert, not oriented to time place and person. Pupillary reflex present, upper and and lower extremity muscular strength 4/5. Sensory examination can not be done Objective vital signs Vital Sign Date Time Temp Pulse Resp B/P (MAP) Pulse Ox O2 Delivery O2 Flow Rate FiO2 07/16/24 16:00 112 11 106/69 (81) 99 07/16/24 12:00 97.6 97.6 07/16/24 08:00 Room Air* 0 21 Total Intake and Output 07/15/24 07/15/24 07/16/24 15:00 23:00 07:00 Intake Total 1078 ml 787 ml 1250 ml Output Total 600 ml 1300 ml Balance 1078 ml 187 ml -50 ml medications Current Medications Medications Dose Ordered Sig/Sean Route Start Time Stop Time Status Last Admin Dose Admin Guaifenesin/ Dextromethorphan 10 ml Q4HP PRN PO 06/08/24 11:00 07/10/24 01:48 10 ML Morphine Sulfate 1 mg Q4HPRN PRN IV 06/16/24 14:00 07/16/24 05:50 1 MG Ondansetron HCl 4 mg Q4HP PRN IV 06/21/24 16:00 07/16/24 02:15 4 MG Nystatin 5 ml QID MT 06/27/24 12:00 07/16/24 05:47 5 ML Pantoprazole Sodium 40 mg DAILY@0600 PO 06/29/24 06:00 07/15/24 06:01 40 MG Ursodiol 300 mg BID PO 06/28/24 22:00 07/16/24 10:21 300 MG Morphine Sulfate 2 mg Q4HPRN PRN IV 06/29/24 16:45 07/16/24 12:38 2 MG Docusate Sodium 200 mg DAILYPRN PRN PO 07/02/24 14:30 Artificial Tears 1 drop Q6HP PRN EACHEYE 07/03/24 14:00 07/04/24 05:19 1 DROP Acetaminophen 650 mg Q6HP PRN PO 07/07/24 17:30 07/10/24 16:30 650 MG Linezolid 300 ml @ 150 mls/hr Q12HR IV 07/11/24 22:00 07/16/24 10:21 150 MLS/HR Metoclopramide HCl 5 mg Q8HPRN PRN IV 07/12/24 12:00 Diagnostic Test (Pha) 1 strip Q6HR 07/12/24 18:00 07/16/24 11:34 1 STRIP Insulin Human Regular FOLLOW SLIDING SCALE Q6HR SC 07/12/24 18:00 07/15/24 17:39 2 UNITS Dextrose 50 ml UD IV 07/12/24 17:45 Levetiracetam 100 ml @ 400 mls/hr BID IV 07/12/24 22:00 07/16/24 09:30 400 MLS/HR Lorazepam 1 mg Q5MINP PRN IV 07/12/24 21:15 07/16/24 03:50 1 MG Azithromycin 250 ml @ 125 mls/hr DAILY@1800 IV 07/14/24 18:00 07/15/24 18:23 125 MLS/HR Rifampin 600 mg DAILY@2100 GT 07/13/24 21:00 07/14/24 21:22 600 MG Ethambutol HCl 800 mg MWF GT 07/13/24 21:00 07/16/24 10:20 800 MG Phenytoin Sodium 100 mg Q8HR IV 07/14/24 06:00 07/16/24 14:28 100 MG Amino Acids 0 ml @ 0 mls/hr PER PHARMACY IV 07/15/24 22:00 Multivitamins 10 ml/Amino Acids/ Dextrose/Purified Water 1,210 ml @ 50 mls/hr [id number] IV 07/15/24 22:00 07/16/24 21:59 07/15/24 21:18 50 MLS/HR Albumin Human 50 ml @ 100 mls/hr Q12HR IV 07/16/24 22:00 07/18/24 10:29 Sodium Bicarbonate 100 ml/Sodium Chloride 1,100 ml @ 100 mls/hr Q11H IV 07/16/24 11:15 07/16/24 11:15 100 MLS/HR Fat Emulsion Intravenous 50 ml/ Sodium Acetate 40 meq/Sodium Phosphate 40 meq/ Potassium Acetate 60 meq/Magnesium Sulfate 8 meq/ Multivitamins 10 ml/Amino Acids/ Dextrose/Purified Water 1,522 ml @ 63 mls/hr [id number] IV 07/16/24 22:00 07/17/24 21:59 laboratory and microbiology Laboratory Tests 07/16/24 12:55 07/16/24 08:32 Test 07/16/24 08:32 Range/Units Serum Glucose 107 H 74-106 mg/dL Microbiology Date/Time Source Procedure Growth Status 07/13/24 11:38 Stool Clostridium difficile Toxin Assay - Final Complete 07/13/24 07:50 Blood Blood Culture - Preliminary NO GROWTH AFTER 72 HOURS OF INCUBATION. Resulted 07/12/24 20:25 Nose MRSA Screen - Final Complete 07/11/24 19:32 Cerebral Spinal Fluid Gram Stain - Final Resulted 07/11/24 19:32 Cerebral Spinal Fluid CSF Culture & Gram Stain (Tube 2) M - Preliminary Resulted 07/11/24 14:54 Voided Urine Urine Culture - Final Complete 07/07/24 06:10 Sputum Gram Stain - Final Complete 07/07/24 06:10 Respiratory Culture - Final Staphylococcus aureus Complete Problem List/Assessment/Plan Problem List/Assessment/Plan Pneumocystis Jerovoci or Carini Pneumonia ( opportunistic infection) AIDS, CD4 count less than 10 Acid-fast bacilli culture positive , Mycobacterium avium complex infection Neutropenic fever UTI Enterococcus faecalis Multifocal pneumonia Septic shock due to pneumonia: Currently off vasopressor Transaminitis with elevated bilirubin ? Age cholangiopathy/medication induced Hyponatremia likely due to SIADH Pulmonary nodule, 2 cm in size Left adrenal nodule Severe anemia Immunosuppressed Homosexual Seizure Plan/recommendation Dr. Robins -currently on PPN, patient will be started on TPN today. -correct electrolytes including potassium: As per hospitalist/nephrology team recommendation. -patient recently diagnosed with MAC infection, HIV, PCP pneumonia. antibiotics as per ID recommendation. Currently on rifampin ethambutol and azithromycin. Continue following liver function tests. -liver function tests continuously trending down. -GI will be standing by in case for any acute need for GI intervention. -prognosis remained guarded. -PUD prophylaxis with Protonix 40 mg p.o. daily. Plan discussed with: Other (RN) Dietary Evaluation Review Comments: 1. advance diet when medically feasible: Renal Sepcific 40g Protein restriction diet, supplement his protein needs with clinimix @ 41ml/hr (42.5 gPro 510 kcal) 2. TPN per pharmacy if NPO > 7 days Expected Outcomes/Goals: gradual wt gain, improved nutrition status. grdual healed wounds. ELVA SAEZ RESIDENT Jul 16, 2024 16:17
[2024-07-16] MEDS: POTASSIUM CHL 20MEQ/100ML 100 ML IV SCH ×2 (16:30→23:03)
[2024-07-16 17:06] LABS: CAP Mandated Reflex to Culture Not Indicated (.); Cryptococcus Antigen CSF Negative (Negative)
[2024-07-16] MEDS: FLUCONAZOLE 200MG/100ML 100 ML IV ONE (17:30)
[2024-07-16 18:37] LABS: INR 1.05 (0.9-1.15); Partial Thromboplastin Time 31.2 SEC (24.5-34.5); Prothrombin Time 11.1 sec (9.3-11.8)
--- NOTE | 2024-07-16 21:07 | DVHPN2 ---
Progress Note - Dictate Date Seen: Jul 16, 2024 Has the PT tested + for MRSA If YES, has PT been informed?: Yes Medical Necessity Reason Pt with a Central, PICC or Fol: Yes The following are medically ne: Chua Catheter Reason for chua catheter: Strict I&O Subjective PATIENT DOES NOT WANT ANY INFORMATION SHARED 07/13/24 Re-Assessment Re: HIGINIO HUANG spoke with patient uncle Blaine ([phone]) in regards to patients wishes when he was a/ox4. Per patient he did not want any family to be provided with any medical information. Since patient is unable to make any medical decisions at that moment, who will make any medical decisions would have to be determined. Substance Abuse Services Director will be consulted. Per patients Uncle patient has no Next of Kin, last remaining member of his immediate family. On 07/15/24, his nurse told me that I could talk to his uncle and friend, Aleena Moss is a 28 years old gentleman with a history of HIV/aids, he was transferred from the [facility] on 06/08/2024 for further evaluation treatment. On 07/11/24, he had seizure-like activity however his nurse and medical staff did not witnessed symptoms. I have seen and examined the patient, I have talked to his nurse, he was awake, eyes moving from [id number], but he does not respond to my verbal commands or stimuli No seizure activity today Phenytoin, 07/14/2019 5:15.7 (Alb: 2.8) CSF, 07/11/2024: RBC: Five, protein: 46 found eight, glucose: 49 UDS, 06/26/2024: Opiates Plasma alcohol, 06/25/2024: Normal Urinalysis, 07/17/2024: WBC: Negative, urine leukocyte esterase: Negative WBC/HB/PLT/MCV, 07/12/2024: 4.4/6.4/331/78 0.1 PT/INR/PTT, 06/15/2024: 0.2/35/29/112, 06/12/2024: 11.1/1.06/29.3 Na, 06/08/2024: 136, 06/15/24:129, 06/20/24: 122, 06/24/2024: 117, 06/25 06/30: 121, 07/03/2024: 120, 07/06/2024: 123, 07/12/24: 132 BUN/CR, 07/02/2024: 15/0.49 07/12/2024: 68/4.30 TBI/AST/ALT/AP, 06/24/2024: 4.10/2515/1321/482, 07/02/2024: 9.8/71/196/710, 07/12/2024: 3.2/79/50/395 EEG, 07/13/2024: Electrographic status epileptics CT head, 07/11/2024: No acute intracranial process. MRI head, 07/06/2024: No acute cardiopulmonary disease. vital signs Vital Sign Date Time Temp Pulse Resp B/P (MAP) Pulse Ox O2 Delivery O2 Flow Rate FiO2 07/16/24 19:00 120 13 121/82 (95) 98 07/16/24 16:00 98.4 98.4 07/16/24 08:00 Room Air* 0 21 Total Intake and Output 07/15/24 07/15/24 07/16/24 15:00 23:00 07:00 Intake Total 1078 ml 787 ml 1250 ml Output Total 600 ml 1300 ml Balance 1078 ml 187 ml -50 ml medications Current Medications Medications Dose Ordered Sig/Sean Route Start Time Stop Time Status Last Admin Dose Admin Guaifenesin/ Dextromethorphan 10 ml Q4HP PRN PO 06/08/24 11:00 07/10/24 01:48 10 ML Morphine Sulfate 1 mg Q4HPRN PRN IV 06/16/24 14:00 07/16/24 05:50 1 MG Ondansetron HCl 4 mg Q4HP PRN IV 06/21/24 16:00 07/16/24 18:13 4 MG Nystatin 5 ml QID MT 06/27/24 12:00 07/16/24 05:47 5 ML Pantoprazole Sodium 40 mg DAILY@0600 PO 06/29/24 06:00 07/15/24 06:01 40 MG Ursodiol 300 mg BID PO 06/28/24 22:00 07/16/24 10:21 300 MG Morphine Sulfate 2 mg Q4HPRN PRN IV 06/29/24 16:45 07/16/24 12:38 2 MG Docusate Sodium 200 mg DAILYPRN PRN PO 07/02/24 14:30 Artificial Tears 1 drop Q6HP PRN EACHEYE 07/03/24 14:00 07/04/24 05:19 1 DROP Acetaminophen 650 mg Q6HP PRN PO 07/07/24 17:30 07/10/24 16:30 650 MG Linezolid 300 ml @ 150 mls/hr Q12HR IV 07/11/24 22:00 07/16/24 10:21 150 MLS/HR Metoclopramide HCl 5 mg Q8HPRN PRN IV 07/12/24 12:00 Diagnostic Test (Pha) 1 strip Q6HR 07/12/24 18:00 07/16/24 17:57 1 STRIP Insulin Human Regular FOLLOW SLIDING SCALE Q6HR SC 07/12/24 18:00 07/15/24 17:39 2 UNITS Dextrose 50 ml UD IV 07/12/24 17:45 Levetiracetam 100 ml @ 400 mls/hr BID IV 07/12/24 22:00 07/16/24 09:30 400 MLS/HR Lorazepam 1 mg Q5MINP PRN IV 07/12/24 21:15 07/16/24 03:50 1 MG Azithromycin 250 ml @ 125 mls/hr DAILY@1800 IV 07/14/24 18:00 07/16/24 18:13 125 MLS/HR Rifampin 600 mg DAILY@2100 GT 07/13/24 21:00 07/16/24 20:53 600 MG Ethambutol HCl 800 mg MWF GT 07/13/24 21:00 07/16/24 10:20 800 MG Phenytoin Sodium 100 mg Q8HR IV 07/14/24 06:00 07/16/24 14:28 100 MG Amino Acids 0 ml @ 0 mls/hr PER PHARMACY IV 07/15/24 22:00 Multivitamins 10 ml/Amino Acids/ Dextrose/Purified Water 1,210 ml @ 50 mls/hr [id number] IV 07/15/24 22:00 07/16/24 21:59 07/15/24 21:18 50 MLS/HR Albumin Human 50 ml @ 100 mls/hr Q12HR IV 07/16/24 22:00 07/18/24 10:29 Sodium Bicarbonate 100 ml/Sodium Chloride 1,100 ml @ 100 mls/hr Q11H IV 07/16/24 11:15 07/16/24 11:15 100 MLS/HR Fat Emulsion Intravenous 50 ml/ Sodium Acetate 40 meq/Sodium Phosphate 40 meq/ Potassium Acetate 60 meq/Magnesium Sulfate 8 meq/ Multivitamins 10 ml/Amino Acids/ Dextrose/Purified Water 1,522 ml @ 63 mls/hr [id number] IV 07/16/24 22:00 07/17/24 21:59 Fluconazole 100 ml @ 100 mls/hr DAILY IV 07/17/24 10:00 objective General: the patient is well developed and nourished. No acute distress. MENTAL STATUS: Subjective SPEECH, LANGUAGE, HIGHER CORTICAL FUNCTION: Deferred CRANIAL NERVES: Pupils are equal, round and reactive. Eyes deviated to deviated to left side Facial muscles symmetrical and strength intact. SENSATION: Possibly responsive to painful stimuli MOTOR: Normal tone in the upper and lower extremity. Subjective REFLEXES: Deep tendon reflexes are symmetrical. No pathological reflexes. CEREBELLAR/COORDINATION: Deferred GAIT/STATION: deferred laboratory and microbiology Laboratory Tests 07/16/24 12:55 07/16/24 08:32 Test 07/16/24 08:32 Range/Units Serum Glucose 107 H 74-106 mg/dL Problem List Witnessed seizure-like activity Altered mental status Status epilepticus Metabolic encephalopathy Aids Anemia Leukopenia Kidney failure Elevated liver function tests Hyponatremia Assessment/Plan Monitoring Supportive treatment STELLA care Aerosol isolation Oxygen Respiratory support p.r.n. Stabilize vitals p.r.n. IV antibiotics Dilantin 100 mg IV Q 8 hours Keppra 1000 mg b.i.d. Ativan for seizure breakthrough TPN More recommendation per clinical course This medical document was created using an electronic medical record system with [employer] dictation system. Although this document has been carefully reviewed, there may still be some phonetic and typographical errors. These areas are purely typographical due to imperfections of the software programs, and do not reflect any compromise in the patient's medical care Prognosis poor, critical Dietary Evaluation Review Comments: 1. advance diet when medically feasible: Renal Sepcific 40g Protein restriction diet, supplement his protein needs with clinimix @ 41ml/hr (42.5 gPro 510 kcal) 2. TPN per pharmacy if NPO > 7 days Expected Outcomes/Goals: gradual wt gain, improved nutrition status. grdual healed wounds. Plan discussed with: Other Critical Care Time(min): 35 JEFFERY CHAVEZ MD Jul 16, 2024 21:07
[2024-07-16] MEDS: ALBUMIN 25% 50 ML IV SCH (21:24)
[2024-07-16] MEDS: METOCLOPRAMIDE HCL 5MG/ml INJ 2ml VIAL IV PRN (21:27)
[2024-07-17] VITALS (30 sets, daily range): BP systolic 98–135; BP diastolic 44–87; PULSE 93–133; RESP 10–19; TEMP 97.2–98.9; O2SAT 97–100
[2024-07-17] MEDS: PPN PER PHARMACY IV NR ×2 (01:00→21:31)
[2024-07-17 05:33] LABS: Hematocrit 21.8 % (41.0-53.0); Hemoglobin 7.5 g/dL (13.5-17.5); Mean Corpuscular Hemoglobin 27.7 pg (28.0-32.0); Mean Corpuscular Hgb Conc. 34.2 g/dL (32.0-36.0); Mean Corpuscular Volume 81.2 fL (80.0-100.0); Platelet Count (auto) 341 10^3/uL (140-450); Red Blood Cells 2.69 10^6/uL (4.5-5.90)
[2024-07-17 05:46] LABS: Alanine Aminotransferase 22 U/L (7-40); Anion Gap 11 (5-15); Aspartate Aminotransferase 38 U/L (13-40); BUN/Creatinine Ratio 15.3 (10.0-20.0); Chloride 106 mmol/L (98-107); Glucose 93 mg/dL (74-106); Magnesium 1.9 mg/dL (1.6-2.6); Phosphorus 2.5 mg/dL (2.4-5.1); Potassium 3.8 mmol/L (3.5-5.1)
[2024-07-17 05:53] LABS: Albumin 2.8 g/dL (3.2-4.8); Alkaline Phosphatase 264 U/L (46-116); Bilirubin, Total 1.9 mg/dL (0.2-1.0); Blood Urea Nitrogen 70 mg/dL (9-23); Calcium 8.5 mg/dL (8.7-10.4); Carbon Dioxide 16 mmol/L (20-31); Sodium 133 mmol/L (136-145); Total Protein 5.2 g/dL (5.7-8.2)
[2024-07-17 06:11] LABS: Red Cell Distribution Width 20.2 % (11.8-14.3)
[2024-07-17 06:13] LABS: Basophils % (manual) 0 (0.0-2.0); Blast Cells 0; Eosinophils % (manual) 0 (0-7); Myelocytes % 0; Promyelocytes % 0; Reactive Lymphocytes 0
[2024-07-17 07:15] LABS: Urine Bacteria FEW /hpf (None Seen); Urine Blood 1+ /uL (Negative); Urine Clarity Clear (Clear); Urine Color Light-Yellow (Yellow); Urine Protein, UAD 1+ (Negative); Urine Specific Gravity 1.009 (1.001-1.035); Urine Squamous Epithelial Cell FEW /hpf (<5); Urine Urobilinogen Normal (Negative); Urine WBC 8 /HPF (0-3); Urine pH 6.5 (5.0-9.0)
--- NOTE | 2024-07-17 08:36 | ECG ---
[facility] Test Date: 2024-07-16 Test Time: 15:44:03 Pat Name: FAWN PIERCE Department: Respiratoy Room: 0261D Gender: M Manager Mental Health: : 1995 Requested By: JONO CAPUTO Order Number: [id number] Reading MD: Carlos Cabrera Measurements Intervals [place] Rate: 124 P: 75 TN: 45 QRS: 93 QRSD: 108 T: 38 QT: 305 QTc: 438 Interpretive Statements Sinus tachycardia Borderline right axis deviation Baseline wander in lead(s) V1,V2 Electronically Signed On 07-19-2024 9:27:12 PST by Carlos Cabrera Please click the below link to view image of tracing.
[2024-07-17 08:55] LABS: Band Neutrophils % (manual) 7; Lymphocytes % (manual) 17 (10.0-50.0); Metamyelocytes % 2; Monocytes % (manual) 4 (0-12); Platelet Estimate Adequate
[2024-07-17] MEDS: FLUCONAZOLE 200MG/100ML 100 ML IV SCH (09:00)
--- NOTE | 2024-07-17 10:17 | DVHPN2 ---
Progress Note - Dictate Date Seen: Jul 17, 2024 Has the PT tested + for MRSA If YES, has PT been informed?: Yes Medical Necessity Reason Pt with a Central, PICC or Fol: Yes The following are medically ne: Chua Catheter Reason for chua catheter: Strict I&O Subjective PATIENT DOES NOT WANT ANY INFORMATION SHARED 07/13/24 Re-Assessment Re: HIGINIO HUANG spoke with patient uncle Blaine ([phone]) in regards to patients wishes when he was a/ox4. Per patient he did not want any family to be provided with any medical information. Since patient is unable to make any medical decisions at that moment, who will make any medical decisions would have to be determined. Group Leader [employer] will be consulted. Per patients Uncle patient has no Next of Kin, last remaining member of his immediate family. On 07/15/24, his nurse told me that I could talk to his uncle and friend, Aleena Moss is a 28 years old gentleman with a history of HIV/aids, he was transferred from the [facility] on 06/08/2024 for further evaluation treatment. On 07/11/24, he had seizure-like activity however his nurse and medical staff did not witnessed symptoms. I have seen and examined the patient, I have talked to his nurse, eyes are open, respond to light touch but not to voice. Eyes are in neutral position. No seizure activity reported but he did have elevated blood pressure, heart rate last night Phenytoin, 07/14/2024:15.7 (Alb: 2.8), 07/15/2024: 12.9 CSF, 07/11/2024: RBC: Five, protein: 46 found eight, glucose: 49 UDS, 06/26/2024: Opiates Plasma alcohol, 06/25/2024: Normal Urinalysis, 07/17/2024: WBC: Negative, urine leukocyte esterase: Negative WBC/HB/PLT/MCV, 07/12/2024: 4.4/6.4/331/78 0.1 PT/INR/PTT, 06/15/2024: 0.2/35/29/112, 06/12/2024: 11.1/1.06/29.3 Na, 06/08/2024: 136, 06/15/24:129, 06/20/24: 122, 06/24/2024: 117, 06/25 06/30: 121, 07/03/2024: 120, 07/06/2024: 123, 07/12/24: 132 BUN/CR, 07/02/2024: 15/0.49 07/12/2024: 68/4.30 TBI/AST/ALT/AP, 06/24/2024: 4.10/2515/1321/482, 07/02/2024: 9.8/71/196/710, 07/12/2024: 3.2/79/50/395 EEG, 07/13/2024: Electrographic status epileptics CT head, 07/11/2024: No acute intracranial process. MRI head, 07/06/2024: No acute cardiopulmonary disease. vital signs Vital Sign Date Time Temp Pulse Resp B/P (MAP) Pulse Ox O2 Delivery O2 Flow Rate FiO2 07/17/24 08:00 98.4 121 16 118/81 (93) 99 98.4 07/17/24 08:00 Room Air* 0 21 Total Intake and Output 07/16/24 07/16/24 07/17/24 15:00 23:00 07:00 Intake Total 960 ml 500 ml 1578 ml Output Total 785 ml 810 ml Balance 960 ml -285 ml 768 ml medications Current Medications Medications Dose Ordered Sig/Sean Route Start Time Stop Time Status Last Admin Dose Admin Guaifenesin/ Dextromethorphan 10 ml Q4HP PRN PO 06/08/24 11:00 07/10/24 01:48 10 ML Morphine Sulfate 1 mg Q4HPRN PRN IV 06/16/24 14:00 07/17/24 03:47 1 MG Ondansetron HCl 4 mg Q4HP PRN IV 06/21/24 16:00 07/16/24 18:13 4 MG Nystatin 5 ml QID MT 06/27/24 12:00 07/16/24 05:47 5 ML Pantoprazole Sodium 40 mg DAILY@0600 PO 06/29/24 06:00 07/15/24 06:01 40 MG Ursodiol 300 mg BID PO 06/28/24 22:00 07/16/24 21:20 300 MG Morphine Sulfate 2 mg Q4HPRN PRN IV 06/29/24 16:45 07/17/24 01:25 2 MG Docusate Sodium 200 mg DAILYPRN PRN PO 07/02/24 14:30 Artificial Tears 1 drop Q6HP PRN EACHEYE 07/03/24 14:00 07/04/24 05:19 1 DROP Acetaminophen 650 mg Q6HP PRN PO 07/07/24 17:30 07/10/24 16:30 650 MG Linezolid 300 ml @ 150 mls/hr Q12HR IV 07/11/24 22:00 07/16/24 21:49 150 MLS/HR Metoclopramide HCl 5 mg Q8HPRN PRN IV 07/12/24 12:00 07/16/24 21:27 5 MG Diagnostic Test (Pha) 1 strip Q6HR 07/12/24 18:00 07/17/24 05:07 1 STRIP Insulin Human Regular FOLLOW SLIDING SCALE Q6HR SC 07/12/24 18:00 07/15/24 17:39 2 UNITS Dextrose 50 ml UD IV 07/12/24 17:45 Levetiracetam 100 ml @ 400 mls/hr BID IV 07/12/24 22:00 07/16/24 21:47 400 MLS/HR Lorazepam 1 mg Q5MINP PRN IV 07/12/24 21:15 07/17/24 02:39 1 MG Azithromycin 250 ml @ 125 mls/hr DAILY@1800 IV 07/14/24 18:00 07/16/24 18:13 125 MLS/HR Rifampin 600 mg DAILY@2100 GT 07/13/24 21:00 07/16/24 20:53 600 MG Ethambutol HCl 800 mg MWF GT 07/13/24 21:00 07/16/24 10:20 800 MG Phenytoin Sodium 100 mg Q8HR IV 07/14/24 06:00 07/17/24 05:07 100 MG Amino Acids 0 ml @ 0 mls/hr PER PHARMACY IV 07/15/24 22:00 Albumin Human 50 ml @ 100 mls/hr Q12HR IV 07/16/24 22:00 07/18/24 10:29 07/17/24 08:05 100 MLS/HR Sodium Bicarbonate 100 ml/Sodium Chloride 1,100 ml @ 100 mls/hr Q11H IV 07/16/24 11:15 07/17/24 01:50 100 MLS/HR Fat Emulsion Intravenous 50 ml/ Sodium Acetate 40 meq/Sodium Phosphate 40 meq/ Potassium Acetate 60 meq/Magnesium Sulfate 8 meq/ Multivitamins 10 ml/Amino Acids/ Dextrose/Purified Water 1,522 ml @ 63 mls/hr [id number] IV 07/16/24 22:00 07/17/24 21:59 07/17/24 01:00 63 MLS/HR Fluconazole 100 ml @ 100 mls/hr DAILY IV 07/17/24 10:00 07/17/24 09:00 100 MLS/HR objective General: the patient is well developed and nourished. No acute distress. MENTAL STATUS: Subjective SPEECH, LANGUAGE, HIGHER CORTICAL FUNCTION: Deferred CRANIAL NERVES: Pupils are equal, round and reactive. There is conjugated eye more sometimes, no soft facial weakness SENSATION: Responds to light touch MOTOR: Normal tone in the upper and lower extremity. Subjective REFLEXES: Deep tendon reflexes are symmetrical. No pathological reflexes. CEREBELLAR/COORDINATION: Deferred GAIT/STATION: deferred laboratory and microbiology Laboratory Tests 07/17/24 04:45 Test 07/17/24 04:45 Range/Units Serum Glucose 93 74-106 mg/dL Problem List Witnessed seizure-like activity Altered mental status Status epilepticus Metabolic encephalopathy Aids Anemia Leukopenia Kidney failure Elevated liver function tests Hyponatremia Assessment/Plan Monitoring Supportive treatment STELLA care Aerosol isolation Oxygen Respiratory support p.r.n. Stabilize vitals p.r.n. IV antibiotics Dilantin 100 mg IV Q 8 hours Keppra 1000 mg b.i.d. Ativan for seizure breakthrough TPN More recommendation per clinical course This medical document was created using an electronic medical record system with [employer] dictation system. Although this document has been carefully reviewed, there may still be some phonetic and typographical errors. These areas are purely typographical due to imperfections of the software programs, and do not reflect any compromise in the patient's medical care Prognosis poor Dietary Evaluation Review Comments: 1. advance diet when medically feasible: Renal Sepcific 40g Protein restriction diet, supplement his protein needs with clinimix @ 41ml/hr (42.5 gPro 510 kcal) 2. TPN per pharmacy if NPO > 7 days Expected Outcomes/Goals: gradual wt gain, improved nutrition status. grdual healed wounds. Plan discussed with: Other JEFFERY CHAVEZ MD Jul 17, 2024 10:17
--- NOTE | 2024-07-17 12:55 | DVHPN2 ---
Progress Note Date Seen: Jul 17, 2024 Has the PT tested + for MRSA If YES, has PT been informed?: Yes Medical Necessity Reason Pt with a Central, PICC or Fol: Yes The following are medically ne: Chua Catheter Reason for chua catheter: Strict I&O Subjective Patient reports: No new complaints Review of Systems: NEURO:Abnormal (Patient seen) Other Systems: Patient seen and examined by myself today in follow-up Objective vital signs Vital Sign Date Time Temp Pulse Resp B/P (MAP) Pulse Ox O2 Delivery O2 Flow Rate FiO2 07/17/24 12:00 98.5 108 14 111/78 (89) 100 98.5 07/17/24 08:00 Room Air* 0 21 Total Intake and Output 07/16/24 07/16/24 07/17/24 15:00 23:00 07:00 Intake Total 960 ml 500 ml 1578 ml Output Total 785 ml 810 ml Balance 960 ml -285 ml 768 ml medications Current Medications Medications Dose Ordered Sig/Sean Route Start Time Stop Time Status Last Admin Dose Admin Guaifenesin/ Dextromethorphan 10 ml Q4HP PRN PO 06/08/24 11:00 07/10/24 01:48 10 ML Morphine Sulfate 1 mg Q4HPRN PRN IV 06/16/24 14:00 07/17/24 03:47 1 MG Ondansetron HCl 4 mg Q4HP PRN IV 06/21/24 16:00 07/16/24 18:13 4 MG Nystatin 5 ml QID MT 06/27/24 12:00 07/16/24 05:47 5 ML Pantoprazole Sodium 40 mg DAILY@0600 PO 06/29/24 06:00 07/15/24 06:01 40 MG Ursodiol 300 mg BID PO 06/28/24 22:00 07/17/24 10:00 300 MG Morphine Sulfate 2 mg Q4HPRN PRN IV 06/29/24 16:45 07/17/24 01:25 2 MG Docusate Sodium 200 mg DAILYPRN PRN PO 07/02/24 14:30 Artificial Tears 1 drop Q6HP PRN EACHEYE 07/03/24 14:00 07/04/24 05:19 1 DROP Acetaminophen 650 mg Q6HP PRN PO 07/07/24 17:30 07/10/24 16:30 650 MG Linezolid 300 ml @ 150 mls/hr Q12HR IV 07/11/24 22:00 07/17/24 10:00 150 MLS/HR Metoclopramide HCl 5 mg Q8HPRN PRN IV 07/12/24 12:00 07/16/24 21:27 5 MG Diagnostic Test (Pha) 1 strip Q6HR 07/12/24 18:00 07/17/24 05:07 1 STRIP Insulin Human Regular FOLLOW SLIDING SCALE Q6HR SC 07/12/24 18:00 07/15/24 17:39 2 UNITS Dextrose 50 ml UD IV 07/12/24 17:45 Levetiracetam 100 ml @ 400 mls/hr BID IV 07/12/24 22:00 07/17/24 10:00 400 MLS/HR Lorazepam 1 mg Q5MINP PRN IV 07/12/24 21:15 07/17/24 02:39 1 MG Azithromycin 250 ml @ 125 mls/hr DAILY@1800 IV 07/14/24 18:00 07/16/24 18:13 125 MLS/HR Rifampin 600 mg DAILY@2100 GT 07/13/24 21:00 07/16/24 20:53 600 MG Ethambutol HCl 800 mg MWF GT 07/13/24 21:00 07/16/24 10:20 800 MG Phenytoin Sodium 100 mg Q8HR IV 07/14/24 06:00 07/17/24 05:07 100 MG Amino Acids 0 ml @ 0 mls/hr PER PHARMACY IV 07/15/24 22:00 Albumin Human 50 ml @ 100 mls/hr Q12HR IV 07/16/24 22:00 07/18/24 10:29 07/17/24 08:05 100 MLS/HR Sodium Bicarbonate 100 ml/Sodium Chloride 1,100 ml @ 100 mls/hr Q11H IV 07/16/24 11:15 07/17/24 01:50 100 MLS/HR Fat Emulsion Intravenous 50 ml/ Sodium Acetate 40 meq/Sodium Phosphate 40 meq/ Potassium Acetate 60 meq/Magnesium Sulfate 8 meq/ Multivitamins 10 ml/Amino Acids/ Dextrose/Purified Water 1,522 ml @ 63 mls/hr [id number] IV 07/16/24 22:00 07/17/24 21:59 07/17/24 01:00 63 MLS/HR Fluconazole 100 ml @ 100 mls/hr DAILY IV 07/17/24 10:00 07/17/24 09:00 100 MLS/HR Fat Emulsion Intravenous 50 ml/ Sodium Acetate 50 meq/Sodium Phosphate 40 meq/ Potassium Acetate 50 meq/Magnesium Sulfate 10 meq/ Multivitamins 10 ml/Amino Acids/ Dextrose/Purified Water 1,722.5 ml @ 72 mls/hr [id number] IV 07/17/24 22:00 07/18/24 21:59 Examination: LUNGS:Normal, CVS:Normal, MSK:Normal laboratory and microbiology Laboratory Tests 07/17/24 04:45 Test 07/17/24 04:45 Range/Units Serum Glucose 93 74-106 mg/dL Microbiology Date/Time Source Procedure Growth Status 07/13/24 11:38 Stool Clostridium difficile Toxin Assay - Final Complete 07/13/24 07:50 Blood Blood Culture - Preliminary NO GROWTH AFTER 72 HOURS OF INCUBATION. Resulted 07/12/24 20:25 Nose MRSA Screen - Final Complete 07/11/24 19:32 Cerebral Spinal Fluid Gram Stain - Final Complete 07/11/24 19:32 Cerebral Spinal Fluid CSF Culture & Gram Stain (Tube 2) M - Final Complete 07/11/24 14:54 Voided Urine Urine Culture - Final Complete 07/07/24 06:10 Sputum Gram Stain - Final Complete 07/07/24 06:10 Respiratory Culture - Final Staphylococcus aureus Complete Problem List/Assessment/Plan Problem List/Assessment/Plan Acute kidney injury secondary hemodynamic mediated ATN, feNa > 2% nonoliguric Creatinine was 0.6 on 07/09/2024 Hyponatremia secondary to excess H2O Hypokalemia Diarrhea Metabolic acidosis Seizures Encephalopathy AIDS Jaundice Transaminitis Hypoalbuminemia PCP on bactrim IV now switched to p.o. PNA Anemia due to blood loss status post packed red blood cell transfusion Recommendations Kidney function slightly worsened today Increased urine output KCL replacement IVF with 1/2 NS 100 mEq sodium bicarb at 100 cc/hour KCL replacement Albumin 25% IV piggyback Kidney ultrasound reported bilateral echogenic kidney ID consult will continue to follow Plan discussed with: Other (Nurse) Dietary Evaluation Review Comments: 1. advance diet when medically feasible: Renal Sepcific 40g Protein restriction diet, supplement his protein needs with clinimix @ 41ml/hr (42.5 gPro 510 kcal) 2. TPN per pharmacy if NPO > 7 days Expected Outcomes/Goals: gradual wt gain, improved nutrition status. grdual healed wounds. YONATHAN YAÑEZ MD Jul 17, 2024 12:55
[2024-07-17] MEDS: LIDOCAINE 1% (LOCAL ANESTH.) PF 5ml SDV ID ONE (15:05)
--- NOTE | 2024-07-17 15:50 | DVHPNRES ---
Progress Note Date Seen: Jul 17, 2024 Resident Creating Document: ELVA SAEZ RESIDENT Has the PT tested + for MRSA If YES, has PT been informed?: Yes Medical Necessity Reason Pt with a Central, PICC or Fol: Yes The following are medically ne: Chua Catheter Reason for chua catheter: Strict I&O Subjective Review of Systems Patient seen and examined at bedside. Patient continued to have poor mentation with GCS approximately 9-10. Still somnolent. Presence of NG tube. We will receive nutrition TPN via PICC line . Currently receiving PPN via midline. Physical Exam General Appearance: Altered, protecting his airway, responding to pain stimuli, reactive pupils, Head Exam: Normal inspection Neck Exam: Normal inspection. Non-tender. Normal alignment Pulmonary/Respiratory: Chest non-tender. Clear bilateral breath sounds Cardiovascular/Chest: Regular rate and rhythm. No murmurs. No JVD. Peripheral Pulses: 2+ Radial (R). 2+ Radial (L). 2+ Pedal (R). 2+ Pedal (L) Abdominal Exam: Normal bowel sounds. Soft. Nontender. No hepatospenomegaly. No masses Ankle Exam: Negative ankle edema Lower extremities: Negative lower extremity edema Neuro/Mental Status: Alert, not oriented to time place and person. Pupillary reflex present, upper and and lower extremity muscular strength 4/5. Sensory examination can not be done Objective vital signs Vital Sign Date Time Temp Pulse Resp B/P (MAP) Pulse Ox O2 Delivery O2 Flow Rate FiO2 07/17/24 15:00 111 11 112/73 (86) 100 07/17/24 12:00 98.5 98.5 07/17/24 08:00 Room Air* 0 21 Total Intake and Output 07/16/24 07/16/24 07/17/24 15:00 23:00 07:00 Intake Total 960 ml 500 ml 1578 ml Output Total 785 ml 810 ml Balance 960 ml -285 ml 768 ml medications Current Medications Medications Dose Ordered Sig/Sean Route Start Time Stop Time Status Last Admin Dose Admin Guaifenesin/ Dextromethorphan 10 ml Q4HP PRN PO 06/08/24 11:00 07/10/24 01:48 10 ML Morphine Sulfate 1 mg Q4HPRN PRN IV 06/16/24 14:00 07/17/24 03:47 1 MG Ondansetron HCl 4 mg Q4HP PRN IV 06/21/24 16:00 07/16/24 18:13 4 MG Nystatin 5 ml QID MT 06/27/24 12:00 07/16/24 05:47 5 ML Pantoprazole Sodium 40 mg DAILY@0600 PO 06/29/24 06:00 07/15/24 06:01 40 MG Ursodiol 300 mg BID PO 06/28/24 22:00 07/17/24 10:00 300 MG Morphine Sulfate 2 mg Q4HPRN PRN IV 06/29/24 16:45 07/17/24 01:25 2 MG Docusate Sodium 200 mg DAILYPRN PRN PO 07/02/24 14:30 Artificial Tears 1 drop Q6HP PRN EACHEYE 07/03/24 14:00 07/04/24 05:19 1 DROP Acetaminophen 650 mg Q6HP PRN PO 07/07/24 17:30 07/10/24 16:30 650 MG Linezolid 300 ml @ 150 mls/hr Q12HR IV 07/11/24 22:00 07/17/24 10:00 150 MLS/HR Metoclopramide HCl 5 mg Q8HPRN PRN IV 07/12/24 12:00 07/16/24 21:27 5 MG Diagnostic Test (Pha) 1 strip Q6HR 07/12/24 18:00 07/17/24 12:00 1 STRIP Insulin Human Regular FOLLOW SLIDING SCALE Q6HR SC 07/12/24 18:00 07/15/24 17:39 2 UNITS Dextrose 50 ml UD IV 07/12/24 17:45 Levetiracetam 100 ml @ 400 mls/hr BID IV 07/12/24 22:00 07/17/24 10:00 400 MLS/HR Lorazepam 1 mg Q5MINP PRN IV 07/12/24 21:15 07/17/24 02:39 1 MG Azithromycin 250 ml @ 125 mls/hr DAILY@1800 IV 07/14/24 18:00 07/16/24 18:13 125 MLS/HR Rifampin 600 mg DAILY@2100 GT 07/13/24 21:00 07/16/24 20:53 600 MG Ethambutol HCl 800 mg MWF GT 07/13/24 21:00 07/16/24 10:20 800 MG Phenytoin Sodium 100 mg Q8HR IV 07/14/24 06:00 07/17/24 14:08 100 MG Amino Acids 0 ml @ 0 mls/hr PER PHARMACY IV 07/15/24 22:00 Albumin Human 50 ml @ 100 mls/hr Q12HR IV 07/16/24 22:00 07/18/24 10:29 07/17/24 08:05 100 MLS/HR Sodium Bicarbonate 100 ml/Sodium Chloride 1,100 ml @ 100 mls/hr Q11H IV 07/16/24 11:15 07/17/24 01:50 100 MLS/HR Fat Emulsion Intravenous 50 ml/ Sodium Acetate 40 meq/Sodium Phosphate 40 meq/ Potassium Acetate 60 meq/Magnesium Sulfate 8 meq/ Multivitamins 10 ml/Amino Acids/ Dextrose/Purified Water 1,522 ml @ 63 mls/hr [id number] IV 07/16/24 22:00 07/17/24 21:59 07/17/24 01:00 63 MLS/HR Fluconazole 100 ml @ 100 mls/hr DAILY IV 07/17/24 10:00 07/17/24 09:00 100 MLS/HR Fat Emulsion Intravenous 50 ml/ Sodium Acetate 50 meq/Sodium Phosphate 40 meq/ Potassium Acetate 50 meq/Magnesium Sulfate 10 meq/ Multivitamins 10 ml/Amino Acids/ Dextrose/Purified Water 1,722.5 ml @ 72 mls/hr [id number] IV 07/17/24 22:00 07/18/24 21:59 Sodium Chloride 10 ml QSHIFT@10,22 IV 07/17/24 22:00 laboratory and microbiology Laboratory Tests 07/17/24 04:45 Test 07/17/24 04:45 Range/Units Serum Glucose 93 74-106 mg/dL Microbiology Date/Time Source Procedure Growth Status 07/13/24 11:38 Stool Clostridium difficile Toxin Assay - Final Complete 07/13/24 07:50 Blood Blood Culture - Preliminary NO GROWTH AFTER 72 HOURS OF INCUBATION. Resulted 07/12/24 20:25 Nose MRSA Screen - Final Complete 07/11/24 19:32 Cerebral Spinal Fluid Gram Stain - Final Complete 07/11/24 19:32 Cerebral Spinal Fluid CSF Culture & Gram Stain (Tube 2) M - Final Complete 07/11/24 14:54 Voided Urine Urine Culture - Final Complete 07/07/24 06:10 Sputum Gram Stain - Final Complete 07/07/24 06:10 Respiratory Culture - Final Staphylococcus aureus Complete Problem List/Assessment/Plan Problem List/Assessment/Plan Pneumocystis Jerovoci or Carini Pneumonia ( opportunistic infection) AIDS, CD4 count less than 10 Acid-fast bacilli culture positive , Mycobacterium avium complex infection Neutropenic fever UTI Enterococcus faecalis Multifocal pneumonia Septic shock due to pneumonia: Currently off vasopressor Transaminitis with elevated bilirubin ? Age cholangiopathy/medication induced Hyponatremia likely due to SIADH Pulmonary nodule, 2 cm in size Left adrenal nodule Severe anemia Immunosuppressed Homosexual Seizure Plan/recommendation Dr. Robins -currently on PPN, patient will be started on TPN today once PICC line insertion done. -correct electrolytes including potassium: As per hospitalist/nephrology team recommendation. -patient recently diagnosed with MAC infection, HIV, PCP pneumonia. antibiotics as per ID recommendation. Currently on rifampin ethambutol and azithromycin. Continue following liver function tests. -liver function tests continuously trending down. -GI will be standing by in case for any acute need for GI intervention. -prognosis remained guarded. -PUD prophylaxis with Protonix 40 mg p.o. daily. Plan discussed with: Other (RN) Dietary Evaluation Review Comments: 1. advance diet when medically feasible: Renal Sepcific 40g Protein restriction diet, supplement his protein needs with clinimix @ 41ml/hr (42.5 gPro 510 kcal) 2. TPN per pharmacy if NPO > 7 days Expected Outcomes/Goals: gradual wt gain, improved nutrition status. grdual healed wounds. ELVA SAEZ RESIDENT Jul 17, 2024 15:49
[2024-07-17] MEDS: PANTOPRAZOLE 40 MG/10 ML VIAL INJ IV ONE (16:56)
--- NOTE | 2024-07-17 21:16 | DVHPNRES ---
Progress Note Date Seen: Jul 17, 2024 Resident Creating Document: CESAR LIRIANO RESIDENT Has the PT tested + for MRSA If YES, has PT been informed?: Yes Medical Necessity Reason Pt with a Central, PICC or Fol: Yes The following are medically ne: Chua Catheter Reason for chua catheter: Strict I&O Subjective Patient reports: No new complaints Objective vital signs Vital Sign Date Time Temp Pulse Resp B/P (MAP) Pulse Ox O2 Delivery O2 Flow Rate FiO2 07/17/24 18:00 115 07/17/24 18:00 11 134/85 (101) 99 07/17/24 16:00 98.9 98.9 07/17/24 08:00 Room Air* 0 21 Total Intake and Output 07/16/24 07/16/24 07/17/24 15:00 23:00 07:00 Intake Total 960 ml 500 ml 1578 ml Output Total 785 ml 810 ml Balance 960 ml -285 ml 768 ml medications Current Medications Medications Dose Ordered Sig/Sean Route Start Time Stop Time Status Last Admin Dose Admin Guaifenesin/ Dextromethorphan 10 ml Q4HP PRN PO 06/08/24 11:00 07/10/24 01:48 10 ML Morphine Sulfate 1 mg Q4HPRN PRN IV 06/16/24 14:00 07/17/24 03:47 1 MG Ondansetron HCl 4 mg Q4HP PRN IV 06/21/24 16:00 07/16/24 18:13 4 MG Nystatin 5 ml QID MT 06/27/24 12:00 07/16/24 05:47 5 ML Ursodiol 300 mg BID PO 06/28/24 22:00 07/17/24 10:00 300 MG Morphine Sulfate 2 mg Q4HPRN PRN IV 06/29/24 16:45 07/17/24 01:25 2 MG Docusate Sodium 200 mg DAILYPRN PRN PO 07/02/24 14:30 Artificial Tears 1 drop Q6HP PRN EACHEYE 07/03/24 14:00 07/04/24 05:19 1 DROP Acetaminophen 650 mg Q6HP PRN PO 07/07/24 17:30 07/10/24 16:30 650 MG Linezolid 300 ml @ 150 mls/hr Q12HR IV 07/11/24 22:00 07/17/24 10:00 150 MLS/HR Metoclopramide HCl 5 mg Q8HPRN PRN IV 07/12/24 12:00 07/16/24 21:27 5 MG Diagnostic Test (Pha) 1 strip Q6HR 07/12/24 18:00 07/17/24 18:00 1 STRIP Insulin Human Regular FOLLOW SLIDING SCALE Q6HR SC 07/12/24 18:00 07/15/24 17:39 2 UNITS Dextrose 50 ml UD IV 07/12/24 17:45 Levetiracetam 100 ml @ 400 mls/hr BID IV 07/12/24 22:00 07/17/24 10:00 400 MLS/HR Lorazepam 1 mg Q5MINP PRN IV 07/12/24 21:15 07/17/24 02:39 1 MG Azithromycin 250 ml @ 125 mls/hr DAILY@1800 IV 07/14/24 18:00 07/17/24 18:32 125 MLS/HR Rifampin 600 mg DAILY@2100 GT 07/13/24 21:00 07/16/24 20:53 600 MG Ethambutol HCl 800 mg MWF GT 07/13/24 21:00 07/16/24 10:20 800 MG Phenytoin Sodium 100 mg Q8HR IV 07/14/24 06:00 07/17/24 14:08 100 MG Amino Acids 0 ml @ 0 mls/hr PER PHARMACY IV 07/15/24 22:00 Albumin Human 50 ml @ 100 mls/hr Q12HR IV 07/16/24 22:00 07/18/24 10:29 07/17/24 08:05 100 MLS/HR Sodium Bicarbonate 100 ml/Sodium Chloride 1,100 ml @ 100 mls/hr Q11H IV 07/16/24 11:15 07/17/24 16:47 100 MLS/HR Fat Emulsion Intravenous 50 ml/ Sodium Acetate 40 meq/Sodium Phosphate 40 meq/ Potassium Acetate 60 meq/Magnesium Sulfate 8 meq/ Multivitamins 10 ml/Amino Acids/ Dextrose/Purified Water 1,522 ml @ 63 mls/hr [id number] IV 07/16/24 22:00 07/17/24 21:59 07/17/24 01:00 63 MLS/HR Fluconazole 100 ml @ 100 mls/hr DAILY IV 07/17/24 10:00 07/17/24 09:00 100 MLS/HR Fat Emulsion Intravenous 50 ml/ Sodium Acetate 50 meq/Sodium Phosphate 40 meq/ Potassium Acetate 50 meq/Magnesium Sulfate 10 meq/ Multivitamins 10 ml/Amino Acids/ Dextrose/Purified Water 1,722.5 ml @ 72 mls/hr [id number] IV 07/17/24 22:00 07/18/24 21:59 Sodium Chloride 10 ml QSHIFT@10,22 IV 07/17/24 22:00 Pantoprazole Sodium 40 mg DAILY IV 07/18/24 10:00 Examination Examination: GENERAL:Normal (Looks sick), HEENT:Normal (Oral mucosa dry and cracked , chelitis. ), NECK:Normal, LUNGS:Abnormal (Bilateral basal rales likely due to atelectasis), CVS:Normal (Blood pressure well controlled with the MAP over 65.), ABDOMEN:Normal, MSK:Abnormal (Low muscle mass), SKIN:Abnormal (Low skin turgor), NEURO:Abnormal (Alert but not oriented x1 responding to vocal stimuli), :Abnormal (And retract tube still having brown loose stool) Examination: GENERAL:Abnormal (Mild improvement since yesterday, more awake alert, responding to voice commands and pain), HEENT:Normal, NECK:Normal, LUNGS:Normal, CVS:Normal, ABDOMEN:Normal, MSK:Normal, SKIN:Normal, NEURO:Normal, :Normal laboratory and microbiology Laboratory Tests 07/17/24 04:45 Test 07/17/24 04:45 Range/Units Serum Glucose 93 74-106 mg/dL Microbiology Date/Time Source Procedure Growth Status 07/13/24 11:38 Stool Clostridium difficile Toxin Assay - Final Complete 07/13/24 07:50 Blood Blood Culture - Preliminary NO GROWTH AFTER 72 HOURS OF INCUBATION. Resulted 07/12/24 20:25 Nose MRSA Screen - Final Complete 07/11/24 19:32 Cerebral Spinal Fluid Gram Stain - Final Complete 07/11/24 19:32 Cerebral Spinal Fluid CSF Culture & Gram Stain (Tube 2) M - Final Complete 07/11/24 14:54 Voided Urine Urine Culture - Final Complete 07/07/24 06:10 Sputum Gram Stain - Final Complete 07/07/24 06:10 Respiratory Culture - Final Staphylococcus aureus Complete Labs and/or images reviewed: Labs reviewed by me, Image(s) reviewed by me Problem List/Assessment/Plan Problem List/Assessment/Plan ICU Course: A 28-year-old homosexual male patient; who was recently diagnosed with HIV, not on treatment; who presented with cough to [facility] and was transferred to [facility] for further evaluation and treatment. He has a history of homosexual activity presents with suspected sepsis, acute hypoxic respiratory failure, and bilateral pneumonia, possibly due to atypical infections. They have a productive cough, fever, tachycardia, and decreased oxygen saturation. The patient is on IV antibiotics, oxygen therapy, and nebulizer treatments, with close monitoring and consultations from infectious disease, nephrology and pulmonology teams. Additional concerns include normocytic anemia, elevated liver enzymes, mild hyponatremia, and an elevated D-dimer, with a chest angiogram ordered to rule out DVT. Denies any prior EGD or colonoscopy, family history negative for any GI malignancy. Having recurrent diarrhea. Patient has full-blown AIDS with multiple infections possibly night now having encephalopathy with meningitis. Hospitalization day: 39 day A. Neurolgy: #Metabolic encephalopathy due to sepsis/?meningitis: Head CT unremarkable, p atient is more arousable, more awake #?Seizure due to ?Meningitis: Head CT unremarkable, CSF pointing towards viral meningitis likely, neurology on board continue IV Keppra p.r.n. ID on board, continue antibiotics, consider antiviral B. Cardiology: # septic shock: Due to multiple opportunity seeing infections: Off of vasopressor maintaining map over 65, IV fluids as needed C. Respiratory: # acute hypoxic respiratory failure: Recovered # Pneumocystis jiroveci multifocal pneumonia: partially treated likely improve patient is on room air. # Multifocal pneumonia, Pneumocystis Jerovoci or Carini Pneumonia ( opportunistic infection) # Pulmonary nodule, 2 cm in size, accidental finding D. Gastrointenstinal: #Transaminitis with elevated bilirubin ?cholangiopathy/medication induced: Improved, continue oral Actigall # antibiotic associated diarrhea: Due to immunocompromised state can not start patient on Florastor patient continues to have greenish liquid stool. C diff toxin negative. Check stool parasite n ova # nutrition: Patient is on enteral nutrition, we will consider further supplementation as per GI when patient has a PICC line E. Geniotourinary: # UTI Enterococcus faecalis status post ampicillin stopped by ID F. Infectious Disease: # leukopenia with neutropenic fever ?likely due to sepsis #oral candidiasis: Can not tolerate change to fluconazole IV. #AIDS, CD4 count less than 10: specific treatment: Biktarvy to be arranged inpatient to bilevel reach for improved immune function, medications sent to pharmacy waiting for delivery to bedside. #Acid-fast bacilli culture positive likely MAC infection: Patient on antibiotics, continue ID on board. Rifampin, ethambutol to continue #Pneumocystis Jerovoci or Carini Pneumonia ( opportunistic infection): Partially treated. # respiratory culture positive for MRSA, continue antibiotics G. Hematology & Oncology: # microcytic anemia, Severe, requiring blood transfusion: Status post 1 unit PRBC H. Nephrology: #VEL due to ?bacterim use: Close I&O patient is making urine, conservative management daily BNP nephrology on board continue IV fluids, satisfactory I/0, daily BNP to follow #Hyponatremia ?SIADH due to PCP pneumonia/bacterim improved #hypokalemia: Recurrent slowly correct hypokalemia with 40 IV potassium with repeat potassium check as kidney functions poor, slow correction #Hyperkalemia: Previously corrected I. Endocrine: #Left adrenal nodule: Morning cortisol elevated on 07/10/2024 45.68 J. MSK: # mild to moderate malnutrition with loss of muscle mass K. Prophylaxis: PPI: Pantoprazole Oral /BPI DVT: SCDs L. Lines & Drains (with insertion date): NG tube IV lines infiltrated, removed, PICC line inserted on 07/17 N. Disposition: Remains STELLA Updated family, uncle, other family members and friends stiffening without diverging sensory patient data. As of now family agreed that power of senior attorney Tri (close friend), designated by the patient for all decision-making. The plan was discussed with the ICU attending Dr. Pettit. The patient care consists of total 81 minutes of critical care time excluding the procedures. Dictated by Cesar Liriano MD with 3M MModal Fluency. Plan discussed with: Patient, Other (Uncle, POA Tri friend) Dietary Evaluation Review Comments: 1. advance diet when medically feasible: Renal Sepcific 40g Protein restriction diet, supplement his protein needs with clinimix @ 41ml/hr (42.5 gPro 510 kcal) 2. TPN per pharmacy if NPO > 7 days Expected Outcomes/Goals: gradual wt gain, improved nutrition status. grdual healed wounds. Date of Service: Jul 17, 2024 Billing Provider: ANDRE PETTIT MD Common Visit Codes: 75468-CSEAXGCC CARE 30-74 MIN, 70706-[id number] CARE-EACH +30MIN HERICESAR RESIDENT Jul 17, 2024 21:16 ANDRE PETTIT MD Jul 18, 2024 17:14
[2024-07-17] MEDS: SODIUM CHLOR 0.9% PF (SALINE LOCK) 10ML VIAL/SYR IV SCH (21:34)
[2024-07-18] VITALS (70 sets, daily range): BP systolic 117–141; BP diastolic 76–94; PULSE 106–135; RESP 10–20; TEMP 97.9–99.8; O2SAT 95–100
--- NOTE | 2024-07-18 00:12 | DVHEEG2 ---
Neurology EEG Procedural Note Procedural Note EXAM DATE: 07/17/2024 REFERRING DOCTOR: Dr. Chavez TECHNIQUE: Eighteen channels of EEG, 2 channels of EOG, and 1 channel of EKG were recorded using the International 10/20 system. CLINICAL DATA: The patient was referred for an EEG evaluation for the evidence of seizure disorder. MEDICATIONS: See the chart BACKGROUND ACTIVITY: The recreation showed low-amplitude mixed delta and theta activity over both hemispheres, that was reactive to external stimuli ACTIVATION: Hyperventilation: Not done Photic Stimulation: Not done Sleep: Not seen IMPRESSION: This is a moderately to remarkably abnormal EEG, this EEG is seen in moderate to severe cerebral dysfunction due to metabolic/hypoxic encephalopathy or medication effect, please correlate clinically The EKG channel showed a regular heart rate of 108/min. [place] [address] JEFFERY CHAVEZ MD Jul 18, 2024 00:12
[2024-07-18 05:39] LABS: Hemoglobin 7.2 g/dL (13.5-17.5)
[2024-07-18 05:41] LABS: Alanine Aminotransferase 19 U/L (7-40); Anion Gap 10 (5-15); Aspartate Aminotransferase 37 U/L (13-40); BUN/Creatinine Ratio 14.7 (10.0-20.0); Carbon Dioxide 22 mmol/L (20-31); Chloride 104 mmol/L (98-107); Glucose 81 mg/dL (74-106); Magnesium 2.1 mg/dL (1.6-2.6); Phosphorus 4.1 mg/dL (2.4-5.1); Sodium 136 mmol/L (136-145)
[2024-07-18 05:42] LABS: Hematocrit 20.9 % (41.0-53.0); Mean Corpuscular Hemoglobin 27.6 pg (28.0-32.0); Mean Corpuscular Hgb Conc. 34.3 g/dL (32.0-36.0); Mean Corpuscular Volume 80.4 fL (80.0-100.0); Platelet Count (auto) 319 10^3/uL (140-450); White Blood Cell 8.2 10^3/uL (4.4-10.8)
[2024-07-18 05:55] LABS: Albumin 2.6 g/dL (3.2-4.8); Alkaline Phosphatase 251 U/L (46-116); Bilirubin, Total 1.6 mg/dL (0.2-1.0); Blood Urea Nitrogen 68 mg/dL (9-23); Potassium 3.5 mmol/L (3.5-5.1); Red Cell Distribution Width 20.2 % (11.8-14.3)
[2024-07-18 05:57] LABS: Basophils % (manual) 0 (0.0-2.0); Blast Cells 0; Eosinophils % (manual) 0 (0-7); Promyelocytes % 0; Reactive Lymphocytes 0
[2024-07-18 06:34] LABS: Band Neutrophils % (manual) 6; Lymphocytes % (manual) 8 (10.0-50.0); Metamyelocytes % 2; Monocytes % (manual) 9 (0-12); Myelocytes % 1
[2024-07-18 06:35] LABS: Platelet Estimate Adequate
[2024-07-18] MEDS: PANTOPRAZOLE 40 MG/10 ML VIAL INJ IV SCH (09:20)
--- NOTE | 2024-07-18 10:22 | DVHPN2 ---
Progress Note - Dictate Date Seen: Jul 18, 2024 Has the PT tested + for MRSA If YES, has PT been informed?: Yes Medical Necessity Reason Pt with a Central, PICC or Fol: Yes The following are medically ne: Chua Catheter Reason for chua catheter: Strict I&O Subjective PATIENT DOES NOT WANT ANY INFORMATION SHARED 07/13/24 Re-Assessment Re: HIGINIO HUANG spoke with patient uncle Blaine ([phone]) in regards to patients wishes when he was a/ox4. Per patient he did not want any family to be provided with any medical information. Since patient is unable to make any medical decisions at that moment, who will make any medical decisions would have to be determined. Real Estate Marketing Coordinator will be consulted. Per patients Uncle patient has no Next of Kin, last remaining member of his immediate family. On 07/15/24, his nurse told me that I could talk to his uncle and friend, Aleena Moss is a 28 years old gentleman with a history of HIV/aids, he was transferred from the [facility] on 06/08/2024 for further evaluation treatment. On 07/11/24, he had seizure-like activity however his nurse and medical staff did not witnessed symptoms. I have seen and examined the patient, I have talked to his nurse, his eyes are open, he avoids visual threat, but he was nonresponsive to verbal stimuli. He moves the left arm occasionally No seizure symptoms before in the Phenytoin, 07/14/2024:15.7 (Alb: 2.8), 07/15/2024: 12.9 CSF, 07/11/2024: RBC: Five, protein: 46 found eight, glucose: 49 UDS, 06/26/2024: Opiates Plasma alcohol, 06/25/2024: Normal Urinalysis, 07/17/2024: WBC: Negative, urine leukocyte esterase: Negative WBC/HB/PLT/MCV, 07/12/2024: 4.4/6.4/331/78 0.1 PT/INR/PTT, 06/15/2024: 0.2/35/29/112, 06/12/2024: 11.1/1.06/29.3 Na, 06/08/2024: 136, 06/15/24:129, 06/20/24: 122, 06/24/2024: 117, 06/25 06/30: 121, 07/03/2024: 120, 07/06/2024: 123, 07/12/24: 132 BUN/CR, 07/02/2024: 15/0.49 07/12/2024: 68/4.30 TBI/AST/ALT/AP, 06/24/2024: 4.10/2515/1321/482, 07/02/2024: 9.8/71/196/710, 07/12/2024: 3.2/79/50/395 EEG, 07/13/2024: Electrographic status epileptics EEG, 07/17/2024: Moderate to severely abnormal EEG CT head, 07/11/2024: No acute intracranial proces CT head, 07/15/2024: No evidence of acute intracranial abnormality MRI head, 07/06/2024: No acute cardiopulmonary disease. vital signs Vital Sign Date Time Temp Pulse Resp B/P (MAP) Pulse Ox O2 Delivery O2 Flow Rate FiO2 07/18/24 09:00 112 11 123/81 (95) 99 07/18/24 08:00 98.2 98.2 07/18/24 08:00 Room Air* 0 21 Total Intake and Output 07/17/24 07/17/24 07/18/24 15:00 23:00 07:00 Intake Total 1654 ml 1732 ml 1716 ml Output Total 950 ml 1300 ml Balance 1654 ml 782 ml 416 ml medications Current Medications Medications Dose Ordered Sig/Sean Route Start Time Stop Time Status Last Admin Dose Admin Guaifenesin/ Dextromethorphan 10 ml Q4HP PRN PO 06/08/24 11:00 07/10/24 01:48 10 ML Morphine Sulfate 1 mg Q4HPRN PRN IV 06/16/24 14:00 07/17/24 03:47 1 MG Ondansetron HCl 4 mg Q4HP PRN IV 06/21/24 16:00 07/18/24 02:05 4 MG Nystatin 5 ml QID MT 06/27/24 12:00 07/18/24 05:57 5 ML Ursodiol 300 mg BID PO 06/28/24 22:00 07/18/24 09:25 300 MG Morphine Sulfate 2 mg Q4HPRN PRN IV 06/29/24 16:45 07/17/24 01:25 2 MG Docusate Sodium 200 mg DAILYPRN PRN PO 07/02/24 14:30 Artificial Tears 1 drop Q6HP PRN EACHEYE 07/03/24 14:00 07/04/24 05:19 1 DROP Acetaminophen 650 mg Q6HP PRN PO 07/07/24 17:30 07/10/24 16:30 650 MG Linezolid 300 ml @ 150 mls/hr Q12HR IV 07/11/24 22:00 07/18/24 09:24 150 MLS/HR Metoclopramide HCl 5 mg Q8HPRN PRN IV 07/12/24 12:00 07/16/24 21:27 5 MG Diagnostic Test (Pha) 1 strip Q6HR 07/12/24 18:00 07/18/24 05:57 1 STRIP Insulin Human Regular FOLLOW SLIDING SCALE Q6HR SC 07/12/24 18:00 07/18/24 00:52 2 UNITS Dextrose 50 ml UD IV 07/12/24 17:45 Levetiracetam 100 ml @ 400 mls/hr BID IV 07/12/24 22:00 07/18/24 09:21 400 MLS/HR Lorazepam 1 mg Q5MINP PRN IV 07/12/24 21:15 07/17/24 02:39 1 MG Azithromycin 250 ml @ 125 mls/hr DAILY@1800 IV 07/14/24 18:00 07/17/24 18:32 125 MLS/HR Rifampin 600 mg DAILY@2100 GT 07/13/24 21:00 07/17/24 21:10 600 MG Ethambutol HCl 800 mg MWF GT 07/13/24 21:00 07/18/24 09:23 800 MG Phenytoin Sodium 100 mg Q8HR IV 07/14/24 06:00 07/18/24 05:57 100 MG Amino Acids 0 ml @ 0 mls/hr PER PHARMACY IV 07/15/24 22:00 Albumin Human 50 ml @ 100 mls/hr Q12HR IV 07/16/24 22:00 07/18/24 10:29 07/18/24 09:22 100 MLS/HR Sodium Bicarbonate 100 ml/Sodium Chloride 1,100 ml @ 100 mls/hr Q11H IV 07/16/24 11:15 07/18/24 03:28 100 MLS/HR Fluconazole 100 ml @ 100 mls/hr DAILY IV 07/17/24 10:00 07/18/24 09:21 100 MLS/HR Fat Emulsion Intravenous 50 ml/ Sodium Acetate 50 meq/Sodium Phosphate 40 meq/ Potassium Acetate 50 meq/Magnesium Sulfate 10 meq/ Multivitamins 10 ml/Amino Acids/ Dextrose/Purified Water 1,722.5 ml @ 72 mls/hr [id number] IV 07/17/24 22:00 07/18/24 21:59 07/17/24 21:31 72 MLS/HR Sodium Chloride 10 ml QSHIFT@10,22 IV 07/17/24 22:00 07/18/24 09:20 10 ML Pantoprazole Sodium 40 mg DAILY IV 07/18/24 10:00 07/18/24 09:20 40 MG objective General: the patient is well developed and nourished. No acute distress. MENTAL STATUS: Subjective SPEECH, LANGUAGE, HIGHER CORTICAL FUNCTION: Deferred CRANIAL NERVES: Pupils are equal, round and reactive. There is conjugated eye more sometimes, no soft facial weakness SENSATION: Responds to light touch MOTOR: Normal tone in the upper and lower extremity. Subjective REFLEXES: Deep tendon reflexes are symmetrical. No pathological reflexes. CEREBELLAR/COORDINATION: Deferred GAIT/STATION: deferred laboratory and microbiology Laboratory Tests 07/18/24 04:48 Test 07/18/24 04:48 Range/Units Serum Glucose 81 74-106 mg/dL Problem List Witnessed seizure-like activity Altered mental status Status epilepticus Metabolic encephalopathy Aids Anemia Leukopenia Kidney failure Elevated liver function tests Hyponatremia Assessment/Plan Monitoring Supportive treatment STELLA care Aerosol isolation Oxygen Respiratory support p.r.n. Stabilize vitals p.r.n. IV antibiotics Dilantin 100 mg IV Q 8 hours Keppra 1000 mg b.i.d. Ativan for seizure breakthrough TPN More recommendation per clinical course This medical document was created using an electronic medical record system with [employer] dictation system. Although this document has been carefully reviewed, there may still be some phonetic and typographical errors. These areas are purely typographical due to imperfections of the software programs, and do not reflect any compromise in the patient's medical care Prognosis poor Dietary Evaluation Review Comments: 1. advance diet when medically feasible: Renal Sepcific 40g Protein restriction diet, supplement his protein needs with clinimix @ 41ml/hr (42.5 gPro 510 kcal) 2. TPN per pharmacy if NPO > 7 days Expected Outcomes/Goals: gradual wt gain, improved nutrition status. grdual healed wounds. Plan discussed with: Other JEFFERY CHAVZE MD Jul 18, 2024 10:22
--- NOTE | 2024-07-18 10:38 | DVHPN2 ---
Progress Note Date Seen: Jul 18, 2024 Has the PT tested + for MRSA If YES, has PT been informed?: Yes Medical Necessity Reason Pt with a Central, PICC or Fol: Yes The following are medically ne: Chua Catheter Reason for chua catheter: Strict I&O Subjective Patient reports: No new complaints Other Systems: Patient seen and examined by myself today in follow-up Objective vital signs Vital Sign Date Time Temp Pulse Resp B/P (MAP) Pulse Ox O2 Delivery O2 Flow Rate FiO2 07/18/24 09:00 112 11 123/81 (95) 99 07/18/24 08:00 98.2 98.2 07/18/24 08:00 Room Air* 0 21 Total Intake and Output 07/17/24 07/17/24 07/18/24 15:00 23:00 07:00 Intake Total 1654 ml 1732 ml 1716 ml Output Total 950 ml 1300 ml Balance 1654 ml 782 ml 416 ml medications Current Medications Medications Dose Ordered Sig/Sean Route Start Time Stop Time Status Last Admin Dose Admin Guaifenesin/ Dextromethorphan 10 ml Q4HP PRN PO 06/08/24 11:00 07/10/24 01:48 10 ML Morphine Sulfate 1 mg Q4HPRN PRN IV 06/16/24 14:00 07/17/24 03:47 1 MG Ondansetron HCl 4 mg Q4HP PRN IV 06/21/24 16:00 07/18/24 02:05 4 MG Nystatin 5 ml QID MT 06/27/24 12:00 07/18/24 05:57 5 ML Ursodiol 300 mg BID PO 06/28/24 22:00 07/18/24 09:25 300 MG Morphine Sulfate 2 mg Q4HPRN PRN IV 06/29/24 16:45 07/17/24 01:25 2 MG Docusate Sodium 200 mg DAILYPRN PRN PO 07/02/24 14:30 Artificial Tears 1 drop Q6HP PRN EACHEYE 07/03/24 14:00 07/04/24 05:19 1 DROP Acetaminophen 650 mg Q6HP PRN PO 07/07/24 17:30 07/10/24 16:30 650 MG Linezolid 300 ml @ 150 mls/hr Q12HR IV 07/11/24 22:00 07/18/24 09:24 150 MLS/HR Metoclopramide HCl 5 mg Q8HPRN PRN IV 07/12/24 12:00 07/16/24 21:27 5 MG Diagnostic Test (Pha) 1 strip Q6HR 07/12/24 18:00 07/18/24 05:57 1 STRIP Insulin Human Regular FOLLOW SLIDING SCALE Q6HR SC 07/12/24 18:00 07/18/24 00:52 2 UNITS Dextrose 50 ml UD IV 07/12/24 17:45 Levetiracetam 100 ml @ 400 mls/hr BID IV 07/12/24 22:00 07/18/24 09:21 400 MLS/HR Lorazepam 1 mg Q5MINP PRN IV 07/12/24 21:15 07/17/24 02:39 1 MG Azithromycin 250 ml @ 125 mls/hr DAILY@1800 IV 07/14/24 18:00 07/17/24 18:32 125 MLS/HR Rifampin 600 mg DAILY@2100 GT 07/13/24 21:00 07/17/24 21:10 600 MG Ethambutol HCl 800 mg MWF GT 07/13/24 21:00 07/18/24 09:23 800 MG Phenytoin Sodium 100 mg Q8HR IV 07/14/24 06:00 07/18/24 05:57 100 MG Amino Acids 0 ml @ 0 mls/hr PER PHARMACY IV 07/15/24 22:00 Sodium Bicarbonate 100 ml/Sodium Chloride 1,100 ml @ 100 mls/hr Q11H IV 07/16/24 11:15 07/18/24 03:28 100 MLS/HR Fluconazole 100 ml @ 100 mls/hr DAILY IV 07/17/24 10:00 07/18/24 09:21 100 MLS/HR Fat Emulsion Intravenous 50 ml/ Sodium Acetate 50 meq/Sodium Phosphate 40 meq/ Potassium Acetate 50 meq/Magnesium Sulfate 10 meq/ Multivitamins 10 ml/Amino Acids/ Dextrose/Purified Water 1,722.5 ml @ 72 mls/hr [id number] IV 07/17/24 22:00 07/18/24 21:59 07/17/24 21:31 72 MLS/HR Sodium Chloride 10 ml QSHIFT@10,22 IV 07/17/24 22:00 07/18/24 09:20 10 ML Pantoprazole Sodium 40 mg DAILY IV 07/18/24 10:00 07/18/24 09:20 40 MG Examination: LUNGS:Normal, CVS:Normal, MSK:Normal laboratory and microbiology Laboratory Tests 07/18/24 04:48 Test 07/18/24 04:48 Range/Units Serum Glucose 81 74-106 mg/dL Microbiology Date/Time Source Procedure Growth Status 07/13/24 11:38 Stool Clostridium difficile Toxin Assay - Final Complete 07/13/24 07:50 Blood Blood Culture - Final NO GROWTH AFTER 5 DAYS OF INCUBATION. Complete 07/12/24 20:25 Nose MRSA Screen - Final Complete 07/11/24 19:32 Cerebral Spinal Fluid Gram Stain - Final Complete 07/11/24 19:32 Cerebral Spinal Fluid CSF Culture & Gram Stain (Tube 2) M - Final Complete 07/11/24 14:54 Voided Urine Urine Culture - Final Complete 07/07/24 06:10 Sputum Gram Stain - Final Complete 07/07/24 06:10 Respiratory Culture - Final Staphylococcus aureus Complete Problem List/Assessment/Plan Problem List/Assessment/Plan Acute kidney injury secondary hemodynamic mediated ATN, feNa > 2% nonoliguric Creatinine was 0.6 on 07/09/2024 Hyponatremia secondary to excess H2O Hypokalemia Diarrhea Metabolic acidosis Seizures Encephalopathy AIDS Jaundice Transaminitis Hypoalbuminemia PCP on bactrim IV now switched to p.o. PNA Anemia due to blood loss status post packed red blood cell transfusion Recommendations Kidney function stabilized stage IV Increased urine output KCL replacement IVF with 1/2 NS 100 mEq sodium bicarb at 100 cc/hour KCL replacement Albumin 25% IV piggyback Kidney ultrasound reported bilateral echogenic kidney ID consult will continue to follow Plan discussed with: Other (Nurse) My Orders My Orders Orders - YONATHAN YAÑEZ MD Procedure Category Date Status Time Potassium Chl Gio PHA 07/18/24 Transmitted KCL 10:45 Dietary Evaluation Review Comments: 1. advance diet when medically feasible: Renal Sepcific 40g Protein restriction diet, supplement his protein needs with clinimix @ 41ml/hr (42.5 gPro 510 kcal) 2. TPN per pharmacy if NPO > 7 days Expected Outcomes/Goals: gradual wt gain, improved nutrition status. grdual healed wounds. YONATHAN YAÑEZ MD Jul 18, 2024 10:38
--- NOTE | 2024-07-18 10:43 | DVHPNRES ---
Progress Note Date Seen: Jul 18, 2024 Resident Creating Document: ELVA SAEZ RESIDENT Has the PT tested + for MRSA If YES, has PT been informed?: Yes Medical Necessity Reason Pt with a Central, PICC or Fol: Yes The following are medically ne: Chua Catheter Reason for chua catheter: Strict I&O Subjective Review of Systems Patient seen and examined at bedside. Patient continued to have poor mentation with GCS approximately 9-10. Still somnolent. Receiving nutrition TPN via PICC line Physical Exam General Appearance: Altered, protecting his airway, responding to pain stimuli, reactive pupils, Head Exam: Normal inspection Neck Exam: Normal inspection. Non-tender. Normal alignment Pulmonary/Respiratory: Chest non-tender. Clear bilateral breath sounds Cardiovascular/Chest: Regular rate and rhythm. No murmurs. No JVD. Peripheral Pulses: 2+ Radial (R). 2+ Radial (L). 2+ Pedal (R). 2+ Pedal (L) Abdominal Exam: Normal bowel sounds. Soft. Nontender. No hepatospenomegaly. No masses Ankle Exam: Negative ankle edema Lower extremities: Negative lower extremity edema Neuro/Mental Status: Alert, not oriented to time place and person. Pupillary reflex present, upper and and lower extremity muscular strength 4/5. Sensory examination can not be done Objective vital signs Vital Sign Date Time Temp Pulse Resp B/P (MAP) Pulse Ox O2 Delivery O2 Flow Rate FiO2 07/18/24 09:00 112 11 123/81 (95) 99 07/18/24 08:00 98.2 98.2 07/18/24 08:00 Room Air* 0 21 Total Intake and Output 07/17/24 07/17/24 07/18/24 15:00 23:00 07:00 Intake Total 1654 ml 1732 ml 1716 ml Output Total 950 ml 1300 ml Balance 1654 ml 782 ml 416 ml medications Current Medications Medications Dose Ordered Sig/Sean Route Start Time Stop Time Status Last Admin Dose Admin Guaifenesin/ Dextromethorphan 10 ml Q4HP PRN PO 06/08/24 11:00 07/10/24 01:48 10 ML Morphine Sulfate 1 mg Q4HPRN PRN IV 06/16/24 14:00 07/17/24 03:47 1 MG Ondansetron HCl 4 mg Q4HP PRN IV 06/21/24 16:00 07/18/24 02:05 4 MG Nystatin 5 ml QID MT 06/27/24 12:00 07/18/24 05:57 5 ML Ursodiol 300 mg BID PO 06/28/24 22:00 07/18/24 09:25 300 MG Morphine Sulfate 2 mg Q4HPRN PRN IV 06/29/24 16:45 07/17/24 01:25 2 MG Docusate Sodium 200 mg DAILYPRN PRN PO 07/02/24 14:30 Artificial Tears 1 drop Q6HP PRN EACHEYE 07/03/24 14:00 07/04/24 05:19 1 DROP Acetaminophen 650 mg Q6HP PRN PO 07/07/24 17:30 07/10/24 16:30 650 MG Linezolid 300 ml @ 150 mls/hr Q12HR IV 07/11/24 22:00 07/18/24 09:24 150 MLS/HR Metoclopramide HCl 5 mg Q8HPRN PRN IV 07/12/24 12:00 07/16/24 21:27 5 MG Diagnostic Test (Pha) 1 strip Q6HR 07/12/24 18:00 07/18/24 05:57 1 STRIP Insulin Human Regular FOLLOW SLIDING SCALE Q6HR SC 07/12/24 18:00 07/18/24 00:52 2 UNITS Dextrose 50 ml UD IV 07/12/24 17:45 Levetiracetam 100 ml @ 400 mls/hr BID IV 07/12/24 22:00 07/18/24 09:21 400 MLS/HR Lorazepam 1 mg Q5MINP PRN IV 07/12/24 21:15 07/17/24 02:39 1 MG Azithromycin 250 ml @ 125 mls/hr DAILY@1800 IV 07/14/24 18:00 07/17/24 18:32 125 MLS/HR Rifampin 600 mg DAILY@2100 GT 07/13/24 21:00 07/17/24 21:10 600 MG Ethambutol HCl 800 mg MWF GT 07/13/24 21:00 07/18/24 09:23 800 MG Phenytoin Sodium 100 mg Q8HR IV 07/14/24 06:00 07/18/24 05:57 100 MG Amino Acids 0 ml @ 0 mls/hr PER PHARMACY IV 07/15/24 22:00 Sodium Bicarbonate 100 ml/Sodium Chloride 1,100 ml @ 100 mls/hr Q11H IV 07/16/24 11:15 07/18/24 03:28 100 MLS/HR Fluconazole 100 ml @ 100 mls/hr DAILY IV 07/17/24 10:00 07/18/24 09:21 100 MLS/HR Fat Emulsion Intravenous 50 ml/ Sodium Acetate 50 meq/Sodium Phosphate 40 meq/ Potassium Acetate 50 meq/Magnesium Sulfate 10 meq/ Multivitamins 10 ml/Amino Acids/ Dextrose/Purified Water 1,722.5 ml @ 72 mls/hr [id number] IV 07/17/24 22:00 07/18/24 21:59 07/17/24 21:31 72 MLS/HR Sodium Chloride 10 ml QSHIFT@10,22 IV 07/17/24 22:00 07/18/24 09:20 10 ML Pantoprazole Sodium 40 mg DAILY IV 07/18/24 10:00 07/18/24 09:20 40 MG Potassium Chloride 100 ml @ 50 mls/hr Q2H IV 07/18/24 10:45 07/18/24 14:44 UNV laboratory and microbiology Laboratory Tests 07/18/24 04:48 Test 07/18/24 04:48 Range/Units Serum Glucose 81 74-106 mg/dL Microbiology Date/Time Source Procedure Growth Status 07/13/24 11:38 Stool Clostridium difficile Toxin Assay - Final Complete 07/13/24 07:50 Blood Blood Culture - Final NO GROWTH AFTER 5 DAYS OF INCUBATION. Complete 07/12/24 20:25 Nose MRSA Screen - Final Complete 07/11/24 19:32 Cerebral Spinal Fluid Gram Stain - Final Complete 07/11/24 19:32 Cerebral Spinal Fluid CSF Culture & Gram Stain (Tube 2) M - Final Complete 07/11/24 14:54 Voided Urine Urine Culture - Final Complete 07/07/24 06:10 Sputum Gram Stain - Final Complete 07/07/24 06:10 Respiratory Culture - Final Staphylococcus aureus Complete Problem List/Assessment/Plan Problem List/Assessment/Plan Pneumocystis Jerovoci or Carini Pneumonia ( opportunistic infection) AIDS, CD4 count less than 10 Acid-fast bacilli culture positive , Mycobacterium avium complex infection Neutropenic fever UTI Enterococcus faecalis Multifocal pneumonia Septic shock due to pneumonia: Currently off vasopressor Transaminitis with elevated bilirubin ? Age cholangiopathy/medication induced Hyponatremia likely due to SIADH Pulmonary nodule, 2 cm in size Left adrenal nodule Severe anemia Immunosuppressed Homosexual Seizure Plan/recommendation Dr. Robins -receiving TPN via PICC line. -correct electrolytes including potassium: As per hospitalist/nephrology team recommendation. -patient recently diagnosed with MAC infection, HIV, PCP pneumonia. antibiotics as per ID recommendation. Currently on rifampin ethambutol and azithromycin. Continue following liver function tests. -liver function tests continuously trending down. -GI will be standing by in case for any acute need for GI intervention. -prognosis remained guarded. -PUD prophylaxis with Protonix 40 mg p.o. daily. Plan discussed with: Other (RN) Dietary Evaluation Review Comments: 1. advance diet when medically feasible: Renal Sepcific 40g Protein restriction diet, supplement his protein needs with clinimix @ 41ml/hr (42.5 gPro 510 kcal) 2. TPN per pharmacy if NPO > 7 days Expected Outcomes/Goals: gradual wt gain, improved nutrition status. grdual healed wounds. ELVA SAEZ RESIDENT Jul 18, 2024 10:43
[2024-07-18] MEDS: POTASSIUM CHL 20MEQ/100ML 100 ML IV SCH (11:21)
[2024-07-18 12:21] LABS: Protein, Urine 138.3 mg/dL (1-14)
[2024-07-18 12:23] LABS: Creatinine, Urine 25.89 mg/dL (30.0-125.0); Urine Protein/Creatinine Ratio 5.34
--- NOTE | 2024-07-18 14:33 | ECG ---
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
[2024-07-18 14:51] LABS: Triglycerides 217 mg/dL (< 150)
--- NOTE | 2024-07-18 22:14 | DVHPN2 ---
Consult Progress Note Date Seen: Jul 16, 2024 Subjective Patient reports: Other Objective vital signs Vital Sign Date Time Temp Pulse Resp B/P (MAP) Pulse Ox O2 Delivery O2 Flow Rate FiO2 07/18/24 20:30 133 18 136/88 (104) 99 07/18/24 19:15 98.7 98.7 07/18/24 08:00 Room Air* 0 21 Total Intake and Output 07/17/24 07/17/24 07/18/24 15:00 23:00 07:00 Intake Total 1654 ml 1732 ml 1716 ml Output Total 950 ml 1300 ml Balance 1654 ml 782 ml 416 ml medications Current Medications Medications Dose Ordered Sig/Sean Route Start Time Stop Time Status Last Admin Dose Admin Guaifenesin/ Dextromethorphan 10 ml Q4HP PRN PO 06/08/24 11:00 07/10/24 01:48 10 ML Morphine Sulfate 1 mg Q4HPRN PRN IV 06/16/24 14:00 07/17/24 03:47 1 MG Ondansetron HCl 4 mg Q4HP PRN IV 06/21/24 16:00 07/18/24 02:05 4 MG Nystatin 5 ml QID MT 06/27/24 12:00 07/18/24 19:39 5 ML Ursodiol 300 mg BID PO 06/28/24 22:00 07/18/24 09:25 300 MG Morphine Sulfate 2 mg Q4HPRN PRN IV 06/29/24 16:45 07/17/24 01:25 2 MG Docusate Sodium 200 mg DAILYPRN PRN PO 07/02/24 14:30 Artificial Tears 1 drop Q6HP PRN EACHEYE 07/03/24 14:00 07/04/24 05:19 1 DROP Acetaminophen 650 mg Q6HP PRN PO 07/07/24 17:30 07/10/24 16:30 650 MG Linezolid 300 ml @ 150 mls/hr Q12HR IV 07/11/24 22:00 07/18/24 21:43 150 MLS/HR Metoclopramide HCl 5 mg Q8HPRN PRN IV 07/12/24 12:00 07/18/24 20:22 5 MG Diagnostic Test (Pha) 1 strip Q6HR 07/12/24 18:00 07/18/24 19:39 1 STRIP Insulin Human Regular FOLLOW SLIDING SCALE Q6HR SC 07/12/24 18:00 07/18/24 19:40 4 UNITS Dextrose 50 ml UD IV 07/12/24 17:45 Levetiracetam 100 ml @ 400 mls/hr BID IV 07/12/24 22:00 07/18/24 21:43 400 MLS/HR Lorazepam 1 mg Q5MINP PRN IV 07/12/24 21:15 07/17/24 02:39 1 MG Azithromycin 250 ml @ 125 mls/hr DAILY@1800 IV 07/14/24 18:00 07/18/24 19:41 125 MLS/HR Rifampin 600 mg DAILY@2100 GT 07/13/24 21:00 07/17/24 21:10 600 MG Ethambutol HCl 800 mg MWF GT 07/13/24 21:00 07/18/24 09:23 800 MG Phenytoin Sodium 100 mg Q8HR IV 07/14/24 06:00 07/18/24 15:13 100 MG Amino Acids 0 ml @ 0 mls/hr PER PHARMACY IV 07/15/24 22:00 Sodium Bicarbonate 100 ml/Sodium Chloride 1,100 ml @ 100 mls/hr Q11H IV 07/16/24 11:15 07/18/24 14:41 100 MLS/HR Sodium Chloride 10 ml QSHIFT@10,22 IV 07/17/24 22:00 07/18/24 21:43 10 ML Pantoprazole Sodium 40 mg DAILY IV 07/18/24 10:00 07/18/24 09:20 40 MG Fat Emulsion Intravenous 50 ml/ Sodium Chloride 20 meq/Sodium Acetate 60 meq/ Potassium Acetate 40 meq/Calcium Gluconate 2.3 meq/ Magnesium Sulfate 10 meq/ Multivitamins 10 ml/Amino Acids/ Dextrose/Purified Water 1,122.4462 ml @ 46 mls/hr [id number] IV 07/18/24 22:00 07/19/24 21:59 laboratory and microbiology Laboratory Tests 07/18/24 04:48 Test 07/18/24 04:48 Range/Units Serum Glucose 81 74-106 mg/dL Problem List/Assessment/Plan Problems(with codes): (1) AIDS (acquired immune deficiency syndrome) (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 Age cholangiopathy/medication induced Hyponatremia likely due to SIADH Pulmonary nodule, 2 cm in size Left adrenal nodule Severe anemia Immunosuppressed Homosexual. Assessment: Patient is an HIV patient , 28 years old and diagnosed in May 2024 [facility] and transferred to [facility] . Patient CD4 count of 10 , viral load over 1 million and patient presented with acute hypoxic respiratory failure fevers and has been in hospital for about 1 month and in ICU requiring levofed . has a bronchoscopy done showing BAL cytology finding consistency with PJP pneumonia so started on bactrum from 7 days and then discontinued due to patient developing LFT elevation as well as hyperbilirubinemia . switched to climdamycin then discontinued due to patient improving and put on room ai r, evaluated for TB , AFB sputum has been negative and MTBPCR x2 has been negative however after 2 weeks 1 of patients sputum is growing AFB organism thats yet to be identified. feels a bit weak and has been having weightloss , fevers , chills for the last several months, last febrile was 48 hours ago with a temp of 100.5 and is neuropenic with a whitecount of 1.2 and is tachycardic with HR of 128 . low body weight of 54.1 kg and kexia and poor historia , having anemia with a hemoglobin of 7.6 which has been going down during admission . problem list includes HIV Aids , pneumonia , multi opportunistic organism infection including PJP and possibly TB vs Mac infection , cytopenias , neutropenic fever , sepsis , anemia , UTI with enterococcus . 12 point review systems and vitals signs and relevant imaging has been reviewed by me . plan for patient would be to stop ampicillin and start vancomycin and cefamine empirically due to fevers and unresolved sepsis and continue until fevers have resolved for 48 hours and meutropenia has improved . would check prior hold HAART therapy until TB infection is ruled out as cryptococal toxoplasm and CMV infections . check serologies for these and would restart patient on bactrum to finish 21 day course , will monitor LFTs and anemia . recommend checking AFB blood in stool for further evaluation of MAC infection and follow up on AFB cultures . continue airborne and droplet isolation precautions 2/4; continues to be febrile and was reported by Dr Vu in the AM to be more alert , lethargic and not responding to questions but responding to deep sternal rub . patients whitecount is rising and kidney function is worsening. Is on room air and can forgo PJP treatments since it is unlikely playing a large role in septic picture and patietns on room ait . Patient weighs 106 lbs , so attempt to lower bactrum to 1 double strength tablet 3x a day and monitor kidney function , can stop vancomycin in setting of VEL and will switch to linasolid and continue cefepime. If mentation does not improve in next 24 hours patient will need lumbar puncture. recommend repeating blood cultures and doing a chest ct of abdomen and pelvis 2/5: remains uptunded but is able to protenct airway , underwent a lumbar puncture earlier in the day and is still not responsive and pulling out lines . no fever in the last 24 hours but patient is having rising keratin , BUN 68 which is possibly contributing to an altered mental staus . however would want to rule out any type of infectious meningitis in the setting of AIDs for lumbar punture recommend bacterial AFB fungal culture , viral culture , CMV antibuody , VZV antibody , cryptococcus antibody , coxy antibody , RPR , HSVPR , PCR , VDRL . Continue linazolid and cefepime which will provide patient with adequate menegitis coverage . unclear ideology staus at this stime but suspect its a combination of HIV encephalopathy with providing a low baseline mentation in setting of uremia , worsening kidney function may be attributable to bactrum vs HIV nephropathy . Patients BP is holding steady a bit on the low side , waiting to follow up on AFB culture speciation to see if we are attempting to treat MAC vs TB . Hold of on HAART therapy for now while awaiting results for cryptococcal and AFB studies. will hold off Bactrim to avoid worsening keratin from nephrotoxicity and PJP is not a priority to treat at this time 2/: Is breathing on room air and remains largely obtained but is still protecting his airway . lumbar puncture bacterial culture suggests that there is no acute concern for bacterial infection in the CSF . Plan for patient to stop Bactrim due to rising creatine and continue empirical therapy with linezolid and cefepime . will continue to follow up on AFB culture results 07/13: continues to feel lethargic and not really waking up but does respond to sternal rub and is protecting his airway . no neck ridgitiy . AFB cultures have return positive for microbacterial avium complex still awaiting AFB blood and stool to confirm disseminated MAC infection so for now continue linezolid and cefepime therapy in addition will add ethambutol and rifampin and azithromycin via Ngtube . Would recommend repeating EKG to monitor QTC in 5 days as well as check LTFs daily while on rifampin therapy 07/14: C diff testing is negative . renal function continues to worsen . patients altered mental status is likely related to uremia , BUN of 75 , creatine of 4.39 , patient may require dialysis 07/15: patients kidney function continues to decline 07/16: whitecount is 10.1 , BUN 66, kidney function continues to worsen and has diarrhea possibly related to multiple antibiotics given Plan: - stop cefepime due to no longer having fevers - if diarrhea persists would consider acquiring a stool culture , AFP stool and C diff test but can hold off for now - Will talk with pharmacy to add a HAART therapy compatible with patients renal failure to if controlling viremia would help with improving renal function however will need to await for CSF antigen to return Authorized and Performed by: jono apple MD Total critical care time: Approximately 76 minutes Due to a high probability of clinically significant, life threatening deterioration, the patient required my highest level of preparedness to intervene emergently and I personally spent this critical care time directly and personally managing the patient. This critical care time included obtaining a history; examining the patient; pulse oximetry; ordering and review of studies; arranging urgent treatment with development of a management plan; evaluation of patient's response to treatment; frequent reassessment; and, discussions with other providers. This critical care time was performed to assess and manage the high probability of imminent, life-threatening deterioration that could result in multi-organ failure. It was exclusive of separately billable procedures and treating other patients and teaching time. Plan discussed with: Other Dietary Evaluation Review Comments: 1. advance diet when medically feasible: Renal Sepcific 40g Protein restriction diet, supplement his protein needs with clinimix @ 41ml/hr (42.5 gPro 510 kcal) 2. TPN per pharmacy if NPO > 7 days Expected Outcomes/Goals: gradual wt gain, improved nutrition status. grdual healed wounds. JONO APPLE MD Jul 18, 2024 22:14
[2024-07-18] MEDS: TPN PER PHARMACY IV NR (22:20)
--- NOTE | 2024-07-18 22:22 | DVHPN2 ---
Consult Progress Note Date Seen: Jul 17, 2024 Subjective Patient reports: Other (He is protecting his airway , responding to sternal rub , still having very poor mentation and is very solulent , on TPN and piccline in place , having about 200ccs of stool output ) Objective vital signs Vital Sign Date Time Temp Pulse Resp B/P (MAP) Pulse Ox O2 Delivery O2 Flow Rate FiO2 07/18/24 20:30 133 18 136/88 (104) 99 07/18/24 19:15 98.7 98.7 07/18/24 08:00 Room Air* 0 21 Total Intake and Output 07/17/24 07/17/24 07/18/24 15:00 23:00 07:00 Intake Total 1654 ml 1732 ml 1716 ml Output Total 950 ml 1300 ml Balance 1654 ml 782 ml 416 ml medications Current Medications Medications Dose Ordered Sig/Sean Route Start Time Stop Time Status Last Admin Dose Admin Guaifenesin/ Dextromethorphan 10 ml Q4HP PRN PO 06/08/24 11:00 07/10/24 01:48 10 ML Morphine Sulfate 1 mg Q4HPRN PRN IV 06/16/24 14:00 07/17/24 03:47 1 MG Ondansetron HCl 4 mg Q4HP PRN IV 06/21/24 16:00 07/18/24 02:05 4 MG Nystatin 5 ml QID MT 06/27/24 12:00 07/18/24 19:39 5 ML Ursodiol 300 mg BID PO 06/28/24 22:00 07/18/24 09:25 300 MG Morphine Sulfate 2 mg Q4HPRN PRN IV 06/29/24 16:45 07/17/24 01:25 2 MG Docusate Sodium 200 mg DAILYPRN PRN PO 07/02/24 14:30 Artificial Tears 1 drop Q6HP PRN EACHEYE 07/03/24 14:00 07/04/24 05:19 1 DROP Acetaminophen 650 mg Q6HP PRN PO 07/07/24 17:30 07/10/24 16:30 650 MG Linezolid 300 ml @ 150 mls/hr Q12HR IV 07/11/24 22:00 07/18/24 21:43 150 MLS/HR Metoclopramide HCl 5 mg Q8HPRN PRN IV 07/12/24 12:00 07/18/24 20:22 5 MG Diagnostic Test (Pha) 1 strip Q6HR 07/12/24 18:00 07/18/24 19:39 1 STRIP Insulin Human Regular FOLLOW SLIDING SCALE Q6HR SC 07/12/24 18:00 07/18/24 19:40 4 UNITS Dextrose 50 ml UD IV 07/12/24 17:45 Levetiracetam 100 ml @ 400 mls/hr BID IV 07/12/24 22:00 07/18/24 21:43 400 MLS/HR Lorazepam 1 mg Q5MINP PRN IV 07/12/24 21:15 07/17/24 02:39 1 MG Azithromycin 250 ml @ 125 mls/hr DAILY@1800 IV 07/14/24 18:00 07/18/24 19:41 125 MLS/HR Rifampin 600 mg DAILY@2100 GT 07/13/24 21:00 07/17/24 21:10 600 MG Ethambutol HCl 800 mg MWF GT 07/13/24 21:00 07/18/24 09:23 800 MG Phenytoin Sodium 100 mg Q8HR IV 07/14/24 06:00 07/18/24 15:13 100 MG Amino Acids 0 ml @ 0 mls/hr PER PHARMACY IV 07/15/24 22:00 Sodium Bicarbonate 100 ml/Sodium Chloride 1,100 ml @ 100 mls/hr Q11H IV 07/16/24 11:15 07/18/24 14:41 100 MLS/HR Sodium Chloride 10 ml QSHIFT@10,22 IV 07/17/24 22:00 07/18/24 21:43 10 ML Pantoprazole Sodium 40 mg DAILY IV 07/18/24 10:00 07/18/24 09:20 40 MG Fat Emulsion Intravenous 50 ml/ Sodium Chloride 20 meq/Sodium Acetate 60 meq/ Potassium Acetate 40 meq/Calcium Gluconate 2.3 meq/ Magnesium Sulfate 10 meq/ Multivitamins 10 ml/Amino Acids/ Dextrose/Purified Water 1,122.4462 ml @ 46 mls/hr [id number] IV 07/18/24 22:00 07/19/24 21:59 laboratory and microbiology Laboratory Tests 07/18/24 04:48 Test 07/18/24 04:48 Range/Units Serum Glucose 81 74-106 mg/dL Problem List/Assessment/Plan Problems(with codes): (1) Atypical pneumonia (2) HIV (human immunodeficiency virus infection) (3) Elevated liver enzymes (4) Hyponatremia (5) History of SIADH (6) Sclerosing cholangitis associated with HIV disease (7) AIDS (acquired immune deficiency syndrome) Problem List/Assessment/Plan Problem List: Pneumocystis Jerovoci or Carini Pneumonia ( opportunistic infection) AIDS, CD4 count less than 10 Acid-fast bacilli culture positive , Mycobacterium avium complex infection Neutropenic fever UTI Enterococcus faecalis Multifocal pneumonia Septic shock due to pneumonia: Currently off vasopressor Transaminitis with elevated bilirubin ? Age cholangiopathy/medication induced Hyponatremia likely due to SIADH Pulmonary nodule, 2 cm in size Left adrenal nodule Severe anemia Immunosuppressed Homosexual. Assessment: Patient is an HIV patient , 28 years old and diagnosed in May 2024 [facility] and transferred to [facility] . Patient CD4 count of 10 , viral load over 1 million and patient presented with acute hypoxic respiratory failure fevers and has been in hospital for about 1 month and in ICU requiring levofed . has a bronchoscopy done showing BAL cytology finding consistency with PJP pneumonia so started on bactrum from 7 days and then discontinued due to patient developing LFT elevation as well as hyperbilirubinemia . switched to climdamycin then discontinued due to patient improving and put on room ai r, evaluated for TB , AFB sputum has been negative and MTBPCR x2 has been negative however after 2 weeks 1 of patients sputum is growing AFB organism thats yet to be identified. feels a bit weak and has been having weightloss , fevers , chills for the last several months, last febrile was 48 hours ago with a temp of 100.5 and is neuropenic with a whitecount of 1.2 and is tachycardic with HR of 128 . low body weight of 54.1 kg and kexia and poor historia , having anemia with a hemoglobin of 7.6 which has been going down during admission . problem list includes HIV Aids , pneumonia , multi opportunistic organism infection including PJP and possibly TB vs Mac infection , cytopenias , neutropenic fever , sepsis , anemia , UTI with enterococcus . 12 point review systems and vitals signs and relevant imaging has been reviewed by me . plan for patient would be to stop ampicillin and start vancomycin and cefamine empirically due to fevers and unresolved sepsis and continue until fevers have resolved for 48 hours and meutropenia has improved . would check prior hold HAART therapy until TB infection is ruled out as cryptococal toxoplasm and CMV infections . check serologies for these and would restart patient on bactrum to finish 21 day course , will monitor LFTs and anemia . recommend checking AFB blood in stool for further evaluation of MAC infection and follow up on AFB cultures . continue airborne and droplet isolation precautions /; continues to be febrile and was reported by Dr Vu in the AM to be more alert , lethargic and not responding to questions but responding to deep sternal rub . patients whitecount is rising and kidney function is worsening. Is on room air and can forgo PJP treatments since it is unlikely playing a large role in septic picture and patietns on room ait . Patient weighs 106 lbs , so attempt to lower bactrum to 1 double strength tablet 3x a day and monitor kidney function , can stop vancomycin in setting of VEL and will switch to linasolid and continue cefepime. If mentation does not improve in next 24 hours patient will need lumbar puncture. recommend repeating blood cultures and doing a chest ct of abdomen and pelvis 07/11: remains uptunded but is able to protenct airway , underwent a lumbar puncture earlier in the day and is still not responsive and pulling out lines . no fever in the last 24 hours but patient is having rising keratin , BUN 68 which is possibly contributing to an altered mental staus . however would want to rule out any type of infectious meningitis in the setting of AIDs for lumbar punture recommend bacterial AFB fungal culture , viral culture , CMV antibuody , VZV antibody , cryptococcus antibody , coxy antibody , RPR , HSVPR , PCR , VDRL . Continue linazolid and cefepime which will provide patient with adequate menegitis coverage . unclear ideology staus at this stime but suspect its a combination of HIV encephalopathy with providing a low baseline mentation in setting of uremia , worsening kidney function may be attributable to bactrum vs HIV nephropathy . Patients BP is holding steady a bit on the low side , waiting to follow up on AFB culture speciation to see if we are attempting to treat MAC vs TB . Hold of on HAART therapy for now while awaiting results for cryptococcal and AFB studies. will hold off Bactrim to avoid worsening keratin from nephrotoxicity and PJP is not a priority to treat at this time 07/12: Is breathing on room air and remains largely obtained but is still protecting his airway . lumbar puncture bacterial culture suggests that there is no acute concern for bacterial infection in the CSF . Plan for patient to stop Bactrim due to rising creatine and continue empirical therapy with linezolid and cefepime . will continue to follow up on AFB culture results 07/13: continues to feel lethargic and not really waking up but does respond to sternal rub and is protecting his airway . no neck ridgitiy . AFB cultures have return positive for microbacterial avium complex still awaiting AFB blood and stool to confirm disseminated MAC infection so for now continue linezolid and cefepime therapy in addition will add ethambutol and rifampin and azithromycin via Ngtube . Would recommend repeating EKG to monitor QTC in 5 days as well as check LTFs daily while on rifampin therapy 07/14: C diff testing is negative . renal function continues to worsen . patients altered mental status is likely related to uremia , BUN of 75 , creatine of 4.39 , patient may require dialysis 07/15: patients kidney function continues to decline 07/16: whitecount is 10.1 , BUN 66, kidney function continues to worsen and has diarrhea possibly related to multiple antibiotics given 07/17: whitecount is 8.2 , creatine is 4.64 , BUN is 68. evaluation for menegitis when workup is negative , still followup up on multiple serologies / CSF tests , cefepime stopped Plan: - if diarrhea persists would consider acquiring a stool culture ,c.diff testing is negative - Will talk with pharmacy to add a HAART therapy compatible with patients renal failure to if controlling viremia would help with improving renal function however will need to await for CSF antigen to return Authorized and Performed by: Jono Guzman Total critical care time: Approximately 75 minutes Due to a high probability of clinically significant, life threatening deterioration, the patient required my highest level of preparedness to intervene emergently and I personally spent this critical care time directly and personally managing the patient. This critical care time included obtaining a history; examining the patient; pulse oximetry; ordering and review of studies; arranging urgent treatment with development of a management plan; evaluation of patient's response to treatment; frequent reassessment; and, discussions with other providers. This critical care time was performed to assess and manage the high probability of imminent, life-threatening deterioration that could result in multi-organ failure. It was exclusive of separately billable procedures and treating other patients and teaching time. Plan discussed with: Other Dietary Evaluation Review Comments: 1. advance diet when medically feasible: Renal Sepcific 40g Protein restriction diet, supplement his protein needs with clinimix @ 41ml/hr (42.5 gPro 510 kcal) 2. TPN per pharmacy if NPO > 7 days Expected Outcomes/Goals: gradual wt gain, improved nutrition status. grdual healed wounds. JONO GUZMAN MD Jul 18, 2024 22:22
--- NOTE | 2024-07-18 23:38 | DVHPNRES ---
Progress Note Date Seen: Jul 18, 2024 Resident Creating Document: CESAR LIRIANO RESIDENT Has the PT tested + for MRSA If YES, has PT been informed?: Yes Medical Necessity Reason Pt with a Central, PICC or Fol: Yes The following are medically ne: Chua Catheter Reason for chua catheter: Strict I&O Objective vital signs Vital Sign Date Time Temp Pulse Resp B/P (MAP) Pulse Ox O2 Delivery O2 Flow Rate FiO2 07/18/24 22:00 125 07/18/24 20:30 18 136/88 (104) 99 07/18/24 20:00 Room Air* 0 21 07/18/24 19:15 98.7 98.7 Total Intake and Output 07/17/24 07/17/24 07/18/24 15:00 23:00 07:00 Intake Total 1654 ml 1732 ml 1716 ml Output Total 950 ml 1300 ml Balance 1654 ml 782 ml 416 ml medications Current Medications Medications Dose Ordered Sig/Sean Route Start Time Stop Time Status Last Admin Dose Admin Guaifenesin/ Dextromethorphan 10 ml Q4HP PRN PO 06/08/24 11:00 07/10/24 01:48 10 ML Morphine Sulfate 1 mg Q4HPRN PRN IV 06/16/24 14:00 07/17/24 03:47 1 MG Ondansetron HCl 4 mg Q4HP PRN IV 06/21/24 16:00 07/18/24 02:05 4 MG Nystatin 5 ml QID MT 06/27/24 12:00 07/18/24 19:39 5 ML Ursodiol 300 mg BID PO 06/28/24 22:00 07/18/24 09:25 300 MG Morphine Sulfate 2 mg Q4HPRN PRN IV 06/29/24 16:45 07/17/24 01:25 2 MG Docusate Sodium 200 mg DAILYPRN PRN PO 07/02/24 14:30 Artificial Tears 1 drop Q6HP PRN EACHEYE 07/03/24 14:00 07/04/24 05:19 1 DROP Acetaminophen 650 mg Q6HP PRN PO 07/07/24 17:30 07/10/24 16:30 650 MG Linezolid 300 ml @ 150 mls/hr Q12HR IV 07/11/24 22:00 07/18/24 21:43 150 MLS/HR Metoclopramide HCl 5 mg Q8HPRN PRN IV 07/12/24 12:00 07/18/24 20:22 5 MG Diagnostic Test (Pha) 1 strip Q6HR 07/12/24 18:00 07/18/24 19:39 1 STRIP Insulin Human Regular FOLLOW SLIDING SCALE Q6HR SC 07/12/24 18:00 07/18/24 19:40 4 UNITS Dextrose 50 ml UD IV 07/12/24 17:45 Levetiracetam 100 ml @ 400 mls/hr BID IV 07/12/24 22:00 07/18/24 21:43 400 MLS/HR Lorazepam 1 mg Q5MINP PRN IV 07/12/24 21:15 07/17/24 02:39 1 MG Azithromycin 250 ml @ 125 mls/hr DAILY@1800 IV 07/14/24 18:00 07/18/24 19:41 125 MLS/HR Rifampin 600 mg DAILY@2100 GT 07/13/24 21:00 07/17/24 21:10 600 MG Ethambutol HCl 800 mg MWF GT 07/13/24 21:00 07/18/24 09:23 800 MG Phenytoin Sodium 100 mg Q8HR IV 07/14/24 06:00 07/18/24 22:22 100 MG Amino Acids 0 ml @ 0 mls/hr PER PHARMACY IV 07/15/24 22:00 Sodium Bicarbonate 100 ml/Sodium Chloride 1,100 ml @ 100 mls/hr Q11H IV 07/16/24 11:15 07/18/24 14:41 100 MLS/HR Sodium Chloride 10 ml QSHIFT@10,22 IV 07/17/24 22:00 07/18/24 21:43 10 ML Pantoprazole Sodium 40 mg DAILY IV 07/18/24 10:00 07/18/24 09:20 40 MG Fat Emulsion Intravenous 50 ml/ Sodium Chloride 20 meq/Sodium Acetate 60 meq/ Potassium Acetate 40 meq/Calcium Gluconate 2.3 meq/ Magnesium Sulfate 10 meq/ Multivitamins 10 ml/Amino Acids/ Dextrose/Purified Water 1,122.4462 ml @ 46 mls/hr [id number] IV 07/18/24 22:00 07/19/24 21:59 07/18/24 22:20 46 MLS/HR Examination GENERAL:Normal (Looks sick), HEENT:Normal (Oral mucosa dry and cracked , chelitis. ), NECK:Normal, LUNGS:Abnormal (Bilateral basal rales likely due to atelectasis), CVS:Normal (Blood pressure well controlled with the MAP over 65.), ABDOMEN:Normal, MSK:Abnormal (Low muscle mass), SKIN:Abnormal (Low skin turgor), NEURO:Abnormal (Alert but not oriented x1 responding to vocal stimuli), :Abnormal (And retract tube still having brown loose stool) laboratory and microbiology Laboratory Tests 07/18/24 04:48 Test 07/18/24 04:48 Range/Units Serum Glucose 81 74-106 mg/dL Microbiology Date/Time Source Procedure Growth Status 07/13/24 11:38 Stool Clostridium difficile Toxin Assay - Final Complete 07/13/24 07:50 Blood Blood Culture - Final NO GROWTH AFTER 5 DAYS OF INCUBATION. Complete 07/12/24 20:25 Nose MRSA Screen - Final Complete 07/11/24 19:32 Cerebral Spinal Fluid Gram Stain - Final Complete 07/11/24 19:32 Cerebral Spinal Fluid CSF Culture & Gram Stain (Tube 2) M - Final Complete 07/11/24 14:54 Voided Urine Urine Culture - Final Complete 07/07/24 06:10 Sputum Gram Stain - Final Complete 07/07/24 06:10 Respiratory Culture - Final Staphylococcus aureus Complete Labs and/or images reviewed: Labs reviewed by me, Image(s) reviewed by me Problem List/Assessment/Plan Problem List/Assessment/Plan ICU Course: A 28-year-old homosexual male patient; who was recently diagnosed with HIV, not on treatment; who presented with cough to [facility] and was transferred to [facility] for further evaluation and treatment. He has a history of homosexual activity presents with suspected sepsis, acute hypoxic respiratory failure, and bilateral pneumonia, possibly due to atypical infections. They have a productive cough, fever, tachycardia, and decreased oxygen saturation. The patient is on IV antibiotics, oxygen therapy, and nebulizer treatments, with close monitoring and consultations from infectious disease, nephrology and pulmonology teams. Additional concerns include normocytic anemia, elevated liver enzymes, mild hyponatremia, and an elevated D-dimer, with a chest angiogram ordered to rule out DVT. Denies any prior EGD or colonoscopy, family history negative for any GI malignancy. Having recurrent diarrhea. Patient has full-blown AIDS with multiple infections possibly night now having encephalopathy with meningitis. Hospitalization day: 40 day A. Neurolgy: #Metabolic encephalopathy due to sepsis/?meningitis: Head CT unremarkable, p atient is more arousable, more awake, conversant. #?Seizure due to ?Meningitis: Head CT unremarkable, CSF pointing towards viral meningitis likely, neurology on board continue IV Keppra p.r.n. ID on board, continue antibiotics, consider antiviral, not available in local pharmacies. S ocial work consulted for Biktarvy from special pharmacy B. Cardiology: # septic shock: Due to multiple opportunity seeing infections: Off of vasopressor maintaining map over 65, IV fluids as needed C. Respiratory: # acute hypoxic respiratory failure: Recovered # Pneumocystis jiroveci multifocal pneumonia: partially treated likely improve patient is on room air. # Multifocal pneumonia, Pneumocystis Jerovoci or Carini Pneumonia ( opportunistic infection) # Pulmonary nodule, 2 cm in size, accidental finding D. Gastrointenstinal: #Transaminitis with elevated bilirubin ?cholangiopathy/medication induced: Improved, hold oral actigall # antibiotic associated diarrhea: Due to immunocompromised state can not start patient on Florastor patient continues to have greenish liquid stool. C diff toxin negative. Check stool parasite n ova # nutrition: Patient is on enteral nutrition, we will consider further supplementation as per GI with PICC line, continue upgraded nutrition goal as per GI team E. Geniotourinary: # UTI Enterococcus faecalis status post ampicillin stopped by ID F. Infectious Disease: # leukopenia with neutropenic fever ?likely due to sepsis #oral candidiasis: Can not tolerate change to fluconazole IV. #AIDS, CD4 count less than 10: specific treatment: Biktarvy to be arranged inpatient to improved immune function, medications to be arranged with sw from special pharmacy. Potential adverse effect of renal failure and hepatic failure needs further discussion with the family. We will wait for further input from ID team for toxoplasma, coccidiomycosis, HIV viral titer, and HIV antigen typing. #Acid-fast bacilli culture positive likely MAC infection: Patient on antibiotics, continue ID on board. Rifampin, ethambutol to hold for now. As patient is nauseous. Vomiting and aspiration we will have more harm than benefit of the treatment for MAC itself #Pneumocystis Jerovoci or Carini Pneumonia ( opportunistic infection): Partially treated. # respiratory culture positive for MRSA, continue antibiotics G. Hematology & Oncology: # microcytic anemia, Severe, requiring blood transfusion: Status post 1 unit PRBC, daily CBC H. Nephrology: #VEL due to ?bacterim use: Close I&O patient is making urine, conservative management daily BNP nephrology on board continue IV fluids, satisfactory I/0, daily BNP to follow #Hyponatremia ?SIADH due to PCP pneumonia/bacterim improved #hypokalemia: Recurrent slowly correct hypokalemia with 40 IV potassium with repeat potassium check as kidney functions poor, slow correction #Hyperkalemia: Previously corrected I. Endocrine: #Left adrenal nodule: Morning cortisol elevated on 07/10/2024 45.68 J. MSK: # mild to moderate malnutrition with loss of muscle mass K. Prophylaxis: PPI: Pantoprazole Oral DVT: SCDs L. Lines & Drains (with insertion date): NG tube IV lines infiltrated, removed, PICC line inserted on 07/17 N. Disposition: Remains STELLA Updated family, uncle, other family members and friends without diverging sensory patient data. As of now family agreed that power of assistant district attorney Tri (close friend), designated by the patient for all decision-making. Appropriate paperwork and further discussion for rest of the team. Considering in-hospital Biktarvy we will need further discussion with Tri/HIGINIO with potential adverse effects. The plan was discussed with the ICU attending Dr. Pettit. The patient care consists of total 83 minutes of critical care time excluding the procedures. Dictated by Cesar Liriano MD with 3M MModal Fluency. Plan discussed with: Patient, Other (Primary team) My Orders My Orders Orders - CESAR LIRIANO RESIDENT Procedure Category Date Status Time Communication Order ORDERS 07/18/24 Transmitted 19:42 Dietary Evaluation Review Comments: 1. advance diet when medically feasible: Renal Sepcific 40g Protein restriction diet, supplement his protein needs with clinimix @ 41ml/hr (42.5 gPro 510 kcal) 2. TPN per pharmacy if NPO > 7 days Expected Outcomes/Goals: gradual wt gain, improved nutrition status. grdual healed wounds. Date of Service: Jul 18, 2024 Billing Provider: ANDRE PETTIT MD Common Visit Codes: 20528-QADLIMYP CARE 30-74 MIN, 06330-UERMSHEZ CARE-EACH +30MIN CESAR LIRIANO Jul 18, 2024 23:38 ANDRE PETTIT MD Jul 19, 2024 12:53
[2024-07-19] VITALS (102 sets, daily range): BP systolic 107–148; BP diastolic 68–86; PULSE 87–150; RESP 10–26; TEMP 97.3–102.6; O2SAT 89–100
[2024-07-19] MEDS: ACETAMINOPHEN IV 1000 MG/100ML (10MG/ML) IV ONE ×2 (05:16→20:11)
[2024-07-19 05:33] LABS: Mean Corpuscular Hgb Conc. 35.1 g/dL (32.0-36.0); Mean Corpuscular Volume 79.7 fL (80.0-100.0); Platelet Count (auto) 295 10^3/uL (140-450); Red Blood Cells 2.39 10^6/uL (4.5-5.90); White Blood Cell 7.3 10^3/uL (4.4-10.8)
[2024-07-19 05:39] LABS: Red Cell Distribution Width 20.3 % (11.8-14.3)
[2024-07-19 05:40] LABS: Hemoglobin 6.7 g/dL (13.5-17.5)
[2024-07-19 05:41] LABS: Basophils % (manual) 0 (0.0-2.0); Blast Cells 0; Eosinophils % (manual) 0 (0-7); Promyelocytes % 0; Reactive Lymphocytes 0
[2024-07-19 05:47] LABS: Alanine Aminotransferase 18 U/L (7-40); Anion Gap 10 (5-15); BUN/Creatinine Ratio 14.6 (10.0-20.0); Carbon Dioxide 27 mmol/L (20-31); Chloride 103 mmol/L (98-107); Phosphorus 3.3 mg/dL (2.4-5.1); Potassium 3.7 mmol/L (3.5-5.1); Sodium 140 mmol/L (136-145)
[2024-07-19 05:51] LABS: Albumin 2.8 g/dL (3.2-4.8); Alkaline Phosphatase 346 U/L (46-116); Aspartate Aminotransferase 41 U/L (13-40); Bilirubin, Total 1.5 mg/dL (0.2-1.0); Blood Urea Nitrogen 63 mg/dL (9-23); Glucose 112 mg/dL (74-106)
[2024-07-19 06:19] LABS: Band Neutrophils % (manual) 4; Lymphocytes % (manual) 5 (10.0-50.0); Metamyelocytes % 2; Monocytes % (manual) 8 (0-12); Myelocytes % 3
[2024-07-19 06:24] LABS: Platelet Estimate Adequate
--- NOTE | 2024-07-19 09:11 | DVHPN2 ---
Progress Note Date Seen: Jul 19, 2024 Has the PT tested + for MRSA If YES, has PT been informed?: Yes Medical Necessity Reason Pt with a Central, PICC or Fol: Yes The following are medically ne: Chua Catheter Reason for chua catheter: Strict I&O Subjective Patient reports: No new complaints Other Systems: Patient seen and examined by myself today in follow-up Objective vital signs Vital Sign Date Time Temp Pulse Resp B/P (MAP) Pulse Ox O2 Delivery O2 Flow Rate FiO2 07/19/24 08:00 97.3 111 14 116/82 (93) 94 97.3 07/18/24 20:00 Room Air* 0 21 Total Intake and Output 07/18/24 07/18/24 07/19/24 15:00 23:00 07:00 Intake Total 172 ml 1694 ml 1268 ml Output Total 1445 ml 1330 ml Balance 172 ml 249 ml -62 ml medications Current Medications Medications Dose Ordered Sig/Sean Route Start Time Stop Time Status Last Admin Dose Admin Guaifenesin/ Dextromethorphan 10 ml Q4HP PRN PO 06/08/24 11:00 07/10/24 01:48 10 ML Morphine Sulfate 1 mg Q4HPRN PRN IV 06/16/24 14:00 07/17/24 03:47 1 MG Ondansetron HCl 4 mg Q4HP PRN IV 06/21/24 16:00 07/18/24 02:05 4 MG Nystatin 5 ml QID MT 06/27/24 12:00 07/19/24 06:06 5 ML Ursodiol 300 mg BID PO 06/28/24 22:00 07/18/24 09:25 300 MG Morphine Sulfate 2 mg Q4HPRN PRN IV 06/29/24 16:45 07/17/24 01:25 2 MG Docusate Sodium 200 mg DAILYPRN PRN PO 07/02/24 14:30 Artificial Tears 1 drop Q6HP PRN EACHEYE 07/03/24 14:00 07/04/24 05:19 1 DROP Acetaminophen 650 mg Q6HP PRN PO 07/07/24 17:30 07/10/24 16:30 650 MG Linezolid 300 ml @ 150 mls/hr Q12HR IV 07/11/24 22:00 07/19/24 08:25 150 MLS/HR Metoclopramide HCl 5 mg Q8HPRN PRN IV 07/12/24 12:00 07/19/24 08:24 5 MG Diagnostic Test (Pha) 1 strip Q6HR 07/12/24 18:00 07/19/24 06:06 1 STRIP Insulin Human Regular FOLLOW SLIDING SCALE Q6HR SC 07/12/24 18:00 07/18/24 19:40 4 UNITS Dextrose 50 ml UD IV 07/12/24 17:45 Levetiracetam 100 ml @ 400 mls/hr BID IV 07/12/24 22:00 07/19/24 08:25 400 MLS/HR Lorazepam 1 mg Q5MINP PRN IV 07/12/24 21:15 07/17/24 02:39 1 MG Azithromycin 250 ml @ 125 mls/hr DAILY@1800 IV 07/14/24 18:00 07/18/24 19:41 125 MLS/HR Rifampin 600 mg DAILY@2100 GT 07/13/24 21:00 07/17/24 21:10 600 MG Ethambutol HCl 800 mg MWF GT 07/13/24 21:00 07/18/24 09:23 800 MG Phenytoin Sodium 100 mg Q8HR IV 07/14/24 06:00 07/19/24 06:06 100 MG Amino Acids 0 ml @ 0 mls/hr PER PHARMACY IV 07/15/24 22:00 Sodium Bicarbonate 100 ml/Sodium Chloride 1,100 ml @ 100 mls/hr Q11H IV 07/16/24 11:15 07/19/24 01:26 100 MLS/HR Sodium Chloride 10 ml QSHIFT@10,22 IV 07/17/24 22:00 07/19/24 08:24 10 ML Pantoprazole Sodium 40 mg DAILY IV 07/18/24 10:00 07/19/24 08:25 40 MG Fat Emulsion Intravenous 50 ml/ Sodium Chloride 20 meq/Sodium Acetate 60 meq/ Potassium Acetate 40 meq/Calcium Gluconate 2.3 meq/ Magnesium Sulfate 10 meq/ Multivitamins 10 ml/Amino Acids/ Dextrose/Purified Water 1,122.4462 ml @ 46 mls/hr [id number] IV 07/18/24 22:00 07/19/24 21:59 07/18/24 22:20 46 MLS/HR Examination: LUNGS:Normal, CVS:Normal, MSK:Normal laboratory and microbiology Laboratory Tests 07/19/24 04:50 Test 07/19/24 04:50 Range/Units Serum Glucose 112 H 74-106 mg/dL Microbiology Date/Time Source Procedure Growth Status 07/13/24 11:38 Stool Clostridium difficile Toxin Assay - Final Complete 07/13/24 07:50 Blood Blood Culture - Final NO GROWTH AFTER 5 DAYS OF INCUBATION. Complete 07/12/24 20:25 Nose MRSA Screen - Final Complete 07/11/24 19:32 Cerebral Spinal Fluid Gram Stain - Final Complete 07/11/24 19:32 Cerebral Spinal Fluid CSF Culture & Gram Stain (Tube 2) M - Final Complete 07/11/24 14:54 Voided Urine Urine Culture - Final Complete 07/07/24 06:10 Sputum Gram Stain - Final Complete 07/07/24 06:10 Respiratory Culture - Final Staphylococcus aureus Complete Problem List/Assessment/Plan Problem List/Assessment/Plan Acute kidney injury secondary hemodynamic mediated ATN, feNa > 2% nonoliguric Creatinine was 0.6 on 07/09/2024 Hyponatremia secondary to excess H2O Hypokalemia Diarrhea Metabolic acidosis Seizures Encephalopathy AIDS Jaundice Transaminitis Hypoalbuminemia PCP on bactrim IV now switched to p.o. PNA Anemia due to blood loss status post packed red blood cell transfusion Recommendations Kidney function slightly improved today Increased urine output Metabolic acidosis resolved KCL replacement IVF NS @ 60 cc/hour KCL replacement Albumin 25% IV piggyback Kidney ultrasound reported bilateral echogenic kidney ID consult will continue to follow Plan discussed with: Other (Nurse) Dietary Evaluation Review Comments: 1. advance diet when medically feasible: Renal Sepcific 40g Protein restriction diet, supplement his protein needs with clinimix @ 41ml/hr (42.5 gPro 510 kcal) 2. TPN per pharmacy if NPO > 7 days Expected Outcomes/Goals: gradual wt gain, improved nutrition status. grdual healed wounds. YONATHAN YAÑEZ MD Jul 19, 2024 09:11
[2024-07-19] MEDS: SODIUM CHLORIDE 0.9% 1,000 ML IV SCH (09:15)
--- NOTE | 2024-07-19 10:34 | DVHPN2 ---
Progress Note - Dictate Date Seen: Jul 19, 2024 Has the PT tested + for MRSA If YES, has PT been informed?: Yes Medical Necessity Reason Pt with a Central, PICC or Fol: Yes The following are medically ne: Chua Catheter Reason for chua catheter: Strict I&O Subjective PATIENT DOES NOT WANT ANY INFORMATION SHARED 07/13/24 Re-Assessment Re: HIGINIO HUANG spoke with patient uncle Blaine ([phone]) in regards to patients wishes when he was a/ox4. Per patient he did not want any family to be provided with any medical information. Since patient is unable to make any medical decisions at that moment, who will make any medical decisions would have to be determined. Boom Conveyor Operator will be consulted. Per patients Uncle patient has no Next of Kin, last remaining member of his immediate family. On 07/15/24, his nurse told me that I could talk to his uncle and friend, Aleena Moss is a 28 years old gentleman with a history of HIV/aids, he was transferred from the [facility] on 06/08/2024 for further evaluation treatment. On 07/11/24, he had seizure-like activity however his nurse and medical staff did not witnessed symptoms. I have seen and examined the patient, I have talked to his nurse other medical staff, he is awake, able to speak a little bit, he likely knew he was in the hospital No seizure symptoms reported Phenytoin, 07/14/2024:15.7 (Alb: 2.8), 07/15/2024: 12.9 CSF, 07/11/2024: RBC: Five, protein: 46 found eight, glucose: 49 UDS, 06/26/2024: Opiates Plasma alcohol, 06/25/2024: Normal Urinalysis, 07/17/2024: WBC: Negative, urine leukocyte esterase: Negative WBC/HB/PLT/MCV, 07/12/2024: 4.4/6.4/331/78 0.1 PT/INR/PTT, 06/15/2024: 0.2/35/29/112, 06/12/2024: 11.1/1.06/29.3 Na, 06/08/2024: 136, 06/15/24:129, 06/20/24: 122, 06/24/2024: 117, 06/25 06/30: 121, 07/03/2024: 120, 07/06/2024: 123, 07/12/24: 132 BUN/CR, 07/02/2024: 15/0.49 07/12/2024: 68/4.30 TBI/AST/ALT/AP, 06/24/2024: 4.10/2515/1321/482, 07/02/2024: 9.8/71/196/710, 07/12/2024: 3.2/79/50/395 EEG, 07/13/2024: Electrographic status epileptics EEG, 07/17/2024: Moderate to severely abnormal EEG CT head, 07/11/2024: No acute intracranial proces CT head, 07/15/2024: No evidence of acute intracranial abnormality MRI head, 07/06/2024: No acute cardiopulmonary disease. vital signs Vital Sign Date Time Temp Pulse Resp B/P (MAP) Pulse Ox O2 Delivery O2 Flow Rate FiO2 07/19/24 08:00 97.3 111 14 116/82 (93) 94 97.3 07/18/24 20:00 Room Air* 0 21 Total Intake and Output 07/18/24 07/18/24 07/19/24 15:00 23:00 07:00 Intake Total 172 ml 1694 ml 1268 ml Output Total 1445 ml 1330 ml Balance 172 ml 249 ml -62 ml medications Current Medications Medications Dose Ordered Sig/Sean Route Start Time Stop Time Status Last Admin Dose Admin Guaifenesin/ Dextromethorphan 10 ml Q4HP PRN PO 06/08/24 11:00 07/10/24 01:48 10 ML Morphine Sulfate 1 mg Q4HPRN PRN IV 06/16/24 14:00 07/17/24 03:47 1 MG Ondansetron HCl 4 mg Q4HP PRN IV 06/21/24 16:00 07/18/24 02:05 4 MG Nystatin 5 ml QID MT 06/27/24 12:00 07/19/24 06:06 5 ML Ursodiol 300 mg BID PO 06/28/24 22:00 07/18/24 09:25 300 MG Morphine Sulfate 2 mg Q4HPRN PRN IV 06/29/24 16:45 07/17/24 01:25 2 MG Docusate Sodium 200 mg DAILYPRN PRN PO 07/02/24 14:30 Artificial Tears 1 drop Q6HP PRN EACHEYE 07/03/24 14:00 07/04/24 05:19 1 DROP Acetaminophen 650 mg Q6HP PRN PO 07/07/24 17:30 07/10/24 16:30 650 MG Linezolid 300 ml @ 150 mls/hr Q12HR IV 07/11/24 22:00 07/19/24 08:25 150 MLS/HR Metoclopramide HCl 5 mg Q8HPRN PRN IV 07/12/24 12:00 07/19/24 08:24 5 MG Diagnostic Test (Pha) 1 strip Q6HR 07/12/24 18:00 07/19/24 06:06 1 STRIP Insulin Human Regular FOLLOW SLIDING SCALE Q6HR SC 07/12/24 18:00 07/18/24 19:40 4 UNITS Dextrose 50 ml UD IV 07/12/24 17:45 Levetiracetam 100 ml @ 400 mls/hr BID IV 07/12/24 22:00 07/19/24 08:25 400 MLS/HR Lorazepam 1 mg Q5MINP PRN IV 07/12/24 21:15 07/17/24 02:39 1 MG Azithromycin 250 ml @ 125 mls/hr DAILY@1800 IV 07/14/24 18:00 07/18/24 19:41 125 MLS/HR Rifampin 600 mg DAILY@2100 GT 07/13/24 21:00 07/17/24 21:10 600 MG Ethambutol HCl 800 mg MWF GT 07/13/24 21:00 07/18/24 09:23 800 MG Phenytoin Sodium 100 mg Q8HR IV 07/14/24 06:00 07/19/24 06:06 100 MG Amino Acids 0 ml @ 0 mls/hr PER PHARMACY IV 07/15/24 22:00 Sodium Chloride 10 ml QSHIFT@10,22 IV 07/17/24 22:00 07/19/24 08:24 10 ML Pantoprazole Sodium 40 mg DAILY IV 07/18/24 10:00 07/19/24 08:25 40 MG Fat Emulsion Intravenous 50 ml/ Sodium Chloride 20 meq/Sodium Acetate 60 meq/ Potassium Acetate 40 meq/Calcium Gluconate 2.3 meq/ Magnesium Sulfate 10 meq/ Multivitamins 10 ml/Amino Acids/ Dextrose/Purified Water 1,122.4462 ml @ 46 mls/hr [id number] IV 07/18/24 22:00 07/19/24 21:59 07/18/24 22:20 46 MLS/HR Sodium Chloride 1,000 ml @ 60 mls/hr [id number] IV 07/19/24 09:15 objective General: the patient is well developed and nourished. No acute distress. MENTAL STATUS: Subjective SPEECH, LANGUAGE, HIGHER CORTICAL FUNCTION: Deferred CRANIAL NERVES: Pupils are equal, round and reactive. There is conjugated eye more sometimes, no sign of facial weakness SENSATION: Responds to light touch MOTOR: Normal tone in the upper and lower extremity. Subjective REFLEXES: Deep tendon reflexes are symmetrical. No pathological reflexes. CEREBELLAR/COORDINATION: Deferred GAIT/STATION: deferred laboratory and microbiology Laboratory Tests 07/19/24 04:50 Test 07/19/24 04:50 Range/Units Serum Glucose 112 H 74-106 mg/dL Problem List Witnessed seizure-like activity Altered mental status Status epilepticus Metabolic encephalopathy Aids Anemia Leukopenia Kidney failure Elevated liver function tests Hyponatremia Assessment/Plan Monitoring Supportive treatment STELLA care Aerosol isolation Oxygen Respiratory support p.r.n. Stabilize vitals p.r.n. IV antibiotics Dilantin 100 mg IV Q 8 hours Keppra 1000 mg b.i.d. Ativan for seizure breakthrough TPN More recommendation per clinical course This medical document was created using an electronic medical record system with [employer] dictation system. Although this document has been carefully reviewed, there may still be some phonetic and typographical errors. These areas are purely typographical due to imperfections of the software programs, and do not reflect any compromise in the patient's medical care Prognosis poor Dietary Evaluation Review Comments: 1. advance diet when medically feasible: Renal Sepcific 40g Protein restriction diet, supplement his protein needs with clinimix @ 41ml/hr (42.5 gPro 510 kcal) 2. TPN per pharmacy if NPO > 7 days Expected Outcomes/Goals: gradual wt gain, improved nutrition status. grdual healed wounds. Plan discussed with: Other JEFFERY CHAVEZ MD Jul 19, 2024 10:34
--- NOTE | 2024-07-19 10:56 | DVHPNRES ---
Progress Note Date Seen: Jul 19, 2024 Resident Creating Document: ELVA SAEZ RESIDENT Has the PT tested + for MRSA If YES, has PT been informed?: Yes Medical Necessity Reason Pt with a Central, PICC or Fol: Yes The following are medically ne: Chua Catheter Reason for chua catheter: Strict I&O Subjective Review of Systems Patient seen and examined at bedside. Patient continued to have poor mentation with GCS approximately 9-10. Still somnolent. Receiving nutrition TPN via PICC line. still episodes of vomiting. Physical Exam General Appearance: Altered, protecting his airway, responding to pain stimuli, reactive pupils, Head Exam: Normal inspection Neck Exam: Normal inspection. Non-tender. Normal alignment Pulmonary/Respiratory: Chest non-tender. Clear bilateral breath sounds Cardiovascular/Chest: Regular rate and rhythm. No murmurs. No JVD. Peripheral Pulses: 2+ Radial (R). 2+ Radial (L). 2+ Pedal (R). 2+ Pedal (L) Abdominal Exam: Normal bowel sounds. Soft. Nontender. No hepatospenomegaly. No masses Ankle Exam: Negative ankle edema Lower extremities: Negative lower extremity edema Neuro/Mental Status: Alert, not oriented to time place and person. Pupillary reflex present, upper and and lower extremity muscular strength 4/5. Sensory examination can not be done Objective vital signs Vital Sign Date Time Temp Pulse Resp B/P (MAP) Pulse Ox O2 Delivery O2 Flow Rate FiO2 07/19/24 08:00 97.3 111 14 116/82 (93) 94 97.3 07/18/24 20:00 Room Air* 0 21 Total Intake and Output 07/18/24 07/18/24 07/19/24 15:00 23:00 07:00 Intake Total 172 ml 1694 ml 1268 ml Output Total 1445 ml 1330 ml Balance 172 ml 249 ml -62 ml medications Current Medications Medications Dose Ordered Sig/Sean Route Start Time Stop Time Status Last Admin Dose Admin Guaifenesin/ Dextromethorphan 10 ml Q4HP PRN PO 06/08/24 11:00 07/10/24 01:48 10 ML Morphine Sulfate 1 mg Q4HPRN PRN IV 06/16/24 14:00 07/17/24 03:47 1 MG Ondansetron HCl 4 mg Q4HP PRN IV 06/21/24 16:00 07/18/24 02:05 4 MG Nystatin 5 ml QID MT 06/27/24 12:00 07/19/24 06:06 5 ML Ursodiol 300 mg BID PO 06/28/24 22:00 07/18/24 09:25 300 MG Morphine Sulfate 2 mg Q4HPRN PRN IV 06/29/24 16:45 07/17/24 01:25 2 MG Docusate Sodium 200 mg DAILYPRN PRN PO 07/02/24 14:30 Artificial Tears 1 drop Q6HP PRN EACHEYE 07/03/24 14:00 07/04/24 05:19 1 DROP Acetaminophen 650 mg Q6HP PRN PO 07/07/24 17:30 07/10/24 16:30 650 MG Linezolid 300 ml @ 150 mls/hr Q12HR IV 07/11/24 22:00 07/19/24 08:25 150 MLS/HR Metoclopramide HCl 5 mg Q8HPRN PRN IV 07/12/24 12:00 07/19/24 08:24 5 MG Diagnostic Test (Pha) 1 strip Q6HR 07/12/24 18:00 07/19/24 06:06 1 STRIP Insulin Human Regular FOLLOW SLIDING SCALE Q6HR SC 07/12/24 18:00 07/18/24 19:40 4 UNITS Dextrose 50 ml UD IV 07/12/24 17:45 Levetiracetam 100 ml @ 400 mls/hr BID IV 07/12/24 22:00 07/19/24 08:25 400 MLS/HR Lorazepam 1 mg Q5MINP PRN IV 07/12/24 21:15 07/17/24 02:39 1 MG Azithromycin 250 ml @ 125 mls/hr DAILY@1800 IV 07/14/24 18:00 07/18/24 19:41 125 MLS/HR Rifampin 600 mg DAILY@2100 GT 07/13/24 21:00 07/17/24 21:10 600 MG Ethambutol HCl 800 mg MWF GT 07/13/24 21:00 07/18/24 09:23 800 MG Phenytoin Sodium 100 mg Q8HR IV 07/14/24 06:00 07/19/24 06:06 100 MG Amino Acids 0 ml @ 0 mls/hr PER PHARMACY IV 07/15/24 22:00 Sodium Chloride 10 ml QSHIFT@10,22 IV 07/17/24 22:00 07/19/24 08:24 10 ML Fat Emulsion Intravenous 50 ml/ Sodium Chloride 20 meq/Sodium Acetate 60 meq/ Potassium Acetate 40 meq/Calcium Gluconate 2.3 meq/ Magnesium Sulfate 10 meq/ Multivitamins 10 ml/Amino Acids/ Dextrose/Purified Water 1,122.4462 ml @ 46 mls/hr [id number] IV 07/18/24 22:00 07/19/24 21:59 07/18/24 22:20 46 MLS/HR Sodium Chloride 1,000 ml @ 60 mls/hr [id number] IV 07/19/24 09:15 Pantoprazole Sodium 40 mg BID IV 07/19/24 11:00 UNV laboratory and microbiology Laboratory Tests 07/19/24 04:50 Test 07/19/24 04:50 Range/Units Serum Glucose 112 H 74-106 mg/dL Microbiology Date/Time Source Procedure Growth Status 07/13/24 11:38 Stool Clostridium difficile Toxin Assay - Final Complete 07/13/24 07:50 Blood Blood Culture - Final NO GROWTH AFTER 5 DAYS OF INCUBATION. Complete 07/12/24 20:25 Nose MRSA Screen - Final Complete 07/11/24 19:32 Cerebral Spinal Fluid Gram Stain - Final Complete 07/11/24 19:32 Cerebral Spinal Fluid CSF Culture & Gram Stain (Tube 2) M - Final Complete 07/11/24 14:54 Voided Urine Urine Culture - Final Complete 07/07/24 06:10 Sputum Gram Stain - Final Complete 07/07/24 06:10 Respiratory Culture - Final Staphylococcus aureus Complete Problem List/Assessment/Plan Problem List/Assessment/Plan Pneumocystis Jerovoci or Carini Pneumonia ( opportunistic infection) AIDS, CD4 count less than 10 Acid-fast bacilli culture positive , Mycobacterium avium complex infection Neutropenic fever UTI Enterococcus faecalis Multifocal pneumonia Septic shock due to pneumonia: Currently off vasopressor Transaminitis with elevated bilirubin ? Age cholangiopathy/medication induced Hyponatremia likely due to SIADH Pulmonary nodule, 2 cm in size Left adrenal nodule Severe anemia Immunosuppressed Homosexual Seizure Plan/recommendation Dr. Robins -receiving TPN via PICC line. Continue current management. ondansetron 4 mg IV BID -correct electrolytes including potassium: As per hospitalist/nephrology team recommendation. -patient recently diagnosed with MAC infection, HIV, PCP pneumonia. antibiotics as per ID recommendation. Currently on rifampin ethambutol and azithromycin. Continue following liver function tests. -liver function tests continuously trending down. -GI will be standing by in case for any acute need for GI intervention. -prognosis remained guarded. -PUD prophylaxis with Protonix 40 mg p.o. daily. Plan discussed with: Patient, Other Dietary Evaluation Review Comments: 1. advance diet when medically feasible: Renal Sepcific 40g Protein restriction diet, supplement his protein needs with clinimix @ 41ml/hr (42.5 gPro 510 kcal) 2. TPN per pharmacy if NPO > 7 days Expected Outcomes/Goals: gradual wt gain, improved nutrition status. grdual healed wounds. ELVA SAEZ RESIDENT Jul 19, 2024 10:56
[2024-07-19 11:37] LABS: CAP Mandated Reflex to Culture Not Indicated; Cryptococcus Antigen CSF Negative; HSV-1 DNA CSF Negative; HSV-2 DNA Negative
[2024-07-19 11:38] LABS: VDRL, Cererbrospinal Fluid Non Reactive
--- NOTE | 2024-07-19 12:39 | DVHPN2 ---
Consult Progress Note Date Seen: Jul 18, 2024 Subjective Patient reports: Other (still remains lethargic and only waking to sternal rub , is being evaluated for dialysis line placement. Hes having some diarrhea thats about same in volume yesterday) Objective vital signs Vital Sign Date Time Temp Pulse Resp B/P (MAP) Pulse Ox O2 Delivery O2 Flow Rate FiO2 07/19/24 12:18 97.8 135 19 123/80 97.8 07/19/24 11:30 98 07/19/24 08:00 Room Air* 0 21 Total Intake and Output 07/18/24 07/18/24 07/19/24 15:00 23:00 07:00 Intake Total 172 ml 1694 ml 1314 ml Output Total 1445 ml 1330 ml Balance 172 ml 249 ml -16 ml medications Current Medications Medications Dose Ordered Sig/Sean Route Start Time Stop Time Status Last Admin Dose Admin Guaifenesin/ Dextromethorphan 10 ml Q4HP PRN PO 06/08/24 11:00 07/10/24 01:48 10 ML Morphine Sulfate 1 mg Q4HPRN PRN IV 06/16/24 14:00 07/17/24 03:47 1 MG Ondansetron HCl 4 mg Q4HP PRN IV 06/21/24 16:00 07/18/24 02:05 4 MG Nystatin 5 ml QID MT 06/27/24 12:00 07/19/24 06:06 5 ML Ursodiol 300 mg BID PO 06/28/24 22:00 07/18/24 09:25 300 MG Morphine Sulfate 2 mg Q4HPRN PRN IV 06/29/24 16:45 07/17/24 01:25 2 MG Docusate Sodium 200 mg DAILYPRN PRN PO 07/02/24 14:30 Artificial Tears 1 drop Q6HP PRN EACHEYE 07/03/24 14:00 07/04/24 05:19 1 DROP Acetaminophen 650 mg Q6HP PRN PO 07/07/24 17:30 07/10/24 16:30 650 MG Linezolid 300 ml @ 150 mls/hr Q12HR IV 07/11/24 22:00 07/19/24 08:25 150 MLS/HR Metoclopramide HCl 5 mg Q8HPRN PRN IV 07/12/24 12:00 07/19/24 08:24 5 MG Diagnostic Test (Pha) 1 strip Q6HR 07/12/24 18:00 07/19/24 06:06 1 STRIP Insulin Human Regular FOLLOW SLIDING SCALE Q6HR SC 07/12/24 18:00 07/18/24 19:40 4 UNITS Dextrose 50 ml UD IV 07/12/24 17:45 Levetiracetam 100 ml @ 400 mls/hr BID IV 07/12/24 22:00 07/19/24 08:25 400 MLS/HR Lorazepam 1 mg Q5MINP PRN IV 07/12/24 21:15 07/17/24 02:39 1 MG Azithromycin 250 ml @ 125 mls/hr DAILY@1800 IV 07/14/24 18:00 07/18/24 19:41 125 MLS/HR Rifampin 600 mg DAILY@2100 GT 07/13/24 21:00 07/17/24 21:10 600 MG Ethambutol HCl 800 mg MWF GT 07/13/24 21:00 07/18/24 09:23 800 MG Phenytoin Sodium 100 mg Q8HR IV 07/14/24 06:00 07/19/24 06:06 100 MG Amino Acids 0 ml @ 0 mls/hr PER PHARMACY IV 07/15/24 22:00 Sodium Chloride 10 ml QSHIFT@10,22 IV 07/17/24 22:00 07/19/24 08:24 10 ML Fat Emulsion Intravenous 50 ml/ Sodium Chloride 20 meq/Sodium Acetate 60 meq/ Potassium Acetate 40 meq/Calcium Gluconate 2.3 meq/ Magnesium Sulfate 10 meq/ Multivitamins 10 ml/Amino Acids/ Dextrose/Purified Water 1,122.4462 ml @ 46 mls/hr [id number] IV 07/18/24 22:00 07/19/24 21:59 07/18/24 22:20 46 MLS/HR Sodium Chloride 1,000 ml @ 60 mls/hr [id number] IV 07/19/24 09:15 07/19/24 09:15 60 MLS/HR Pantoprazole Sodium 40 mg BID IV 07/19/24 22:00 Fat Emulsion Intravenous 50 ml/ Sodium Phosphate 20 meq/Potassium Chloride 20 meq/ Potassium Acetate 30 meq/Calcium Gluconate 3.5 meq/ Magnesium Sulfate 12 meq/ Multivitamins 10 ml/Amino Acids/ Dextrose/Purified Water 1,200.5268 ml @ 50 mls/hr Q24H1M IV 07/19/24 22:00 07/20/24 21:59 Erythromycin 1 applic Q4HR OP 07/19/24 14:00 Physical Exam General Appearance: Cooperative. Well developed. Thin body habitus. NAD Head Exam: Normal inspection Neck Exam: Normal inspection. Non-tender. Normal alignment Pulmonary/Respiratory: Chest non-tender. Clear bilateral breath sounds Cardiovascular/Chest: Regular rate and rhythm. No murmurs. No JVD. Peripheral Pulses: 2+ Radial (R). 2+ Radial (L). 2+ Pedal (R). 2+ Pedal (L) Abdominal Exam: Normal bowel sounds. Soft. Nontender. No hepatospenomegaly. No masses Ankle Exam: Negative ankle edema Lower extremities: Negative lower extremity edema Neuro/Mental Status: A&O x4. Coherent Thoughts/Psych: Normal thought pattern. Appropriate mood and affect. Good judgement and insight Appearance: In no acute distress Skin Exam: Normal inspection. Normal color. Warm. 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 Age cholangiopathy/medication induced Hyponatremia likely due to SIADH Pulmonary nodule, 2 cm in size Left adrenal nodule Severe anemia Immunosuppressed Homosexual. Assessment: Patient is an HIV patient , 28 years old and diagnosed in May 2024 [facility] and transferred to [facility] . Patient CD4 count of 10 , viral load over 1 million and patient presented with acute hypoxic respiratory failure fevers and has been in hospital for about 1 month and in ICU requiring levofed . has a bronchoscopy done showing BAL cytology finding consistency with PJP pneumonia so started on bactrum from 7 days and then discontinued due to patient developing LFT elevation as well as hyperbilirubinemia . switched to climdamycin then discontinued due to patient improving and put on room ai r, evaluated for TB , AFB sputum has been negative and MTBPCR x2 has been negative however after 2 weeks 1 of patients sputum is growing AFB organism thats yet to be identified. feels a bit weak and has been having weightloss , fevers , chills for the last several months, last febrile was 48 hours ago with a temp of 100.5 and is neuropenic with a whitecount of 1.2 and is tachycardic with HR of 128 . low body weight of 54.1 kg and kexia and poor historia , having anemia with a hemoglobin of 7.6 which has been going down during admission . problem list includes HIV Aids , pneumonia , multi opportunistic organism infection including PJP and possibly TB vs Mac infection , cytopenias , neutropenic fever , sepsis , anemia , UTI with enterococcus . 12 point review systems and vitals signs and relevant imaging has been reviewed by me . plan for patient would be to stop ampicillin and start vancomycin and cefamine empirically due to fevers and unresolved sepsis and continue until fevers have resolved for 48 hours and meutropenia has improved . would check prior hold HAART therapy until TB infection is ruled out as cryptococal toxoplasm and CMV infections . check serologies for these and would restart patient on bactrum to finish 21 day course , will monitor LFTs and anemia . recommend checking AFB blood in stool for further evaluation of MAC infection and follow up on AFB cultures . continue airborne and droplet isolation precautions 2/4; continues to be febrile and was reported by Dr Vu in the AM to be more alert , lethargic and not responding to questions but responding to deep sternal rub . patients whitecount is rising and kidney function is worsening. Is on room air and can forgo PJP treatments since it is unlikely playing a large role in septic picture and patietns on room ait . Patient weighs 106 lbs , so attempt to lower bactrum to 1 double strength tablet 3x a day and monitor kidney function , can stop vancomycin in setting of VEL and will switch to linasolid and continue cefepime. If mentation does not improve in next 24 hours patient will need lumbar puncture. recommend repeating blood cultures and doing a chest ct of abdomen and pelvis 2/5: remains uptunded but is able to protenct airway , underwent a lumbar puncture earlier in the day and is still not responsive and pulling out lines . no fever in the last 24 hours but patient is having rising keratin , BUN 68 which is possibly contributing to an altered mental staus . however would want to rule out any type of infectious meningitis in the setting of AIDs for lumbar punture recommend bacterial AFB fungal culture , viral culture , CMV antibuody , VZV antibody , cryptococcus antibody , coxy antibody , RPR , HSVPR , PCR , VDRL . Continue linazolid and cefepime which will provide patient with adequate menegitis coverage . unclear ideology staus at this stime but suspect its a combination of HIV encephalopathy with providing a low baseline mentation in setting of uremia , worsening kidney function may be attributable to bactrum vs HIV nephropathy . Patients BP is holding steady a bit on the low side , waiting to follow up on AFB culture speciation to see if we are attempting to treat MAC vs TB . Hold of on HAART therapy for now while awaiting results for cryptococcal and AFB studies. will hold off Bactrim to avoid worsening keratin from nephrotoxicity and PJP is not a priority to treat at this time 2: Is breathing on room air and remains largely obtained but is still protecting his airway . lumbar puncture bacterial culture suggests that there is no acute concern for bacterial infection in the CSF . Plan for patient to stop Bactrim due to rising creatine and continue empirical therapy with linezolid and cefepime . will continue to follow up on AFB culture results 07/13: continues to feel lethargic and not really waking up but does respond to sternal rub and is protecting his airway . no neck ridgitiy . AFB cultures have return positive for microbacterial avium complex still awaiting AFB blood and stool to confirm disseminated MAC infection so for now continue linezolid and cefepime therapy in addition will add ethambutol and rifampin and azithromycin via Ngtube . Would recommend repeating EKG to monitor QTC in 5 days as well as check LTFs daily while on rifampin therapy 07/14: C diff testing is negative . renal function continues to worsen . patients altered mental status is likely related to uremia , BUN of 75 , creatine of 4.39 , patient may require dialysis 07/15: patients kidney function continues to decline 07/16: whitecount is 10.1 , BUN 66, kidney function continues to worsen and has diarrhea possibly related to multiple antibiotics given 07/17: whitecount is 8.2 , creatine is 4.64 , BUN is 68. evaluation for menegitis when workup is negative , still followup up on multiple serologies / CSF tests 07/18: whitecount is 8.2 , and is getting more anemic with hemoglobin at 7.2 and worsening kidney function and a creatine of 4.64 . Patient is still making good urine however unclear if patient will be able to wake due to uremia being as high as it is . undiagnosed possible meningitis Plan: - cryptococcal antigen is negative , PCR is negative , VDRL is negative so will opt to start patient on HAART therapy and will discuss with pharmacy what options are available due to patients renal function - if diarrhea persists would consider acquiring a stool culture , c.diff testing is negative - Will talk with pharmacy to add a HAART therapy compatible with patients renal failure to if controlling viremia would help with improving renal function however will need to await for CSF cryptococcal antigen to return - continue rifampine, linezolid, ethambutol, and azithromycin for mac infection and meningitis coverage Authorized and Performed by: MD Paredes Total critical care time: Approximately 75 minutes Due to a high probability of clinically significant, life threatening deterioration, the patient required my highest level of preparedness to intervene emergently and I personally spent this critical care time directly and personally managing the patient. This critical care time included obtaining a history; examining the patient; pulse oximetry; ordering and review of studies; arranging urgent treatment with development of a management plan; evaluation of patient's response to treatment; frequent reassessment; and, discussions with other providers. This critical care time was performed to assess and manage the high probability of imminent, life-threatening deterioration that could result in multi-organ failure. It was exclusive of separately billable procedures and treating other patients and teaching time. Plan discussed with: Patient, Other Dietary Evaluation Review Comments: 1. advance diet when medically feasible: Renal Sepcific 40g Protein restriction diet, supplement his protein needs with clinimix @ 41ml/hr (42.5 gPro 510 kcal) 2. TPN per pharmacy if NPO > 7 days Expected Outcomes/Goals: gradual wt gain, improved nutrition status. grdual healed wounds. JONO CAPUTO MD Jul 19, 2024 12:39
[2024-07-19] MEDS: ERYTHROMY OPTH OINT 5mg/gm 1gm or 3.5gm tube OP SCH (14:00)
--- NOTE | 2024-07-19 20:32 | DVHPNRES ---
Progress Note Date Seen: Jul 19, 2024 Resident Creating Document: CESAR LIRIANO RESIDENT Has the PT tested + for MRSA If YES, has PT been informed?: Yes Medical Necessity Reason Pt with a Central, PICC or Fol: Yes The following are medically ne: Chua Catheter Reason for chua catheter: Strict I&O Objective vital signs Vital Sign Date Time Temp Pulse Resp B/P (MAP) Pulse Ox O2 Delivery O2 Flow Rate FiO2 07/19/24 19:30 143 23 137/77 (97) 91 07/19/24 16:00 98.4 98.4 07/19/24 08:00 Room Air* 0 21 Total Intake and Output 07/18/24 07/18/24 07/19/24 15:00 23:00 07:00 Intake Total 172 ml 1694 ml 1314 ml Output Total 1445 ml 1330 ml Balance 172 ml 249 ml -16 ml medications Current Medications Medications Dose Ordered Sig/Sean Route Start Time Stop Time Status Last Admin Dose Admin Guaifenesin/ Dextromethorphan 10 ml Q4HP PRN PO 06/08/24 11:00 07/10/24 01:48 10 ML Morphine Sulfate 1 mg Q4HPRN PRN IV 06/16/24 14:00 07/17/24 03:47 1 MG Ondansetron HCl 4 mg Q4HP PRN IV 06/21/24 16:00 07/18/24 02:05 4 MG Nystatin 5 ml QID MT 06/27/24 12:00 07/19/24 18:14 5 ML Ursodiol 300 mg BID PO 06/28/24 22:00 07/18/24 09:25 300 MG Morphine Sulfate 2 mg Q4HPRN PRN IV 06/29/24 16:45 07/17/24 01:25 2 MG Docusate Sodium 200 mg DAILYPRN PRN PO 07/02/24 14:30 Artificial Tears 1 drop Q6HP PRN EACHEYE 07/03/24 14:00 07/04/24 05:19 1 DROP Acetaminophen 650 mg Q6HP PRN PO 07/07/24 17:30 07/10/24 16:30 650 MG Linezolid 300 ml @ 150 mls/hr Q12HR IV 07/11/24 22:00 07/19/24 08:25 150 MLS/HR Metoclopramide HCl 5 mg Q8HPRN PRN IV 07/12/24 12:00 07/19/24 08:24 5 MG Diagnostic Test (Pha) 1 strip Q6HR 07/12/24 18:00 07/19/24 18:14 1 STRIP Insulin Human Regular FOLLOW SLIDING SCALE Q6HR SC 07/12/24 18:00 07/18/24 19:40 4 UNITS Dextrose 50 ml UD IV 07/12/24 17:45 Levetiracetam 100 ml @ 400 mls/hr BID IV 07/12/24 22:00 07/19/24 08:25 400 MLS/HR Lorazepam 1 mg Q5MINP PRN IV 07/12/24 21:15 07/17/24 02:39 1 MG Azithromycin 250 ml @ 125 mls/hr DAILY@1800 IV 07/14/24 18:00 07/19/24 18:14 125 MLS/HR Rifampin 600 mg DAILY@2100 GT 07/13/24 21:00 07/17/24 21:10 600 MG Ethambutol HCl 800 mg MWF GT 07/13/24 21:00 07/18/24 09:23 800 MG Phenytoin Sodium 100 mg Q8HR IV 07/14/24 06:00 07/19/24 14:56 100 MG Amino Acids 0 ml @ 0 mls/hr PER PHARMACY IV 07/15/24 22:00 Sodium Chloride 10 ml QSHIFT@10,22 IV 07/17/24 22:00 07/19/24 08:24 10 ML Fat Emulsion Intravenous 50 ml/ Sodium Chloride 20 meq/Sodium Acetate 60 meq/ Potassium Acetate 40 meq/Calcium Gluconate 2.3 meq/ Magnesium Sulfate 10 meq/ Multivitamins 10 ml/Amino Acids/ Dextrose/Purified Water 1,122.4462 ml @ 46 mls/hr [id number] IV 07/18/24 22:00 07/19/24 21:59 07/18/24 22:20 46 MLS/HR Sodium Chloride 1,000 ml @ 60 mls/hr [id number] IV 07/19/24 09:15 07/19/24 09:15 60 MLS/HR Pantoprazole Sodium 40 mg BID IV 07/19/24 22:00 Fat Emulsion Intravenous 50 ml/ Sodium Phosphate 20 meq/Potassium Chloride 20 meq/ Potassium Acetate 30 meq/Calcium Gluconate 3.5 meq/ Magnesium Sulfate 12 meq/ Multivitamins 10 ml/Amino Acids/ Dextrose/Purified Water 1,200.5268 ml @ 50 mls/hr Q24H1M IV 07/19/24 22:00 07/20/24 21:59 Erythromycin 1 applic Q4HR OP 07/19/24 14:00 07/19/24 18:39 1 APPLIC Examination GENERAL:Normal (Looks sick), HEENT:Normal (Oral mucosa dry and cracked , chelitis. ), NECK:Normal, LUNGS:Abnormal (Bilateral basal rales likely due to atelectasis), CVS:Normal (Blood pressure well controlled with the MAP over 65.), ABDOMEN:Normal, MSK:Abnormal (Low muscle mass), SKIN:Abnormal (Low skin turgor), NEURO:Abnormal (Alert but not oriented x1 responding to vocal stimuli), :Abnormal (And retract tube still having brown loose stool) laboratory and microbiology Laboratory Tests 07/19/24 04:50 Test 07/19/24 04:50 Range/Units Serum Glucose 112 H 74-106 mg/dL Microbiology Date/Time Source Procedure Growth Status 07/13/24 11:38 Stool Clostridium difficile Toxin Assay - Final Complete 07/13/24 07:50 Blood Blood Culture - Final NO GROWTH AFTER 5 DAYS OF INCUBATION. Complete 07/12/24 20:25 Nose MRSA Screen - Final Complete 07/11/24 19:32 Cerebral Spinal Fluid Gram Stain - Final Complete 07/11/24 19:32 Cerebral Spinal Fluid CSF Culture & Gram Stain (Tube 2) M - Final Complete 07/11/24 14:54 Voided Urine Urine Culture - Final Complete 07/07/24 06:10 Sputum Gram Stain - Final Complete 07/07/24 06:10 Respiratory Culture - Final Staphylococcus aureus Complete Labs and/or images reviewed: Labs reviewed by me, Image(s) reviewed by me Problem List/Assessment/Plan Problem List/Assessment/Plan ICU Course: A 28-year-old homosexual male patient; who was recently diagnosed with HIV, not on treatment; who presented with cough to [facility] and was transferred to [facility] for further evaluation and treatment. He has a history of homosexual activity presents with suspected sepsis, acute hypoxic respiratory failure, and bilateral pneumonia, possibly due to atypical infections. They have a productive cough, fever, tachycardia, and decreased oxygen saturation. The patient is on IV antibiotics, oxygen therapy, and nebulizer treatments, with close monitoring and consultations from infectious disease, nephrology and pulmonology teams. Additional concerns include normocytic anemia, elevated liver enzymes, mild hyponatremia, and an elevated D-dimer, with a chest angiogram ordered to rule out DVT. Denies any prior EGD or colonoscopy, family history negative for any GI malignancy. Having recurrent diarrhea. Patient has full-blown AIDS with multiple infections possibly night now having encephalopathy with meningitis. Patient is overall getting better, family deciding regarding the fate dialysis which will open further options for potential nephrotoxic yet life-saving antiretrovirals and viral meningitis treatment. Appreciate Infectious Disease and Nephrology input. Hospitalization day: A. Neurolgy: #Metabolic encephalopathy due to sepsis/?meningitis: Head CT unremarkable, p atient is more abusable, more awake, conversant but still has some photophobia which is concerning. Sending CMV antigen and titer. #?Seizure due to ?Meningitis: Head CT unremarkable, CSF pointing towards viral meningitis likely, neurology on board continue IV Keppra p.r.n. ID on board, continue antibiotics, consider antiviral, not available in local pharmacies. Social work consulted for Biktarvy from special pharmacy B. Cardiology: # septic shock: Due to multiple opportunity seeing infections: Off of vasopressor maintaining map over 65, IV fluids as needed C. Respiratory: # acute hypoxic respiratory failure: Recovered # Pneumocystis jiroveci multifocal pneumonia: partially treated likely improve patient is on room air. # Multifocal pneumonia, Pneumocystis Jerovoci or Carini Pneumonia ( opportunistic infection) # Pulmonary nodule, 2 cm in size, accidental finding # possible aspiration pneumonia, NPO, sputum culture, continue antibiotics, appreciate ID input. D. Gastrointenstinal: #Transaminitis with elevated bilirubin ?cholangiopathy/medication induced: Improved, hold oral actigall # antibiotic associated diarrhea: Due to immunocompromised state can not start patient on Florastor patient continues to have greenish liquid stool. C diff toxin negative. Check stool parasite n ova # nutrition: Patient is on enteral nutrition, we will consider further supplementation as per GI with PICC line, continue upgraded nutrition goal as per GI team E. Geniotourinary: # UTI Enterococcus faecalis status post ampicillin stopped by ID F. Infectious Disease: # leukopenia with neutropenic fever ?likely due to sepsis #oral candidiasis: Can not tolerate change to fluconazole IV. #AIDS, CD4 count less than 10: specific treatment: Biktarvy to be arranged inpatient to improved immune function, medications to be arranged with sw from special pharmacy. Potential adverse effect of renal failure and hepatic failure needs further discussion with the family. The patient family we will decide by tomorrow #Acid-fast bacilli culture positive likely MAC infection: Patient on antibiotics, continue ID on board. Rifampin, ethambutol to hold for now. As patient is nauseous. Vomiting and aspiration we will have more harm than benefit of the treatment for MAC itself #Pneumocystis Jerovoci or Carini Pneumonia ( opportunistic infection): Partially treated. # respiratory culture positive for MRSA, continue antibiotics G. Hematology & Oncology: # microcytic anemia, Severe, requiring blood transfusion: Status post 1 unit PRBC, daily CBC H. Nephrology: #VEL due to ?bacterim use: Close I&O patient is making urine, conservative management daily BNP nephrology on board continue IV fluids, satisfactory I/0, daily BNP to follow #Hyponatremia ?SIADH due to PCP pneumonia/bacterim improved #hypokalemia: Recurrent slowly correct hypokalemia with 40 IV potassium with repeat potassium check as kidney functions poor, slow correction #Hyperkalemia: Previously corrected I. Endocrine: #Left adrenal nodule: Morning cortisol elevated on 07/10/2024 45.68 J. MSK: # mild to moderate malnutrition with loss of muscle mass K. Prophylaxis: PPI: Pantoprazole Oral DVT: SCDs L. Lines & Drains (with insertion date): NG tube IV lines infiltrated, removed, PICC line inserted on 07/17 N. Disposition: Remains STELLA Updated Tri (close friend), designated (POA) by the patient for all decision-making. Appropriate paperwork and further discussion for rest of the team. Considering in-hospital Biktarvy Tri/POA with potential adverse effects, the family will decide regarding hemodialysis. Lateral definitely open potential treatment options for both opportunistic and specific anti-retroviral therapy. The plan was discussed with the ICU attending Dr. Pettit. The patient care consists of total 83 minutes of critical care time excluding the procedures. Dictated by Cesar Liriano MD with 3M MModal Fluency. Plan discussed with: Patient, Other My Orders My Orders Orders - CESAR LIRIANO Procedure Category Date Status Time Pantoprazole PHA 07/19/24 In Process (Protonix) 22:00 * Water [employer] Supervisor CONS 07/19/24 Transmitted Consult Stool Bacterial [place] 07/19/24 Logged Culture 11:01 Cmv Igg/Igm Antibodies LAB 07/19/24 In Process 11:01 Erythromy Opth Oint PHA 07/19/24 In Process 5mg/Gm 1gm 14:00 Dietary Evaluation Review Comments: 1. advance diet when medically feasible: Renal Sepcific 40g Protein restriction diet, supplement his protein needs with clinimix @ 41ml/hr (42.5 gPro 510 kcal) 2. TPN per pharmacy if NPO > 7 days Expected Outcomes/Goals: gradual wt gain, improved nutrition status. grdual healed wounds. Date of Service: Jul 19, 2024 Billing Provider: ANDRE PETTIT MD Common Visit Codes: 26510-[id number] CARE 30-74 MIN, [id number] CARE-EACH +30MIN CESAR LIRIANO Jul 19, 2024 20:32 ANDRE PETTIT MD Jul 22, 2024 17:58
[2024-07-19] MEDS: PANTOPRAZOLE 40 MG/10 ML VIAL INJ IV SCH (21:46)
[2024-07-19] MEDS: TPN PER PHARMACY IV NR (21:56)
[2024-07-19] MEDS: PIPERACILLIN-TAZOB 3.375GM 100 ML IV SCH (23:32)
[2024-07-20] VITALS (96 sets, daily range): BP systolic 98–160; BP diastolic 37–131; PULSE 112–162; RESP 14–43; TEMP 98.2–101.8; O2SAT 81–100
--- NOTE | 2024-07-20 00:10 | DVH ---
CHEST RADIOGRAPH Indication: evaluate for pneumoina Technique: Single frontal view of the chest was obtained COMPARISON: XY CHEST PORTABLE on DOS: 07/14/24, XY CHEST XRAY 1 VIEW on DOS: 07/06/24, XY CHEST PORTABLE on DOS: 06/27/24, XY CHEST XRAY 1 VIEW on DOS: 06/25/24, XY CHEST XRAY 1 VIEW on DOS: 06/17/24 FINDINGS: Lines and Tubes: Ng tube extends below the diaphragm the tip of which is not visualized on this stud y but is at least in the gastric body. Lungs: Bilateral pulmonary opacities which were not present on the prior chest x-ray from 07/14/24 and are consistent with pulmonary edema or pneumonia. Atelectasis/consolidation at both lung bases greate r on the left side. Pleura: Possible small bilateral pleural effusions. No pneumothorax. Cardiomediastinal contours: Unremarkable IMPRESSION: Bilateral pulmonary opacities which were not present on the prior chest x-ray from 07/14/24 and are con sistent with pulmonary edema or pneumonia.
[2024-07-20 05:18] LABS: Hematocrit 23.7 % (41.0-53.0); Mean Corpuscular Hemoglobin 27.3 pg (28.0-32.0); Mean Corpuscular Volume 80.5 fL (80.0-100.0); Red Blood Cells 2.95 10^6/uL (4.5-5.90)
[2024-07-20 05:20] LABS: Mean Corpuscular Hgb Conc. 33.9 g/dL (32.0-36.0); Platelet Count (auto) 241 10^3/uL (140-450); Red Cell Distribution Width 18.5 % (11.8-14.3)
[2024-07-20 05:24] LABS: Basophils % (manual) 0 (0.0-2.0); Blast Cells 0; Eosinophils % (manual) 0 (0-7); Myelocytes % 0; Promyelocytes % 0; Reactive Lymphocytes 0
[2024-07-20 05:31] LABS: Alanine Aminotransferase 19 U/L (7-40); Anion Gap 8 (5-15); BUN/Creatinine Ratio 14.5 (10.0-20.0); Carbon Dioxide 29 mmol/L (20-31); Chloride 103 mmol/L (98-107); Glucose 80 mg/dL (74-106); Magnesium 2.1 mg/dL (1.6-2.6); Phosphorus 4.1 mg/dL (2.4-5.1); Potassium 3.8 mmol/L (3.5-5.1); Sodium 140 mmol/L (136-145)
[2024-07-20 05:32] LABS: Alkaline Phosphatase 357 U/L (46-116); Aspartate Aminotransferase 49 U/L (13-40); Blood Urea Nitrogen 62 mg/dL (9-23); Calcium 8.2 mg/dL (8.7-10.4)
[2024-07-20 05:33] LABS: Albumin 2.8 g/dL (3.2-4.8); Bilirubin, Total 1.5 mg/dL (0.2-1.0); Total Protein 5.1 g/dL (5.7-8.2)
[2024-07-20 06:29] LABS: Band Neutrophils % (manual) 11; Lymphocytes % (manual) 14 (10.0-50.0); Metamyelocytes % 1; Monocytes % (manual) 7 (0-12)
[2024-07-20 06:30] LABS: Platelet Estimate Adequate
[2024-07-20] MEDS: ACETAMINOPHEN IV 1000 MG/100ML (10MG/ML) IV ONE (06:34)
[2024-07-20 10:07] LABS: CMV IgM Antibody <30.0 AU/mL (0.0-29.9)
[2024-07-20] MEDS: ACETYLCYSTEINE 10 %(100MG/ML) SOL 4ML IN PRN (12:41)
[2024-07-20] MEDS: LEVALBUTEROL HCL 1.25 MG/3 ML NEB NEB PRN (12:41)
--- NOTE | 2024-07-20 13:41 | DVHPN2 ---
Progress Note Date Seen: Jul 20, 2024 Has the PT tested + for MRSA If YES, has PT been informed?: Yes Medical Necessity Reason Pt with a Central, PICC or Fol: Yes The following are medically ne: Chua Catheter Reason for chua catheter: Strict I&O Subjective Review of Systems No new complaints. Patient reports: No new complaints Objective vital signs Vital Sign Date Time Temp Pulse Resp B/P (MAP) Pulse Ox O2 Delivery O2 Flow Rate FiO2 07/20/24 13:00 148 27 144/90 (108) 100 07/20/24 12:42 Simple Mask* 6 50 07/20/24 12:00 99.1 99.1 Total Intake and Output 07/19/24 07/19/24 07/20/24 15:00 23:00 07:00 Intake Total 1528 ml 1386 ml 1100 ml Output Total 1460 ml 1250 ml Balance 1528 ml -74 ml -150 ml medications Current Medications Medications Dose Ordered Sig/Sean Route Start Time Stop Time Status Last Admin Dose Admin Guaifenesin/ Dextromethorphan 10 ml Q4HP PRN PO 06/08/24 11:00 07/10/24 01:48 10 ML Morphine Sulfate 1 mg Q4HPRN PRN IV 06/16/24 14:00 07/17/24 03:47 1 MG Ondansetron HCl 4 mg Q4HP PRN IV 06/21/24 16:00 07/18/24 02:05 4 MG Nystatin 5 ml QID MT 06/27/24 12:00 07/20/24 13:03 5 ML Ursodiol 300 mg BID PO 06/28/24 22:00 07/18/24 09:25 300 MG Morphine Sulfate 2 mg Q4HPRN PRN IV 06/29/24 16:45 07/17/24 01:25 2 MG Docusate Sodium 200 mg DAILYPRN PRN PO 07/02/24 14:30 Artificial Tears 1 drop Q6HP PRN EACHEYE 07/03/24 14:00 07/20/24 06:34 1 DROP Acetaminophen 650 mg Q6HP PRN PO 07/07/24 17:30 07/10/24 16:30 650 MG Linezolid 300 ml @ 150 mls/hr Q12HR IV 07/11/24 22:00 07/20/24 08:59 150 MLS/HR Metoclopramide HCl 5 mg Q8HPRN PRN IV 07/12/24 12:00 07/19/24 08:24 5 MG Diagnostic Test (Pha) 1 strip Q6HR 07/12/24 18:00 07/20/24 11:53 1 STRIP Insulin Human Regular FOLLOW SLIDING SCALE Q6HR SC 07/12/24 18:00 07/19/24 23:38 2 UNITS Dextrose 50 ml UD IV 07/12/24 17:45 Levetiracetam 100 ml @ 400 mls/hr BID IV 07/12/24 22:00 07/20/24 09:34 400 MLS/HR Lorazepam 1 mg Q5MINP PRN IV 07/12/24 21:15 07/17/24 02:39 1 MG Azithromycin 250 ml @ 125 mls/hr DAILY@1800 IV 07/14/24 18:00 07/19/24 18:14 125 MLS/HR Rifampin 600 mg DAILY@2100 GT 07/13/24 21:00 07/17/24 21:10 600 MG Phenytoin Sodium 100 mg Q8HR IV 07/14/24 06:00 07/20/24 05:45 100 MG Amino Acids 0 ml @ 0 mls/hr PER PHARMACY IV 07/15/24 22:00 Sodium Chloride 10 ml QSHIFT@10,22 IV 07/17/24 22:00 07/20/24 09:00 10 ML Sodium Chloride 1,000 ml @ 60 mls/hr [id number] IV 07/19/24 09:15 07/20/24 05:45 60 MLS/HR Pantoprazole Sodium 40 mg BID IV 07/19/24 22:00 07/20/24 08:59 40 MG Fat Emulsion Intravenous 50 ml/ Sodium Phosphate 20 meq/Potassium Chloride 20 meq/ Potassium Acetate 30 meq/Calcium Gluconate 3.5 meq/ Magnesium Sulfate 12 meq/ Multivitamins 10 ml/Amino Acids/ Dextrose/Purified Water 1,200.5268 ml @ 50 mls/hr Q24H1M IV 07/19/24 22:00 07/20/24 21:59 07/19/24 21:56 50 MLS/HR Erythromycin 1 applic Q4HR OP 07/19/24 14:00 07/20/24 10:00 1 APPLIC Piperacillin Sod/ Tazobactam Sod 100 ml @ 25 mls/hr Q12HR IV 07/19/24 23:00 07/20/24 08:59 25 MLS/HR Fat Emulsion Intravenous 100 ml/Sodium Chloride 20 meq/ Potassium Chloride 20 meq/ Potassium Acetate 20 meq/Calcium Gluconate 3.5 meq/ Magnesium Sulfate 12 meq/ Multivitamins 10 ml/Chromium/ Copper/Manganese/ Zinc 1 ml/Amino Acids/Dextrose/ Purified Water 1,396.5268 ml @ 58 mls/hr Q24H5M IV 07/20/24 22:00 07/21/24 21:59 Acetylcysteine 200 mg Q6HPRN PRN IN 07/20/24 11:15 07/20/24 12:41 200 MG Levalbuterol HCl 1.25 mg Q6HR PRN NEB 07/20/24 11:15 07/20/24 12:41 1.25 MG Examination Gen: Appears stated age, in no acute distress Pulm: Rales bilateral lower lobes CVS: Tachycardia Ext: Nonpitting edema Neuro: Alert laboratory and microbiology Laboratory Tests 07/20/24 04:46 Test 07/20/24 04:46 Range/Units Serum Glucose 80 74-106 mg/dL Microbiology Date/Time Source Procedure Growth Status 07/13/24 11:38 Stool Clostridium difficile Toxin Assay - Final Complete 07/13/24 07:50 Blood Blood Culture - Final NO GROWTH AFTER 5 DAYS OF INCUBATION. Complete 07/12/24 20:25 Nose MRSA Screen - Final Complete 07/11/24 19:32 Cerebral Spinal Fluid Gram Stain - Final Complete 07/11/24 19:32 Cerebral Spinal Fluid CSF Culture & Gram Stain (Tube 2) M - Final Complete 07/11/24 14:54 Voided Urine Urine Culture - Final Complete 07/07/24 06:10 Sputum Gram Stain - Final Complete 07/07/24 06:10 Respiratory Culture - Final Staphylococcus aureus Complete Labs and/or images reviewed: Labs reviewed by me Problem List/Assessment/Plan Problem List/Assessment/Plan IMP Acute kidney injury secondary hemodynamic mediated ATN, feNa > 2% nonoliguric- slight downtrend in creat now 4.28, eGFR 18 Creatinine was 0.6 on 07/09/2024 Hyponatremia secondary to excess [id number] Hypokalemia-resolved Diarrhea Metabolic acidosis Seizures Encephalopathy AIDS Jaundice Transaminitis Hypoalbuminemia PCP on bactrim IV now switched to p.o PNA Anemia due to blood loss status post packed red blood cell transfusion REC Serial chemistry panels Improved urine output Avoidance of nephrotoxins KCL replacement prn May continue IVF NS @ 60 cc/hour Will continue to follow Case discussed with Dr. Xander Adkins Plan discussed with: Patient, Other (Dr. Xander Adkins) Dietary Evaluation Review Comments: 1. advance diet when medically feasible: Renal Sepcific 40g Protein restriction diet, supplement his protein needs with clinimix @ 41ml/hr (42.5 gPro 510 kcal) 2. TPN per pharmacy if NPO > 7 days Expected Outcomes/Goals: gradual wt gain, improved nutrition status. grdual healed wounds. MAYELIN MAURICE Jul 20, 2024 13:41
--- NOTE | 2024-07-20 14:48 | DVHPN2 ---
Progress Note Date Seen: Jul 20, 2024 Resident Creating Document: ELVA SAEZ RESIDENT Has the PT tested + for MRSA If YES, has PT been informed?: Yes Medical Necessity Reason Pt with a Central, PICC or Fol: Yes The following are medically ne: Chua Catheter Reason for chua catheter: Strict I&O Subjective Review of Systems Patient seen and examined at bedside. Patient is able to answer. On 5 L oxygen via nasal cannula. Continued to have higher temperature 102. Cooling measures are ongoing. Patient informed that he does not want to get intubated if needed. Okay with CPR. No nausea, no vomiting or diarrhea. Objective vital signs Vital Sign Date Time Temp Pulse Resp B/P (MAP) Pulse Ox O2 Delivery O2 Flow Rate FiO2 07/20/24 13:50 140 22 97 6.0 07/20/24 13:00 144/90 (108) 07/20/24 12:42 Simple Mask* 50 07/20/24 12:00 99.1 99.1 Total Intake and Output 07/19/24 07/19/24 07/20/24 15:00 23:00 07:00 Intake Total 1528 ml 1386 ml 1100 ml Output Total 1460 ml 1250 ml Balance 1528 ml -74 ml -150 ml medications Current Medications Medications Dose Ordered Sig/Sean Route Start Time Stop Time Status Last Admin Dose Admin Guaifenesin/ Dextromethorphan 10 ml Q4HP PRN PO 06/08/24 11:00 07/10/24 01:48 10 ML Morphine Sulfate 1 mg Q4HPRN PRN IV 06/16/24 14:00 07/17/24 03:47 1 MG Ondansetron HCl 4 mg Q4HP PRN IV 06/21/24 16:00 07/18/24 02:05 4 MG Nystatin 5 ml QID MT 06/27/24 12:00 07/20/24 13:03 5 ML Ursodiol 300 mg BID PO 06/28/24 22:00 07/18/24 09:25 300 MG Morphine Sulfate 2 mg Q4HPRN PRN IV 06/29/24 16:45 07/17/24 01:25 2 MG Docusate Sodium 200 mg DAILYPRN PRN PO 07/02/24 14:30 Artificial Tears 1 drop Q6HP PRN EACHEYE 07/03/24 14:00 07/20/24 06:34 1 DROP Linezolid 300 ml @ 150 mls/hr Q12HR IV 07/11/24 22:00 07/20/24 08:59 150 MLS/HR Metoclopramide HCl 5 mg Q8HPRN PRN IV 07/12/24 12:00 07/19/24 08:24 5 MG Diagnostic Test (Pha) 1 strip Q6HR 07/12/24 18:00 07/20/24 11:53 1 STRIP Insulin Human Regular FOLLOW SLIDING SCALE Q6HR SC 07/12/24 18:00 07/19/24 23:38 2 UNITS Dextrose 50 ml UD IV 07/12/24 17:45 Levetiracetam 100 ml @ 400 mls/hr BID IV 07/12/24 22:00 07/20/24 09:34 400 MLS/HR Lorazepam 1 mg Q5MINP PRN IV 07/12/24 21:15 07/17/24 02:39 1 MG Azithromycin 250 ml @ 125 mls/hr DAILY@1800 IV 07/14/24 18:00 07/19/24 18:14 125 MLS/HR Rifampin 600 mg DAILY@2100 GT 07/13/24 21:00 07/17/24 21:10 600 MG Phenytoin Sodium 100 mg Q8HR IV 07/14/24 06:00 07/20/24 05:45 100 MG Amino Acids 0 ml @ 0 mls/hr PER PHARMACY IV 07/15/24 22:00 Sodium Chloride 10 ml QSHIFT@10,22 IV 07/17/24 22:00 07/20/24 09:00 10 ML Sodium Chloride 1,000 ml @ 60 mls/hr [id number] IV 07/19/24 09:15 07/20/24 05:45 60 MLS/HR Pantoprazole Sodium 40 mg BID IV 07/19/24 22:00 07/20/24 08:59 40 MG Fat Emulsion Intravenous 50 ml/ Sodium Phosphate 20 meq/Potassium Chloride 20 meq/ Potassium Acetate 30 meq/Calcium Gluconate 3.5 meq/ Magnesium Sulfate 12 meq/ Multivitamins 10 ml/Amino Acids/ Dextrose/Purified Water 1,200.5268 ml @ 50 mls/hr Q24H1M IV 07/19/24 22:00 07/20/24 21:59 07/19/24 21:56 50 MLS/HR Erythromycin 1 applic Q4HR OP 07/19/24 14:00 07/20/24 10:00 1 APPLIC Piperacillin Sod/ Tazobactam Sod 100 ml @ 25 mls/hr Q12HR IV 07/19/24 23:00 07/20/24 08:59 25 MLS/HR Fat Emulsion Intravenous 100 ml/Sodium Chloride 20 meq/ Potassium Chloride 20 meq/ Potassium Acetate 20 meq/Calcium Gluconate 3.5 meq/ Magnesium Sulfate 12 meq/ Multivitamins 10 ml/Chromium/ Copper/Manganese/ Zinc 1 ml/Amino Acids/Dextrose/ Purified Water 1,396.5268 ml @ 58 mls/hr Q24H5M IV 07/20/24 22:00 07/21/24 21:59 Acetylcysteine 200 mg Q6HPRN PRN IN 07/20/24 11:15 07/20/24 12:41 200 MG Levalbuterol HCl 1.25 mg Q6HR PRN NEB 07/20/24 11:15 07/20/24 12:41 1.25 MG Acetaminophen 1,000 mg Q8H PRN IV 07/20/24 14:30 Examination General Appearance: Cooperative. Cachectic. On 5 L oxygen via nasal cannula. Generally looks weak. Head Exam: Normal inspection Neck Exam: Normal inspection. Non-tender. Normal alignment Pulmonary/Respiratory: Chest non-tender. Mild crackles over bilateral lung base. Cardiovascular/Chest: Regular rate and rhythm. No murmurs. No JVD. Peripheral Pulses: 2+ Radial (R). 2+ Radial (L). 2+ Pedal (R). 2+ Pedal (L) Abdominal Exam: Normal bowel sounds. Soft. Nontender. No hepatospenomegaly. No masses Ankle Exam: Negative ankle edema Lower extremities: Negative lower extremity edema Neuro/Mental Status: A&O x 1. laboratory and microbiology Laboratory Tests 07/20/24 04:46 Test 07/20/24 04:46 Range/Units Serum Glucose 80 74-106 mg/dL Microbiology Date/Time Source Procedure Growth Status 07/13/24 11:38 Stool Clostridium difficile Toxin Assay - Final Complete 07/13/24 07:50 Blood Blood Culture - Final NO GROWTH AFTER 5 DAYS OF INCUBATION. Complete 07/12/24 20:25 Nose MRSA Screen - Final Complete 07/11/24 19:32 Cerebral Spinal Fluid Gram Stain - Final Complete 07/11/24 19:32 Cerebral Spinal Fluid CSF Culture & Gram Stain (Tube 2) M - Final Complete 07/11/24 14:54 Voided Urine Urine Culture - Final Complete 07/07/24 06:10 Sputum Gram Stain - Final Complete 07/07/24 06:10 Respiratory Culture - Final Staphylococcus aureus Complete Problem List/Assessment/Plan Problem List/Assessment/Plan Pneumocystis Jerovoci or Carini Pneumonia ( opportunistic infection) AIDS, CD4 count less than 10 Acid-fast bacilli culture positive , Mycobacterium avium complex infection Neutropenic fever UTI Enterococcus faecalis Multifocal pneumonia Septic shock due to pneumonia: Currently off vasopressor Acute pancreatitis Transaminitis with elevated bilirubin ? Age cholangiopathy/medication induced Hyponatremia likely due to SIADH Pulmonary nodule, 2 cm in size Left adrenal nodule Severe anemia Immunosuppressed Homosexual Seizure Plan/recommendation Dr. Robins -receiving TPN via PICC line. Continue current management. ondansetron 4 mg IV BID -continue Protonix 40 mg IV b.i.d.. Repeat lipase in a.m. -correct electrolytes including potassium: As per hospitalist/nephrology team recommendation. -patient recently diagnosed with MAC infection, HIV, PCP pneumonia. antibiotics as per ID recommendation. Currently on rifampin ethambutol and azithromycin. Continue following liver function tests. -liver function tests continuously trending down. -GI will be standing by in case for any acute need for GI intervention. -prognosis remained guarded. Plan discussed with: Patient, Other (RN) Dietary Evaluation Review Comments: 1. advance diet when medically feasible: Renal Sepcific 40g Protein restriction diet, supplement his protein needs with clinimix @ 41ml/hr (42.5 gPro 510 kcal) 2. TPN per pharmacy if NPO > 7 days Expected Outcomes/Goals: gradual wt gain, improved nutrition status. grdual healed wounds. ELVA SAEZ RESIDENT Jul 20, 2024 14:47
[2024-07-20] MEDS: ACETAMINOPHEN IV 1000 MG/100ML (10MG/ML) IV PRN (15:00)
[2024-07-20] MEDS: CEFEPIME 2GM/50ML NS 50 ML IV SCH (20:00)
[2024-07-20] MEDS: LORazepam 2MG/ML-1ML VIAL IV PRN (20:01)
--- NOTE | 2024-07-20 20:38 | DVHPNRES ---
Progress Note Date Seen: Jul 20, 2024 Resident Creating Document: CESAR LIRIANO RESIDENT Has the PT tested + for MRSA If YES, has PT been informed?: Yes Medical Necessity Reason Pt with a Central, PICC or Fol: Yes The following are medically ne: Chua Catheter Reason for chua catheter: Strict I&O Subjective Patient reports: No new complaints Objective vital signs Vital Sign Date Time Temp Pulse Resp B/P (MAP) Pulse Ox O2 Delivery O2 Flow Rate FiO2 07/20/24 18:30 139 35 136/86 (103) 95 07/20/24 18:00 98.9 98.9 07/20/24 13:50 6.0 07/20/24 12:42 Simple Mask* 50 Total Intake and Output 07/19/24 07/19/24 07/20/24 15:00 23:00 07:00 Intake Total 1528 ml 1386 ml 1100 ml Output Total 1460 ml 1250 ml Balance 1528 ml -74 ml -150 ml medications Current Medications Medications Dose Ordered Sig/Sean Route Start Time Stop Time Status Last Admin Dose Admin Guaifenesin/ Dextromethorphan 10 ml Q4HP PRN PO 06/08/24 11:00 07/10/24 01:48 10 ML Morphine Sulfate 1 mg Q4HPRN PRN IV 06/16/24 14:00 07/17/24 03:47 1 MG Ondansetron HCl 4 mg Q4HP PRN IV 06/21/24 16:00 07/18/24 02:05 4 MG Nystatin 5 ml QID MT 06/27/24 12:00 07/20/24 19:23 5 ML Ursodiol 300 mg BID PO 06/28/24 22:00 07/18/24 09:25 300 MG Morphine Sulfate 2 mg Q4HPRN PRN IV 06/29/24 16:45 07/17/24 01:25 2 MG Docusate Sodium 200 mg DAILYPRN PRN PO 07/02/24 14:30 Artificial Tears 1 drop Q6HP PRN EACHEYE 07/03/24 14:00 07/20/24 06:34 1 DROP Linezolid 300 ml @ 150 mls/hr Q12HR IV 07/11/24 22:00 07/20/24 08:59 150 MLS/HR Metoclopramide HCl 5 mg Q8HPRN PRN IV 07/12/24 12:00 07/19/24 08:24 5 MG Diagnostic Test (Pha) 1 strip Q6HR 07/12/24 18:00 07/20/24 19:24 1 STRIP Insulin Human Regular FOLLOW SLIDING SCALE Q6HR SC 07/12/24 18:00 07/19/24 23:38 2 UNITS Dextrose 50 ml UD IV 07/12/24 17:45 Levetiracetam 100 ml @ 400 mls/hr BID IV 07/12/24 22:00 07/20/24 09:34 400 MLS/HR Lorazepam 1 mg Q5MINP PRN IV 07/12/24 21:15 07/17/24 02:39 1 MG Azithromycin 250 ml @ 125 mls/hr DAILY@1800 IV 07/14/24 18:00 07/20/24 19:23 125 MLS/HR Rifampin 600 mg DAILY@2100 GT 07/13/24 21:00 07/17/24 21:10 600 MG Phenytoin Sodium 100 mg Q8HR IV 07/14/24 06:00 07/20/24 15:23 100 MG Amino Acids 0 ml @ 0 mls/hr PER PHARMACY IV 07/15/24 22:00 Sodium Chloride 10 ml QSHIFT@10,22 IV 07/17/24 22:00 07/20/24 09:00 10 ML Sodium Chloride 1,000 ml @ 60 mls/hr [id number] IV 07/19/24 09:15 07/20/24 18:35 60 MLS/HR Pantoprazole Sodium 40 mg BID IV 07/19/24 22:00 07/20/24 08:59 40 MG Fat Emulsion Intravenous 50 ml/ Sodium Phosphate 20 meq/Potassium Chloride 20 meq/ Potassium Acetate 30 meq/Calcium Gluconate 3.5 meq/ Magnesium Sulfate 12 meq/ Multivitamins 10 ml/Amino Acids/ Dextrose/Purified Water 1,200.5268 ml @ 50 mls/hr Q24H1M IV 07/19/24 22:00 07/20/24 21:59 07/19/24 21:56 50 MLS/HR Erythromycin 1 applic Q4HR OP 07/19/24 14:00 07/20/24 19:23 1 APPLIC Fat Emulsion Intravenous 100 ml/Sodium Chloride 20 meq/ Potassium Chloride 20 meq/ Potassium Acetate 20 meq/Calcium Gluconate 3.5 meq/ Magnesium Sulfate 12 meq/ Multivitamins 10 ml/Chromium/ Copper/Manganese/ Zinc 1 ml/Amino Acids/Dextrose/ Purified Water 1,396.5268 ml @ 58 mls/hr Q24H5M IV 07/20/24 22:00 07/21/24 21:59 Acetylcysteine 200 mg Q6HPRN PRN IN 07/20/24 11:15 07/20/24 12:41 200 MG Levalbuterol HCl 1.25 mg Q6HR PRN NEB 07/20/24 11:15 07/20/24 12:41 1.25 MG Acetaminophen 1,000 mg Q8H PRN IV 07/20/24 14:30 07/20/24 15:00 1,000 MG Primaquine Phosphate 52.6 mg HS PO 07/20/24 22:00 08/10/24 21:59 Clindamycin Phosphate 50 ml @ 50 mls/hr Q8HR IV 07/20/24 22:00 Cefepime HCl 50 ml @ 25 mls/hr Q24H IV 07/20/24 20:00 07/20/24 20:00 25 MLS/HR Lorazepam 1 mg Q6HP PRN IV 07/20/24 19:00 07/20/24 20:01 1 MG Examination GENERAL:Normal (Looks sick), HEENT:Normal (Oral mucosa dry and cracked , chelitis. ), NECK:Normal, LUNGS:Abnormal (Bilateral basal rales likely due to atelectasis), CVS:Normal (Blood pressure well controlled with the MAP over 65.), ABDOMEN:Normal, MSK:Abnormal (Low muscle mass), SKIN:Abnormal (Low skin turgor), NEURO:Abnormal (patient alert oriented x4, exiting function intact, checked executive functions intact), :Abnormal (And retract tube still having brown loose stool) laboratory and microbiology Laboratory Tests 07/20/24 04:46 Test 07/20/24 04:46 Range/Units Serum Glucose 80 74-106 mg/dL Microbiology Date/Time Source Procedure Growth Status 07/13/24 11:38 Stool Clostridium difficile Toxin Assay - Final Complete 07/13/24 07:50 Blood Blood Culture - Final NO GROWTH AFTER 5 DAYS OF INCUBATION. Complete 07/12/24 20:25 Nose MRSA Screen - Final Complete 07/11/24 19:32 Cerebral Spinal Fluid Gram Stain - Final Complete 07/11/24 19:32 Cerebral Spinal Fluid CSF Culture & Gram Stain (Tube 2) M - Final Complete 07/11/24 14:54 Voided Urine Urine Culture - Final Complete 07/07/24 06:10 Sputum Gram Stain - Final Complete 07/07/24 06:10 Respiratory Culture - Final Staphylococcus aureus Complete Labs and/or images reviewed: Labs reviewed by me, Image(s) reviewed by me Problem List/Assessment/Plan Problem List/Assessment/Plan ICU Course: A 28-year-old homosexual male patient; who was recently diagnosed with HIV, not on treatment; who presented with cough to [facility] and was transferred to [facility] for further evaluation and treatment. He has a history of homosexual activity presents with suspected sepsis, acute hypoxic respiratory failure, and bilateral pneumonia, possibly due to atypical infections. They have a productive cough, fever, tachycardia, and decreased oxygen saturation. The patient is on IV antibiotics, oxygen therapy, and nebulizer treatments, with close monitoring and consultations from infectious disease, nephrology and pulmonology teams. Additional concerns include normocytic anemia, elevated liver enzymes, mild hyponatremia, and an elevated D-dimer, with a chest angiogram ordered to rule out DVT. Denies any prior EGD or colonoscopy, family history negative for any GI malignancy. Having recurrent diarrhea. Patient has full-blown AIDS with multiple infections possibly night now having encephalopathy with meningitis. Patient is AAO x 4, changed his wish to DNI and NO BIPAP but other ACLS measures can be done. He wishes our team to discuss further goals of care only with power of deputy commonwealth's attorney. And does not wish to update his health updates to his biological family. Appreciate Infectious Disease and Nephrology input. Hospitalization day: 42 day A. Neurolgy: #Metabolic encephalopathy due to sepsis/?meningitis: Head CT unremarkable, p atient is more abusable, more awake, conversant but still has some photophobia which is concerning. Sending CMV antigen and titer. #?Seizure due to ?Meningitis: Head CT unremarkable, CSF pointing towards viral meningitis likely, neurology on board continue IV Keppra p.r.n. ID on board, continue antibiotics, consider antiviral, not available in local pharmacies. Social work consulted for [facility] from [facility] pharmacy B. Cardiology: # septic shock: Due to multiple opportunity seeing infections: Off of vasopressor maintaining map over 65, IV fluids as needed C. Respiratory: # acute hypoxic respiratory failure: Recovered # Pneumocystis jiroveci multifocal pneumonia: partially treated likely improve patient is on room air. # Multifocal pneumonia, Pneumocystis Jerovoci or Carini Pneumonia ( opportunistic infection) # Pulmonary nodule, 2 cm in size, accidental finding # possible aspiration pneumonia, NPO, sputum culture, continue antibiotics, appreciate ID input. # impending respiratory failure: Patient was on I respiratory rate of 14, with use of abdominal muscles and moderate retraction in the intercostal space, pointing to us respiratory distress, patient shows not to consider intubation and BiPAP but asking for compassionate care of has been without anxiety and air hunger. Patient is started on lorazepam 1 mg IV PRN. # new onset of acute hypoxic respiratory failure secondary to aspiration pneumonia in the background of full-blown AIDS, started on prednisone, primidone, patient was acutely septic, ongoing fever but can not tolerate oral diet/medications, IV Tylenol as needed. Also the fever could be due to neurogenic/infectious/systemic. D. Gastrointenstinal: #Transaminitis with elevated bilirubin ?cholangiopathy/medication induced: Improved, hold oral actigall # antibiotic associated diarrhea: Due to immunocompromised state can not start patient on Florastor patient continues to have greenish liquid stool. C diff toxin negative. Check stool parasite n ova # nutrition: Patient is on enteral nutrition, we will consider further supplementation as per GI with PICC line, continue upgraded nutrition goal as per GI team E. Geniotourinary: # UTI Enterococcus faecalis status post ampicillin stopped by ID F. Infectious Disease: # leukopenia with neutropenic fever ?likely due to sepsis #oral candidiasis: Can not tolerate change to fluconazole IV. #AIDS, CD4 count less than 10: specific treatment: #Acid-fast bacilli culture positive likely MAC infection: Patient on antibiotics, continue ID on board. Rifampin, ethambutol to hold for now. As patient is nauseous. Vomiting and aspiration we will have more harm than benefit of the treatment for MAC itself #Pneumocystis Jerovoci or Carini Pneumonia ( opportunistic infection): Partially treated. # respiratory culture positive for MRSA, continue antibiotics G. Hematology & Oncology: # microcytic anemia, Severe, requiring blood transfusion: Status post 1 unit PRBC, daily CBC H. Nephrology: #VEL due to ?bacterim use: Close I&O patient is making urine, conservative management daily BNP nephrology on board continue IV fluids, satisfactory I/0, daily BNP to follow #Hyponatremia ?SIADH due to PCP pneumonia/bacterim improved #hypokalemia: Recurrent slowly correct hypokalemia with 40 IV potassium with repeat potassium check as kidney functions poor, slow correction #Hyperkalemia: Previously corrected Patient is strictly does not want hemodialysis, even it was temporary, he understand that this might inadvertently short on his lifespan. Had a lengthy discussion in the presence of RN witnessed. I. Endocrine: #Left adrenal nodule: Morning cortisol elevated on 07/10/2024 45.68 J. MSK: # mild to moderate malnutrition with loss of muscle mass K. Prophylaxis: PPI: Pantoprazole Oral DVT: SCDs L. Lines & Drains (with insertion date): NG tube IV lines infiltrated, removed, PICC line inserted on 07/17 N. Disposition: Remains STELLA Updated Tri (close friend), designated (POA) by the patient for all decision-making. Appropriate paperwork and further discussion for rest of the team. Family's updated regarding the overall health. The plan was discussed with the ICU attending Dr. Carmichael. The patient care consists of total 86 minutes of critical care time excluding the procedures. Dictated by Cesar Liriano MD with 3M MModal Fluency. Plan discussed with: Patient, Other My Orders My Orders Orders - CESAR LIRIANO RESIDENT Procedure Category Date Status Time Acetylcysteine PHA 07/20/24 In Process Inhalation 10% 11:15 Levalbuterol Hcl PHA 07/20/24 In Process (Xopenex Medneb) 11:15 Acetaminophen Iv PHA 07/20/24 In Process (Ofirmev) 14:30 Primaquine Phosphate PHA 07/20/24 In Process (Primaquine Phospha 22:00 Lorazepam 2mg/Ml Inj PHA 07/20/24 In Process (Ativan Inj) 19:00 Dietary Evaluation Review Comments: 1. advance diet when medically feasible: Renal Sepcific 40g Protein restriction diet, supplement his protein needs with clinimix @ 41ml/hr (42.5 gPro 510 kcal) 2. TPN per pharmacy if NPO > 7 days Expected Outcomes/Goals: gradual wt gain, improved nutrition status. grdual healed wounds. CESAR LIRIANO RESIDENT Jul 20, 2024 20:38
--- NOTE | 2024-07-20 21:03 | DVHPN2 ---
Progress Note - Dictate Date Seen: Jul 20, 2024 Has the PT tested + for MRSA If YES, has PT been informed?: Yes Medical Necessity Reason Pt with a Central, PICC or Fol: Yes The following are medically ne: Chua Catheter Reason for chua catheter: Strict I&O Subjective PATIENT DOES NOT WANT ANY INFORMATION SHARED 07/13/24 Re-Assessment Re: HIGINIO HUANG spoke with patient uncle Blaine ([phone]) in regards to patients wishes when he was a/ox4. Per patient he did not want any family to be provided with any medical information. Since patient is unable to make any medical decisions at that moment, who will make any medical decisions would have to be determined. Service Captain will be consulted. Per patients Uncle patient has no Next of Kin, last remaining member of his immediate family. On 07/15/24, his nurse told me that I could talk to his uncle and friend, Aleena Moss is a 28 years old gentleman with a history of HIV/aids, he was transferred from the [facility] on 06/08/2024 for further evaluation treatment. On 07/11/24, he had seizure-like activity however his nurse and medical staff did not witnessed symptoms. I have seen and examined the patient, I have talked to his nurse, he was awake, but is in obvious respiratory distress, not able to talk. He is oriented to person, place at least, he tracks and follows a little bit His heart rate at this time is 140-150/minute, respiration: Close to 30/minute other medical staff, he is awake, able to speak a little bit, he likely knew he was in the hospital No seizure symptoms reported Phenytoin, 07/14/2024:15.7 (Alb: 2.8), 07/15/2024: 12.9 CSF, 07/11/2024: RBC: Five, protein: 46 found eight, glucose: 49 UDS, 06/26/2024: Opiates Plasma alcohol, 06/25/2024: Normal Urinalysis, 07/17/2024: WBC: Negative, urine leukocyte esterase: Negative WBC/HB/PLT/MCV, 07/12/2024: 4.4/6.4/331/78 0.1 PT/INR/PTT, 06/15/2024: 0.2/35/29/112, 06/12/2024: 11.1/1.06/29.3 Na, 06/08/2024: 136, 06/15/24:129, 06/20/24: 122, 06/24/2024: 117, 06/25 06/30: 121, 07/03/2024: 120, 07/06/2024: 123, 07/12/24: 132 BUN/CR, 07/02/2024: 15/0.49 07/12/2024: 68/4.30 TBI/AST/ALT/AP, 06/24/2024: 4.10/2515/1321/482, 07/02/2024: 9.8/71/196/710, 07/12/2024: 3.2/79/50/395 EEG, 07/13/2024: Electrographic status epileptics EEG, 07/17/2024: Moderate to severely abnormal EEG CT head, 07/11/2024: No acute intracranial proces CT head, 07/15/2024: No evidence of acute intracranial abnormality MRI head, 07/06/2024: No acute cardiopulmonary disease. vital signs Vital Sign Date Time Temp Pulse Resp B/P (MAP) Pulse Ox O2 Delivery O2 Flow Rate FiO2 07/20/24 18:30 139 35 136/86 (103) 95 07/20/24 18:00 98.9 98.9 07/20/24 13:50 6.0 07/20/24 12:42 Simple Mask* 50 Total Intake and Output 07/19/24 07/19/24 07/20/24 15:00 23:00 07:00 Intake Total 1528 ml 1386 ml 1100 ml Output Total 1460 ml 1250 ml Balance 1528 ml -74 ml -150 ml medications Current Medications Medications Dose Ordered Sig/Sean Route Start Time Stop Time Status Last Admin Dose Admin Guaifenesin/ Dextromethorphan 10 ml Q4HP PRN PO 06/08/24 11:00 07/10/24 01:48 10 ML Morphine Sulfate 1 mg Q4HPRN PRN IV 06/16/24 14:00 07/17/24 03:47 1 MG Ondansetron HCl 4 mg Q4HP PRN IV 06/21/24 16:00 07/18/24 02:05 4 MG Nystatin 5 ml QID MT 06/27/24 12:00 07/20/24 19:23 5 ML Ursodiol 300 mg BID PO 06/28/24 22:00 07/18/24 09:25 300 MG Morphine Sulfate 2 mg Q4HPRN PRN IV 06/29/24 16:45 07/17/24 01:25 2 MG Docusate Sodium 200 mg DAILYPRN PRN PO 07/02/24 14:30 Artificial Tears 1 drop Q6HP PRN EACHEYE 07/03/24 14:00 07/20/24 06:34 1 DROP Linezolid 300 ml @ 150 mls/hr Q12HR IV 07/11/24 22:00 07/20/24 08:59 150 MLS/HR Metoclopramide HCl 5 mg Q8HPRN PRN IV 07/12/24 12:00 07/19/24 08:24 5 MG Diagnostic Test (Pha) 1 strip Q6HR 07/12/24 18:00 07/20/24 19:24 1 STRIP Insulin Human Regular FOLLOW SLIDING SCALE Q6HR SC 07/12/24 18:00 07/19/24 23:38 2 UNITS Dextrose 50 ml UD IV 07/12/24 17:45 Levetiracetam 100 ml @ 400 mls/hr BID IV 07/12/24 22:00 07/20/24 09:34 400 MLS/HR Lorazepam 1 mg Q5MINP PRN IV 07/12/24 21:15 07/17/24 02:39 1 MG Azithromycin 250 ml @ 125 mls/hr DAILY@1800 IV 07/14/24 18:00 07/20/24 19:23 125 MLS/HR Rifampin 600 mg DAILY@2100 GT 07/13/24 21:00 07/17/24 21:10 600 MG Phenytoin Sodium 100 mg Q8HR IV 07/14/24 06:00 07/20/24 15:23 100 MG Amino Acids 0 ml @ 0 mls/hr PER PHARMACY IV 07/15/24 22:00 Sodium Chloride 10 ml QSHIFT@10,22 IV 07/17/24 22:00 07/20/24 09:00 10 ML Sodium Chloride 1,000 ml @ 60 mls/hr [id number] IV 07/19/24 09:15 07/20/24 18:35 60 MLS/HR Pantoprazole Sodium 40 mg BID IV 07/19/24 22:00 07/20/24 08:59 40 MG Fat Emulsion Intravenous 50 ml/ Sodium Phosphate 20 meq/Potassium Chloride 20 meq/ Potassium Acetate 30 meq/Calcium Gluconate 3.5 meq/ Magnesium Sulfate 12 meq/ Multivitamins 10 ml/Amino Acids/ Dextrose/Purified Water 1,200.5268 ml @ 50 mls/hr Q24H1M IV 07/19/24 22:00 07/20/24 21:59 07/19/24 21:56 50 MLS/HR Erythromycin 1 applic Q4HR OP 07/19/24 14:00 07/20/24 19:23 1 APPLIC Fat Emulsion Intravenous 100 ml/Sodium Chloride 20 meq/ Potassium Chloride 20 meq/ Potassium Acetate 20 meq/Calcium Gluconate 3.5 meq/ Magnesium Sulfate 12 meq/ Multivitamins 10 ml/Chromium/ Copper/Manganese/ Zinc 1 ml/Amino Acids/Dextrose/ Purified Water 1,396.5268 ml @ 58 mls/hr Q24H5M IV 07/20/24 22:00 07/21/24 21:59 Acetylcysteine 200 mg Q6HPRN PRN IN 07/20/24 11:15 07/20/24 12:41 200 MG Levalbuterol HCl 1.25 mg Q6HR PRN NEB 07/20/24 11:15 07/20/24 12:41 1.25 MG Acetaminophen 1,000 mg Q8H PRN IV 07/20/24 14:30 07/20/24 15:00 1,000 MG Primaquine Phosphate 52.6 mg HS PO 07/20/24 22:00 08/10/24 21:59 Clindamycin Phosphate 50 ml @ 50 mls/hr Q8HR IV 07/20/24 22:00 Cefepime HCl 50 ml @ 25 mls/hr Q24H IV 07/20/24 20:00 07/20/24 20:00 25 MLS/HR Lorazepam 1 mg Q6HP PRN IV 07/20/24 19:00 07/20/24 20:01 1 MG objective General: the patient is well developed and nourished. MENTAL STATUS: Subjective SPEECH, LANGUAGE, HIGHER CORTICAL FUNCTION: Deferred CRANIAL NERVES: Pupils are equal, round and reactive. There is conjugated eye more sometimes, no sign of facial weakness SENSATION: Okay to light touch MOTOR: Normal tone in the upper and lower extremity. Subjective REFLEXES: Deep tendon reflexes are symmetrical. No pathological reflexes. CEREBELLAR/COORDINATION: Deferred GAIT/STATION: deferred laboratory and microbiology Laboratory Tests 07/20/24 04:46 Test 07/20/24 04:46 Range/Units Serum Glucose 80 74-106 mg/dL Problem List Witnessed seizure-like activity Altered mental status Status epilepticus Metabolic encephalopathy Aids Anemia Leukopenia Kidney failure Elevated liver function tests Hyponatremia Mentally looks better, but he has tachycardia and acute respiratory distress Assessment/Plan Monitoring Supportive treatment STELLA care Aerosol isolation Oxygen Respiratory support p.r.n. Stabilize vitals p.r.n. IV antibiotics Dilantin 100 mg IV Q 8 hours Keppra 1000 mg b.i.d. Ativan for seizure breakthrough TPN More recommendation per clinical course This medical document was created using an electronic medical record system with [employer] dictation system. Although this document has been carefully reviewed, there may still be some phonetic and typographical errors. These areas are purely typographical due to imperfections of the software programs, and do not reflect any compromise in the patient's medical care Prognosis poor Dietary Evaluation Review Comments: 1. advance diet when medically feasible: Renal Sepcific 40g Protein restriction diet, supplement his protein needs with clinimix @ 41ml/hr (42.5 gPro 510 kcal) 2. TPN per pharmacy if NPO > 7 days Expected Outcomes/Goals: gradual wt gain, improved nutrition status. grdual healed wounds. Plan discussed with: Other JEFFERY CHAVEZ MD Jul 20, 2024 21:03
[2024-07-20] MEDS: CLINDAMYCIN 900MG IV 50 ML IV SCH (21:34)
[2024-07-20] MEDS: PRIMAQUINE PO SCH (21:35)
[2024-07-20] MEDS: TPN PER PHARMACY IV NR (21:37)
[2024-07-21] VITALS (39 sets, daily range): BP systolic 79–160; BP diastolic 35–89; PULSE 49–165; RESP 9–35; TEMP 98.8–99.9; O2SAT 27–100
[2024-07-21 00:50] LABS: Base Excess -4.1 mmol/L (-2.0-3.0)
[2024-07-21 01:48] LABS: Hemoglobin 6.4 g/dL (13.5-17.5)
[2024-07-21 02:36] LABS: Platelet Count (auto) 162 10^3/uL (140-450); White Blood Cell 12.2 10^3/uL (4.4-10.8)
[2024-07-21 02:39] LABS: Hematocrit 19.8 % (41.0-53.0); Mean Corpuscular Hgb Conc. 32.9 g/dL (32.0-36.0); Mean Corpuscular Volume 82.1 fL (80.0-100.0); Red Blood Cells 2.42 10^6/uL (4.5-5.90)
[2024-07-21 02:52] LABS: Hemoglobin 6.5 g/dL (13.5-17.5)
[2024-07-21 02:54] LABS: Alanine Aminotransferase 16 U/L (7-40); Basophils % (manual) 0 (0.0-2.0); Blast Cells 0; Carbon Dioxide 26 mmol/L (20-31); Chloride 101 mmol/L (98-107); Metamyelocytes % 0; Promyelocytes % 0; Reactive Lymphocytes 0
[2024-07-21 02:55] LABS: Anion Gap 11 (5-15); Phosphorus 4.8 mg/dL (2.4-5.1); Sodium 138 mmol/L (136-145)
[2024-07-21 02:57] LABS: Albumin 2.6 g/dL (3.2-4.8); Alkaline Phosphatase 340 U/L (46-116); Aspartate Aminotransferase 53 U/L (13-40); Bilirubin, Total 1.4 mg/dL (0.2-1.0); Blood Urea Nitrogen 63 mg/dL (9-23); Calcium 8.1 mg/dL (8.7-10.4); Glucose 118 mg/dL (74-106); Lipase 461 U/L (12-53); Potassium 3.4 mmol/L (3.5-5.1); Total Protein 4.8 g/dL (5.7-8.2)
[2024-07-21 05:10] LABS: Band Neutrophils % (manual) 15; Eosinophils % (manual) 1 (0-7); Lymphocytes % (manual) 4 (10.0-50.0); Monocytes % (manual) 4 (0-12); Myelocytes % 1; Platelet Estimate Adequate
[2024-07-21] MEDS: NOREPINEPHRINE 8 MG/250ML KIT 250 ML IV ONE (05:55)
[2024-07-21] MEDS ORDERED: PHENYLEPHRINE IV 250 ML IV ONE (06:01)
[2024-07-21] MEDS ORDERED: PHENYLEPHRINE IV 250 ML IV SCH (06:30)
[2024-07-21] MEDS: NOREPINEPHRINE 8 MG/250ML KIT 250 ML IV SCH (06:40)
--- NOTE | 2024-07-21 06:56 | DVH ---
CHEST RADIOGRAPH Indication: Follow-up Technique: Single frontal view of the chest was obtained Comparison: XY CHEST XRAY 1 VIEW on DOS: 07/19/24, XY CHEST PORTABLE on DOS: 07/14/24, XY CHEST XRAY 1 V IEW on DOS: 07/06/24 IMPRESSION: Enteric tube appear stable. Bilateral alveolar airspace opacities have worsened in the interval may represent bilateral pneumonia, pulmonary edema, or ARDS. Left PICC line appears unchanged. No sizable effusion or pneumothorax.
--- NOTE | 2024-07-21 07:47 | RESUS ---
CODE BLUE ASSESSSMENT History of Events History of Events: Pt admitted on 06/08/24 for R/O acute respiratory distress TB. Pt Appeared estrellita on monitor, was PEA on pulse check. Code blue called. Initial Information Date: Jul 21, 2024 Time: 05:49 Location of Arrest: ICU (Central) Arrest Witnessed: Yes CPR started initial time: 05:49 CPR started by whom: Hospital Staff Pre-Hospital Care: Pre-Code Care (inpatient) Type of arrest: Cardiac, Respiratory, Adult Spontaneous Respirations: No Pulse Present: No Monitoring: ECG, Pulse Oximetry, Telemetry Crash Cart Opened and Supplies: Yes Airway Ventilation Breathing at Onset: Agonal O2 Sat by Pulse Oximetry: 74 Oxygen Delivery Method: Ambu-Bag Time of first Assisted Ventila: 05:49 Artificial Ventilation: Bag/Mask Suctioning (Oral/Tracheal): Yes (During second code) Comments: Pt is a DNI Circulation Circulation #1: Time: 05:49 Pulse Rate (adult): 0 Blood Pressure Systolic: 0 Blood Pressure Diastolic: 0 Temperature (Fahrenheit): 99.7 (F; rectal) Circulation Comment: Pt PEA Circulation #2: Time: 05:53 Pulse Rate (adult): 0 Blood Pressure Systolic: 0 Blood Pressure Diastolic: 0 Circulation Comment: PEA Circulation #3: Time: 05:55 Pulse Rate (adult): 109 Blood Pressure Systolic: 160 Blood Pressure Diastolic: 87 Circulation Comment: ROSC Circulation #4: Time: 06:49 Pulse Rate (adult): 0 Blood Pressure Systolic: 0 Blood Pressure Diastolic: 0 Temperature (Fahrenheit): 99.5 (F- rectal) Circulation Comment: Pulses lost CODE BLUE was called Circulation #5: Time: 06:52 Pulse Rate (adult): 0 (0) Blood Pressure Systolic: 0 Blood Pressure Diastolic: 0 Circulation Comment: PEA Circulation #6: Time: 06:56 Pulse Rate (adult): 0 (0) Blood Pressure Systolic: 0 Blood Pressure Diastolic: 0 Circulation Comment: PEA Circulation #7: Time: 06:58 Pulse Rate (adult): 0 Blood Pressure Systolic: 0 Blood Pressure Diastolic: 0 Circulation Comment: TOD- Asystole Procedure - IV Procedure - IV #1: IV Side: Left IV Location: Forearm Anterior IV Catheter Type: Peripheral IV IV Placed: In Hospital Comment Placed pre-code Procedure - IV #2: IV Side: Left IV Location: Upper Arm Anterior IV Catheter Type: PICC Line IV Placed: In Hospital IV Placed by Placed pre-code by PICC data entry supervisor - IV #3: IV Side: Right IV Location: Upper Arm Anterior IV Catheter Type: Mid-line IV Placed: In Hospital Comment Placed pre-code Medications & Response Medications and Responses #1: Medication Time: 05:52 ADULT Medications Given ADULT: Epinephrine 1 mg Route of Administration: IV Heart Rate: 0 EKG Rhythm: PEA Blood Pressure Systolic: 0 Blood Pressure Diastolic: 0 EKG Rhythm: PEA Medications and Responses #2: Medication Time: 05:55 ADULT Medications Given ADULT: Epinephrine 1 mg Route of Administration: IV EKG Rhythm: PEA Blood Pressure Systolic: 0 (0) Blood Pressure Diastolic: 0 EKG Rhythm: PEA Medications and Responses #3: Medication Time: 05:58 ADULT Medications Given ADULT: Sodium Bacarbinate 50 meq Route of Administration: IV EKG Rhythm: PEA Blood Pressure Systolic: 0 Blood Pressure Diastolic: 0 Medications and Responses #4: Medication Time: 06:50 ADULT Medications Given ADULT: Epinephrine 1 mg Route of Administration: IV Heart Rate: 0 EKG Rhythm: PEA Blood Pressure Systolic: 0 Blood Pressure Diastolic: 0 Medications and Responses #5: Medication Time: 06:52 ADULT Medications Given ADULT: Epinephrine 1 mg Route of Administration: IV EKG Rhythm: PEA Blood Pressure Systolic: 0 Blood Pressure Diastolic: 0 EKG Rhythm: PEA Medications and Responses #6: Medication Time: 06:53 ADULT Medications Given ADULT: Sodium Bacarbinate 50 meq Route of Administration: IV Heart Rate: 0 EKG Rhythm: PEA Blood Pressure Systolic: 0 Blood Pressure Diastolic: 0 Respiratory Rate: 0 Medications and Responses #7: Medication Time: 06:54 ADULT Medications Given ADULT: Epinephrine 1 mg Route of Administration: IV Heart Rate: 0 EKG Rhythm: PEA Blood Pressure Systolic: 0 Blood Pressure Diastolic: 0 EKG Rhythm: PEA Medications and Responses #8: Medication Time: 06:56 ADULT Medications Given ADULT: Epinephrine 1 mg Route of Administration: IV EKG Rhythm: PEA Blood Pressure Systolic: 0 Blood Pressure Diastolic: 0 Medications and Responses #9: Medication Time: 06:56 ADULT Medications Given ADULT: Calcium Chloride 10 mL Heart Rate: 0 EKG Rhythm: PEA Blood Pressure Systolic: 0 Blood Pressure Diastolic: 0 EKG Rhythm: PEA Medications and Responses #10: Medication Time: 06:58 ADULT Medications Given ADULT: Epinephrine 1 mg Route of Administration: IV Heart Rate: 0 EKG Rhythm: PEA Blood Pressure Systolic: 0 Blood Pressure Diastolic: 0 EKG Rhythm: PEA Procedure - Elliott Catheter Urinary Catheter Type/Location: Uretheral (Elliott) Urinary Catheter Size: 16 Urine Color: Yellow, Dark Emerita Elliott Catheter Secured: Yes Nurses Notes Slayden Coma Scale Eye Opening: None (1) Nate Coma Scale Verbal: None (1) Slayden Coma Scale Motor: None (1) Glascow Total: 3 Pupil Reaction: Non Reactive EKG Rhythm: PEA Nurses Notes - Comment: Levophed started at 0558 Pt placed back on hi flow O2 at 70 & 100 with NRB d/t DNI status Pt coded for second time at 0649; continuation on code sheet Time Code Ended Time Code Ended: 06:58 Post Arrest Status: Outcome of code: Unsuccessful Patient pronounced by: Dr. Rodriguez Time patient pronounced: 06:58 Code Team Present: Dr. Li - Resident; Dr Rodriguez - Resident; PARAS Downs - Hospitalist; Lida Garcia RN- ICU charge; Flora Ramos RN - [employer] Sales Consultant; Shyam Monson RN - [employer] Sales Consultant; Mohan Stevens- RT; Sydney Ayers, CCT; Hemanth Griffith, RN; Keshia Cook, RN; Manda Stuart, RN - ICU charge; , Harish Serrato-RT; Bree Monson, NA; Inna Stuart, RN; Tory Cook, RT. ROSC Time of ROSC: 05:58 (ROSC achieved with first code; on 2nd code) Pt Meets Criteria for Therapeu: No Therapeutic Hyperthermia Start: SHYAM Dial Jul 21, 2024 07:47
[2024-07-21] MEDS ORDERED: POTASSIUM CHL 20MEQ/100ML 100 ML IV ONE (10:00)
[2024-07-21] MEDS ORDERED: EPINEPHrine HCL 1 MG/10 ML SYRG IV ONE (10:56)
--- NOTE | 2024-07-21 11:09 | DVHPN2 ---
Consult Progress Note Date Seen: Jul 19, 2024 Subjective Patient reports: Other (a bit more awake and alert today , did have a fever overnight and today at 102, had aspiration where he vomited , NG tube in place . not really following commands , having rigors , following with eyes , having at least 200ccs of diarrhea ) Objective vital signs Vital Sign Date Time Temp Pulse Resp B/P (MAP) Pulse Ox O2 Delivery O2 Flow Rate FiO2 07/21/24 07:47 74 Ambu-Bag 07/21/24 06:50 115/37 (63) 07/21/24 06:21 60.0 90 Total Intake and Output 07/20/24 07/20/24 07/21/24 15:00 23:00 07:00 Intake Total 1380 ml 1446 ml 878.5 ml Output Total 1800 ml 250 ml Balance 1380 ml -354 ml 628.5 ml medications General Appearance: Cooperative. Well developed. Thin body habitus. NAD Head Exam: Normal inspection Neck Exam: Normal inspection. Non-tender. Normal alignment Pulmonary/Respiratory: Chest non-tender. Clear bilateral breath sounds Cardiovascular/Chest: Regular rate and rhythm. No murmurs. No JVD. Peripheral Pulses: 2+ Radial (R). 2+ Radial (L). 2+ Pedal (R). 2+ Pedal (L) Abdominal Exam: Normal bowel sounds. Soft. Nontender. No hepatospenomegaly. No masses Ankle Exam: Negative ankle edema Lower extremities: Negative lower extremity edema Neuro/Mental Status: A&O x4. Coherent Thoughts/Psych: Normal thought pattern. Appropriate mood and affect. Good judgement and insight Appearance: In no acute distress Skin Exam: Normal inspection. Normal color. Warm. 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 Age cholangiopathy/medication induced Hyponatremia likely due to SIADH Pulmonary nodule, 2 cm in size Left adrenal nodule Severe anemia Immunosuppressed Homosexual. Assessment: Patient is an HIV patient , 28 years old and diagnosed in May 2024 [facility] and transferred to [facility] . Patient CD4 count of 10 , viral load over 1 million and patient presented with acute hypoxic respiratory failure fevers and has been in hospital for about 1 month and in ICU requiring levofed . has a bronchoscopy done showing BAL cytology finding consistency with PJP pneumonia so started on bactrum from 7 days and then discontinued due to patient developing LFT elevation as well as hyperbilirubinemia . switched to climdamycin then discontinued due to patient improving and put on room ai r, evaluated for TB , AFB sputum has been negative and MTBPCR x2 has been negative however after 2 weeks 1 of patients sputum is growing AFB organism thats yet to be identified. feels a bit weak and has been having weightloss , fevers , chills for the last several months, last febrile was 48 hours ago with a temp of 100.5 and is neuropenic with a whitecount of 1.2 and is tachycardic with HR of 128 . low body weight of 54.1 kg and kexia and poor historia , having anemia with a hemoglobin of 7.6 which has been going down during admission . problem list includes HIV Aids , pneumonia , multi opportunistic organism infection including PJP and possibly TB vs Mac infection , cytopenias , neutropenic fever , sepsis , anemia , UTI with enterococcus . 12 point review systems and vitals signs and relevant imaging has been reviewed by me . plan for patient would be to stop ampicillin and start vancomycin and cefamine empirically due to fevers and unresolved sepsis and continue until fevers have resolved for 48 hours and meutropenia has improved . would check prior hold HAART therapy until TB infection is ruled out as cryptococal toxoplasm and CMV infections . check serologies for these and would restart patient on bactrum to finish 21 day course , will monitor LFTs and anemia . recommend checking AFB blood in stool for further evaluation of MAC infection and follow up on AFB cultures . continue airborne and droplet isolation precautions 2/4; continues to be febrile and was reported by Dr Vu in the AM to be more alert , lethargic and not responding to questions but responding to deep sternal rub . patients whitecount is rising and kidney function is worsening. Is on room air and can forgo PJP treatments since it is unlikely playing a large role in septic picture and patietns on room ait . Patient weighs 106 lbs , so attempt to lower bactrum to 1 double strength tablet 3x a day and monitor kidney function , can stop vancomycin in setting of VEL and will switch to linasolid and continue cefepime. If mentation does not improve in next 24 hours patient will need lumbar puncture. recommend repeating blood cultures and doing a chest ct of abdomen and pelvis 2/: remains uptunded but is able to protenct airway , underwent a lumbar puncture earlier in the day and is still not responsive and pulling out lines . no fever in the last 24 hours but patient is having rising keratin , BUN 68 which is possibly contributing to an altered mental staus . however would want to rule out any type of infectious meningitis in the setting of AIDs for lumbar punture recommend bacterial AFB fungal culture , viral culture , CMV antibuody , VZV antibody , cryptococcus antibody , coxy antibody , RPR , HSVPR , PCR , VDRL . Continue linazolid and cefepime which will provide patient with adequate menegitis coverage . unclear ideology staus at this stime but suspect its a combination of HIV encephalopathy with providing a low baseline mentation in setting of uremia , worsening kidney function may be attributable to bactrum vs HIV nephropathy . Patients BP is holding steady a bit on the low side , waiting to follow up on AFB culture speciation to see if we are attempting to treat MAC vs TB . Hold of on HAART therapy for now while awaiting results for cryptococcal and AFB studies. will hold off Bactrim to avoid worsening keratin from nephrotoxicity and PJP is not a priority to treat at this time 2: Is breathing on room air and remains largely obtained but is still protecting his airway . lumbar puncture bacterial culture suggests that there is no acute concern for bacterial infection in the CSF . Plan for patient to stop Bactrim due to rising creatine and continue empirical therapy with linezolid and cefepime . will continue to follow up on AFB culture results 07/13: continues to feel lethargic and not really waking up but does respond to sternal rub and is protecting his airway . no neck ridgitiy . AFB cultures have return positive for microbacterial avium complex still awaiting AFB blood and stool to confirm disseminated MAC infection so for now continue linezolid and cefepime therapy in addition will add ethambutol and rifampin and azithromycin via Ngtube . Would recommend repeating EKG to monitor QTC in 5 days as well as check LTFs daily while on rifampin therapy 07/14: C diff testing is negative . renal function continues to worsen . patients altered mental status is likely related to uremia , BUN of 75 , creatine of 4.39 , patient may require dialysis 07/15: patients kidney function continues to decline 07/16: whitecount is 10.1 , BUN 66, kidney function continues to worsen and has diarrhea possibly related to multiple antibiotics given 07/17: whitecount is 8.2 , creatine is 4.64 , BUN is 68. evaluation for menegitis when workup is negative , still followup up on multiple serologies / CSF tests 07/18: whitecount is 8.2 , and is getting more anemic with hemoglobin at 7.2 and worsening kidney function and a creatine of 4.64 . Patient is still making good urine however unclear if patient will be able to wake due to uremia being as high as it is . undiagnosed possible meningitis 07/19: patient appears to have an acute hospital acquired infection , tachycardia in the 140s , likely suspecting aspiration pneumonia Plan: - start Zosyn - Check Chest xray and sputum cultures , blood cultures - patient should be considered for other opportunistic infections including , CMV , red nightus , possible pjp pneumonia , progression or MAC/opportunistic diarrheal illness - recommedn getting stool cultures , CMVPCR - would discuss with nephrology and patients power of civil rights attorney if patient is going to have impending dialysis needs and if dialysis is in patients future that would change the recommended HAART therapy utilized and therapy wants a decision on dialysis - cryptococcal antigen is negative , PCR is negative , VDRL is negative so will opt to start patient on HAART therapy and will discuss with pharmacy what options are available due to patients renal function - if diarrhea persists would consider acquiring a stool culture , c.diff testing is negative - Will talk with pharmacy to add a HAART therapy compatible with patients renal failure to if controlling viremia would help with improving renal function however will need to await for CSF cryptococcal antigen to return - continue rifampine, linezolid, ethambutol, and azithromycin for mac infection and meningitis coverage Authorized and Performed by: MD Paredes Total critical care time: Approximately 75 minutes Due to a high probability of clinically significant, life threatening deterioration, the patient required my highest level of preparedness to intervene emergently and I personally spent this critical care time directly and personally managing the patient. This critical care time included obtaining a history; examining the patient; pulse oximetry; ordering and review of studies; arranging urgent treatment with development of a management plan; evaluation of patient's response to treatment; frequent reassessment; and, discussions with other providers. This critical care time was performed to assess and manage the high probability of imminent, life-threatening deterioration that could result in multi-organ failure. It was exclusive of separately billable procedures and treating other patients and teaching time. Plan discussed with: Other Dietary Evaluation Review Comments: 1. advance diet when medically feasible: Renal Sepcific 40g Protein restriction diet, supplement his protein needs with clinimix @ 41ml/hr (42.5 gPro 510 kcal) 2. TPN per pharmacy if NPO > 7 days Expected Outcomes/Goals: gradual wt gain, improved nutrition status. grdual healed wounds. JONO CAPUTO MD Jul 21, 2024 11:08
--- NOTE | 2024-07-21 11:14 | DVHPN2 ---
Consult Progress Note Date Seen: Jul 20, 2024 Subjective Patient reports: Other (continues to have fevers intermittedly , on 6 liters nasal canula , crackles in lungs bilaterally , waxing weaning mentation but mostly nable to follow commands of answer questions ) Objective vital signs Vital Sign Date Time Temp Pulse Resp B/P (MAP) Pulse Ox O2 Delivery O2 Flow Rate FiO2 07/21/24 07:47 74 Ambu-Bag 07/21/24 06:50 115/37 (63) 07/21/24 06:21 60.0 90 Total Intake and Output 07/20/24 07/20/24 07/21/24 15:00 23:00 07:00 Intake Total 1380 ml 1446 ml 878.5 ml Output Total 1800 ml 250 ml Balance 1380 ml -354 ml 628.5 ml laboratory and microbiology Laboratory Tests 07/21/24 02:10 Test 07/21/24 02:10 Range/Units Serum Glucose 118 H 74-106 mg/dL Problem List/Assessment/Plan Problems(with codes): (1) Hyponatremia (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 Age cholangiopathy/medication induced Hyponatremia likely due to SIADH Pulmonary nodule, 2 cm in size Left adrenal nodule Severe anemia Immunosuppressed Homosexual. Assessment: Patient is an HIV patient , 28 years old and diagnosed in May 2024 [facility] and transferred to [facility] . Patient CD4 count of 10 , viral load over 1 million and patient presented with acute hypoxic respiratory failure fevers and has been in hospital for about 1 month and in ICU requiring levofed . has a bronchoscopy done showing BAL cytology finding consistency with PJP pneumonia so started on bactrum from 7 days and then discontinued due to patient developing LFT elevation as well as hyperbilirubinemia . switched to climdamycin then discontinued due to patient improving and put on room ai r, evaluated for TB , AFB sputum has been negative and MTBPCR x2 has been negative however after 2 weeks 1 of patients sputum is growing AFB organism thats yet to be identified. feels a bit weak and has been having weightloss , fevers , chills for the last several months, last febrile was 48 hours ago with a temp of 100.5 and is neuropenic with a whitecount of 1.2 and is tachycardic with HR of 128 . low body weight of 54.1 kg and kexia and poor historia , having anemia with a hemoglobin of 7.6 which has been going down during admission . problem list includes HIV Aids , pneumonia , multi opportunistic organism infection including PJP and possibly TB vs Mac infection , cytopenias , neutropenic fever , sepsis , anemia , UTI with enterococcus . 12 point review systems and vitals signs and relevant imaging has been reviewed by me . plan for patient would be to stop ampicillin and start vancomycin and cefamine empirically due to fevers and unresolved sepsis and continue until fevers have resolved for 48 hours and meutropenia has improved . would check prior hold HAART therapy until TB infection is ruled out as cryptococal toxoplasm and CMV infections . check serologies for these and would restart patient on bactrum to finish 21 day course , will monitor LFTs and anemia . recommend checking AFB blood in stool for further evaluation of MAC infection and follow up on AFB cultures . continue airborne and droplet isolation precautions 2/4; continues to be febrile and was reported by Dr Vu in the AM to be more alert , lethargic and not responding to questions but responding to deep sternal rub . patients whitecount is rising and kidney function is worsening. Is on room air and can forgo PJP treatments since it is unlikely playing a large role in septic picture and patietns on room ait . Patient weighs 106 lbs , so attempt to lower bactrum to 1 double strength tablet 3x a day and monitor kidney function , can stop vancomycin in setting of VEL and will switch to linasolid and continue cefepime. If mentation does not improve in next 24 hours patient will need lumbar puncture. recommend repeating blood cultures and doing a chest ct of abdomen and pelvis 07/11: remains uptunded but is able to protenct airway , underwent a lumbar puncture earlier in the day and is still not responsive and pulling out lines . no fever in the last 24 hours but patient is having rising keratin , BUN 68 which is possibly contributing to an altered mental staus . however would want to rule out any type of infectious meningitis in the setting of AIDs for lumbar punture recommend bacterial AFB fungal culture , viral culture , CMV antibuody , VZV antibody , cryptococcus antibody , coxy antibody , RPR , HSVPR , PCR , VDRL . Continue linazolid and cefepime which will provide patient with adequate menegitis coverage . unclear ideology staus at this stime but suspect its a combination of HIV encephalopathy with providing a low baseline mentation in setting of uremia , worsening kidney function may be attributable to bactrum vs HIV nephropathy . Patients BP is holding steady a bit on the low side , waiting to follow up on AFB culture speciation to see if we are attempting to treat MAC vs TB . Hold of on HAART therapy for now while awaiting results for cryptococcal and AFB studies. will hold off Bactrim to avoid worsening keratin from nephrotoxicity and PJP is not a priority to treat at this time 07/12: Is breathing on room air and remains largely obtained but is still protecting his airway . lumbar puncture bacterial culture suggests that there is no acute concern for bacterial infection in the CSF . Plan for patient to stop Bactrim due to rising creatine and continue empirical therapy with linezolid and cefepime . will continue to follow up on AFB culture results 07/13: continues to feel lethargic and not really waking up but does respond to sternal rub and is protecting his airway . no neck ridgitiy . AFB cultures have return positive for microbacterial avium complex still awaiting AFB blood and stool to confirm disseminated MAC infection so for now continue linezolid and cefepime therapy in addition will add ethambutol and rifampin and azithromycin via Ngtube . Would recommend repeating EKG to monitor QTC in 5 days as well as check LTFs daily while on rifampin therapy 07/14: C diff testing is negative . renal function continues to worsen . patients altered mental status is likely related to uremia , BUN of 75 , creatine of 4.39 , patient may require dialysis 07/15: patients kidney function continues to decline 07/16: whitecount is 10.1 , BUN 66, kidney function continues to worsen and has diarrhea possibly related to multiple antibiotics given 07/17: whitecount is 8.2 , creatine is 4.64 , BUN is 68. evaluation for menegitis when workup is negative , still followup up on multiple serologies / CSF tests 07/18: whitecount is 8.2 , and is getting more anemic with hemoglobin at 7.2 and worsening kidney function and a creatine of 4.64 . Patient is still making good urine however unclear if patient will be able to wake due to uremia being as high as it is . undiagnosed possible meningitis 07/19: patient appears to have an acute hospital acquired infection , tachycardia in the 140s , likely suspecting aspiration pneumonia 07/20: chest xray shows bilateral pulmonary opacities which were present in the prior chest xray , consistent with pulmonary edema or pneumonia Plan: - recommend starting primaquine and clindamycin for PJP pneumonia - Stop Zosyn switch to Cefepime - Check Chest xray and sputum cultures , blood cultures - defer initiation of HAART therapy to after a decision has been made in regard to desire to pursue dialysis - continue rifampine, linezolid, ethambutol, and azithromycin for mac infection and meningitis coverage - patient should be considered for other opportunistic infections including , CMV , red nightus , possible pjp pneumonia , progression or MAC/opportunistic diarrheal illness - follow up on stool cultures , CMVPCR - would discuss with nephrology and patients power of personal injury attorney if patient is going to have impending dialysis needs and if dialysis is in patients future that would change the recommended HAART therapy utilized and therapy wants a decision on dialysis - cryptococcal antigen is negative , PCR is negative , VDRL is negative so will opt to start patient on HAART therapy and will discuss with pharmacy what options are available due to patients renal function - if diarrhea persists would consider acquiring a stool culture , c.diff testing is negative - Will talk with pharmacy to add a HAART therapy compatible with patients renal failure to if controlling viremia would help with improving renal function however will need to await for CSF cryptococcal antigen to return Authorized and Performed by: MD Paredes Total critical care time: Approximately 75 minutes Due to a high probability of clinically significant, life threatening deterioration, the patient required my highest level of preparedness to intervene emergently and I personally spent this critical care time directly and personally managing the patient. This critical care time included obtaining a history; examining the patient; pulse oximetry; ordering and review of studies; arranging urgent treatment with development of a management plan; evaluation of patient's response to treatment; frequent reassessment; and, discussions with other providers. This critical care time was performed to assess and manage the high probability of imminent, life-threatening deterioration that could result in multi-organ failure. It was exclusive of separately billable procedures and treating other patients and teaching time. Plan discussed with: Other Dietary Evaluation Review Comments: 1. advance diet when medically feasible: Renal Sepcific 40g Protein restriction diet, supplement his protein needs with clinimix @ 41ml/hr (42.5 gPro 510 kcal) 2. TPN per pharmacy if NPO > 7 days Expected Outcomes/Goals: gradual wt gain, improved nutrition status. grdual healed wounds. JONO CAPUTO MD Jul 21, 2024 11:14
[2024-07-21] MEDS ORDERED: TPN PER PHARMACY IV NR (22:00)
--- NOTE | 2024-07-23 12:42 | ECG ---
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
== END 2024-07-21 10:57 | DRG 974 ==
LOC: EAST 06-08 05:13 → DOU IN ICU 06-21 14:51 → TELE-EAST 06-23 23:43 → CATH ICU 07-06 18:33 → ICU WEST 07-07 00:53 → TELE-WESTW 07-09 18:24 → ICU CENTRL 07-12 17:54
PROVIDERS: ADMIT Internal Medicine Pulmonary Disease; ATTEND Internal Medicine
PROC: 0B9D8ZX Drainage of Right Middle Lung Lobe, Via Natural or Artificial Opening Endoscopic, Diagnostic (ICD-10-PCS; 2024-06-12)
PROC: 0B9H8ZX Drainage of Lung Lingula, Via Natural or Artificial Opening Endoscopic, Diagnostic (ICD-10-PCS; principal; 2024-06-12 08:15)
PROC: 05HB33Z Insertion of Infusion Device into Right Basilic Vein, Percutaneous Approach (ICD-10-PCS; 2024-06-21)
PROC: B54MZZA Ultrasonography of Right Upper Extremity Veins, Guidance (ICD-10-PCS; 2024-06-21)
PROC: 009U3ZX Drainage of Spinal Canal, Percutaneous Approach, Diagnostic (ICD-10-PCS; 2024-07-11)
PROC: 05H933Z Insertion of Infusion Device into Right Brachial Vein, Percutaneous Approach (ICD-10-PCS; 2024-07-12)
PROC: B54MZZA Ultrasonography of Right Upper Extremity Veins, Guidance (ICD-10-PCS; 2024-07-12)
PROC: 02HV33Z Insertion of Infusion Device into Superior Vena Cava, Percutaneous Approach (ICD-10-PCS; 2024-07-17)
PROC: B548ZZA Ultrasonography of Superior Vena Cava, Guidance (ICD-10-PCS; 2024-07-17)
PROC: 30233N1 Transfusion of Nonautologous Red Blood Cells into Peripheral Vein, Percutaneous Approach (ICD-10-PCS; 2024-07-19)
PROC: 5A12012 Performance of Cardiac Output, Single, Manual (ICD-10-PCS; 2024-07-21)
DX: A41.89 Other specified sepsis (principal); G03.9 Meningitis, unspecified; B20 Human immunodeficiency virus [HIV] disease; J96.01 Acute respiratory failure with hypoxia; R65.21 Severe sepsis with septic shock; G92.8 Other toxic encephalopathy; N17.0 Acute kidney failure with tubular necrosis; J16.8 Pneumonia due to other specified infectious organisms; K85.90 Acute pancreatitis without necrosis or infection, unspecified; E22.2 Syndrome of inappropriate secretion of antidiuretic hormone; M62.82 Rhabdomyolysis; E87.20 Acidosis, unspecified; K83.09 Other cholangitis; N39.0 Urinary tract infection, site not specified; E87.3 Alkalosis; A31.0 Pulmonary mycobacterial infection; A15.9 Respiratory tuberculosis unspecified; B37.0 Candidal stomatitis; M41.9 Scoliosis, unspecified; E27.8 Other specified disorders of adrenal gland; D50.9 Iron deficiency anemia, unspecified; E87.5 Hyperkalemia; T36.8X5A Adverse effect of other systemic antibiotics, initial encounter; B95.2 Enterococcus as the cause of diseases classified elsewhere; R79.89 Other specified abnormal findings of blood chemistry; G40.901 Epilepsy, unspecified, not intractable, with status epilepticus; R91.1 Solitary pulmonary nodule; R50.81 Fever presenting with conditions classified elsewhere; E87.6 Hypokalemia; D70.3 Neutropenia due to infection; Z20.822 Contact with and (suspected) exposure to COVID-19; Z83.3 Family history of diabetes mellitus; Z99.81 Dependence on supplemental oxygen; Z78.9 Other specified health status; Z82.49 Family history of ischemic heart disease and other diseases of the circulatory system; Z91.148 Patient's other noncompliance with medication regimen for other reason
CPT/HCPCS: 36415; 36569; 36600; 70450; 70553; 71045; 71250; 71275; 74018; 74176; 74181; 76705; 76775; 76937; 80048; 80053; 80074; 80076; 80185; 80202; 80307; 80320; 80329; 81001; 82140; 82248; 82533; 82550; 82570; 82728; 82805; 82945; 82962; 83010; 83605; 83615; 83690; 83735; 83880; 83930; 83935; 84100; 84132; 84156; 84157; 84295; 84300; 84443; 84478; 84484; 84550; 85007; 85014; 85018; 85025; 85027; 85045; 85048; 85379; 85610; 85730; 86360; 86592; 86644; 86645; 86664; 86703; 86738; 86850; 86900; 86901; 86920; 87040; 87045; 87070; 87077; 87081; 87086; 87088; 87177; 87186; 87205; 87278; 87389; 87426; 87427; 87493; 87529; 87536; 87804; 87899; 89051; 93005; 93017; 93306; 94640; 95819; G0378; J0131; J0171; J0692; J1450; J2250; J2405; J2470; J2543; J3430; J3480; J3490; J7060; J7131; P9047